=== PATIENT | male | born 1945 | race Caucasian/White ===

== ENCOUNTER 2019-09-14 06:28 | Inpatient (IN) | payer MEDICARE ==
[~2019-09-14] VITALS: Ht 175.3 cm; Wt 70.5 kg
--- OUTSIDE RECORDS SUMMARY | ~2019-09-14 | XMS | Encounter Summary ---
Demographics + + + | Address | [address] | | | [place] [address] | + + + | Home Phone | | + + + | Preferred Language | Unknown | + + + | Marital Status | Single | + + + | Hindu Affiliation | Unknown | + + + | Race | Unknown | + + + | Ethnic Group | Unknown | + + + Author + + + | Author | [facility] | | | and [facility] | + + + | Organization | [facility] | | | and [facility] | + + + | Address | Unknown | + + + | Phone | Unavailable | + + + Support + + + + + | Name | Relationship | Address | Phone | + + + + + | Val Torrez | ECON | [address] | | | | | [place] [address] | | + + + + + Care Team Providers + +------+ + | Care Director Critical Care Name | Role | Phone | + +------+ + | Shi Miramontes | PCP | | + +------+ + Reason for Visit Auth/Cert +--------+--------+ + + + + | Status | Reason | Specialty | Diagnoses / | Referred By | Referred To | | | | | Procedures | Contact | Contact | +--------+--------+ + + + + | | | | Diagnoses | | | | | | | Cellulitis | | | | | | | of foot | | | | | | | Cellulitis | | | | | | | of third | | | | | | | toe, left | | | | | | | Toe necrosis | | | | | | | (HCC) | | | | | | | 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 | | | | | | | foot (HCC) | | | | | | | | | | +--------+--------+ + + + + Encounter Details +--------+ + + + + | Date | Type | Department | Care Team | Description | +--------+ + + + + | 05/04/ | Anesthesia | [facility] | Vikram Cheung | | | 2019 | Event | [facility] | MD Hanh [address] | | | | | [address] | [place] | | | | | [place] | [id number] | | | | | [address] | [phone] | | | | | [phone] | | | +--------+ + + + + Anesthesia Record + + + + + | Procedure Name | Responsible | Anesthesia Start | Anesthesia Stop Time | | | Anesthesiologist | Time | | + + + + + | LEFT 3RD, 4TH, AND | Vikram Cheung, | 05/04/196 | 05/04/192248 | | 5TH TOE AMPUTATION | MD | | | | (Left Foot) | | | | + + + + + +----+---+ + + | Da | T | Event | Comment | | te | i | | | | | m | | | | | e | | | +----+---+ + + | 12 | 2 | An Checkout | Pre-use anesthesia machine/equipment checkout. | | /1 | 1 | | | | 2/ | 3 | | | | 20 | 0 | | | | 19 | | | | +----+---+ + + | | 2 | | | | | 1 | | | | | 4 | | | | | 5 | | | +----+---+ + + | | 2 | An Start | | | | 1 | Data | | | | 4 | | | | | 5 | | | +----+---+ + + | | 2 | An Start | Room ready, anesthesia equipment checked, essential drugs & | | | 1 | | equipment available. Patient Identity checked, anesthesia plan | | | 4 | | explained and consent obtained. Patient transported to OR, | | | 6 | | Monitors applied. Reassessment prior to anesthesia | | | | | induction/procedure. | +----+---+ + + | | 2 | an tsering now | | | | 1 | | | | | 4 | | | | | 7 | | | +----+---+ + + | | 2 | AN | Per surgeon request | | | 1 | Antibiotic | | | | 4 | declined | | | | 8 | | | +----+---+ + + | | 2 | Preoxygenat | Oxygen administered, patient sedated, ventilating spontaneously. | | | 1 | ed | | | | 5 | | | | | 4 | | | +----+---+ + + | | 2 | An | | | | 1 | Induction | | | | 5 | | | | | 5 | | | +----+---+ + + | | 2 | An | Smooth IV induction, easy mask airway. LMA placed and well | | | 1 | Intubation | seated. Breathing Circuit attached to LMA. BSEB/ETCO2 | | | 5 | | (auscultation and capnography) and placement confirmed. | | | 7 | | | +----+---+ + + | | 2 | AN Bite | | | | 1 | Block | | | | 5 | | | | | 8 | | | +----+---+ + + | | 2 | Seymour | | | | 2 | 43-degrees | | | | 0 | | | | | 0 | | | +----+---+ + + | | 2 | Pre-Procedu | | | | 2 | ral Timeout | | | | 0 | Completed | | | | 1 | | | +----+---+ + + | | 2 | First | | | | 2 | Inc/Proc St | | | | 0 | | | | | 2 | | | +----+---+ + + | | 2 | an tsering now | PACU 2 | | | 2 | | | | | 4 | | | | | 4 | | | +----+---+ + + | | 2 | Extubation/ | | | | 2 | Airway LDA | | | | 4 | Removal | | | | 4 | | | +----+---+ + + | | 2 | an stop | | | | 2 | data | | | | 4 | | | | | 4 | | | +----+---+ + + | | 2 | An Stop | Patient handed off to recovery nurse. | | | 4 | | | | | 9 | | | +----+---+ + + +------+ | Meds | +------+ + +--------+ | Name | Total | + +--------+ | propofol | 100 mg | + +--------+ | LR (Infusion) | 700 mL | + +--------+ + + | Name | + + | N2O Flow Rate (L/Min) | + + | O2 Flow Rate (L/Min) | + + | Insp O2 | + + | Exp SEV | + + | Air Flow Rate (L/Min) | + + + + | No blood administrations on file. | + + +--------+ + + + | Type | Details | Placement | Removal | +--------+ + + + | Wound | 05/04/19 (present upon arrival to | 05/04/19 2250 by | | | | [email or web address]); 2250; Incision; Left; | Trang Mata RN | | | | other (see comments) (3rd. 4th, | | | | | and 5th toes amputated); | | | | | amputation stump | | | +--------+ + + + | Wound | 02/17/19; 1257; Incision; Left; | 02/17/19 1257 by | 05/04/19 2347 by | | | foot; Amputation; 05/04/19; 2346 | Dimple Ferguson RN | Trang Mata RN | +--------+ + + + | Periph | 05/04/19; 173; Right; Posterior | 05/04/191736 by | 05/06/19 1430 by | | eral | (dorsal); Hand; [id number] | Grecia Suarez RN | Kenia Webster RN | | IV | catheter system; 20 gauge; 0; | | | | | distraction, tolerated well; | | | | | lumen/catheter not patent, | | | | | catheter/device intact; 05/06/19; | | | | | 1430 | | | +--------+ + + + | Airway | Placement Date: 05/04/19; | 05/04/192156 by | 05/04/192243 by | | | Placement Time: 2156 (created via | Vikramjuliano Cheung, | Vikram Cheung, | | | procedure documentation); Mask | MD | MD | | | Ventilation: EZ; Attempts: 1; | | | | | Airway Type: laryngeal mask; | | | | | Size: 5; Trauma: none; Placement | | | | | Check: exhaled CO2 detection | | | | | device, bilateral chest rise, | | | | | breath sounds equal bilaterally; | | | | | Removal Date: 05/04/19; Removal | | | | | Time: 2243; Additional Comments: | | | | | Smooth IV induction. LMA placed | | | | | and well seated. Secured in | | | | | place. Breathing Circuit attached | | | | | to LMA. BSEB/ETCO2 | | | | | (auscultation and capnography) | | | | | and placement confirmed. | | | +--------+ + + + documented in this encounter Social History + + + +--------+------+ | Tobacco Use | Types | Packs/Day | Years | Date | | | | | Used | | + + + +--------+------+ | Current Every Day | Cigarettes | 1 | 59 | | | Smoker | | | | | + + + +--------+------+ + +---+---+---+ | Smokeless Tobacco: | | | | | Never Used | | | | + +---+---+---+ + + +---------+ + | Alcohol Use | Drinks/Week | oz/Week | Comments | + + +---------+ + | Yes | 28 Cans of beer | 28.0 | | + + +---------+ + + + + | Sex Assigned at | Date Recorded | | | | + + + | Not on file | | + + + + + + + | Job Start Date | Occupation | Industry | + + + + | Not on file | Not on file | Not on file | + + + + + + + + | Travel History | Travel Start | Travel End | + + + + + + | No recent travel history available. | + + documented as of this encounter Functional Status + + + + | Functional Status | Response | Date of Assessment | + + + + | Are you deaf or do you have serious | No | 03/20/2017 | | difficulty hearing? | | | + + + + | Are you blind or do you have serious | Yes | 03/20/2017 | | difficulty seeing, even when wearing | | | | glasses? | | | + + + + | Do you have serious difficulty walking or | Yes | 03/20/2017 | | climbing stairs? (5 years old or older) | | | + + + + | Do you have difficulty dressing or bathing? | No | 03/20/2017 | | (5 years old or older) | | | + + + + | Because of a physical, mental, or emotional | No | 03/20/2017 | | condition, do you have difficulty doing | | | | errands alone such as visiting a doctor's | | | | office or shopping? [15 years old or | | | | older)] | | | + + + + + + + + | Cognitive Status | Response | Date of Assessment | + + + + | Because of a physical, mental, or emotional | No | 03/20/2017 | | condition, do you have serious difficulty | | | | concentrating, remembering, or making | | | | decisions? (5 years old or older) | | | + + + + documented as of this encounter Plan of Treatment Not on filedocumented as of this encounter Procedures + +--------+ + + + | Procedure Name | Priori | Date/Time | Associated Diagnosis | Comments | | | ty | | | | + +--------+ + + + | ANE AIRWAY NOTE | Routin | 05/04/2019 | | Results for this | | | e | 10:07 PM | | procedure are in the | | | | PST | | results section. | + +--------+ + + + documented in this encounter Results Airway (05/04/2019 10:07 PM PST) + + + | Narrative | Performed At | + + + | Vikram Cheung MD 05/04/2019 10:07 PM Anesthesia Airway | | | Placement 05/04/2019 9:57 PM Preprocedure check: patient | | | identified, oxygen, airway assessed, patient reassessment prior to | | | induction, airway equipment checked and suction Rapid Sequence | | | Induction: no Mask ventilation: easy Attempts: 1 Airway type: | | | laryngeal mask Size: 5 Cuffed: cuffed Route, reference point: | | | center of mouth Tube secured with: adhesive tape Trauma: none Tube | | | placement verification: carbon dioxide detection, equal bilateral | | | breath sounds and bilateral chest rise Performing provider: Vikram | | | Hanh Cheung MD Authorizing provider: Vikram Cheung MD | | | Comments: Smooth IV induction. LMA placed and well seated. Secured | | | in place. Breathing Circuit attached to LMA. BSEB/ETCO2 | | | (auscultation and capnography) and placement confirmed. Please | | | see intraoperative grid for any additional medication documentation. | | + + + documented in this encounter Visit Diagnoses Not on filedocumented in this encounter Administered Medications + +---------+ +------+------+------+ | Medication Order | MAR | Action | Dose | Rate | Site | | | Action | Date | | | | + +---------+ +------+------+------+ | lactated ringers (LR) infusion | New Bag | 05/04/20 | | | | | Intravenous, CONTINUOUS PRN, | | 19 9:48 | | | | | Starting [facility] 05/04/19 at 2148, | | PM PST | | | | | Anesthesia Intra-op | | | | | | + +---------+ +------+------+------+ +---+---+ | | | +---+---+ + +-------+ +-------+---+---+ | propofol (DIPRIVAN) injection | Given | 05/04/20 | 50 mg | | | | Intravenous, PRN, Starting Nelida | | 19 9:55 | | | | | 05/04/19 at 2154, Anesthesia | | PM PST | | | | | Intra-op | | | | | | + +-------+ +-------+---+---+ +-------+ +-------+---+---+ | Given | 05/04/20 | 50 mg | | | | | 19 9:54 | | | | | | PM PST | | | | +-------+ +-------+---+---+ +---+---+ | | | +---+---+ documented in this encounter"
--- OUTSIDE RECORDS SUMMARY | ~2019-09-14 | XMS | Encounter Summary ---
Demographics + + + | Address | [address] | | | [place] [address] | + + + | Home Phone | | + + + | Preferred Language | Unknown | + + + | Marital Status | Single | + + + | Sikhism Affiliation | Unknown | + + + | Race | Unknown | + + + | Ethnic Group | Unknown | + + + Author + + + | Author | [facility] | | | and [facility] | + + + | Organization | [facility] | | | [...] | | | | | [place] [address] | | + + + + + Care Team Providers + +------+ + | Care Barometers Calibrator Name | Role | Phone | + +------+ + | Debora Butts | PCP | | + +------+ + Reason for Visit + + + | Reason | Comments | + + + | Abdominal Pain | | + + + Auth/Cert +--------+--------+ + + + + | Status | Reason | Specialty | Diagnoses / | Referred By | Referred To | | | | | Procedures | Contact | Contact | +--------+--------+ + + + + | Closed | | | Diagnoses | | | | | | | Ileus (HCC) | | | | | | | | | | +--------+--------+ + + + + Encounter Details +--------+ + + + + | Date | Type | Department | Care Team | Description | +--------+ + + + + | 11/28/ | Hospital | [facility] | Behzad Whitney, | Ileus (HCC) (Primary | | 2013 - | Encounter | [facility] | [address] | Dx); Diabetes | | | | [address] | [place] | mellitus (HCC); | | 12/03/ | | [place] [id number] | [id number] | Hyponatremia | | 2013 | | [phone] | | | | | | | Dc Danielle MD | | | | | | [address] | | | | | | [place] | | | | | | [address] | | | | | | | | +--------+ + + + + Social History + + + +--------+------+ | Tobacco Use | Types | Packs/Day | Years | Date | | | | | Used | | + + + +--------+------+ | Current Every Day | Cigarettes | 1 | | | | Smoker | | | | | + + + +--------+------+ + +---+---+---+ | Smokeless Tobacco: | | | | | Never Used | | | | + +---+---+---+ + + +---------+ + | Alcohol Use | Drinks/Week | oz/Week | Comments | + + +---------+ + | Yes | | | 4 times/week | + + +---------+ + + + [...] + + documented as of this encounter Last Filed Vital Signs + + + + + | Vital Sign | Reading | Time Taken | Comments | + + + + + | Blood Pressure | 154/75 | 12/03/2013 8:00 AM | | | | | PDT | | + + + + + | Pulse | 88 | 12/03/2013 8:00 AM | | | | | PDT | | + + + + + | Temperature | 37.6 C (99.7 F) | 12/03/2013 8:00 AM | | | | | PDT | | + + + + + | Respiratory Rate | 20 | 12/03/2013 8:00 AM | | | | | PDT | | + + + + + | Oxygen Saturation | 92% | 12/03/2013 8:00 AM | | | | | PDT | | + + + + + | Inhaled Oxygen | - | - | | | Concentration | | | | + + + + + | Weight | 88.5 kg (195 lb) | 11/29/2013 12:00 AM | | | | | PDT | | + + + + + | Height | 172.7 cm (5' 8") | 11/28/2013 1:07 PM | | | | | PDT | | + + + + + | Body Mass Index | 29.65 | 11/28/2013 1:07 PM | | | | | PDT | | + + + + + documented in this encounter Discharge Summaries Bipin Mcconnell MD - 01/09/2014 11:[address] [address] DISCHARGE SUMMARY BIPIN MCCONNELL MD Patient: VALENTINA MUELLER Admitting: DC DANIELLE MR #: [id number] LOC: PT TYPE: Adm Date: 11/28/2013 : 1945 Date Of Service: 12/03/2013 DATE OF ADMISSION: 11/28/2013. DATE OF DISCHARGE: 12/03/2013. ADMITTING DIAGNOSIS: Acute cholecystitis PROCEDURE PERFORMED: The patient underwent laparoscopic cholecystectomy with intraoperati ve cholangiogram, laparoscopic appendectomy, lysis of adhesions, and repair of a small deborah l tear. Postoperatively, the patient had an ileus for a period of time and was doing fairl y well. He was placed on Zosyn perioperatively. His blood sugars were doing well. He was managed by the medical hospitalist. He continued to improve each day, was ambulating. By postoperative day 2, the patient wanted his NG tube out, was voiding okay, and felt like h is abdominal pain was significantly improved. On postoperative day #4, the patient was giv en some clear liquids and was tolerating those. His abdomen was a little bit protuberant. He was given a Dulcolax suppository and his diet was advanced. On postoperative day 5, alejandro lakhani had a bowel movement and was voiding okay. He felt good enough to go home, was afebrile, and was subsequently sent home with followup with myself in approximately 1 week's time. The patient was given pain medications and stool softeners and to have a limitation of no lifting over 20 pounds for approximately 2 weeks postoperatively. The patient was sent malu e by Dr. Huang in my absence. Laboratory studies had returned to normal levels. BIPIN MCCONNELL MD Dictated by BIPIN MCCONNELL MD 01/09/2014 11:53:42 Transcribed on 01/09/2014 12:14:26 by laurie job# [id number] Confirmation #: [id number] signed by Bipin Mcconnell MD at 01/09/2014 1:43 PM P DTdocumented in this encounter Medications at Time of Discharge + + + +---------+--------+ + | Medication | Sig | Dispensed | Refills | Start | End Date | | | | | | Date | | + + + +---------+--------+ + | ascorbic acid | Take 500 mg by mouth | | 0 | | | | (VITAMIN C) 500 mg | Daily. | | | | | | tablet | | | | | | + + + +---------+--------+ + | aspirin 81 MG EC | Take 81 mg by mouth | | 0 | | | | tablet | Daily. | | | | | + + + +---------+--------+ + | calcium-vitamin D | Take 1,200 mg by | | 0 | | | | (CALCIUM 600 + D) | mouth every evening. | | | | | | 600-400 MG-UNIT TABS | | | | | | + + + +---------+--------+ + | cholecalciferol | Take 2,000 Units by | | 0 | | | | (VITAMIN D-3) 1,000 | mouth Daily. | | | | | | units tablet | | | | | | + + + +---------+--------+ + | docusate sodium | Take 250 mg by mouth | | 0 | | | | (COLACE) 250 MG | 2 times daily. | | | | | | capsule | | | | | | + + + +---------+--------+ + | magnesium oxide | Take 840 mg by mouth | | 0 | | | | (MAOX) 420 MG TABS | Daily. | | | | | + + + +---------+--------+ + | metformin | Take 1,000 mg by | | 0 | | | | (GLUCOPHAGE) 1000 MG | mouth 2 times daily | | | | | | tablet | (with breakfast & | | | | | | | dinner). | | | | | + + + +---------+--------+ + | senna (SENOKOT) | Take 1 tablet by | | 0 | | | | 8.6 mg tablet | mouth Daily. | | | | | + + + +---------+--------+ + | simvastatin | Take 20 mg by mouth | | 0 | | | | (ZOCOR) 20 mg tablet | nightly. | | | | | + + + +---------+--------+ + | traZODone | Take 150 mg by mouth | | 0 | | | | (DESYREL) 150 MG | nightly. | | | | | | tablet | | | | | | + + + +---------+--------+ + | cyanocobalamin | Take 500 mcg by | | 0 | | | | (VITAMIN B-12) 500 | mouth Daily. | | | | 7 | | mcg tablet | | | | | | + + + +---------+--------+ + | gabapentin | Take 600 mg by mouth | | 0 | | | | (NEURONTIN) 300 mg | 2 times daily. Take | | | | 7 | | capsule | two capsules by | | | | | | | moutheach morning | | | | | | | and take two | | | | | | | capsules at noon and | | | | | | | take three capsules | | | | | | | at bedtime. | | | | | + + + +---------+--------+ + | | Take 1 tablet by | | 0 | | | | HYDROcodone-acetamin | mouth 4 times daily | | | | 9 | | ophen (NORCO) 10-325 | as needed for Pain. | | | | | | mg per tablet | | | | | | + + + +---------+--------+ + | lisinopril | Take 20 mg by mouth | | 0 | | | | (PRINIVIL, ZESTRIL) | Daily. | | | | 7 | | 20 mg tablet | | | | | | + + + +---------+--------+ + | metoprolol | Take 25 mg by mouth | | 0 | | | | succinate | Daily. | | | | 7 | | (TOPROL-XL) 25 mg 24 | | | | | | | hr tablet | | | | | | + + + +---------+--------+ + | nicotine | Place 1 patch onto | | 0 | | | | (NICODERM) 14 mg/24 | the skin every 24 | | | | 6 | | hr | hours. | | | | | + + + +---------+--------+ + | sildenafil | Take 50 mg by mouth | | 0 | | | | (VIAGRA) 50 MG | as needed. | | | | 9 | | tablet | | | | | | + + + +---------+--------+ + documented as of this encounter Progress Notes Wilder Huang MD - 12/03/2013 9:16 AM PDTHe had a BM. Minimal pain. Voiding OK. Wan ts to go home. VS stable. Afebrile. Abdomen: Soft, minimal tenderness. Now having serous drainage from lateral trocar site. Plan: Discharge home. F/U with Dr. Mcconnell this week. Dc Rendon MD - 12/02/2013 2:47 PM PDT [facility] Hospitalist Progress Note Valentina Mueller is a 68 y.o. male ASSESSMENT and PLAN: 1. Gangrenous cholecystitis Patient continues on Zosyn postoperatively. 2. Hyponatremia Improved. 3. Diabetes mellitus Blood sugars remain good being 123-144 SUBJECTIVE: Mr. Mueller reports he is feeling better each day. His pain is better managed, he states h e feels like he is going to have a bowel movement soon, and is hopeful for discharge in the a.m. VITALS: Temp: 36.6 C (97.9 F), Pulse: 64 , Resp: 20 , BP: 124/64 mmHg, SpO2 92 % on room air at flow rate 2 L/min Temp Min: 36.6 C (97.9 F) Max: 37.2 C (99 F) Weight: 88.451 kg (195 lb) Intake/Output Summary (Last 24 hours) at 12/02/13 1447 Last data filed at 12/02/13 1400 Gross per 24 hour Intake 1937 ml Output 820 ml Net 1117 ml PHYSICAL EXAM: Cardiovascular: Regular rate and rhythm Respiratory: Clear Abdomen: Soft with postoperative tenderness. Bowel sounds hypoactive but present DIAGNOSTIC STUDIES: Available data and images were reviewed personally. Significant results and findings are a ddressed here or in the Assessment and Plan. Lab Results Component Value Date HGB 13.6 12/02/2013 HCT 40.0 12/02/2013 PLT 365 12/02/2013 WBC 12.4* 12/02/2013 Lab Results Component Value Date NA 139 12/02/2013 K 3.4* 12/02/2013 CL 106 12/02/2013 CO2 25 12/02/2013 CREA 0.64 12/02/2013 BUN 5* 12/02/2013 CRP 132.9* 06/10/2012 ESR 12 06/08/2012 POC GLUCOSE Date/Time Value Range Status 06/10/2012 1645 99 79 - 150 md/dL Final POC Glucose Date/Time Value Range Status 12/02/2013 1220 144 79-150 mg/dL Final 12/02/2013 0700 133 79-150 mg/dL Final 12/01/2013 2048 123 79-150 mg/dL Final POC GLUCOSE Date/Time Value Range Status 06/10/2012 1645 99 79 - 150 md/dL Final POC Glucose Date/Time Value Range Status 12/02/2013 1220 144 79-150 mg/dL Final 12/02/2013 0700 133 79-150 mg/dL Final 12/01/2013 2048 123 79-150 mg/dL Final No results found. Total time of approximately 20 minutes was spent with the patient and/or patient's family, and/or on the patient's floor/unit, of which more than 50% was spent counseling and/or coord ination the patient's care as outlined above. Dc Danielle 12/02/2013 14:47 [facility] Portions of this chart may have been created with [employer] voice recognition software. Occasi onal wrong-word or sound-alike substitutions may have occurred due to the inherent leigh itations of voice recognition software. Please read the chart carefully and recognize, using context, where these substitutions have occurred Wilder Perkins MD - 12/02/2013 12:54 PM PDTNo BM yet. Tolerating clear liquids. Good pain control Afebrile. VS stable Abdomen-protruberant, soft, minimal tenderness. Plan: Dulcolax suppository. Advance diet.Electronically signed by Wilder Huang MD at 0 12/02/2013 12:55 PM Wilder Perkins MD - 12/01/2013 6:[address] Mcconnell Comfortable. Wants NG out. Denies flatus or stool. Voiding ok. Says his abdominal pain is much better than preop. Afeb. VS stable. I/O ok Lungs clear Heart regular Abd. Mildly distended, soft, a few BS IMP: Postop ileus Plan: D/C NG tube. MOM. P M Dc Rendon MD - 12/01/2013 3:55 PM PDT [facility] Hospitalist Progress Note Valentina Mueller is a 68 y.o. male ASSESSMENT and PLAN: 1. Gangrenous cholecystitis Patient remains on Zosyn postoperatively. Surgery will assess later today, with the patien t currently without a BM or gas but feeling clinically improved. 2. Diabetes mellitus Blood sugars are doing well ranging from 99-140. 3. Hyponatremia Resolved 4. History of small bowel injury with take down of adhesions Doing well in the postop phase SUBJECTIVE: Patient reports that he is better. He is wondering what he is getting his NG out and won ders when he gets to go home. He reports some abdominal fullness but reduction in pain comp ared to yesterday. He reports no bowel gas being passed thus far had no stooling. VITALS: Temp: 36.6 C (97.9 F), Pulse: 97 , Resp: 18 , BP: 131/63 mmHg, SpO2 95 % on room air at flow rate 2 L/min Temp Min: 36.6 C (97.9 F) Max: 37.6 C (99.7 F) Weight: 88.451 kg (195 lb) Intake/Output Summary (Last 24 hours) at 12/01/13 1555 Last data filed at 12/01/13 1400 Gross per 24 hour Intake 1100 ml Output 1950 ml Net -850 ml PHYSICAL EXAM: Cardiovascular: Regular rate and rhythm Respiratory: Clear to auscultation and percussion Abdomen: Postoperative abdomen with minimal bowel sounds but no abnormal tenderness DIAGNOSTIC STUDIES: Available data and images were reviewed personally. Significant results and findings are a ddressed here or in the Assessment and Plan. Lab Results Component Value Date HGB 14.6 12/01/2013 HCT 42.5 12/01/2013 PLT 369 12/01/2013 WBC 12.0* 12/01/2013 Lab Results Component Value Date NA 142 12/01/2013 K 4.4 12/01/2013 CL 106 12/01/2013 CO2 23* 12/01/2013 CREA 0.76 12/01/2013 BUN 9 12/01/2013 CRP 132.9* 06/10/2012 ESR 12 06/08/2012 POC GLUCOSE Date/Time Value Range Status 06/10/2012 1645 99 79 - 150 md/dL Final POC Glucose Date/Time Value Range Status 12/01/2013 1203 132 79-150 mg/dL Final 12/01/2013 0638 99 79-150 mg/dL Final 11/30/2013 2010 117 79-150 mg/dL Final POC GLUCOSE Date/Time Value Range Status 06/10/2012 1645 99 79 - 150 md/dL Final POC Glucose Date/Time Value Range Status 12/01/2013 1203 132 79-150 mg/dL Final 12/01/2013 0638 99 79-150 mg/dL Final 11/30/20132009 117 79-150 mg/dL Final Fl Cholangiogram Intraoperative 11/30/2013 INTRAOPERATIVE CHOLANGIOGRAM: 11/30/2013 10:34 AM CLINICAL HISTORY: Cholecystect dianne. intra op FINDINGS: C-arm spot films from the operating room are reviewed. These show t he injection of contrast material into the cystic duct. Contrast outlines a normal caliber c ommon bile duct and common hepatic duct with normal appearance of the intrahepatic ducts. No stricture or dilated segment is seen. On some of the early images radiolucent filling defec ts are questioned in the distal common bile duct near the ampulla. No reflux of contrast int o the pancreatic duct. Only a small amount of contrast can be seen flowing into the duodenum . IMPRESSION - Normal caliber biliary ducts, but radiolucent filling defect is questioned i n the distal common bile duct near the ampulla. This may represent stone or clot. Only a sma ll amount of contrast flows into the duodenum. Dictated and Signed by: Osmin Loredo MD Electronically signed: 11/30/2013 10:57 AM Total time of approximately 25 minutes was spent with the patient and/or patient's family, and/or on the patient's floor/unit, of which more than 50% was spent counseling and/or coord ination the patient's care as outlined above. Dc Danielle 12/01/2013 15:55 [facility] Portions of this chart may have been created with [employer] voice recognition software. Occasi onal wrong-word or sound-alike substitutions may have occurred due to the inherent leigh itations of voice recognition software. Please read the chart carefully and recognize, using context, where these substitutions have occurred arker, Dc Lakhani MD - 0 11/30/2013 5:09 PM PDT [facility] Hospitalist Progress Note Valentina Mueller is a 68 y.o. male ASSESSMENT and PLAN: 1. Gangrenous cholecystitis Patient remains on Zosyn postoperatively. We'll review with surgery the duration of treatm ent plan. 2. Appendicitis Status post resection 3. Small bowel obstruction Status post lysis of adhesions and repair of small bowel tear 4. Hyponatremia We'll obtain followup BMP in the a.m. 5. Diabetes mellitus Patient has slight scale and slurred thus far however blood sugars have been 75-100 not req uiring coverage. SUBJECTIVE: Patient currently is in discomfort postoperatively. He had a significant surgery today i ncluding removal of diseased gallbladder and appendix in addition to the take down of adhesi ons and repair of an enterostomy injury. VITALS: Temp: 37.2 C (99 F), Pulse: 100 , Resp: 20 , BP: 140/67 mmHg, SpO2 94 % on nasal cannul a at flow rate 1.5 L/min Temp Min: 36.2 C (97.2 F) Max: 37.2 C (99 F) Weight: 88.451 kg (195 lb) Intake/Output Summary (Last 24 hours) at 11/30/13 1709 Last data filed at 11/30/13 1500 Gross per 24 hour Intake 4347 ml Output 2650 ml Net 1697 ml PHYSICAL EXAM: Cardiovascular: Regular rate and rhythm Respiratory: Clear currently Abdomen: Obvious postoperative change; bowel sounds currently not present Extremities: SCD in place DIAGNOSTIC STUDIES: Available data and images were reviewed personally. Significant results and findings are a ddressed here or in the Assessment and Plan. Lab Results Component Value Date HGB 13.9 11/29/2013 HCT 41.2 11/29/2013 PLT 303 11/29/2013 WBC 10.9 11/29/2013 Lab Results Component Value Date NA 134* 11/29/2013 K 4.4 11/29/2013 CL 102 11/29/2013 CO2 21* 11/29/2013 CREA 1.09 11/29/2013 BUN 32* 11/29/2013 CRP 132.9* 06/10/2012 ESR 12 06/08/2012 POC GLUCOSE Date/Time Value Range Status 06/10/2012 1645 99 79 - 150 md/dL Final POC Glucose Date/Time Value Range Status 11/30/2013 0711 75* 79-150 mg/dL Final 11/29/2013 1742 92 79-150 mg/dL Final 11/29/2013 1141 96 79-150 mg/dL Final POC GLUCOSE Date/Time Value Range Status 06/10/2012 1645 99 79 - 150 md/dL Final POC Glucose Date/Time Value Range Status 11/30/2013 0711 75* 79-150 mg/dL Final 11/29/2013 1742 92 79-150 mg/dL Final 11/29/2013 1141 96 79-150 mg/dL Final Fl Cholangiogram Intraoperative 11/30/2013 INTRAOPERATIVE CHOLANGIOGRAM: 11/30/2013 10:34 AM CLINICAL HISTORY: Cholecystect dianne. intra op FINDINGS: C-arm spot films from the operating room are reviewed. These show t he injection of contrast material into the cystic duct. Contrast outlines a normal caliber c ommon bile duct and common hepatic duct with normal appearance of the intrahepatic ducts. No stricture or dilated segment is seen. On some of the early images radiolucent filling defec ts are questioned in the distal common bile duct near the ampulla. No reflux of contrast int o the pancreatic duct. Only a small amount of contrast can be seen flowing into the duodenum . IMPRESSION - Normal caliber biliary ducts, but radiolucent filling defect is questioned i n the distal common bile duct near the ampulla. This may represent stone or clot. Only a sma ll amount of contrast flows into the duodenum. Dictated and Signed by: Osmin Loredo MD Electronically signed: 11/30/2013 10:57 AM Nm Hepatobiliary 11/29/2013 NUCLEAR MEDICINE HEPATIC BILIARY SCAN: 11/29/2013 CLINICAL HISTORY: Right upper qu adrant pain. Biliary sludge on ultrasound, with no stones identified. FINDINGS: Patient is given 6.0 mCi of technetium labeled Choletec followed by scanning over the abdomen for 1 stephanie r. Initial images show good clearance from the background and a grossly normal hepatic outli ne suggesting normal hepatocellular function. Common bile duct is first seen at 12 minutes a nd small bowel activity is first seen at 18 minutes. This would be within normal range. Ove r 60 minutes of scanning small bowel activity steadily increases. No gallbladder is identifi ed at any time. Small amount tracer extends proximally into the left upper quadrant, suggest ing gastric reflux of bile. No other ectopic tracer accumulation. Because of nonvisualizati on of the gallbladder and patient's nothing by mouth status, no fatty meal challenge was giv en. IMPRESSION - 1. Nonfilling of the gallbladder over 60 minutes. This can be seen with ac tive cholecystitis. No common bile duct obstruction. 2. Gastric reflux of bile. Dictated a nd Signed by: Osmin Loredo MD Electronically signed: 11/29/2013 2:19 PM Total time of approximately 25 minutes was spent with the patient and/or patient's family, and/or on the patient's floor/unit, of which more than 50% was spent counseling and/or coord ination the patient's care as outlined above. Dc Danielle 11/30/2013 17:09 [facility] Portions of this chart may have been created with [employer] voice recognition software. Occasi onal wrong-word or sound-alike substitutions may have occurred due to the inherent leigh itations of voice recognition software. Please read the chart carefully and recognize, using context, where these substitutions have occurred Mary Clay RN - 0 11/30/2013 2:55 PM PDTPt back to rron after surgery, BP 156/91, HR 96, sats 95% on 2L/min O2 , patient medicated with dilaudid, dressings saturated on abd changed along with new gown. I V fluids cont at 100ml/hr. Mary Clay RN - 11/30/2013 10:19 AM PDTPatient down to OR for surgery per SAV hernandez. Dc Rendon MD - 11/29/2013 5:01 PM PDT [facility] Hospitalist Progress Note Valentina Mueller is a 68 y.o. male ASSESSMENT and PLAN: 1. Ileus Patient remains on nasogastric suctioning with 450 cc of nasogastric fluid out thus far tod ay and 700 yesterday after admission. He reports his abdomen is less tender. He does repor t that he had a bowel movement with Dulcolax suppository yesterday and that he feels that th is helped him. He's not had further BMs today. 2. Possible cholecystitis The patient had a high scan today which showed no visualization of the gallbladder. His hi story was of not eating for the past 3 days albeit he was not significantly azotemic. He ot herwise has mild thickening of the wall of his gallbladder and some sludge in his gallbladde r but no other findings on either ultrasound or CT. Given his hida scan findings I've asked Dr. Mcconnell to assess him relative to his opinion about whether or not this patient could lazo ve cholecystitis causing his ileus and his overall infirmity. Time is spent today discussin g with the patient gallbladder disease and the function of the gallbladder and the patient i s anxious for cholecystectomy but I've advised him that we may or may not recommend it and w e will rely on Dr. Mcconnell expertise relative to his thoughts about potential benefit. 3. Hyponatremia Likely secondary to the patient's water intake prior to admission and improved with IV flui ds SUBJECTIVE: She reports today that he symptomatically has improved relative to discomfort. Is tolera ting NG suctioning and continues to have a moderate output.he had no further problems with n ausea VITALS: Temp: 36.8 C (98.2 F), Pulse: 93 , Resp: 20 , BP: 105/55 mmHg, SpO2 93 % on room air at flow rate 2 L/min Temp Min: 36.5 C (97.7 F) Max: 36.8 C (98.2 F) Weight: 88.451 kg (195 lb) Intake/Output Summary (Last 24 hours) at 11/29/13 1701 Last data filed at 11/29/13 1400 Gross per 24 hour Intake 1796 ml Output 2050 ml Net -254 ml PHYSICAL EXAM: Cardiovascular: Regular rate and rhythm Respiratory: Clear with few scattered rhonchi Abdomen: Soft with tenderness but improved compared with the last 24 hours. Hypoactive b owel sounds are present Extremities: Not edema DIAGNOSTIC STUDIES: Available data and images were reviewed personally. Significant results and findings are a ddressed here or in the Assessment and Plan. Lab Results Component Value Date HGB 13.9 11/29/2013 HCT 41.2 11/29/2013 PLT 303 11/29/2013 WBC 10.9 11/29/2013 Lab Results Component Value Date NA 134* 11/29/2013 K 4.4 11/29/2013 CL 102 11/29/2013 CO2 21* 11/29/2013 CREA 1.09 11/29/2013 BUN 32* 11/29/2013 CRP 132.9* 06/10/2012 ESR 12 06/08/2012 POC GLUCOSE Date/Time Value Range Status 06/10/2012 1645 99 79 - 150 md/dL Final POC Glucose Date/Time Value Range Status 11/29/2013 1141 96 79-150 mg/dL Final 11/28/2013 2044 130 79-150 mg/dL Final POC GLUCOSE Date/Time Value Range Status 06/10/2012 1645 99 79 - 150 md/dL Final POC Glucose Date/Time Value Range Status 11/29/2013 1141 96 79-150 mg/dL Final 11/28/2013 2044 130 79-150 mg/dL Final Xr Abdomen Ap 11/29/2013 1 VIEW ABDOMEN: 11/28/2013 4:58 PM CLINICAL HISTORY: nasogastric tube placement co nfirmation COMPARISON: CT of this date FINDINGS: Nasogastric tube is present with tip in t he stomach. Multiple dilated loops of gas-filled small bowel with only a small amount of col onic gas. Appearances may represent obstruction or ileus. No free air. IMPRESSION - Satisfa ctory nasogastric tube position. Multiple dilated gas-filled loops of small bowel compatible with obstruction or ileus. Dictated and Signed by: Osmin Loredo MD Electronically sign ed: 11/29/2013 10:57 AM Nm Hepatobiliary 11/29/2013 NUCLEAR MEDICINE HEPATIC BILIARY SCAN: 11/29/2013 CLINICAL HISTORY: Right upper qu adrant pain. Biliary sludge on ultrasound, with no stones identified. FINDINGS: Patient is given 6.0 mCi of technetium labeled Choletec followed by scanning over the abdomen for 1 stephanie r. Initial images show good clearance from the background and a grossly normal hepatic outli ne suggesting normal hepatocellular function. Common bile duct is first seen at 12 minutes a nd small bowel activity is first seen at 18 minutes. This would be within normal range. Ove r 60 minutes of scanning small bowel activity steadily increases. No gallbladder is identifi ed at any time. Small amount tracer extends proximally into the left upper quadrant, suggest ing gastric reflux of bile. No other ectopic tracer accumulation. Because of nonvisualizati on of the gallbladder and patient's nothing by mouth status, no fatty meal challenge was giv en. IMPRESSION - 1. Nonfilling of the gallbladder over 60 minutes. This can be seen with ac tive cholecystitis. No common bile duct obstruction. 2. Gastric reflux of bile. Dictated a nd Signed by: Osmin Loredo MD Electronically signed: 11/29/2013 2:[address] Abdomen Pelvis W Contrast 11/28/[address] ABDOMEN AND PELVIS 11/28/2013 2:12 PM CLINICAL HISTORY: ABDOMINAL P AIN COMPARISON: None available TECHNIQUE: Axial images are performed through the ab domen and pelvis following the uneventful intravenous administration of 100 mL Omnipaque 350 contrast. Coronal and sagittal reformations are also performed. ABDOMEN FINDINGS: Mild dependent density and bandlike opacities in the imaged lung bases favor atelectasis. Small heavily calcified granulomata are present in the right lung base. Imaged mediastinum is unremarkable. There is generalized hypoattenuation of the liver, consistent with fatty i nfiltration. At least mild, generalized gallbladder wall thickening is suggested. No calci fied gallstone or biliary ductal dilation is evident. The spleen, pancreas, and adrenal gla nds are unremarkable. Numerous tiny calcifications are present along the margins of the devante al sinuses, many if not all of which appear vascular in origin. Numerous tiny low-attenuati on renal cysts are visible. There is no hydronephrosis. Moderately dilated, gas and fluid filled segments of small bowel are present throughout the abdomen. A focal transition point is not identified, although the distal ileum, which contains feculent appearing material, i s smaller in caliber relative to the dilated segments. More normal caliber segments of prox imal jejunum are visible also. The stomach and duodenum are mostly decompressed, containing a small volume of low attenuation fluid. The right colon contains gas and a small to moder ate volume of stool. The cecum is positioned in the anterior right mid abdomen. Normal jia iber appendix is visible in the right mid to lower abdomen. The left colon is decompressed. Minimal low-attenuation free fluid is present in the lower bowel mesentery. No bowel wall thickening, free air, pneumatosis, organized fluid, pathologic lymph node enlargement or he rnia is evident. There is extensive calcified and noncalcified plaque within the aortoiliac vessels. Heavily calcified stenoses of the proximal left common iliac artery and bilateral proximal superficial femoral arteries is suggested. Multilevel lumbar degenerative disc di sease and spondylosis are present, with variable multifactorial central canal and neuroforam inal stenosis. There is bilateral spondylolysis involving the lowest lumbar type vertebra, with anterolisthesis and severe neuroforaminal stenosis at the lumbosacral junction. PELVI S FINDINGS: The prostate is mild to moderately enlarged and contains central calcifications . Curvilinear calcifications are also present in the seminal vesicles. The bladder is unre markable, aside from the presence of a thin caliber urachal remnant extending toward the umb ilicus. Tiny fat-containing bilateral inguinal hernias are suggested. No free air or patho logic lymph node enlargement is evident. Asymmetric atrophy of the right gluteal musculatur e is noted. Bones and soft tissues are otherwise unremarkable. IMPRESSION - 1. MODERAT FAVIAN DILATED, GAS AND FLUID FILLED SEGMENTS OF SMALL BOWEL THROUGHOUT MUCH OF THE ABDOMEN WIT HOUT A DISCRETE TRANSITION POINT TO FAVOR THE PRESENCE OF HIGH-GRADE OBSTRUCTION. THE TERMI NAL ILEUM CONTAINS FECULENT APPEARING MATERIAL AND IS SMALLER IN CALIBER THAN THE DILATED SE GMENTS, HOWEVER NO BOWEL WALL THICKENING, PNEUMATOSIS OR OTHER SUSPICIOUS FINDING IS EVIDENT . A NORMAL CALIBER APPENDIX IS PRESENT. THERE IS NO EVIDENCE OF PERFORATION OR ABSCESS. 2 . NON-SPECIFIC GENERALIZED GALLBLADDER WALL THICKENING WITHOUT VISIBLE CALCIFIED GALLSTONE OR BILIARY DUCTAL DILATION. CLINICAL AND LABORATORY CORRELATION ADVISED, ALONG WITH CONSIDE RATION FOR FOLLOW-UP SONOGRAPHY. 3. GENERALIZED HYPOATTENUATION OF THE LIVER, CONSISTENT W ITH FATTY INFILTRATION. 4. TINY FAT-CONTAINING INGUINAL HERNIAS. 5. 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 6. LUMBAR DEGENERATIVE DISC DISEASE AND SPONDYLOSIS WITH LOWER LUMB AR SPONDYLOLYSIS, ANTEROLISTHESIS AND MULTILEVEL STENOSIS. Images were provided for interpr etation on November 28, 2013 at 1440 hours. Results were finalized at 1455 hours. Dictated and Signed by: Musa Davis MD Electronically signed: 11/28/2013 2:58 PM Us Abdomen Limited 11/29/2013 LIMITED RIGHT UPPER QUADRANT ULTRASOUND: 11/28/2013 3:30 PM CLINICAL HISTORY: ABDO DONNA PAIN COMPARISON:None FINDINGS: Liver:The liver is of normal echogenicity and echo ar chitecture. There is no intrahepatic biliary or venous dilation. No focal hepatic abnormalit ies are present. Gallbladder:Gallbladder shows a mildly thickened wall at 3.8 mm. No pericho lecystic fluid. Nonmobile echogenic focus along the gallbladder wall, compatible with polyp. Small amount of layering biliary sludge. No definite stones. Right upper quadrant tendernes s to transducer pressure. CBD: Common bile duct measures 6.3 mm Pancreas:Not well seen. Righ t kidney:Right kidney is also included on this examination. It shows normal echogenicity and echo architecture. There is no hydronephrosis. Maximum dimension is 13.0 cm. Vasculature:Bl ood flow in the inferior vena cava and hepatic veins is normal. Portal venous blood flow is normal in pattern and direction. IMPRESSION -Small amount of sludge in the gallbladder with out defined stone. Gallbladder wall thickening and possible polyp. Dictated and Signed by: Osmin Loredo MD Electronically signed: 11/29/2013 8:03 AM Total time of approximately 30 minutes was spent with the patient and/or patient's family, and/or on the patient's floor/unit, of which more than 50% was spent counseling and/or coord ination the patient's care as outlined above. Dc Danielle 11/29/2013 17:01 [facility] Portions of this chart may have been created with [employer] voice recognition software. Occasi onal wrong-word or sound-alike substitutions may have occurred due to the inherent leigh itations of voice recognition software. Please read the chart carefully and recognize, using context, where these substitutions have occurred att Zamarripa RN - 11/29/2013 2:49 PM PDTPatient placed back on low intermittent suction on NG tube.Electro nically signed by Matt Zamarripa RN at 11/29/2013 2:50 PM Jennifer Marte RN - 11/28/2013 7:15 PM [id number] Pt arrived from ER A/0x3 c/o abd pain , NG via rt. nare had to be retaped, IV in left AC resecured and extention placed, flushed w/o difficulty, pt has no t voided all day, immediately bladder scanned for 506cc, states he would like to void, jason tj up to sitting postion on side of bed voided 250cc, Dr. Danielle notified. IVF started, Re port given to Lynnette, meds started per MD order. documented in this encounter Plan of Treatment Not on filedocumented as of this encounter Procedures + +--------+ + + + | Procedure Name | Priori | Date/Time | Associated Diagnosis | Comments | | | ty | | | | + +--------+ + + + | POC GLUCOSE | Routin | 12/03/2013 | | Results for this | | | e | 11:39 AM | | procedure are in the | | | | PDT | | results section. | + +--------+ + + + | POC GLUCOSE | Routin | 12/03/2013 | | Results for this | | | e | 7:04 AM | | procedure are in the | | | | PDT | | results section. | + +--------+ + + + | POC GLUCOSE | Routin | 12/02/2013 | | Results for this | | | e | 9:12 PM | | procedure are in the | | | | PDT | | results section. | + +--------+ + + + | POC GLUCOSE | Routin | 12/02/2013 | | Results for this | | | e | 4:26 PM | | procedure are in the | | | | PDT | | results section. | + +--------+ + + + | POC GLUCOSE | Routin | 12/02/2013 | | Results for this | | | e | 12:20 PM | | procedure are in the | | | | PDT | | results section. | + +--------+ + + + | POC GLUCOSE | Routin | 12/02/2013 | | Results for this | | | e | 7:00 AM | | procedure are in the | | | | PDT | | results section. | + +--------+ + + + | CBC WITH | Routin | 12/02/2013 | | Results for this | | DIFFERENTIAL | e | 6:23 AM | | procedure are in the | | | | PDT | | results section. | + +--------+ + + + | BASIC METABOLIC | Routin | 12/02/2013 | | Results for this | | PANEL | e | 6:23 AM | | procedure are in the | | | | PDT | | results section. | + +--------+ + + + | POC GLUCOSE | Routin | 12/01/2013 | | Results for this | | | e | 8:48 PM | | procedure are in the | | | | PDT | | results section. | + +--------+ + + + | POC GLUCOSE | Routin | 12/01/2013 | | Results for this | | | e | 6:00 PM | | procedure are in the | | | | PDT | | results section. | + +--------+ + + + | POC GLUCOSE | Routin | 12/01/2013 | | Results for this | | | e | 12:03 PM | | procedure are in the | | | | PDT | | results section. | + +--------+ + + + | POC GLUCOSE | Routin | 12/01/2013 | | Results for this | | | e | 6:38 AM | | procedure are in the | | | | PDT | | results section. | + +--------+ + + + | CBC WITH | Routin | 12/01/2013 | | Results for this | | DIFFERENTIAL | e | 6:32 AM | | procedure are in the | | | | PDT | | results section. | + +--------+ + + + | COMPREHENSIVE | Routin | 12/01/2013 | | Results for this | | METABOLIC PANEL | e | 6:32 AM | | procedure are in the | | | | PDT | | results section. | + +--------+ + + + | POC GLUCOSE | Routin | 11/30/2013 | | Results for this | | | e | 8:10 PM | | procedure are in the | | | | PDT | | results section. | + +--------+ + + + | POC GLUCOSE | Routin | 11/30/2013 | | Results for this | | | e | 5:14 PM | | procedure are in the | | | | PDT | | results section. | + +--------+ + + + | FL CHOLANGIOGRAM | Routin | 11/30/2013 | | Results for this | | INTRAOPERATIVE | e | 10:34 AM | | procedure are in the | | | | PDT | | results section. | + +--------+ + + + | LAPAROSCOPIC | | 11/30/2013 | Acute gangrenous | | | CHOLECYSTECTOMY W/ | | 8:52 AM | cholecystitis | | | INTRA OPERATIVE | | PDT | Iatrogenic | | | CHOLANGIOGRAM | | | enterotomy | | | | | | Abdominal adhesions | | | | | | Small bowel | | | | | | obstruction (HCC) | | | | | | Appendicitis | | + +--------+ + + + | POC GLUCOSE | Routin | 11/30/2013 | | Results for this | | | e | 7:11 AM | | procedure are in the | | | | PDT | | results section. | + +--------+ + + + | POC GLUCOSE | Routin | 11/29/2013 | | Results for this | | | e | 5:42 PM | | procedure are in the | | | | PDT | | results section. | + +--------+ + + + | NM HEPATOBILIARY | Routin | 11/29/2013 | | Results for this | | | e | 1:03 PM | | procedure are in the | | | | PDT | | results section. | + +--------+ + + + | POC GLUCOSE | Routin | 11/29/2013 | | Results for this | | | e | 11:41 AM | | procedure are in the | | | | PDT | | results section. | + +--------+ + + + | CBC WITH | Routin | 11/29/2013 | | Results for this | | DIFFERENTIAL | e | 5:19 AM | | procedure are in the | | | | PDT | | results section. | + +--------+ + + + | COMPREHENSIVE | Routin | 11/29/2013 | | Results for this | | METABOLIC PANEL | e | 5:19 AM | | procedure are in the | | | | PDT | | results section. | + +--------+ + + + | POC GLUCOSE | Routin | 11/28/2013 | | Results for this | | | e | 8:44 PM | | procedure are in the | | | | PDT | | results section. | + +--------+ + + + | XR ABDOMEN AP | STAT | 11/28/2013 | | Results for this | | | | 4:58 PM | | procedure are in the | | | | PDT | | results section. | + +--------+ + + + | US ABDOMEN LIMITED | STAT | 11/28/2013 | | Results for this | | | | 4:08 PM | | procedure are in the | | | | PDT | | results section. | + +--------+ + + + | CT ABDOMEN PELVIS W | STAT | 11/28/2013 | | Results for this | | CONTRAST | | 2:23 PM | | procedure are in the | | | | PDT | | results section. | + +--------+ + + + | CBC NO DIFFERENTIAL | STAT | 11/28/2013 | | Results for this | | | | 1:29 PM | | procedure are in the | | | | PDT | | results section. | + +--------+ + + + | LIPASE | STAT | 11/28/2013 | | Results for this | | | | 1:29 PM | | procedure are in the | | | | PDT | | results section. | + +--------+ + + + | COMPREHENSIVE | STAT | 11/28/2013 | | Results for this | | METABOLIC PANEL | | 1:29 PM | | procedure are in the | | | | PDT | | results section. | + +--------+ + + + documented in this encounter Results POC Glucose (12/03/2013 11:39 AM PDT) + +-------+ + + + | Component | Value | Ref Range | Performed | Pathologist | | | | | At | Signature | + +-------+ + + + | Glucose, | 124 | 79 - 150 mg/dL | [facility] | | | | | [facility] | | | | | [facility] - | | | | | | LABORATORY | | + +-------+ + + + + + | Specimen | + + | Blood | + + + + + + + | Performing | Address | City/State/Zipcode | Phone Number | | Organization | | | | + + + + + | [facility] | [address] | [place] | [phone] | | [facility] | | [address] | | | - LABORATORY | | | | + + + + + | [facility] | [address] | [place] | | | [facility] | | [address], [facility] | | | - LABORATORY | | | | + + + + + POC Glucose (12/03/2013 7:04 AM PDT) + +-------+ + + + | Component | Value | Ref Range | Performed | Pathologist | | | | | At | Signature | + +-------+ + + + | Glucose, | 128 | 79 - 150 mg/dL | [facility] | [facility] | | | | | | [facility]ICAL | | | | | | CENTER - | | | | | | LABORATORY | | + +-------+ + + + + + | Specimen | + + | Blood | + + + + + + + | Performing | Address | City/State/Zipcode | Phone Number | | Organization | | | | + + + + + | [facility] | [address] | [place], [place] | [phone] | | [facility] | | [address] | | | - LABORATORY | | | | + + + + + | [facility] | [address] | [place], [place] | | | [facility] | | [id number] [place] [address] | | | - LABORATORY | | | | + + + + + POC Glucose (12/02/2013 9:12 PM PDT) + +-------+ + + + | Component | Value | Ref Range | Performed | Pathologist | | | | | At | Signature | + +-------+ + + + | Glucose, | 125 | 79 - 150 mg/dL | [facility] | [facility] | [facility] | | | | | | MEDICAL | | | | | | CENTER - | | | | | | LABORATORY | | + +-------+ + + + + + | Specimen | + + | Blood | + + + + + + + | Performing | Address | City/State/Zipcode | Phone Number | | Organization | | | | + + + + + | [facility] | [address] | [place] | [phone] | | [facility] | | [address] | | | - LABORATORY | | | | + + + + + | [facility] | [address] | [place] | | | [facility] | | [address] | | | - LABORATORY | | | | + + + + + POC Glucose (12/02/2013 4:26 PM PDT) + +-------+ + + + | Component | Value | Ref Range | Performed | Pathologist | | | | | At | Signature | + +-------+ + + + | Glucose, | 112 | 79 - 150 mg/dL | [facility] | [facility] | [facility] | | | | | | MEDICAL | | | | | | CENTER - | | | | | | LABORATORY | | + +-------+ + + + + + | Specimen | + + | Blood | + + + + + + + | Performing | Address | City/[facility]/Zipcode | Phone Number | | Organization | | | | + + + + + | [facility] | [address] | [place], [place] | [phone] | | [facility] | | [address] | | | - LABORATORY | | | | + + + + + | [facility] | [address] | [place], [place] | | | [facility] | | [address], [facility] | | | - LABORATORY | | | | + + + + + POC Glucose (12/02/2013 12:20 PM PDT) + +-------+ + + + | Component | Value | Ref Range | Performed | Pathologist | | | | | At | Signature | + +-------+ + + + | Glucose, | 144 | 79 - 150 mg/dL | [facility] | | [facility] | [facility] | | | | | | MEDICAL | | | | | | CENTER - | | | | | | LABORATORY | | + +-------+ + + + + + | Specimen | + + | Blood | + + + + + + + | Performing | Address | City/State/Zipcode | Phone Number | | Organization | | | | + + + + + | [facility] | [address] | [place] | [phone] | | [facility] | | [address] | | | - LABORATORY | | | | + + + + + | [facility] | [address] | [place] | | | [facility] | | [id number] | | | - LABORATORY | | | | + + + + + POC Glucose (12/02/2013 7:00 AM PDT) + +-------+ + + + | Component | Value | Ref Range | Performed | Pathologist | | | | | At | Signature | + +-------+ + + + | Glucose, | 133 | 79 - 150 mg/dL | [facility] | | [facility] | | [facility] | | | | | | MEDICAL | | | | | | CENTER - | | | | | | LABORATORY | | + +-------+ + + + + + | Specimen | + + | Blood | + + + + + + + | Performing | Address | City/State/Zipcode | Phone Number | | Organization | | | | + + + + + | [facility] | [address] | [place] | [phone] | | [facility] | | [address] | | | - LABORATORY | | | | + + + + + | [facility] | [address] | [place] | | | [facility] | | [address], [place] | | | - LABORATORY | | | | + + + + + Basic Metabolic Panel (12/02/2013 6:23 AM PDT) + + + + + + | Component | Value | Ref Range | Performed | Pathologist | | | | | At | Signature | + + + + + + | Na | 139 | 136 - 149 | [facility] | | | | | mmol/L | [facility] | | | | | | MEDICAL | | | | | | CENTER - | | | | | | LABORATORY | | + + + + + + | K | 3.4 (L) | 3.5 - 5.1 | [facility] | | | | | mmol/L | [facility] | | | | | | MEDICAL | | | | | | CENTER - | | | | | | LABORATORY | | + + + + + + | Cl | 106 | 98 - 109 mmol/L | [facility] | | | | | | [facility] | | | | | | MEDICAL | | | | | | CENTER - | | | | | | LABORATORY | | + + + + + + | CO2 | 25 | 24 - 31 mmol/L | [facility] | | | | | | [facility] | | | | | | MEDICAL | | | | | | CENTER - | | | | | | LABORATORY | | + + + + + + | Anion Gap | 8 | 3 - 16 mmol/L | [facility] | | | | | | [facility] | | | | | | MEDICAL | | | | | | CENTER - | | | | | | LABORATORY | | + + + + + + | Glucose | 163 (H) | 70 - 109 mg/dL | [facility] | | | | | | [facility] | | | | | | MEDICAL | | | | | | CENTER - | | | | | | LABORATORY | | + + + + + + | BUN | 5 (L) | 7 - 18 mg/dL | [facility] | | | | | [facility] | | | | | | MEDICAL | | | | | | CENTER - | | | | | | LABORATORY | | + + + + + + | Creatinine | 0.64 | 0.60 - 1.30 | [facility] | | | | | mg/dL | [facility] | | | | | | MEDICAL | | | | | | CENTER - | | | | | | LABORATORY | | + + + + + + | eGFR if not | >60Comment: GLOMERULAR | >=60 | [facility] | | | | FILTRATION | mL/min/1.73m2 | [facility] | | | [facility]GANDAN | RATE,ESTIMATED | | MEDICAL | | | | mL/min/1.48c8Qteu than | | CENTER - | | | | 60 Chronic kidney | | LABORATORY | | | | disease,if found over a | | | | | | 3-month period.Less than | | | | | | 15 Kidney failureFor | | | | | | | | | | | | Americans,multiply the | | | | | | calculated GFR by 1.21. | | | | | | | | | | + + + + + + | Calcium | 8.4 | 8.3 - 10.5 | [facility] | | | | | mg/dL | [facility] | | | | | | MEDICAL | | | | | | CENTER - | | | | | | LABORATORY | | + + + + + + | BUN/Creatin | 7.8 | | [facility] | | | ine Ratio | | | [facility] | | | | | | MEDICAL | | | | | | CENTER - | | | | | | LABORATORY | | + + + + + + + + | Specimen | + + | Blood | + + + + + + + | Performing | Address | City/State/Zipcode | Phone Number | | Organization | | | | + + + + + | [facility] | [address] | [place], [place] | [phone] | | [facility] | | [address] | | | - LABORATORY | | | | + + + + + | [facility] | [address] | [place], [place] | | | [facility] | | [id number] | | | - LABORATORY | | | | + + + + + CBC with Differential (12/02/2013 6:23 AM PDT) + + + + + + | Component | Value | Ref Range | Performed | Pathologist | | | | | At | Signature | + + + + + + | WBC | 12.4 (H) | 4.0 - 11.0 K/uL | [facility] | | | | | [facility] | | | | | | MEDICAL | | | | | | CENTER - | | | | | | LABORATORY | | + + + + + + | RBC | 4.13 (L) | 4.30 - 5.70 | [facility] | | | | | M/uL | [facility] | | | | | | [facility] | | | | | | CENTER - | | | | | | LABORATORY | | + + + + + + | Hemoglobin | 13.6 | 13.5 - 18.0 | [facility] | | | | | g/dL | [facility] | | | | | | [facility]ICAL | | | | | | CENTER - | | | | | | LABORATORY | | + + + + + + | Hematocrit | 40.0 | 40.0 - 51.0 % | [facility] | | | | | | [facility] | | | | | | MEDICAL | | | | | | CENTER - | | | | | | LABORATORY | | + + + + + + | MCV | 96.8 | 83.0 - 101.0 fL | [facility] | | | | | | [facility] | | | | | | MEDICAL | | | | | | CENTER - | | | | | | LABORATORY | | + + + + + + | MCH | 32.9 | 28.0 - 35.0 pg | [facility] | | | | | | [facility] | | | | | | MEDICAL | | | | | | CENTER - | | | | | | LABORATORY | | + + + + + + | MCHC | 34.0 | 32.0 - 36.0 | [facility] | | | | | g/dL | [facility] | | | | | | MEDICAL | | | | | | CENTER - | | | | | | LABORATORY | | + + + + + + | RDW-CV | 14.0 | <15.0 % | [facility] | | | | | | [facility] | | | | | | MEDICAL | | | | | | CENTER - | | | | | | LABORATORY | | + + + + + + | Platelet | 365 | 140 - 440 K/uL | [facility] | | | Count | | | [facility] | | | | | | MEDICAL | | | | | | CENTER - | | | | | | LABORATORY | | + + + + + + | MPV | 10.9 | fL | [facility] | | | | | | [facility] | | | | | | MEDICAL | | | | | | CENTER - | | | | | | LABORATORY | | + + + + + + | % | 86.0 (H) | 45.0 - 82.0 % | [facility] | | | Neutrophils | | | [facility] | | | | | | MEDICAL | | | | | | CENTER - | | | | | | LABORATORY | | + + + + + + | % | 7.8 (L) | 20.0 - 45.0 % | [facility] | | | Lymphocytes | | | [facility] | | | | | | MEDICAL | | | | | | CENTER - | | | | | | LABORATORY | | + + + + + + | % Monocytes | 5.2 | 4.0 - 12.0 % | [facility] | | | | | | [facility] | | | | | | [facility]ICAL | | | | | | CENTER - | | | | | | LABORATORY | | + + + + + + | % | 0.2 | 0.0 - 5.0 % | [facility] | | | Eosinophils | | | [facility] | | | | | | MEDICAL | | | | | | CENTER - | | | | | | LABORATORY | | + + + + + + | % Basophils | 0.8 | 0.0 - 1.0 % | [facility] | | | | | | [facility] | | | | | | MEDICAL | | | | | | CENTER - | | | | | | LABORATORY | | + + + + + + | Absolute | 10.70 (H) | 1.80 - 8.50 | [facility] | | | Neutrophils | | K/uL | [facility] | | | | | | MEDICAL | | | | | | CENTER - | | | | | | LABORATORY | | + + + + + + | Absolute | 1.00 | 0.60 - 3.20 | [facility] | | | Lymphocytes | | K/uL | [facility] | | | | | | MEDICAL | | | | | | CENTER - | | | | | | LABORATORY | | + + + + + + | Absolute | 0.70 | 0.00 - 1.00 | [facility] | | | Monocytes | | K/uL | [facility] | | | | | | MEDICAL | | | | | | CENTER - | | | | | | LABORATORY | | + + + + + + | Absolute | 0.00 | 0.00 - 0.40 | [facility] | | | Eosinophils | | K/uL | [facility] | | | | | | MEDICAL | | | | | | CENTER - | | | | | | LABORATORY | | + + + + + + | Absolute | 0.10 | 0.00 - 0.10 | [facility] | | | Basophils | | K/uL | [facility] | | | | | | MEDICAL | | | | | | CENTER - | | | | | | LABORATORY | | + + + + + + + + | Specimen | + + | Blood | + + + + + + + | Performing | Address | City/State/Zipcode | Phone Number | | Organization | | | | + + + + + | [facility] | [address] | [place] | [phone] | | [facility] | | [address] | | | - LABORATORY | | | | + + + + + | [facility] | [address] | [place] | | | [facility] | | [address], [facility] | | | - LABORATORY | | | | + + + + + [facility] Glucose (12/01/2013 8:48 PM PDT) + +-------+ + + + | Component | Value | Ref Range | Performed | Pathologist | | | | | At | Signature | + +-------+ + + + | Glucose, | 123 | 79 - 150 mg/dL | [facility] | | | POC | | | [facility] | | | | | | [facility] | | | | | | CENTER - | | | | | | LABORATORY | | + +-------+ + + + + + | Specimen | + + | Blood | + + + + + + + | Performing | Address | City/State/Zipcode | Phone Number | | Organization | | | | + + + + + | [facility] | [address] | [place], [place] | [phone] | | [facility] | | [address] | | | - LABORATORY | | | | + + + + + | [facility] | [address] | [place], [place] | | | [facility] | | [address], [facility] | | | - LABORATORY | | | | + + + + + POC Glucose (12/01/2013 6:00 PM PDT) + +-------+ + + + | Component | Value | Ref Range | Performed | Pathologist | | | | | At | Signature | + +-------+ + + + | Glucose, | 134 | 79 - 150 mg/dL | [facility] | | | POC | | | [facility] | | | | | | MEDICAL | | | | | | CENTER - | | | | | | LABORATORY | | + +-------+ + + + + + | Specimen | + + | Blood | + + + + + + + | Performing | Address | City/State/Zipcode | Phone Number | | Organization | | | | + + + + + | [facility] | [address] | [place] | [phone] | | [facility] | | [address] | | | - LABORATORY | | | | + + + + + | [facility] | [address] | [place], [place] | | | [facility] | | [address], [facility] | | | - LABORATORY | | | | + + + + + POC Glucose (12/01/2013 12:03 PM PDT) + +-------+ + + + | Component | Value | Ref Range | Performed | Pathologist | | | | | At | Signature | + +-------+ + + + | Glucose, | 132 | 79 - 150 mg/dL | [facility] | | | POC | | | [facility] | | | | | | MEDICAL | | | | | | CENTER - | | | | | | LABORATORY | | + +-------+ + + + + + | Specimen | + + | Blood | + + + + + + + | Performing | Address | City/State/Zipcode | Phone Number | | Organization | | | | + + + + + | [facility] | [address] | [place], [place] | [phone] | | [facility] | | [address] | | | - LABORATORY | | | | + + + + + | [facility] | [address] | [place] | | | [facility] | | [id number] [place] [address] | | | - LABORATORY | | | | + + + + + POC Glucose (12/01/2013 6:38 AM PDT) + +-------+ + + + | Component | Value | Ref Range | Performed | Pathologist | | | | | At | Signature | + +-------+ + + + | Glucose, | 99 | 79 - 150 mg/dL | [facility] | | | POC | | | [facility] | | | | | | MEDICAL | | | | | | CENTER - | | | | | | LABORATORY | | + +-------+ + + + + + | Specimen | + + | Blood | + + + + + + + | Performing | Address | City/State/Zipcode | Phone Number | | Organization | | | | + + + + + | [facility] | [address] | [place] | [phone] | | [facility] | | [address] | | | - LABORATORY | | | | + + + + + | [facility] | [address] | [place] | | | [facility] | | [address], [facility] | | | - LABORATORY | | | | + + + + + Comprehensive Metabolic Panel (12/01/2013 6:32 AM PDT) + + + + + + | Component | Value | Ref Range | Performed | Pathologist | | | | | At | Signature | + + + + + + | Na | 142 | 136 - 149 | [facility] | | | | | mmol/L | [facility] | | | | | | MEDICAL | | | | | | CENTER - | | | | | | LABORATORY | | + + + + + + | K | 4.4 | 3.5 - 5.1 | [facility] | | | | | mmol/L | [facility] | | | | | | MEDICAL | | | | | | CENTER - | | | | | | LABORATORY | | + + + + + + | Cl | 106 | 98 - 109 mmol/L | [facility] | | | | | | [facility] | | | | | | MEDICAL | | | | | | CENTER - | | | | | | LABORATORY | | + + + + + + | CO2 | 23 (L) | 24 - 31 mmol/L | [facility] | | | | | | [facility] | | | | | | MEDICAL | | | | | | CENTER - | | | | | | LABORATORY | | + + + + + + | Anion Gap | 13 | 3 - 16 mmol/L | [facility] | | | | | | [facility] | | | | | | MEDICAL | | | | | | CENTER - | | | | | | LABORATORY | | + + + + + + | Glucose | 131 (H) | 70 - 109 mg/dL | [facility] | | | | | | [facility] | | | | | | MEDICAL | | | | | | CENTER - | | | | | | LABORATORY | | + + + + + + | BUN | 9 | 7 - 18 mg/dL | [facility] | | | | | | [facility] | | | | | | MEDICAL | | | | | | CENTER - | | | | | | LABORATORY | | + + + + + + | Creatinine | 0.76 | 0.60 - 1.30 | [facility] | | | | | mg/dL | [facility] | | | | | | MEDICAL | | | | | | CENTER - | | | | | | LABORATORY | | + + + + + + | eGFR if not | >60Comment: GLOMERULAR | >=60 | [facility] | | | | FILTRATION | mL/min/1.73m2 | [facility] | | | [facility] | RATE,ESTIMATED | | MEDICAL | | | | mL/min/1.31q6Qhdb than | | CENTER - | | | | 60 Chronic kidney | | LABORATORY | | | | disease,if found over a | | | | | | 3-month period.Less than | | | | | | 15 Kidney failureFor | | | | | | | | | | | | Americans,multiply the | | | | | | calculated GFR by 1.21. | | | | | | | | | | + + + + + + | Calcium | 8.7 | 8.3 - 10.5 | [facility] | | | | | mg/dL | [facility] | | | | | | MEDICAL | | | | | | CENTER - | | | | | | LABORATORY | | + + + + + + | Albumin | 2.3 (L) | 3.2 - 5.0 g/dL | [facility] | | | | | | [facility] | | | | | | MEDICAL | | | | | | CENTER - | | | | | | LABORATORY | | + + + + + + | Bilirubin | 1.0 | 0.1 - 1.5 mg/dL | [facility] | | | Total | | | [facility] | | | | | | MEDICAL | | | | | | CENTER - | | | | | | LABORATORY | | + + + + + + | Total | 5.7 (L) | 6.0 - 7.8 g/dL | [facility] | | | Protein | | | [facility] | | | | | | MEDICAL | | | | | | CENTER - | | | | | | LABORATORY | | + + + + + + | AST | 19 | 10 - 42 U/L | [facility] | | | | | | [facility] | | | | | | MEDICAL | | | | | | CENTER - | | | | | | LABORATORY | | + + + + + + | ALT | 20 | 6 - 45 U/L | [facility] | | | | | | [facility] | | | | | | MEDICAL | | | | | | CENTER - | | | | | | LABORATORY | | + + + + + + | Alkaline | 82 | 40 - 110 U/L | [facility] | | | Phosphatase | | | [facility] | | | | | | MEDICAL | | | | | | CENTER - | | | | | | LABORATORY | | + + + + + + | Globulin | 3.4 | g/dL | [facility] | | | | | | [facility] | | | | | | MEDICAL | | | | | | CENTER - | | | | | | LABORATORY | | + + + + + + | Albumin/Ivon | 0.7 | | [facility] | | | bulin Ratio | | | [facility] | | | | | | MEDICAL | | | | | | CENTER - | | | | | | LABORATORY | | + + + + + + | BUN/Creatin | 11.8 | | [facility] | | | ine Ratio | | | [facility] | | | | | | MEDICAL | | | | | | CENTER - | | | | | | LABORATORY | | + + + + + + + + | Specimen | + + | Blood | + + + + + + + | Performing | Address | City/State/Zipcode | Phone Number | | Organization | | | | + + + + + | [facility] | [address] | [place] | [phone] | | [facility] | | [address] | | | - LABORATORY | | | | + + + + + | [facility] | [address] | [place] | | | [facility] | | [address] | | | - LABORATORY | | | | + + + + + CBC with Differential (12/01/2013 6:32 AM PDT) + + + + + + | Component | Value | Ref Range | Performed | Pathologist | | | | | At | Signature | + + + + + + | WBC | 12.0 (H) | 4.0 - 11.0 K/uL | [facility] | | | | | | [facility] | | | | | | MEDICAL | | | | | | CENTER - | | | | | | LABORATORY | | + + + + + + | RBC | 4.39 | 4.30 - 5.70 | [facility] | | | | | M/uL | [facility] | | | | | | MEDICAL | | | | | | CENTER - | | | | | | LABORATORY | | + + + + + + | Hemoglobin | 14.6 | 13.5 - 18.0 | [facility] | | | | | g/dL | [facility] | | | | | | MEDICAL | | | | | | CENTER - | | | | | | LABORATORY | | + + + + + + | Hematocrit | 42.5 | 40.0 - 51.0 % | [facility] | | | | | | [facility] | | | | | | MEDICAL | | | | | | CENTER - | | | | | | LABORATORY | | + + + + + + | MCV | 96.8 | 83.0 - 101.0 fL | [facility] | | | | | | [facility] | | | | | | MEDICAL | | | | | | CENTER - | | | | | | LABORATORY | | + + + + + + | MCH | 33.3 | 28.0 - 35.0 pg | [facility] | | | | | | [facility] | | | | | | MEDICAL | | | | | | CENTER - | | | | | | LABORATORY | | + + + + + + | MCHC | 34.4 | 32.0 - 36.0 | [facility] | | | | | g/dL | [facility] | | | | | | MEDICAL | | | | | | CENTER - | | | | | | LABORATORY | | + + + + + + | RDW-CV | 13.8 | <15.0 % | [facility] | | | | | | [facility] | | | [facility] | | MEDICAL | | | | | | CENTER - | | | | | | LABORATORY | | + + + + + + | Platelet | 369 | 140 - 440 K/uL | [facility] | | | Count | | | [facility] | | | | | | MEDICAL | | | | | | CENTER - | | | | | | LABORATORY | | + + + + + + | MPV | 10.0 | fL | [facility] | | | | | | [facility] | | | | | | MEDICAL | | | | | | CENTER - | | | | | | LABORATORY | | + + + + + + | % | 82.8 (H) | 45.0 - 82.0 % | [facility] | | | Neutrophils | | | [facility] | | | | | | MEDICAL | | | | | | CENTER - | | | | | | LABORATORY | | + + + + + + | % | 10.0 (L) | 20.0 - 45.0 % | [facility] | | | Lymphocytes | | | [facility] | | | | | | MEDICAL | | | | | | CENTER - | | | | | | LABORATORY | | + + + + + + | % Monocytes | 6.7 | 4.0 - 12.0 % | [facility] | | | | | | [facility] | | | | | | MEDICAL | | | | | | CENTER - | | | | | | LABORATORY | | + + + + + + | % | 0.2 | 0.0 - 5.0 % | [facility] | | | Eosinophils | | | [facility] | | | | | | MEDICAL | | | | | | CENTER - | | | | | | LABORATORY | | + + + + + + | % Basophils | 0.3 | 0.0 - 1.0 % | [facility] | | | | | | [facility] | | | | | | MEDICAL | | | | | | CENTER - | | | | | | LABORATORY | | + + + + + + | Absolute | 9.90 (H) | 1.80 - 8.50 | [facility] | | | Neutrophils | | K/uL | [facility] | | | | | | MEDICAL | | | | | | CENTER - | | | | | | LABORATORY | | + + + + + + | Absolute | 1.20 | 0.60 - 3.20 | [facility] | | | Lymphocytes | | K/uL | [facility] | | | | | | MEDICAL | | | | | | CENTER - | | | | | | LABORATORY | | + + + + + + | Absolute | 0.80 | 0.00 - 1.00 | [facility] | | | Monocytes | | K/uL | [facility] | | | | | | MEDICAL | | | | | | CENTER - | | | | | | LABORATORY | | + + + + + + | Absolute | 0.00 | 0.00 - 0.40 | [facility] | | | Eosinophils | | K/uL | [facility] | | | | | | MEDICAL | | | | | | CENTER - | | | | | | LABORATORY | | + + + + + + | Absolute | 0.00 | 0.00 - 0.10 | [facility] | | | Basophils | | K/uL | [facility] | | | | | | MEDICAL | | | | | | CENTER - | | | | | | LABORATORY | | + + + + + + + + | Specimen | + + | Blood | + + + + + + + | Performing | Address | City/State/Zipcode | Phone Number | | Organization | | | | + + + + + | [facility] | [address] | [place] | [phone] | | [facility] | | [address] | | | - LABORATORY | | | | + + + + + | [facility] | [address] | [place], [place] | | | [facility] | | [address], [facility] | | | - LABORATORY | | | | + + + + + POC Glucose (11/30/2013 8:10 PM PDT) + +-------+ + + + | Component | Value | Ref Range | Performed | Pathologist | | | | | At | Signature | + +-------+ + + + | Glucose, | 117 | 79 - 150 mg/dL | [facility] | | | POC | | | [facility] | | | | | | MEDICAL | | | | | | CENTER - | | | | | | LABORATORY | | + +-------+ + + + + + | Specimen | + + | Blood | + + + + + + + | Performing | Address | City/State/Zipcode | Phone Number | | Organization | | | | + + + + + | [facility] | [address] | [place] | [phone] | | [facility] | | [address] | | | - LABORATORY | | | | + + + + + | [facility] | [address] | [place] | | | [facility] | | [address], [facility] | | | - LABORATORY | | | | + + + + + POC Glucose (11/30/2013 5:14 PM PDT) + +-------+ + + + | Component | Value | Ref Range | Performed | Pathologist | | | | | At | Signature | + +-------+ + + + | Glucose, | 140 | 79 - 150 mg/dL | [facility] | | | POC | | | [facility] | | | | | | MEDICAL | | | | | | CENTER - | | | | | | LABORATORY | | + +-------+ + + + + + | Specimen | + + | Blood | + + + + + + + | Performing | Address | City/State/Zipcode | Phone Number | | Organization | | | | + + + + + | [facility] | [address] | [place], [place] | [phone] | | [facility] | | [address] | | | - LABORATORY | | | | + + + + + | [facility] | [address] | [place], [place] | | | [facility] | | [address] | | | - LABORATORY | | | | + + + + + FL Cholangiogram Intraoperative (11/30/2013 10:34 AM PDT) + + | Specimen | + + | | + + + + + | Narrative | Performed At | + + + | INTRAOPERATIVE CHOLANGIOGRAM: 11/30/2013 10:34 AM CLINICAL | [facility] | | HISTORY: Cholecystectomy. intra op FINDINGS: C-arm spot films from | LAB | | the operating room are reviewed. These show the injection of | | | contrast material into the cystic duct. Contrast outlines a normal | | | caliber common bile duct and common hepatic duct with normal | | | appearance of the intrahepatic ducts. No stricture or dilated segment | | | is seen. On some of the early images radiolucent filling defects are | | | questioned in the distal common bile duct near the ampulla. No | | | reflux of contrast into the pancreatic duct. Only a small amount of | | | contrast can be seen flowing into the duodenum. IMPRESSION - | | | Normal caliber biliary ducts, but radiolucent filling defect is | | | questioned in the distal common bile duct near the ampulla. This may | | | represent stone or clot. Only a small amount of contrast flows into | | | the duodenum. Dictated and Signed by: Osmin Loredo MD | | | Electronically signed: 11/30/2013 10:57 AM | | + + + + + | Procedure Note | + + | Gordy, Rad Results In - 11/30/2013 11:00 AM PDT INTRAOPERATIVE CHOLANGIOGRAM: 11/30/2013 | | 10:34 AMCLINICAL HISTORY: Cholecystectomy. intra opFINDINGS: C-arm spot films from the | | operating room are reviewed. These show theinjection of contrast material into the | | cystic duct. Contrast outlines a normalcaliber common bile duct and common hepatic duct | | with normal appearance of theintrahepatic ducts. No stricture or dilated segment is | | seen. On some of theearly images radiolucent filling defects are questioned in the | | distal commonbile duct near the ampulla. No reflux of contrast into the pancreatic duct. | | Onlya small amount of contrast can be seen flowing into the duodenum.IMPRESSION - | | Normal caliber biliary ducts, but radiolucent filling defect isquestioned in the distal | | common bile duct near the ampulla. This may representstone or clot. Only a small amount | | of contrast flows into the duodenum.Dictated and Signed by: Osmin Loredo MD | | Electronically signed: 11/30/2013 10:57 AM | |IMPRESSION - Normal caliber biliary ducts, but radiolucent filling defect is | |questioned in the distal common bile duct near the ampulla. This may represent | |stone or clot. Only a small amount of contrast flows into the duodenum. | | | |Dictated and Signed by: Osmin Loredo MD | | Electronically signed: 11/30/2013 10:57 AM | + + + +---------+ + + | Performing | Address | City/State/Zipcode | Phone Number | | Organization | | | | + +---------+ + + | [facility] | | | [phone] | + +---------+ + + | [facility] | | | [phone] | + +---------+ + + POC Glucose (11/30/2013 7:11 AM PDT) + +--------+ + + + | Component | Value | Ref Range | Performed | Pathologist | | | | | At | Signature | + +--------+ + + + | Glucose, | 75 (L) | 79 - 150 mg/dL | [facility] | | | [facility] | | | [facility] | | | | | | [facility]ICAL | | | | | | CENTER - | | | | | | LABORATORY | | + +--------+ + + + + + | Specimen | + + | Blood | + + + + + + + | Performing | Address | City/State/Zipcode | Phone Number | | Organization | | | | + + + + + | [facility] | [address] | [place] | [phone] | | [facility] | | [address] | | | - LABORATORY | | | | + + + + + | [facility] | [address] | [place] | | | [facility] | | [address], [facility] | | | - LABORATORY | | | | + + + + + POC Glucose (11/29/2013 5:42 PM PDT) + +-------+ + + + | Component | Value | Ref Range | Performed | Pathologist | | | | | At | Signature | + +-------+ + + + | Glucose, | 92 | 79 - 150 mg/dL | [facility] | | | POC | | | [facility] | | | | | | MEDICAL | | | | | | CENTER - | | | | | | LABORATORY | | + +-------+ + + + + + | Specimen | + + | Blood | + + + + + + + | Performing | Address | City/State/Zipcode | Phone Number | | Organization | | | | + + + + + | [facility] | [address] | [place], [place] | [phone] | | [facility] | | [address] | | | - LABORATORY | | | | + + + + + | [facility] | [address] | [place], [place] | | | [facility] | | [id number] [place] [address] | | | - LABORATORY | | | | + + + + + NM Hepatobiliary (11/29/2013 1:03 PM PDT) + + | Specimen | + + | | + + + + + | Narrative | Performed At | + + + | NUCLEAR MEDICINE HEPATIC BILIARY SCAN: 11/29/2013 CLINICAL | [facility] | | HISTORY: Right upper quadrant pain. Biliary sludge on ultrasound, with | LAB | | no stones identified. FINDINGS: Patient is given 6.0 mCi of | | | technetium labeled Choletec followed by scanning over the abdomen for | | | 1 hour. Initial images show good clearance from the background and a | | | grossly normal hepatic outline suggesting normal hepatocellular | | | function. Common bile duct is first seen at 12 minutes and small | | | bowel activity is first seen at 18 minutes. This would be within | | | normal range. Over 60 minutes of scanning small bowel activity | | | steadily increases. No gallbladder is identified at any time. Small | | | amount tracer extends proximally into the left upper quadrant, | | | suggesting gastric reflux of bile. No other ectopic tracer | | | accumulation. Because of nonvisualization of the gallbladder and | | | patient's nothing by mouth status, no fatty meal challenge was given. | | | IMPRESSION - 1. Nonfilling of the gallbladder over 60 minutes. | | | This can be seen with active cholecystitis. No common bile duct | | | obstruction. 2. Gastric reflux of bile. Dictated and Signed | | | by: Osmin Loredo MD Electronically signed: 11/29/2013 2:19 PM | | + + + + + | Procedure Note | + + | Raymundo Kaminski Results In - 11/29/2013 2:22 PM PDT NUCLEAR MEDICINE HEPATIC BILIARY SCAN: | | 11/29/2013CLINICAL HISTORY: Right upper quadrant pain. Biliary sludge on ultrasound, | | withno stones identified.FINDINGS: Patient is given 6.0 mCi of technetium labeled | | Choletec followed byscanning over the abdomen for 1 hour. Initial images show good | | clearance fromthe background and a grossly normal hepatic outline suggesting | | normalhepatocellular function. Common bile duct is first seen at 12 minutes and | | smallbowel activity is first seen at 18 minutes. This would be within normal range.Over | | 60 minutes of scanning small bowel activity steadily increases. Nogallbladder is | | identified at any time. Small amount tracer extends proximallyinto the left upper | | quadrant, suggesting gastric reflux of bile. No otherectopic tracer accumulation.Because | | of nonvisualization of the gallbladder and patient's nothing by mouthstatus, no fatty | | meal challenge was given.IMPRESSION -1. Nonfilling of the gallbladder over 60 minutes. | | This can be seen with activecholecystitis. No common bile duct obstruction.2. Gastric | | reflux of bile.Dictated and Signed by: Osmin Loredo MD Electronically signed: | | 11/29/2013 2:19 PM | | | |Because of nonvisualization of the gallbladder and patient's nothing by mouth | |status, no fatty meal challenge was given. | | | |IMPRESSION - | |1. Nonfilling of the gallbladder over 60 minutes. This can be seen with active | |cholecystitis. No common bile duct obstruction. | | | |2. Gastric reflux of bile. | | | |Dictated and Signed by: Osmin Loredo MD | | Electronically signed: 11/29/2013 2:19 PM | + + + +---------+ + + | Performing | Address | City/State/Zipcode | Phone Number | | Organization | | | | + +---------+ + + | [facility] | | | [phone] | + +---------+ + + | [facility] | | | [phone] | + +---------+ + + POC Glucose (11/29/2013 11:41 AM PDT) + +-------+ + + + | Component | Value | Ref Range | Performed | Pathologist | | | | | At | Signature | + +-------+ + + + | Glucose, | 96 | 79 - 150 mg/dL | [facility] | | | POC | | | [facility] | | | | | | MEDICAL | | | | | | CENTER - | | | | | | LABORATORY | | + +-------+ + + + + + | Specimen | + + | Blood | + + + + + + + | Performing | Address | City/State/Zipcode | Phone Number | | Organization | | | | + + + + + | [facility] | [address] | [place] | [phone] | | [facility] | | [address] | | | - LABORATORY | | | | + + + + + | [facility] | [address] | [place] | | | [facility] | | [address] | | | - LABORATORY | | | | + + + + + Comprehensive Metabolic Panel (11/29/2013 5:19 AM PDT) + + + + + + | Component | Value | Ref Range | Performed | Pathologist | | | | | At | Signature | + + + + + + | Na | 134 (L) | 136 - 149 | [facility] | | | | | mmol/L | [facility] | | | | | | MEDICAL | | | | | | CENTER - | | | | | | LABORATORY | | + + + + + + | K | 4.4 | 3.5 - 5.1 | [facility] | | | | | mmol/L | [facility] | | | | | | MEDICAL | | | | | | CENTER - | | | | | | LABORATORY | | + + + + + + | Cl | 102 | 98 - 109 mmol/L | [facility] | | | | | | [facility] | | | | | | MEDICAL | | | | | | CENTER - | | | | | | LABORATORY | | + + + + + + | CO2 | 21 (L) | 24 - 31 mmol/L | [facility] | | | | | | [facility] | | | | | | MEDICAL | | | | | | CENTER - | | | | | | LABORATORY | | + + + + + + | Anion Gap | 11 | 3 - 16 mmol/L | [facility] | | | | | | [facility] | | | | | | MEDICAL | | | | | | CENTER - | | | | | | LABORATORY | | + + + + + + | Glucose | 112 (H) | 70 - 109 mg/dL | [facility] | | | | | | [facility] | | | | | | MEDICAL | | | | | | CENTER - | | | | | | LABORATORY | | + + + + + + | BUN | 32 (H) | 7 - 18 mg/dL | [facility] | | | | | | [facility] | | | | | | MEDICAL | | | | | | CENTER - | | | | | | LABORATORY | | + + + + + + | Creatinine | 1.09 | 0.60 - 1.30 | [facility] | | | | | mg/dL | [facility] | | | | | | MEDICAL | | | | | | CENTER - | | | | | | LABORATORY | | + + + + + + | eGFR if not | >60Comment: GLOMERULAR | >=60 | [facility] | | | | FILTRATION | mL/min/1.73m2 | [facility] | | | [place] | RATE,ESTIMATED | | MEDICAL | | | | mL/min/1.12h0Orct than | | CENTER - | | | | 60 Chronic kidney | | LABORATORY | | | | disease,if found over a | | | | | | 3-month period.Less than | | | | | | 15 Kidney failureFor | | | | | | | | | | | | Americans,multiply the | | | | | | calculated GFR by 1.21. | | | | | | | | | | + + + + + + | Calcium | 8.7 | 8.3 - 10.5 | [facility] | | | | | mg/dL | [facility] | | | | | | MEDICAL | | | | | | CENTER - | | | | | | LABORATORY | | + + + + + + | Albumin | 2.1 (L) | 3.2 - 5.0 g/dL | [facility] | | | | | | [facility] | | | | | | [facility]ICAL | | | | | | CENTER - | | | | | | LABORATORY | | + + + + + + | Bilirubin | 0.6 | 0.1 - 1.5 mg/dL | [facility] | | | Total | | | [facility] | | | | | | MEDICAL | | | | | | CENTER - | | | | | | LABORATORY | | + + + + + + | Total | 5.7 (L) | 6.0 - 7.8 g/dL | [facility] | | | Protein | | | [facility] | | | | | | MEDICAL | | | | | | CENTER - | | | | | | LABORATORY | | + + + + + + | AST | 19 | 10 - 42 U/L | [facility] | | | | | | [facility] | | | | | | [facility] | | | | | | C[facility] - | | | | | | LABORATORY | | + + + + + + | ALT | 20 | 6 - 45 U/L | [facility] | | [facility] | [facility] | | [facility] | | | [facility] | | | | | | CENTER - | | | | | | LABORATORY | | + + + + + + | Alkaline | 101 | 40 - 110 U/L | [facility] | | | Phosphatase | | | [facility] | | | | | | MEDICAL | | | | | | CENTER - | | | | | | LABORATORY | | + + + + + + | Globulin | 3.6 | g/dL | [facility] | | | | | | [facility] | | | | | | [facility] | | | | | | CENTER - | | | | | | LABORATORY | | + + + + + + | Albumin/Ivon | 0.6 | | [facility] | | | bulin Ratio | | | [facility] | | | | | | [facility] | | | | | | CENTER - | | | | | | LABORATORY | | + + + + + + | BUN/Creatin | 29.4 | | [facility] | | | ine Ratio | | | [facility] | | | | | | MEDICAL | | | | | | CENTER - | | | | | | LABORATORY | | + + + + + + + + | Specimen | + + | Blood | + + + + + + + | Performing | Address | City/State/Zipcode | Phone Number | | Organization | | | | + + + + + | [facility] | [address] | [place], [place] | [phone] | | [facility] | | [id number] | | | - LABORATORY | | | | + + + + + | [facility] | [address] | [place], [place] | | | [facility] | | [id number] | | | - LABORATORY | | | | + + + + + CBC with Differential (11/29/2013 5:19 AM PDT) + + + + + + | Component | Value | Ref Range | Performed | Pathologist | | | | | At | Signature | + + + + + + | WBC | 10.9 | 4.0 - 11.0 K/uL | [facility] | | | | [facility] | [facility] | [facility] | | | | [facility] - | | | | | | LABORATORY | | + + + + + + | RBC | 4.24 (L) | 4.30 - 5.70 | [facility] | | | | | M/uL | [facility] | | | | | | [facility] | | | | | | C[facility] - | | | | | | LABORATORY | | + + + + + + | Hemoglobin | 13.9 | 13.5 - 18.0 | [facility] | | | | | g/dL | [facility] | | | | | | [facility] | | | | | | C[facility] - | | | | | | LABORATORY | | + + + + + + | Hematocrit | 41.2 | 40.0 - 51.0 % | [facility] | | | | | | [facility] | | | [facility] | [facility] | | | | | | [facility] - | | | | | | LABORATORY | | + + + + + + | MCV | 97.2 | 83.0 - 101.0 fL | [facility] | | | | | [facility] | | | [facility] | [facility] | | | | | | [facility] - | | | | | | LABORATORY | | + + + + + + | MCH | 32.8 | 28.0 - 35.0 pg | [facility] | | | | | | [facility] | | | [facility] | | [facility] | | | | | | [facility] - | | | | | | LABORATORY | | + + + + + + | MCHC | 33.7 | 32.0 - 36.0 | [facility] | | | | | g/dL | [facility] | | | | | | [facility] | | | | | | CENTER - | | | | | | LABORATORY | | + + + + + + | RDW-CV | 13.6 | <15.0 % | [facility] | | | | | | [facility] | | | | | | [facility] | | | | | | [facility] - | | | | | | LABORATORY | | + + + + + + | Platelet | 303 | 140 - 440 K/uL | [facility] | | | Count | | | [facility] | | | | | | [facility] | | | | | | [facility] - | | | | | | LABORATORY | | + + + + + + | MPV | 10.8 | fL | [facility] | | | | | | [facility] | | | | | | [facility] | | | | | | [facility] - | | | | | | LABORATORY | | + + + + + + | % | 82.4 (H) | 45.0 - 82.0 % | [facility] | | | Neutrophils | | | [facility] | | | | | | [facility] | | | | | | CENTER - | | | | | | LABORATORY | | + + + + + + | % | 9.2 (L) | 20.0 - 45.0 % | [facility] | | | Lymphocytes | | | [facility] | | | | | | [facility] | | | | | | CENTER - | | | | | | LABORATORY | | + + + + + + | % Monocytes | 7.4 | 4.0 - 12.0 % | [facility] | | | | | | [facility] | | | | | | [facility] | | | | | | [facility] - | | | | | | LABORATORY | | + + + + + + | % | 0.4 | 0.0 - 5.0 % | [facility] | | | Eosinophils | | | [facility] | | | | | | [facility] | | | | | | CENTER - | | | | | | LABORATORY | | + + + + + + | % Basophils | 0.6 | 0.0 - 1.0 % | [facility] | | | | | | [facility] | | | | | | [facility] | | | | | | C[facility] - | | | | | | LABORATORY | | + + + + + + | Absolute | 9.00 (H) | 1.80 - 8.50 | [facility] | | | Neutrophils | | K/uL | [facility] | | | | | | [facility] | | | | | | CENTER - | | | | | | LABORATORY | | + + + + + + | Absolute | 1.00 | 0.60 - 3.20 | [facility] | | | Lymphocytes | | K/uL | [facility] | | | | | | [facility]ICAL | | | | | | CENTER - | | | | | | LABORATORY | | + + + + + + | Absolute | 0.80 | 0.00 - 1.00 | [facility] | | | Monocytes | | K/uL | [facility] | | | | | | [facility] | | | | | | CENTER - | | | | | | LABORATORY | | + + + + + + | Absolute | 0.00 | 0.00 - 0.40 | [facility] | | | Eosinophils | | K/uL | [facility] | | | | | | [facility] | | | | | | CENTER - | | | | | | LABORATORY | | + + + + + + | Absolute | 0.10 | 0.00 - 0.10 | [facility] | | | Basophils | | K/uL | [facility] | | | | | | [facility] | | | | | | CENTER - | | | | | | LABORATORY | | + + + + + + + + | Specimen | + + | Blood | + + + + + + + | Performing | Address | City/[facility] | Phone Number | | Organization | | | | + + + + + | [facility] | [address] | [place], [place] | [phone] | | [facility] | | [address] | | | - LABORATORY | | | | + + + + + | [facility] | [address] | [place], [place] | | | [facility] | | [id number] [place] [address] | | | - LABORATORY | | | | + + + + + POC Glucose (11/28/2013 8:44 PM PDT) + +-------+ + + + | Component | Value | Ref Range | Performed | Pathologist | | | | | At | Signature | + +-------+ + + + | Glucose, | 130 | 79 - 150 mg/dL | [facility] | | | POC | | | [facility] | | | | | | [facility]ICAL | | | | | | CENTER - | | | | | | LABORATORY | | + +-------+ + + + + + | Specimen | + + | Blood | + + + + + + + | Performing | Address | City/State/Zipcode | Phone Number | | Organization | | | | + + + + + | [facility] | [address] | [place] | [phone] | | [facility] | | [address] | | | - LABORATORY | | | | + + + + + | [facility] | [address] | [place], [place] | | | [facility] | | [address] | | | - LABORATORY | | | | + + + + + XR Abdomen AP (11/28/2013 4:58 PM PDT) + + | Specimen | + + | | + + + + + | Narrative | Performed At | + + + | 1 VIEW ABDOMEN: 11/28/2013 4:58 PM CLINICAL HISTORY: nasogastric | [facility] | | tube placement confirmation COMPARISON: CT of this date | LAB | | FINDINGS: Nasogastric tube is present with tip in the stomach. | | | Multiple dilated loops of gas-filled small bowel with only a small | | | amount of colonic gas. Appearances may represent obstruction or | | | ileus. No free air. IMPRESSION - Satisfactory nasogastric tube | | | position. Multiple dilated gas-filled loops of small bowel compatible | | | with obstruction or ileus. Dictated and Signed by: Osmin Graham | | MD Facundo Electronically signed: 11/29/2013 10:57 AM | | + + + + + | Procedure Note | + + | Raymundo Kaminski Results In - 11/29/2013 11:00 AM PDT 1 VIEW ABDOMEN: 11/28/2013 4:58 PM | | | | CLINICAL HISTORY: nasogastric tube placement confirmation | | | | COMPARISON: CT of this date | | | | FINDINGS: Nasogastric tube is present with tip in the stomach. Multiple dilated | | loops of gas-filled small bowel with only a small amount of colonic gas. | | Appearances may represent obstruction or ileus. No free air. | | | | IMPRESSION - Satisfactory nasogastric tube position. Multiple dilated gas-filled | | loops of small bowel compatible with obstruction or ileus. | | | | Dictated and Signed by: Osmin Loredo MD | | Electronically signed: 11/29/2013 10:57 AM | + + + +---------+ + + | Performing | Address | City/State/Zipcode | Phone Number | | Organization | | | | + +---------+ + + | [facility] | | | [phone] | + +---------+ + + | [facility] | | | [phone] | + +---------+ + + US Abdomen Limited (11/28/2013 4:08 PM PDT) + + | Specimen | + + | | + + + + + | Narrative | Performed At | + + + | LIMITED RIGHT UPPER QUADRANT ULTRASOUND: 11/28/2013 3:30 PM | [facility] | | CLINICAL HISTORY: ABDOMINAL PAIN COMPARISON:None FINDINGS: | LAB | | Liver:The liver is of normal echogenicity and echo architecture. There | | | is no intrahepatic biliary or venous dilation. No focal hepatic | | | abnormalities are present. Gallbladder:Gallbladder shows a mildly | | | thickened wall at 3.8 mm. No pericholecystic fluid. Nonmobile | | | echogenic focus along the gallbladder wall, compatible with polyp. | | | Small amount of layering biliary sludge. No definite stones. Right | | | upper quadrant tenderness to transducer pressure. CBD: Common bile | | | duct measures 6.3 mm Pancreas:Not well seen. Right kidney:Right | | | kidney is also included on this examination. It shows normal | | | echogenicity and echo architecture. There is no hydronephrosis. | | | Maximum dimension is 13.0 cm. Vasculature:Blood flow in the inferior | | | vena cava and hepatic veins is normal. Portal venous blood flow is | | | normal in pattern and direction. IMPRESSION -Small amount of | | | sludge in the gallbladder without defined stone. Gallbladder wall | | | thickening and possible polyp. Dictated and Signed by: Osmin Graham | | MD Facundo Electronically signed: 11/29/2013 8:03 AM | | + + + + + | Procedure Note | + + | Gordy, Rad Results In - 11/29/2013 8:06 AM PDT LIMITED RIGHT UPPER QUADRANT | | ULTRASOUND: 11/28/2013 3:30 PMCLINICAL HISTORY: ABDOMINAL | | PAINCOMPARISON:NoneFINDINGS:Liver:The liver is of normal echogenicity and echo | | architecture. There is nointrahepatic biliary or venous dilation. No focal hepatic | | abnormalities arepresent.Gallbladder:Gallbladder shows a mildly thickened wall at 3.8 | | mm. Nopericholecystic fluid. Nonmobile echogenic focus along the gallbladder | | wall,compatible with polyp. Small amount of layering biliary sludge. No definitestones. | | Right upper quadrant tenderness to transducer pressure.CBD: Common bile duct measures | | 6.3 mmPancreas:Not well seen.Right kidney:Right kidney is also included on this | | examination. It shows normalechogenicity and echo architecture. There is no | | hydronephrosis. Maximumdimension is 13.0 cm.Vasculature:Blood flow in the inferior vena | | cava and hepatic veins is normal.Portal venous blood flow is normal in pattern and | | direction.IMPRESSION -Small amount of sludge in the gallbladder without defined | | stone.Gallbladder wall thickening and possible polyp.Dictated and Signed by: Osmin | | MD Facundo Electronically signed: 11/29/2013 8:03 AM | |Pancreas:Not well seen. | |Right kidney:Right kidney is also included on this examination. It shows normal | |echogenicity and echo architecture. There is no hydronephrosis. Maximum | |dimension is 13.0 cm. | |Vasculature:Blood flow in the inferior vena cava and hepatic veins is normal. | |Portal venous blood flow is normal in pattern and direction. | | | |IMPRESSION -Small amount of sludge in the gallbladder without defined stone. | |Gallbladder wall thickening and possible polyp. | | | |Dictated and Signed by: Osmin Loredo MD | | Electronically signed: 11/29/2013 8:03 AM | + + + +---------+ + + | Performing | Address | City/State/Zipcode | Phone Number | | Organization | | | | + +---------+ + + | [facility] | | | [phone] | + +---------+ + + | [facility] | | | [phone] | + +---------+ + + CT Abdomen Pelvis w Contrast (11/28/2013 2:23 PM PDT) + + | Specimen | + + | | + + + + + | Narrative | Performed At | + + + | ENHANCED CT ABDOMEN AND PELVIS 11/28/2013 2:12 PM CLINICAL | [facility] | | HISTORY: ABDOMINAL PAIN COMPARISON: None available | LAB | | TECHNIQUE: Axial images are performed through the abdomen and pelvis | | | following the uneventful intravenous administration of 100 mL | | | Omnipaque 350 contrast. Coronal and sagittal reformations are | | | also performed. ABDOMEN FINDINGS: Mild dependent density and | | | bandlike opacities in the imaged lung bases favor atelectasis. | | | Small heavily calcified granulomata are present in the right lung | | | base. Imaged mediastinum is unremarkable. There is generalized | | | hypoattenuation of the liver, consistent with fatty infiltration. At | | | least mild, generalized gallbladder wall thickening is suggested. | | | No calcified gallstone or biliary ductal dilation is evident. The | | | spleen, pancreas, and adrenal glands are unremarkable. Numerous | | | tiny calcifications are present along the margins of the renal | | | sinuses, many if not all of which appear vascular in origin. | | | Numerous tiny low-attenuation renal cysts are visible. There is no | | | hydronephrosis. Moderately dilated, gas and fluid filled segments | | | of small bowel are present throughout the abdomen. A focal | | | transition point is not identified, although the distal ileum, which | | | contains feculent appearing material, is smaller in caliber relative | | | to the dilated segments. More normal caliber segments of proximal | | | jejunum are visible also. The stomach and duodenum are mostly | | | decompressed, containing a small volume of low attenuation fluid. | | | The right colon contains gas and a small to moderate volume of | | | stool. The cecum is positioned in the anterior right mid abdomen. | | | Normal caliber appendix is visible in the right mid to lower | | | abdomen. The left colon is decompressed. Minimal low-attenuation | | | free fluid is present in the lower bowel mesentery. No bowel wall | | | thickening, free air, pneumatosis, organized fluid, pathologic lymph | | | node enlargement or hernia is evident. There is extensive calcified | | | and noncalcified plaque within the aortoiliac vessels. Heavily | | | calcified stenoses of the proximal left common iliac artery and | | | bilateral proximal superficial femoral arteries is suggested. | | | Multilevel lumbar degenerative disc disease and spondylosis are | | | present, with variable multifactorial central canal and | | | neuroforaminal stenosis. There is bilateral spondylolysis involving | | | the lowest lumbar type vertebra, with anterolisthesis and severe | | | neuroforaminal stenosis at the lumbosacral junction. PELVIS | | | FINDINGS: The prostate is mild to moderately enlarged and contains | | | central calcifications. Curvilinear calcifications are also present | | | in the seminal vesicles. The bladder is unremarkable, aside from | | | the presence of a thin caliber urachal remnant extending toward the | | | umbilicus. Tiny fat-containing bilateral inguinal hernias are | | | suggested. No free air or pathologic lymph node enlargement is | | | evident. Asymmetric atrophy of the right gluteal musculature is | | | noted. Bones and soft tissues are otherwise unremarkable. | | | IMPRESSION - 1. MODERATELY DILATED, GAS AND FLUID FILLED | | | SEGMENTS OF SMALL BOWEL THROUGHOUT MUCH OF THE ABDOMEN WITHOUT A | | | DISCRETE TRANSITION POINT TO FAVOR THE PRESENCE OF HIGH-GRADE | | | OBSTRUCTION. THE TERMINAL ILEUM CONTAINS FECULENT APPEARING MATERIAL | | | AND IS SMALLER IN CALIBER THAN THE DILATED SEGMENTS, HOWEVER NO | | | BOWEL WALL THICKENING, PNEUMATOSIS OR OTHER SUSPICIOUS FINDING IS | | | EVIDENT. A NORMAL CALIBER APPENDIX IS PRESENT. THERE IS NO | | | EVIDENCE OF PERFORATION OR ABSCESS. 2. NON-SPECIFIC GENERALIZED | | | GALLBLADDER WALL THICKENING WITHOUT VISIBLE CALCIFIED GALLSTONE OR | | | BILIARY DUCTAL DILATION. CLINICAL AND LABORATORY CORRELATION | | | ADVISED, ALONG WITH CONSIDERATION FOR FOLLOW-UP SONOGRAPHY. 3. | | | GENERALIZED HYPOATTENUATION OF THE LIVER, CONSISTENT WITH FATTY | | | INFILTRATION. 4. TINY FAT-CONTAINING INGUINAL HERNIAS. 5. | | | ATHEROSCLEROSIS WITH PROBABLE FLOW-LIMITING STENOSES INVOLVING THE | | | LEFT COMMON ILIAC ARTERY AND PROXIMAL SUPERFICIAL FEMORAL ARTERIES. | | | 6. 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 | | | Images were provided for interpretation on November 28, 2013 at 1440 hours. | | | Results were finalized at 1455 hours. Dictated and Signed by: | | | Musa Davis MD Electronically signed: 11/28/2013 2:58 PM | | + + + + + | Procedure Note | + + | Gordy, Rad Results In - 11/28/2013 3:[address] ABDOMEN AND PELVIS | | 11/28/2013 2:12 PM CLINICAL HISTORY: ABDOMINAL PAIN COMPARISON: None available | | TECHNIQUE: Axial images are performed through the abdomen and pelvis followingthe | | uneventful intravenous administration of 100 mL Omnipaque 350 contrast. Coronal and | | sagittal reformations are also performed. ABDOMEN FINDINGS: Mild dependent density | | and bandlike opacities in the imagedlung bases favor atelectasis. Small heavily | | calcified granulomata are presentin the right lung base. Imaged mediastinum is | | unremarkable. There isgeneralized hypoattenuation of the liver, consistent with fatty | | infiltration. At least mild, generalized gallbladder wall thickening is suggested. | | Nocalcified gallstone or biliary ductal dilation is evident. The spleen,pancreas, and | | adrenal glands are unremarkable. Numerous tiny calcifications arepresent along the | | margins of the renal sinuses, many if not all of which appearvascular in origin. | | Numerous tiny low-attenuation renal cysts are visible. There is no | | hydronephrosis.Moderately dilated, gas and fluid filled segments of small bowel are | | presentthroughout the abdomen. A focal transition point is not identified, althoughthe | | distal ileum, which contains feculent appearing material, is smaller incaliber relative | | to the dilated segments. More normal caliber segments ofproximal jejunum are visible | | also. The stomach and duodenum are mostlydecompressed, containing a small volume of low | | attenuation fluid. The rightcolon contains gas and a small to moderate volume of | | stool. The cecum ispositioned in the anterior right mid abdomen. Normal caliber | | appendix isvisible in the right mid to lower abdomen. The left colon is decompressed. | | Minimal low-attenuation free fluid is present in the lower bowel mesentery. Nobowel | | wall thickening, free air, pneumatosis, organized fluid, pathologic lymphnode | | enlargement or hernia is evident. There is extensive calcified andnoncalcified plaque | | within the aortoiliac vessels. Heavily calcified stenosesof the proximal left common | | iliac artery and bilateral proximal superficialfemoral arteries is suggested. | | Multilevel lumbar degenerative disc disease andspondylosis are present, with variable | | multifactorial central canal andneuroforaminal stenosis. There is bilateral | | spondylolysis involving the lowestlumbar type vertebra, with anterolisthesis and severe | | neuroforaminal stenosis atthe lumbosacral junction. PELVIS FINDINGS: The prostate is | | mild to moderately enlarged and containscentral calcifications. Curvilinear | | calcifications are also present in theseminal vesicles. The bladder is unremarkable, | | aside from the presence of athin caliber urachal remnant extending toward the umbilicus. | | Tinyfat-containing bilateral inguinal hernias are suggested. No free air orpathologic | | lymph node enlargement is evident. Asymmetric atrophy of the rightgluteal musculature | | is noted. Bones and soft tissues are otherwiseunremarkable. IMPRESSION - 1. | | MODERATELY DILATED, GAS AND FLUID FILLED SEGMENTS OF SMALL BOWEL THROUGHOUTMUCH OF THE | | ABDOMEN WITHOUT A DISCRETE TRANSITION POINT TO FAVOR THE PRESENCE OFHIGH-GRADE | | OBSTRUCTION. THE TERMINAL ILEUM CONTAINS FECULENT APPEARING MATERIALAND IS SMALLER IN | | CALIBER THAN THE DILATED SEGMENTS, HOWEVER NO BOWEL WALLTHICKENING, PNEUMATOSIS OR OTHER | | SUSPICIOUS FINDING IS EVIDENT. A NORMALCALIBER APPENDIX IS PRESENT. THERE IS NO | | EVIDENCE OF PERFORATION OR ABSCESS.2. NON-SPECIFIC GENERALIZED GALLBLADDER WALL | | THICKENING WITHOUT VISIBLECALCIFIED GALLSTONE OR BILIARY DUCTAL DILATION. CLINICAL AND | | LABORATORYCORRELATION ADVISED, ALONG WITH CONSIDERATION FOR FOLLOW-UP SONOGRAPHY.3. | | GENERALIZED HYPOATTENUATION OF THE LIVER, CONSISTENT WITH FATTYINFILTRATION.4. TINY | | FAT-CONTAINING INGUINAL HERNIAS.5. ATHEROSCLEROSIS WITH PROBABLE FLOW-LIMITING STENOSES | | INVOLVING THE LEFTCOMMON ILIAC ARTERY AND PROXIMAL SUPERFICIAL FEMORAL ARTERIES.6. | | LUMBAR DEGENERATIVE DISC DISEASE AND SPONDYLOSIS WITH LOWER LUMBARSPONDYLOLYSIS, | | ANTEROLISTHESIS AND MULTILEVEL STENOSIS.Images were provided for interpretation on November | | 2013 at 1440 hours. Resultswere finalized at 1455 hours.Dictated and Signed by: Musa | | MD Ryan Electronically signed: 11/28/2013 2:58 PM | |1. MODERATELY DILATED, GAS AND FLUID FILLED SEGMENTS OF SMALL BOWEL THROUGHOUT | |MUCH OF THE ABDOMEN WITHOUT A DISCRETE TRANSITION POINT TO FAVOR THE PRESENCE OF | |HIGH-GRADE OBSTRUCTION. THE TERMINAL ILEUM CONTAINS FECULENT APPEARING MATERIAL | |AND IS SMALLER IN CALIBER THAN THE DILATED SEGMENTS, HOWEVER NO BOWEL WALL | |THICKENING, PNEUMATOSIS OR OTHER SUSPICIOUS FINDING IS EVIDENT. A NORMAL | |CALIBER APPENDIX IS PRESENT. THERE IS NO EVIDENCE OF PERFORATION OR ABSCESS. | | | |2. NON-SPECIFIC GENERALIZED GALLBLADDER WALL THICKENING WITHOUT VISIBLE | |CALCIFIED GALLSTONE OR BILIARY DUCTAL DILATION. CLINICAL AND LABORATORY | |CORRELATION ADVISED, ALONG WITH CONSIDERATION FOR FOLLOW-UP SONOGRAPHY. | | | |3. GENERALIZED HYPOATTENUATION OF THE LIVER, CONSISTENT WITH FATTY | |INFILTRATION. | | | |4. TINY FAT-CONTAINING INGUINAL HERNIAS. | | | |5. ATHEROSCLEROSIS WITH PROBABLE FLOW-LIMITING STENOSES INVOLVING THE LEFT | |COMMON ILIAC ARTERY AND PROXIMAL SUPERFICIAL FEMORAL ARTERIES. | | | |6. LUMBAR DEGENERATIVE DISC DISEASE AND SPONDYLOSIS WITH LOWER LUMBAR | |SPONDYLOLYSIS, ANTEROLISTHESIS AND MULTILEVEL STENOSIS. | | | |Images were provided for interpretation on November 28, 2013 at 1440 hours. Results | |were finalized at 1455 hours. | | | |Dictated and Signed by: Musa Davis MD | | Electronically signed: 11/28/2013 2:58 PM | + + + +---------+ + + | Performing | Address | City/State/Zipcode | Phone Number | | Organization | | | | + +---------+ + + | [facility] | | | [phone] | + +---------+ + + | [facility] | | | [phone] | + +---------+ + + Lipase (11/28/2013 1:29 PM PDT) + +-------+ + + + | Component | Value | Ref Range | Performed | Pathologist | | | | | At | Signature | + +-------+ + + + | Lipase | 17 | 0 - 60 U/L | [facility] | | | [facility] | [facility] | | | | | | [facility] - | | | | | | LABORATORY | | + +-------+ + + + + + | Specimen | + + | Blood | + + + + + + + | Performing | Address | City/State/Zipcode | Phone Number | | Organization | | | | + + + + + | [facility] | [address] | [place] | [phone] | | [facility] | | [address] | | | - LABORATORY | | | | + + + + + | [facility] | [address] | [place] | | | [facility] | | [address], [facility] | | | - LABORATORY | | | | + + + + + Comprehensive Metabolic Panel (11/28/2013 1:29 PM PDT) + + + + + + | Component | Value | Ref Range | Performed | Pathologist | | | | | At | Signature | + + + + + + | Na | 128 (L) | 136 - 149 | [facility] | | | | | mmol/L | [facility] | | | | | | [facility] | | | | | | CENTER - | | | | | | LABORATORY | | + + + + + + | K | 5.3 (H) | 3.5 - 5.1 | [facility] | | | | | mmol/L | [facility] | | | | | | [facility] | | | | | | CENTER - | | | | | | LABORATORY | | + + + + + + | Cl | 96 (L) | 98 - 109 mmol/L | [facility] | | | | | | [facility] | | | | | | [facility] | | | | | | CENTER - | | | | | | LABORATORY | | + + + + + + | CO2 | 19 (L) | 24 - 31 mmol/L | [facility] | | | | | | [facility] | | | | | | [facility] | | | | | | CENTER - | | | | | | LABORATORY | | + + + + + + | Anion Gap | 13 | 3 - 16 mmol/L | [facility] | | | | | | [facility] | | | | | | [facility] | | | | | | CENTER - | | | | | | LABORATORY | | + + + + + + | Glucose | 153 (H) | 70 - 109 mg/dL | [facility] | | | | | [facility] | | | | | | [facility] | | | | | | CENTER - | | | | | | LABORATORY | | + + + + + + | BUN | 38 (H) | 7 - 18 mg/dL | [facility] | | | | | | [facility] | | | | | | [facility] | | | | | | CENTER - | | | | | | LABORATORY | | + + + + + + | Creatinine | 1.13 | 0.60 - 1.30 | [facility] | | | | | mg/dL | [facility] | | | | | | [facility]ICAL | | | | | | CENTER - | | | | | | LABORATORY | | + + + + + + | eGFR if not | >60Comment: GLOMERULAR | >=60 | [facility] | | | | FILTRATION | mL/min/1.73m2 | [facility] | | | [place] | RATE,ESTIMATED | | MEDICAL | | | | mL/min/1.11z3Lazg than | | CENTER - | | | | 60 Chronic kidney | | LABORATORY | | | | disease,if found over a | | | | | | 3-month period.Less than | | | | | | 15 Kidney failureFor | | | | | | | | | | | | Americans,multiply the | | | | | | calculated GFR by 1.21. | | | | | | | | | | + + + + + + | Calcium | 9.7 | 8.3 - 10.5 | [facility] | | | | | mg/dL | [facility] | | | | | | MEDICAL | | | | | | CENTER - | | | | | | LABORATORY | | + + + + + + | Albumin | 2.5 (L) | 3.2 - 5.0 g/dL | [facility] | | | | | | [facility] | | | | | | MEDICAL | | | | | | CENTER - | | | | | | LABORATORY | | + + + + + + | Bilirubin | 0.9 | 0.1 - 1.5 mg/dL | [facility] | | | Total | | | [facility] | | | | | | [facility]ICAL | | | | | | CENTER - | | | | | | LABORATORY | | + + + + + + | Total | 6.7 | 6.0 - 7.8 g/dL | [facility] | | | Protein | | | [facility] | | | | | | MEDICAL | | | | | | CENTER - | | | | | | LABORATORY | | + + + + + + | AST | 25 | 10 - 42 U/L | [facility] | | | | | | [facility] | | | | | | [facility]ICAL | | | | | | CENTER - | | | | | | LABORATORY | | + + + + + + | ALT | 23 | 6 - 45 U/L | [facility] | | | | | | [facility] | | | | | | [facility]ICAL | | | | | | CENTER - | | | | | | LABORATORY | | + + + + + + | Alkaline | 118 (H) | 40 - 110 U/L | [facility] | | | Phosphatase | | | [facility] | | [facility] | [facility] - | | | | | | LABORATORY | | + + + + + + | Globulin | 4.2 | g/dL | [facility] | | | | | | [facility] | | [facility] | [facility] | | | [facility] - | | | | | | LAB[facility]ATORY | | + + + + + + | Albumin/Ivon | 0.6 | | [facility] | | | bulin Ratio | | | [facility] | [facility] - | | | | | | LABORATORY | | + + + + + + | BUN/Creatin | 33.6 | | [facility] | | | ine Ratio | | | [facility] | [facility] | [facility] | | | [facility] - | | | | | | LABORATORY | | + + + + + + + + | Specimen | + + | Blood | + + + + + + + | Performing | Address | City/State/Zipcode | Phone Number | | Organization | | | | + + + + + | [facility] | [address] | [place] | [phone] | | [facility] | | [address] | | | - LABORATORY | | | | + + + + + | [facility] | [address] | [place] | | | [facility] | | [phone], [facility] | | | - LABORATORY | | | | + + + + + CBC no Differential (11/28/2013 1:29 PM PDT) + + + + + + | Component | Value | Ref Range | Performed | Pathologist | | | | | At | Signature | + + + + + + | WBC | 15.7 (H) | 4.0 - 11.0 K/uL | [facility] | | | | | [facility] | | | | | | [facility] | | | | | [facility] - | | | | | | LABORATORY | | + + + + + + | RBC | 4.72 | 4.30 - 5.70 | [facility] | | | | | M/uL | [facility] | | | | | | [facility] | | | | | | CENTER - | | | | | | LABORATORY | | + + + + + + | Hemoglobin | 15.3 | 13.5 - 18.0 | [facility] | | | | | g/dL | [facility] | | | | | | [facility] | | | | | | C[facility] - | | | | | | LABORATORY | | + + + + + + | Hematocrit | 45.7 | 40.0 - 51.0 % | [facility] | | | | | | [facility] | | | | | | [facility] | | | | | | [facility] - | | | | | | LABORATORY | | + + + + + + | MCV | 96.9 | 83.0 - 101.0 fL | [facility] | | | | | | [facility] | | | | [facility] | [facility] | | | | | | [facility] - | | | | | | LABORATORY | | + + + + + + | MCH | 32.5 | 28.0 - 35.0 pg | [facility] | | | | | | [facility] | | | | | | [facility] | | | | | | [facility] - | | | | | | LABORATORY | | + + + + + + | MCHC | 33.5 | 32.0 - 36.0 | [facility] | | | | | g/dL | [facility] | | | | | | [facility] | | | | | | CENTER - | | | | | | LABORATORY | | + + + + + + | RDW-CV | 13.1 | <15.0 % | [facility] | | | | | | [facility] | | | | | | [facility] | | | | | | C[facility] - | | | | | | LABORATORY | | + + + + + + | Platelet | 359 | 140 - 440 K/uL | [facility] | | | Count | | | [facility] | | | | | | [facility] | | | | | | CENTER - | | | | | | LABORATORY | | + + + + + + | MPV | 10.3 | fL | [facility] | | | | | | [facility] | | | | | | [facility] | | | | | | CENTER - | | | | | | LABORATORY | | + + + + + + + + | Specimen | + + | Blood | + + + + + + + | Performing | Address | City/[facility]/Zipcode | Phone Number | | Organization | | | | + + + + + | [facility] | [address] | [place], [place] | [phone] | | [facility] | | [address] | | | - LABORATORY | | | | + + + + + | [facility] | [address] | [place], [place] | | | [facility] | | [phone], [facility] | | | - LABORATORY | | | | + + + + + documented in this encounter Visit Diagnoses + + | Diagnosis | + + | Ileus (HCC) - Primary Paralytic ileus | + + | Diabetes mellitus ([facility]) Type II or unspecified type diabetes mellitus without mention | | of complication, not stated as uncontrolled | + + | Hyponatremia Hyposmolality and/or hyponatremia | + + documented in this encounter Administered Medications + +--------+ +--------+------+------+ | Medication Order | MAR | Action | Dose | Rate | Site | | | Action | Date | | | | + +--------+ +--------+------+------+ | albuterol 2.5 mg/3 mL nebulizer | Given | 12/01/19 | 2.5 mg | | | | solution 2.5 mg 2.5 mg, | | 14 11:46 | | | | | Nebulization, ONCE PRN, Wheezing, | | AM PDT | | | | | Starting Nelida 11/30/13 at 1105, | | | | | | | For 1 dose, Notify anesthesia if | | | | | | | patient is wheezing and does not | | | | | | | have a history of asthma or COPD | | | | | | | or current smoking., | | | | | | | Recovery/Phase I | | | | | | + +--------+ +--------+------+------+ +---+---+ | | | +---+---+ + +-------+ +-------+---+---+ | aspirin chewable tablet 81 mg | Given | 12/04/19 | 81 mg | | | | 81 mg, Oral, DAILY, First dose on | | 14 8:52 | | | | | 11/28/13 at 1930 | | AM PDT | | | | + +-------+ +-------+---+---+ +-------+ +-------+---+---+ | Given | 12/03/19 | 81 mg | | | | | 14 9:38 | | | | | | AM PDT | | | | +-------+ +-------+---+---+ | Given | 12/02/19 | 81 mg | | | | | 14 8:15 | | | | | | AM PDT | | | | +-------+ +-------+---+---+ +---+---+ | | | +---+---+ + +-------+ +-------+---+---+ | bisacodyl (DULCOLAX) | Given | 11/30/19 | 10 mg | | | | suppository 10 mg 10 mg, Rectal, | | 14 8:27 | | | | | DAILY PRN, Constipation, | | AM PDT | | | | | Starting 11/28/13 at 1905 | | | | | | + +-------+ +-------+---+---+ +-------+ +-------+---+---+ | Given | 11/29/19 | 10 mg | | | | | 14 7:40 | | | | | | PM PDT | | | | +-------+ +-------+---+---+ +---+---+ | | | +---+---+ + +---------+ +---+ +---+ | dextrose 5% and sodium chloride | New Bag | 12/04/19 | | 75 mL/hr | | | 0.45% with KCl 40 mEq/L (D5 /2 | | 14 5:04 | | | | | NS + KCL 40) infusion at 75 | | AM PDT | | | | | mL/hr, Intravenous, CONTINUOUS, | | | | | | | Starting 12/02/13 at 1515 | | | | | | + +---------+ +---+ +---+ +---------+ +---+ +---+ | New Bag | 12/03/19 | | 75 mL/hr | | | | 14 4:25 | | | | | | PM PDT | | | | +---------+ +---+ +---+ +---+---+ | | | +---+---+ + +-------+ +--------+---+---+ | docusate calcium (SURFAK) | Given | 12/04/19 | 240 mg | | | | capsule 240 mg 240 mg, Oral, 2 | | 14 8:52 | | | | | TIMES DAILY, First dose on Tue | | AM PDT | | | | | 11/28/13 at 2100 | | | | | | + +-------+ +--------+---+---+ +-------+ +--------+---+---+ | Given | 12/03/19 | 240 mg | | | | | 14 9:17 | | | | | | PM PDT | | | | +-------+ +--------+---+---+ | Given | 12/03/19 | 240 mg | | | | | 14 9:38 | | | | | | AM PDT | | | | +-------+ +--------+---+---+ +---+---+ | | | +---+---+ + +-------+ +-------+---+ + | enoxaparin (LOVENOX) 40 mg/0.4 | Given | 12/03/19 | 40 mg | | Abdomen- | | mL injection 40 mg 40 mg, | | 14 9:16 | | | RUQ | | Subcutaneous, EVERY 24 HOURS | | PM PDT | | | | | (Daily), First dose on Wed11/28/13 | | | | | | | at 2100 | | | | | | + +-------+ +-------+---+ + +-------+ +-------+---+ + | Given | 12/02/19 | 40 mg | | Abdomen- | | | 14 8:36 | | | LUQ | | | PM PDT | | | | +-------+ +-------+---+ + | Given | 12/01/19 | 40 mg | | Abdomen- | | | 14 8:02 | | | LLQ | | | PM PDT | | | | +-------+ +-------+---+ + +---+---+ | | | +---+---+ + +-------+ +--------+---+---+ | fentaNYL injection 25-50 mcg | Given | 12/01/19 | 50 mcg | | | | 25-50 mcg, Intravenous, EVERY 5 | | 14 1:06 | | | | | MIN PRN, Pain, Starting [place] | | PM PDT | | | | | 11/30/13 at 1105, Maximum total | | | | | | | dose 250 mcg. PACU IV Narcotic | | | | | | | Priority: Only use fentanyl for | | | | | | | immediate post-op pain (one dose) | | | | | | | or breakthrough pain when any | | | | | | | other IV narcotics ordered have | | | | | | | been ineffective (if ordered). | | | | | | | If both morphine and | | | | | | | hydromorphone are ordered, use | | | | | | | morphine first, and use | | | | | | | hydromporphone if morphine | | | | | | | ineffective., Recovery/Phase I | | | | | | + +-------+ +--------+---+---+ + + +--------+---+---+ | Given by Other | 12/01/19 | 50 mcg | | | | | 14 12:38 | | | | | | PM PDT | | | | + + +--------+---+---+ | Given | 12/01/19 | 50 mcg | | | | | 14 12:08 | | | | | | PM PDT | | | | + + +--------+---+---+ +---+---+ | | | +---+---+ + +-------+ +--------+---+---+ | gabapentin (NEURONTIN) capsule | Given | 12/04/19 | 600 mg | | | | 600 mg 600 mg, Oral, 3 TIMES | | 14 1:49 | | | | | DAILY, First dose on Wed11/28/13 | | PM PDT | | | | | at 2100 | | | | | | + +-------+ +--------+---+---+ +-------+ +--------+---+---+ | Given | 12/04/19 | 600 mg | | | | | 14 8:52 | | | | | | AM PDT | | | | +-------+ +--------+---+---+ | Given | 12/03/19 | 600 mg | | | | | 14 9:17 | | | | | | PM PDT | | | | +-------+ +--------+---+---+ +---+---+ | | | +---+---+ + +-------+ + +---+---+ | HYDROcodone-acetaminophen | Given | 12/04/19 | 1 tablet | | | | (NORCO) 7.5-325 mg per tablet 1 | | 14 11:40 | | | | | tablet 1 tablet, Oral, EVERY 6 | | AM PDT | | | | | HOURS PRN, Pain, Starting Sun | | | | | | | 12/03/13 at 1033, Maximum | | | | | | | acetaminophen is 4000 mg/day from | | | | | | | all sources, | | | | | | + +-------+ + +---+---+ +---+---+ | | | +---+---+ + +-------+ +--------+---+---+ | HYDROmorphone (DILAUDID) | Given | 12/01/19 | 0.5 mg | | | | injection 0.2-0.5 mg 0.2-0.5 mg, | | 14 1:05 | | | | | Intravenous, EVERY 5 MIN PRN, | | PM PDT | | | | | Pain, Starting [facility] 11/30/13 at | | | | | | | 1105, Maximum total dose 4 mg. | | | | | | | PACU IV Narcotic Priority: Only | | | | | | | use fentanyl for immediate | | | | | | | post-op pain (one dose) or | | | | | | | breakthrough pain when any other | | | | | | | IV narcotics ordered have been | | | | | | | ineffective (if ordered). If | | | | | | | both morphine and hydromorphone | | | | | | | are ordered, use morphine first, | | | | | | | and use hydromporphone if | | | | | | | morphine ineffective., | | | | | | | Recovery/Phase I | | | | | | + +-------+ +--------+---+---+ + + +--------+---+---+ | Given by Other | 12/01/19 | 0.5 mg | | | | | 14 12:37 | | | | | | PM PDT | | | | + + +--------+---+---+ | Given | 12/01/19 | 0.5 mg | | | | | 14 12:07 | | | | | | PM PDT | | | | + + +--------+---+---+ +---+---+ | | | +---+---+ + +-------+ +------+---+---+ | HYDROmorphone (DILAUDID) | Given | 12/04/19 | 1 mg | | | | injection 0.25-1.5 mg 0.25-1.5 | | 14 1:19 | | | | | mg, Intravenous, EVERY 1 HOUR | | PM PDT | | | | | PRN, Pain, Starting [place]el[facility] 11/30/13 | | | | | | | at 1419, Slow IV push, not faster | | | | | | | than 0.25mg/minute. If | | | | | | | ineffective or not tolerated and | | | | | | | unable to take oral opioid - | | | | | | | contact MD, Post-op/Phase II | | | | | | + +-------+ +------+---+---+ +-------+ +------+---+---+ | Given | 12/04/19 | 1 mg | | | | | 14 8:49 | | | | | | AM PDT | | | | +-------+ +------+---+---+ | Given | 12/04/19 | 1 mg | | | | | 14 4:15 | | | | | | AM PDT | | | | +-------+ +------+---+---+ +---+---+ | | | +---+---+ + +-------+ +--------+---+---+ | HYDROmorphone (DILAUDID) | Given | 12/01/19 | 0.8 mg | | | | injection 0.4-0.8 mg 0.4-0.8 mg, | | 14 7:01 | | | | | Intravenous, EVERY 2 HOURS PRN, | | AM PDT | | | | | Pain, Starting Wed11/28/13 at | | | | | | | 1905, Use IV morphine first if | | | | | | | ordered. Slow IV push, not faster | | | | | | | than 0.25 mg/minute. If | | | | | | | ineffective or not tolerated and | | | | | | | unable to take oral opioid - | | | | | | | contact MD., | | | | | | + +-------+ +--------+---+---+ +-------+ +--------+---+---+ | Given | 12/01/19 | 0.8 mg | | | | | 14 5:40 | | | | | | AM PDT | | | | +-------+ +--------+---+---+ | Given | 12/01/19 | 0.8 mg | | | | | 14 3:38 | | | | | | AM PDT | | | | +-------+ +--------+---+---+ +---+---+ | | | +---+---+ + +-------+ +--------+---+---+ | HYDROmorphone (DILAUDID) | Given | 11/29/19 | 0.5 mg | | | | injection 0.5 mg 0.5 mg, | | 14 3:05 | | | | | Intravenous, EVERY 15 MIN PRN, | | PM PDT | | | | | Pain, Starting 11/28/13 at | | | | | | | 1319, For 4 doses | | | | | | + +-------+ +--------+---+---+ +------+ +--------+---+---+ | Push | 11/29/19 | 0.5 mg | | | | | 14 2:34 | | | | | | PM PDT | | | | +------+ +--------+---+---+ | Push | 11/29/19 | 0.5 mg | | | | | 14 1:49 | | | | | | PM PDT | | | | +------+ +--------+---+---+ +---+---+ | | | +---+---+ + +-------+ +---------+---+---+ | iohexol (OMNIPAQUE 350) 350 | Given | 11/29/19 | 100 mLs | | | | mg/mL injection 100 mL 100 mL, | | 14 2:21 | | | | | Intravenous, ONCE PRN, Other, | | PM PDT | | | | | Starting [facility] 11/28/13 at 1420, For | | | | | | | 1 dose, Cat Scanner | | | | | | + +-------+ +---------+---+---+ +---+---+ | | | +---+---+ + + + +---+-------+---+ | lactated ringers (LR) infusion | Rate/Dos | 12/01/19 | | 100 | | | Intravenous, CONTINUOUS PRN, | e Change | 14 1:06 | | mL/hr | | | Starting [facility] 11/30/13 at 0908, | | PM PDT | | | | | Anesthesia Intra-op | | | | | | + + + +---+-------+---+ +---------+ +----+---+---+ | New Bag | 12/01/19 | mL | | | | | 14 9:05 | | | | | | AM PDT | | | | +---------+ +----+---+---+ +---+---+ | | | +---+---+ + +---------+ +---+-------+---+ | lactated ringers (LR) infusion | New Bag | 12/03/19 | | 100 | | | at 100 mL/hr, Intravenous, | | 14 9:44 | | mL/hr | | | CONTINUOUS, Starting Nelida 11/30/13 | | AM PDT | | | | | at 1445, Post-op/Phase II | | | | | | + +---------+ +---+-------+---+ +---------+ +---+-------+---+ | New Bag | 12/02/19 | | 100 | | | | 14 10:59 | | mL/hr | | | | PM PDT | | | | +---------+ +---+-------+---+ | New Bag | 12/02/19 | | 100 | | | | 14 11:16 | | mL/hr | | | | AM PDT | | | | +---------+ +---+-------+---+ +---+---+ | | | +---+---+ + +-------+ +--------+---+---+ | levofloxacin (LEVAQUIN) tablet | Given | 12/04/19 | 750 mg | | | | 750 mg 750 mg, Oral, ONCE, Sun | | 14 1:49 | | | | | 12/03/13 at 1315, For 1 dose, Give | | PM PDT | | | | | 2 hours before or 2 hours after | | | | | | | antacids, iron, or zinc., | | | | | | + +-------+ +--------+---+---+ +---+---+ | | | +---+---+ + +-------+ +-------+---+---+ | lisinopril (PRINIVIL, ZESTRIL) | Given | 12/04/19 | 20 mg | | | | tablet 20 mg 20 mg, Oral, DAILY, | | 14 8:52 | | | | | First dose on Wed11/28/13 at 1930 | | AM PDT | | | | + +-------+ +-------+---+---+ +-------+ +-------+---+---+ | Given | 12/03/19 | 20 mg | | | | | 14 9:38 | | | | | | AM PDT | | | | +-------+ +-------+---+---+ | Given | 12/02/19 | 20 mg | | | | | 14 8:15 | | | | | | AM PDT | | | | +-------+ +-------+---+---+ +---+---+ | | | +---+---+ + +-------+ +--------+---+---+ | magnesium hydroxide (MILK OF | Given | 12/03/19 | 30 mLs | | | | MAGNESIA) 400 mg/5 mL suspension | | 14 9:38 | | | | | 30 mL 30 mL, Oral, EVERY | | AM PDT | | | | | MORNING, First dose on Fri | | | | | | | 12/01/13 at 1915, For 2 days, | | | | | | | Shake well. Give first dose this | | | | | | | myesha., | | | | | | + +-------+ +--------+---+---+ +-------+ +--------+---+---+ | Given | 12/02/19 | 30 mLs | | | | | 14 8:35 | | | | | | PM PDT | | | | +-------+ +--------+---+---+ +---+---+ | | | +---+---+ + +-------+ +-------+---+---+ | metoprolol succinate | Given | 12/04/19 | 25 mg | | | | (TOPROL-XL) ER tablet 25 mg 25 | | 14 8:52 | | | | | mg, Oral, DAILY, First dose on | | AM PDT | | | | | 11/28/13 at 1930, Tablet may be | | | | | | | cut where scored but do not | | | | | | | crush., | | | | | | + +-------+ +-------+---+---+ +-------+ +-------+---+---+ | Given | 12/03/19 | 25 mg | | | | | 14 9:38 | | | | | | AM PDT | | | | +-------+ +-------+---+---+ | Given | 12/02/19 | 25 mg | | | | | 14 8:15 | | | | | | AM PDT | | | | +-------+ +-------+---+---+ +---+---+ | | | +---+---+ + +-------+ +------+---+---+ | midazolam (VERSED) 1 mg/mL | Given | 12/01/19 | 1 mg | | | | injection 0.5-1 mg 0.5-1 mg, | | 14 12:55 | | | | | Intravenous, EVERY 5 MIN PRN, | | PM PDT | | | | | Anxiety, Anxiety or agitation. | | | | | | | Please do not give unless pain | | | | | | | scores are under -., | | | | | | | Starting Nelida 11/30/13 at 1105, | | | | | | | Maximum total dose 2 mg., | | | | | | | Recovery/Phase I | | | | | | + +-------+ +------+---+---+ +---+---+ | | | +---+---+ + + + +------+---+---+ | midazolam (VERSED) 1 mg/mL | Given by | 12/01/19 | 1 mg | | | | injection 1 mg 1 mg, | Other | 14 12:35 | | | | | Intravenous, EVERY 5 MIN PRN, | | PM PDT | | | | | Anxiety, PRN Agitation, Starting | | | | | | | [facility] 11/30/13 at 1139, For 6 doses, | | | | | | | Recovery/Phase I | | | | | | + + + +------+---+---+ +-------+ +------+---+---+ | Given | 12/01/19 | 1 mg | | | | | 14 12:06 | | | | | | PM PDT | | | | +-------+ +------+---+---+ | Given | 12/01/19 | 1 mg | | | | | 14 11:49 | | | | | | AM PDT | | | | +-------+ +------+---+---+ +---+---+ | | | +---+---+ + +---------+ +---------+---+ + | nicotine (NICODERM) 21 mg/24 hr | Patch | 12/03/19 | 1 patch | | Deltoid- | | 1 patch 1 patch, Transdermal, | Applied | 14 9:14 | | | Left | | NIGHTLY, First dose on Wed11/28/13 | | PM PDT | | | | | at 2100 | | | | | | + +---------+ +---------+---+ + + + +---------+---+ + | Patch Applied | 12/02/19 | 1 patch | | Deltoid- | | | 14 8:44 | | | Right | | | PM PDT | | | | + + +---------+---+ + | Patch Applied | 12/01/19 | 1 patch | | Deltoid- | | | 14 8:07 | | | Right | | | PM PDT | | | | + + +---------+---+ + +---+---+ | | | +---+---+ + +-------+ +------+---+---+ | ondansetron (ZOFRAN) injection | Given | 11/29/19 | 4 mg | | | | 4 mg 4 mg, Intravenous, ONCE, | | 14 1:30 | | | | | Thao 11/28/13 at 1345, For 1 dose | | PM PDT | | | | + +-------+ +------+---+---+ +---+---+ | | | +---+---+ + +-------+ +-------+---+---+ | pantoprazole (PROTONIX) | Given | 12/04/19 | 40 mg | | | | injection 40 mg 40 mg, | | 14 8:51 | | | | | Intravenous, DAILY, First dose on | | AM PDT | | | | | Nelida 11/30/13 at 1445, Slow IV | | | | | | | push (dilute with 10ml NS)., | | | | | | | Post-op/Phase II | | | | | | + +-------+ +-------+---+---+ +-------+ +-------+---+---+ | Given | 12/03/19 | 40 mg | | | | | 14 9:36 | | | | | | AM PDT | | | | +-------+ +-------+---+---+ | Given | 12/02/19 | 40 mg | | | | | 14 8:16 | | | | | | AM PDT | | | | +-------+ +-------+---+---+ +---+---+ | | | +---+---+ + +---------+ +---------+-------+---+ | piperacillin-tazobactam (ZOSYN) | New Bag | 11/29/19 | 3.375 g | 200 | | | 3.375 g in sodium chloride 0.9% | | 14 4:45 | | mL/hr | | | 100 mL IVPB 3.375 g, | | PM PDT | | | | | Intravenous, Administer over 30 | | | | | | | Minutes, ONCE, Wed11/28/13 at | | | | | | | 1645, For 1 dose, Activate system | | | | | | | and mix before use., | | | | | | + +---------+ +---------+-------+---+ +---+---+ | | | +---+---+ + +---------+ +---------+-------+---+ | piperacillin-tazobactam (ZOSYN) | New Bag | 12/04/19 | 3.375 g | 200 | | | 3.375 g in sodium chloride 0.9% | | 14 5:04 | | mL/hr | | | 100 mL IVPB 3.375 g, | | AM PDT | | | | | Intravenous, Administer over 30 | | | | | | | Minutes, EVERY 6 HOURS (4 times | | | | | | | per day), First dose on Wed | | | | | | | 11/28/13 at 2030, Activate system | | | | | | | and mix before use., | | | | | | + +---------+ +---------+-------+---+ +---------+ +---------+-------+---+ | New Bag | 12/04/19 | 3.375 g | 200 | | | | 14 12:54 | | mL/hr | | | | AM PDT | | | | +---------+ +---------+-------+---+ | New Bag | 12/03/19 | 3.375 g | 200 | | | | 14 5:57 | | mL/hr | | | | PM PDT | | | | +---------+ +---------+-------+---+ +---+---+ | | | +---+---+ + +---------+ +---+-------+---+ | sodium chloride 0.9% (NS) | New Bag | 11/30/19 | | 150 | | | infusion at 150 mL/hr, | | 14 1:13 | | mL/hr | | | Intravenous, CONTINUOUS, Starting | | PM PDT | | | | | 11/28/13 at 1930 | | | | | | + +---------+ +---+-------+---+ +---------+ +---+-------+---+ | New Bag | 11/30/19 | | 150 | | | | 14 4:15 | | mL/hr | | | | AM PDT | | | | +---------+ +---+-------+---+ | New Bag | 11/29/19 | | 150 | | | | 14 8:00 | | mL/hr | | | | PM PDT | | | | +---------+ +---+-------+---+ +---+---+ | | | +---+---+ + +---------+ +--------+-------+---+ | sodium chloride 0.9% bolus | New Bag | 11/29/19 | 1,000 | 2000 | | | 1,000 mL 1,000 mL, Intravenous, | | 14 1:33 | mLs | mL/hr | | | Administer over 30 Minutes, ONCE, | | PM PDT | | | | | 11/28/13 at 1345, For 1 dose | | | | | | + +---------+ +--------+-------+---+ +---+---+ | | | +---+---+ + +-------+ + +---+---+ | technetium TC-99M mebrofenin | Given | 11/30/19 | 15 | | | | (CHOLETEC) injection 15 | | 14 11:53 | -millicu | | | | millicurie 15 -millicurie, | | AM PDT | maria e | | | | Intravenous, ONCE PRN, Other, | | | | | | | Starting 11/29/13 at 1152, For | | | | | | | 1 dose, Nuclear Medicine | | | | | | + +-------+ + +---+---+ +---+---+ | | | +---+---+ + +-------+ +--------+---+ + | thiamine (VITAMIN B-1) | Given | 11/29/19 | 100 mg | | Deltoid- | | injection 100 mg 100 mg, | | 14 8:00 | | | Left | | Intramuscular, ONCE, 11/28/13 | | PM PDT | | | | | at 1815, For 1 dose | | | | | | + +-------+ +--------+---+ + +---+---+ | | | +---+---+ + +-------+ +--------+---+---+ | thiamine (VITAMIN B-1) tablet | Given | 12/04/19 | 100 mg | | | | 100 mg 100 mg, Oral, DAILY, | | 14 8:52 | | | | | First dose on Wed11/29/13 at 0900 | | AM PDT | | | | + +-------+ +--------+---+---+ +-------+ +--------+---+---+ | Given | 12/03/19 | 100 mg | | | | | 14 9:38 | | | | | | AM PDT | | | | +-------+ +--------+---+---+ | Given | 12/02/19 | 100 mg | | | | | 14 8:15 | | | | | | AM PDT | | | | +-------+ +--------+---+---+ +---+---+ | | | +---+---+ + +-------+ +--------+---+---+ | traZODone (DESYREL) tablet 100 | Given | 12/03/19 | 100 mg | | | | mg 100 mg, Oral, NIGHTLY, First | | 14 9:17 | | | | | dose on 11/28/13 at 2100 | | PM PDT | | | | + +-------+ +--------+---+---+ +-------+ +--------+---+---+ | Given | 12/02/19 | 100 mg | | | | | 14 8:37 | | | | | | PM PDT | | | | +-------+ +--------+---+---+ | Given | 12/01/19 | 100 mg | | | | | 14 8:01 | | | | | | PM PDT | | | | +-------+ +--------+---+---+ +---+---+ | | | +---+---+ documented in this encounter
--- OUTSIDE RECORDS SUMMARY | ~2019-09-14 | XMS | Encounter Summary ---
Demographics + + + | Address | [address] | | | [place] [address] | + + + | Home Phone | | + + + | Preferred Language | Unknown | + + + | Marital Status | Single | + + + | Scientologist Affiliation | Unknown | + + + | Race | Unknown | + + + | Ethnic Group | Unknown | + + + Author + + + | Author | [facility] | | | [facility] | + + + | Organization | [facility] | | | and [...] | | | | | [place] [address] | | + + + + + Care Team Providers + +------+ + | Care Guest Services Director Name | Role | Phone | + +------+ + | Shi Miramontes | PCP | | + +------+ + Reason for Visit Auth/Cert +--------+--------+ + + + + | Status | Reason | Specialty | Diagnoses / | Referred By | Referred To | | | | | Procedures | Contact | Contact | +--------+--------+ + + + + | | | | | | | +--------+--------+ + + + + Encounter Details +--------+ + + + + | Date | Type | Department | Care Team | Description | +--------+ + + + + | 05/14/ | Home Care | [facility] | Darrell Soto, | SN REPEAT VISIT | | 2018 | Visit | [facility] [address] | [address] | | | | | [place], [place] | | | | | | [address] | | | | | | [phone] | | | +--------+ + + + [...] + + + | Blood Pressure | 110/62 | 05/14/2019 10:42 AM | | | | | PST | | + + + + + | Pulse | 16 | 05/14/2019 10:42 AM | | | | | PST | | + + + + + | Temperature | 37.2 C (99 F) | 05/14/2019 10:42 AM | | | | | PST | | + + + + + | Respiratory Rate | 18 | 05/14/2019 10:42 AM | | | | | PST | | + + + + + | Oxygen Saturation | 99% | 05/14/2019 10:42 AM | | | | | PST | | + + + + + | Inhaled Oxygen | - | - | | | Concentration | | | | + + + + + | Weight | - | - | | + + + + + | Height | - | - | | + + + + + | Body Mass Index | - | - | | + + + + + documented in this encounter Functional Status + + + [...] Not on filedocumented as of this encounter Visit Diagnoses Not on filedocumented in this encounter Home Health Visit - Care Plan + + | Visit Type - SN - REPEAT VISIT | | Discipline - [facility] | + + + + +--------+--------+ + + | Problem | Description | Start | Status | Goals | Interventio | | | | Date | | | ns | + + +--------+--------+ + + | Central/Midline IV | PICC right upper | | | - | 4 problem | | Disciplines: | arm | 05/09/ | Active | | | | [facility] | | 2018 | | | interventio | | | | | | | ns | | | | | | | scheduled/d | | | | | | | ocumented | | | | | | | in this | | | | | | | visit | + + +--------+--------+ + + | HH SHARED AT RISK | At risk for | | | - | 1 problem | | FOR PRESSURE ULCER | pressure ulcer | 05/09/ | Active | | | | Disciplines: | | 2018 | | | interventio | | [facility] | | | | | n | | | | | | | scheduled/d | | | | | | | ocumented | | | | | | | in this | | | | | | | visit | + + +--------+--------+ + + | HH SHARED DIABETIC | Diabetic foot care | | | 1 goal | 1 goal | | FOOT CARE | | 05/09/ | Active | linked to | interventio | | Disciplines: | | 2018 | | scheduled/d | n | | [facility] | | | | ocumented | scheduled/d | | | | | | interventio | ocumented | | | | | | n | in this | | | | | | | visit | + + +--------+--------+ + + | HH SHARED FALLS | Falls | | | - | 1 problem | | Disciplines: | | 05/09/ | Active | | | | [facility] | | 2019 | | | interventio | | | | | | | n | | | | | | | scheduled/d | | | | | | | ocumented | | | | | | | in this | | | | | | | visit | + + +--------+--------+ + + | HH SHARED PAIN | Pain | | | - | 1 problem | | Disciplines: | | 05/09/ | Active | | | | [facility] | | 2018 | | | interventio | | | | | | | n | | | | | | | scheduled/d | | | | | | | ocumented | | | | | | | in this | | | | | | | visit | + + +--------+--------+ + + | HH Surgical Wound | S/P left foot I&D | | | - | 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 | 05/09/ | Active | | | | [facility] | | 2018 | | | interventio | | | | | | | ns | | | | | | | scheduled/d | | | | | | | ocumented | | | | | | | in this | | | | | | | visit | + + +--------+--------+ + + | Health Promotion | Immunization | | | - | 2 problem | | Disciplines: | | 05/09/ | Active | | | | [facility], | | 2018 | | | interventio | | Prosthetic Dentist | | | | | ns | | | | | | | scheduled/d | | | | | | | ocumented | | | | | | | in this | | | | | | | visit | + + +--------+--------+ + + | Knowledge Deficit, | | | | - | 1 problem | | Education, | | 05/09/ | Active | | | | Discharge Plan | | 2019 | | | interventio | | Disciplines: | | | | | n | | [facility], | | | | | scheduled/d | | Prosthetic Dentist | | | | | ocumented | | | | | | | in this | | | | | | | visit | + + +--------+--------+ + + + + +--------+-------+ + | Goal | Associated Problem | Outcom | Goal | Visit Notes | | | | e | Met? | | + + +--------+-------+ + | HH SN ALTERATION | HH SHARED DIABETIC | | No | | | IN COMFORT | FOOT CARE | | | | | Description: The | | | | | | patient and/or | | | | | | caregiver will | | | | | | verbalize | | | | | | understanding of | | | | | | proper diabetic foot | | | | | | care. The | | | | | | patient's feet will | | | | | | remain absent of new | | | | | | or worsening skin | | | | | | complications | | | | | | related to diabetes. | | | | | | | | | | | + + +--------+-------+ + + + +--------+--------+ + | Intervention | Associated | Status | Varian | Visit Notes | | | Problem/Goal | | ce | | + + +--------+--------+ + | Assess and | Problem: | | | No s/s of infection, | | identify | Central/Midline IV | Comple | | PICC flushes without | | complications from | | tj | | difficulty | | IV therapy | | | | | | Description: | | | | | | Assess and identify | | | | | | s/s of infection | | | | | | from PICC site. | | | | | + + +--------+--------+ + | Instruct in | Problem: | | | Instructed the | | administration of IV | Central/Midline IV | Comple | | caregiver in | | solutions/meds per | | tj | | administration of IV | | MD order | | | | solution(s)/medication(s | | Description: clean | | | | ). Patient and/or | | PICC with alcohol | | | | caregiver able to | | wipe, flush with 10 | | | | verbalize and | | ml NS then Rocephin | | | | demonstrate | | 2g IV over 5 min via | | | | administration of | | PICC daily until | | | | Antibiotics: Yes | | 06/15/19 (Pt's | | | | | | daughter is doing it | | | | | | at 1700). Flush | | | | | | with 10 ml NS then | | | | | | 5ml Heparin. | | | | | + + +--------+--------+ + | IV dressing Change | Problem: | | | PICC line dressing | | Description: | Central/Midline IV | Comple | | changed per [facility] | | Transparent and | | tj | | protocol. Infusion caps | | sterile dressing | | | | primed and changed. | | change weekly on | | | | | | Wednesday and prn. | | | | | | Next dressing change | | | | | | is due on 05/14/19. | | | | | + + +--------+--------+ + | Obtain lab | Problem: | | | Sample obtained from | | Description: | Central/Midline IV | Comple | | PICC using aseptic | | Weekly lab on | | tj | | technique for CBC and | | Wednesday, CBC and CMP. | | | | CMP as ordered. Well | | Next due is | | | | tolerated by patient. | | 05/14/19. Send the | | | | Next lab draw due 05/21. | | result to [facility] | | | | | | also. [phone] | | | | | | Dr. Simpson / ASIF | | | | | | ICD10 code: I96 | | | | | | and M86.9 | | | | | + + +--------+--------+ + | Pressure ulcer | Problem: HH SHARED | | | | | prevention | AT RISK FOR PRESSURE | Comple | | Patient/caregivers/famil | | Description: | ULCER | tj | | y state understanding of | | Instruct PT/CG in | | | | strategies to prevent | | ways to prevent skin | | | | pressure ulcers and | | breakdown which | | | | other forms of skin | | includes frequent | | | | breakdown. | | position changes, | | | | | | proper positioning | | | | | | to relieve pressure, | | | | | | careful skin | | | | | | assessment, hygiene | | | | | | and use of pressure | | | | | | relieving devices | | | | | | and provide teaching | | | | | | handout. Evaluate | | | | | | patient's skin | | | | | | integrity and | | | | | | general condition of | | | | | | skin. RN to assess | | | | | | PT/CG compliance | | | | | | with preventing | | | | | | pressure sores. | | | | | + + +--------+--------+ + | Diabetic Foot | Problem: SHARED | | | Dressing changed to | | Assessment | DIABETIC FOOT | Comple | | right middle to | | Description: | CAREGoal: SN | tj | | amputation site. 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 Skin of remaining | | lesions/skin | | | | BLE intact. | | integrity, instruct | | | | | | patient and/or | | | | | | caregiver in proper | | | | | | diabetic foot care, | | | | | | and provide written | | | | | | information | | | | | | regarding diabetic | | | | | | foot care. | | | | | + + +--------+--------+ + | Fall prevention | Problem: SHARED | | | Verbal and written | | Description: RN to | FALLS | Comple | | information on fall | | assess patient | | tj | | prevention reviewed with | | history of falls at | | | | patient, | | each home visit. RN | | | | patient/caregiver states | | to instruct fall | | | | understanding of fall | | prevention which | | | | prevention strategies | | includes assistance | | | | and precautions. | | with environmental | | | | | | changes, | | | | | | strengthening | | | | | | exercises. RN to | | | | | | assess patient's | | | | | | need for additional | | | | | | assistance and/or | | | | | | referral to | | | | | | Occupational therapy | | | | | | or Physical | | | | | | therapy. | | | | | + + +--------+--------+ + | Pain management | Problem: HH SHARED | | | | | Description: | PAIN | Comple | | Patient/caregiver/family | | Instruct PT/CG | | tj | | states understanding of | | regarding pain | | | | pain management | | management, | | | | modalities and takes | | providing teaching | | | | pain medications | | handout. Instruct | | | | appropriately. | | PT/CG to take/ | | | | | | administer | | | | | | analgesics as | | | | | | ordered in | | | | | | sufficient quantity | | | | | | to relieve pain. | | | | | | RN to assess for | | | | | | pain characteristics | | | | | | including kind, | | | | | | location, response | | | | | | to activity, | | | | | | effectiveness of | | | | | | pain relief | | | | | | measures. RN will | | | | | | assess and verify | | | | | | effectiveness of | | | | | | pain medication and | | | | | | pain relief | | | | | | measures. | | | | | + + +--------+--------+ + | Wound care | Problem: HH Surgical | | | Dressing changed by | | Description: Wound | Wound | Comple | | caregiver. | | type: Left toes | | tj | | | | amputation and I&D. | | | | | | Wound care : RN | | | | | | Clean with wound | | | | | | cleanser. Apply non | | | | | | adherent oil | | | | | | emulsion dressing | | | | | | laid against | | | | | | incision wound. | | | | | | Cover with 3 6x6 | | | | | | gauze pad and secure | | | | | | with Kerlix conform | | | | | | gauze. May apply | | | | | | foam, hydrocolloid, | | | | | | Tegaderm, dry gauze | | | | | | prn RN discretion. | | | | | | Teach family to | | | | | | change daily. | | | | | | Measure wound every | | | | | | 2 weeks and prn. | | | | | + + +--------+--------+ + | HH Measure Wound | Problem: HH Surgical | | | | | Description: | Wound | Comple | | | | Measure wound every | | tj | | | | 2 weeks and prn. | | | | | + + +--------+--------+ + | Instruct wound | Problem: HH Surgical | | | patient and caregiver | | care Description: | Wound | Comple | | instructed in surgical | | Instruct pt/CG s/s | | tj | | wound care to left foot. | | of infection to | | | | Wound care to consist | | notify medical | | | | of Cleanse with, aseptic | | provider. | | | | cleanser. Apply sterile | | | | | | and fluff. Secure with | | | | | | paper tape. patient and | | | | | | caregiver demonstrate | | | | | | ability to perform | | | | | | | + + +--------+--------+ + | Assess | Problem: Health | | | current on on | | immunization status | Promotion | Comple | | immunizations | | Description: Have | | tj | | | | you had a flu | | | | | | vaccine in the | | | | | | current flu season? | | | | | | Yes If yes, what | | | | | | was the date of your | | | | | | vaccination? | | | | | | 03/10/19 If no, may | | | | | | I arrange one for | | | | | | you? If patient | | | | | | is 65 or older or if | | | | | | indicated per [facility] | | | | | | Guidelines: Have | | | | | | you ever had the | | | | | | pneumonia vaccine? | | | | | | Yes 02/11/16 If no, | | | | | | what is the reason? | | | | | | May I arrange one | | | | | | for you? | | | | | + + +--------+--------+ + | Teach | Problem: Health | | | | | Description: | Promotion | Comple | | | | Provided [facility] | | tj | | | | Handout. Provided | | | | | | education on risks | | | | | | and benefits of | | | | | | vaccination. | | | | | | Patient/caregiver | | | | | | acknowledged | | | | | | understanding of | | | | | | education. | | | | | + + +--------+--------+ + | Discharge planning | Problem: Knowledge | | | | | Description: | Deficit, Education, | Comple | | Patient/caregiver/family | | Assess if the | Discharge Plan | tj | | states understanding | | established | | | | of, and continues to be | | discharge plan is | | | | in agreement with, | | still agreeable with | | | | established plan for | | the | | | | discharge. | | patient/caregiver/fa | | | | | | corazon/PCP or if a new | | | | | | discharge plan | | | | | | needs to be | | | | | | discussed and put in | | | | | | place. If patient | | | | | | is considering a | | | | | | higher level of care | | | | | | OR moving to a new | | | | | | home health agency, | | | | | | patient educated to | | | | | | the receiving | | | | | | facility's quality | | | | | | scores located in | | | | | | SOC packet. | | | | | + + +--------+--------+ + documented in this encounter"
--- OUTSIDE RECORDS SUMMARY | ~2019-09-14 | XMS | Encounter Summary ---
Demographics + + + | Address | [address] | | | [place] [address] | + + + | Home Phone | | + + + | Preferred Language | Unknown | + + + | Marital Status | Single | + + + | Mormonism Affiliation | Unknown | + + + | Race | Unknown | + + + | Ethnic Group | Unknown | + + + Author + + + | Author | [facility] | | | and [facility] | + + + | Organization | [facility] | | | and [...] | | | | | [place] [address] | | + + + + + Care Team Providers + +------+ + | Care Stock Preparer Name | Role | Phone | + +------+ + | Yoni Miramontes | PCP | | + +------+ + Reason for Referral Home Health Care (Routine) +--------+ + + + + + | Status | Reason | Specialty | Diagnoses / | Referred By | Referred To | | | | | Procedures | Contact | Contact | +--------+ + + + + + | Closed | Specialty | Home Health | Diagnoses | Ahmed, | Prov Hh | | | Services | Services | Gangrene of | Efraín | Milam | | | Required | | toe of left | Davdi, MD | [address] | | | | | foot ([facility]) | [address] | [address] [place] | | | | | | [place] | [place] | | | | | Osteomyeliti | [place] | [address] | | | | | s of third | [id number] | Phone: | | | | | toe of left | Phone: | [phone] | | | | | foot ([facility]) | [phone] | Fax: | | | | | Procedures | Fax: | [phone] | | | | | 05/09/19 | [phone] | | | | | | *05/09* SN | | | +--------+ + + + + + Reason for Visit + + + | Reason | Comments | + + + | Toe Swelling | | + + + | Toe Redness | | + + + Auth/Cert +--------+--------+ [...] + + + + | 05/04/ | Hospital | [facility] | Logan Barrow | Gangrene of toe of | | 2019 - | Encounter | [facility] | Gregory Ceballos MD | left foot (HCC) | | | | [address] [place] | [address] | (Primary Dx); | | 05/08/ | | [place] [address] | [place] | Cellulitis of foot; | | 2019 | | [phone] | [address] | Toe necrosis (HCC); | | | | | | Cellulitis of third | | | | | Dax Jara, | toe, left; | | | | | MD Val [address] | Osteomyelitis of | | | | | [address] [place] | third toe of left | | | | | [place] [address] | foot (HCC); | | | | | [phone] | Cellulitis of fourth | | | | | | toe of left foot; | | | | | CC WOM OR OTHER | PAD (peripheral | | | | | | artery disease) | | | | | | (HCC); Essential | | | | | | hypertension; | | | | | | Non-insulin | | | | | | dependent type 2 | | | | | | diabetes mellitus | | | | | | (HCC); | | | | | | Hyperlipidemia, | | | | | | unspecified | | | | | | hyperlipidemia type; | | | | | | Smoker | +--------+ + + + + Social [...] + + + | Blood Pressure | 154/78 | 05/08/2019 4:07 PM | | | | | PST | | + + + + + | Pulse | 90 | 05/08/2019 4:07 PM | | | | | PST | | + + + + + | Temperature | 36.9 C (98.4 F) | 05/08/2019 4:07 PM | | | | | PST | | + + + + + | Respiratory Rate | 20 | 05/08/2019 4:07 PM | | | | | PST | | + + + + + | Oxygen Saturation | 95% | 05/08/2019 4:07 PM | | | | | PST | | + + + + + | Inhaled Oxygen | - | - | | | Concentration | | | | + + + + + | Weight | 72.2 kg (159 lb 2.8 | 05/08/2019 4:00 AM | | | | oz) | PST | | + + + + + | Height | 172.7 cm (5' 8") | 05/04/2019 2:53 PM | | | | | PST | | + + + + + | Body Mass Index | 24.2 | 05/04/2019 2:53 PM | | | | | PST | [...] + + documented as of this encounter Discharge Summaries Efraín Wright MD - 05/08/2019 7:09 PM PSTFormatting of this note might be differen t from the original. [place] HOSPITALIST DISCHARGE SUMMARY Pt. Name/Age/: Paul Bunn 73 y.o. 1945 Date of Admission: 05/04/2019 Date of Discharge: 05/08/2019 Admitting Physician: XIOMARA AVENDAÑO OR OTHER Primary Care Provider: ANATOLY Rawls Discharging Physician: Efraín Wright MD DISCHARGE DIAGNOSES: Active Hospital Problems Diagnosis Gangrene of toe of left foot Osteomyelitis of third toe of left foot Cellulitis of fourth toe, left Smoker - Daily Hyponatremia Alcohol use, Habitual Peripheral vascular disease Hypertension GERD (gastroesophageal reflux disease) Diabetes mellitus type II, ORAL Control Resolved Hospital Problems No resolved problems to display. DISCHARGE MEDICATIONS: Discharge Medications New Medications Details cefTRIAXone (ROCEPHIN) IVPB (custom dose) 2 g Inject 2 g into the vein Daily for 38 days. Indications: Infection of Bone and Bone Marrow nicotine 21 mg/[address] 1 patch onto the skin Daily. aka: NICODERM nicotine polacrilex 4 MG lozenge One lozenge should be taken every 1 to 2 hours for the first 6 weeks, then one lozenge myesha ry 2 to 4 hours during weeks 7 to 9 and every 4 to 8 hours during weeks 10 through 12 (maxim um 20 lozenges/day) aka: COMMIT Unchanged Medications Details ascorbic acid 500 mg tablet Take 500 mg by mouth Daily. aka: VITAMIN C aspirin 81 MG EC tablet Take 81 mg by mouth Daily. Calcium 600 + D 600-400 MG-UNIT Tabs Generic drug: calcium-vitamin D Take 1,200 mg by mouth every evening. cholecalciferol 25 mcg (1,000 units) tablet Take 2,000 Units by mouth Daily. aka: VITAMIN D-3 clopidogrel 75 mg tablet Take 75 mg by mouth Daily. aka: PLAVIX clotrimazole 1% external solution Apply topically 2 times daily. aka: LOTRIMIN cyanocobalamin 500 mcg tablet Take 1,000 mcg by mouth Daily. aka: VITAMIN B-12 cyclobenzaprine 10 mg tablet Take 10 mg by mouth nightly as needed for Muscle spasms. aka: FLEXERIL docusate sodium 250 MG capsule Take 250 mg by mouth 2 times daily. aka: COLACE fish oil 1,000 mg capsule Take 1,000 mg by mouth 2 times daily. gabapentin 300 mg capsule Take 600 mg by mouth every 4 hours. For neuropathy and QUINTERO pain aka: NEURONTIN HYDROcodone-acetaminophen 10-325 mg per tablet Take 1 tablet by mouth 4 times daily as needed for Pain. aka: NORCO lisinopril 20 mg tablet Take 20 mg by mouth Daily. aka: PRINIVIL, ZESTRIL magnesium oxide 420 MG Tabs Take 840 mg by mouth Daily. aka: MAOX metFORMIN 1000 MG tablet Take 1,000 mg by mouth 2 times daily (with breakfast & dinner). aka: GLUCOPHAGE metoprolol succinate 50 mg 24 hr tablet Take 25 mg by mouth Daily. aka: TOPROL-XL MULTIPLE VITAMINS-MINERALS PO Take 1 tablet by mouth Daily. naloxone 4 mg/nasal spray 4 mg by Nasal route as needed. [place] 1 dose in nose as directed as needed for accidental o pioid (pain medication) overdose. May repeat in other nostril in 3-5 minutes if needed. Jia l 911. aka: NARCAN naproxen 250 mg tablet Take 250 mg by mouth. Every 8-12 hours as needed for pain aka: NAPROSYN omeprazole 20 mg capsule Take 20 mg by mouth 2 times daily. aka: priLOSEC PROBIOTIC ACIDOPHILUS Caps Take 1 capsule by mouth 2 times daily. senna 8.6 mg tablet Take 1 tablet by mouth Daily. aka: SENOKOT sildenafil 100 MG tablet Take 50 mg by mouth Daily as needed for Erectile Dysfunction. No more than 1 dose per day/ 4 per month aka: VIAGRA simvastatin 20 mg tablet Take 20 mg by mouth nightly. aka: ZOCOR tamsulosin 0.4 mg Caps Take 0.8 mg by mouth Daily. For urinary frequency/prostate aka: FLOMAX traZODone 150 MG tablet Take 150 mg by mouth nightly. aka: [facility] COURSE: Please refer to the H&P for full details and the most recent rounding rounding (progress) n ote. 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 He has been isabel g to wound care up until 1 month ago, when he was transition to wound care at home which his daughter was doing. He reported that things look good 2 weeks ago, and they start doing w ound care. Last few days, he noted that his third digit became very swollen and erythemato us, then to started darkening, he developed deep ulceration that went all the way to the bon e. [facility] and he was referred to [facility] for further evaluation. On review of systems, he denies any fever, chills, sweats. He denies any chest pain, sh ortness of breath, palpitations. He denies any nausea, vomiting, abdominal pain or urinary symptoms. Vital signs in the ER, initially with hypertension, currently stable. Laboratory studies significant for no leukocytosis, stable hemoglobin, normal renal function. Noted mild hypo natremia. Elevated ALP. Blood cultures drawn, x-ray of foot performed. Podiatry was co nsulted, patient will be taken to the OR tonight for further amputation. Wound cultures wi ll be sent. 73 y.o.malewith PMH significant for previous right AKA, PAD, left first and second toe amputations presentedwith necrotic wound of the third toe with bone exposed, redness/swell ing of fourth toe # Gangrene of left third toe with exposed bone, e/o infection and osteomyelitis # Cellulitis of left fourth toe - s/p Left 3rd/4th/5th amputation by Dr. Coreas 05/04 - deep Cx grew Enterobacter cloacae, BCx 05/04 05/27 bottles Coag negative Staph, likely con taminant, repeat BCx NGTD - HDS - pain control - treated with Vanc and Zosyn , abx narrowed to Rocephin, PICC line placed, IV abx for 6 we eks (end date 06/15/2019) - 05/[address] Coreas: concern for wound dehiscence over the toe amputation s site, recommended repeat surgical debridement but patient declined citing 'very important thing to take care of at home today' . Patient to see Dr. Coreas in clinic on 05/11/2019 f or repeat debridement # PAD s/p prior right AKA, stents in LE, left 1st/2nd toe amputation - cont asa/plavix/statin - continues to smoke, counseled to quit # HTN - continue home meds # NIDDM - HbA1c 6.6 - continue Metformin # HLD - cont statin # Smoker - 1-/ ppd - cont nicotine patch and prn lozenges Most recent weight: Input and output for last 24hrs: Wt Readings from Last 1 Encounters: 05/09/19 72.1 kg (159 lb) No intake/output data recorded. Vitals Ranges: Vitals: Temp: 36.9 C (98.4 F) BP: 154/78 Pulse: 90 Resp: 20 SpO2: 95 % SpO2 95 % on room air at flow rate L/min PHYSICAL EXAM: Patient seen and examined by me on discharge day PROCEDURES AND CONSULTS: Procedures Left 3rd/4th/[address]th [address]. Coreas 05/[address] Coreas/Podiatry PENDING RESULTS: none DISPOSITION AND DISCHARGE INSTRUCTIONS: Follow-up Information ANATOLY Rawls. Schedule an appointment as soon as possible for a visit in 1 week. Specialty: Family Nurse Practitioner Contact information: [address] [facility] [address] Kaylyn Coreas DPM. Schedule an appointment as soon as possible for a visit on 05/11/20. Specialty: Podiatry Contact information: [address] [facility] [address] Condition: Patient being discharged with condition improved Diet:diabetic, fat and cholesterol modified Greater than 30 minutes were spent on discharge and coordination of post-hospital care. Electronically signed by: Efraín Wright MD, 05/12/2019 11:09 AM [facility] Portions of this chart may have been created with [employer] voice recognition software. Occasi onal wrong-word or sound-alike substitutions may have occurred due to the inherent leigh itations of voice recognition software. Please read the chart carefully and recognize, using context, where these substitutions have occurred documented in this encounter Discharge Instructions AttachmentsThe following attachments cannot be sent through Care Everywhere.Osteomyelitis, Discharge Instructions for (Ethiopian)documented in this encounter Medications at Time of Discharge + + + +---------+ + + | Medication | Sig | Dispensed | Refills | Start | End Date | | | | | | Date | | + + + +---------+ + + | ascorbic acid | Take 500 mg by mouth | | 0 | | | | (VITAMIN C) 500 mg | Daily. | | | | | | tablet | | | | | | + + + +---------+ + + | aspirin 81 MG EC | Take 81 mg by mouth | | 0 | | | | tablet | Daily. | | | | | + + + +---------+ + + | calcium-vitamin D | Take 1,200 mg by | | 0 | | | | (CALCIUM 600 + D) | mouth every evening. | | | | | | 600-400 MG-UNIT TABS | | | | | | + + + +---------+ + + | cholecalciferol | Take 2,000 Units by | | 0 | | | | (VITAMIN D-3) 1,000 | mouth Daily. | | | | | | units tablet | | | | | | + + + +---------+ + + | clopidogrel | Take 75 mg by mouth | | 0 | | | | (PLAVIX) 75 mg | Daily. | | | | | | tablet | | | | | | + + + +---------+ + + | clotrimazole | Apply topically 2 | | 0 | | | | (LOTRIMIN) 1% | times daily. | | | | | | external solution | | | | | | + + + +---------+ + + | cyanocobalamin | Take 1,000 mcg by | | 0 | | | | (VITAMIN B-12) 500 | mouth Daily. | | | | | | mcg tablet | | | | | | + + + +---------+ + + | cyclobenzaprine | Take 10 mg by mouth | | 0 | | | | (FLEXERIL) 10 mg | nightly as needed | | | | | | tablet | for Muscle spasms. | | | | | + + + +---------+ + + | docusate sodium | Take 250 mg by mouth | | 0 | | | | (COLACE) 250 MG | 2 times daily. | | | | | | capsule | | | | | | + + + +---------+ + + | fish oil 1,000 mg | Take 1,000 mg by | | 0 | | | | capsule | mouth 2 times daily. | | | | | + + + +---------+ + + | gabapentin | Take 600 mg by mouth | | 0 | | | | (NEURONTIN) 300 mg | every 4 hours. For | | | | | | capsule | neuropathy and QUINTERO | | | | | | | pain | | | | | + + + +---------+ + + | Lactobacillus | Take 1 capsule by | 30 | 0 | 02/18/ | | | (PROBIOTIC | mouth 2 times daily. | capsule | | 19 | | | ACIDOPHILUS) CAPS | | | | | | + + + +---------+ + + | lisinopril | Take 20 mg by mouth | | 0 | | | | (PRINIVIL, ZESTRIL) | Daily. | | | | | | 20 mg tablet | | | | | | + + + +---------+ + + | magnesium oxide | Take 840 mg by mouth | | 0 | | | | (MAOX) 420 MG TABS | Daily. | | | | | + + + +---------+ + + | metformin | Take 1,000 mg by | | 0 | | | | (GLUCOPHAGE) 1000 MG | mouth 2 times daily | | | | | | tablet | (with breakfast & | | | | | | | dinner). | | | | | + + + +---------+ + + | MULTIPLE | Take 1 tablet by | | 0 | | | | VITAMINS-MINERALS PO | mouth Daily. | | | | | + + + +---------+ + + | naloxone (NARCAN) | 4 mg by Nasal route | | 0 | | | | 4 mg/nasal spray | as needed. [place] 1 | | | | | | | dose in nose as | | | | | | | directed as needed | | | | | | | for accidental | | | | | | | opioid (pain | | | | | | | medication) | | | | | | | overdose. May repeat | | | | | | | in other nostril in | | | | | | | 3-5 minutes if | | | | | | | needed. Call 911. | | | | | + + + +---------+ + + | naproxen | Take 250 mg by | | 0 | | | | (NAPROSYN) 250 mg | mouth. Every 8-12 | | | | | | tablet | hours as needed for | | | | | | | pain | | | | | + + + +---------+ + + | nicotine | Place 1 patch onto | 30 | 0 | 12/17/20 | | | (NICODERM) 21 mg/24 | the skin Daily. | patch | | 19 | | | hr | | | | | | + + + +---------+ + + | nicotine | One lozenge should | 72 | 0 | 12/16/20 | | | polacrilex (COMMIT) | be taken every 1 to | lozenge | | 19 | | | 4 MG lozenge | 2 hours for the | | | | | | | first 6 weeks, then | | | | | | | one lozenge every 2 | | | | | | | to 4 hours during | | | | | | | weeks 7 to 9 and | | | | | | | every 4 to 8 hours | | | | | | | during weeks 10 | | | | | | | through 12 (maximum | | | | | | | 20 lozenges/day) | | | | | + + + +---------+ + + | omeprazole | Take 20 mg by mouth | | 0 | | | | (PRILOSEC) 20 mg | 2 times daily. | | | | | | capsule | | | | | | + + + +---------+ + + | senna (SENOKOT) | Take 1 tablet by | | 0 | | | | 8.6 mg tablet | mouth Daily. | | | | | + + + +---------+ + + | sildenafil | Take 50 mg by mouth | | 0 | | | | (VIAGRA) 100 MG | Daily as needed for | | | | | | tablet | Erectile | | | | | | | Dysfunction. No more | | | | | | | than 1 dose per | | | | | | | day/4 per month | | | | | + + + +---------+ + + | simvastatin | Take 20 mg by mouth | | 0 | | | | (ZOCOR) 20 mg tablet | nightly. | | | | | + + + +---------+ + + | tamsulosin | Take 0.8 mg by mouth | | 0 | | | | (FLOMAX) 0.4 mg CAPS | Daily. For urinary | | | | | | | frequency/prostate | | | | | + + + +---------+ + + | traZODone | Take 150 mg by mouth | | 0 | | | | (DESYREL) 150 MG | nightly. | | | | | | tablet | | | | | | + + + +---------+ + + | cefTRIAXone | Inject 2 g into the | 38 each | 0 | 05/08/20 | | | (ROCEPHIN) IVPB | vein Daily for 38 | | | 19 | 0 | | (custom dose) 2 | days. Indications: | | | | | | gIndications: | Infection of Bone | | | | | | Osteomyelitis | and Bone Marrow | | | | | + + + +---------+ + + | | Take 1 tablet by | 20 | 0 | 05/08/20 | | | HYDROcodone-acetamin | mouth 4 times daily | tablet | | 19 | 0 | | ophen (NORCO) 10-325 | as needed for Pain. | | | | | | mg per tablet | | | | | | + + + +---------+ + + | metoprolol | Take 25 mg by mouth | | 0 | | | | succinate | Daily. | | | | 0 | | (TOPROL-XL) 50 mg 24 | | | | | | | hr tablet | | | | | | + + + +---------+ + + documented as of this encounter Progress Notes Kaylyn Coreas DPM - 05/08/2019 12:27 PM PST Foot & Ankle Surgery Progress Note Kaylyn Coreas DPM DPM Paul Bunn Age/Gender 73 y.o. male Location [facility] Attending Val Jara MD Hosp Day # 4 PCP ANATOLY Rawls Date of Surgery: 05/04/2019 Post Operative Day: 3 Procedure: Left foot I&D for infection down to bone, amputation of digits 3,4,5 Subjective: Attempted to see patient. Called his name but sleeping. Objective: VASC: DP is 1/4; PT is 1/4; CFT is 4 seconds NEURO: Gross protective sensation is intact. MSK: Right AKA, left TMA DERM: Left foot incision across the distal foot. The lateral 3cm of the wound is without er ythema or drainage. The medial portion of the wound is with dehiscence. With tenderness at t his site. Recent Labs 05/08/19 0640 05/07/19 0503 05/06/19 0650 WBC 10.3 9.9 9.5 HCT 39.2* 44.3 41.3 HGB 13.3* 14.9 13.9 PLT 359 332 287 GLU 137* 113* 122* Microbiology Results (Last 14 Days by Collected Date with Culture/Sensitivity) Procedure Component Value Units Date/Time Culture, Blood [[id number]] Collected: 05/06/19649 Order Status: Completed Lab Status: Preliminary result Updated: 05/06/191910 Specimen: Peripheral Blood Culture No growth: Monitored continually by instrument for 5 days Culture, Blood [[id number]] Collected: 05/06/1950 Order Status: Completed Lab Status: Preliminary result Updated: 05/06/191910 Specimen: Peripheral Blood Culture No growth: Monitored continually by instrument for 5 days Culture, Wound, Smear, w/Anaerobe [[id number]] Collected: 05/04/192208 Order Status: Sent Lab Status: In process Updated: 05/07/19 1105 Specimen: Tissue from Toe, Third, Left Narrative: The following orders were created for panel order Culture, Wound, Smear, w/Anaerobe. Procedure Abnormality Status --------- ------ Culture, Wound, Smear[[id number]] Final result Culture, Anaerobic[[id number]] Normal Preliminary result Please view results for these tests on the individual orders. Culture, Wound, Smear [[id number]] (Susceptibility) Collected: 05/04/192208 Order Status: Completed Lab Status: Final result Updated: 05/07/19 1105 Specimen: Tissue from Toe, Third, Left Culture 2+ Enterobacter cloacae ssp cloacae Comment: This organism is known to possess inducible beta-lactamases. Isolates may become resistant to all cephalosporins after initiation of therapy. Avoid beta-lactam/beta-lactama se inhibitory combinations. Gram Stain Result 1+ White Blood Cells 2+ Epithelial cells 1+ Gram negative rods Susceptibility Enterobacter cloacae ssp cloacae (1) Antibiotic Interpretation Microscan Method Status Cefazolin Resistant >=64 ug/mL Not Specified Final Cefoxitin Resistant >=64 ug/mL Not Specified Final Ceftazidime Sensitive <=1 ug/mL Not Specified Final Ceftriaxone Sensitive <=1 ug/mL Not Specified Final Ciprofloxacin Sensitive <=0.25 ug/mL Not Specified Final Ertapenem Sensitive <=0.5 ug/mL Not Specified Final Gentamicin Sensitive <=1 ug/mL Not Specified Final Meropenem Sensitive <=0.25 ug/mL Not Specified Final Piperacillin + Tazobactam Sensitive <=4 ug/mL Not Specified Final Tobramycin Sensitive <=1 ug/mL Not Specified Final Trimethoprim + Sulfamethoxazole Sensitive <=20 ug/mL Not Specified Final Culture, Anaerobic [[id number]] (Normal) Collected: 05/04/192208 Order Status: Completed Lab Status: Preliminary result Updated: 05/07/19 1456 Specimen: Tissue from Toe, Third, Left Culture Culture in progress... Culture, Blood [[id number]] Collected: 05/04/19 1631 Order Status: Completed Lab Status: Preliminary result Updated: 05/07/19 164 Specimen: Blood from Line Culture No growth: Monitored continually by instrument for 5 days Culture, Blood [[id number]] (Abnormal) Collected: 05/04/19 1618 Order Status: Completed Lab Status: Preliminary result Updated: 05/08/19 0953 Specimen: Peripheral Blood Culture Positive Blood Culture Staphylococcus capitis Comment: Probable contaminant Gram Stain Result Gram positive cocci in clusters Comment: 1 of 4 bottles positive. Critical Result called to and read back by Connie Alonzo on 05/06/2019 at 5:05 AM by Juan Becerra. Blood Culture GP Pathogen Panel, PCR [[id number]] (Abnormal) Collected: 05/04/19 1618 Order Status: Completed Lab Status: Final result Updated: 05/06/19 0749 Specimen: Peripheral Blood Staphylococcus species, DNA Detected Comment: Critical Result called to and read back by Soraya Loredo PharmD on 05/06/2019 at 7:45 AM by Iván Mary. Staphylococcus aureus, DNA Not Detected mecA (methicillin-resistance gene), DNA N/A Staphylococcus epidermidis, DNA Not Detected Staphylococcus lugdunensis, DNA Not Detected Enterococcus faecalis, DNA Not Detected Enterococcus faecium, DNA Not Detected Moustapha (vancomycin-resistance gene), DNA N/A Streptococcus species, DNA Not Detected Streptococcus agalactiae (Group B), DNA Not Detected Streptococcus anginosus, DNA Not Detected Streptococcus pneumonia/mitis, DNA Not Detected Streptococcus pyogenes (Group A), DNA Not Detected Listeria species, DNA Not Detected vanB (vancomycin-resistance gene), DNA N/A Assessment: Paul Bunn is a 73 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 On exam today there is concern morales dehiseince over the the toe amp utation site. Reviewed findings with patient. Recommend a repeat surgical debridement but he declines because he has 'very important' things to do at home that he needs to get back to. He verbalizes that he will follow up in office afternoon. Plan: The wound dressing is changed. New sterile dressing applied. The dressing will be changed d aily. Continue IV anitbiotics. Continue with 6 week course. To avoid forefoot weight bearing. Okay to heel weight bear Monitor for signs of infection. [facility] -If discharged will f/u on at [facility]. Kaylyn Coreas DPM 12:27 PM; 05/08/2019 aylyn Coreas DPM - 05/07/2019 5:26 PM PST Foot & Ankle Surgery Progress Note Kaylyn Coreas DPM DPM Paul Bunn Age/Gender 73 y.o. male Location [facility] Attending Val Jara MD Hosp Day # 3 PCP ANATOLY Rawls Date of Surgery: 05/04/2019 Post Operative Day: 3 Procedure: Left foot I&D for infection down to bone, amputation of digits 3,4,5 Subjective: Attempted to see patient. Called his name but sleeping. Objective: VASC: DP is 1/4; PT is 1/4; CFT is 4 seconds NEURO: Gross protective sensation is intact. MSK: Right AKA, left TMA DERM: Bandage is intact over the left foot. The bandage remains without strikethrough Recent Labs 05/07/19 0503 05/06/19 0650 05/05/19 0439 05/05/19 0002 WBC 9.9 9.5 7.4 -- HCT 44.3 41.3 41.1 -- HGB 14.9 13.9 13.9 -- PLT 332 287 293 -- GLU 113* 122* 119* 105 Microbiology Results (Last 14 Days by Collected Date with Culture/Sensitivity) Procedure Component Value Units Date/Time Culture, Blood [[id number]] Collected: 05/06/19649 Order Status: Completed Lab Status: Preliminary result Updated: 05/06/191910 Specimen: Peripheral Blood Culture No growth: Monitored continually by instrument for 5 days Culture, Blood [[id number]] Collected: 05/06/19649 Order Status: Completed Lab Status: Preliminary result Updated: 05/06/191910 Specimen: Peripheral Blood Culture No growth: Monitored continually by instrument for 5 days Culture, Wound, Smear, w/Anaerobe [[id number]] Collected: 05/04/192208 Order Status: Sent Lab Status: In process Updated: 05/07/191104 Specimen: Tissue from Toe, Third, Left Narrative: The following orders were created for panel order Culture, Wound, Smear, w/Anaerobe. Procedure Abnormality Status --------- ------ Culture, Wound, Smear[[id number]] Final result Culture, Anaerobic[[id number]] Normal Preliminary result Please view results for these tests on the individual orders. Culture, Wound, Smear [[id number]] (Susceptibility) Collected: 05/04/192208 Order Status: Completed Lab Status: Final result Updated: 05/07/19 1105 Specimen: Tissue from Toe, Third, Left Culture 2+ Enterobacter cloacae ssp cloacae Comment: This organism is known to possess inducible beta-lactamases. Isolates may become resistant to all cephalosporins after initiation of therapy. Avoid beta-lactam/beta-lactama se inhibitory combinations. Gram Stain Result 1+ White Blood Cells 2+ Epithelial cells 1+ Gram negative rods Susceptibility Enterobacter cloacae ssp cloacae (1) Antibiotic Interpretation Microscan Method Status Cefazolin Resistant >=64 ug/mL Not Specified Final Cefoxitin Resistant >=64 ug/mL Not Specified Final Ceftazidime Sensitive <=1 ug/mL Not Specified Final Ceftriaxone Sensitive <=1 ug/mL Not Specified Final Ciprofloxacin Sensitive <=0.25 ug/mL Not Specified Final Ertapenem Sensitive <=0.5 ug/mL Not Specified Final Gentamicin Sensitive <=1 ug/mL Not Specified Final Meropenem Sensitive <=0.25 ug/mL Not Specified Final Piperacillin + Tazobactam Sensitive <=4 ug/mL Not Specified Final Tobramycin Sensitive <=1 ug/mL Not Specified Final Trimethoprim + Sulfamethoxazole Sensitive <=20 ug/mL Not Specified Final Culture, Anaerobic [[id number]] (Normal) Collected: 05/04/192208 Order Status: Completed Lab Status: Preliminary result Updated: 05/07/19 1456 Specimen: Tissue from Toe, Third, Left Culture Culture in progress... Culture, Blood [[id number]] Collected: 05/04/19 1631 Order Status: Completed Lab Status: Preliminary result Updated: 05/07/19 164 Specimen: Blood from Line Culture No growth: Monitored continually by instrument for 5 days Culture, Blood [[id number]] (Abnormal) Collected: 05/04/19 1618 Order Status: Completed Lab Status: Preliminary result Updated: 05/07/19 0709 Specimen: Peripheral Blood Culture Positive Blood Culture Staphylococcus coagulase negative Comment: Probable contaminant Identification to follow. Gram Stain Result Gram positive cocci in clusters Comment: 1 of 4 bottles positive. Critical Result called to and read back by Connie Alonzo on 05/06/2019 at 5:05 AM by Juan Becerra. Blood Culture GP Pathogen Panel, PCR [[id number]] (Abnormal) Collected: 05/04/19 1618 Order Status: Completed Lab Status: Final result Updated: 05/06/19 0749 Specimen: Peripheral Blood Staphylococcus species, DNA Detected Comment: Critical Result called to and read back by Soraya Loredo, Syd on 05/06/2019 at 7:45 AM by Iván Mary. Staphylococcus aureus, DNA Not Detected mecA (methicillin-resistance gene), DNA N/A Staphylococcus epidermidis, DNA Not Detected Staphylococcus lugdunensis, DNA Not Detected Enterococcus faecalis, DNA Not Detected Enterococcus faecium, DNA Not Detected Moustapha (vancomycin-resistance gene), DNA N/A Streptococcus species, DNA Not Detected Streptococcus agalactiae (Group B), DNA Not Detected Streptococcus anginosus, DNA Not Detected Streptococcus pneumonia/mitis, DNA Not Detected Streptococcus pyogenes (Group A), DNA Not Detected Listeria species, DNA Not Detected vanB (vancomycin-resistance gene), DNA N/A Assessment: Paul Bunn is a 73 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 Reviewed exam, surgery and plan with patient. We have previously discussed the need to cont inue [facility] to ensure no further treatments a re needed. He reports he is being actively followed and currently has care in place but unab le to articulate any particulars of that plan. Will closely monitor wound and continue with antibiotics to give best chance for healing. Plan: The wound dressing is left in place. Will change tomorrow AM Continue IV anitbiotics. Continue with 6 week course. To avoid forefoot weight bearing. Okay to heel weight bear Will visit tomorrow AM Kaylyn Coreas DPM 5:26 PM; 05/07/2019 Ignacio Gardner RN - 05/07/2019 2:31 PM PSTVascular Access Team Note- Following Infusion Nurses Society standards of care; a BARD 4fr single-lumen PICC inserted x 1stick, using Ultrasound/ modified Seldinger technique. PICC advanced to 38cm and confirme d by cxr. Dr lucio reads cxr as a courtesy- no radiologist in house at this time. Ok to use. All lumens draw bright red blood briskly and flush easily with normal saline. SBAR report t paige Dubon RN who continues care. Thank you for this referral. Electronically signed by: Shari De La Rosa RN 05/07/2019 2:31 PM Jaleesa Peck ed, MD - 05/07/2019 11:53 AM PSTFormatting of this note might be different from the rut gitrixie. [place], [place] HOSPITALIST PROGRESS NOTE Patient: Paul Bunn : 1945: Age: 73 y.o. MedRec: [id number] Admission date: 05/04/2019 Hospital day # : 3 Physician author: Efraín Wright MD Today: 05/07/2019 Assessment and Hospital Course Active Hospital Problems Diagnosis Cellulitis of third toe, left Gangrene of toe of left foot Smoker - Daily Hyponatremia Alcohol use, Habitual Peripheral vascular disease Hypertension GERD (gastroesophageal reflux disease) Diabetes mellitus type II, ORAL Control Resolved Hospital Problems No resolved problems to display. 73 y.o. male with a history of hypertension, hyperlipidemia, diabetes mellitus type 2 with neuropathy, current everyday smoker, peripheral vascular disease with stents in left lower e xtremity, right-sided AKA, GERD, depression, PTSD, who presented for evaluation of ulceratio n s, he noted there was a small ulceration at the base. He has been going to wound care up until 1 month ago, when he was transition to wound care at home which his daughter was doing . He reported that things look good 2 weeks ago, and they start doing wound care. Last few days, he noted that his third digit became very swollen and erythematous, then to started d arkening, he developed deep ulceration that went all the way to the bone. [facility], and he was referred to the ER for further evaluation. On review of systems , he denies any fever, chills, sweats. He denies any chest pain, shortness of breath, palpi tations. He denies any nausea, vomiting, abdominal pain or urinary symptoms. Vital signs in the ER, initially with hypertension, currently stable. Laboratory studies s ignificant for no leukocytosis, stable hemoglobin, normal renal function. Noted mild hypona tremia. Elevated ALP. Blood cultures drawn, x-ray of foot performed. Podiatry was consult ed, patient will be taken to the OR tonight for further amputation. Wound cultures will be sent.. Plan 73 y.o. male with PMH significant for previous right AKA, PAD, left first and second toe am putations presented with necrotic wound of the third toe with bone exposed, redness/swelling of fourth toe # Gangrene of left third toe with exposed bone, e/o infection and osteomyelitis # Cellulitis of left fourth toe - s/p Left 3rd/4th/[address]th amputation by Dr. Coreas 05/04 - deep Cx growing LF and NLF GNB, BCx 05/04 05/27 bottles Coag negative Staph, likely contami nant, repeat BCx NGTD - HDS - pain control - wound care: needs daily dressing changes as per Dr. Coreas - Vanc discontinued, Continue Zosyn - PICC line ordered - notified to set up home IV abx infusion - Patient does not want to wait for the cultures to be finalized. Script for Rocephin give n to CM. Will switch abx if needed after discharge based on final cultures # PAD s/p prior right AKA, stents in LE, left 1st/2nd toe amputation - cont asa/plavix/statin - continues to smoke, counseled to quit # HTN - continue home meds # NIDDM - holding metformin - cont SSI # HLD - cont statin # Smoker - 1-1/2 ppd - cont nicotine patch and prn lozenges PICC Line care: Regular flushing of the PICC is required to prevent or delay catheter occlusion related to fibrin formation or drug precipitate. This is accomplished by flushing the PICC with 20mLs n ormal saline following drug administration or blood sampling and every 7 days when not in us e. The flushing technique should be a start/stop method, otherwise known as turbulent flu sh . This type of flushing technique helps clear the hays of the PICC line more efficient ly then a straight flush. If blood is noted in the catheter or at the hub, flush the PICC wi th 20mLs normal saline. Always close the clamp of the PICC line after flushing. This will he lp to prevent backward flow of blood into the catheter during times of changing intrathoraci c pressure (e.g. vigorous coughing, vomiting). Scrub the hub of the adaptor with a 15 second juicing technique using an alcohol swab Flush through the adaptor with two 10mLs preservative free pre filled normal saline syringe s using turbulent flushing technique Close the clamp during the last mL Disconnect the syringe Subjective CC f/u left toe gangrene Patient reports that he has extremely important 'personal work' tomorrow. He wants to get d ischarged today. Pain well controlled. ROS See above Exam GA: NAD, AAOX3 Neck: no JVD, supple Cardiac: rrr, no m/g/r Lung: CTAB, normal respiratory effort Abdomen: soft, nt/nd, nabs Ext: Right AKA noted, left foot dressing in place Allergies: Allergies Allergen Reactions Ketamine Other (See Comments) agitation Current Medications: Current Facility-Administered Medications Medication Dose Route Frequency Provider Last Rate Last Dose acetaminophen (TYLENOL) tablet 650 mg 650 mg Oral Q4H PRN Val Jara MD aspirin chewable tablet 81 mg 81 mg Oral Daily Val Jara MD 81 mg at 911 atorvaSTATin (LIPITOR) tablet 10 mg 10 mg Oral Nightly Val Jara MD 10 mg at 05/06/192052 calcium carbonate (TUMS) chewable tablet 1,000 mg 1,000 mg Oral Q4H PRN Val bautista MD 1,000 mg at 05/06/191814 clopidogrel (PLAVIX) tablet 75 mg 75 mg Oral Daily Val Jara MD 75 mg a t 05/07/19911 dextrose 50% injection 12.5-25 g 12.5-25 g Intravenous PRN Val Jara MD And dextrose 10% (D10W) infusion Intravenous Continuous PRN Val Jara MD docusate sodium (COLACE) capsule 100 mg 100 mg Oral BID PRN Val Jara MD enoxaparin (LOVENOX) 40 mg/0.4 mL injection 40 mg 40 mg Subcutaneous Daily Val Jara MD gabapentin (NEURONTIN) capsule 600 mg 600 mg Oral TID Val Jara MD 600 mg at 05/07/19 1427 HYDROcodone-acetaminophen (NORCO) 10-325 mg per tablet 1 tablet 1 tablet Oral Q4H PRN Efraín Wright MD 1 tablet at 05/07/19 1816 insulin lispro (humaLOG KWIKPEN) injection (pen) 0-6 Units 0-6 Units Subcutaneous 4x D aily WC and HS Val Jaar MD lisinopril (PRINIVIL, ZESTRIL) tablet 10 mg 10 mg Oral Daily Val Jara MD 10 mg at 05/07/19 0912 melatonin tablet 3 mg 3 mg Oral Nightly PRN Juli Villarreal MD metoprolol succinate (TOPROL-XL) ER tablet 25 mg 25 mg Oral Daily Val sahu MD 25 mg at 05/07/19 0912 morphine injection 1-4 mg 1-4 mg Intravenous Q3H PRN Val Jara MD 4 mg at 05/07/19 1611 nicotine (NICODERM) 21 mg/24 hr 1 patch 1 patch Transdermal Daily Efraín Wright MD 1 patch at 05/07/19 0913 nicotine polacrilex (COMMIT) lozenge 2-4 mg 2-4 mg Oral PRN Efraín Wright MD 4 mg at 05/06/192052 ondansetron (ZOFRAN) injection 4 mg 4 mg Intravenous Q6H PRN Val Jara MD 4 mg at 05/06/192017 pantoprazole (PROTONIX) DR tablet 40 mg 40 mg Oral QAM AC Val Jara MD 40 mg at 05/07/19 0652 piperacillin-tazobactam (ZOSYN) 3.375 g in sodium chloride 0.9% 100 mL IVPB 3.375 g In travenous Q8H Val Jara MD 25 mL/hr at 05/07/19 1213 3.375 g at 05/07/19 1213 polyethylene glycol (MIRALAX) powder 17 g 17 g Oral Daily PRN Merrill Snow promethazine (PHENERGAN) (IV ONLY) injection 6.25 mg 6.25 mg Intravenous Q6H PRN Damaris Villarreal MD promethazine (PHENERGAN) tablet 12.5 mg 12.5 mg Oral Q6H PRN Juli Villarreal MD 12.5 mg at 05/07/19 0652 senna (SENOKOT) tablet 8.6 mg 8.6 mg Oral BID PRN Val Jara MD traZODone (DESYREL) tablet 150 mg 150 mg Oral Nightly PRN Vla Jara MD Current Infusions: dextrose 10% Objective Data Point of care glucose Recent Labs Lab 05/07/19 1218 05/07/19 0654 05/06/197 05/06/19 1633 05/06/19 1217 05/05/19 2019 POCGLU 103 101 130* 144* 142* 134* Labs last 24 hours Recent Results (from the past 24 hour(s)) POC Glucose Collection Time: 05/06/19 8:27 PM Result Value Ref Range Glucose, POC 130 (H) 70 - 109 mg/dL CBC no Differential Collection Time: 05/07/19 5:03 AM Result Value Ref Range WBC 9.9 4.0 - 11.0 K/uL RBC 4.76 4.30 - 5.70 M/uL Hemoglobin 14.9 13.5 - 18.0 g/dL Hematocrit 44.3 40.0 - 51.0 % MCV 93.1 83.0 - 101.0 fL MCH 31.3 28.0 - 35.0 pg MCHC 33.6 32.0 - 36.0 g/dL RDW-CV 13.2 <15.0 % RDW-SD 45.5 35.1 - 46.3 fL Platelet Count 332 140 - 440 K/uL MPV 12.0 6.5 - 12.4 fL % nRBC 0 0 - 2 per 100 WBCs Absolute nRBC 0.00 0.00 - 0.01 K/uL Basic Metabolic Panel Collection Time: 05/07/19 5:03 AM Result Value Ref Range Na 135 (L) 136 - 145 mmol/L K 3.6 3.4 - 5.1 mmol/L Cl 103 98 - 107 mmol/L CO2 25 20 - 31 mmol/L Anion Gap 7 3 - 16 mmol/L Glucose 113 (H) 60 - 106 mg/dL BUN 6 (L) 9 - 23 mg/dL Creatinine 0.64 (L) 0.70 - 1.30 mg/dL eGFR if not >60 >=60 mL/min/1.73m2 Calcium 8.8 8.7 - 10.4 mg/dL BUN/Creatinine Ratio 9.4 POC Glucose Collection Time: 05/07/19 6:54 AM Result Value Ref Range Glucose, POC 101 70 - 109 mg/dL POC Glucose Collection Time: 05/07/19 12:18 PM Result Value Ref Range Glucose, POC 103 70 - 109 mg/dL Micro results Microbiology Results (72 hrs) Procedure Component Value Units Date/Time Culture, Blood [[id number]] Collected: 05/06/19649 Order Status: Completed Lab Status: Preliminary result Updated: 05/06/191910 Specimen: Peripheral Blood Culture No growth: Monitored continually by instrument for 5 days Culture, Blood [[id number]] Collected: 05/06/19649 Order Status: Completed Lab Status: Preliminary result Updated: 05/06/191910 Specimen: Peripheral Blood Culture No growth: Monitored continually by instrument for 5 days Culture, Wound, Smear, w/Anaerobe [[id number]] Collected: 05/04/192208 Order Status: Sent Lab Status: In process Updated: 05/07/191104 Specimen: Tissue from Toe, Third, Left Narrative: The following orders were created for panel order Culture, Wound, Smear, w/Anaerobe. Procedure Abnormality Status --------- ------ Culture, Wound, Smear[[id number]] Final result Culture, Anaerobic[[id number]] Normal Preliminary result Please view results for these tests on the individual orders. Culture, Wound, Smear [[id number]] (Susceptibility) Collected: 05/04/192208 Order Status: Completed Lab Status: Final result Updated: 05/07/191104 Specimen: Tissue from Toe, Third, Left Culture 2+ Enterobacter cloacae ssp cloacae Comment: This organism is known to possess inducible beta-lactamases. Isolates may become resistant to all cephalosporins after initiation of therapy. Avoid beta-lactam/beta-lactama se inhibitory combinations. Gram Stain Result 1+ White Blood Cells 2+ Epithelial cells 1+ Gram negative rods Susceptibility Enterobacter cloacae ssp cloacae (1) Antibiotic Interpretation Microscan Method Status Cefazolin Resistant >=64 ug/mL Not Specified Final Cefoxitin Resistant >=64 ug/mL Not Specified Final Ceftazidime Sensitive <=1 ug/mL Not Specified Final Ceftriaxone Sensitive <=1 ug/mL Not Specified Final Ciprofloxacin Sensitive <=0.25 ug/mL Not Specified Final Ertapenem Sensitive <=0.5 ug/mL Not Specified Final Gentamicin Sensitive <=1 ug/mL Not Specified Final Meropenem Sensitive <=0.25 ug/mL Not Specified Final Piperacillin + Tazobactam Sensitive <=4 ug/mL Not Specified Final Tobramycin Sensitive <=1 ug/mL Not Specified Final Trimethoprim + Sulfamethoxazole Sensitive <=20 ug/mL Not Specified Final Culture, Anaerobic [[id number]] (Normal) Collected: 05/04/192208 Order Status: Completed Lab Status: Preliminary result Updated: 05/07/19 8280 Specimen: Tissue from Toe, Third, Left Culture Culture in progress... Radiology results Xr Chest Ap Portable Result Date: 05/07/2019 XR CHEST AP PORTABLE 05/07/2019 1:42 PM HISTORY: picc line placement. COMPARISON: 7 Findings: The bilateral lungs are clear with no evidence for pleural effusion or pneumotho rax. Heart size is within normal limits. Pulmonary vasculature is within normal limits. Aort a is normal. Mediastinum is unremarkable. No acute osseous or soft tissue abnormality identi fied. No acute intrathoracic abnormality identified. Right upper extremity approach PICC tip term inates in the mid superior vena cava. Dictated and Signed by: MD Bell Aguiarmountain point medical centery signed: 05/07/2019 3:38 PM Vitals Ranges: Temp: [35.8 C (96.5 F)-37 C (98.6 F)] 36.7 C (98 F) Pulse: [65-86] 76 Resp: [19-21] 21 BP: (130-160)/(60-70) 130/64 Vitals: Temp: 36.7 C (98 F) BP: 130/64 Pulse: 76 Resp: 21 SpO2: 96 % SpO2 96 % on room air at flow rate L/min Efraín Wright MD 05/07/2019 7:53 PM [facility] Portions of this chart may have been created with [employer] voice recognition software. Occasi onal wrong-word or sound-alike substitutions may have occurred due to the inherent leigh itations of voice recognition software. Please read the chart carefully and recognize, using context, where these substitutions have occurred Liv, Efraín Hernandez MD - 05/06/2019 5:35 PM PSTFormatting of this note might be different from the origin al. [facility] HOSPITALIST PROGRESS NOTE Patient: Paul Bunn : 1945: Age: 73 y.o. MedRec: [id number] Admission date: 05/04/2019 Hospital day # : 2 Physician author: Efraín Wright MD Today: 05/06/2019 Assessment and Hospital Course Active Hospital Problems Diagnosis Cellulitis of third toe, left Gangrene of toe of left foot Smoker - Daily Hyponatremia Alcohol use, Habitual Peripheral vascular disease Hypertension GERD (gastroesophageal reflux disease) Diabetes mellitus type II, ORAL Control Resolved Hospital Problems No resolved problems to display. 73 y.o. male with a history of hypertension, hyperlipidemia, diabetes mellitus type 2 with neuropathy, current everyday smoker, peripheral vascular disease with stents in left lower e xtremity, right-sided AKA, GERD, depression, PTSD, who presented for evaluation of ulceratio n s, he noted there was a small ulceration at the base. He has been going to wound care up until 1 month ago, when he was transition to wound care at home which his daughter was doing . He reported that things look good 2 weeks ago, and they start doing wound care. Last few days, he noted that his third digit became very swollen and erythematous, then to started d arkening, he developed deep ulceration that went all the way to the bone. [facility] evaluated [facility], and he was referred to the ER for further evaluation. On review of systems , he denies any fever, chills, sweats. He denies any chest pain, shortness of breath, palpi tations. He denies any nausea, vomiting, abdominal pain or urinary symptoms. Vital signs in the ER, initially with hypertension, currently stable. Laboratory studies s ignificant for no leukocytosis, stable hemoglobin, normal renal function. Noted mild hypona tremia. Elevated ALP. Blood cultures drawn, x-ray of foot performed. Podiatry was consult ed, patient will be taken to the OR tonight for further amputation. Wound cultures will be sent.. Plan 73 y.o. male with PMH significant for previous right AKA, PAD, left first and second toe am putations presented with necrotic wound of the third toe with bone exposed, redness/swelling of fourth toe # Gangrene of left third toe with exposed bone and e/o infection # Cellulitis of left fourth toe - s/p Left 3rd//[address] Coreas 05/04 - on Vanc and Zosyn - deep Cx growing LF and NLF GNB, BCx 05/04 1 bottles growing GPC in clusters, repeat BCx have been ordered - HDS - pain control - wound care - f/u final ID and Sens from deep Cx, f/u BCx ID ans Sens, narrow abx accordingly - will likely need PICC and IV abx at discharge # PAD s/p prior right AKA, stents in LE, left 1st/2nd toe amputation - cont asa/plavix/statin - continues to smoke, counseled to quit # HTN - continue home meds # NIDDM - holding metformin - cont SSI # HLD - cont statin # Smoker - 1-05/25 ppd - counseled again today to quit, patient willing - cont nicotine patch - added nicotine lozenges for craving PT/OT Subjective CC f/u left toe gangrene NAEO, pain well controlled, wants to get discharged home soon, counseled to quit smoking, p atient now willing, no other complaints ROS See above Exam GA: NAD, AAOX3 Neck: no JVD, supple Cardiac: rrr, no m/g/r Lung: CTAB, normal respiratory effort Abdomen: soft, nt/nd, nabs Ext: Right AKA noted, left foot dressing in place Allergies: Allergies Allergen Reactions Ketamine Other (See Comments) agitation Current Medications: Current Facility-Administered Medications Medication Dose Route Frequency Provider Last Rate Last Dose acetaminophen (TYLENOL) tablet 650 mg 650 mg Oral Q4H PRN Val Jara MD aspirin chewable tablet 81 mg 81 mg Oral Daily Val Jara MD 81 mg at 0951 atorvaSTATin (LIPITOR) tablet 10 mg 10 mg Oral Nightly Val Jara MD 10 mg at 05/05/192009 calcium carbonate (TUMS) chewable tablet 1,000 mg 1,000 mg Oral Q4H PRN Val bautista MD clopidogrel (PLAVIX) tablet 75 mg 75 mg Oral Daily Val Jara MD 75 mg a t 05/06/19950 dextrose 50% injection 12.5-25 g 12.5-25 g Intravenous PRN Val Jara MD And dextrose 10% (D10W) infusion Intravenous Continuous PRN Val Jara MD docusate sodium (COLACE) capsule 100 mg 100 mg Oral BID PRN Val Jara MD enoxaparin (LOVENOX) 40 mg/0.4 mL injection 40 mg 40 mg Subcutaneous Daily Vla Jara MD gabapentin (NEURONTIN) capsule 600 mg 600 mg Oral TID Val Jara MD 600 mg at 05/05/192009 HYDROcodone-acetaminophen (NORCO) 10-325 mg per tablet 1 tablet 1 tablet Oral Q4H PRN Efraín Wright MD 1 tablet at 05/06/19 0950 insulin lispro (humaLOG KWIKPEN) injection (pen) 0-6 Units 0-6 Units Subcutaneous 4x D aily WC and HS Val Jara MD lisinopril (PRINIVIL, ZESTRIL) tablet 10 mg 10 mg Oral Daily Val Jara MD 10 mg at 05/06/19 0952 melatonin tablet 3 mg 3 mg Oral Nightly PRN Juli Villarreal MD metoprolol succinate (TOPROL-XL) ER tablet 25 mg 25 mg Oral Daily Val sahu MD 25 mg at 05/06/19 0951 morphine injection 1-4 mg 1-4 mg Intravenous Q3H PRN Val Jara MD 4 mg at 05/06/19 1638 nicotine (NICODERM) 21 mg/24 hr 1 patch 1 patch Transdermal Daily Efraín Wright MD 1 patch at 05/06/19 0950 nicotine polacrilex (COMMIT) lozenge 2-4 mg 2-4 mg Oral PRN Efraín Wright MD ondansetron (ZOFRAN) injection 4 mg 4 mg Intravenous Q6H PRN Val Jara MD 4 mg at 05/06/19 1436 pantoprazole (PROTONIX) DR tablet 40 mg 40 mg Oral QAM AC Val Jara MD 40 mg at 05/06/19 0627 piperacillin-tazobactam (ZOSYN) 3.375 g in sodium chloride 0.9% 100 mL IVPB 3.375 g In travenous Q8H Val Jara MD 25 mL/hr at 05/06/19 1300 3.375 g at 05/06/19 1300 polyethylene glycol (MIRALAX) powder 17 g 17 g Oral Daily PRN Merrill Snow senna (SENOKOT) tablet 8.6 mg 8.6 mg Oral BID PRN Val Jara MD sodium chloride 0.9% (NS) infusion Intravenous Continuous Val Jara MD 7 5 mL/hr at 05/06/19 0955 traZODone (DESYREL) tablet 150 mg 150 mg Oral Nightly PRN Val Jara MD vancomycin 1,250 mg in sodium chloride 0.9% 250 mL IVPB 1,250 mg Intravenous Q12H Anika York PharmD 175 mL/hr at 05/06/19 1456 1,250 mg at 05/06/19 1456 vancomycin per pharmacy Other Pharmacy Consult Val Jara MD Current Infusions: dextrose 10% sodium chloride 0.9% 75 mL/hr at 05/06/19 0955 Objective Data Point of care glucose Recent Labs Lab 05/06/19 1633 05/06/19 1217 05/05/19 2019 05/05/19 1804 05/04/19 2248 05/04/19 2040 POCGLU 144* 142* 134* 178* 121* 106 Labs last 24 hours Recent Results (from the past 24 hour(s)) POC Glucose Collection Time: 05/05/19 6:04 PM Result Value Ref Range Glucose, POC 178 (H) 70 - 109 mg/dL POC Glucose Collection Time: 05/05/19 8:19 PM Result Value Ref Range Glucose, POC 134 (H) 70 - 109 mg/dL CBC no Differential Collection Time: 05/06/19 6:50 AM Result Value Ref Range WBC 9.5 4.0 - 11.0 K/uL RBC 4.32 4.30 - 5.70 M/uL Hemoglobin 13.9 13.5 - 18.0 g/dL Hematocrit 41.3 40.0 - 51.0 % MCV 95.6 83.0 - 101.0 fL MCH 32.2 28.0 - 35.0 pg MCHC 33.7 32.0 - 36.0 g/dL RDW-CV 13.5 <15.0 % RDW-SD 47.8 (H) 35.1 - 46.3 fL Platelet Count 287 140 - 440 K/uL MPV 11.8 6.5 - 12.4 fL % nRBC 0 0 - 2 per 100 WBCs Absolute nRBC 0.00 0.00 - 0.01 K/uL Basic Metabolic Panel Collection Time: 05/06/19 6:50 AM Result Value Ref Range Na 135 (L) 136 - 145 mmol/L K 3.7 3.4 - 5.1 mmol/L Cl 106 98 - 107 mmol/L CO2 24 20 - 31 mmol/L Anion Gap 5 3 - 16 mmol/L Glucose 122 (H) 60 - 106 mg/dL BUN 6 (L) 9 - 23 mg/dL Creatinine 0.69 (L) 0.70 - 1.30 mg/dL eGFR if not >60 >=60 mL/min/1.73m2 Calcium 8.2 (L) 8.7 - 10.4 mg/dL BUN/Creatinine Ratio 8.7 POC Glucose Collection Time: 05/06/19 12:17 PM Result Value Ref Range Glucose, POC 142 (H) 70 - 109 mg/dL Vancomycin, Trough Collection Time: 05/06/19 1:19 PM Result Value Ref Range Date of Last Dose Time of Last Dose Vancomycin Trough 16.9 (H) 5.0 - 10.0 ug/mL POC Glucose Collection Time: 05/06/19 4:33 PM Result Value Ref Range Glucose, POC 144 (H) 70 - 109 mg/dL Micro results Microbiology Results (72 hrs) Procedure Component Value Units Date/Time Culture, Blood [[id number]] Collected: 05/06/19649 Order Status: Sent Lab Status: In process Updated: 05/06/19655 Specimen: Peripheral Blood Culture, Blood [[id number]] Collected: 05/06/19649 Order Status: Sent Lab Status: In process Updated: 05/06/19655 Specimen: Peripheral Blood Culture, Wound, Smear, w/Anaerobe [[id number]] Collected: 05/04/192208 Order Status: Sent Lab Status: In process Updated: 05/04/192216 Specimen: Tissue from Toe, Third, Left Narrative: The following orders were created for panel order Culture, Wound, Smear, w/Anaerobe. Procedure Abnormality Status --------- ------ Culture, Wound, Smear[[id number]] Preliminary result Culture, Anaerobic[[id number]] In process Please view results for these tests on the individual orders. Culture, Wound, Smear [[id number]] Collected: 05/04/192208 Order Status: Completed Lab Status: Preliminary result Updated: 05/06/19 122 Specimen: Tissue from Toe, Third, Left Culture 2+ Lactose Fermenting Gram Negative Bacilli Comment: Identification and susceptibility to follow. 1+ Non Fermenting Gram Negative Surya Comment: Identification and susceptibility to follow. Gram Stain Result 1+ White Blood Cells 2+ Epithelial cells 1+ Gram negative rods Culture, Anaerobic [[id number]] Collected: 05/04/192208 Order Status: Resulted Lab Status: In process Updated: 05/04/192216 Specimen: Tissue from Toe, Third, Left Culture, Blood [[id number]] Collected: 05/04/19 1631 Order Status: Completed Lab Status: Preliminary result Updated: 05/05/19 0441 Specimen: Blood from Line Culture No growth: Monitored continually by instrument for 5 days Culture, Blood [[id number]] (Abnormal) Collected: 05/04/19 1618 Order Status: Completed Lab Status: Preliminary result Updated: 05/06/19 0746 Specimen: Peripheral Blood Culture Positive Blood Culture Gram Stain Result Gram positive cocci in clusters Comment: 1 of 4 bottles positive. Critical Result called to and read back by Connie Alonzo on 05/06/2019 at 5:05 AM by Juan Becerra. Blood Culture GP Pathogen Panel, PCR [[id number]] (Abnormal) Collected: 05/04/19 1618 Order Status: Completed Lab Status: Final result Updated: 05/06/19 0749 Specimen: Peripheral Blood Staphylococcus species, DNA Detected Comment: Critical Result called to and read back by Soraya Loredo PharmD on 05/06/2019 at 7:45 AM by Iván Mary. Staphylococcus aureus, DNA Not Detected mecA (methicillin-resistance gene), DNA N/A Staphylococcus epidermidis, DNA Not Detected Staphylococcus lugdunensis, DNA Not Detected Enterococcus faecalis, DNA Not Detected Enterococcus faecium, DNA Not Detected Moustapha (vancomycin-resistance gene), DNA N/A Streptococcus species, DNA Not Detected Streptococcus agalactiae (Group B), DNA Not Detected Streptococcus anginosus, DNA Not Detected Streptococcus pneumonia/mitis, DNA Not Detected Streptococcus pyogenes (Group A), DNA Not Detected Listeria species, DNA Not Detected vanB (vancomycin-resistance gene), DNA N/A Radiology results Xr Foot Left 2 Vw Result Date: 05/05/2019 CLINICAL INFORMATION: surgery. COMPARISON: 05/04/2019 FINDINGS: 2 views of the left foot. I nterval amputation of the 3rd, 4th, and 5th digits distal to the metatarsals. Chronic 1st mi d metatarsal dictation changes. Peripheral vascular calcifications. Amputation changes. Dictated and Signed by: Shemar Mccoy MD Electronically signed: 04/23 8:29 AM Vitals Ranges: Temp: [35.3 C (95.5 F)-37.7 C (99.9 F)] 35.3 C (95.5 F) Pulse: [65-109] 65 Resp: [20] 20 BP: (138-155)/(64-78) 145/68 Vitals: Temp: 35.3 C (95.5 F) BP: 145/68 Pulse: 65 Resp: 20 SpO2: 100 % SpO2 100 % on room air at flow rate L/min Efraín Wright MD 05/06/2019 5:35 PM [facility] Portions of this chart may have been created with [employer] voice recognition software. Occasi onal wrong-word or sound-alike substitutions may have occurred due to the inherent leigh itations of voice recognition software. Please read the chart carefully and recognize, using context, where these substitutions have occurred aldyang Lizette Efren , PharmD - 05/06/2019 12:41 PM PSTFormatting of this note might be different from the origin al. VANCOMYCIN PER PHARMACY PROTOCOL: AMS/Drug Name - Vanco and Zosyn Patient: Paul Bunn [id number] Admit: 05/04/2019 3:30 PM RELEVANT ALLERGIES: no abx allergy 73 yrs old male patient admitted on 05/04/2019 for left foot with third digit distal necro sis, deep ulceration to the bone and cellulitis. Patient is receiving vancomycin starting o n 05/04/19 for osteomyelitis. Patient has a past medical history of Arrhythmia, Arthritis, Carpal tunnel syndrome, Constipation, chronic, Dental caries, Depression, Diabetes mellitus (HCC), Diabetic neuropathy (HCC), Epidermal cyst of face, Ganglion cyst, GERD (gastroesophag eal reflux disease), Hyperlipidemia, Hypertension, Hypomagnesemia, Impotence, Insomnia, Neur opathy, Nicotine dependence, Osteoarthrosis involving multiple sites, Peripheral vascular di sease (HCC), PTSD (post-traumatic stress disorder), PTSD (post-traumatic stress disorder), R aised prostate specific antigen, Skin ulcer (HCC), Sleep disorder, Umbilical hernia, and Uri nary frequency. . Risk factors for MDR organisms include recent healthcare contact and antib iotic use (hospitalization jan 2019). HPI: presented for evaluation of ulcerations, he noted there was a small ulceration at the base. He has been going to wound care up until 1 month ago, when he was transition to wound care at home which his daughter was doing. He reported that things look good 2 weeks ago, and they start doing wound care. Last few days, he noted that his third digit became very s wollen and erythematous, then to started darkening, he developed deep ulceration that went a ll the way to the bone. [facility] and he was referred to [facility] for further evaluation. The third toe is concerning for gangrene with exposed bone and will require surgical amputa tion. The fourth toe exam is concerning as well. Toes were amputated on 05/04/19. Antimicrobials - Current Antibiotic Dates of Therapy Vanco 05/04- Zosyn 05/04- Antimicrobials - Discontinued Antibiotic Dates of Therapy Historical Vancomycin dosing (previous & current encounter): Jan 2019 SCr 0.93, 0.84 vanco mycin 1250 mg q12hr with a trough of 14.5 Micro/Cultures/Diagnostics: Microbiology Results (Last 14 Days by Collected Date with Culture/Sensitivity) Procedure Component Value Units Date/Time Culture, Blood [[id number]] Collected: 05/06/19649 Order Status: Sent Lab Status: In process Updated: 05/06/19655 Specimen: Peripheral Blood Culture, Blood [[id number]] Collected: 05/06/19649 Order Status: Sent Lab Status: In process Updated: 05/06/19655 Specimen: Peripheral Blood Culture, Wound, Smear, w/Anaerobe [[id number]] Collected: 05/04/192208 Order Status: Sent Lab Status: In process Updated: 05/04/192216 Specimen: Tissue from Toe, Third, Left Narrative: The following orders were created for panel order Culture, Wound, Smear, w/Anaerobe. Procedure Abnormality Status --------- ------ Culture, Wound, Smear[[id number]] Preliminary result Culture, Anaerobic[[id number]] In process Please view results for these tests on the individual orders. Culture, Wound, Smear [[id number]] Collected: 05/04/192208 Order Status: Completed Lab Status: Preliminary result Updated: 05/06/19 1220 Specimen: Tissue from Toe, Third, Left Culture 2+ Lactose Fermenting Gram Negative Bacilli Comment: Identification and susceptibility to follow. 1+ Non Fermenting Gram Negative Surya Comment: Identification and susceptibility to follow. Gram Stain Result 1+ White Blood Cells 2+ Epithelial cells 1+ Gram negative rods Culture, Anaerobic [[id number]] Collected: 05/04/192208 Order Status: Resulted Lab Status: In process Updated: 05/04/192216 Specimen: Tissue from Toe, Third, Left Culture, Blood [[id number]] Collected: 05/04/19 1631 Order Status: Completed Lab Status: Preliminary result Updated: 05/05/19 0441 Specimen: Blood from Line Culture No growth: Monitored continually by instrument for 5 days Culture, Blood [[id number]] (Abnormal) Collected: 05/04/19 1618 Order Status: Completed Lab Status: Preliminary result Updated: 05/06/19 0746 Specimen: Peripheral Blood Culture Positive Blood Culture Gram Stain Result Gram positive cocci in clusters Comment: 1 of 4 bottles positive. Critical Result called to and read back by Connie Alonzo on 05/06/2019 at 5:05 AM by Juan Becerra. Blood Culture GP Pathogen Panel, PCR [[id number]] (Abnormal) Collected: 05/04/19 161 Order Status: Completed Lab Status: Final result Updated: 05/06/19 0749 Specimen: Peripheral Blood Staphylococcus species, DNA Detected Comment: Critical Result called to and read back by Soraya Loredo PharmD on 05/06/2019 at 7:45 AM by Iván Mary. Staphylococcus aureus, DNA Not Detected mecA (methicillin-resistance gene), DNA N/A Staphylococcus epidermidis, DNA Not Detected Staphylococcus lugdunensis, DNA Not Detected Enterococcus faecalis, DNA Not Detected Enterococcus faecium, DNA Not Detected Moustapha (vancomycin-resistance gene), DNA N/A Streptococcus species, DNA Not Detected Streptococcus agalactiae (Group B), DNA Not Detected Streptococcus anginosus, DNA Not Detected Streptococcus pneumonia/mitis, DNA Not Detected Streptococcus pyogenes (Group A), DNA Not Detected Listeria species, DNA Not Detected vanB (vancomycin-resistance gene), DNA N/A Relevant cultures from previous admits: Date Source Organisms Sensitivities 02/17/19 & 02/16/19 Toe, second, left tissue MSSA pansensitive 03/18/17 Wound E. faecalis pansensitive 03/13/17 Wound E. faecalis pansensitive Admission Wt: Weight: 68 kg (150 lb) Current Wt: Weight: 68.7 kg (151 lb 7.3 oz) Min/Max Temp past 24 hours:Temp Av.2 C (99 F) Min: 36.6 C (97.9 F) Max: 37. 7 C (99.9 F) Estimated Creatinine Clearance: 95 mL/min (A) (based on SCr of 0.69 mg/dL (L)). Intake/Output Summary (Last 24 hours) at 05/06/2019 1241 Last data filed at 05/06/2019 0628 Gross per 24 hour Intake 2960 ml Output 575 ml Net 2385 ml Temp: [36.6 C (97.9 F)-37.7 C (99.9 F)] 36.6 C (97.9 F) Pulse: [74-109] 74 Resp: [18-20] 20 BP: (138-155)/(64-78) 155/67 Recent Labs Lab 05/06/19 1319 05/06/19 0650 05/05/19 0439 05/05/19 0002 05/04/19 1618 WBC -- 9.5 7.4 -- 9.1 CREA -- 0.69* 0.75 0.87 0.93 LACTATE -- -- -- -- 2.1 VANCOTROUGH 16.9* -- -- -- -- Imagin/12 XR foot left: in process Date 05/04 05/05 05/06 Time of Vancomycin draw -- 1319 Vancomycin result -- 16.9 LEVEL or TROUGH TROUGH Serum Creatinine 0.93 0.75 0.69 CrCl (mL/min) 70 87 95 Vanco load/bolus -- Vanco dose - current -- 1250 mg q12h 1250 mg q12hr Vanco dose - new 1250 mg q12hr No change No change Assessment: Vancomycin Day # 3 Other antibiotics: Zosyn Target Trough: 15-20 mcg/ml for osteomyelitis WBC: wnl; Renal: SCr close to basline; Temp: afebrile (tmax 99.9F); Culture: Left toe ti ssue - 2+ GNB, 1+ GNR, BCX 1/4 bottles GPC; VS: hypertensive Renal function: UOP: 0.6 mL/kg/hr Dosing weight 68 kg (actual body weight) S/P I&D and amputation of digits 3,4,5 of left foot, op note "The entire wound was evalu ated and any questionable tissue was removed" "The wound is re examined and found to have vi able, satisfactory tissue" Plan: 1. Continue vancomycin 1250 mg (~18 mg/kg) IVPB q12h 2. Vancomycin trough ordered for 05/08/19 @ 1300 (draw 60 minutes prior to hanging the 8th dose) 3. Serum creatinine DAILY for first 3 days, then at least every 3 days while on vancomycin. 4. Will monitor renal function, clinical status, infection markers daily with troughs and d ose adjustment as needed. Definitions: For the purpose of this protocol, "trough" means a steady state trough before the 4th dose of the initial/new dosing regimen and "level" means all other levels drawn including before the 3rd dose References: Vancomycin dosing protocol IDSA guidelines Pharmacist-Driven Procalcitonin Protocol Per P&T-approved Vancomycin Dosing and Monitoring Protocol Electronically signed by: Soraya Loredo PharmD 05/06/2019 12:41 PM Merry Bajwa DPM - 05/05/2019 2:27 PM PST . Foot & Ankle Surgery Progress Note Kaylyn Coreas DPM DPM Paul Bunn Age/Gender 73 y.o. male Location [facility] Attending Val Jara MD Hosp Day # 1 PCP ANATOLY Rawls Date of Surgery: 05/04/2019 Post Operative Day: 2 Procedure: Left foot I&D for infection down to bone, amputation of digits 3,4,5 Subjective: Pt is seen at bedside. He is resting comfortably. He reports frequent left sandy t pain and requests stronger pain medication. Objective: VASC: DP is 1/4; PT is 1/4; CFT is 4 seconds NEURO: Gross protective sensation is intact. MSK: Right AKA, left TMA DERM: Bandage is intact over the left foot. The bandage is without strikethrough Recent Labs 05/05/19 0439 05/05/19 0002 05/04/19 1618 WBC 7.4 -- 9.1 HCT 41.1 -- 43.2 HGB 13.9 -- 14.7 PLT 293 -- 341 GLU 119* 105 174* INR -- -- 1.0 Microbiology Results (24 hrs) Procedure Component Value Units Date/Time Culture, Wound, Smear, w/Anaerobe [[id number]] Collected: 05/04/192208 Order Status: Sent Lab Status: In process Updated: 05/04/192216 Specimen: Tissue from Toe, Third, Left Narrative: The following orders were created for panel order Culture, Wound, Smear, w/Anaerobe. Procedure Abnormality Status --------- ------ Culture, Wound, Smear[[id number]] Preliminary result Culture, Anaerobic[[id number]] In process Please view results for these tests on the individual orders. Culture, Wound, Smear [[id number]] Collected: 05/04/192208 Order Status: Completed Lab Status: Preliminary result Updated: 05/05/19 09 Specimen: Tissue from Toe, Third, Left Culture Young culture, reincubating 2+ Lactose Fermenting Gram Negative Bacilli Comment: Isolating for additional information. Gram Stain Result 1+ White Blood Cells 2+ Epithelial cells 1+ Gram negative rods Culture, Anaerobic [[id number]] Collected: 05/04/192208 Order Status: Resulted Lab Status: In process Updated: 05/04/192216 Specimen: Tissue from Toe, Third, Left Culture, Blood [[id number]] Collected: 05/04/19 163 Order Status: Completed Lab Status: Preliminary result Updated: 05/05/19 044 Specimen: Blood from Line Culture No growth: Monitored continually by instrument for 5 days Culture, Blood [[id number]] Collected: 05/04/19 1618 Order Status: Completed Lab Status: Preliminary result Updated: 05/05/19 0431 Specimen: Peripheral Blood Culture No growth: Monitored continually by instrument for 5 days Assessment: Paul Bunn is a 73 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 Reviewed exam, surgery and plan with patient. We discussed the need to continue follow [facility] to ensure no further treatments are needed. He re ports he is being actively followed and currently has care in place but unable to articulate any particulars of that plan. Will closely monitor wound and continue with antibiotics to g ignacia best chance for healing. Plan: The wound dressing is left in place. Will likely change tomorrow, 05/06. Continue IV anitbiotics. Awaiting culture results To avoid forefoot weight bearing. During our visit he tried to avoid help from nursing staf f to use restroom After his discharge patient will be able to follow up in my office, however after his last procedure he never presented for ANY post operative care or follow up. Kaylyn Coreas DPM DPM 2:27 PM; 05/05/2019 aGhislaine donaldson, PharmD - 05/05/2019 11:02 AM PSTFormatting of this note might be different from the origi nal. VANCOMYCIN PER PHARMACY PROTOCOL: AMS/Drug Name - Vanco and Zosyn Patient: Paul Bunn [id number] Admit: 05/04/2019 3:30 PM RELEVANT ALLERGIES: no abx allergy 73 yrs old male patient admitted on 05/04/2019 for left foot with third digit distal necro sis, deep ulceration to the bone and cellulitis. Patient is receiving vancomycin starting o n 05/04/19 for osteomyelitis. Patient has a past medical history of Arrhythmia, Arthritis, Carpal tunnel syndrome, Constipation, chronic, Dental caries, Depression, Diabetes mellitus (HCC), Diabetic neuropathy (HCC), Epidermal cyst of face, Ganglion cyst, GERD (gastroesophag eal reflux disease), Hyperlipidemia, Hypertension, Hypomagnesemia, Impotence, Insomnia, Neur opathy, Nicotine dependence, Osteoarthrosis involving multiple sites, Peripheral vascular di sease (HCC), PTSD (post-traumatic stress disorder), PTSD (post-traumatic stress disorder), R aised prostate specific antigen, Skin ulcer (HCC), Sleep disorder, Umbilical hernia, and Uri nary frequency. . Risk factors for MDR organisms include recent healthcare contact and antib iotic use (hospitalization jan 2019). HPI: presented for evaluation of ulcerations, he noted there was a small ulceration at the base. He has been going to wound care up until 1 month ago, when he was transition to wound care at home which his daughter was doing. He reported that things look good 2 weeks ago, and they start doing wound care. Last few days, he noted that his third digit became very s wollen and erythematous, then to started darkening, he developed deep ulceration that went a ll the way to the bone. [facility], and he was referred to the ER for further evaluation. The third toe is concerning for gangrene with exposed bone and will require surgical amputa tion. The fourth toe exam is concerning as well. Toes were amputated on 05/04/19. Antimicrobials - Current Antibiotic Dates of Therapy Vanco 05/04- Zosyn 05/04- Antimicrobials - Discontinued Antibiotic Dates of Therapy Historical Vancomycin dosing (previous & current encounter): Jan 2019 SCr 0.93, 0.84 vanco mycin 1250 mg q12hr with a trough of 14.5 Micro/Cultures/Diagnostics: Microbiology Results (Last 14 Days by Collected Date with Culture/Sensitivity) Procedure Component Value Units Date/Time Culture, Wound, Smear, w/Anaerobe [[id number]] Collected: 05/04/192208 Order Status: Sent Lab Status: In process Updated: 05/04/192216 Specimen: Tissue from Toe, Third, Left Narrative: The following orders were created for panel order Culture, Wound, Smear, w/Anaerobe. Procedure Abnormality Status --------- ------ Culture, Wound, Smear[[id number]] Preliminary result Culture, Anaerobic[[id number]] In process Please view results for these tests on the individual orders. Culture, Wound, Smear [[id number]] Collected: 05/04/192208 Order Status: Completed Lab Status: Preliminary result Updated: 05/05/19 0924 Specimen: Tissue from Toe, Third, Left Culture Young culture, reincubating 2+ Lactose Fermenting Gram Negative Bacilli Comment: Isolating for additional information. Gram Stain Result 1+ White Blood Cells 2+ Epithelial cells 1+ Gram negative rods Culture, Anaerobic [[id number]] Collected: 05/04/192208 Order Status: Resulted Lab Status: In process Updated: 05/04/192216 Specimen: Tissue from Toe, Third, Left Culture, Blood [[id number]] Collected: 05/04/19 1631 Order Status: Completed Lab Status: Preliminary result Updated: 05/05/19 044 Specimen: Blood from Line Culture No growth: Monitored continually by instrument for 5 days Culture, Blood [[id number]] Collected: 05/04/19 1618 Order Status: Completed Lab Status: Preliminary result Updated: 05/05/19 0431 Specimen: Peripheral Blood Culture No growth: Monitored continually by instrument for 5 days Relevant cultures from previous admits: Date Source Organisms Sensitivities 02/17/19 & 02/16/19 Toe, second, left tissue MSSA pansensitive 03/18/17 Wound E. faecalis pansensitive 03/13/17 Wound E. faecalis pansensitive Admission Wt: Weight: 68 kg (150 lb) Current Wt: Weight: (Patient Refused) Min/Max Temp past 24 hours:Temp Av.3 C (97.4 F) Min: 36 C (96.8 F) Max: 37. 3 C (99.1 F) Estimated Creatinine Clearance: 87 mL/min (based on SCr of 0.75 mg/dL). Intake/Output Summary (Last 24 hours) at 05/05/2019 1102 Last data filed at 05/05/2019 0744 Gross per 24 hour Intake 1280 ml Output 210 ml Net 1070 ml Temp: [36 C (96.8 F)-37.3 C (99.1 F)] 36.3 C (97.3 F) Pulse: [71-104] 88 Resp: [11-23] 16 BP: (104-223)/(43-125) 150/68 Recent Labs Lab 05/05/19 0439 05/05/19 0002 05/04/19 1618 WBC 7.4 -- 9.1 CREA 0.75 0.87 0.93 LACTATE -- -- 2.1 Imagin/12 XR foot left: in process Date 05/04 05/05 Time of Vancomycin draw -- Vancomycin result -- LEVEL or TROUGH Serum Creatinine 0.93 0.75 CrCl (mL/min) 70 87 Vanco load/bolus -- Vanco dose - current -- 1250 mg q12h Vanco dose - new 1250 mg q12hr No change Assessment: Vancomycin Day # 2 Other antibiotics: Zosyn Target Trough: 15-20 mcg/ml for osteomyelitis WBC: wnl; Renal: SCr close to basline; Temp: afebrile; Culture: wound and blood pending; VS: tachycardia improving, hypertension improving Renal function: UOP: tbd mL/kg/hr Dosing weight 68 kg (actual body weight) Plan: 1. Vancomycin 1250 mg (~18 mg/kg) IVPB q12h 2. Vancomycin trough ordered for 05/06/19 @ 1300 (draw 60 minutes prior to hanging the 4th dose) 3. Serum creatinine DAILY for first 3 days, then at least every 3 days while on vancomycin. 4. Will monitor renal function, clinical status, infection markers daily with troughs and d ose adjustment as needed. Definitions: For the purpose of this protocol, "trough" means a steady state trough before the 4th dose of the initial/new dosing regimen and "level" means all other levels drawn including before the 3rd dose References: Vancomycin dosing protocol IDSA guidelines Pharmacist-Driven Procalcitonin Protocol Per P&T-approved Vancomycin Dosing and Monitoring Protocol Electronically signed by: Vera Love PharmD 05/05/2019 11:02 AM Jaleesa Peck ed, MD - 05/05/2019 10:59 AM PSTFormatting of this note might be different from the rut willem. [place], [place] HOSPITALIST PROGRESS NOTE Patient: Paul Bunn : 1945: Age: 73 y.o. MedRec: [id number] Admission date: 05/04/2019 Hospital day # : 1 Physician author: Efraín Wright MD Today: 05/05/2019 Assessment and Hospital Course Active Hospital Problems Diagnosis Cellulitis of third toe, left Gangrene of toe of left foot Smoker - Daily Hyponatremia Alcohol use, Habitual Peripheral vascular disease Hypertension GERD (gastroesophageal reflux disease) Diabetes mellitus type II, ORAL Control Resolved Hospital Problems No resolved problems to display. 73 y.o. male with a history of hypertension, hyperlipidemia, diabetes mellitus type 2 with neuropathy, current everyday smoker, peripheral vascular disease with stents in left lower e xtremity, right-sided AKA, GERD, depression, PTSD, who presented for evaluation of ulceratio n s, he noted there was a small ulceration at the base. He has been going to wound care up until 1 month ago, when he was transition to wound care at home which his daughter was doing . He reported that things look good 2 weeks ago, and they start doing wound care. Last few days, he noted that his third digit became very swollen and erythematous, then to started d arkening, he developed deep ulceration that went all the way to the bone. [facility] for further evaluation. On review of systems , he denies any fever, chills, sweats. He denies any chest pain, shortness of breath, palpi tations. He denies any nausea, vomiting, abdominal pain or urinary symptoms. Vital signs in the ER, initially with hypertension, currently stable. Laboratory studies s ignificant for no leukocytosis, stable hemoglobin, normal renal function. Noted mild hypona tremia. Elevated ALP. Blood cultures drawn, x-ray of foot performed. Podiatry was consult ed, patient will be taken to the OR tonight for further amputation. Wound cultures will be sent.. Plan 73 y.o. male with PMH significant for previous right AKA, PAD, left first and second toe am putations presented with necrotic wound of the third toe with bone exposed, redness/swelling of fourth toe # Gangrene of left third toe with exposed bone and e/o infection/OSteomyelitis # Cellulitis of left fourth toe - s/p Left 3rd/4th/5th amputation by Dr. Coreas 05/04 - on Vanc and Zosyn - deep Cx growing LF GNB, BCx NGTD - HDS - pain control (increased norco dose and frequency) - wound care - f/u final ID and Sens from deep Cx # PAD s/p prior right AKA, stents in LE, left 1st/2nd toe amputation - cont asa/plavix/statin - continues to smoke, counseled # HTN - continue home meds # NIDDM - holding metformin - cont SSI # HLD - cont statin # Smoker - 1-/2 ppd - counseled but patient pretty adamant PT/OT Subjective CC f/u left toe gangrene NAEO, left foot pain not well controlled, he wants to go home, no other complaints ROS See above Exam GA: NAD, AAOX3 Neck: no JVD, supple Cardiac: rrr, no m/g/r Lung: CTAB, normal respiratory effort Abdomen: soft, nt/nd, nabs Ext: Right AKA noted, left foot dressing in place Allergies: Allergies Allergen Reactions Ketamine Other (See Comments) agitation Current Medications: Current Facility-Administered Medications Medication Dose Route Frequency Provider Last Rate Last Dose acetaminophen (TYLENOL) tablet 650 mg 650 mg Oral Q4H PRN Val Jara MD aspirin chewable tablet 81 mg 81 mg Oral Daily Val Jara MD 81 mg at 0810 atorvaSTATin (LIPITOR) tablet 10 mg 10 mg Oral Nightly Val Jara MD calcium carbonate (TUMS) chewable tablet 1,000 mg 1,000 mg Oral Q4H PRN Val bautista MD clopidogrel (PLAVIX) tablet 75 mg 75 mg Oral Daily Val Jara MD 75 mg a t 05/05/19 0810 dextrose 50% injection 12.5-25 g 12.5-25 g Intravenous PRN Val Jara MD And dextrose 10% (D10W) infusion Intravenous Continuous PRN Val Jara MD docusate sodium (COLACE) capsule 100 mg 100 mg Oral BID PRN Val Jara MD enoxaparin (LOVENOX) 40 mg/0.4 mL injection 40 mg 40 mg Subcutaneous Daily Val Jara MD gabapentin (NEURONTIN) capsule 600 mg 600 mg Oral TID Val Jara MD 600 mg at 05/05/19 0810 HYDROcodone-acetaminophen (NORCO) 10-325 mg per tablet 1 tablet 1 tablet Oral Q4H PRN fEraín Wright MD insulin lispro (humaLOG KWIKPEN) injection (pen) 0-6 Units 0-6 Units Subcutaneous 4x D aily WC and HS Val Jara MD lisinopril (PRINIVIL, ZESTRIL) tablet 10 mg 10 mg Oral Daily Val Jara MD 10 mg at 05/05/19 0810 melatonin tablet 3 mg 3 mg Oral Nightly PRN Juli Villarreal MD metoprolol succinate (TOPROL-XL) ER tablet 25 mg 25 mg Oral Daily Val sahu MD 25 mg at 05/05/19 0810 morphine injection 1-4 mg 1-4 mg Intravenous Q3H PRN Val Jara MD 2 mg at 05/05/19 0644 ondansetron (ZOFRAN) injection 4 mg 4 mg Intravenous Q6H PRN Val Jara MD pantoprazole (PROTONIX) DR tablet 40 mg 40 mg Oral QAM AC Val Jara MD piperacillin-tazobactam (ZOSYN) 3.375 g in sodium chloride 0.9% 100 mL IVPB 3.375 g In travenous Q8H Val Jara MD 25 mL/hr at 05/05/19 0359 3.375 g at 05/05/19 0359 polyethylene glycol (MIRALAX) powder 17 g 17 g Oral Daily PRN Merrill Snow senna (SENOKOT) tablet 8.6 mg 8.6 mg Oral BID PRN Val Jara MD sodium chloride 0.9% (NS) infusion Intravenous Continuous Val Jara MD 7 5 mL/hr at 05/05/19 0202 traZODone (DESYREL) tablet 150 mg 150 mg Oral Nightly PRN Val Jara MD vancomycin 1,250 mg in sodium chloride 0.9% 250 mL IVPB 1,250 mg Intravenous Q12H Anika York PharmNeisha 175 mL/hr at 05/05/19 0203 1,250 mg at 05/05/19 0203 vancomycin per pharmacy Other Pharmacy Consult Val Jara MD Current Infusions: dextrose 10% sodium chloride 0.9% 75 mL/hr at 05/05/19 0202 Objective Data Point of care glucose Recent Labs Lab 05/04/19 2248 05/04/19 2040 POCGLU 121* 106 Labs last 24 hours Recent Results (from the past 24 hour(s)) CBC with Differential Collection Time: 05/04/19 4:18 PM Result Value Ref Range WBC 9.1 4.0 - 11.0 K/uL RBC 4.72 4.30 - 5.70 M/uL Hemoglobin 14.7 13.5 - 18.0 g/dL Hematocrit 43.2 40.0 - 51.0 % MCV 91.5 83.0 - 101.0 fL MCH 31.1 28.0 - 35.0 pg MCHC 34.0 32.0 - 36.0 g/dL RDW-CV 13.2 <15.0 % RDW-SD 44.8 35.1 - 46.3 fL Platelet Count 341 140 - 440 K/uL MPV 11.8 6.5 - 12.4 fL % Neutrophils 72.2 45.0 - 82.0 % % Lymphocytes 21.6 20.0 - 45.0 % % Monocytes 5.3 4.0 - 12.0 % % Eosinophils 0.1 0.0 - 5.0 % % Basophils 0.5 0.0 - 1.0 % % Immature Granulocytes 0.3 0.0 - 0.4 % Absolute Neutrophils 6.57 1.80 - 8.50 K/uL Absolute Lymphocytes 1.97 0.60 - 3.20 K/uL Absolute Monocytes 0.48 0.00 - 1.00 K/uL Absolute Eosinophils 0.01 0.00 - 0.40 K/uL Absolute Basophils 0.05 0.00 - 0.10 K/uL Absolute Immature Granulocytes 0.03 0.00 - 0.03 K/uL % nRBC 0 0 - 2 per 100 WBCs Absolute nRBC 0.00 0.00 - 0.01 K/uL Comprehensive Metabolic Panel Collection Time: 05/04/19 4:18 PM Result Value Ref Range Na 129 (L) 136 - 145 mmol/L K 4.7 3.4 - 5.1 mmol/L Cl 101 98 - 107 mmol/L CO2 23 20 - 31 mmol/L Anion Gap 5 3 - 16 mmol/L Glucose 174 (H) 60 - 106 mg/dL BUN 11 9 - 23 mg/dL Creatinine 0.93 0.70 - 1.30 mg/dL eGFR if not >60 >=60 mL/min/1.73m2 Calcium 8.2 (L) 8.7 - 10.4 mg/dL Albumin 3.4 3.2 - 4.8 g/dL Bilirubin Total 0.2 (L) 0.3 - 1.2 mg/dL Total Protein 6.5 5.7 - 8.2 g/dL AST 18 0 - 34 U/L ALT 12 10 - 49 U/L Alkaline Phosphatase 141 (H) 46 - 116 U/L Globulin 3.1 2.1 - 3.8 g/dL Albumin/Globulin Ratio 1.1 0.8 - 1.9 BUN/Creatinine Ratio 11.8 Lipase Collection Time: 05/04/19 4:18 PM Result Value Ref Range Lipase 51 12 - 53 U/L Protime INR Collection Time: 05/04/19 4:18 PM Result Value Ref Range Prothrombin Time 13.2 11.3 - 13.9 seconds INR 1.0 0.9 - 1.1 Culture, Blood Collection Time: 05/04/19 4:18 PM Result Value Ref Range Culture No growth: Monitored continually by instrument for 5 days Lactic Acid Collection Time: 05/04/19 4:18 PM Result Value Ref Range Lactate 2.1 0.5 - 2.2 mmol/L Culture, Blood Collection Time: 05/04/19 4:31 PM Result Value Ref Range Culture No growth: Monitored continually by instrument for 5 days POC Glucose Collection Time: 05/04/19 8:40 PM Result Value Ref Range Glucose, POC 106 70 - 109 mg/dL Culture, Wound, Smear Collection Time: 05/04/19 10:09 PM Result Value Ref Range Culture Young culture, reincubating Culture 2+ Lactose Fermenting Gram Negative Bacilli Gram Stain Result 1+ White Blood Cells Gram Stain Result 2+ Epithelial cells Gram Stain Result 1+ Gram negative rods POC Glucose Collection Time: 05/04/19 10:48 PM Result Value Ref Range Glucose, POC 121 (H) 70 - 109 mg/dL Basic Metabolic Panel Collection Time: 05/05/19 12:02 AM Result Value Ref Range Na 134 (L) 136 - 145 mmol/L K 4.1 3.4 - 5.1 mmol/L Cl 103 98 - 107 mmol/L CO2 27 20 - 31 mmol/L Anion Gap 4 3 - 16 mmol/L Glucose 105 60 - 106 mg/dL BUN 9 9 - 23 mg/dL Creatinine 0.87 0.70 - 1.30 mg/dL eGFR if not >60 >=60 mL/min/1.73m2 Calcium 8.3 (L) 8.7 - 10.4 mg/dL BUN/Creatinine Ratio 10.3 Extra Lavender Top Tube Collection Time: 05/05/19 12:02 AM Result Value Ref Range Extra Lavender Top Tube Done CBC with Differential Collection Time: 05/05/19 4:39 AM Result Value Ref Range WBC 7.4 4.0 - 11.0 K/uL RBC 4.41 4.30 - 5.70 M/uL Hemoglobin 13.9 13.5 - 18.0 g/dL Hematocrit 41.1 40.0 - 51.0 % MCV 93.2 83.0 - 101.0 fL MCH 31.5 28.0 - 35.0 pg MCHC 33.8 32.0 - 36.0 g/dL RDW-CV 13.3 <15.0 % RDW-SD 45.6 35.1 - 46.3 fL Platelet Count 293 140 - 440 K/uL MPV 11.9 6.5 - 12.4 fL % Neutrophils 67.7 45.0 - 82.0 % % Lymphocytes 24.4 20.0 - 45.0 % % Monocytes 6.2 4.0 - 12.0 % % Eosinophils 0.5 0.0 - 5.0 % % Basophils 0.7 0.0 - 1.0 % % Immature Granulocytes 0.5 (H) 0.0 - 0.4 % Absolute Neutrophils 4.98 1.80 - 8.50 K/uL Absolute Lymphocytes 1.80 0.60 - 3.20 K/uL Absolute Monocytes 0.46 0.00 - 1.00 K/uL Absolute Eosinophils 0.04 0.00 - 0.40 K/uL Absolute Basophils 0.05 0.00 - 0.10 K/uL Absolute Immature Granulocytes 0.04 (H) 0.00 - 0.03 K/uL % nRBC 0 0 - 2 per 100 WBCs Absolute nRBC 0.00 0.00 - 0.01 K/uL Basic Metabolic Panel Collection Time: 05/05/19 4:39 AM Result Value Ref Range Na 135 (L) 136 - 145 mmol/L K 4.2 3.4 - 5.1 mmol/L Cl 106 98 - 107 mmol/L CO2 25 20 - 31 mmol/L Anion Gap 4 3 - 16 mmol/L Glucose 119 (H) 60 - 106 mg/dL BUN 8 (L) 9 - 23 mg/dL Creatinine 0.75 0.70 - 1.30 mg/dL eGFR if not >60 >=60 mL/min/1.73m2 Calcium 8.2 (L) 8.7 - 10.4 mg/dL BUN/Creatinine Ratio 10.7 Magnesium Collection Time: 05/05/19 4:39 AM Result Value Ref Range Magnesium 2.1 1.6 - 2.6 mg/dL Hemoglobin A1C Collection Time: 05/05/19 4:39 AM Result Value Ref Range Hemoglobin A1c 6.6 (H) 4.3 - 6.0 % Estimated Average Glucose 143 mg/dL Micro results Microbiology Results (72 hrs) Procedure Component Value Units Date/Time Culture, Wound, Smear, w/Anaerobe [[id number]] Collected: 05/04/192208 Order Status: Sent Lab Status: In process Updated: 05/04/192216 Specimen: Tissue from Toe, Third, Left Narrative: The following orders were created for panel order Culture, Wound, Smear, w/Anaerobe. Procedure Abnormality Status --------- ------ Culture, Wound, Smear[[id number]] Preliminary result Culture, Anaerobic[[id number]] In process Please view results for these tests on the individual orders. Culture, Wound, Smear [[id number]] Collected: 05/04/192208 Order Status: Completed Lab Status: Preliminary result Updated: 05/05/19 09 Specimen: Tissue from Toe, Third, Left Culture Young culture, reincubating 2+ Lactose Fermenting Gram Negative Bacilli Comment: Isolating for additional information. Gram Stain Result 1+ White Blood Cells 2+ Epithelial cells 1+ Gram negative rods Culture, Anaerobic [[id number]] Collected: 05/04/192208 Order Status: Resulted Lab Status: In process Updated: 05/04/192216 Specimen: Tissue from Toe, Third, Left Culture, Blood [[id number]] Collected: 05/04/19 163 Order Status: Completed Lab Status: Preliminary result Updated: 05/05/19 0441 Specimen: Blood from Line Culture No growth: Monitored continually by instrument for 5 days Culture, Blood [[id number]] Collected: 05/04/19 1618 Order Status: Completed Lab Status: Preliminary result Updated: 05/05/19 0431 Specimen: Peripheral Blood Culture No growth: Monitored continually by instrument for 5 days Radiology results Xr Foot Left 2 Vw Result Date: 05/05/2019 CLINICAL INFORMATION: surgery. COMPARISON: 05/04/2019 FINDINGS: 2 views of the left foot. I nterval amputation of the 3rd, 4th, and 5th digits distal to the metatarsals. Chronic 1st mi d metatarsal dictation changes. Peripheral vascular calcifications. Amputation changes. Dictated and Signed by: Shemar Mccoy MD Electronically signed: 04/23 8:29 AM Xr Foot Left 3 + Vw Result Date: 05/04/2019 XR FOOT LEFT 3 + VW 05/04/2019 4:21 PM HISTORY: TOE SWELLING TOE REDNESS. COMPARISON: 2018. FINDINGS: Evidence of prior amputation at the level of the base of the first metatarsa l. No acute osseous abnormality identified. Subcutaneous emphysema and diffuse soft tissue s welling is seen along the base of the third proximal phalanx. Subcutaneous emphysema and diffuse soft tissue swelling is seen along the base of the third proximal phalanx. No convincing evidence for acute osteomyelitis at this time. -Plain film radiography isn't sensitive for early osteomyelitis. Recommend contrast-enhanced MRI if ther e is further concern. Dictated and Signed by: Jaxson Nettles MD Electronically signed: 04/23 8:22 PM Vitals Ranges: Temp: [36 C (96.8 F)-37.3 C (99.1 F)] 36.3 C (97.3 F) Pulse: [71-104] 88 Resp: [11-23] 16 BP: (104-223)/(43-125) 150/68 Vitals: Temp: 36.3 C (97.3 F) BP: 150/68 Pulse: 88 Resp: 16 SpO2: 94 % SpO2 94 % on room air at flow rate L/min Efraín Wright MD 05/05/2019 10:59 AM [facility] Portions of this chart may have been created with [employer] voice recognition software. Occasi onal wrong-word or sound-alike substitutions may have occurred due to the inherent leigh itations of voice recognition software. Please read the chart carefully and recognize, using context, where these substitutions have occurred Bre Huang, PharmD - 05/04/2019 6:36 PM PSTFormatting of this note might be different from the origina l. VANCOMYCIN PER PHARMACY PROTOCOL: AMS/Drug Name - Vanco and Zosyn Patient: Paul Bunn ED11/ED11 Admit: 05/04/2019 3:30 PM RELEVANT ALLERGIES: no abx allergy 73 yrs old male patient admitted on 05/04/2019 for left foot with third digit distal necro sis, deep ulceration to the bone and cellulitis. Patient is receiving vancomycin starting o n 05/04/19 for osteomyelitis. Patient has a past medical history of Arrhythmia, Arthritis, Carpal tunnel syndrome, Constipation, chronic, Dental caries, Depression, Diabetes mellitus (HCC), Diabetic neuropathy (HCC), Epidermal cyst of face, Ganglion cyst, GERD (gastroesophag eal reflux disease), Hyperlipidemia, Hypertension, Hypomagnesemia, Impotence, Insomnia, Neur opathy, Nicotine dependence, Osteoarthrosis involving multiple sites, Peripheral vascular di sease (HCC), PTSD (post-traumatic stress disorder), PTSD (post-traumatic stress disorder), R aised prostate specific antigen, Skin ulcer (HCC), Sleep disorder, Umbilical hernia, and Uri nary frequency. . Risk factors for MDR organisms include recent healthcare contact and antib iotic use (hospitalization jan 2019). HPI: presented for evaluation of ulcerations, he noted there was a small ulceration at the base. He has been going to wound care up until 1 month ago, when he was transition to wound care at home which his daughter was doing. He reported that things look good 2 weeks ago, and they start doing wound care. Last few days, he noted that his third digit became very s wollen and erythematous, then to started darkening, he developed deep ulceration that went a ll the way to the bone. [facility] and he was referred to [facility] for further evaluation. The third toe is concerning for gangrene with exposed bone and will require surgical amputa tion. The fourth toe exam is concerning as well. Toes were amputated on 05/04/19. Antimicrobials - Current Antibiotic Dates of Therapy Vanco 05/04- Zosyn 05/04- Antimicrobials - Discontinued Antibiotic Dates of Therapy Historical Vancomycin dosing (previous & current encounter): Jan 2019 SCr 0.93, 0.84 vanco mycin 1250 mg q12hr with a trough of 14.5 Micro/Cultures/Diagnostics: Microbiology Results (Last 14 Days by Collected Date with Culture/Sensitivity) Procedure Component Value Units Date/Time Culture, Wound, Smear, w/Anaerobe [[id number]] Collected: 05/04/192208 Order Status: Sent Lab Status: In process Updated: 05/04/192216 Specimen: Tissue from Toe, Third, Left Narrative: The following orders were created for panel order Culture, Wound, Smear, w/Anaerobe. Procedure Abnormality Status --------- ------ Culture, Wound, Smear[[id number]] In process Culture, Anaerobic[[id number]] In process Please view results for these tests on the individual orders. Culture, Wound, Smear [[id number]] Collected: 05/04/192208 Order Status: Sent Lab Status: In process Updated: 05/04/192216 Specimen: Tissue from Toe, Third, Left Culture, Anaerobic [[id number]] Collected: 05/04/192208 Order Status: Sent Lab Status: In process Updated: 05/04/192216 Specimen: Tissue from Toe, Third, Left Culture, Blood [[id number]] Collected: 05/04/191630 Order Status: Sent Lab Status: In process Updated: 05/04/191633 Specimen: Blood from Line Culture, Blood [[id number]] Collected: 05/04/191617 Order Status: Sent Lab Status: In process Updated: 05/04/19 162 Specimen: Peripheral Blood Relevant cultures from previous admits: Date Source Organisms Sensitivities 02/17/19 & 02/16/19 Toe, second, left tissue MSSA pansensitive 03/18/17 Wound E. faecalis pansensitive 03/13/17 Wound E. faecalis pansensitive Admission Wt: Weight: 68 kg (150 lb) Current Wt: Weight: 68 kg (150 lb) Min/Max Temp past 24 hours:Temp Av.2 C (97.2 F) Min: 36.1 C (97 F) Max: 36. 4 C (97.5 F) Estimated Creatinine Clearance: 70 mL/min (based on SCr of 0.93 mg/dL). Intake/Output Summary (Last 24 hours) at 05/04/2019 2357 Last data filed at 05/04/2019 2315 Gross per 24 hour Intake 1000 ml Output 10 ml Net 990 ml Temp: [36.1 C (97 F)-36.4 C (97.5 F)] 36.1 C (97 F) Pulse: [76-104] 78 Resp: [11-23] 16 BP: (104-223)/(43-125) 134/63 Recent Labs Lab 05/04/19 1618 WBC 9.1 CREA 0.93 LACTATE 2.1 Imagin/12 XR foot left: in process Date 05/04 Time of Vancomycin draw -- Vancomycin result -- LEVEL or TROUGH Serum Creatinine 0.93 CrCl (mL/min) 70 Vanco load/bolus -- Vanco dose - current -- Vanco dose - new 1250 mg q12hr Assessment: Vancomycin Day # 1 Other antibiotics: Zosyn Target Trough: 15-20 mcg/ml for osteomyelitis WBC: wnl; Renal: SCr close to basline; Temp: afebrile; Culture: wound and blood pending; VS: tachycardia improving, hypertension improving Renal function: UOP: tbd mL/kg/hr Dosing weight 68 kg (actual body weight) Plan: 1. Vancomycin 1250 mg (~18 mg/kg) IVPB q12h 2. Vancomycin trough ordered for 05/06/19 @ 1130 (draw 60 minutes prior to hanging the 4th dose) 3. Serum creatinine DAILY for first 3 days, then at least every 3 days while on vancomycin. 4. Will monitor renal function, clinical status, infection markers daily with troughs and d ose adjustment as needed. Definitions: For the purpose of this protocol, "trough" means a steady state trough before the 4th dose of the initial/new dosing regimen and "level" means all other levels drawn including before the 3rd dose References: Vancomycin dosing protocol IDSA guidelines Pharmacist-Driven Procalcitonin Protocol Per P&T-approved Vancomycin Dosing and Monitoring Protocol Electronically signed by: Lizette Kelly PharmD 05/04/2019 6:37 PM documented in thi s encounter Plan of Treatment + +------+--------+ + + | Name | Type | Priori | Associated Diagnoses | Date/Time | | | | ty | | | + +------+--------+ + + | ED INFORMATION | [facility] | Routin | | 05/04/2019 2:45 PM | | EXCHANGE | | e | | PST | + +------+--------+ + + + + +--------+ + + | Name | Type | Priori | Associated Diagnoses | Order Schedule | | | | ty | | | + + +--------+ + + | Amb Referral to Home | Outpatient | Routin | Gangrene of toe of | Ordered: 05/08/2019 | | [facility] | Referral | e | left foot (HCC) | | | | | | Osteomyelitis of | | | | | | third toe of left | | | | | | foot (HCC) | | + + +--------+ + + documented as of this encounter Procedures + +--------+ + + + | Procedure Name | Priori | Date/Time | Associated Diagnosis | Comments | | | ty | | | | + +--------+ + + + | POC GLUCOSE | Routin | 05/08/2019 | | Results for this | | | e | 12:39 PM | | procedure are in the | | | | PST | | results section. | + +--------+ + + + | CBC NO DIFFERENTIAL | Routin | 05/08/2019 | | Results for this | | | e | 6:40 AM | | procedure are in the | | | | PST | | results section. | + +--------+ + + + | BASIC METABOLIC | Routin | 05/08/2019 | | Results for this | | PANEL | e | 6:40 AM | | procedure are in the | | | | PST | | results section. | + +--------+ + + + | POC GLUCOSE | Routin | 05/07/2019 | | Results for this | | | e | 8:50 PM | | procedure are in the | | | | PST | | results section. | + +--------+ + + + | XR CHEST AP PORTABLE | [facility] | 05/07/2019 | Gangrene of toe of | Results for this | | | | 1:59 PM | left foot (HCC) | procedure are in the | | | | PST | | results section. | + +--------+ + + + | POC GLUCOSE | Routin | 05/07/2019 | | Results for this | | | e | 12:18 PM | | procedure are in the | | | | PST | | results section. | + +--------+ + + + | POC GLUCOSE | Routin | 05/07/2019 | | Results for this | | | e | 6:54 AM | | procedure are in the | | | | PST | | results section. | + +--------+ + + + | CBC NO DIFFERENTIAL | Routin | 05/07/2019 | | Results for this | | | e | 5:03 AM | | procedure are in the | | | | PST | | results section. | + +--------+ + + + | BASIC METABOLIC | Routin | 05/07/2019 | | Results for this | | PANEL | e | 5:03 AM | | procedure are in the | | | | PST | | results section. | + +--------+ + + + | POC GLUCOSE | Routin | 05/06/2019 | | Results for this | | | e | 8:27 PM | | procedure are in the | | | | PST | | results section. | + +--------+ + + + | POC GLUCOSE | Routin | 05/06/2019 | | Results for this | | | e | 4:33 PM | | procedure are in the | | | | PST | | results section. | + +--------+ + + + | VANCOMYCIN, TROUGH | Timed | 05/06/2019 | | Results for this | | | | 1:19 PM | | procedure are in the | | | | PST | | results section. | + +--------+ + + + | POC GLUCOSE | Routin | 05/06/2019 | | Results for this | | | e | 12:17 PM | | procedure are in the | | | | PST | | results section. | + +--------+ + + + | CULTURE, BLOOD | Routin | 05/06/2019 | | Results for this | | | e | 6:50 AM | | procedure are in the | | | | PST | | results section. | + +--------+ + + + | CULTURE, BLOOD | Routin | 05/06/2019 | | Results for this | | | e | 6:50 AM | | procedure are in the | | | | PST | | results section. | + +--------+ + + + | CBC NO DIFFERENTIAL | Routin | 05/06/2019 | | Results for this | | | e | 6:50 AM | | procedure are in the | | | | PST | | results section. | + +--------+ + + + | BASIC METABOLIC | Routin | 05/06/2019 | | Results for this | | PANEL | e | 6:50 AM | | procedure are in the | | | | PST | | results section. | + +--------+ + + + | POC GLUCOSE | Routin | 05/05/2019 | | Results for this | | | e | 8:19 PM | | procedure are in the | | | | PST | | results section. | + +--------+ + + + | POC GLUCOSE | Routin | 05/05/2019 | | Results for this | | | e | 6:04 PM | | procedure are in the | | | | PST | | results section. | + +--------+ + + + | CBC WITH | Routin | 05/05/2019 | | Results for this | | DIFFERENTIAL | e | 4:39 AM | | procedure are in the | | | | PST | | results section. | + +--------+ + + + | MAGNESIUM | Routin | 05/05/2019 | | Results for this | | | e | 4:39 AM | | procedure are in the | | | | PST | | results section. | + +--------+ + + + | HEMOGLOBIN A1C | Routin | 05/05/2019 | | Results for this | | | e | 4:39 AM | | procedure are in the | | | | PST | | results section. | + +--------+ + + + | BASIC METABOLIC | Routin | 05/05/2019 | | Results for this | | PANEL | e | 4:39 AM | | procedure are in the | | | | PST | | results section. | + +--------+ + + + | EXTRA LAVENDER TOP | Routin | 05/05/2019 | | Results for this | | TUBE | e | 12:02 AM | | procedure are in the | | | | PST | | results section. | + +--------+ + + + | BASIC METABOLIC | Timed | 05/05/2019 | | Results for this | | PANEL | | 12:02 AM | | procedure are in the | | | | PST | | results section. | + +--------+ + + + | XR FOOT LEFT 2 VW | STAT | 05/04/2019 | | Results for this | | | | 11:10 PM | | procedure are in the | | | | PST | | results section. | + +--------+ + + + | POC GLUCOSE | Routin | 05/04/2019 | | Results for this | | | e | 10:48 PM | | procedure are in the | | | | PST | | results section. | + +--------+ + + + | CULTURE, WOUND, | STAT | 05/04/2019 | | Results for this | | SMEAR | | 10:09 PM | | procedure are in the | | | | PST | | results section. | + +--------+ + + + | CULTURE, WOUND, | STAT | 05/04/2019 | | Results for this | | SMEAR | | 10:09 PM | | procedure are in the | | | | PST | | results section. | + +--------+ + + + | CULTURE, ANAEROBIC | STAT | 05/04/2019 | | Results for this | | | | 10:09 PM | | procedure are in the | | | | PST | | results section. | + +--------+ + + + | AMPUTATION TOE | | 05/04/2019 | Cellulitis of | | | | | 9:47 PM | foot; Toe necrosis | | | | | PST | ([facility]) | | + +--------+ + + + | POC GLUCOSE | Routin | 05/04/2019 | | Results for this | | | e | 8:40 PM | | procedure are in the | | | | PST | | results section. | + +--------+ + + + | CULTURE, BLOOD | STAT | 05/04/2019 | | Results for this | | | | 4:31 PM | | procedure are in the | | | | PST | | results section. | + +--------+ + + + | XR FOOT LEFT 3 + VW | STAT | 05/04/2019 | | Results for this | | | | 4:21 PM | | procedure are in the | | | | PST | | results section. | + +--------+ + + + | BLOOD CULTURE GM | Routin | 05/04/2019 | | Results for this | | POSITIVE PATHOGEN | e | 4:18 PM | | procedure are in the | | PANEL, PCR | | PST | | results section. | + +--------+ + + + | CULTURE, BLOOD | STAT | 05/04/2019 | | Results for this | | | | 4:18 PM | | procedure are in the | | | | PST | | results section. | + +--------+ + + + | PROTIME INR | STAT | 05/04/2019 | | Results for this | | | | 4:18 PM | | procedure are in the | | | | PST | | results section. | + +--------+ + + + | CBC WITH | STAT | 05/04/2019 | | Results for this | | DIFFERENTIAL | | 4:18 PM | | procedure are in the | | | | PST | | results section. | + +--------+ + + + | LIPASE | STAT | 05/04/2019 | | Results for this | | | | 4:18 PM | | procedure are in the | | | | PST | | results section. | + +--------+ + + + | LACTIC ACID | Routin | 05/04/2019 | | Results for this | | | e | 4:18 PM | | procedure are in the | | | | PST | | results section. | + +--------+ + + + | COMPREHENSIVE | STAT | 05/04/2019 | | Results for this | | METABOLIC PANEL | | 4:18 PM | | procedure are in the | | | | PST | | results section. | + +--------+ + + + | ED INFORMATION | Routin | 05/04/2019 | | | | EXCHANGE | e | 2:45 PM | | | | | | PST | | | + +--------+ + + + +---+--------+ | | | | | Proced | | | ure | | | Note - | | | Gordy, | | | Lab In | | | | | | Hlseve | | | n - | | | | | | 2019 | | | 2:46 | | | PM PST | | | | | | Format | | | ting | | | of | | | this | | | note | | | might | | | be | | | differ | | | ent | | | from | | | the | | | origin | | | al.COL | | | LECTIV | | | E?NOTI | | | FICATI | | | ON?12/ | | | 12/201 | | | 9 | | | 14:45? | | | CATER, | | | | | | PAUL | | | | | | R?MRN: | | | | | | [id number] | | | [id number] | | | riteri | | | a Met | | | | | | PDMPSe | | | curity | | | and | | | Safety | | | No | | | recent | | | | | | Securi | | | ty | | | Events | | | | | | curren | | | tly on | | | | | | fileED | | | Care | | | Guidel | | | inesTh | | | ere | | | are | | | curren | | | tly no | | | ED | | | Care | | | Guidel | | | chris | | | for | | | this | | | patien | | | t. | | | Please | | | check | | | your | | | facili | | | ty's | | | medica | | | l | | | record | | | s | | | system | | | .Presc | | | riptio | | | n Drug | | | | | | Report | | | (12 | | | Mo.)Rx | | | | | | Detail | | | sFill | | | Date | | | Drug | | | Descri | | | ption | | | Qty. | | | Prescr | | | iber | | | CS MED | | | | | | 2019- | | | 1-22 | | | HYDROC | | | [facility]- | | | [facility] | | | [place] | | | 10-325 | | | MG | | | 112 | | | YONI | | | [place] | | | 2 40 | | | 2019 | | | 0-25 | | | HYDROC | | | [facility]- | | | [facility] | | | [place] | | | 10-325 | | | MG | | | 112 | | | YONI | | | [place] | | | 2 40 | | | 2019- | | | 9-27 | | | HYDROC | | | [place]- | | | [facility] | | | [place] | | | [address] | | | MG | | | 112 ? | | | VETERA | | | NS | | | ADMINI | | | STRATI | | | ON 2 | | | 40 | | | 2019 | | | 8-30 | | | HYDROC | | | [place]- | | | [facility] | | | [place] | | | [address] | | | MG | | | 112 | | | YANDEL | | | O | | | FERRAN | | | CO 2 | | | 40 | | | | | | 7-29 | | | HYDROC | | | [facility]- | | | [facility] | | | [place] | | | [address] | | | MG | | | 112 | | | YANDEL | | | O | | | FERRAN | | | CO 2 | | | 40 | | | | | | 6-27 | | | HYDROC | | | [facility]- | | | [facility] | | | [place] | | | [address] | | | MG | | | 112 | | | YANDEL | | | O | | | FERRAN | | | CO 2 | | | 40 | | | | | | 5-23 | | | HYDROC | | | [facility]- | | | [facility] | | | [place] | | | [address] | | | MG | | | 112 | | | YANDEL | | | O | | | FERRAN | | | CO 2 | | | 40 | | | | | | 4-26 | | | HYDROC | | | [facility]- | | | [facility] | | | [place] | | | [address] | | | MG | | | 112 | | | YANDEL | | | O | | | FERRAN | | | CO 2 | | | 40 | | | | | | 3-26 | | | HYDROC | | | [facility]- | | | [facility] | | | [place] | | | 10-325 | | | MG | | | 112 | | | [facility] | | | BLUE | | | 2 40 | | | 2019-0 | | | 2-26 | | | HYDROC | | | [facility]- | | | [facility] | | | [place] | | | 10-325 | | | MG | | | 112 | | | YANDEL | | | O | | | FERRAN | | | CO 2 | | | 40 | | | 2019-0 | | | 1-29 | | | HYDROC | | | [facility]- | | | [facility] | | | [place] | | | 10-325 | | | MG | | | 112 | | | YANDEL | | | O | | | FERRAN | | | CO 2 | | | 40 | | | 2018-1 | | | 2-28 | | | HYDROC | | | [place]- | | | [facility] | | | [place] | | | [address] | | | MG | | | 112 | | | YANDEL | | | O | | | FERRAN | | | CO 2 | | | 40 Rx | | | [facility] | | | yMetri | | | c | | | Count | | | CS | | | II-V | | | Rx 12 | | | CS-II | | | Rx 12 | | | Quanti | | | ty | | | Dispen | | | sed | | | 1,344 | | | Unique | | | | | | Prescr | | | ibers | | | 4 | | | Unique | | | | | | Pharma | | | cies 1 | | | | | | Benzos | | | 0 | | | Opioid | | | s 12 | | | Long | | | Acting | | | | | | Opioid | | | s 0 | | | E.D. | | | Visit | | | Count | | | (12 | | | mo.)Fa | | | cility | | | | | | Visits | | | Low | | | Acuity | | | | | | Provid | | | ence | | | St[facility] | | | [facility] | [facility] | | | l | | | Center | | | 2 0 | | | Total | | | 2 0 | | | Note: | | | Visits | | | | | | indica | | | te | | | total | | | known | | | visits | | | . | | | Medica | | | id Low | | | | | | Acuity | | | Dx | | | are | | | the | | | number | | | of | | | primar | | | y | | | diagno | | | ses on | | | the | | | Medica | | | id's | | | Low | | | Acuity | | | dx | | | list. | | | | | | Recent | | | | | | Emerge | | | ncy | | | Depart | | | ment | | | Visit | | | [facility] | | | yDate | | | Facili | | | ty | | | City | | | State | | | Type | | | Diagno | | | ses or | | | Chief | | | | | | Compla | | | int | | | Dec | | | 12, | | | 2019 | | | Provid | | | ence | | | [facility] | | [place] | | | [place] | | | Emerge | | | ncy | | | | | | infect | | | ed toe | | | Sep | | | 26, | | | 2019 | | | Provid | | | ence | | | [facility] | [facility] | | [place] 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 | | | mellit | | | us | | | with | | | other | | | skin | | | compli | | | cation | | | s | | | Local | | | infect | | | ion of | | | the | | | skin | | | and | | | subcut | | | aneous | | | | | | tissue | | | , unsp | | | | | | Cutane | | | ous | | | absces | | | s of | | | left | | | foot | | | | | | Cellul | | | itis | | | of | | | left | | | lower | | | limb | | | Recent | | | | | | Inpati | | | ent | | | Visit | | | [facility] | | | yDate | | | Facili | | | ty | | | City | | | State | | | Type | | | Diagno | | | ses or | | | Chief | | | | | | Compla | | | int | | | Sep | | | 26, | | | 2019 | | | Provid | | | ence | | | [facility] | | | [facility] | | | [place] | | | [place] | | | Medica | | | l | | | Surgic | | | al | | | 1 Type | | | 2 | | | diabet | | | es | | | mellit | | | us | | | with | | | other | | | skin | | | compli | | | cation | | | s | | | Cellul | | | itis | | | of | | | left | | | lower | | | limb | | | | | | Local | | | infect | | | ion of | | | the | | | skin | | | and | | | subcut | | | aneous | | | | | | tissue | | | , unsp | | | | | | Cutane | | | ous | | | absces | | | s of | | | left | | | foot | | | | | | Periph | | | eral | | | vascul | | | ar | | | diseas | | | e, | | | unspec | | | ified | | | | | | Gastro | | | -esoph | | | ageal | | | reflux | | | | | | diseas | | | e | | | withou | | | t | | | esopha | | | gitis | | | 1 | | | 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 | | | Collec | | | tive | | | Portal | | | This | | | patien | | | t has | | | regist | | | ered | | | at the | | | | | | Provid | | | ence | | | [facility] | | | [facility] | | | l | | | Center | | | | | | Emerge | | | ncy | | | Depart | | | ment | | | For | | | more | | | inform | | | ation | | | visit: | | | | | | https: | | | //secu | | | re.col | | | lectiv | | | emedic | | | al.com | | | /notif | | | [id number] | | | [id number] | | | [id number] | | | f7-afc | | | [id number] | | | [id number] | | | 99 | | | PLEASE | | | NOTE: | | | 1. | | | Any | | | care | | | recomm | | | endati | | | ons | | | and | | | other | | | clinic | | | al | | | inform | | | ation | | | are | | | provid | | | ed as | | | guidel | | | chris | | | or for | | | | | | histor | | | ical | | | purpos | | | es | | | only, | | | and | | | provid | | | ers | | | should | | | | | | exerci | | | se | | | their | | | own | | | clinic | | | al | | | judgme | | | nt | | | when | | | provid | | | ing | | | care. | | | 2. | | | You | | | may | | | only | | | use | | | this | | | inform | | | ation | | | for | | | purpos | | | es of | | | treatm | | | ent, | | | paymen | | | t or | | | health | | | care | | | operat | | | ions | | | activi | | | ties, | | | and | | | subjec | | | t to | | | the | | | limita | | | tions | | | of | | | applic | | | able | | | Collec | | | tive | | | Polici | | | es. | | | 3. | | | You | | | should | | | | | | consul | | | t | | | direct | | | ly | | | with | | | the | | | organi | | | zation | | | that | | | provid | | | ed a | | | care | | | guidel | | | ine or | | | other | | | | | | clinic | | | al | | | histor | | | y with | | | any | | | questi | | | ons | | | about | | | additi | | | onal | | | inform | | | ation | | | or | | | accura | | | cy or | | | comple | | | teness | | | of | | | inform | | | ation | | | provid | | | ed.? | | | 2019 | | | Collec | | | tive | | | Medica | | | l | | | [employer] | | | logies | | | , [employer] | | | - | | | [email or web address] | | | llecti | | | vemedi | | | [email or web address] | | | m | +---+--------+ documented in this encounter Results POC Glucose (05/08/2019 12:39 PM PST) + +-------+ + + + | Component | Value | Ref Range | Performed | Pathologist | | | | | At | Signature | + +-------+ + + + | Glucose, | 109 | 70 - 109 mg/dL | [facility] | | | POC | | | [facility] | | | | | | [facility] [...] + + | [facility] | [address] | [place] | [phone] | | [facility] | | [address] | | | - LABORATORY | | | | + + + + + Basic Metabolic Panel (05/08/2019 6:40 AM PST) + + + + + + | Component | Value | Ref Range | Performed | Pathologist | | | | | At | Signature | + + + + + + | Na | 140 | 136 - 145 | [facility] | | | | | mmol/L | [facility] | | [facility] | [facility] - | | | | | | LABORATORY | | + + + + + + | K | 3.3 (L) | 3.4 - 5.1 | [facility] | | | | | mmol/L | [facility] | | [facility] | C[facility] - | | | | | | LABORATORY | | + + + + + + | Cl | 109 (H) | 98 - 107 mmol/L | [facility] | [facility] | | | | | | CENTER - | | | | | | LABORATORY | | + + + + + + | CO2 | 24 | 20 - 31 mmol/L | [facility] | | | | | | CENTER - | | | | | | LABORATORY | | + + + + + + | Anion Gap | 7 | 3 - 16 mmol/L | [facility] | [facility] | | | | | | CENTER - | | | | | | LABORATORY | | + + + + + + | Glucose | 137 (H) | 60 - 106 mg/dL | [facility] | [facility] | [facility] | | | | | | CENTER - | | | | | | LABORATORY | | + + + + + + | BUN | 9 | 9 - 23 mg/dL | [facility] | | | | | | [facility] | | | | | | [facility] | | | | | | CENTER - | | | | | | LABORATORY | | + + + + + + | Creatinine | 1.32 (H) | 0.70 - 1.30 | [facility] | | | | | mg/dL | [facility] | | | | | | [facility] | | | | | | CENTER - | | | | | | LABORATORY | | + + + + + + | eGFR if not | 53 (L)Comment: | >=60 | [facility] | | | | GLOMERULAR FILTRATION | mL/min/1.73m2 | [facility] | | | [facility] | RATE,ESTIMATED | | MEDICAL | | | | mL/min/1.94r9Buyr than | | CENTER - | | [...] + + + + | Calcium | 8.3 (L) | 8.7 - 10.4 | [facility] | | | | | mg/dL | [facility] | | [facility] | [facility] | | | | | | CENTER - | | | | | | LABORATORY | | + + + + + + | BUN/Creatin | 6.8 | | [facility] | | | ine Ratio | | | [facility] | | | | | | MEDICAL [...] | + + + + + | [facility] | [address] | [place] | [phone] | | [facility] | | [address] | | | - LABORATORY | | | | + + + + + CBC no Differential (05/08/2019 6:40 AM PST) + + + + + + | Component | Value | Ref Range | Performed | Pathologist | | | | | At | Signature | + + + + + + | WBC | 10.3 | 4.0 - 11.0 K/uL | [facility] | | | | | | [facility] | | | | | | [facility] | | | | | | C[facility] - | | | | | | LABORATORY | | + + + + + + | RBC | 4.21 (L) | 4.30 - 5.70 | [facility] | | | | | M/uL | [facility] | | | | | | [facility]ICAL | | | | | | CENTER - | | | | | | LABORATORY | | + + + + + + | Hemoglobin | 13.3 (L) | 13.5 - 18.0 | [facility] | | | | | g/dL | . [facility] | | | | | | MEDICAL | | | | | | CENTER - | | | | | | LABORATORY | | + + + + + + | Hematocrit | 39.2 (L) | 40.0 - 51.0 % | [facility] | | | | | [facility] | | [facility] | [facility] | | | | | | CENTER - | | | | | | LABORATORY | | + + + + + + | MCV | 93.1 | 83.0 - 101.0 fL | [facility] | | [facility] | [facility] | [facility] | | | | | | CENTER - | | | | | | LABORATORY | | + + + + + + | MCH | 31.6 | 28.0 - 35.0 pg | [facility] | | | | | [facility] | | | [facility] | [facility] | | | | | | CENTER - | | | | | | LABORATORY | | + + + + + + | MCHC | 33.9 | 32.0 - 36.0 | [facility] | | | | | g/dL | [facility] | | | | | | [facility] | | | | | | CENTER - | | | | | | LABORATORY | | + + + + + + | RDW-CV | 13.3 | <15.0 % | [facility] | | | | | [facility] | | | [facility] | [facility] | | | | | | CENTER - | | | | | | LABORATORY | | + + + + + + | RDW-SD | 45.2 | 35.1 - 46.3 fL | [facility] | | | | | [facility] | | | [facility] | [facility] | | | | | | CENTER - | | | | | | LABORATORY | | + + + + + + | Platelet | 359 | 140 - 440 K/uL | [facility] | | | Count | | | [facility] | | | | | | MEDICAL | | | | | | CENTER - | | | | | | LABORATORY | | + + + + + + | MPV | 11.9 | 6.5 - 12.4 fL | [facility] | | | | | | [facility] | | | | | | MEDICAL | | | | | | CENTER - | | | | | | LABORATORY | | + + + + + + | % nRBC | 0 | 0 - 2 per 100 | [facility] | | | | | WBCs | [facility] | | | | | | MEDICAL | | | | | | CENTER - | | | | | | LABORATORY | | + + + + + + | Absolute | 0.00 | 0.00 - 0.01 | [facility] | | | nRBC | | K/uL | [facility] | | | | | | MEDICAL [...] [address] | [place] | [phone] | | [facility] | | [address] | | | - LABORATORY | | | | + + + + + POC Glucose (05/07/2019 8:50 PM PST) + +---------+ + + + | Component | Value | Ref Range | Performed | Pathologist | | | | | At | Signature | + +---------+ + + + | Glucose, | 120 (H) | 70 - 109 mg/dL | [facility] | | | POC | | | [facility] | | | | | | MEDICAL | | | | | | CENTER - | | | | | | LABORATORY | | + +---------+ + + + + + | Specimen | + + | Blood | + + + + + + + | Performing | Address | City/State/Zipcode | Phone Number | | Organization | | | | + + + + + | [facility] | [address] | [place] | [phone] | | [facility] | | [address] | | | - LABORATORY | | | | + + + + + XR Chest AP Portable (05/07/2019 1:59 PM PST) + + | Specimen | + + | | + + + + + | Impressions | Performed At | + + + | No acute intrathoracic abnormality identified. Right upper | [facility] | | extremity approach PICC tip terminates in the mid superior vena cava. | | | Dictated and Signed by: Jaxson Nettles MD Electronically | | | signed: 05/07/2019 3:38 PM | | + + + + + + | Narrative | Performed At | + + + | XR CHEST AP PORTABLE 05/07/2019 1:42 PM HISTORY: picc line | [facility] | | placement. COMPARISON: 03/18/2017 Findings: The bilateral | | | lungs are clear with no evidence for pleural effusion or | | | pneumothorax. Heart size is within normal limits. Pulmonary | | | vasculature is within normal limits. Aorta is normal. Mediastinum is | | | unremarkable. No acute osseous or soft tissue abnormality identified. | | | | | + + + + + | Procedure Note | + + | Gordy, Rad Results In - 05/07/2019 3:41 PM PST XR CHEST AP PORTABLE 05/07/2019 1:42 PM | | | | HISTORY: picc line placement. | | | | COMPARISON: 03/18/2017 | | | | Findings: | | The bilateral lungs are clear with no evidence for pleural effusion or | | pneumothorax. Heart size is within normal limits. Pulmonary vasculature is | | within normal limits. Aorta is normal. Mediastinum is unremarkable. No acute | | osseous or soft tissue abnormality identified. | | | | IMPRESSION: | | No acute intrathoracic abnormality identified. | | | | Right upper extremity approach PICC tip terminates in the mid superior vena | | cava. | | | | Dictated and Signed by: Jaxson Nettles MD | | Electronically signed: 05/07/2019 3:38 PM | + + + +---------+ + + | Performing | Address | City/State/Zipcode | Phone Number | | Organization | | | | + +---------+ + + | [facility] | | | | + +---------+ + + POC Glucose (05/07/2019 12:18 PM PST) + +-------+ + + + | Component | Value | Ref Range | Performed | Pathologist | | | | | At | Signature | + +-------+ + + + | Glucose, | 103 | 70 - 109 mg/dL | [facility] | | | POC | | | [facility] | | | | | | MEDICAL [...] [address] | [place] | [phone] | | [facility] | | [address] | | | - LABORATORY | | | | + + + + + POC Glucose (05/07/2019 6:54 AM PST) + +-------+ + + + | Component | Value | Ref Range | Performed | Pathologist | | | | | At | Signature | + +-------+ + + + | Glucose, | 101 | 70 - 109 mg/dL | [facility] | | | POC | | | [facility] | | | | | | MEDICAL [...] [address] | [place] | [phone] | | [facility] | | [address] | | | - LABORATORY | | | | + + + + + Basic Metabolic Panel (05/07/2019 5:03 AM PST) + + + + + + | Component | Value | Ref Range | Performed | Pathologist | | | | | At | Signature | + + + + + + | Na | 135 (L) | 136 - 145 | [facility] | | | | | mmol/L | [facility] | | | | | | MEDICAL | | | | | | CENTER - | | | | | | LABORATORY | | + + + + + + | K | 3.6 | 3.4 - 5.1 | [facility] | | | | | mmol/L | [facility] | | | [facility] | | MEDICAL | | | | | | CENTER - | | | | | | LABORATORY | | + + + + + + | Cl | 103 | 98 - 107 mmol/L | [facility] | | | | | | [facility] | | | | | | MEDICAL | | | | | | CENTER - | | | | | | LABORATORY | | + + + + + + | CO2 | 25 | 20 - 31 mmol/L | [facility] | | | | | | [facility] | | | | | | MEDICAL | | | | | | CENTER - | | | | | | LABORATORY | | + + + + + + | Anion Gap | 7 | 3 - 16 mmol/L | [facility] | | | | | | [facility] | | | | | | MEDICAL | | | | | | CENTER - | | | | | | LABORATORY | | + + + + + + | Glucose | 113 (H) | 60 - 106 mg/dL | [facility] | | | | | | [facility] | | | | | | MEDICAL | | | | | | CENTER - | | | | | | LABORATORY | | + + + + + + | BUN | 6 (L) | 9 - 23 mg/dL | [facility] | | | | | | [facility] | | | | | | MEDICAL | | | | | | CENTER - | | | | | | LABORATORY | | + + + + + + | Creatinine | 0.64 (L) | 0.70 - 1.30 | [facility] | | | | | mg/dL | [facility] | | | | | | MEDICAL | | | | | | CENTER - | | | | | | LABORATORY | | + + + + + + | eGFR if not | >60Comment: GLOMERULAR | >=60 | [facility] | | | | FILTRATION | mL/min/1.73m2 | [facility] | | | [facility] | RATE,ESTIMATED | | MEDICAL | | | | mL/min/1.72v8Ofms than | | CENTER - | | [...] + + + + | Calcium | 8.8 | 8.7 - 10.4 | [facility] | | | | | mg/dL | [facility] | | | | | | MEDICAL | | | | | | CENTER - | | | | | | LABORATORY | | + + + + + + | BUN/Creatin | 9.4 | | [facility] | | | ine Ratio | | | [facility] | | | | | | MEDICAL [...] [address] | [place] | [phone] | | [facility] | | [address] | | | - LABORATORY | | | | + + + + + CBC no Differential (05/07/2019 5:03 AM PST) + +-------+ + + + | Component | Value | Ref Range | Performed | Pathologist | | | | | At | Signature | + +-------+ + + + | WBC | 9.9 | 4.0 - 11.0 K/uL | [facility] | | | | | [facility] | | [facility] | MEDICAL | | | | | | CENTER - | | | | | | LABORATORY | | + +-------+ + + + | RBC | 4.76 | 4.30 - 5.70 | [facility] | | | | | M/uL | [facility] | | | | | | MEDICAL | | | | | | CENTER - | | | | | | LABORATORY | | + +-------+ + + + | Hemoglobin | 14.9 | 13.5 - 18.0 | [facility] | | | | | g/dL | [facility] | | | [facility] | | MEDICAL | | | | | | CENTER - | | | | | | LABORATORY | | + +-------+ + + + | Hematocrit | 44.3 | 40.0 - 51.0 % | [facility] | | | | | | [facility] | | | [facility] | | MEDICAL | | | | | | CENTER - | | | | | | LABORATORY | | + +-------+ + + + | MCV | 93.1 | 83.0 - 101.0 fL | [facility] | | | | | | [facility] | | [facility] | [facility] | [facility]ICAL | | | | | | CENTER - | | | | | | LABORATORY | | + +-------+ + + + | MCH | 31.3 | 28.0 - 35.0 pg | [facility] | | | | | | [facility] | | | [facility] | [facility]ICAL | | | | | | CENTER - | | | | | | LABORATORY | | + +-------+ + + + | MCHC | 33.6 | 32.0 - 36.0 | [facility] | | | | | g/dL | [facility] | | | | | | [facility] | | | | | | C[facility] - | | | | | | LABORATORY | | + +-------+ + + + | RDW-CV | 13.2 | <15.0 % | [facility] | [facility] | | | [facility] | | | | | | [facility] | | | | | | [facility] - | | | | | | LABORATORY | | + +-------+ + + + | RDW-SD | 45.5 | 35.1 - 46.3 fL | [facility] | | | | | | [facility] | | | | | | [facility] - | | | | | | LABORATORY | | + +-------+ + + + | Platelet | 332 | 140 - 440 K/uL | [facility] | | | Count | | | [facility] | | | | | | [facility] | | | | | | [facility]ENTER - | | | | | | LABORATORY | | + +-------+ + + + | MPV | 12.0 | 6.5 - 12.4 fL | [facility] | | | | | [facility] | | | | | | [facility] | | | | | | [facility] - | | | | | | LABORATORY | | + +-------+ + + + | % nRBC | 0 | 0 - 2 per 100 | [facility] | | | | | WBCs | [facility] | | | | | | [facility] | | | | | | CENTER - | | | | | | LABORATORY | | + +-------+ + + + | Absolute | 0.00 | 0.00 - 0.01 | [facility] | | | nRBC | | K/uL | [facility] | | | | [...] + | [facility] | [address] | [place] | [phone] | | [facility] | | [address] | | | - LABORATORY | | | | + + + + + POC Glucose (05/06/2019 8:27 PM PST) + +---------+ + + + | Component | Value | Ref Range | Performed | Pathologist | | | | | At | Signature | + +---------+ + + + | Glucose, | 130 (H) | 70 - 109 mg/dL | [facility] | | | POC | | | [facility] | | | | | | [facility] | | | | | | [facility] - | | | | | | LABORATORY | | + +---------+ + + + + + | Specimen | + + | Blood | + + + + + + + | Performing | Address | City/State/Zipcode | Phone Number | | Organization | | | | + + + + + | [facility] | [address] | [place] | [phone] | | [facility] | | [address] | | | - LABORATORY | | | | + + + + + POC Glucose (05/06/2019 4:33 PM PST) + +---------+ + + + | Component | Value | Ref Range | Performed | Pathologist | | | | | At | Signature | + +---------+ + + + | Glucose, | 144 (H) | 70 - 109 mg/dL | [facility] | | | POC | | | [facility] | | | | | | [facility] | | | | | | CENTER - | | | | | | LABORATORY | | + +---------+ + + + + + | Specimen | + + | Blood | + + + + + + + | Performing | Address | City/State/Zipcode | Phone Number | | Organization | | | | + + + + + | [facility] | [address] | [place], [place] | [phone] | | [facility] | | [address] | | | - LABORATORY | | | | + + + + + Vancomycin, Trough (05/06/2019 1:19 PM PST) + + + + + + | Component | Value | Ref Range | Performed | Pathologist | | | | | At | Signature | + + + + + + | Date of | | | [facility] | | | Last Dose | | | [facility] | | | | | | [facility] | | | | | | CENTER - | | | | | | LABORATORY | | + + + + + + | Time of | | | [facility] | | | Last Dose | | | [facility] | | | | | | [facility] | | | | | | [facility]ENTER - | | | | | | LABORATORY | | + + + + + + | Vancomycin | 16.9 (H) | 5.0 - 10.0 | [facility] | | | Trough | | ug/mL | [facility] | | | [facility] | | MEDICAL [...] + | [facility] | [address] | [place] | [phone] | | [facility] | | [address] | | | - LABORATORY | | | | + + + + + POC Glucose (05/06/2019 12:17 PM PST) + +---------+ + + + | Component | Value | Ref Range | Performed | Pathologist | | | | | At | Signature | + +---------+ + + + | Glucose, | 142 (H) | 70 - 109 mg/dL | [facility] | | | POC | | | [facility] | | | | | | MEDICAL | | | | | | CENTER - | | | | | | LABORATORY | | + +---------+ + + + + + | Specimen | + + | Blood | + + + + + + + | Performing | Address | City/State/Zipcode | Phone Number | | Organization | | | | + + + + + | [facility] | [address] | [place] | [phone] | | [facility] | | [address] | | | - LABORATORY | | | | + + + + + Culture, Blood (05/06/2019 6:50 AM PST) + + + + + + | Component | Value | Ref Range | Performed | Pathologist | | | | | At | Signature | + + + + + + | Culture | No growth after 5 days | | [facility] | | | | incubation. | | [facility] | | | | | | [facility] | | | | | | C[facility] - | | | | | | LABORATORY | | + + + + + + + + | Specimen | + + | Blood - Peripheral | | blood specimen | | (specimen) | + + + + + + + | Performing | Address | City/State/Zipcode | Phone Number | | Organization | | | | + + + + + | [facility] | [address] | [place] | [phone] | | [facility] | | [address] | | | - LABORATORY | | | | + + + + + Culture, Blood (05/06/2019 6:50 AM PST) + + + + + + | Component | Value | Ref Range | Performed | Pathologist | | | | | At | Signature | + + + + + + | Culture | No growth after 5 days | | [facility] | | | | incubation. | | [facility] | | | | | | MEDICAL | | | | | | CENTER - | | | | | | LABORATORY | | + + + + + + + + | Specimen | + + | Blood - Peripheral | | blood specimen | | (specimen) | + + + + + + + | Performing | Address | City/State/Zipcode | Phone Number | | Organization | | | | + + + + + | [facility] | [address] | [place] | [phone] | | [facility] | | [address] | | | - LABORATORY | | | | + + + + + Basic Metabolic Panel (05/06/2019 6:50 AM PST) + + + + + + | Component | Value | Ref Range | Performed | Pathologist | | | | | At | Signature | + + + + + + | Na | 135 (L) | 136 - 145 | [facility] | | | | | mmol/L | [facility] | | | | | | MEDICAL | | | | | | CENTER - | | | | | | LABORATORY | | + + + + + + | K | 3.7 | 3.4 - 5.1 | [facility] | | | | | mmol/L | [facility] | | | | | | MEDICAL | | | | | | CENTER - | | | | | | LABORATORY | | + + + + + + | Cl | 106 | 98 - 107 mmol/L | [facility] | | | | | | [facility] | | | | | | MEDICAL | | | | | | CENTER - | | | | | | LABORATORY | | + + + + + + | CO2 | 24 | 20 - 31 mmol/L | [facility] | | | | | | [facility] | | | | | | MEDICAL | | | | | | CENTER - | | | | | | LABORATORY | | + + + + + + | Anion Gap | 5 | 3 - 16 mmol/L | [facility] | | | | | | [facility] | | | | | | MEDICAL | | | | | | CENTER - | | | | | | LABORATORY | | + + + + + + | Glucose | 122 (H) | 60 - 106 mg/dL | [facility] | | | | | | [facility] | | | | | | MEDICAL | | | | | | CENTER - | | | | | | LABORATORY | | + + + + + + | BUN | 6 (L) | 9 - 23 mg/dL | [facility] | | | | | | [facility] | | | | | | MEDICAL | | | | | | CENTER - | | | | | | LABORATORY | | + + + + + + | Creatinine | 0.69 (L) | 0.70 - 1.30 | [facility] | | | [...] mL/min/1.73m2 | [facility] | | | [facility] | RATE,ESTIMATED | | MEDICAL | | | | mL/min/1.66y1Wqjh than | | CENTER - | | [...] + + + + | Calcium | 8.2 (L) | 8.7 - 10.4 | [facility] | | | | | mg/dL | [facility] | | | | | | MEDICAL | | | | | | CENTER - | | | | | | LABORATORY | | + + + + + + | BUN/Creatin | 8.7 | | [facility] | | | ine Ratio | | | [facility] | | | | | | MEDICAL [...] [address] | [place] | [phone] | | [facility] | | [address] | | | - LABORATORY | | | | + + + + + CBC no Differential (05/06/2019 6:50 AM PST) + + + + + + | Component | Value | Ref Range | Performed | Pathologist | | | | | At | Signature | + + + + + + | WBC | 9.5 | 4.0 - 11.0 K/uL | [facility] | | | | | | [facility] | | | | | | MEDICAL | | | | | | CENTER - | | | | | | LABORATORY | | + + + + + + | RBC | 4.32 | 4.30 - 5.70 | [facility] | | | | | M/uL | [facility] | | | | | | MEDICAL | | | | | | CENTER - | | | | | | LABORATORY | | + + + + + + | Hemoglobin | 13.9 | 13.5 - 18.0 | [facility] | | | | | g/dL | [facility] | | | | | | MEDICAL | | | | | | CENTER - | | | | | | LABORATORY | | + + + + + + | Hematocrit | 41.3 | 40.0 - 51.0 % | [facility] | | | | | | [facility] | | | | | | MEDICAL | | | | | | CENTER - | | | | | | LABORATORY | | + + + + + + | MCV | 95.6 | 83.0 - 101.0 fL | [facility] | | | | | | [facility] | | | | | | MEDICAL | | | | | | CENTER - | | | | | | LABORATORY | | + + + + + + | MCH | 32.2 | 28.0 - 35.0 pg | [facility] | | | | | | [facility] | | | | | | MEDICAL | | | | | | CENTER - | | | | | | LABORATORY | | + + + + + + | MCHC | 33.7 | 32.0 - 36.0 | [facility] | | | | | g/dL | [facility] | | | | | | MEDICAL | | | | | | CENTER - | | | | | | LABORATORY | | + + + + + + | RDW-CV | 13.5 | <15.0 % | [facility] | | | | | | [facility] | | | | | | MEDICAL | | | | | | CENTER - | | | | | | LABORATORY | | + + + + + + | RDW-SD | 47.8 (H) | 35.1 - 46.3 fL | [facility] | | | | | | [facility] | | | | | | MEDICAL | | | | | | CENTER - | | | | | | LABORATORY | | + + + + + + | Platelet | 287 | 140 - 440 K/uL | [facility] | | | Count | | | [facility] | | | | | | MEDICAL | | | | | | CENTER - | | | | | | LABORATORY | | + + + + + + | MPV | 11.8 | 6.5 - 12.4 fL | [facility] | | | | | | [facility] | | | | | | MEDICAL | | | | | | CENTER - | | | | | | LABORATORY | | + + + + + + | % nRBC | 0 | 0 - 2 per 100 | [facility] | | | | | WBCs | [facility] | | | | | | MEDICAL | | | | | | CENTER - | | | | | | LABORATORY | | + + + + + + | Absolute | 0.00 | 0.00 - 0.01 | [facility] | | | nRBC | | K/uL | [facility] | | | | | | MEDICAL [...] [address] | [place] | [phone] | | [facility] | | [address] | | | - LABORATORY | | | | + + + + + POC Glucose (05/05/2019 8:19 PM PST) + +---------+ + + + | Component | Value | Ref Range | Performed | Pathologist | | | | | At | Signature | + +---------+ + + + | Glucose, | 134 (H) | 70 - 109 mg/dL | [facility] | | | POC | | | [facility] | | | | | | MEDICAL | | | | | | CENTER - | | | | | | LABORATORY | | + +---------+ + + + + + | Specimen | + + | Blood | + + + + + + + | Performing | Address | City/State/Zipcode | Phone Number | | Organization | | | | + + + + + | [facility] | [address] | [place] | [phone] | | [facility] | | [address] | | | - LABORATORY | | | | + + + + + POC Glucose (05/05/2019 6:04 PM PST) + +---------+ + + + | Component | Value | Ref Range | Performed | Pathologist | | | | | At | Signature | + +---------+ + + + | Glucose, | 178 (H) | 70 - 109 mg/dL | [facility] | | | POC | | | [facility] | | | | | | MEDICAL | | | | | | CENTER - | | | | | | LABORATORY | | + +---------+ + + + + + | Specimen | + + | Blood | + + + + + + + | Performing | Address | City/State/Zipcode | Phone Number | | Organization | | | | + + + + + | [facility] | [address] | [place] | [phone] | | [facility] | | [address] | | | - LABORATORY | | | | + + + + + Hemoglobin A1C (05/05/2019 4:39 AM PST) + +---------+ + + + | Component | Value | Ref Range | Performed | Pathologist | | | | | At | Signature | + +---------+ + + + | Hemoglobin | 6.6 (H) | 4.3 - 6.0 % | [facility] | | | A1c | | | [facility] | | | | | | MEDICAL | | | | | | CENTER - | | | | | | LABORATORY | | + +---------+ + + + | Estimated | 143 | mg/dL | [facility] | | | Average | | | [facility] | | | Glucose | | | MEDICAL | | | | | | CENTER - | | | | | | LABORATORY | | + +---------+ + + + + + | Specimen | + + | Blood | + + + + + + + | Performing | Address | City/State/Zipcode | Phone Number | | Organization | | | | + + + + + | [facility] | [address] | [place], [place] | [phone] | | [facility] | | [address] | | | - LABORATORY | | | | + + + + + Magnesium (05/05/2019 4:39 AM PST) + +-------+ + + + | Component | Value | Ref Range | Performed | Pathologist | | | | | At | Signature | + +-------+ + + + | Magnesium | 2.1 | 1.6 - 2.6 mg/dL | [facility] | | | | | [...] [address] | [place] | [phone] | | [facility] | | [address] | | | - LABORATORY | | | | + + + + + Basic Metabolic Panel (05/05/2019 4:39 AM PST) + + + + + + | Component | Value | Ref Range | Performed | Pathologist | | | | | At | Signature | + + + + + + | Na | 135 (L) | 136 - 145 | [facility] | | | | | mmol/L | [facility] | | | | | | MEDICAL | | | | | | CENTER - | | | | | | LABORATORY | | + + + + + + | K | 4.2 | 3.4 - 5.1 | [facility] | | | | | mmol/L | [facility] | | | | | | MEDICAL | | | | | | CENTER - | | | | | | LABORATORY | | + + + + + + | Cl | 106 | 98 - 107 mmol/L | [facility] | | | | | | [facility] | | | | | | MEDICAL | | | | | | CENTER - | | | | | | LABORATORY | | + + + + + + | CO2 | 25 | 20 - 31 mmol/L | [facility] | | | | | | [facility] | | | | | | MEDICAL | | | | | | CENTER - | | | | | | LABORATORY | | + + + + + + | Anion Gap | 4 | 3 - 16 mmol/L | [facility] | | | | | | [facility] | | | | | | MEDICAL | | | | | | CENTER - | | | | | | LABORATORY | | + + + + + + | Glucose | 119 (H) | 60 - 106 mg/dL | [facility] | | | | | | [facility] | | | | | | MEDICAL | | | | | | CENTER - | | | | | | LABORATORY | | + + + + + + | BUN | 8 (L) | 9 - 23 mg/dL | [facility] | | | | | | [facility] | | | | | | MEDICAL | | | | | | CENTER - | | | | | | LABORATORY | | + + + + + + | Creatinine | 0.75 | 0.70 - 1.30 | [facility] | | | | | mg/dL | [facility] | | | | | | MEDICAL | | | | | | CENTER - | | | | | | LABORATORY | | + + + + + + | eGFR if not | >60Comment: GLOMERULAR | >=60 | [facility] | | | | FILTRATION | mL/min/1.73m2 | [facility] | | | [place] | RATE,ESTIMATED | | MEDICAL | | | | mL/min/1.75i6Njqw than | | CENTER - | | [...] + + + + | Calcium | 8.2 (L) | 8.7 - 10.4 | [facility] | | | | | mg/dL | [facility] | | | | | | MEDICAL | | | | | | CENTER - | | | | | | LABORATORY | | + + + + + + | BUN/Creatin | 10.7 | | [facility] | | | ine Ratio | | | [facility] | | | | | | MEDICAL [...] + | [facility] | [address] | [place] | [phone] | | [facility] | | [address] | | | - LABORATORY | | | | + + + + + CBC with Differential (05/05/2019 4:39 AM PST) + + + + + + | Component | Value | Ref Range | Performed | Pathologist | | | | | At | Signature | + + + + + + | WBC | 7.4 | 4.0 - 11.0 K/uL | [facility] | | | | | | [facility] | | | | | | MEDICAL | | | | | | CENTER - | | | | | | LABORATORY | | + + + + + + | RBC | 4.41 | 4.30 - 5.70 | [facility] | [...] + + + + | Hematocrit | 41.1 | 40.0 - 51.0 % | [facility] | | | | | | [facility] | | | | | | MEDICAL | | | | | | CENTER - | | | | | | LABORATORY | | + + + + + + | MCV | 93.2 | 83.0 - 101.0 fL | [facility] | | | | | | [facility] | | | | | | MEDICAL | | | | | | CENTER - | | | | | | LABORATORY | | + + + + + + | MCH | 31.5 | 28.0 - 35.0 pg | [facility] | | | | | | [facility] | | | | | | MEDICAL | | | | | | CENTER - | | | | | | LABORATORY | | + + + + + + | MCHC | 33.8 | 32.0 - 36.0 | [facility] | | | | | g/dL | [facility] | | | | | | MEDICAL | | | | | | CENTER - | | | | | | LABORATORY | | + + + + + + | RDW-CV | 13.3 | <15.0 % | [facility] | | | | | | [facility] | | | | | | MEDICAL | | | | | | CENTER - | | | | | | LABORATORY | | + + + + + + | RDW-SD | 45.6 | 35.1 - 46.3 fL | [facility] | | | | | | [facility] | | | | | | MEDICAL | | | | | | CENTER - | | | | | | LABORATORY | | + + + + + + | Platelet | 293 | 140 - 440 K/uL | [facility] | | | Count | | | [facility] | | | | | | MEDICAL | | | | | | CENTER - | | | | | | LABORATORY | | + + + + + + | MPV | 11.9 | 6.5 - 12.4 fL | [facility] | | | | | | [facility] | | | | | | MEDICAL | | | | | | CENTER - | | | | | | LABORATORY | | + + + + + + | % | 67.7 | 45.0 - 82.0 % | [facility] | | | Neutrophils | | | [facility] | | | | | | MEDICAL | | | | | | CENTER - | | | | | | LABORATORY | | + + + + + + | % | 24.4 | 20.0 - 45.0 % | [facility] | | | Lymphocytes | | | [facility] | | | | | | MEDICAL | | | | | | CENTER - | | | | | | LABORATORY | | + + + + + + | % Monocytes | 6.2 | 4.0 - 12.0 % | [facility] | | | | | | [facility] | | | | | | MEDICAL | | | | | | CENTER - | | | | | | LABORATORY | | + + + + + + | % | 0.5 | 0.0 - 5.0 % | [facility] | | | Eosinophils | | | [facility] | | | | | | MEDICAL | | | | | | CENTER - | | | | | | LABORATORY | | + + + + + + | % Basophils | 0.7 | 0.0 - 1.0 % | [facility] | | | | | | [facility] | | | | | | MEDICAL | | | | | | CENTER - | | | | | | LABORATORY | | + + + + + + | % Immature | 0.5 (H)Comment: | 0.0 - 0.4 % | [facility] | | | Granulocyte | Preliminary studies have | | [facility] | | | s | indicated the IG% | | MEDICAL | | | | and/or IG# show promise | | CENTER - | | | | as an early indicator | | LABORATORY | | | | for infection. | | | | + + + + + + | Absolute | 4.98 | 1.80 - 8.50 | [facility] | | | Neutrophils | | K/uL | [facility] | | | | | | MEDICAL | | | | | | CENTER - | | | | | | LABORATORY | | + + + + + + | Absolute | 1.80 | 0.60 - 3.20 | [facility] | | | Lymphocytes | | K/uL | [facility] | | | | | | MEDICAL | | | | | | CENTER - | | | | | | LABORATORY | | + + + + + + | Absolute | 0.46 | 0.00 - 1.00 | [facility] | | | Monocytes | | K/uL | [facility] | | | | | | MEDICAL | | | | | | CENTER - | | | | | | LABORATORY | | + + + + + + | Absolute | 0.04 | 0.00 - 0.40 | [facility] | | | Eosinophils | | K/uL | [facility] | | | | | | MEDICAL | | | | | | CENTER - | | | | | | LABORATORY | | + + + + + + | Absolute | 0.05 | 0.00 - 0.10 | [facility] | | | Basophils | | K/uL | [facility] | | | | | | MEDICAL | | | | | | CENTER - | | | | | | LABORATORY | | + + + + + + | Absolute | 0.04 (H) | 0.00 - 0.03 | [facility] | | | Immature | | K/uL | [facility] | | | Granulocyte | | | MEDICAL | | | s | | | CENTER - | | | | | | LABORATORY | | + + + + + + | % nRBC | 0 | 0 - 2 per 100 | [facility] | | | | | WBCs | [facility] | | | | | | MEDICAL | | | | | | CENTER - | | | | | | LABORATORY | | + + + + + + | Absolute | 0.00 | 0.00 - 0.01 | [facility] | | | nRBC | | K/uL | [facility] | | | | [...] [address] | [place] | [phone] | | [facility] | | [address] | | | - LABORATORY | | | | + + + + + Extra Lavender Top Tube (05/05/2019 12:02 AM PST) + +-------+ + + + | Component | Value | Ref Range | Performed | Pathologist | | | | | At | Signature | + +-------+ + + + | Extra | Done | | [facility] | | | Lavender | | | [facility] | | | Top Tube | | | MEDICAL | | | [...] [address] | [place] | [phone] | | [facility] | | [address] | | | - LABORATORY | | | | + + + + + Basic Metabolic Panel (05/05/2019 12:02 AM PST) + + + + + + | Component | Value | Ref Range | Performed | Pathologist | | | | | At | Signature | + + + + + + | Na | 134 (L) | 136 - 145 | [facility] | | | | | mmol/L | [facility] | | | | | | MEDICAL | | | | | | CENTER - | | | | | | LABORATORY | | + + + + + + | K | 4.1 | 3.4 - 5.1 | [facility] | | | | | mmol/L | [facility] | | | | | | MEDICAL | | | | | | CENTER - | | | | | | LABORATORY | | + + + + + + | Cl | 103 | 98 - 107 mmol/L | [facility] | | | | | | [facility] | | | | | | MEDICAL | | | | | | CENTER - | | | | | | LABORATORY | | + + + + + + | CO2 | 27 | 20 - 31 mmol/L | [facility] | | | | | | [facility] | | | | | | MEDICAL | | | | | | CENTER - | | | | | | LABORATORY | | + + + + + + | Anion Gap | 4 | 3 - 16 mmol/L | [facility] | | | | | | [facility] | | | | | | MEDICAL | | | | | | CENTER - | | | | | | LABORATORY | | + + + + + + | Glucose | 105 | 60 - 106 mg/dL | [facility] | | | | | | [facility] | | | | | | MEDICAL | | | | | | CENTER - | | | | | | LABORATORY | | + + + + + + | BUN | 9 | 9 - 23 mg/dL | [facility] | | | | | | [facility] | | | | | | MEDICAL | | | | | | CENTER - | | | | | | LABORATORY | | + + + + + + | Creatinine | 0.87 | 0.70 - 1.30 | [facility] | | | | | mg/dL | [facility] | | | | | | MEDICAL | | | | | | CENTER - | | | | | | LABORATORY | | + + + + + + | eGFR if not | >60Comment: GLOMERULAR | >=60 | [facility] | | | | FILTRATION | mL/min/1.73m2 | [facility] | | | [place] | RATE,ESTIMATED | | MEDICAL | | | | mL/min/1.36c6Kkrf than | | CENTER - | | [...] + + + + | Calcium | 8.3 (L) | 8.7 - 10.4 | [facility] | | | | | mg/dL | [facility] | | | | | | MEDICAL | | | | | | CENTER - | | | | | | LABORATORY | | + + + + + + | BUN/Creatin | 10.3 | | [facility] | | | ine Ratio | | | [facility] | | | | | | MEDICAL [...] + | [facility] | [address] | [place] | [phone] | | [facility] | | [address] | | | - LABORATORY | | | | + + + + + XR Foot Left 2 Vw (05/04/2019 11:10 PM PST) + + | Specimen | + + | | + + + + + | Impressions | Performed At | + + + | Amputation changes. Dictated and Signed by: Shemar Mccoy MD | [facility] | | Electronically signed: 05/05/2019 8:29 AM | | + + + + + + | Narrative | Performed At | + + + | CLINICAL INFORMATION: surgery. COMPARISON: 05/04/2019 | [facility] | | FINDINGS: 2 views of the left foot. 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 Chronic 1st mid | | | metatarsal dictation changes. Peripheral vascular calcifications. | | | | | + + + + + | Procedure Note | + + | Raymundo Kaminski Results In - 05/05/2019 8:32 AM PST CLINICAL INFORMATION: surgery. | | | | COMPARISON: 05/04/2019 | | | | FINDINGS: | | 2 views of the left foot. 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 | | Chronic 1st mid metatarsal dictation changes. | | | | Peripheral vascular calcifications. | | | | IMPRESSION: | | Amputation changes. | | | | Dictated and Signed by: Shemar Mccoy MD | | Electronically signed: 05/05/2019 8:29 AM | + + + +---------+ + + | Performing | Address | City/State/Zipcode | Phone Number | | Organization | | | | + +---------+ + + | [facility] | | | | + +---------+ + + POC Glucose (05/04/2019 10:48 PM PST) + +---------+ + + + | Component | Value | Ref Range | Performed | Pathologist | | | | | At | Signature | + +---------+ + + + | Glucose, | 121 (H) | 70 - 109 mg/dL | [facility] | | | POC | | | [facility] | | | | | | MEDICAL | | | | | | CENTER - | | | | | | LABORATORY | | + +---------+ + + + + + | Specimen | + + | Blood | + + + + + + + | Performing | Address | City/State/Zipcode | Phone Number | | Organization | | | | + + + + + | [facility] | [address] | [place] | [phone] | | [facility] | | [address] | | | - LABORATORY | | | | + + + + + Culture, Anaerobic (05/04/2019 10:09 PM PST) + + + + + + | Component | Value | Ref Range | Performed | Pathologist | | | | | At | Signature | + + + + + + | Culture | 1+ Finegoldia | | [facility] | | | | magnaComment: Drug of | | [facility] | | | | choice for anaerobic | | MEDICAL | | | | Streptococcus is | | CENTER - | | | | Penicillin G. Alternate | | LABORATORY | | | | drugs are clindamycin | | | | | | or a cephalosporin. | | | | + + + + + + | Culture | 1+ Lactobacillus | | [facility] | | | | plantarumComment: | | [facility] | | | | Beta-lactamase negative | | MEDICAL | | | | | | CENTER - | | | | | | LABORATORY | | + + + + + + + + | Specimen | + + | Tissue - Extensor | | digitorum tendon of | | third toe (body | | structure) | + + + + + + + | Performing | Address | City/State/Zipcode | Phone Number | | Organization | | | | + + + + + | [facility] | [address] | [place] | [phone] | | [facility] | | [address] | | | - LABORATORY | | | | + + + + + Culture, Wound, Smear (05/04/2019 10:09 PM PST) + + + + + + | Component | Value | Ref Range | Performed | Pathologist | | | | | At | Signature | + + + + + + | Culture | 2+ Enterobacter cloacae | | [facility] | | | | ssp cloacaeComment: This | | [facility] | | | | organism is known to | | MEDICAL | | | | possess inducible | | CENTER - | | | | beta-lactamases. | | LABORATORY | | | | Isolates may become | | | | | | resistant to all | | | | | | cephalosporins after | | | | | | initiation of therapy. | | | | | | Avoid | | | | | | beta-lactam/beta-lactama | | | | | | se inhibitory | | | | | | combinations. | | | | + + + + + + | Gram Stain | 1+ White Blood Cells | | [facility] | | | Result | | | [facility] | | | | | | MEDICAL | | | | | | CENTER - | | | | | | LABORATORY | | + + + + + + | Gram Stain | 2+ Epithelial cells | | [facility] | | | Result | | | [facility] | | | | | | MEDICAL | | | | | | CENTER - | | | | | | LABORATORY | | + + + + + + | Gram Stain | 1+ Gram negative rods | | [facility] | | | Result | | | [facility] | | | | | | MEDICAL | | | | | | CENTER - | | | | | | LABORATORY | | + + + + + + + + | Specimen | + + | Tissue - Extensor | | digitorum tendon of | | third toe (body | | structure) | + + + + +--------+ + | Organism | Antibiotic | Method | Susceptibility | + + +--------+ + | Enterobacter cloacae | Cefazolin | | >=64 ug/mL: | | ssp cloacae | | | Resistant | + + +--------+ + | Enterobacter cloacae | Cefoxitin | | >=64 ug/mL: | | ssp cloacae | | | Resistant | + + +--------+ + | Enterobacter cloacae | Ceftazidime | | <=1 ug/mL: | | ssp cloacae | | | Sensitive | + + +--------+ + | Enterobacter cloacae | Ceftriaxone | | <=1 ug/mL: | | ssp cloacae | | | Sensitive | + + +--------+ + | Enterobacter cloacae | Ciprofloxacin | | <=0.25 ug/mL: | | ssp cloacae | | | Sensitive | + + +--------+ + | Enterobacter cloacae | Ertapenem | | <=0.5 ug/mL: | | ssp cloacae | | | Sensitive | + + +--------+ + | Enterobacter cloacae | Gentamicin | | <=1 ug/mL: | | ssp cloacae | | | Sensitive | + + +--------+ + | Enterobacter cloacae | Meropenem | | <=0.25 ug/mL: | | ssp cloacae | | | Sensitive | + + +--------+ + | Enterobacter cloacae | Piperacillin + | | <=4 ug/mL: | | ssp cloacae | Tazobactam | | Sensitive | + + +--------+ + | Enterobacter cloacae | Tobramycin | | <=1 ug/mL: | | ssp cloacae | | | Sensitive | + + +--------+ + | Enterobacter cloacae | Trimethoprim + | | <=20 ug/mL: | | ssp cloacae | Sulfamethoxazole | | Sensitive | + + +--------+ + + + + + + | Performing | Address | City/State/Zipcode | Phone Number | | Organization | | | | + + + + + | [facility] | [address] | [place] | [phone] | | [facility] | | [address] | | | - LABORATORY | | | | + + + + + POC Glucose (05/04/2019 8:40 PM PST) + +-------+ + + + | Component | Value | Ref Range | Performed | Pathologist | | | | | At | Signature | + +-------+ + + + | Glucose, | 106 | 70 - 109 mg/dL | [facility] | | | POC | | | [facility] | | | | | | [facility] [...] | + + + + + | [facility] | [address] | [place] | [phone] | | [facility] | | [address] | | | - LABORATORY | | | | + + + + + Culture, Blood (05/04/2019 4:31 PM PST) + + + + + + | Component | Value | Ref Range | Performed | Pathologist | | | | | At | Signature | + + + + + + | Culture | No growth after 5 days | | [facility] | | | | incubation. | | [facility] | | | | | | [facility] | | | | | | [facility] - | | | | | | LABORATORY | | + + + + + + + + | Specimen | + + | Blood - Swab of line | | insertion site | | (specimen) | + + + + + + + | Performing | Address | City/State/Zipcode | Phone Number | | Organization | | | | + + + + + | [facility] | [address] | [place] | [phone] | | [facility] | | [address] | | | - LABORATORY | | | | + + + + + XR Foot Left 3 + Vw (05/04/2019 4:21 PM PST) + + | Specimen | + + | | + + + + + | Impressions | Performed At | + + + | Subcutaneous emphysema and diffuse soft tissue swelling is seen | [facility] | | along the base of the third proximal phalanx. No convincing | | | evidence for acute osteomyelitis at this time. -Plain film | | | radiography isn't sensitive for early osteomyelitis. Recommend | | | contrast-enhanced MRI if there is further concern. Dictated and | | | Signed by: Jaxson Nettles MD Electronically signed: 05/04/2019 | | | 8:22 PM | | + + + + + + | Narrative | Performed At | + + + | XR FOOT LEFT 3 + VW 05/04/2019 4:21 PM HISTORY: TOE SWELLING | [facility] | | TOE REDNESS. COMPARISON: 02/16/2019. FINDINGS: Evidence of | | | prior amputation at the level of the base of the first metatarsal. No | | | acute osseous abnormality identified. Subcutaneous emphysema and | | | diffuse soft tissue swelling is seen along the base of the third | | | proximal phalanx. | | + + + + + | Procedure Note | + + | Gordy, Raymundo Results In - 05/04/2019 8:25 PM PST XR FOOT LEFT 3 + VW 05/04/2019 4:21 PM | | | | HISTORY: TOE SWELLING | | TOE REDNESS. | | | | COMPARISON: 02/16/2019. | | | | FINDINGS: | | Evidence of prior amputation at the level of the base of the first metatarsal. | | No acute osseous abnormality identified. Subcutaneous emphysema and diffuse soft | | tissue swelling is seen along the base of the third proximal phalanx. | | | | IMPRESSION: | | Subcutaneous emphysema and diffuse soft tissue swelling is seen along the base | | of the third proximal phalanx. | | | | No convincing evidence for acute osteomyelitis at this time. | | -Plain film radiography isn't sensitive for early osteomyelitis. Recommend | | contrast-enhanced MRI if there is further concern. | | | | Dictated and Signed by: Jaxson Nettles MD | | Electronically signed: 05/04/2019 8:22 PM | + + + +---------+ + + | Performing | Address | City/State/Zipcode | Phone Number | | Organization | | | | + +---------+ + + | [facility] | | | | + +---------+ + + Blood Culture GP Pathogen Panel, PCR (05/04/2019 4:18 PM PST) + + + + + + | Component | Value | Ref Range | Performed | Pathologist | | | | | At | Signature | + + + + + + | Staphylococ | Detected (AA)Comment: | Not Detected | [facility] | | | cus | Critical Result called | | [facility] | | | species, | to and read back by | | MEDICAL | | | DNA | Soraya Loredo PharmD | | CENTER - | | | | on 05/06/2019 at 7:45 | | LABORATORY | | | | AM by Iván Mary. | | | | + + + + + + | Staphylococ | Not Detected | Not Detected | [facility] | | | cus aureus, | | | [facility] | | | DNA | | | MEDICAL | | | | | | CENTER - | | | | | | LABORATORY | | + + + + + + | mecA | N/A | Not Detected, | [facility] | | | (methicilli | | N/A | [facility] | | | n-resistanc | | | MEDICAL | | | e gene), | | | CENTER - | | | DNA | | | LABORATORY | | + + + + + + | Staphylococ | Not Detected | Not Detected | [facility] | | | cus | | | [facility] | | | epidermidis | | | MEDICAL | | | , DNA | | | CENTER - | | | | | | LABORATORY | | + + + + + + | Staphylococ | Not Detected | Not Detected | [facility] | | | cus | | | [facility] | | | lugdunensis | | | MEDICAL | | | , DNA | | | CENTER - | | | | | | LABORATORY | | + + + + + + | Enterococcu | Not Detected | Not Detected | [facility] | | | s faecalis, | | | [facility] | | | DNA | | | MEDICAL | | | | | | CENTER - | | | | | | LABORATORY | | + + + + + + | Enterococcu | Not Detected | Not Detected | [facility] | | | s faecium, | | | [facility] | | | DNA | | | MEDICAL | | | | | | CENTER - | | | | | | LABORATORY | | + + + + + + | Moustapha | N/A | Not Detected, | [facility] | | | (vancomycin | | N/A | [facility] | | | -resistance | | | MEDICAL | | | gene), DNA | | | CENTER - | | | | | | LABORATORY | | + + + + + + | Streptococc | Not Detected | Not Detected | [facility] | | | us species, | | | [facility] | | | DNA | | | MEDICAL | | | | | | CENTER - | | | | | | LABORATORY | | + + + + + + | Streptococc | Not Detected | Not Detected | [facility] | | | us | | | [facility] | | | agalactiae | | | MEDICAL | | | (Group B), | | | CENTER - | | | DNA | | | LABORATORY | | + + + + + + | Streptococc | Not Detected | Not Detected | [facility] | | | us | | | [facility] | | | anginosus, | | | MEDICAL | | | DNA | | | CENTER - | | | | | | LABORATORY | | + + + + + + | Streptococc | Not Detected | Not Detected | [facility] | | | us | | | [facility] | | | pneumonia/m | | | MEDICAL | | | itis, DNA | | | CENTER - | | | | | | LABORATORY | | + + + + + + | Streptococc | Not Detected | Not Detected | [facility] | | | us pyogenes | | | [facility] | | | (Group A), | | | MEDICAL | | | DNA | | | CENTER - | | | | | | LABORATORY | | + + + + + + | Listeria | Not Detected | Not Detected | [facility] | | | species, | | | [facility] | | | DNA | | | MEDICAL | | | | | | CENTER - | | | | | | LABORATORY | | + + + + + + | vanB | N/A | Not Detected, | [facility] | | | (vancomycin | | N/A | [facility] | | | -resistance | | | MEDICAL | | | gene), DNA | | | CENTER - | | | | | | LABORATORY | | + + + + + + + + | Specimen | + + | Blood - Peripheral | | blood specimen | | (specimen) | + + + + + + + | Performing | Address | City/State/Zipcode | Phone Number | | Organization | | | | + + + + + | [facility] | [address] | [place] | [phone] | | [facility] | | [address] | | | - LABORATORY | | | | + + + + + Lactic Acid (05/04/2019 4:18 PM PST) + +-------+ + + + | Component | Value | Ref Range | Performed | Pathologist | | | | | At | Signature | + +-------+ + + + | Lactate | 2.1 | 0.5 - 2.2 | [facility] | | | | | [...] [address] | [place] | [phone] | | [facility] | | [address] | | | - LABORATORY | | | | + + + + + Culture, Blood (05/04/2019 4:18 PM PST) + + + + + + | Component | Value | Ref Range | Performed | Pathologist | | | | | At | Signature | + + + + + + | Culture | Positive Blood Culture | | [facility] | | | | (AA) | | [facility] | | | | | | MEDICAL | | | | | | CENTER - | | | | | | LABORATORY | | + + + + + + | Culture | Staphylococcus | | [facility] | | | | capitisComment: Probable | | [facility] | | | | contaminant | | MEDICAL | | | | | | CENTER - | | | | | | LABORATORY | | + + + + + + | Gram Stain | Gram positive cocci in | | [facility] | | | Result | clustersComment: 1 of 4 | | [facility] | | | | bottles positive. | | MEDICAL | | | | Critical Result called | | CENTER - | | | | to and read back by | | LABORATORY | | | | Connie Alonzo on | | | | | | 05/06/2019 at 5:05 AM by | | | | | | Juan Becerra. | | | | + + + + + + + + | Specimen | + + | Blood - Peripheral | | blood specimen | | (specimen) | + + + + + + + | Performing | Address | City/State/Zipcode | Phone Number | | Organization | | | | + + + + + | [facility] | [address] | [place] | [phone] | | [facility] | | [address] | | | - LABORATORY | | | | + + + + + Protime INR (05/04/2019 4:18 PM PST) + + + + + + | Component | Value | Ref Range | Performed | Pathologist | | | | | At | Signature | + + + + + + | Prothrombin | 13.2 | 11.3 - 13.9 | [facility] | | | Time | | seconds | [facility] | | | | | | MEDICAL | | | | | | CENTER - | | | | | | LABORATORY | | + + + + + + | INR | 1.0Comment: Usual Oral | 0.9 - 1.1 | [facility] | | | | Anticoagulation Range: | | [facility] | | | | 2.0 - 3.0High | | MEDICAL | | | | Level Oral | | CENTER - | | | | Anticoagulation Range: | | LABORATORY | | | | 2.5 - 3.5 | | | | + + + + + + + + | Specimen | + + | Blood | + + + + + + + | Performing | Address | City/State/Zipcode | Phone Number | | Organization | | | | + + + + + | [facility] | [address] | [place] | [phone] | | [facility] | | [address] | | | - LABORATORY | | | | + + + + + Lipase (05/04/2019 4:18 PM PST) + + + + + + | Component | Value | Ref Range | Performed | Pathologist | | | | | At | Signature | + + + + + + | Lipase | 51Comment: New method in | 12 - 53 U/L | [place] | | | | use as of July 20 | | [facility] | | | | 2018. Check reference | | MEDICAL | | | | range for changes.Some | | CENTER - | | | | analytes show | | LABORATORY | | | | significant variation | | | | | | from the previous | | | | | | method.It may be | | | | | | necessary to set a new | | | | | | baseline for this | | | | | | analyte. | | | | + + + + + + + + | Specimen | + + | Blood | + + + + + + + | Performing | Address | City/State/Zipcode | Phone Number | | Organization | | | | + + + + + | [facility] | [address] | [place] | [phone] | | [facility] | | [address] | | | - LABORATORY | | | | + + + + + Comprehensive Metabolic Panel (05/04/2019 4:18 PM PST) + +---------+ + + + | Component | Value | Ref Range | Performed | Pathologist | | | | | At | Signature | + +---------+ + + + | Na | 129 (L) | 136 - 145 | [facility] | | | | | mmol/L | [facility] | | | | | | MEDICAL | | | | | | CENTER - | | | | | | LABORATORY | | + +---------+ + + + | K | 4.7 | 3.4 - 5.1 | [facility] | | | | | mmol/L | [facility] | | | | | | MEDICAL | | | | | | CENTER - | | | | | | LABORATORY | | + +---------+ + + + | Cl | 101 | 98 - 107 mmol/L | [facility] | | | | | | [facility] | | | | | | MEDICAL | | | | | | CENTER - | | | | | | LABORATORY | | + +---------+ + + + | CO2 | 23 | 20 - 31 mmol/L | [facility] | | | | | | [facility] | | | | | | MEDICAL | | | | | | CENTER - | | | | | | LABORATORY | | + +---------+ + + + | Anion Gap | 5 | 3 - 16 mmol/L | [facility] | | | | | | [facility] | | | | | | MEDICAL | | | | | | CENTER - | | | | | | LABORATORY | | + +---------+ + + + | Glucose | 174 (H) | 60 - 106 mg/dL | [facility] | | | | | | [facility] | | | | | | MEDICAL | | | | | | CENTER - | | | | | | LABORATORY | | + +---------+ + + + | BUN | 11 | 9 - 23 mg/dL | [facility] | | | | | | [facility] | | | | | | MEDICAL | | | | | | CENTER - | | | | | | LABORATORY | | + +---------+ + + + | Creatinine | 0.93 | 0.70 - 1.30 | [facility] | | | | | mg/dL | [facility] | | | | | | MEDICAL | | | | | | CENTER - | | | | | | LABORATORY | | + +---------+ + + + | eGFR if not | >60 | >=60 | [facility] | | | | | mL/min/1.73m2 | [facility] | | | [facility] | | | MEDICAL | | | | | | CENTER - | | | | | | LABORATORY | | + +---------+ + + + | Calcium | 8.2 (L) | 8.7 - 10.4 | [facility] | | | | | mg/dL | [facility] | | | | | | MEDICAL | | | | | | CENTER - | | | | | | LABORATORY | | + +---------+ + + + | Albumin | 3.4 | 3.2 - 4.8 g/dL | [facility] | | | | | | [facility] | | | | | | MEDICAL | | | | | | CENTER - | | | | | | LABORATORY | | + +---------+ + + + | Bilirubin | 0.2 (L) | 0.3 - 1.2 mg/dL | [facility] | | | Total | | | [facility] | | | | | | MEDICAL | | | | | | CENTER - | | | | | | LABORATORY | | + +---------+ + + + | Total | 6.5 | 5.7 - 8.2 g/dL | [facility] | | | Protein | | | [facility] | | | | | | MEDICAL | | | | | | CENTER - | | | | | | LABORATORY | | + +---------+ + + + | AST | 18 | 0 - 34 U/L | [facility] | | | | | | [facility] | | | | | | MEDICAL | | | | | | CENTER - | | | | | | LABORATORY | | + +---------+ + + + | ALT | 12 | 10 - 49 U/L | [facility] | | | | | | [facility] | | | | | | MEDICAL | | | | | | CENTER - | | | | | | LABORATORY | | + +---------+ + + + | Alkaline | 141 (H) | 46 - 116 U/L | [facility] | | | Phosphatase | | | [facility] | | | | | | MEDICAL | | | | | | CENTER - | | | | | | LABORATORY | | + +---------+ + + + | Globulin | 3.1 | 2.1 - 3.8 g/dL | [facility] | | | | | | [facility] | | | | | | MEDICAL | | | | | | CENTER - | | | | | | LABORATORY | | + +---------+ + + + | Albumin/Ivon | 1.1 | 0.8 - 1.9 | [facility] | | | bulin Ratio | | | [facility] | | | | | | MEDICAL | | | | | | CENTER - | | | | | | LABORATORY | | + +---------+ + + + | BUN/Creatin | 11.8 | | [facility] | | | ine Ratio | | | [facility] | | | | | | MEDICAL | | | | | | CENTER - | | | | | | LABORATORY | | + +---------+ + + + + + | Specimen | + + | Blood | + + + + + + + | Performing | Address | City/State/Zipcode | Phone Number | | Organization | | | | + + + + + | [facility] | [address] | [place] | [phone] | | [facility] | | [address] | | | - LABORATORY | | | | + + + + + CBC with Differential (05/04/2019 4:18 PM PST) + +-------+ + + + | Component | Value | Ref Range | Performed | Pathologist | | | | | At | Signature | + +-------+ + + + | WBC | 9.1 | 4.0 - 11.0 K/uL | [facility] | | | | | | [facility] | | | | | | MEDICAL | | | | | | CENTER - | | | | | | LABORATORY | | + +-------+ + + + | RBC | 4.72 | 4.30 - 5.70 | [facility] | | | | | M/uL | [facility] | | | | | | [facility] | | | | | | CENTER - | | | | | | LABORATORY | | + +-------+ + + + | Hemoglobin | 14.7 | 13.5 - 18.0 | [facility] | | | | | g/dL | [facility] | | | | | | MEDICAL | | | | | | CENTER - | | | | | | LABORATORY | | + +-------+ + + + | Hematocrit | 43.2 | 40.0 - 51.0 % | [facility] | | | | | | [facility] | | | | | | MEDICAL | | | | | | CENTER - | | | | | | LABORATORY | | + +-------+ + + + | MCV | 91.5 | 83.0 - 101.0 fL | [facility] | | | | | | [facility] | | | | | | MEDICAL | | | | | | CENTER - | | | | | | LABORATORY | | + +-------+ + + + | MCH | 31.1 | 28.0 - 35.0 pg | [facility] | | | | | | [facility] | | | | | | MEDICAL | | | | | | CENTER - | | | | | | LABORATORY | | + +-------+ + + + | MCHC | 34.0 | 32.0 - 36.0 | [facility] | | | | | g/dL | [facility] | | | | | | MEDICAL | | | | | | CENTER - | | | | | | LABORATORY | | + +-------+ + + + | RDW-CV | 13.2 | <15.0 % | [facility] | | | | | | [facility] | | | | | | MEDICAL | | | | | | CENTER - | | | | | | LABORATORY | | + +-------+ + + + | RDW-SD | 44.8 | 35.1 - 46.3 fL | [facility] | | | | | | [facility] | | | | | | MEDICAL | | | | | | CENTER - | | | | | | LABORATORY | | + +-------+ + + + | Platelet | 341 | 140 - 440 K/uL | [facility] | | | Count | | | [facility] | | | | | | MEDICAL | | | | | | CENTER - | | | | | | LABORATORY | | + +-------+ + + + | MPV | 11.8 | 6.5 - 12.4 fL | [facility] | | | | | | [facility] | | | | | | MEDICAL | | | | | | CENTER - | | | | | | LABORATORY | | + +-------+ + + + | % | 72.2 | 45.0 - 82.0 % | [facility] | | | Neutrophils | | | [facility] | | | | | | MEDICAL | | | | | | CENTER - | | | | | | LABORATORY | | + +-------+ + + + | % | 21.6 | 20.0 - 45.0 % | [facility] | | | Lymphocytes | | | [facility] | | | | | | MEDICAL | | | | | | CENTER - | | | | | | LABORATORY | | + +-------+ + + + | % Monocytes | 5.3 | 4.0 - 12.0 % | [facility] | | | | | | [facility] | | | | | | MEDICAL | | | | | | CENTER - | | | | | | LABORATORY | | + +-------+ + + + | % | 0.1 | 0.0 - 5.0 % | [facility] | | | Eosinophils | | | [facility] | | | | | | MEDICAL | | | | | | CENTER - | | | | | | LABORATORY | | + +-------+ + + + | % Basophils | 0.5 | 0.0 - 1.0 % | [facility] | | | | | | [facility] | | | | | | MEDICAL | | | | | | CENTER - | | | | | | LABORATORY | | + +-------+ + + + | % Immature | 0.3 | 0.0 - 0.4 % | [facility] | | | Granulocyte | | | [facility] | | | s | | | MEDICAL | | | | | | CENTER - | | | | | | LABORATORY | | + +-------+ + + + | Absolute | 6.57 | 1.80 - 8.50 | [facility] | | | Neutrophils | | K/uL | [facility] | | | | | | MEDICAL | | | | | | CENTER - | | | | | | LABORATORY | | + +-------+ + + + | Absolute | 1.97 | 0.60 - 3.20 | [facility] | | | Lymphocytes | | K/uL | [facility] | | | | | | MEDICAL | | | | | | CENTER - | | | | | | LABORATORY | | + +-------+ + + + | Absolute | 0.48 | 0.00 - 1.00 | [facility] | | | Monocytes | | K/uL | [facility] | | | | | | MEDICAL | | | | | | CENTER - | | | | | | LABORATORY | | + +-------+ + + + | Absolute | 0.01 | 0.00 - 0.40 | [facility] | | | Eosinophils | | K/uL | [facility] | | | | | | MEDICAL | | | | | | CENTER - | | | | | | LABORATORY | | + +-------+ + + + | Absolute | 0.05 | 0.00 - 0.10 | [facility] | | | Basophils | | K/uL | [facility] | | | | | | MEDICAL | | | | | | CENTER - | | | | | | LABORATORY | | + +-------+ + + + | Absolute | 0.03 | 0.00 - 0.03 | [facility] | | | Immature | | K/uL | [facility] | | | Granulocyte | | | MEDICAL | | | s | | | CENTER - | | | | | | LABORATORY | | + +-------+ + + + | % nRBC | 0 | 0 - 2 per 100 | [facility] | | | | | WBCs | [facility] | | | | | | MEDICAL | | | | | | CENTER - | | | | | | LABORATORY | | + +-------+ + + + | Absolute | 0.00 | 0.00 - 0.01 | [facility] | | | nRBC | | K/uL | [facility] | | | | | | MEDICAL [...] + + + + + | [facility] | [address] | [place] | [phone] | | [facility] | | [address] | | | - LABORATORY | | | | + + + + + documented in this encounter Visit Diagnoses + + | Diagnosis | + + | Gangrene of toe of left foot (HCC) - Primary | + + | Cellulitis of foot Cellulitis and abscess of foot, except toes | + + | Toe necrosis (HCC) Other specified disorder of skin | + + | Cellulitis of third toe, left Cellulitis and abscess of toe, unspecified | + + | Osteomyelitis of third toe of left foot (HCC) | + + | Cellulitis of fourth toe of left foot Cellulitis and abscess of toe, unspecified | + + | PAD (peripheral artery disease) (HCC) Unspecified disorders of arteries and | | arterioles | + + | Essential hypertension Unspecified essential hypertension | + + | 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) Type II or unspecified type | | diabetes mellitus without mention of complication, not stated as uncontrolled | + + | Hyperlipidemia, unspecified hyperlipidemia type | + + | Smoker - Daily Tobacco use disorder | + + | Peripheral vascular disease (HCC) Peripheral vascular disease, unspecified | + + | Hypertension Unspecified essential hypertension | + + | GERD (gastroesophageal reflux disease) Esophageal reflux | + + | Diabetes mellitus type II, ORAL Control Type II or unspecified type diabetes mellitus | | without mention of complication, not stated as uncontrolled | + + | Hyponatremia Hyposmolality and/or hyponatremia | + + | Alcohol use, Habitual Alcohol abuse, unspecified | + + documented in this encounter Administered Medications + +--------+ +-------+------+------+ | Medication Order | MAR | Action | Dose | Rate | Site | | | Action | Date | | | | + +--------+ +-------+------+------+ | aspirin chewable tablet 81 mg | Given | 05/08/20 | 81 mg | | | | 81 mg, Oral, DAILY, First dose on | | 19 9:02 | | | | | 05/05/19 at 0900 | | AM PST | | | | + +--------+ +-------+------+------+ +-------+ +-------+---+---+ | Given | 05/07/20 | 81 mg | | | | | 19 9:12 | | | | | | AM PST | | | | +-------+ +-------+---+---+ | Given | 05/06/20 | 81 mg | | | | | 19 9:51 | | | | | | AM PST | | | | +-------+ +-------+---+---+ +---+---+ | | | +---+---+ + +-------+ +-------+---+---+ | atorvaSTATin (LIPITOR) tablet | Given | 05/07/20 | 10 mg | | | | 10 mg 10 mg, Oral, NIGHTLY, | | 19 8:43 | | | | | First dose on Wed05/05/19 at | | PM PST | | | | | 2100 | | | | | | + +-------+ +-------+---+---+ +-------+ +-------+---+---+ | Given | 05/06/20 | 10 mg | | | | | 19 8:53 | | | | | | PM PST | | | | +-------+ +-------+---+---+ | Given | 05/05/20 | 10 mg | | | | | 19 8:10 | | | | | | PM PST | | | | +-------+ +-------+---+---+ +---+---+ | | | +---+---+ + +-------+ + +---+---+ | calcium carbonate (TUMS) | Given | 05/06/20 | 1,000 mg | | | | chewable tablet 1,000 mg 1,000 | | 19 6:15 | | | | | mg, Oral, EVERY 4 HOURS PRN, | | PM PST | | | | | Indigestion, Starting Nelida | | | | | | | 05/04/19 at 2338 | | | | | | + +-------+ + +---+---+ +---+---+ | | | +---+---+ + +---------+ +-----+-------+---+ | cefTRIAXone (ROCEPHIN) 2 g in | New Bag | 05/08/20 | 2 g | 100 | | | sodium chloride 0.9% 50 mL IVPB | | 19 3:22 | | mL/hr | | | 2 g, Intravenous, Administer over | | PM PST | | | | | 30 Minutes, EVERY 24 HOURS | | | | | | | (Daily), First dose on Mon | | | | | | | 05/08/19 at 1400, Activate system | | | | | | | and mix before use., | | | | | | | Indications: Osteomyelitis | | | | | | + +---------+ +-----+-------+---+ +---+---+ | | | +---+---+ + +-------+ +-------+---+---+ | clopidogrel (PLAVIX) tablet 75 | Given | 05/08/20 | 75 mg | | | | mg 75 mg, Oral, DAILY, First | | 19 9:02 | | | | | dose on Wed05/05/19 at 0900 | | AM PST | | | | + +-------+ +-------+---+---+ +-------+ +-------+---+---+ | Given | 05/07/20 | 75 mg | | | | | 19 9:12 | | | | | | AM PST | | | | +-------+ +-------+---+---+ | Given | 05/06/20 | 75 mg | | | | | 19 9:51 | | | | | | AM PST | | | | +-------+ +-------+---+---+ + +---+ | | | + +---+ | dextrose 10% (D10W) infusion | | | at 50 mL/hr, Intravenous, | | | CONTINUOUS PRN, hypoglycemia, | | | Starting Nelida 05/04/19 at 2338, | | | Start infusion if unable to | | | maintain blood glucose greater | | | than 70 mg/dL after two rounds of | | | hypoglycemia treatment. Recheck | | | blood glucose 30 minutes after | | | starting D10W then at least | | | hourly and PRN until it is | | | discontinued. Call provider to | | | discuss parameters for D10W | | | discontinuation., | | + +---+ | | | + +---+ | dextrose 50% injection 12.5-25 | | | g 12.5-25 g, Intravenous, PRN, | | | Low Blood Sugar, Starting Nelida | | | 05/04/19 at 2338, For blood | | | glucose 50-69 mg/dl - give 12.5 g | | | For blood glucose less than 50 | | | mg/dl - give 25 g, | | + +---+ | | | + +---+ + +-------+ +--------+---+---+ | gabapentin (NEURONTIN) capsule | Given | 05/08/20 | 600 mg | | | | 600 mg 600 mg, Oral, 3 TIMES | | 19 3:19 | | | | | DAILY, First dose on Wed05/05/19 | | PM PST | | | | | at 0900 | | | | | | + +-------+ +--------+---+---+ +-------+ +--------+---+---+ | Given | 05/08/20 | 600 mg | | | | | 19 9:02 | | | | | | AM PST | | | | +-------+ +--------+---+---+ | Given | 05/07/20 | 600 mg | | | | | 19 8:43 | | | | | | PM PST | | | | +-------+ +--------+---+---+ +---+---+ | | | +---+---+ + +-------+ + +---+---+ | HYDROcodone-acetaminophen | Given | 05/08/20 | 1 tablet | | | | (NORCO) 10-325 mg per tablet 1 | | 19 5:22 | | | | | tablet 1 tablet, Oral, EVERY 4 | | PM PST | | | | | HOURS PRN, Pain, Starting Fri | | | | | | | 05/05/19 at 1037 | | | | | | + +-------+ + +---+---+ +-------+ + +---+---+ | Given | 05/08/20 | 1 tablet | | | | | 19 12:35 | | | | | | PM PST | | | | +-------+ + +---+---+ | Given | 05/08/20 | 1 tablet | | | | | 19 6:39 | | | | | | AM PST | | | | +-------+ + +---+---+ +---+---+ | | | +---+---+ + +-------+ + +---+---+ | HYDROcodone-acetaminophen | Given | 05/05/20 | 1 tablet | | | | (NORCO) 7.5-325 mg per tablet 1 | | 19 8:20 | | | | | tablet 1 tablet, Oral, EVERY 6 | | AM PST | | | | | HOURS PRN, Moderate Pain, | | | | | | | Starting [facility] 05/04/19 at 2338 | | | | | | + +-------+ + +---+---+ +-------+ + +---+---+ | Given | 05/05/20 | 1 tablet | | | | | 19 2:19 | | | | | | AM PST | | | | +-------+ + +---+---+ +---+---+ | | | +---+---+ + +-------+ +-------+---+---+ | lisinopril (PRINIVIL, ZESTRIL) | Given | 05/08/20 | 10 mg | | | | tablet 10 mg 10 mg, Oral, DAILY, | | 19 9:02 | | | | | First dose on Wed05/05/19 at | | AM PST | | | | | 0900 | | | | | | + +-------+ +-------+---+---+ +-------+ +-------+---+---+ | Given | 05/07/20 | 10 mg | | | | | 19 9:12 | | | | | | AM PST | | | | +-------+ +-------+---+---+ | Given | 05/06/20 | 10 mg | | | | | 19 9:52 | | | | | | AM PST | | | | +-------+ +-------+---+---+ + +---+ | | | + +---+ | melatonin tablet 3 mg 3 mg, | | | Oral, NIGHTLY PRN, Insomnia, | | | Starting Wed05/05/19 at 0233 | | + +---+ | | | + +---+ + +-------+ +-------+---+---+ | metoprolol succinate | Given | 05/08/20 | 25 mg | | | | (TOPROL-XL) ER tablet 25 mg 25 | | 19 9:02 | | | | | mg, Oral, DAILY, First dose on | | AM PST | | | | | 05/05/19 at 0900, Tablet may | | | | | | | be cut where scored but do not | | | | | | | crush., | | | | | | + +-------+ +-------+---+---+ +-------+ +-------+---+---+ | Given | 05/07/20 | 25 mg | | | | | 19 9:12 | | | | | | AM PST | | | | +-------+ +-------+---+---+ | Given | 05/06/20 | 25 mg | | | | | 19 9:51 | | | | | | AM PST | | | | +-------+ +-------+---+---+ +---+---+ | | | +---+---+ + +-------+ +------+---+---+ | morphine injection 1-4 mg 1-4 | Given | 05/08/20 | 4 mg | | | | mg, Intravenous, EVERY 3 HOURS | | 19 3:11 | | | | | PRN, Pain, Severe Pain, Starting | | PM PST | | | | | [place] 05/04/19 at 2338, Slow IV | | | | | | | push, not faster than 2 | | | | | | | mg/minute. If ineffective or not | | | | | | | tolerated, use hydromorphone IV | | | | | | | if ordered., | | | | | | + +-------+ +------+---+---+ +-------+ +------+---+---+ | Given | 05/08/20 | 4 mg | | | | | 19 9:24 | | | | | | AM PST | | | | +-------+ +------+---+---+ | Given | 05/08/20 | 4 mg | | | | | 19 3:43 | | | | | | AM PST | | | | +-------+ +------+---+---+ +---+---+ | | | +---+---+ + +-------+ +------+---+---+ | morphine injection 4-8 mg 4-8 | Given | 05/04/20 | 8 mg | | | | mg, Intravenous, EVERY 2 HOURS | | 19 7:53 | | | | | PRN, Pain, Starting [facility] 05/04/19 | | PM PST | | | | | at 1719 | | | | | | + +-------+ +------+---+---+ +-------+ +------+---+---+ | Given | 05/04/20 | 4 mg | | | | | 19 6:17 | | | | | | PM PST | | | | +-------+ +------+---+---+ | Given | 05/04/20 | 4 mg | | | | | 19 5:40 | | | | | | PM PST | | | | +-------+ +------+---+---+ +---+---+ | | | +---+---+ + +---------+ +---------+---+ + | nicotine (NICODERM) 21 mg/24 hr | Patch | 05/08/20 | 1 patch | | Deltoid- | | 1 patch 1 patch, Transdermal, | Applied | 19 9:03 | | | Right | | DAILY, First dose on Wed05/05/19 | | AM PST | | | | | at 1145 | | | | | | + +---------+ +---------+---+ + + + +---------+---+ + | Patch Applied | 05/07/20 | 1 patch | | Deltoid- | | | 19 9:13 | | | Left | | | AM PST | | | | + + +---------+---+ + | Patch Applied | 05/06/20 | 1 patch | | Deltoid- | | | 19 9:50 | | | Right | | | AM PST | | | | + + +---------+---+ + +---+---+ | | | +---+---+ + +-------+ +------+---+---+ | nicotine polacrilex (COMMIT) | Given | 05/06/20 | 4 mg | | | | lozenge 2-4 mg 2-4 mg, Oral, | | 19 8:53 | | | | | PRN, Nicotine Craving, Starting | | PM PST | | | | | 05/06/19 at 1047 | | | | | | + +-------+ +------+---+---+ +---+---+ | | | +---+---+ + +-------+ +------+---+---+ | ondansetron (ZOFRAN) injection | Given | 05/06/20 | 4 mg | | | | 4 mg 4 mg, Intravenous, EVERY 6 | | 19 8:18 | | | | | HOURS PRN, Nausea, Vomiting, | | PM PST | | | | | Starting Nelida 05/04/19 at 2338, | | | | | | | First line agent, | | | | | | + +-------+ +------+---+---+ +-------+ +------+---+---+ | Given | 05/06/20 | 4 mg | | | | | 19 2:36 | | | | | | PM PST | | | | +-------+ +------+---+---+ +---+---+ | | | +---+---+ + +-------+ +-------+---+---+ | pantoprazole (PROTONIX) DR | Given | 05/08/20 | 40 mg | | | | tablet 40 mg 40 mg, Oral, DAILY | | 19 6:35 | | | | | BEFORE BREAKFAST, First dose on | | AM PST | | | | | 05/05/19 at 0730, Indication: | | | | | | | GERD | | | | | | + +-------+ +-------+---+---+ +-------+ +-------+---+---+ | Given | 05/07/20 | 40 mg | | | | | 19 6:52 | | | | | | AM PST | | | | +-------+ +-------+---+---+ | Given | 05/06/20 | 40 mg | | | | | 19 6:27 | | | | | | AM PST | | | | +-------+ +-------+---+---+ +---+---+ | | | +---+---+ + +---------+ +---------+-------+---+ | piperacillin-tazobactam (ZOSYN) | New Bag | 05/04/20 | 3.375 g | 200 | | | 3.375 g in sodium chloride 0.9% | | 19 5:42 | | mL/hr | | | 100 mL IVPB 3.375 g, | | PM PST | | | | | Intravenous, Administer over 0.5 | | | | | | | Hours, ONCE, [facility] 05/04/19 at | | | | | | | 1715, For 1 dose, Activate system | | | | | | | and mix before use., | | | | | | | Indications: Cellulitis | | | | | | + +---------+ +---------+-------+---+ +---+---+ | | | +---+---+ + +---------+ +---------+ +---+ | piperacillin-tazobactam (ZOSYN) | New Bag | 05/08/20 | 3.375 g | 25 mL/hr | | | 3.375 g in sodium chloride 0.9% | | 19 12:36 | | | | | 100 mL IVPB 3.375 g, | | PM PST | | | | | Intravenous, Administer over 4 | | | | | | | Hours, EVERY 8 HOURS INTERVAL, | | | | | | | First dose on Wed05/05/19 at | | | | | | | 0030, Extended-Infusion Zosyn | | | | | | | Protocol: infuse over 4 hours | | | | | | | when maintenance dose has a | | | | | | | frequency of Q8H (or Q12H for | | | | | | | renal dose adjustment). Activate | | | | | | | system and mix before use., | | | | | | | Indications: Osteomyelitis | | | | | | + +---------+ +---------+ +---+ +---------+ +---------+ +---+ | New Bag | 05/08/20 | 3.375 g | 25 mL/hr | | | | 19 4:50 | | | | | | AM PST | | | | +---------+ +---------+ +---+ | New Bag | 05/07/20 | 3.375 g | 25 mL/hr | | | | 19 9:00 | | | | | | PM PST | | | | +---------+ +---------+ +---+ + +---+ | | | + +---+ | promethazine (PHENERGAN) (IV | | | ONLY) injection 6.25 mg 6.25 mg, | | | Intravenous, EVERY 6 HOURS PRN, | | | Nausea, Vomiting, Starting Sat | | | 05/06/19 at 2309, Vesicant. When | | | ordered IV push: Dilute to | | | 10-20mL with NS. Give over 2-3 | | | minutes into large vein. Do not | | | give in hand/wrist or foot/ankle | | | vein. Max dose 12.5mg if giving | | | peripherally.Infuse in LARGE | | | Vein Only, | | + +---+ | | | + +---+ + +-------+ +---------+---+---+ | promethazine (PHENERGAN) tablet | Given | 05/07/20 | 12.5 mg | | | | 12.5 mg 12.5 mg, Oral, EVERY 6 | | 19 6:52 | | | | | HOURS PRN, Nausea, Vomiting, | | AM PST | | | | | Starting 05/07/19 at 0007 | | | | | | + +-------+ +---------+---+---+ +-------+ +---------+---+---+ | Given | 05/07/20 | 12.5 mg | | | | | 19 12:13 | | | | | | AM PST | | | | +-------+ +---------+---+---+ +---+---+ | | | +---+---+ + +---------+ +---+ +---+ | sodium chloride 0.9% (NS) | New Bag | 05/07/20 | | 75 mL/hr | | | infusion at 75 mL/hr, | | 19 1:04 | | | | | Intravenous, CONTINUOUS, Starting | | AM PST | | | | | 05/05/19 at 0000 | | | | | | + +---------+ +---+ +---+ +---------+ +--------+ +---+ | New Bag | 05/06/20 | | 75 mL/hr | | | | 19 9:55 | | | | | | AM PST | | | | +---------+ +--------+ +---+ | New Bag | 05/05/20 | 1,000 | 75 mL/hr | | | | 19 8:10 | mLs | | | | | PM PST | | | | +---------+ +--------+ +---+ +---+---+ | | | +---+---+ + +---------+ + +-------+---+ | vancomycin 1,250 mg in sodium | New Bag | 05/07/20 | 1,250 mg | 175 | | | chloride 0.9% 250 mL IVPB 1,250 | | 19 2:56 | | mL/hr | | | mg, Intravenous, Administer over | | AM PST | | | | | 90 Minutes, EVERY 12 HOURS | | | | | | | INTERVAL, First dose on Fri | | | | | | | 05/05/19 at 0030, Keep in | | | | | | | refrigerator., Indications: | | | | | | | Osteomyelitis | | | | | | + +---------+ + +-------+---+ +---------+ + +-------+---+ | New Bag | 05/06/20 | 1,250 mg | 175 | | | | 19 2:56 | | mL/hr | | | | PM PST | | | | +---------+ + +-------+---+ | New Bag | 05/06/20 | 1,250 mg | 175 | | | | 19 2:10 | | mL/hr | | | | AM PST | | | | +---------+ + +-------+---+ +---+---+ | | | +---+---+ documented in this encounter
--- OUTSIDE RECORDS SUMMARY | ~2019-09-14 | XMS | Encounter Summary ---
Demographics + + + | Address | [address] | | | [place] [address] | + + + | Home Phone | | + + + | Preferred Language | Unknown | + + + | Marital Status | Single | + + + | Sikh Affiliation | Unknown | + + + | Race | Unknown | + + + | Ethnic Group | Unknown | + + + Author + + + | Author | [facility] | | | and [facility] | + + + | Organization | [facility] | | | and [...] | | | | | [place] [address] | | + + + + + Care Team Providers + +------+ + | Care Direct Marketing Analyst Name | Role | Phone | + [...] | +--------+ + + + + | 05/29/ | Home Care | [facility] | Bre Irvin RN | SN REPEAT VISIT | | 2019 | Visit | [facility] [address] | | | | | | [place] | | | | | | [address] | | | | | | [phone] | | | +--------+ + + + [...] + + + | Blood Pressure | 148/70 | 05/29/2019 11:14 AM | | | | | PST | | + + + + + | Pulse | 68 | 05/29/2019 11:14 AM | | | | | PST | | + + + + + | Temperature | 36.2 C (97.1 F) | 05/29/2019 11:14 AM | | | | | PST | | + + + + + | Respiratory Rate | 16 | 05/29/2019 11:14 AM | | | | | PST | | + + + + + | Oxygen Saturation | 98% | 05/29/2019 11:14 AM | | | | | PST [...] - REPEAT VISIT | | Discipline - Retirement | + + + + +--------+--------+-------+ + | Problem | Description | Start | Status | Goals | Interventio | | | | Date | | | ns | + + +--------+--------+-------+ + | Central/Midline IV | PICC right upper | | | - | 4 problem | | Disciplines: | arm | 05/09/ | Active | | | | Retirement | | 2018 | | | interventio | | | | | | | ns | | | | | | | scheduled/d | | | | | | | ocumented | | | | | | | in this | | | | | | | visit | + + +--------+--------+-------+ + | HH SHARED PAIN | Pain | | | - | 1 problem | | Disciplines: | | 05/09/ | Active | | | | Retirement | | 2018 | | | interventio | | | | | | | n | | | | | | | scheduled/d | | | | | | | ocumented | | | | | | | in this | | | | | | | visit | + + +--------+--------+-------+ + | HH Surgical Wound | S/P left foot I&D | | | - | 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 | 05/09/ | Active | | | | Retirement | | 2018 | | | interventio | | | | | | | ns | | | | | | | scheduled/d | | | | | | | ocumented | | | | | | | in this | | | | | | | visit | + + +--------+--------+-------+ + | Knowledge Deficit, | | | | - | 1 problem | | Education, | | 05/09/ | Active | | | | Discharge Plan | | 2018 | | | interventio | | Disciplines: | | | | | n | | Retirement, | | | | | scheduled/d | | Patch Worker | | | | | ocumented | | | | | | | in this | | | | | | | visit | + + +--------+--------+-------+ + + + +--------+--------+ + | Intervention | Associated | Status | Varian | Visit Notes | | | Problem/Goal | | ce | | + + +--------+--------+ + | Assess and | Problem: | | | | | identify | Central/Midline IV | Comple | | | | complications from | | tj | | | | IV therapy | | | | | | Description: | | | | | | Assess and identify | | | | | | s/s of infection | | | | | | from PICC site. | | | | | + + +--------+--------+ + | Instruct in | Problem: | | | Instructed the patient | | administration of IV | Central/Midline IV | Comple | | and caregiver in | | solutions/meds per | [...] via | | | | administration of ABX: | | PICC daily until | | | | Yes | | 06/15/19 (Pt's | | [...] IV | Comple | | changed per C | | Transparent and | | tj | | protocol. Infusion caps | | sterile dressing | | | | primed and changed. | | change weekly on | | | | | | Wednesday and . | | | | | | Next dressing change | | | | | | is due on 05-29-19 | | | | | + + [...] ordered. Well | | Next due is 05/29/19 | | | | tolerated by patient. | | Send the result to | | | | Next lab draw due next | | [facility] also. | | | | wednesdayJun 05. | | [phone] | | | | | | Calvin / ASIF ICD10 | | | | | | code: I96 and | | | | | | M86.9 | | | | | + + +--------+--------+ + | Pain management | Problem: SHARED | | | | | Description: | PAIN | Comple | | | | Instruct PT/CG | | tj | | | | regarding pain | | | | | | management, | | | | | | providing teaching | | | | | | handout. Instruct | | | | | | PT/CG to take/ | | [...] +--------+--------+ + | Wound care | Problem: Surgical | | | Pt and CG refuse RN to | | Description: Wound | Wound | Comple | | do wound. Daughter is | | type: Left toes | | tj | | changing nightly. | | amputation and I&D. | | [...] | Problem: HH Surgical | | | wound not measured as | | Description: | Wound | Comple | | PT and CG refuse to let | | Measure wound every | | tj | | RN do wound care | | 2 weeks and prn. | | | | | + + +--------+--------+ + | Instruct wound | Problem: HH Surgical | | | patient and caregiver | | care Description: | Wound | Comple | | instructed in surgical | | Instruct pt/CG s/s | | tj | | wound care to left and | | of infection to | | | | foot. Wound care to | | notify medical | | | | consist of aseptic | | provider. | | | | cleanser. Apply Other: | | | | | | adaptic. and gauze | | | | | | Secure with cloth tape. | | | | | | patient and caregiver | | | | | | verbalize ability to | | | | | | perform wound care. | | | | | | | + + +--------+--------+ + | Discharge planning | Problem: Knowledge | | | | | Description: | Deficit, Education, | Comple | | | | Assess if the | Discharge Plan | tj | | | | established | | | | | | discharge plan is | | | | | | still agreeable with | | | | | | the | | | | | | patient/caregiver/fa | | | | [...]
--- OUTSIDE RECORDS SUMMARY | ~2019-09-14 | XMS | Encounter Summary ---
Demographics + + + | Address | [address] | | | [place] [address] | + + + | Home Phone | | + + + | Preferred Language | Unknown | + + + | Marital Status | Single | + + + | Scientology Affiliation | Unknown | + + + | Race | Unknown | + + + | Ethnic Group | Unknown | + + + Author + + + | Author | [facility] | | | and [facility] | + + + | Organization | [facility] | | | [...] | | | | | [place] [address] | | + + + + + Care Team Providers + +------+ + | Care Executive Talent Acquisition Consultant Name | Role | Phone | + +------+ + | Shi Miramontes | PCP | | + +------+ + Reason for Visit + + + | Reason | Comments | + + + | Follow-up | | + + + Encounter Details +--------+ + + + + | Date | Type | Department | Care Team | Description | +--------+ + + + + | 07/10/ | Telephone | [facility] | Tenisha Polanco, | Follow-up | | 2020 | | VASCULAR SURGERY | RN | | | | | [address] | | | | | | [place], [place] | | | | | | [address] | | | | | | [phone] | | | +--------+ + + + [...] Visit Diagnoses Not on filedocumented in this encounter"
--- OUTSIDE RECORDS SUMMARY | ~2019-09-14 | XMS | Encounter Summary ---
Demographics + + + | Address | [address] | | | [place] [address] | + + + | Home Phone | | + + + | Preferred Language | Unknown | + + + | Marital Status | Single | + + + | Congregational Affiliation | Unknown | + + + | Race | Unknown | + + + | Ethnic Group | Unknown | + + + Author + + + | Author | [facility] | | | [facility] | + + + | Organization | [facility] | | [...] [address] | | | | | [place] [address] | | + + + + + Care Team Providers + +------+ + | Care Asl Interpreter Name | Role | Phone | + [...] | | | | | | | PAD | | | | | | | (peripheral | | | | | | | artery | | | | | | | disease) | | | | | | | (HCC) | | | | | | | Procedures | | | | | | | IR ANGIOGRAM | | | | | | | LOWER | | | | | | | EXTREMITY | | | | | | | LEFT | | | +--------+--------+ + + + + Encounter Details +--------+---------+ + + + | Date | Type | Department | Care Team | Description | +--------+---------+ + + + | 07/05/ | Surgery | [facility] | Mustapha Wang, | AMPUTATION | | 2020 | | [facility] | DPM [address] | TRANSMETATARSAL | | | | OPERATING ROOM [address] | [address] [facility] | | | | | [address] | [place] [address] | | | | | [place], [place] | [phone] | | | | | [address] | | | | | | [phone] | | | +--------+---------+ + + + Social History + + [...] + + + | Blood Pressure | 117/71 | 07/07/2019 7:04 AM | | | | | PST | | + + + + + | Pulse | 82 | 07/07/2019 7:04 AM | | | | | PST | | + + + + + | Temperature | 36.7 C (98 F) | 07/07/2019 7:04 AM | | | | | PST | | + + + + + | Respiratory Rate | 18 | 07/07/2019 7:04 AM | | | | | PST | | + + + + + | Oxygen Saturation | 98% | 07/07/2019 7:04 AM | | | | | PST | | + + + + + | Inhaled Oxygen | - | - | | | Concentration | | | | + + + + + | Weight | 72.6 kg (160 lb) | 07/04/2019 9:56 AM | | | | | PST | | + + + + + | Height | 172.7 cm (5' 8") | 07/04/2019 9:56 AM | | | | | PST | | + + + + + | Body Mass Index | 24.33 | 07/04/2019 9:56 AM | | | | | PST [...] documented as of this encounter Discharge Summaries Chaparro Good MD - 07/07/2019 12:08 PM PSTFormatting of this note might be differe nt from the original. [facility]: Hospitalist Physician Discharge Summary Pt: Paul Bunn AGE/SEX: 73 y.o. male ROOM: [facility]/415- PCP: ANATOLY Rawls : 1945 Admit date: 07/04/2019 Discharge date and time: 07/07/2019 Admitting Physician: Madi Linares MD Discharge Physician: Chaparro Good MD Consults: Dr. sandy Wang Primary Discharge Diagnoses: Principal Problem: PAD (peripheral artery disease) Active Problems: Amputation stump infection Hypertension Diabetes mellitus type II, ORAL Control GERD (gastroesophageal reflux disease) Smoker - Daily Secondary Discharge Diagnoses: Discharged Condition: stable Significant Diagnostic Studies: Recent Results (from the past 360 hour(s)) XR Foot Left 2 Vw Impression New surgical changes from mid 2nd through 5th mid metatarsal amputation. Old proximal 1st metatarsal amputation unchanged. Cutaneous surgical prashanth are in place. Signed by: Lavon Cano Gordon Sign Date/Time: 07/05/2019 5:50 PM HPI and Hospital Course: 73-year-old male with past medical history of type 2 diabetes mellitus, hypertension, hype rlipidemia, ongoing tobacco use, peripheral arterial disease status post right AKA in 2011 a nd left TMA in April of last year presented with left sided foot pain and nonhealing surg ical wound. Vascular surgical services were consulted and he underwent left lower extremity angiogram with angioplasty of left suprficial femoral artery and balloon angioplasty of pop liteal artery on 07/04/2019. Dr. 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 Patient is curre ntly on Ancef as per Dr. Diallo. Previous wound culture has grown MSSA and Enterobacter. Hospital course: Postoperative course was uncomplicated and patient did well as far as pain is concerned. I spoke with Dr. Diallo who suggested to discontinue antibiotics upon discharge as offending infected bones were dissected during surgery and patient did not show any signs of sepsis o r active infection. Initially it was thought that patient would benefit from going [facility] facility. However patient insists on going home. Patient has a very caring deshawn mckeon who is willing to take care of her father at home and he already has necessary equipment a t home that he received after his previous surgery.. Therapist saw patient today and he is also of the opinion that patient can safely be discharged home. He will follow with Dr. Ollie akers, Dr. Wang and her primary care physician on outpatient basis. Family will provide wo und care and dressing changes. Discharge Vitals: Vitals: 07/06/19 1925 07/06/19 2325 07/07/19 0357 07/07/19 0704 BP: 117/56 114/54 115/49 117/71 Pulse: 62 66 70 82 Resp: 18 18 19 18 Temp: 36.9 C (98.5 F) 36.9 C (98.4 F) 36.8 C (98.3 F) 36.7 C (98 F) TempSrc: Oral Oral Oral Oral SpO2: 99% 100% 99% 98% Weight: Height: Discharge Exam: Constitutional: He is oriented to person, place, and time and well-developed, well-nourishe d, and in no distress. No distress. HENT: Head: Normocephalic. Mouth/Throat: No oropharyngeal exudate. Eyes: No scleral icterus. Left cornea hazy and opaque Neck: Neck supple. No JVD present. Cardiovascular: Normal rate, regular rhythm, normal heart sounds and intact distal pulses. Exam reveals no gallop and no friction rub. No murmur heard. Pulmonary/Chest: Breath sounds normal. No respiratory distress. He has no wheezes. He has n o rales. He exhibits no tenderness. Abdominal: Soft. Bowel sounds are normal. He exhibits no distension. There is no abdominal tenderness. There is no rebound and no guarding. Supraumbilical reducible hernia. Musculoskeletal: Comments: Left foot covered with dressing and bandage. Left elbow D stump dry and nontender. Neurological: He is alert and oriented to person, place, and time. Skin: Skin is warm and dry. No rash noted. He is not diaphoretic. No erythema. No pallor. Psychiatric: Mood, memory, affect and judgment normal. LABS: Recent Labs Lab 07/05/19 1244 07/04/19 0915 WBC 7.26 7.76 HGB 13.0* 14.7 HCT 40.1 43.2 PLT 254 275 MONOPCT 7.40 -- Recent Labs Lab 07/07/19 0418 07/05/19 1244 07/04/19 0915 NA 135 135 134* K 3.8 4.3 5.4* CL 102 104 103 CO2 26 27 27 BUN 9 11 9 CALCIUM 8.7 8.7 8.8 No results for input(s): LABALBU in the last 168 hours. No results for input(s): MG in the last 168 hours. No results for input(s): AMYLASE in the last 168 hours. No results for input(s): PHART, PO2ART, EUE1WLK, K8ASPUKM, BEART in the last 168 hours. No results for input(s): APTT, INR, PTT in the last 168 hours. No results for input(s): TROPONINT in the last 168 hours. Invalid input(s): CKTOTAL, TROPONINI, CKMBINDEX Disposition: Home Discharge medications: Discharge Medications Changed Medications Details metoprolol succinate 50 mg 24 hr tablet Take 1 tablet by mouth Daily. What changed: how much to take aka: TOPROL-XL Unchanged Medications Details ascorbic acid 500 mg [...] by mouth 2 times daily. aka: COLACE FIBER ADULT GUMMIES PO Take 1-2 tablets by mouth Daily. fish oil 1,000 mg capsule Take 1,000 mg by mouth 2 times daily. gabapentin 300 mg capsule Take 600 mg by mouth every 4 hours. For neuropathy and QUINTERO pain aka: NEURONTIN HEPARIN (PORCINE) LOCK FLUSH IV 5 mLs by IV Push route as needed (after IV therapy and lab draw). HYDROcodone-acetaminophen 10-325 mg per tablet Take 1 tablet by mouth 4 times daily as needed for Pain. aka: NORCO lisinopril 20 mg tablet Take 20 mg by mouth Daily. aka: PRINIVIL, ZESTRIL magnesium oxide 420 MG Tabs Take 840 mg by mouth Daily. aka: MAOX metFORMIN 1000 MG tablet Take 1,000 mg by mouth 2 times daily (with breakfast & dinner). aka: GLUCOPHAGE MULTIPLE VITAMINS-MINERALS PO Take 1 tablet by mouth Daily. naloxone 4 mg/nasal spray 4 mg by Nasal route as needed. [place] 1 dose in nose as directed as needed for accidental o pioid (pain medication) overdose. May repeat in other nostril in 3-5 minutes if needed. Mason l 911. aka: NARCAN naproxen 250 mg tablet Take 250 mg by mouth. Every 8-12 hours as needed for pain aka: NAPROSYN nicotine 21 mg/[address] 1 patch [...] 12 (maxim um 20 lozenges/day) aka: COMMIT NORMAL SALINE FLUSH IV 10 mLs by IV Push route as needed (before and after IV therapy). omeprazole 20 mg capsule Take 20 mg [...] Take 150 mg by mouth nightly. aka: DESYREL Patient Instructions: Activity: activity as tolerated Diet: diabetic diet Wound Care: as directed Total time of discharge: 35 minutes. This included talking to patient, examining patient, d iscussing outpatient plan of care, reconciling home medications and dictating discharge summ paula. Follow-up with PCP in 1 week. Signed: Chaparro Good MD 07/07/2019 12:08 PM Dictation software, Boracci used which may contain errors for similar sounding words even af ter reviewed . Personal communication requested for any clarification. documented in t his encounter Discharge Instructions Instructions Debora Melendez PA - 07/05/2019 Peripheral Angiography Peripheral angiography is an outpatient procedure that makes a map of the vessels (ar teries) in your lower body, legs, and arms, using X-ray and dye.This map can show where bloo d flow may be blocked. Talk with your healthcare provider about the risks and complications of angiography. Before the procedure Prepare for the peripheral angiography as follows: Tell your healthcare provider about all medicines you take and any allergies you may hav e. Follow any directions you re given for not eating or drinking before the procedure. If your provider says to take your normal medicines, swallow them with only small sips of wate r. Arrange for a family member or friend to drive you home. During the procedure Here is what to expect: You may get medicine through an IV (intravenous) line to relax you. You re given an injec tion to numb the insertion site. Then, a tiny skin cut (incision) is made near an artery in your groin. Your provider inserts a thin tube (catheter) through the incision. He or she then thread s the catheter into an artery while looking at a video monitor. Contrast dye is injected into the catheter to confirm position. You may feel warmt h or pressure in your legs and back. You lie still as X-rays are taken. The catheter is then taken out. After the procedure You ll be taken to a recovery area. A healthcare provider will apply pressure to the site for about 10 minutes. Your healthcare provider will tell you how long to lie down and keep the insertion site still.Your healthcare provider will discuss the results with you soon a fter the procedure. Back at home On the day you get home, don t drive, don t exercise, avoid walking and taking stairs, and avoid bending and lifting. Your healthcare provider may give you other care instructions . Call your healthcare provider Call your healthcare provider right away if: You notice a lump or bleeding at the insertion site You feel pain at the insertion site You become lightheaded or dizzy You have leg pain or numbness You do not urinate in 8 hours Date Last Reviewed: 09/22/201519997801-[address] [place] [address]. All righ ts reserved. This information is not intended as a substitute for professional medical care. Always follow your healthcare professional's instructions. documented in this encounter Medications at Time of [...] + + + +---------+ + + | FIBER ADULT | Take 1-2 tablets by | | 0 | 05/29/19 | | | GUMMIES PO | mouth Daily. | | | 20 | | + + + +---------+ + [...] + + + +---------+ + + | Heparin Lock Flush | 5 mLs by IV Push | | 0 | 05/09/20 | | | (HEPARIN, PORCINE, | route as needed | | | 19 | | | LOCK FLUSH IV) | (after IV therapy | | | | | | | and lab draw). | | | | | + + + +---------+ + + | | Take 1 tablet by | 20 | 0 | 07/07/19 | | | HYDROcodone-acetamin | mouth 4 times daily | tablet | | 20 | | | ophen (NORCO) 10-325 | as needed for Pain. | | | | | | mg per tablet | | | | | | + + + +---------+ + + | Lactobacillus | Take 1 capsule by | 30 | 0 | 02/19/20 | | | (PROBIOTIC | mouth 2 [...] +---------+ + + | metoprolol | Take 1 tablet by | | 0 | 07/07/19 | | | succinate | mouth Daily. | | | 20 | | | (TOPROL-XL) 50 mg 24 | [...] | 4 mg/nasal spray | as needed. [place] 1 | | | | | | [...] patch onto | 30 | 0 | 05/09/20 | | | (NICODERM) 21 mg/24 | the skin Daily. | patch | | 19 | | | hr | | | | | | + + + +---------+ + + | nicotine | One lozenge should | 72 | 0 | 05/08/20 | | | polacrilex (COMMIT) | be [...] + + + +---------+ + + | Sodium Chloride | 10 mLs by IV Push | | 0 | 05/09/20 | | | Flush (NORMAL SALINE | route as needed | | | 19 | | | FLUSH IV) | (before and after IV | | | | | | | therapy). | | | | | + + [...] documented as of this encounter Progress Notes Sia Pascal RN - 07/07/2019 12:36 PM PSTPt discharged to home after daughter arrived and Physical Therapy did their eval. It was deemed pt had all equipment needed and was able to safely perform transfers out of bed and into wheelchair independently. Pt had lot's of exp erience from previous procedure. Pt was medicated with oxycodone 10mg prior to discharge as he has [address] filling his RX. [address] to dc. --Noted NGA 07/07/2019 @ 1239 12: 39 PM PSTUrsales, Ashley Springer MD - 07/07/2019 10:14 AM PSTFormatting of this note mi ght be different from the original. [facility]: Infectious Diseases Progress Note Hospital Day: LOS: 2 days Post-Op Day: 3 Days Post-Op CC: follow up on infection and antibiotic therapy SUBJECTIVE/OVERNIGHT EVENTS The patient remains on treatment with antibiotics. No acute events over last 24 hours are reported. REVIEW OF SYSTEMS: fast asleep; no overnight issues MEDICATIONS: Reviewed PHYSICAL EXAM Vital Signs: BP 117/71 | Pulse 82 | Temp 36.7 C (98 F) (Oral) | Resp 18 | Ht 1.727 m (5' 8") | Wt 72.6 kg (160 lb) | SpO2 98% | BMI 24.33 kg/m Focused exam shows: General exam: No distress, cooperative with exam. HEENT: sclera non-icteric, no visible oral thrush Extremities/MSK: R AKA; L foot bandaged Skin: No lesions, normal turgor LABS: MICRO: No cultures date All labs were reviewed.Data: Recent Results (from the past 24 hour(s)) POC Glucose Result Value Ref Range Glucose, POC 192 (H) 65 - 99 mg/dL POC Glucose Result Value Ref Range Glucose, POC 136 (H) 65 - 99 mg/dL POC Glucose Result Value Ref Range Glucose, POC 106 (H) 65 - 99 mg/dL Basic Metabolic Panel Result Value Ref Range Na 135 135 - 145 mmol/L K 3.8 3.5 - 4.9 mmol/L Cl 102 99 - 109 mmol/L CO2 26 23 - 32 mmol/L Anion Gap 11 5 - 20 mmol/L Glucose 169 (H) 65 - 99 mg/dL BUN 9 8 - 25 mg/dL Creatinine 0.93 0.70 - 1.30 mg/dL BUN/Creatinine Ratio 10 Calcium 8.7 8.5 - 10.5 mg/dL Estimated GFR >60 >60 mL/min/1.73m2 POC Glucose Result Value Ref Range Glucose, POC 134 (H) 65 - 99 mg/dL Problem List: Principal Problem: PAD (peripheral artery disease) Active Problems: Amputation stump infection Hypertension Diabetes mellitus type II, ORAL Control GERD (gastroesophageal reflux disease) Smoker - Daily ASSESSMENT & PLAN The patient is a 73 y.o.-year-old male with the following problems: L foot OM, S/P L TMA on 07/05/19 Patient has no fevers, chills, white count normal; observe off abx MRSA screen negative ___Ok to d/c form ID standpoint Peripheral artery disease status post evaluation by vascular surgery Dictation software, eDabba, used which may contain error for similar sounding words even af ter review. Personal communication requested for any clarification. Portions of this chart may have been copied from previous notes for continuity of care purp ose Ashley Diallo MD Infectious Diseases 07/07/2019 emetrice Enrique RN - 07/06/2019 6:11 PM PSTEnd of shift chart check complet e ustapha Wang DPM - 07/06/2019 4:44 PM PST [facility]: Foot and Ankle Surgery (Podiatry) Progress Note Hospital Day: LOS: 2 days Post-Op Day: 1 Day Post-Op Subjective: Patient Summary: The patient is 73 y.o. male with significant past medical history of many year tobacco use and severe peripheral arterial disease. Admitted for angioplasty of the le ft lower leg due to non-healing foot wound. Vascular surgery noted severity of foot wound a nd requested that I see the patient. He reports that he had left toe amputations 04/2019 wi subsequent LLE angiogram and stenting and with recent angioplasty by Dr. Linares. Current ly on IV ancef. Interval Events: s/p Transmetatarsal amputation left foot 2nd-5th metatarsals, had prior pa rtial 1st ray amputation ROS: All other systems negative except for those pertinent as noted in the "Subjective" sec tion above Scheduled Medications aspirin 81 mg Oral Daily atorvaSTATin 10 mg Oral Nightly ceFAZolin 1 g Intravenous 3 times per day clopidogrel 75 mg Oral Daily docusate sodium 200 mg Oral BID gabapentin 600 mg Oral 6 times per day heparin 5,000 Units Subcutaneous 3 times per day insulin lispro 0-6 Units Subcutaneous 4x Daily WC and HS lisinopril 20 mg Oral Daily metoprolol succinate 50 mg Oral Daily nicotine 1 patch Transdermal Daily tamsulosin 0.8 mg Oral Daily traZODone 150 mg Oral Nightly Continuous Infusions balanced electrolytes in water (PLASMALYTE-148/NORMOSOL-R) 30 mL/hr at 07/05/19 1526 dextrose 10% PRN Medications cyclobenzaprine, Hypoglycemia Management AND POCT Glucose AND dextrose AND dext marvin 10%, diphenhydrAMINE OR diphenhydrAMINE OR diphenhydrAMINE, hydrALAZINE, HYDROm orphone, naproxen, nicotine, oxyCODONE Objective: Temp: [36.7 C (98 F)-37.1 C (98.7 F)] 36.7 C (98 F) Pulse: [62-82] 82 Resp: [18-22] 18 BP: (113-141)/(49-71) 117/71 Exam: General: Patient alert and oriented and in no acute distress Psychiatric: Normal affect and mood Respiratory: Regular rate and rhythm no accessory muscle usage Focused lower extremity exam Cardiovascular: lower extremities appear well perfused, CFT brisk to exposed skin, splint l eft intact as there is no strikethrough bleeding on dressings Neurological: Diminished sensations to light touch to the toes of the non-operattive foot, normal sensation to light touch to the knee of operative limb Skin: Warm and dry Lymph: No lymphangitis appreciable Musculoskelatal: Absent forefoot of operative extremity Diagnostic studies: Available data and images were reviewed personally. See reports. Signi ficant results and findings are addressed here or in the Assessment and Plan. Recent Results (from the past 360 hour(s)) XR Foot Left 2 Vw Narrative LEFT FOOT TWO VIEWS CLINICAL INFORMATION: Post operative COMPARISON: XR FOOT LEFT 2 VW (05/04/2019); XR FOOT LEFT 3 + VW (05/04/2019); FINDINGS: New surgical changes from mid 2nd through 5th mid metatarsal amputation. Old proximal 1st metatarsal amputation unchanged. Cutaneous surgical prashanth are in place. Impression New surgical changes from mid 2nd through 5th mid metatarsal amputation. Old proximal 1st metatarsal amputation unchanged. Cutaneous surgical prashanth are in place. Signed by: Lavon Cano Gordon Sign Date/Time: 07/05/2019 5:50 PM Problem List: Principal Problem: PAD (peripheral artery disease) Active Problems: Amputation stump infection Hypertension Diabetes mellitus type II, ORAL Control GERD (gastroesophageal reflux disease) Smoker - Daily Assessment and Plan: S/p: Transmetatarsal amputation with co morbidities of severe PAD, active smoker, DM Date of surgery: 07/04/2019 Post op day: 1 Day Post-Op New data: Surgical path pending Dressing changes: None, leave dressing clean dry and intact, please call me for any striket hrough bleeding and reinforce dressing Weight bearing status: Strict nonweightbearing to the left foot or ankle Physical therapy has seen patient I need to see patient in ~14 days, patient to call for appt Code Status: Full Code Mustapha Wang DPM 07/07/2019 This document has been prepared with a voice recognition system. The possibility of "sound alike" bisque ware dipper errors, addition and/or deletions may occur. If there is any question p lease contact the author of the document. Ashley Lawton MD - 07/06/2019 9:45 AM PSTFormatting of this note might be different from the or iginal. [facility]: Infectious Diseases Progress Note Hospital Day: LOS: 1 day Post-Op Day: 2 Days Post-Op CC: follow up on infection and antibiotic therapy SUBJECTIVE/OVERNIGHT EVENTS The patient remains on treatment with antibiotics. No acute events over last 24 hours are reported. REVIEW OF SYSTEMS: Doing well; status post revision of TMA on July 05. MEDICATIONS: Reviewed PHYSICAL EXAM Vital Signs: BP 106/57 | Pulse 75 | Temp 37.1 C (98.8 F) (Oral) | Resp 18 | Ht 1.727 m (5' 8") | Wt 72.6 kg (160 lb) | SpO2 100% | BMI 24.33 kg/m Focused exam shows: General exam: No distress, cooperative with exam. HEENT: sclera non-icteric, no visible oral thrush Cardiovascular: regular rate and rhythm Lungs: no tachypnea, clear breath sounds. Mildly decreased at bases Abdomen: no distension, bowel sounds present Extremities: Right AKA; left TMA wound bandaged. Skin: No lesions, normal turgor Neurologic: Awake, cranial nerves intact. Follows commands. LABS: MICRO: no new micro data All labs were reviewed.Data: Recent Results (from the past 24 hour(s)) CBC with Differential Result Value Ref Range WBC 7.26 3.80 - 11.00 K/uL RBC 4.29 4.20 - 5.70 M/uL Hemoglobin 13.0 (L) 13.2 - 17.0 g/dL Hematocrit 40.1 39.0 - 50.0 % MCV 93.5 80.0 - 100.0 fl MCH 30.3 27.0 - 34.0 pg MCHC 32.4 32.0 - 35.5 g/dL RDW-SD 49.2 37 - 53 fl Platelet Count 254 150 - 400 K/uL MPV 12.0 fl Diff Type AUTOMATED % nRBC 0.0 0 /100WBC % Neutrophils 66.80 % IMMATURE GRANULOCYTE 0.10 % % Lymphocytes 24.20 % Monocyte % 7.40 % Eosinophils % 0.70 % Basophils % 0.80 % Neutrophils, Absolute 4.84 1.90 - 7.40 K/uL IMMATURE GRANS AB 0.01 0.00 - 0.07 K/uL Absolute Lymphocytes 1.76 1.00 - 3.90 K/uL Absolute Monocytes 0.54 0.00 - 0.80 K/uL Eosinophils, Absolute 0.05 0.00 - 0.50 K/uL Basophils, Absolute 0.06 0.00 - 0.10 K/uL Basic Metabolic Panel Result Value Ref Range Na 135 135 - 145 mmol/L K 4.3 3.5 - 4.9 mmol/L Cl 104 99 - 109 mmol/L CO2 27 23 - 32 mmol/L Anion Gap 8 5 - 20 mmol/L Glucose 108 (H) 65 - 99 mg/dL BUN 11 8 - 25 mg/dL Creatinine 0.96 0.70 - 1.30 mg/dL BUN/Creatinine Ratio 11 Calcium 8.7 8.5 - 10.5 mg/dL Estimated GFR >60 >60 mL/min/1.73m2 MRSA NAAT Result Value Ref Range SOURCE: NARES(NOSE) Result NEGATIVE MRSNEG POC Glucose Result Value Ref Range Glucose, POC 102 (H) 65 - 99 mg/dL POC Glucose Result Value Ref Range Glucose, POC 146 (H) 65 - 99 mg/dL Problem List: Principal Problem: PAD (peripheral artery disease) Active Problems: Amputation stump infection Hypertension Diabetes mellitus type II, ORAL Control GERD (gastroesophageal reflux disease) Smoker - Daily ASSESSMENT & PLAN The patient is a 73 y.o.-year-old male with the following problems: L foot OM, S/P L TMA on 07/05/19 Patient has no fevers, chills, white count normal Review of previous wound cultures in April during TMA showed MSSA as well as En terobacter MRSA screen negative Continue ancef for now with plan to d/c antibiotics unless clinical status worsens . Peripheral artery disease status post evaluation by vascular surgery Dictation software, eDabba, used which may contain error for similar sounding words even af ter review. Personal communication requested for any clarification. Portions of this chart may have been copied from previous notes for continuity of care purp jolantae sAhley Diallo MD Infectious Diseases 07/06/2019 iryani, Chaparro Howard MD - 07/06/2019 8:19 AM PSTFormatting of this note might be different from rebeca posadas. [facility]: Hospitalist Progress Note Hospital Day: LOS: 1 day Post-Op Day: 2 Days Post-Op SUBJECTIVE Patient Summary: 73-year-old male with past medical history of type 2 diabetes mellitu s, hypertension, hyperlipidemia, ongoing tobacco use, peripheral arterial disease status pos t right AKA in 2011 and left TMA in April of last year presented with left sided foot alex n and nonhealing surgical wound. Vascular surgical services were consulted and he underwent left lower extremity angiogram with angioplasty of left suprficial femoral artery and ballo on angioplasty of popliteal artery on 07/04/2019. Dr. Wang also saw patient and performed revision of left TMA yesterday as patient was found to have osteomyelitis of the tarsal bon es. Patient is currently on Ancef as per Dr. Diallo. Previous wound culture has grown NANDO A and Enterobacter. Events Overnight: Patient underwent revision of left foot TMA yesterday. Apart from m ild pain in left foot he denies any other symptoms. Patient is afebrile does not have any n ausea or vomiting. No chest pain, shortness of breath or cough. Scheduled Medications aspirin 81 mg Oral Daily atorvaSTATin 10 mg Oral Nightly ceFAZolin 1 g Intravenous 3 times per day clopidogrel 75 mg Oral Daily docusate sodium 200 mg Oral BID gabapentin 600 mg Oral 6 times per day insulin lispro 0-6 Units Subcutaneous 4x Daily WC and HS lisinopril 20 mg Oral Daily metoprolol succinate 50 mg Oral Daily nicotine 1 patch Transdermal Daily tamsulosin 0.8 mg Oral Daily traZODone 150 mg Oral Nightly Continuous Infusions balanced electrolytes in water (PLASMALYTE-148/NORMOSOL-R) 30 mL/hr at 07/05/19 1526 dextrose 10% PRN Medications cyclobenzaprine, Hypoglycemia Management AND POCT Glucose AND dextrose AND dext marvin 10%, diphenhydrAMINE OR diphenhydrAMINE OR diphenhydrAMINE, hydrALAZINE, HYDROm orphone, naproxen, nicotine, oxyCODONE OBJECTIVE Vital Signs: BP 106/57 | Pulse 75 | Temp 37.1 C (98.8 F) (Oral) | Resp 18 | Ht 1.727 m (5' 8") | Wt 72.6 kg (160 lb) | SpO2 100% | BMI 24.33 kg/m Physical Exam Constitutional: He is oriented to person, place, and time and well-developed, well-nourishe d, and in no distress. No distress. HENT: Head: Normocephalic. Mouth/Throat: No oropharyngeal exudate. Eyes: No scleral icterus. Left cornea hazy and opaque Neck: Neck supple. No JVD present. Cardiovascular: Normal rate, regular rhythm, normal heart sounds and intact distal pulses. Exam reveals no gallop and no friction rub. No murmur heard. Pulmonary/Chest: Breath sounds normal. No respiratory distress. He has no wheezes. He has n o rales. He exhibits no tenderness. Abdominal: Soft. Bowel sounds are normal. He exhibits no distension. There is no abdominal tenderness. There is no rebound and no guarding. Supraumbilical reducible hernia. Musculoskeletal: Comments: Left foot covered with dressing and bandage. Left elbow D stump dry and nontender. Neurological: He is alert and oriented to person, place, and time. Skin: Skin is warm and dry. No rash noted. He is not diaphoretic. No erythema. No pallor. Psychiatric: Mood, memory, affect and judgment normal. DATA Recent Labs Lab 07/05/19 1244 07/04/19 0915 WBC 7.26 7.76 HGB 13.0* 14.7 HCT 40.1 43.2 PLT 254 275 MONOPCT 7.40 -- Recent Labs Lab 07/05/19 1244 07/04/19 0915 NA 135 134* K 4.3 5.4* CL 104 103 CO2 27 27 BUN 11 9 CALCIUM 8.7 8.8 Phosphorus: No results found for: PHOS DATA Recent Results (from the past 360 hour(s)) VAS Lwr Ext Art Rt w BERT Multi Lvl Narrative VASCULAR LOWER EXTREMITY ARTERIAL RIGHT W BERT MULTI LEVEL CLINICAL INFORMATION: Consult for Peripheral vascular disease. COMPARISON: CT ANGIOGRAM LOWER EXTREMITY RIGHT W CONTRAST (02/02/2017); CT FEMUR THIGH RIGHT W CONTRAST (03/20/2017); PROCEDURE: Eight megahertz linear sonographic grayscale, color flow, spectral Doppler evaluation of the arterial structures of the left lower extremity. Dorsalis pedis and posterior tibial arteries used for BERT calculation. Ankle-brachial indices, segmental pressures, doppler waveforms and pulse volume waveforms were obtained bilaterally. FINDINGS: Vessel, peak systolic velocity in cm/sec, waveform analysis: Left lower extremity: SOAKER HELPER prox: 254, biphasic DFA prox: 270, biphasic SFA prox: 307, monophasic SFA dist: 253, monophasic Pop mid: 36, monophasic PIETER prox: 43, monophasic PIETER dist: 21, monophasic MUSIC PUBLISHER prox: 39, monophasic MUSIC PUBLISHER dist: 28, monophasic Peroneal prox: 10, monophasic Peroneal dist: 9, monophasic Right brachial systolic blood pressure: 130 4 mm Hg Left brachial systolic blood pressure 138 mmHg Right above the knee amputation. Left posterior tibial: 45 mm Hg, BERT 0.33 Left dorsalis pedis: 35, BERT 0.25 Transmetatarsal amputation. Monophasic waveforms at the left ankle sites. Impression 1. Biphasic SOAKER HELPER inflow. 2. Tandem stenosis SFA. >50% stenosis proximal SFA 101-270 cm/sec (2.7 fold). > 70% stenosis distal SFA 36-253 cm/sec (7 fold). 3. Monophasic popliteal outflow. 4. Appears to be three-vessel runoff, however technically difficult to assess due to arterial wall calcification. 1. Right leg AKA. 2. Left ankle monophasic waveforms. 3. Severely diminished left BERT. 4. Left transmetatarsal amputation. Criteria 0.97 to 1.25 No significant PAD 0.75 to 0.96 Mild 0.50 to 0.74 Moderate <0.50 Severe <0.30 Critical (Noninvasive Vascular Diagnosis, Cristobal, [employer], 2002, [place] Signed by: Lavon Villarreal Shawn Sign Date/Time: 06/22/2019 12:26 PM XR Foot Left 2 Vw Narrative LEFT FOOT TWO VIEWS CLINICAL INFORMATION: Post operative COMPARISON: XR FOOT LEFT 2 VW (05/04/2019); XR FOOT LEFT 3 + VW (05/04/2019); FINDINGS: New surgical changes from mid 2nd through 5th mid metatarsal amputation. Old proximal 1st metatarsal amputation unchanged. Cutaneous surgical prashanth are in place. Impression New surgical changes from mid 2nd through 5th mid metatarsal amputation. Old proximal 1st metatarsal amputation unchanged. Cutaneous surgical prashanth are in place. 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 Patient underwent re vision of the TMA by Dr. Wang yesterday. Dr. Diallo saw patient prior to surgery and is on IV Ancef based on previous cultures that grew Enterobacter and MSSA. [facility] use per Dr. Diallo. PAD. Dr. Linares performed angiogram with angioplasty of left superficial femoral artery an d left popliteal artery 2 days ago. Patient is on aspirin and will resume Plavix as patient has no signs of active bleeding from surgical site. Type 2 diabetes mellitus. Patient had several complications related to diabetes mellitus i ncluding peripheral arterial disease and peripheral neuropathy. Metformin is on hold and wi ll continue sliding scale insulin. Last hemoglobin was 6.6% on 05/05/2019. Essential hypertension. Controlled. Patient is on lisinopril and on metoprolol and will c ontinue both. Hyperkalemia upon presentation. Yesterday's potassium was 4.3. Will follow potassium leve ls and discontinue lisinopril if patient has persistent hyperkalemia. Renal function is nor mal. Tobacco abuse disorder. We will continue nicotine patches. DVT prophylaxis. Will start patient on subcu heparin. Disposition: Pending clinical course. Code Status: Full Code Chaparro Good MD 07/06/2019 Dictation software, [employer] used which may contain errors for similar sounding words even af ter reviewed . Personal communication requested for any clarification. Debora Burgess PA - 07/05/2019 11:59 AM PSTPt seen this morning. S/p LLE angiogram and angioplasty of PA and SFA yesterday for SF A stents occlusion. 3 vessel runoff at conclusion of case. Lt foot stump well perfused with strong signal to DP and PT. Dr Wang of Podiatry was consulted today for nonhealing TMA wo und with bone exposure. As per Dr Wang, pt will benefit from revision of amputation and A bx. Pt will be admitted to hospital med. We will defer to Podiatry for specilty care. Pt ollie l f/u with Dr Linares in clinic in 2 weeks with VAS LLE at visit. Dr Wang's work is highly appreciated. Mehdi Monson RN - 07/04/2019 6:49 PM PSTReceived call Back from Dr. Linares who will order pt home meds. Also, Dr. Linares verified pt staying overnight to be seen by podiatry in the morning. Salina Monson RN - 07/04/2019 6:[address] Linares for orders for pt MUSIC PUBLISHER meds for overnight stay. Left message for docume nted in this encounter Plan of Treatment Not on filedocumented as of this encounter Procedures + +--------+ + + + | Procedure Name | Priori | Date/Time | Associated Diagnosis | Comments | | | ty | | | | + +--------+ + + + | POC GLUCOSE (NON | Routin | 07/07/2019 | | Results for this | | ORD) | e | 7:39 AM | | procedure are in the | | | | PST | | results section. | + +--------+ + + + | BASIC METABOLIC | STAT | 07/07/2019 | | Results for this | | PANEL | | 4:18 AM | | procedure are in the | | | | PST | | results section. | + +--------+ + + + | POC GLUCOSE (NON | Routin | 07/06/2019 | | Results for this | | ORD) | e | 9:26 PM | | procedure are in the | | | | PST | | results section. | + +--------+ + + + | POC GLUCOSE (NON | Routin | 07/06/2019 | | Results for this | | ORD) | e | 4:28 PM | | procedure are in the | | | | PST | | results section. | + +--------+ + + + | POC GLUCOSE (NON | Routin | 07/06/2019 | | Results for this | | ORD) | e | 12:10 PM | | procedure are in the | | | | PST | | results section. | + +--------+ + + + | POC GLUCOSE (NON | Routin | 07/06/2019 | | Results for this | | ORD) | e | 7:26 AM | | procedure are in the | | | | PST | | results section. | + +--------+ + + + | POC GLUCOSE (NON | Routin | 07/05/2019 | | Results for this | | ORD) | e | 9:01 PM | | procedure are in the | | | | PST | | results section. | + +--------+ + + + | XR FOOT LEFT 2 VW | STAT | 07/05/2019 | | Results for this | | | | 5:34 PM | | procedure are in the | | | | PST | | results section. | + +--------+ + + + | POC GLUCOSE (NON | Routin | 07/05/2019 | | Results for this | | ORD) | e | 4:54 PM | | procedure are in the | | | | PST | | results section. | + +--------+ + + + | SURGICAL PATHOLOGY | Routin | 07/05/2019 | PAD (peripheral | Results for this | | EXAM | e | 4:22 PM | artery disease) | procedure are in the | | | | PST | ([facility]) Diabetes | results section. | | | | | mellitus type II, | | | | | | non insulin | | | | | | dependent (HCC) | | | | | | Smoker | | + +--------+ + + + | AMPUTATION | | 07/05/2019 | PAD (peripheral | | | TRANSMETATARSAL | | 3:38 PM | artery disease) | | | | | PST | ([facility]) Diabetes | | | | | | mellitus type II, | | | | | | non insulin | | | | | | dependent ([facility]) | | | | | | Smoker | | + +--------+ + + + | MRSA NAAT | Routin | 07/05/2019 | | Results for this | | | e | 1:36 PM | | procedure are in the | | | | PST | | results section. | + +--------+ + + + | CBC WITH | STAT | 07/05/2019 | | Results for this | | DIFFERENTIAL | | 12:44 PM | | procedure are in the | | | | PST | | results section. | + +--------+ + + + | BASIC METABOLIC | STAT | 07/05/2019 | | Results for this | | PANEL | | 12:44 PM | | procedure are in the | | | | PST | | results section. | + +--------+ + + + | IR ANGIOGRAM LOWER | Routin | 07/04/2019 | PAD (peripheral | Results for this | | EXTREMITY LEFT | e | 1:50 PM | artery disease) | procedure are in the | | | | PST | ([facility]) | results section. | + +--------+ + + + | POC GLUCOSE (NON | Routin | 07/04/2019 | | Results for this | | ORD) | e | 9:39 AM | | procedure are in the | | | | PST | | results section. | + +--------+ + + + | CBC NO DIFFERENTIAL | STAT | 07/04/2019 | | Results for this | | | | 9:15 AM | | procedure are in the | | | | PST | | results section. | + +--------+ + + + | BASIC METABOLIC | STAT | 07/04/2019 | | Results for this | | PANEL | | 9:15 AM | | procedure are in the | | | | PST | | results section. | + +--------+ + + + documented in this encounter Results POC Glucose (07/07/2019 7:39 AM PST) + + + + + + | Component | Value | Ref Range | Performed | Pathologist | | | | | At | Signature | + + + + + + | Glucose, | 134 (H)Comment: Testing | 65 - 99 mg/dL | [facility] | | | POC | performed at [facility];[address] | | LABORATORY | | | | [address];[place] | | | | | | [address] | | | | + + + + + + + + | Specimen | + + | | + + + + + + + | Performing | Address | City/State/Zipcode | Phone Number | | Organization | | | | + + + + + | [facility] | [address] | [place] [address] | [phone] | + + + + + Basic Metabolic Panel (07/07/2019 4:18 AM PST) + + + + + + | Component | Value | Ref Range | Performed | Pathologist | | | | | At | Signature | + + + + + + | Na | 135 | 135 - 145 | [facility] | | | | | mmol/L | LABORATORY | | + + + + + + | K | 3.8 | 3.5 - 4.9 | [facility] | | | | | mmol/L | LABORATORY | | + + + + + + | Cl | 102 | 99 - 109 mmol/L | [facility] | | | | | | LABORATORY | | + + + + + + | CO2 | 26 | 23 - 32 mmol/L | [facility] | | | | | | LABORATORY | | + + + + + + | Anion Gap | 11 | 5 - 20 mmol/L | [facility] | | | | | | LABORATORY | | + + + + + + | Glucose | 169 (H) | 65 - 99 mg/dL | [facility] | | | | | | LABORATORY | | + + + + + + | BUN | 9 | 8 - 25 mg/dL | [facility] | | | | | | LABORATORY | | + + + + + + | Creatinine | 0.93 | 0.70 - 1.30 | [facility] | | | | | mg/dL | LABORATORY | | + + + + + + | BUN/Creatin | 10 | | [facility] | | | ine Ratio | | | LABORATORY | | + + + + + + | Calcium | 8.7 | 8.5 - 10.5 | [facility] | | | | | mg/dL | LABORATORY | | + + + + + + | Estimated | >60Comment: GFR <60: | >60 | [facility] | | | GFR | CHRONIC KIDNEY DISEASE, | mL/min/1.73m2 | LABORATORY | | | | IF FOUND OVER A 3 MONTH | | | | | | PERIOD.GFR <15: KIDNEY | | | | | | FAILURE.FOR | | | | | | AMERICANS, MULTIPLY THE | | | | | | CALCULATED GFR BY | | | | | | 1.210.This eGFR is | | | | | | calculated using the | | | | | | MDRD IDMS traceable | | | | | | equation.Testing | | | | | | performed at [facility];[address] | | | | | | [address];[place] | | | | | | [address] | | | | + + + + + + + + | Specimen | + + | Blood | + + + + + + + | Performing | Address | City/State/Zipcode | Phone Number | | Organization | | | | + + + + + | [facility] | [address] | [place] [address] | [phone] | + + + + + POC Glucose (07/06/2019 9:26 PM PST) + + + + + + | Component | Value | Ref Range | Performed | Pathologist | | | | | At | Signature | + + + + + + | Glucose, | 106 (H)Comment: Testing | 65 - 99 mg/dL | [facility] | | | POC | performed at [facility];[address] | | LABORATORY | | | | [address];[place], [place] | | | | | | [address] | | | | + + + + + + + + | Specimen | + + | | + + + + + + + | Performing | Address | City/State/Zipcode | Phone Number | | Organization | | | | + + + + + | [facility] | [address] | [place] [address] | [phone] | + + + + + POC Glucose (07/06/2019 4:28 PM PST) + + + + + + | Component | Value | Ref Range | Performed | Pathologist | | | | | At | Signature | + + + + + + | Glucose, | 136 (H)Comment: Testing | 65 - 99 mg/dL | [facility] | | | POC | performed at [facility];[address] | | LABORATORY | | | | [address];[place] | | | | | | [address] | | | | + + + + + + + + | Specimen | + + | | + + + + + + + | Performing | Address | City/State/Zipcode | Phone Number | | Organization | | | | + + + + + | [facility] | [address] | [place] [address] | [phone] | + + + + + POC Glucose (07/06/2019 12:10 PM PST) + + + + + + | Component | Value | Ref Range | Performed | Pathologist | | | | | At | Signature | + + + + + + | Glucose, | 192 (H)Comment: Testing | 65 - 99 mg/dL | [facility] | | | POC | performed at [facility];[address] | | LABORATORY | | | | [address];[place] | | | | | | [address] | | | | + + + + + + + + | Specimen | + + | | + + + + + + + | Performing | Address | City/State/Zipcode | Phone Number | | Organization | | | | + + + + + | [facility] | [address] | [place] [address] | [phone] | + + + + + POC Glucose (07/06/2019 7:26 AM PST) + + + + + + | Component | Value | Ref Range | Performed | Pathologist | | | | | At | Signature | + + + + + + | Glucose, | 119 (H)Comment: Testing | 65 - 99 mg/dL | [facility] | | | POC | performed at [facility];[address] | | LABORATORY | | | | [address];[place], [place] | | | | | | [address] | | | | + + + + + + + + | Specimen | + + | | + + + + + + + | Performing | Address | City/State/Zipcode | Phone Number | | Organization | | | | + + + + + | [facility] | [address] | [place] [address] | [phone] | + + + + + POC Glucose (07/05/2019 9:01 PM PST) + + + + + + | Component | Value | Ref Range | Performed | Pathologist | | | | | At | Signature | + + + + + + | Glucose, | 146 (H)Comment: Testing | 65 - 99 mg/dL | [facility] | | | POC | performed at [facility];[address] | | LABORATORY | | | | [address];[place] | | | | | | [address] | | | | + + + + + + + + | Specimen | + + | | + + + + + + + | Performing | Address | City/State/Zipcode | Phone Number | | Organization | | | | + + + + + | [facility] | [address] | [place] [address] | [phone] | + + + + + XR Foot Left 2 Vw (07/05/2019 5:34 PM PST) + + | Specimen | + + | | + + + + + | Impressions | Performed At | + + + | New surgical changes from mid 2nd through 5th mid metatarsal | [facility] | | amputation. Old proximal 1st metatarsal amputation unchanged. | | | Cutaneous surgical prashanth are in place. Signed by: Jerome, | | | Sarbjit Doll Sign Date/Time: 07/05/2019 5:50 PM | | + + + + + + | Narrative | Performed At | + + + | LEFT FOOT TWO VIEWS CLINICAL INFORMATION: Post operative | [facility] | | COMPARISON: XR FOOT LEFT 2 VW (05/04/2019); XR FOOT LEFT 3 + VW | | | (05/04/2019); FINDINGS: New surgical changes from mid 2nd through | | | 5th mid metatarsal amputation. Old proximal 1st metatarsal | | | amputation unchanged. Cutaneous surgical prashanth are in place. | | + + + + + | Procedure Note | + + | Gordy, Rad Results In - 07/05/2019 5:53 PM PST | | LEFT FOOT TWO VIEWS | | | | CLINICAL INFORMATION: | | Post operative | | | | COMPARISON: | | XR FOOT LEFT 2 VW (05/04/2019); XR FOOT LEFT 3 + VW (05/04/2019); | | | | FINDINGS: | | New surgical changes from mid 2nd through 5th mid metatarsal | | amputation. Old proximal 1st metatarsal amputation unchanged. | | Cutaneous surgical prashanth are in place. | | | | IMPRESSION: | | New surgical changes from mid 2nd through 5th mid metatarsal | | amputation. Old proximal 1st metatarsal amputation unchanged. | | Cutaneous surgical prashanth are in place. | | | | | | | | Signed by: Lavon Cano Gordon | | Sign Date/Time: 07/05/2019 5:50 PM | + + + +---------+ + + | Performing | Address | City/State/Zipcode | Phone Number | | Organization | | | | + +---------+ + + | [facility] | | | | + +---------+ + + POC Glucose (07/05/2019 4:54 PM PST) + + + + + + | Component | Value | Ref Range | Performed | Pathologist | | | | | At | Signature | + + + + + + | Glucose, | 102 (H)Comment: Testing | 65 - 99 mg/dL | [facility] | | | POC | performed at [facility];[address] | | LABORATORY | | | | [address];[place] | | | | | | [address] | | | | + + + + + + + + | Specimen | + + | | + + + + + + + | Performing | Address | City/State/Zipcode | Phone Number | | Organization | | | | + + + + + | [facility] | [address] | [place] [address] | [phone] | + + + + + Surgical Pathology Exam (07/05/2019 4:22 PM PST) + + | Specimen | + + | Tissue - Bone and | | joint sample | | (specimen) | + + + + + | Narrative | Performed At | + + + | SPECIMEN(S): A | [facility] | | 2ND-5TH LEFT METATARSAL HEAD SPECIMEN SOURCE:A. 2ND-5TH LEFT | [facility] | | METATARSAL HEAD CLINICAL HISTORY:I73.9 (peripheral artery disease), | | | E11.9 (diabetes mellitus type II, non-insulin dependent), F17.200 | | | (smoker) FINAL PATHOLOGIC DIAGNOSIS:Metatarsal, left, second through | | | fifth, amputation:- Skin and subcutaneous tissue with gangrenous | | | necrosis.- Focally necrotic bone, consistent with acute | | | osteomyelitis.- Surgical margins are viable. GP:emb:C2NR MICROSCOPIC | | | EXAMINATION:Histologic sections of all submitted blocks are examined | | | by light microscopy. These findings, together with the gross | | | examination, support the pathologic diagnosis. GROSS DESCRIPTION:The | | | specimen, labeled "LOIDA, second through fifth left metatarsal head," is | | | received in formalin and consists of a 9 x 5.5 x 3.5 cm portion of | | | vu wrinkled skin with four attached distal metatarsalbones. The | | | surgical margin is marked with blue ink. The skin opposite the | | | margin demonstrates a 5.2 x 2.1 cm ulceration exposing the middle two | | | metatarsal heads. The ulceration is located 1.7 cmfrom the closest | | | margin. The two middle metatarsal heads are pale red and focally | | | friable. Insurance Coder sections are submitted as follows:(A1) | | | Metatarsal bone margins following decalcification(A2) Perpendicular | | | sections of ulceration and skin margin(A3) Middle two metatarsal heads | | | following decalcification(A4) Insurance Coder sections of skin | | | margin.SS (under the direct supervision of a pathologist) The Gross | | | Description was prepared using a voice recognition system. The | | | report was reviewed for accuracy; however, sound-alike word errors, | | | addition and/or deletions may occur. If there is anyquestion about | | | this report, please contact Client Services. PERFORMING LABORATORY:The | | | technical component was performed by [facility], [address] [place] [address] | | | [place] [address] (Heavy Lift Rigger: Amirah Garcia MD; CLIA# | | | [id number]). Professional interpretation was performed by[facility] | | | [facility], [address] | | | [place] [address] (Heavy Lift Rigger: Mustapha Woods M.D.; CLIA#: | | | [id number]). Diagnostician: Merlin Johnson MD. | | | MPHPathologistElectronically Signed 07/07/2019 | | | | | |PERFORMING LABORATORY: | | |The technical component was performed by [facility], [address] [place] [id number] (Heavy Lift Rigger: Amirah Garcia MD; CLIA# [id number]). Professional interpretation was performed by | | |[facility] [address] (Heavy Lift Rigger: Mustapha Woods M.D.; CLIA#: [id number]). | | | | | |Diagnostician: Merlin Johnson MD. MPH | | |Pathologist | | |Electronically Signed 07/07/2019 | | | | | | | | + + + + +---------+ + + | Performing | Address | City/State/Zipcode | Phone Number | | Organization | | | | + +---------+ + + | [facility] | | | | | [facility] | | | | + +---------+ + + MRSA NAAT (07/05/2019 1:36 PM PST) + + + + + + | Component | Value | Ref Range | Performed | Pathologist | | | | | At | Signature | + + + + + + | SOURCE: | SHAEES(NOSE) | | [facility] | | | | | | LABORATORY | | + + + + + + | Result | NEGATIVEComment: Testing | MRSNEG | [facility] | | | | performed at [facility];[address] | | LABORATORY | | | | [address];[place] | | | | | | [address] | | | | + + + + + + + + | Specimen | + + | Tissue - Both | | anterior nares (body | | structure) | + + + + + + + | Performing | Address | City/State/Zipcode | Phone Number | | Organization | | | | + + + + + | [facility] | [address] | [place] [address] | [phone] | + + + + + Basic Metabolic Panel (07/05/2019 12:44 PM PST) + + + + + + | Component | Value | Ref Range | Performed | Pathologist | | | | | At | Signature | + + + + + + | Na | 135 | 135 - 145 | [facility] | | | | | mmol/L | LABORATORY | | + + + + + + | K | 4.3 | 3.5 - 4.9 | [facility] | | | | | mmol/L | LABORATORY | | + + + + + + | Cl | 104 | 99 - 109 mmol/L | [facility] | | | | | | LABORATORY | | + + + + + + | CO2 | 27 | 23 - 32 mmol/L | [facility] | | | | | | LABORATORY | | + + + + + + | Anion Gap | 8 | 5 - 20 mmol/L | [facility] | | | | | | LABORATORY | | + + + + + + | Glucose | 108 (H) | 65 - 99 mg/dL | [facility] | | | | | | LABORATORY | | + + + + + + | BUN | 11 | 8 - 25 mg/dL | [facility] | | | | | | LABORATORY | | + + + + + + | Creatinine | 0.96 | 0.70 - 1.30 | [facility] | | | | | mg/dL | LABORATORY | | + + + + + + | BUN/Creatin | 11 | | [facility] | | | ine Ratio | | | LABORATORY | | + + + + + + | Calcium | 8.7 | 8.5 - 10.5 | [facility] | | | | | mg/dL | LABORATORY | | + + + + + + | Estimated | >60Comment: GFR <60: | >60 | [facility] | | | GFR | CHRONIC KIDNEY DISEASE, | mL/min/1.73m2 | LABORATORY | | | | IF FOUND OVER A 3 MONTH | | | | | | PERIOD.GFR <15: KIDNEY | | | | | | FAILURE.FOR | | | | | | AMERICANS, MULTIPLY THE | | | | | | CALCULATED GFR BY | | | | | | 1.210.This eGFR is | | | | | | calculated using the | | | | | | MDRD IDMS traceable | | | | | | equation.Testing | | | | | | performed at [facility] | | | | | | [facility];[place], [place] | | | | | | [address] | | | | + + + + + + + + | Specimen | + + | Blood | + + + + + + + | Performing | Address | City/State/Zipcode | Phone Number | | Organization | | | | + + + + + | [facility] | [address] | [place] [address] | [phone] | + + + + + CBC with Differential (07/05/2019 12:44 PM PST) + + + + + + | Component | Value | Ref Range | Performed | Pathologist | | | | | At | Signature | + + + + + + | WBC | 7.26 | 3.80 - 11.00 | [facility] | | | | | K/uL | LABORATORY | | + + + + + + | RBC | 4.29 | 4.20 - 5.70 | [facility] | | | | | M/uL | LABORATORY | | + + + + + + | Hemoglobin | 13.0 (L) | 13.2 - 17.0 | [facility] | | | | | g/dL | LABORATORY | | + + + + + + | Hematocrit | 40.1 | 39.0 - 50.0 % | [facility] | | | | | | LABORATORY | | + + + + + + | MCV | 93.5 | 80.0 - 100.0 fl | [facility] | | | | | | LABORATORY | | + + + + + + | MCH | 30.3 | 27.0 - 34.0 pg | [facility] | | | | | | LABORATORY | | + + + + + + | MCHC | 32.4 | 32.0 - 35.5 | [facility] | | | | | g/dL | LABORATORY | | + + + + + + | RDW-SD | 49.2 | 37 - 53 fl | [facility] | | | | | | LABORATORY | | + + + + + + | Platelet | 254 | 150 - 400 K/uL | [facility] | | | Count | | | LABORATORY | | + + + + + + | MPV | 12.0Comment: NO NORMAL | fl | [facility] | | | | RANGE ESTABLISHED | | LABORATORY | | + + + + + + | Diff Type | AUTOMATED | | [facility] | | | | | | LABORATORY | | + + + + + + | % nRBC | 0.0 | 0 /100WBC | [facility] | | | | | | LABORATORY | | + + + + + + | % | 66.80 | % | [facility] | | | Neutrophils | | | LABORATORY | | + + + + + + | IMMATURE | 0.10 | % | [facility] | | | GRANULOCYTE | | | LABORATORY | | + + + + + + | % | 24.20 | % | [facility] | | | Lymphocytes | | | LABORATORY | | + + + + + + | Monocyte % | 7.40 | % | [facility] | | | | | | LABORATORY | | + + + + + + | Eosinophils | 0.70 | % | [facility] | | | % | | | LABORATORY | | + + + + + + | Basophils % | 0.80 | % | [facility] | | | | | | LABORATORY | | + + + + + + | Neutrophils | 4.84 | 1.90 - 7.40 | [facility] | | | , Absolute | | K/uL | LABORATORY | | + + + + + + | IMMATURE | 0.01Comment: NOTE NEW | 0.00 - 0.07 | [facility] | | | GRANS AB | REFERENCE RANGE | K/uL | LABORATORY | | + + + + + + | Absolute | 1.76 | 1.00 - 3.90 | [facility] | | | Lymphocytes | | K/uL | LABORATORY | | + + + + + + | Absolute | 0.54 | 0.00 - 0.80 | [facility] | | | Monocytes | | K/uL | LABORATORY | | + + + + + + | Eosinophils | 0.05 | 0.00 - 0.50 | [facility] | | | , Absolute | | K/uL | LABORATORY | | + + + + + + | Basophils, | 0.06Comment: Testing | 0.00 - 0.10 | [facility] | | | Absolute | performed at [facility];[address] | K/uL | LABORATORY | | | | [facility];[place], [place] | | | | | | [address] | | | | + + + + + + + + | Specimen | + + | Blood | + + + + + + + | Performing | Address | City/State/Zipcode | Phone Number | | Organization | | | | + + + + + | [facility] | [address] | [place] [address] | [phone] | + + + + + IR Angiogram Lower Extremity Left (07/04/2019 1:50 PM PST) + + | Specimen | + + | | + + + + --+ | Narrative | Performed At | + + --+ | [facility] | [facility] | | [facility] CenterService: Vascular SurgeryProcedure Note | | | NAME: Paul Bunn MR #: [id number]: 1945 DATE OF | | | PROCEDURE: 07/04/2019SURGEON: Madi Linares [facility] HEARTISTANT: None | | | PREOPERATIVE DIAGNOSIS:1. Left lower extremity critical limb ischemia | | | POSTOPERATIVE DIAGNOSIS: Same PROCEDURES:1. Ultrasound guided access | | | of left common femoral artery2. Left lower extremity angiogram3. | | | Balloon angioplasty of popliteal artery with 4 mm balloon4. Balloon | | | angioplasty of superficial femoral artery with 5 mm ballon5. Conscious | | | Sedation6. Closure of left common femoral access with minx closure | | | device ANESTHESIA: Conscious sedation Sedation Time: 68 min FT: 17.9 | | | min Contrast: 50 ml Heparin: 5000 units Fentanyl: 150 mcg Versed: 2 | | | mg Radiation Dose: 156 mGy ESTIMATED BLOOD LOSS: 30 ml | | | COMPLICATIONS: None CONDITION: Stable INDICATIONS: Mr. Bunn | | | is a 73-year-old gentleman with a past medical history significant for | | | PAD, CAD, hypertension, hyperlipidemia, history of right above-knee | | | amputation who presented to clinic with a nonhealing left TMA. | | | Patient had history of a left lower extremity intervention however | | | he was unsure of what was done. On a prior CT scan he was noted to | | | have kissing common iliac stents. Arterial duplex showed an BERT of | | | 0.3. On exam patient was noted to have a open wound of his left TMA | | | with fibrinous base. Doppler exam was notable for monophasic pedal | | | signals. Patient was indicated for further evaluation with left | | | lower extremity angiogram with possible intervention. I discussed | | | the risks, benefits, and alternatives to the procedure patient and his | | | family agreed to proceed. Consent was obtained. PROCEDURE IN | | | DETAIL: The patient was taken to the laboratory apparatus glass grinder and placed on the | | | table in the supine position. Patient's bilateral groins were | | | prepped and draped in usual sterile fashion. A timeout was held | | | verifying patient, procedure to be performed, and consent. Prior to | | | beginning the procedure the patient was given Versed, fentanyl for | | | sedation. The patient's left groin was infiltrated with local | | | anesthetic. I then accessed the left common femoral artery in | | | antegrade fashion using ultrasound guidance with a micropuncture | | | needle. A contrast injection was then performed via the | | | micropuncture sheath, Occlusion of the proximal superficial femoral | | | artery. Patient also appeared to have previous superficial femoral | | | artery stenting. A wire was able to pass and a 5 Luxembourger sheath was | | | placed. Using a Glidewire and catheter I was able to cross the | | | occluded superficial femoral artery. Contrast injection at the level | | | of the popliteal artery showed a patent popliteal artery with | | | three-vessel runoff in the lower extremity. I then advanced a [employer] | | | wire to the below-knee popliteal artery. I then introduced a 4 mm | | | angioplasty balloon and angioplastied the popliteal and superficial | | | femoral artery. The 4 mm balloon was exchanged then for a 5 mm | | | balloon and repeat angioplasty of the superficial femoral artery was | | | performed. The balloon was removed and repeat contrast injection | | | showed an excellent flow channel with good flow through the | | | superficial femoral artery and popliteal artery. Completion | | | angiography showed three-vessel runoff in the lower extremity. | | | Primary runoff to the foot is via the posterior tibial artery. The | | | catheter and wire was removed. The 5 Luxembourger sheath was removed and | | | the minx closure device was deployed. There was good hemostasis at | | | the completion of the case. The patient tolerated the case without | | | difficulty. The patient had a palpable posterior tibial and dorsalis | | | pedis pulse. Interpretation:1. History Of left superficial femoral | | | artery stents which were occluded.2. Recanalization of the left | | | superficial femoral artery. Satisfactory radiographic and | | | hemodynamic results with balloon angioplasty of popliteal, superficial | | | femoral arteries.3. Three-vessel runoff, Primary runoff to the foot | | | is via the posterior tibial artery4. Palpable pedal pulses at the | | | conclusion of the case TREATMENT DISPOSITION - [place]; On examination | | | of patient's left TMA noted to have exposed metatarsals. Discussed | | | importance of admission with Podiatric evaluation. Antibiotics | | | started. Madi Linares MD Vascular Surgery Dictation software, | | | eDabba, used which may contain error for similar sounding words even | | | after review. Personal communication requested for any clarification. | | | | | |ultrasound guidance with a micropuncture needle. A contrast injection was | | |then performed via the micropuncture sheath, Occlusion of the proximal | | |superficial femoral artery. Patient also appeared to have previous | | |superficial femoral artery stenting. A wire was able to pass and a 5 | | |Luxembourger sheath was placed. Using a Glidewire and catheter I was able to | | |cross the occluded superficial femoral artery. Contrast injection at the | | |level of the popliteal artery showed a patent popliteal artery with | | |three-vessel runoff in the lower extremity. I then advanced a [employer] wire | | |to the below-knee popliteal artery. I then introduced a 4 mm angioplasty | | |balloon and angioplastied the popliteal and superficial femoral artery. | | |The 4 mm balloon was exchanged then for a 5 mm balloon and repeat | | |angioplasty of the superficial femoral artery was performed. The balloon | | |was removed and repeat contrast injection showed an excellent flow channel | | |with good flow through the superficial femoral artery and popliteal | | |artery. Completion angiography showed three-vessel runoff in the lower | | |extremity. Primary runoff to the foot is via the posterior tibial artery. | | | The catheter and wire was removed. The 5 Luxembourger sheath was removed and | | |the minx closure device was deployed. There was good hemostasis at the | | |completion of the case. The patient tolerated the case without | | |difficulty. The patient had a palpable posterior tibial and dorsalis | | |pedis pulse. | | | | | |Interpretation: | | |1. History Of left superficial femoral artery stents which were occluded. | | |2. Recanalization of the left superficial femoral artery. Satisfactory | | |radiographic and hemodynamic results with balloon angioplasty of | | |popliteal, superficial femoral arteries. | | |3. Three-vessel runoff, Primary runoff to the foot is via the posterior | | |tibial artery | | |4. Palpable pedal pulses at the conclusion of the case | | | | | | | | |TREATMENT DISPOSITION - [place]; On examination of patient's left TMA noted | | |to have exposed metatarsals. Discussed importance of admission with | | |Podiatric evaluation. Antibiotics started. | | | | | |Madi Linares MD | | |Vascular Surgery | | | | | |Dictation software, eDabba, used which may contain error for similar | | |sounding words even after review. Personal communication requested for any | | |clarification. | | | | | | | | | | | | | | | | | + + --+ + +---------+ + + | Performing | Address | City/State/Zipcode | Phone Number | | Organization | | | | + +---------+ + + | [facility] | | | | + +---------+ + + POC Glucose (07/04/2019 9:39 AM PST) + + + + + + | Component | Value | Ref Range | Performed | Pathologist | | | | | At | Signature | + + + + + + | Glucose, | 126 (H)Comment: Testing | 65 - 99 mg/dL | [facility] | | | POC | performed at [facility];[address] | | LABORATORY | | | | [address];[place], [place] | | | | | | [address] | | | | + + + + + + + + | Specimen | + + | | + + + + + + + | Performing | Address | City/State/Zipcode | Phone Number | | Organization | | | | + + + + + | [facility] | [address] | [place] [address] | [phone] | + + + + + CBC no Differential (07/04/2019 9:15 AM PST) + + + + + + | Component | Value | Ref Range | Performed | Pathologist | | | | | At | Signature | + + + + + + | WBC | 7.76 | 3.80 - 11.00 | [facility] | | | | | K/uL | LABORATORY | | + + + + + + | RBC | 4.72 | 4.20 - 5.70 | [facility] | | | | | M/uL | LABORATORY | | + + + + + + | Hemoglobin | 14.7 | 13.2 - 17.0 | [facility] | | | | | g/dL | LABORATORY | | + + + + + + | Hematocrit | 43.2 | 39.0 - 50.0 % | [facility] | | | | | | LABORATORY | | + + + + + + | MCV | 91.4 | 80.0 - 100.0 fl | [facility] | | | | | | LABORATORY | | + + + + + + | MCH | 31.1 | 27.0 - 34.0 pg | [facility] | | | | | | LABORATORY | | + + + + + + | MCHC | 34.0 | 32.0 - 35.5 | [facility] | | | | | g/dL | LABORATORY | | + + + + + + | RDW-SD | 48.1 | 37 - 53 fl | [facility] | | | | | | LABORATORY | | + + + + + + | Platelet | 275 | 150 - 400 K/uL | [facility] | | | Count | | | LABORATORY | | + + + + + + | MPV | 10.1Comment: Testing | fl | [facility] | | | | performed at [facility];[address] | | LABORATORY | | | | [address];[place], [place] | | | | | | [address] | | | | + + + + + + + + | Specimen | + + | Blood | + + + + + + + | Performing | Address | City/State/Zipcode | Phone Number | | Organization | | | | + + + + + | [facility] | [address] | [place] [address] | [phone] | + + + + + Basic Metabolic Panel (07/04/2019 9:15 AM PST) + + + + + + | Component | Value | Ref Range | Performed | Pathologist | | | | | At | Signature | + + + + + + | Na | 134 (L) | 135 - 145 | [facility] | | | | | mmol/L | LABORATORY | | + + + + + + | K | 5.4 (H)Comment: MODERATE | 3.5 - 4.9 | [facility] | | | | HEMOLYSIS | mmol/L | LABORATORY | | + + + + + + | Cl | 103 | 99 - 109 mmol/L | [facility] | | | | | | LABORATORY | | + + + + + + | CO2 | 27 | 23 - 32 mmol/L | [facility] | | | | | | LABORATORY | | + + + + + + | Anion Gap | 9 | 5 - 20 mmol/L | [facility] | | | | | | LABORATORY | | + + + + + + | Glucose | 129 (H) | 65 - 99 mg/dL | [facility] | | | | | | LABORATORY | | + + + + + + | BUN | 9Comment: MODERATE | 8 - 25 mg/dL | [facility] | | | | HEMOLYSIS | | LABORATORY | | + + + + + + | Creatinine | 1.03 | 0.70 - 1.30 | [facility] | | | | | mg/dL | LABORATORY | | + + + + + + | BUN/Creatin | 9 | | [facility] | | | ine Ratio | | | LABORATORY | | + + + + + + | Calcium | 8.8 | 8.5 - 10.5 | [facility] | | | | | mg/dL | LABORATORY | | + + + + + + | Estimated | >60Comment: GFR <60: | >60 | [facility] | | | GFR | CHRONIC KIDNEY DISEASE, | mL/min/1.73m2 | LABORATORY | | | | IF FOUND OVER A 3 MONTH | | | | | | PERIOD.GFR <15: KIDNEY | | | | | | FAILURE.FOR | | | | | | AMERICANS, MULTIPLY THE | | | | | | CALCULATED GFR BY | | | | | | 1.210.This eGFR is | | | | | | calculated using the | | | | | | MDRD IDOH traceable | | | | | | equation.Testing | | | | | | performed at [facility];[address] | | | | | | [facility];[place], [place] | | | | | | [address] | | | | + + + + + + + + | Specimen | + + | Blood | + + + + + + + | Performing | Address | City/State/Zipcode | Phone Number | | Organization | | | | + + + + + | [facility] | [address] | [place] [address] | [phone] | + + + + + documented in this encounter Visit Diagnoses + + | Diagnosis | + + | PAD (peripheral artery disease) (HCC) Unspecified disorders of arteries and | | arterioles | + + | Diabetes mellitus type II, non insulin dependent (HCC) Type II or unspecified type | | diabetes mellitus without mention of complication, not stated as uncontrolled | + + | Smoker Tobacco use disorder | + + documented in this encounter Admitting Diagnoses + + | Diagnosis | + + | Diabetes mellitus type II, non insulin dependent (HCC) Type II or unspecified type | | diabetes mellitus without mention of complication, not stated as uncontrolled | + + | Smoker Tobacco use disorder | + + | PAD (peripheral artery disease) (HCC) Unspecified disorders of arteries and | | arterioles | + + documented in this encounter Administered Medications + +--------+ +-------+------+------+ | Medication Order | MAR | Action | Dose | Rate | Site | | | Action | Date | | | | + +--------+ +-------+------+------+ | aspirin EC tablet 81 mg 81 mg, | Given | 07/07/19 | 81 mg | | | | Oral, DAILY, First dose on Wed | | 20 8:08 | | | | | 07/04/19 at 2000 | | AM PST | | | | + +--------+ +-------+------+------+ +-------+ +-------+---+---+ | Given | 07/06/19 | 81 mg | | | | | 20 8:57 | | | | | | AM PST | | | | +-------+ +-------+---+---+ | Given | 07/05/19 | 81 mg | | | | | 20 8:00 | | | | | | AM PST | | | | +-------+ +-------+---+---+ +---+---+ | | | +---+---+ + +-------+ +-------+---+---+ | atorvaSTATin (LIPITOR) tablet | Given | 07/06/19 | 10 mg | | | | 10 mg 10 mg, Oral, NIGHTLY, | | 20 8:38 | | | | | First dose on Wed07/04/19 at 2100 | | PM PST | | | | + +-------+ +-------+---+---+ +-------+ +-------+---+---+ | Given | 02/12/20 | 10 mg | | | | | 20 8:09 | | | | | | PM PST | | | | +-------+ +-------+---+---+ | Given | 07/04/19 | 10 mg | | | | | 20 9:32 | | | | | | PM PST | | | | +-------+ +-------+---+---+ +---+---+ | | | +---+---+ + + + +---+---+---+ | balanced electrolytes in water | Continue | 07/05/19 | | | | | (PLASMALYTE-148/NORMOSOL-R) | d by | 20 3:53 | | | | | infusion at 30 mL/hr, | Anesthes | PM PST | | | | | Intravenous, CONTINUOUS, Starting | ia | | | | | | 07/05/19 at 1415, Pre-op | | | | | | + + + +---+---+---+ +---------+ +---+ +---+ | New Bag | 07/05/19 | | 30 mL/hr | | | | 20 3:26 | | | | | | PM PST | | | | +---------+ +---+ +---+ +---+---+ | | | +---+---+ + +-------+ +--------+---+---+ | bupivacaine (PF) (MARCAINE) | Given | 07/05/19 | 20 mLs | | | | 0.5% injection PRN, Starting Wed | | 20 4:14 | | | | | 07/05/19 at 1614, Intra-op | | PM PST | | | | + +-------+ +--------+---+---+ +---+---+ | | | +---+---+ + +---------+ +-----+-------+---+ | ceFAZolin in dextrose (ANCEF, | New Bag | 07/06/19 | 1 g | 100 | | | KEFZOL) IVPB 1 g 1 g, | | 20 10:20 | | mL/hr | | | Intravenous, Administer over 30 | | PM PST | | | | | Minutes, EVERY 8 HOURS (3 times | | | | | | | per day), First dose on Wed | | | | | | | 07/05/19 at 1400, Keep in | | | | | | | refrigerator., Indications: SKIN | | | | | | | AND SOFT TISSUE ABSCESS | | | | | | + +---------+ +-----+-------+---+ +---------+ +-----+-------+---+ | New Bag | 07/06/19 | 1 g | 100 | | | | 20 2:44 | | mL/hr | | | | PM PST | | | | +---------+ +-----+-------+---+ | New Bag | 07/06/19 | 1 g | 100 | | | | 20 5:11 | | mL/hr | | | | AM PST | | | | +---------+ +-----+-------+---+ +---+---+ | | | +---+---+ + +-------+ +-------+---+---+ | clopidogrel (PLAVIX) tablet 75 | Given | 07/07/19 | 75 mg | | | | mg 75 mg, Oral, DAILY, First | | 20 8:07 | | | | | dose on 07/05/19 at 0900 | | AM PST | | | | + +-------+ +-------+---+---+ +-------+ +-------+---+---+ | Given | 07/06/19 | 75 mg | | | | | 20 8:57 | | | | | | AM PST | | | | +-------+ +-------+---+---+ | Given | 07/05/19 | 75 mg | | | | | 20 8:01 | | | | | | AM PST | | | | +-------+ +-------+---+---+ +---+---+ | | | +---+---+ + +-------+ +-------+---+---+ | cyclobenzaprine (FLEXERIL) | Given | 07/04/19 | 10 mg | | | | tablet 10 mg 10 mg, Oral, | | 20 7:43 | | | | | NIGHTLY PRN, Muscle spasms, | | PM PST | | | | | Starting 07/04/19 at 1854 | | | | | | + +-------+ +-------+---+---+ + +---+ | | | + +---+ | dextrose 10% (D10W) infusion | | | at 50 mL/hr, Intravenous, | | | CONTINUOUS PRN, hypoglycemia, | | | Starting 2/12/20 at 1332, | | | Start infusion if unable [...] | | | Low Blood Sugar, Starting Wed | | | 07/05/19 at 1332, For blood | | | glucose 50-69 mg/dl - give 12.5 g | | | For blood glucose less than 50 | | | mg/dl - give 25 g, | | + +---+ | | | + +---+ | diphenhydrAMINE (BENADRYL) 12.5 | | | mg/5 mL liquid 25 mg 25 mg, | | | Oral, EVERY 4 HOURS PRN, Itching, | | | Starting 07/05/19 at 1800, | | | Oral route is preferred., | | | Post-op/Phase II | | + +---+ | | | + +---+ | diphenhydrAMINE (BENADRYL) | | | capsule 25 mg 25 mg, Oral, EVERY | | | 4 HOURS PRN, Itching, Starting | | | Wed07/05/19 at 1800, Oral route | | | is preferred., Post-op/Phase II | | + +---+ | | | + +---+ | diphenhydrAMINE (BENADRYL) | | | injection 12.5 mg 12.5 mg, | | | Intravenous, EVERY 4 HOURS PRN, | | | Itching, Starting Wed07/05/19 at | | | 1800, Oral route is preferred., | | | Post-op/Phase II | | + +---+ | | | + +---+ + +-------+ +--------+---+---+ | docusate sodium (COLACE) | Given | 07/06/19 | 200 mg | | | | capsule 200 mg 200 mg, Oral, 8:57 | | | | | TIMES DAILY, First dose on Wed | | AM PST | | | | | 07/04/19 at 2100 | | | | | | + +-------+ +--------+---+---+ +-------+ +--------+---+---+ | Given | 07/05/19 | 200 mg | | | | | 20 8:09 | | | | | | PM PST | | | | +-------+ +--------+---+---+ | Given | 07/05/19 | 200 mg | | | | | 20 8:00 | | | | | | AM PST | | | | +-------+ +--------+---+---+ +---+---+ | | | +---+---+ + +-------+ +--------+---+---+ | gabapentin (NEURONTIN) capsule | Given | 07/07/19 | 600 mg | | | | 600 mg 600 mg, Oral, EVERY 4 | | 20 12:34 | | | | | HOURS (6 times per day), First | | PM PST | | | | | dose on Wed07/04/19 at 2000 | | | | | | + +-------+ +--------+---+---+ +-------+ +--------+---+---+ | Given | 07/07/19 | 600 mg | | | | | 20 8:08 | | | | | | AM PST | | | | +-------+ +--------+---+---+ | Given | 07/07/19 | 600 mg | | | | | 20 3:34 | | | | | | AM PST | | | | +-------+ +--------+---+---+ +---+---+ | | | +---+---+ + +-------+ +--------+---+ + | heparin 5,000 units/mL | Given | 07/06/19 | 5,000 | | Abdomen- | | injection 5,000 Units 5,000 | | 20 5:49 | Units | | LLQ | | Units, Subcutaneous, EVERY 8 | | PM PST | | | | | HOURS (3 times per day), First | | | | | | | dose on Wed07/06/19 at 0900 | | | | | | + +-------+ +--------+---+ + +-------+ +--------+---+ + | Given | 07/06/19 | 5,000 | | Arm-Left | | | 20 10:29 | Units | | Upper | | | AM PST | | | | +-------+ +--------+---+ + +---+---+ | | | +---+---+ + +-------+ +-------+---+---+ | hydrALAZINE (APRESOLINE) | Given | 07/04/19 | 10 mg | | | | injection 10 mg 10 mg, | | 20 4:26 | | | | | Intravenous, EVERY 4 HOURS PRN, | | PM PST | | | | | SBP >180, Starting Tu07/04/19 at | | | | | | | 1618 | | | | | | + +-------+ +-------+---+---+ +---+---+ | | | +---+---+ + +-------+ +---------+---+---+ | HYDROmorphone (DILAUDID) | Given | 07/05/19 | 0.25 mg | | | | injection 0.25-1 mg 0.25-1 mg, | | 20 1:55 | | | | | Intravenous, EVERY 1 HOUR PRN, | | PM PST | | | | | Pain, Starting 07/05/19 at | | | | | | | 1259 | | | | | | + +-------+ +---------+---+---+ + +---+ | | | + +---+ | insulin lispro (humaLOG) | | | injection (vial) 0-6 Units 0-6 | | | Units, Subcutaneous, 4 TIMES | | | DAILY WITH MEALS & NIGHTLY, First | | | dose on Wed07/05/19 at 1700, | | | CORRECTION SCALE: Blood Glucose | | | (BG) < 150: None BG | | | 150-200: DAY: 1 units. NIGHT: 0 | | | units BG 201-250: DAY: 2 | | | units. NIGHT: 1 units BG | | | 251-300: DAY: 3 units. NIGHT: 2 | | | units BG 301-350: DAY: 4 units. | | | NIGHT: 3 units BG 351-400: | | | DAY: 5 units. NIGHT: 4 units | | | BG > 400 : DAY: 6 units. | | | NIGHT: 5 units | | | AND CALL PROVIDER Use DAY | | | DOSE for doses scheduled: | | | AC, NPO, Daytime 0149-9015 Use | | | NIGHT DOSE for doses scheduled: | | | HS, 3AM, Nighttime 2020-0010 | | | If the BG is not checked before | | | the patient starts eating, do not | | | give correction insulin. If HS | | | insulin given, check blood | | | glucose at 3AM. Only for use with | | | U-100 insulin syringe., | | + +---+ | | | + +---+ + +-------+ +-------+---+---+ | lisinopril (PRINIVIL, ZESTRIL) | Given | 07/07/19 | 20 mg | | | | tablet 20 mg 20 mg, Oral, DAILY, | | 20 8:08 | | | | | First dose on Wed07/04/19 at | | AM PST | | | | | 2000 | | | | | | + +-------+ +-------+---+---+ +-------+ +-------+---+---+ | Given | 07/06/19 | 20 mg | | | | | 20 8:56 | | | | | | AM PST | | | | +-------+ +-------+---+---+ | Given | 07/05/19 | 20 mg | | | | | 20 8:06 | | | | | | AM PST | | | | +-------+ +-------+---+---+ +---+---+ | | | +---+---+ + +-------+ +-------+---+---+ | metoprolol succinate | Given | 07/07/19 | 50 mg | | | | (TOPROL-XL) ER tablet 50 mg 50 | | 20 8:08 | | | | | mg, Oral, DAILY, First dose on | | AM PST | | | | | 07/04/19 at 1700, Tablet may | | | | | | | be cut where scored but do not | | | | | | | crush., | | | | | | + +-------+ +-------+---+---+ +-------+ +-------+---+---+ | Given | 07/06/19 | 50 mg | | | | | 20 12:37 | | | | | | PM PST | | | | +-------+ +-------+---+---+ | Given | 07/05/19 | 50 mg | | | | | 20 8:00 | | | | | | AM PST | | | | +-------+ +-------+---+---+ +---+---+ | | | +---+---+ + +-------+ +--------+---+---+ | naproxen (NAPROSYN) tablet 250 | Given | 07/05/19 | 250 mg | | | | mg 250 mg, Oral, 3 TIMES DAILY | | 20 8:06 | | | | | PRN, Pain, Starting Wed07/04/19 | | AM PST | | | | | at 1855, Give with food., | | | | | | + +-------+ +--------+---+---+ +---+---+ | | | +---+---+ + +---------+ +---------+---+ + | nicotine (NICODERM) 21 mg/24 hr | Patch | 07/06/19 | 1 patch | | Arm-Left | | 1 patch 1 patch, Transdermal, | Applied | 20 8:38 | | | Upper | | DAILY, First dose on Wed07/04/19 | | PM PST | | | | | at 2000 | | | | | | + +---------+ +---------+---+ + + + +---------+---+ + | Patch Applied | 07/05/19 | 1 patch | | Arm-Left | | | 20 8:11 | | | Upper | | | PM PST | | | | + + +---------+---+ + | Patch Applied | 07/04/19 | 1 patch | | Arm-Left | | | 20 7:44 | | | Upper | | | PM PST | | | | + + +---------+---+ + +---+---+ | | | +---+---+ + +-------+ +------+---+---+ | nicotine (NICORETTE) gum 2 mg | Given | 07/06/19 | 2 mg | | | | 2 mg, Buccal, EVERY 1 HOUR PRN, | | 20 9:07 | | | | | Nicotine Craving, Starting Wed | | AM PST | | | | | 07/05/19 at 1200 | | | | | | + +-------+ +------+---+---+ +-------+ +------+---+---+ | Given | 07/05/19 | 2 mg | | | | | 20 1:29 | | | | | | PM PST | | | | +-------+ +------+---+---+ +---+---+ | | | +---+---+ + +-------+ +-------+---+---+ | oxyCODONE (ROXICODONE) tablet | Given | 07/07/19 | 10 mg | | | | 5-15 mg 5-15 mg, Oral, EVERY 4 | | 20 12:34 | | | | | HOURS PRN, Pain, Starting Wed | | PM PST | | | | | 07/05/19 at 1259 | | | | | | + +-------+ +-------+---+---+ +-------+ +-------+---+---+ | Given | 07/07/19 | 10 mg | | | | | 20 10:49 | | | | | | AM PST | | | | +-------+ +-------+---+---+ | Given | 07/07/19 | 10 mg | | | | | 20 5:58 | | | | | | AM PST | | | | +-------+ +-------+---+---+ +---+---+ | | | +---+---+ + +-------+ +--------+---+---+ | tamsulosin (FLOMAX) capsule 0.8 | Given | 07/07/19 | 0.8 mg | | | | mg 0.8 mg, Oral, DAILY, First | | 20 8:14 | | | | | dose on Wed07/04/19 at 2000, Do | | AM PST | | | | | not crush or chew capsule. If | | | | | | | unable to swallow, may open | | | | | | | capsule and sprinkle over acidic | | | | | | | soft food (applesauce, yogurt) or | | | | | | | in a small quantity of acidic | | | | | | | fruit juice (orange, grape). | | | | | | | Administer immediately (do not | | | | | | | allow granules to dissolve). Do | | | | | | | not administer via tube routes., | | | | | | + +-------+ +--------+---+---+ +-------+ +--------+---+---+ | Given | 07/06/19 | 0.8 mg | | | | | 20 8:57 | | | | | | AM PST | | | | +-------+ +--------+---+---+ | Given | 07/05/19 | 0.8 mg | | | | | 20 8:00 | | | | | | AM PST | | | | +-------+ +--------+---+---+ +---+---+ | | | +---+---+ + +-------+ +--------+---+---+ | traZODone (DESYREL) tablet 150 | Given | 07/06/19 | 150 mg | | | | mg 150 mg, Oral, NIGHTLY, First | | 20 8:38 | | | | | dose on Wed07/04/19 at 2100 | | PM PST | | | | + +-------+ +--------+---+---+ +-------+ +--------+---+---+ | Given | 07/05/19 | 150 mg | | | | | 20 8:09 | | | | | | PM PST | | | | +-------+ +--------+---+---+ | Given | 07/04/19 | 150 mg | | | | | 20 9:32 | | | | | | PM PST | | | | +-------+ +--------+---+---+ +---+---+ | | | +---+---+ documented in this encounter
--- OUTSIDE RECORDS SUMMARY | ~2019-09-14 | XMS | Encounter Summary ---
Demographics + + + | Address | [address] | | | [place] [address] | + + + | Home Phone | | + + + | Preferred Language | Unknown | + + + | Marital Status | Single | + + + | Gnosticist Affiliation | Unknown | + + + | Race | Unknown | + + + | Ethnic Group | Unknown | + + + Author + + + | Author | [facility] | | | and [facility] | + + + | Organization | [facility] | | [...] | | | | | [place] [address] | | + + + + + Care Team Providers + +------+ + | [facility] Utility Locator Name | Role | Phone | + +------+ + | Rebecca Millard NP | PCP | | + +------+ + Reason for Visit +--------+ + | Reason | Comments | +--------+ + | Other | | +--------+ + Encounter Details +--------+ + + + + | Date | Type | Department | Care Team | Description | +--------+ + + + + | 07/14/ | Telephone | [facility] | Yusuf Larios, | Other | | 2012 | | ORTHOPEDIC SURGERY | PA-C [address] | | | | | [address] [facility] | [place] [address] [place] | | | | | [place], [place] | [place] [address] | | | | | [address] | [phone] | | | | | [phone] | | | +--------+ + + + + Social History + +-------+ +--------+------+ | Tobacco Use | Types | Packs/Day | Years | Date | | | | | Used | | + +-------+ +--------+------+ | Never Assessed | | | | | + +-------+ +--------+------+ + + + | Sex Assigned at [...]
--- OUTSIDE RECORDS SUMMARY | ~2019-09-14 | XMS | Encounter Summary ---
Demographics + + + | Address | [address] | | | [place] [address] | + + + | Home Phone | | + + + | Preferred Language | Unknown | + + + | Marital Status | Single | + + + | Hinduism Affiliation | Unknown | + + + | Race | Unknown | + + + | Ethnic Group | Unknown | + + + Author + + + | Author | [facility] | | | [facility] | + + + | Organization | [facility] | | | [...] | | | | | [place] [address] | | + + + + + Care Team Providers + +------+ + | Care Information Systems Project Manager Name | Role | Phone | + +------+ + PCP | Unavailable | + +------+ + Encounter Details +--------+ + + + + | Date | Type | Department | Care Team | Description | +--------+ + + + + | 09/04/ | Hospital | [facility] | Conversion | | | 2002 | Encounter | CONVERSION DEP [phone] | Transaction, | | | | | [place] | Provider Unknown | | | | | [place] | | | | | | [address] | (Fax) | | | | | [phone] | | | +--------+ + + + [...]
--- OUTSIDE RECORDS SUMMARY | ~2019-09-14 | XMS | Encounter Summary ---
Demographics + + + | Address | [address] | | | [place] [address] | + + + | Home Phone | | + + + | Preferred Language | Unknown | + + + | Marital Status | Single | + + + | Christian Affiliation | Unknown | + + + | Race | Unknown | + + + | Ethnic Group | Unknown | + + + Author + + + | Author | [facility] | | | [facility] | + + + | Organization | [facility] | | | [...] | | | | | [place] [address] | | + + + + + Care Team Providers + +------+ + | Care Regional Medical Director Name | Role | Phone | [...] Description | +--------+---------+ + + + | 11/30/ | Surgery | [facility] | Bipin Mcconnell, | lap panad, lap nila, | | 2013 | | MED CTR OR INTRA OP | MD [address], | lysis of adhesions, | | | | [address] | [address] [place], | repair small bowel | | | | [place], [place] | [place] [address] | | | | | [address] | [phone] | | | | | [phone] | | | +--------+---------+ + + + [...] Bipin Mcconnell MD - 01/09/2014 11:53 AM PDT [address] [address] DISCHARGE SUMMARY BIPIN MCCONNELL MD Patient: VALENTINA MUELLER Admitting: DC DANIELLE MR #: [id number] LOC: PT TYPE: Adm Date: 11/28/2013 : [...] Transcribed on 01/09/2014 12:14:26 by laurie job# [id number] Confirmation #: [id number] signed by Bipin Mcconnell MD at 01/09/2014 [...] Rendon MD - 12/02/2013 2:47 PM PDT [facility] Hospitalist Progress Note Valentina Mueller is [...] as outlined above. Dc Danielle 12/02/2013 14:47 [facility] Portions of this chart may have been created with [employer] voice recognition software. Occasi onal wrong-word or sound-alike substitutions may have occurred due to the inherent leigh itations of voice recognition software. Please read the chart carefully and recognize, using context, where these substitutions have occurred ilder Huang MD - 12/02/2013 12:54 PM PDTNo BM yet. Tolerating clear liquids. Good pain control Afebrile. VS stable Abdomen-protruberant, soft, minimal tenderness. Plan: Dulcolax suppository. Advance diet.Electronically signed by Wilder Huang MD at 0 12/02/2013 12:55 PM PDTWilder Huang MD - 12/01/2013 6:[address] Mcconnell Comfortable. Wants NG out. Denies flatus or stool. Voiding ok. Says his abdominal pain is much better than preop. Afeb. VS stable. I/O ok Lungs clear Heart regular Abd. Mildly distended, soft, a few BS IMP: Postop ileus Plan: D/C NG tube. MOM. P M MELLISAParDc wong MD - 12/01/2013 3:55 PM PDT [facility] PM[facility] Hospitalist Progress Note Valentina Mueller is [...] mg/dL Final 11/30/20132009 117 79-150 mg/dL Final POC GLUCOSE Date/Time [...] as outlined above. Dc Danielle 12/01/2013 15:55 [facility] Portions of this chart may have been created with [employer] voice recognition software. Occasi onal wrong-word or sound-alike substitutions may have occurred due to the inherent leigh itations of voice recognition software. Please read the chart carefully and recognize, using context, where these substitutions have occurred arker, Dc Lakhani MD - 0 11/30/2013 5:09 PM PDT [facility] Hospitalist Progress Note Valentina Mueller is [...] as outlined above. Dc Danielle 11/30/2013 17:09 [facility] Portions of this chart may have been created with [employer] voice recognition software. Occasi onal wrong-word or [...] OR for surgery per SAV hernandez. Dc Renodn MD - 11/29/2013 5:01 PM PDT [facility] Hospitalist Progress Note Valentina Mueller is [...] or may not recommend it and w gabby will rely on Dr. Mcconnell expertise relative [...] as outlined above. Dc Danielle 11/29/2013 17:01 [facility] Portions of this chart may have been created with [employer] voice recognition software. Occasi onal wrong-word or sound-alike substitutions may have occurred due to the inherent leigh itations of voice recognition software. Please read the chart carefully and recognize, using context, where these substitutions have occurred att Zamarripa RN - 11/29/2013 2:49 PM PDTPatient placed back on low intermittent suction on NG tube.Electro nically signed by Matt Zamarripa, RN at 11/29/2013 2:50 PM Jennifer Marte RN - 11/28/2013 7:15 PM [id number] Pt arrived from ER A/0x3 c/o abd [...] [address] | [place] | [phone] | | [facility] | | [address] | | | - LABORATORY | | | | + + + + + | [facility] | [address] | [place] | | | [facility] | | [address] | | | - LABORATORY | | | | + + + + + POC Glucose (12/03/2013 7:04 AM PDT) + +-------+ + + + | Component | Value | Ref Range | Performed | Pathologist | | | | | At | Signature | + +-------+ + + + | Glucose, | 128 | 79 - 150 mg/dL | [facility] [...] + | [facility] | [address] | [place], [place] | [phone] | | [facility] | | [address] | | | - LABORATORY | | | | + + + + + | [facility] | [address] | [place], [place] | | | [facility] | | [address], [facility] | | | - LABORATORY | | | | + + + + + POC Glucose (12/02/2013 9:12 PM PDT) + +-------+ + + + | Component | Value | Ref Range | Performed | Pathologist | | | | | At | Signature | + +-------+ + + + | Glucose, | 125 | 79 - 150 mg/dL | [facility] [...] [address] | [place] | [phone] | | [facility] | | [address] | | | - LABORATORY | | | | + + + + + | [facility] | [address] | [place] | | | [facility] | | [address], [facility] | | | - LABORATORY | [...] + | [facility] | [address] | [place] | [phone] | | [facility] | | [address] | | | - LABORATORY | | | | + + + + + | [facility] | [address] | [place], [place] | | | [facility] | | [address], [facility] | | | - LABORATORY | [...] + | [facility] | [address] | [place], [place] | [phone] | | [facility] | | [address] | | | - LABORATORY | | | | + + + + + | [facility] | [address] | [place] | | | [facility] | | [address], [facility] | | | - LABORATORY | [...] | | POC | | | [facility] | | | | | | [...] + | [facility] | [address] | [place] | [phone] | | [facility] | | [address] | | | - LABORATORY | | | | + + + + + | [facility] | [address] | [place] | | | [facility] | | [address] [place] [address] | | | - LABORATORY | | [...] (L) | 7 - 18 mg/dL | [facility] | | | | | | [facility] | | | | | | MEDICAL | | | | | | CENTER - | | | | | | LABORATORY | | + + + + + + | Creatinine | 0.64 | 0.60 - 1.30 | [facility] | | | | | mg/dL | [facility] | | | | | | MEDICAL | | | | | | CENTER - | | | | | | LABORATORY | | + + + + + + | eGFR if not | >60Comment: GLOMERULAR | >=60 | [facility] | | | | FILTRATION | mL/min/1.73m2 | [facility] | | | [place] | RATE,ESTIMATED | | MEDICAL | | | | mL/min/1.92g3Fqja than | | CENTER - | | [...] + | [facility] [facility] | [address] | [place], [place] | [phone] | | [facility] | | [address] | | | - LABORATORY | | | | + + + + + | [facility] | [address] | [place], [place] | | | [facility] | | [address], [facility] | | | - LABORATORY | [...] + | [facility] | [address] | [place] | [phone] | | [facility] | | [address] | | | - LABORATORY | | | | + + + + + | [facility] | [address] | [place] | | | [facility] | | [address] | | | - LABORATORY | | | | + + + + + POC Glucose (12/01/2013 8:48 PM PDT) + +-------+ + + + | Component | Value | Ref Range | Performed | Pathologist | | | | | At | Signature | + +-------+ + + + | Glucose, | 123 | 79 - 150 mg/dL | [facility] [...] + | [facility] [facility] | [address] | [place], [place] | [phone] | | [facility] | | [address] | | | - LABORATORY | | | | + + + + + | [facility] [facility] | [address] | [place], [place] | | | [facility] | | [address] | | | - LABORATORY | | | | + + + + + POC Glucose (12/01/2013 6:00 PM PDT) + +-------+ + + + | Component | Value | Ref Range | Performed | Pathologist | | | | | At | Signature | + +-------+ + + + | Glucose, | 134 | 79 - 150 mg/dL | [facility] [...] + | [facility] | [address] | [place] | [phone] | | [facility] | | [address] | | | - LABORATORY | | | | + + + + + | [facility] | [address] | [place] | | | [facility] | | [address], [facility] | | | - LABORATORY | | | | + + + + + POC Glucose (12/01/2013 12:03 PM PDT) + +-------+ + + + | Component | Value | Ref Range | Performed | Pathologist | | | | | At | Signature | + +-------+ + + + | Glucose, | 132 | 79 - 150 mg/dL | [facility] | | | POC | | | [facility] | | | | | [...] + | [facility] | [address] | [place] | [phone] | | [facility] | | [address] | | | - LABORATORY | | | | + + + + + | [facility] | [address] | [place], [place] | | | [facility] | | [address] | | | - LABORATORY | | | | + + + + + POC Glucose (12/01/2013 6:38 AM PDT) + +-------+ + + + | Component | Value | Ref Range | Performed | Pathologist | | | | | At | Signature | + +-------+ + + + | Glucose, | 99 | 79 - 150 mg/dL | [facility] [...] [address] | [place] | [phone] | | [facility] | | [address] | | | - LABORATORY | | | | + + + + + | [facility] | [address] | [place] | | | [facility] | | [address], [facility] | | | - LABORATORY | [...] | mL/min/1.73m2 | [facility] | | | [place] | RATE,ESTIMATED | | MEDICAL | | | | mL/min/1.58f7Qdty than | | CENTER - | | [...] | 8.7 | 8.3 - 10.5 | [facility] | | | | | mg/dL | [facility] | | | | | | MEDICAL | | | | | | CENTER - | | | | | | LABORATORY | | + + + + + + | Albumin | 2.3 (L) | 3.2 - 5.0 g/dL | [facility] | | | | | | [facility] | | | | | [...] + | [facility] | [address] | [place] | [phone] | | [facility] | | [address] | | | - LABORATORY | | | | + + + + + | [facility] | [address] | [place] | | | [facility] | | [address], [facility] | | | - LABORATORY | [...] [facility] | | | | | | [facility] | | | | | | MEDICAL | | | | | | CENTER - | | | | | | LABORATORY | | + + + + + + | RBC | 4.39 | 4.30 - 5.70 | [facility] | | | | | M/uL | [facility] | | | | | | MEDICAL [...] + | [facility] | [address] | [place] | [phone] | | [facility] | | [address] | | | - LABORATORY | | | | + + + + + | [facility] | [address] | [place] | | | [facility] | | [address] | | | - LABORATORY | | | | + + + + + POC Glucose (11/30/2013 8:10 PM PDT) + +-------+ + + + | Component | Value | Ref Range | Performed | Pathologist | | | | | At | Signature | + +-------+ + + + | Glucose, | 117 | 79 - 150 mg/dL | [facility] | | | POC | | | [facility] | | [...] + | [facility] | [address] | [place], [place] | [phone] | | [facility] | | [address] | | | - LABORATORY | | | | + + + + + | [facility] | [address] | [place], [place] | | | [facility] | | [address] | | | - LABORATORY | | [...] | + + + + + | [facility] | [address] | [place], [place] | [phone] | | [facility] | | [address] | | | - LABORATORY | | | | + + + + + | [facility] | [address] | [place], [place] | | | [facility] | | [address] | | | - LABORATORY | | [...] + | MISCELLANEOUS LAB | | | [phone] | + +---------+ + + | [facility] LAB | | | [phone] | + +---------+ + + POC Glucose (11/30/2013 7:11 AM PDT) + +--------+ + + + | Component | Value | Ref Range | Performed | Pathologist | | | | | At | Signature | + +--------+ + + + | Glucose, | 75 (L) | 79 - 150 mg/dL | [facility] [...] [address] | [place] | [phone] | | [facility] | | [address] | | | - LABORATORY | | | | + + + + + | [facility] | [address] | [place] | | | [facility] | | [address], [facility] | | | - LABORATORY | | | | + + + + + POC Glucose (11/29/2013 5:42 PM PDT) + +-------+ + + + | Component | Value | Ref Range | Performed | Pathologist | | | | | At | Signature | + +-------+ + + + | Glucose, | 92 | 79 - 150 mg/dL | [facility] [...] + | [facility] | [address] | [place], [place] | [phone] | | [facility] | | [address] | | | - LABORATORY | | | | + + + + + | [facility] | [address] | [place], [place] | | | [facility] | | [address], [facility] | | | - LABORATORY | [...] | Gordy, Rad Results In - 11/29/2013 2:22 PM PDT [...] + | MISCELLANEOUS LAB | | | [phone] | + +---------+ + + | [facility]ISCEL[facility] LAB | | | [phone] | + +---------+ + + POC Glucose [...] + | [facility] | [address] | [place] | [phone] | | [facility] | | [address] | | | - LABORATORY | | | | + + + + + | [facility] | [address] | [place], [place] | | | [facility] | | [address] | | | - LABORATORY | | [...] | | | | | | [facility] | | [...] | mL/min/1.73m2 | [facility] | | | [place] | RATE,ESTIMATED | | MEDICAL | | | | mL/min/1.53j3Cmtl than | | CENTER - | | [...] | | | | | mg/dL | [facility] | | | | | [...] + | [facility] | [address] | [place] | [phone] | | [facility] | | [address] | | | - LABORATORY | | | | + + + + + | [facility] | [address] | [place], [place] | | | [facility] | | [address] | | | - LABORATORY | | [...] | Lymphocytes | | K/uL | [facility] | | | | | | MEDICAL | | | | | | CENTER - | | | | | | LABORATORY | | + + + + + + | Absolute | 0.80 | 0.00 - 1.00 | [facility] | | | Monocytes | | K/uL | [facility] | | | | | | MEDICAL | | | | | | CENTER - | | | | | | LABORATORY | | + + + + + + | Absolute | 0.00 | 0.00 - 0.40 | [facility] | | | Eosinophils | | K/uL | [facility] | | | | | | MEDICAL | | | | | | CENTER - | | | | | | LABORATORY | | + + + + + + | Absolute | 0.10 | 0.00 - 0.10 | [facility] | | | Basophils | | K/uL | [facility] | [...] + | [facility] | [address] | [place], [place] | [phone] | | [facility] | | [address] | | | - LABORATORY | | | | + + + + + | [facility] | [address] | [place], [place] | | | [facility] | | [id number] [place] [address] | | | - LABORATORY | | [...] + | [facility] | [address] | [place] | [phone] | | [facility] | | [address] | | | - LABORATORY | | | | + + + + + | [facility] | [address] | [place], [place] | | | [facility] | | [address], [facility] | | | - LABORATORY | [...] or ileus. Dictated and Signed by: Osmin | | | MD Facundo Electronically signed: 11/29/2013 [...] + | MISCELLANEOUS LAB | | | [phone] | + +---------+ + + | [facility] | | | [phone] | + +---------+ + + US Abdomen [...] possible polyp. Dictated and Signed by: Osmin | | | MD Facundo Electronically signed: 11/29/2013 [...] + | MISCELLANEOUS LAB | | | [phone] | + +---------+ + + | [facility] | | | [phone] | + +---------+ + + CT Abdomen [...] were provided for interpretation on November | 2013 at 1440 hours. Resultswere finalized [...] + | MISCELLANEOUS LAB | | | [phone] | + +---------+ + + | [facility] | | | [phone] | + +---------+ + + Lipase (11/28/2013 1:29 PM PDT) + +-------+ + + + | Component | Value | Ref Range | Performed | Pathologist | | | | | At | Signature | + +-------+ + + + | Lipase | 17 | 0 - 60 U/L | [facility] | | | | | | [facility] | | | | | | MEDICAL [...] + | [facility] | [address] | [place] | [phone] | | [facility] | | [address] | | | - LABORATORY | | | | + + + + + | [facility] | [address] | [place] | | | [facility] | | [address], [facility] | | | - LABORATORY | [...] [facility] | | | | | | [facility] | | [...] not | >60Comment: GLOMERULAR | >=60 | [facility] | | | | FILTRATION | mL/min/1.73m2 | [facility] | | | [place] | RATE,ESTIMATED | | MEDICAL | | | | mL/min/1.15d6Mtuc than | | CENTER - | | [...] | 9.7 | 8.3 - 10.5 | [facility] | [...] 0.9 | 0.1 - 1.5 mg/dL | [facility] | | | Total | | | [facility] | | [...] + | [facility] | [address] | [place], [place] | [phone] | | [facility] | | [address] | | | - LABORATORY | | | | + + + + + | [facility] | [address] | [place], [place] | | | [facility] | | [address], [facility] | | | - LABORATORY | [...] | | | | | g/dL | [facility] | | | | [...] + | [facility] | [address] | [place] | [phone] | | [facility] | | [address] | | | - LABORATORY | | | | + + + + + | [facility] | [address] | [place], [place] | | | [facility] | | [address], [facility] | | | - LABORATORY | | | | + + + + + documented in this encounter Visit Diagnoses + + | Diagnosis | + + | Acute gangrenous cholecystitis Acute cholecystitis | + + | Iatrogenic enterotomy Accidental puncture or laceration during procedure, not | | elsewhere classified | + + | Abdominal adhesions Peritoneal adhesions (postoperative) (postinfection) | + + | Small bowel obstruction (HCC) Unspecified intestinal obstruction | + + | Appendicitis Appendicitis, unqualified | + + documented in this encounter Administered Medications + +--------+ +--------+------+------+ | Medication Order | MAR | Action | Dose | Rate | Site | | | Action | Date | | | | + +--------+ +--------+------+------+ | bupivacaine 0.5%-epinephrine | Given | 12/01/19 | 20 mLs | | | | 1:200,000 0.5-1:228697 % | | 14 9:47 | | | | | injection PRN, Starting Nelida | | AM PDT | | | | | 11/30/13 at 0947, Intra-op | | | | | | + +--------+ +--------+------+------+ +---+---+ | | | +---+---+ + +-------+ +--------+---+---+ | iothalamate (CONRAY) 60 % | Given | 12/01/19 | 20 mLs | | | | injection PRN, Starting Nelida | | 14 9:47 | | | | | 11/30/13 at 0947, Intra-op | | AM PDT | | | | + +-------+ +--------+---+---+ +---+---+ | | | +---+---+ documented in this encounter
--- OUTSIDE RECORDS SUMMARY | ~2019-09-14 | XMS | Encounter Summary ---
Demographics + + + | Address | [address] | | | [place] [address] | + + + | Home Phone | | + + + | Preferred Language | Unknown | + + + | Marital Status | Single | + + + | Voodoo Affiliation | Unknown | + + + | Race | Unknown | + + + | Ethnic Group | Unknown | + + + Author + + + | Author | [facility] | | [facility] | + + + | Organization | [facility] | | | [...] | | | | | [place] [address] | | + + + + + Care Team Providers + +------+ + | Care Upper Leather Cutter Name | Role | Phone | + +------+ + | Shi Miramontes | PCP | | + +------+ + Reason for Visit + + + | Reason | Comments | + + + | Foot Wound | | + + + | Cellulitis | | + + + Auth/Cert +--------+--------+ + + + + | Status | Reason | Specialty | Diagnoses / | Referred By | Referred To | | | | | Procedures | Contact | Contact | +--------+--------+ + + + + | | | | Diagnoses | | | | | | | Abscess of | | | | | | | second toe | | | | | | | of left foot | | | | | | | Cellulitis | | | | | | | of left | | | | | | | foot | | | | | | | Diabetic | | | | | | | foot | | | | | | | infection | | | | | | | (HCC) | | | +--------+--------+ + + + + Encounter Details +--------+---------+ + + + | Date | Type | Department | Care Team | Description | +--------+---------+ + + + | 02/17/ | Surgery | [facility] | Kaylyn Coreas, | AMPUTATION 2nd TOE | | 2019 | | [facility] | DPM [address] | LEFT | | | | [address] | [place] | | | | | [place] | [address] | | | | | [address] | [phone] | | | | | [phone] | | | +--------+---------+ + + + [...] + + + | Blood Pressure | 121/74 | 02/18/2019 8:08 AM | | | | | PDT | | + + + + + | Pulse | 73 | 02/18/2019 12:30 PM | | | | | PDT | | + + + + + | Temperature | 36 C (96.8 F) | 02/18/2019 8:08 AM | | | | | PDT | | + + + + + | Respiratory Rate | 18 | 02/18/2019 12:30 PM | | | | | PDT | | + + + + + | Oxygen Saturation | 97% | 02/18/2019 12:30 PM | Eating meal, denies | | | | PDT | SOB | + + + + + | Inhaled Oxygen | - | - | | | Concentration | | | | + + + + + | Weight | 70.4 kg (155 lb 3.3 | 02/16/2019 6:07 PM | | | | oz) | PDT | | + + + + + | Height | 175.3 cm (5' 9") | 02/16/2019 6:07 PM | | | | | PDT | | + + + + + | Body Mass Index | 22.92 | 02/16/2019 6:07 PM | | | | | PDT [...] documented as of this encounter Discharge Summaries Casi Hicks MD - 02/18/2019 1:42 PM PDTFormatting of this note might be different fro m the original. DISCHARGE SUMMARY Patient Name: Valentina Bunn : 1945 Date of Admission: 02/16/2019 Date of Discharge: 02/18/2019 Admitting Physician: Pretty Vazquez MD Discharging Physician: Casi Hicks MD Primary Care Provider: ANATOLY Rawls Discharge Diagnoses: 1. Diabetic Left 2nd toe ulcer/LLE cellulitis c/b acute OM in the setting of known severe P VD 2. Hyperkalemia 3. Hyponatremia from hypovolemia 4. HTN 5. DM2 c/b neuropathy/diabetic foot ulcers 6. Active smoker 7. GERD Consultants: Dr. Coreas Procedures: Amputation of Left 2ng toe. Procedure description pr Dr. Coreas: racquet incision was ma de around the base of the 2nd toe and extending up the dorsal metatarsal. The digit was disa rticulated at the metatarsal phalangeal joint. There is a small area of devitalized tissue t hat is superficial and dorsal to the metatarsal head. A portion of the exposed bone is submi tted to cultures. The area of devitalized tissue is sharply resected. The longus tendons were identified and resected proximally. The metatarsal head is with normal appearing cartilage and the soft ti ssue is with normal color and texture. The wound is washed with 3L of sterile saline. The remaining tissue is of satisfactory appe arance. Reason for Admission: Please refer to the H&P for full details. 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 Had been on keflex for past 6 days. Problem-Oriented Hospital Course: 1. Diabetic Left 2nd toe ulcer/LLE cellulitis c/b acute OM in the setting of known severe P VD - Wound culture - MSSA. BCx 2 no growth so far - he was started on ceftriaxone and vancomycin on admission - s/p amputation on 02/17. Dr. Coreas stated that she was able to debride and remove infec tj tissue and bone. She was okay with 14 days of PO antibiotic - Intra-op culture pending on discharge - discharged on 14 days course of doxycycline - outpatient follow up with Dr. Coreas 2. Hyperkalemia - resolved with IVF and holding lisinopril - lisinopril dose was decreased on discharge 3. Hyponatremia from hypovolemia - improving with IVF 4. HTN - c/w metoprolol and decreased dose of lisinopril 20mg to 10 mg daily 5. DM2 c/b neuropathy/diabetic foot ulcers - resumed back on metformin on discharge - A1C-6.3 - c/w gabapentin and trazodone 6. Active smoker - education on smoking cessation 7. GERD - c/w PPI Code Status: Full Code Disposition: Home Discharge Condition: stable Follow-up Information ANATOLY Rawls In 5 days. Specialty: Family Nurse Practitioner Contact information: [address] [facility] [address] Kaylyn Coreas DPM In 1 week. Specialty: Podiatry Contact information: [address] [facility] [address] Discharge Medications New Medications Details doxycycline 100 mg capsule Take 1 capsule by mouth 2 times daily for 14 days. aka: VIBRAMYCIN PROBIOTIC ACIDOPHILUS Caps Take 1 capsule by mouth 2 times daily. Changed Medications Details lisinopril 10 mg tablet Take 1 tablet by mouth Daily. What changed: medication strength how much to take aka: PRINIVIL, ZESTRIL Unchanged Medications Details ascorbic acid 500 mg tablet Take 500 mg by mouth Daily. aka: VITAMIN C aspirin 81 mg chewable tablet Take 81 mg by mouth Daily. Calcium 600 + D 600-400 MG-UNIT Tabs Generic drug: calcium-vitamin D Take 1,200 mg by mouth every evening. cholecalciferol 1000 units Tabs Take 2,000 Units by mouth Daily. aka: VITAMIN D-3 clopidogrel 75 mg tablet Take 75 mg by mouth Daily. aka: PLAVIX clotrimazole 1% external solution Apply topically 2 times daily. aka: LOTRIMIN cyanocobalamin 500 mcg tablet Take 1,000 mcg by mouth Daily. aka: VITAMIN B-12 docusate sodium 250 MG capsule Take 250 mg by mouth 2 times daily. aka: COLACE fish oil 1,000 mg capsule Take 1,000 mg by mouth Daily. gabapentin 300 mg capsule Take 600 mg by mouth 3 times daily. aka: NEURONTIN HYDROcodone-acetaminophen 7.5-325 mg per tablet Take 1 tablet by mouth every 6 hours as needed. aka: NORCO magnesium oxide 420 MG Tabs Take 840 mg by mouth Daily. aka: MAOX metFORMIN 1000 MG tablet Take 1,000 mg by mouth 2 times daily (with breakfast & dinner). aka: GLUCOPHAGE metoprolol succinate 50 mg 24 hr tablet Take 25 mg by mouth Daily. aka: TOPROL-XL MULTIPLE VITAMINS-MINERALS PO Take 1 tablet by mouth Daily. omeprazole 20 mg capsule Take 20 mg by mouth 2 times daily. aka: priLOSEC senna 8.6 mg tablet Take 1 tablet by mouth Daily. aka: SENOKOT simvastatin 20 mg tablet Take 20 mg by mouth nightly. aka: ZOCOR traZODone 100 mg tablet Take 150 mg by mouth nightly. aka: DESYREL Discontinued Medications sildenafil 50 MG tablet aka: VIAGRA Studies With Pending Results: Final Intra-op culture Greater than 30 minutes were spent on discharge and coordination of post-hospital care. Electronically signed by: Casi Hicks MD, 02/18/2019 13:[address] [facility] documented in this en counter Discharge Instructions Instructions Casi Hicks MD - 02/18/20191. Continue doxycycline 100 mg PO BID for 14 m ore days. 2. Continue wound care as instructed by Dr. Coreas. 3. Dressings to remain clean and dry 4. Okay to heel weight bear for transfers, etc 5. Lisinopril decreased from 20 mg daily to 10 mg daily. 6. Continue carb controlled diet and metformin as instructed. documented in this encounter Medications at Time [...] + + + +---------+ + + | doxycycline | Take 1 capsule by | 28 | 0 | 02/19/20 | | | (VIBRAMYCIN) 100 mg | mouth 2 times daily | capsule | | 19 | 9 | | capsule | for 14 days. | | | | | + + [...] +---------+ + + | lisinopril | Take 1 tablet by | | 0 | 02/19/20 | | | (PRINIVIL, ZESTRIL) | mouth Daily. | | | 19 | 9 | | 10 mg tablet | | | | | [...] documented as of this encounter Progress Notes Bre York, PharmD - 02/18/2019 6:16 AM PDT VANCOMYCIN PER PHARMACY PROTOCOL: AMS/Drug Name - Vancomycin Patient: Valentina Bunn [id number] Admit: 02/16/2019 12:15 RELEVANT ALLERGIES: N/A 73 yrs old male patient admitted on 02/16/2019 for DM foot ulcer. Patient is receiving vanc omycin starting on 02/16/2019 for DM foot. Patient has a past medical history of Arrhythmia, Arthritis, Carpal tunnel syndrome, Constipation, chronic, Dental caries, Depression, Diabet es mellitus (HCC), Diabetic neuropathy (HCC), Epidermal cyst of face, Ganglion cyst, GERD (g astroesophageal reflux disease), Hyperlipidemia, Hypertension, Hypomagnesemia, Impotence, In somnia, Neuropathy, Nicotine dependence, Osteoarthrosis involving multiple sites, Peripheral vascular disease (HCC), PTSD (post-traumatic stress disorder), PTSD (post-traumatic stress disorder), Raised prostate specific antigen, Skin ulcer (HCC), Sleep disorder, Umbilical her vivain, and Urinary frequency. . Risk factors for MDR organisms include recent healthcare conta ct. HPI: Pt purulent drainage of left 2nd toe wound ulcer w/ surrounding toes/leg celluitis, wh ile on keflex since 6 days w/ receding calf to foot cellulitis but new purulent drainage Antimicrobials - Current Antibiotic Dates of Therapy Vancomycin 02/16- Rocephin 02/16- Antimicrobials - Discontinued Antibiotic Dates of Therapy Ampicillin x1 02/16 Micro/Cultures/Diagnostics: Microbiology Results (Last 14 Days by Collected Date with Culture/Sensitivity) Procedure Component Value Units Date/Time Culture, Wound, Smear, w/Anaerobe [[id number]] Collected: 02/17/19 1240 Order Status: Sent Lab Status: In process Updated: 02/17/19 1309 Specimen: Tissue from Toe, Second, Left Narrative: The following orders were created for panel order Culture, Wound, Smear, w/Anaerobe. Procedure Abnormality Status --------- ------ Culture, Wound, Smear[[id number]] In process Culture, Anaerobic[[id number]] In process Please view results for these tests on the individual orders. Culture, Wound, Smear [[id number]] Collected: 02/17/19 1240 Order Status: Sent Lab Status: In process Updated: 02/17/19 1309 Specimen: Tissue from Toe, Second, Left Culture, Anaerobic [[id number]] Collected: 02/17/19 124 Order Status: Sent Lab Status: In process Updated: 02/17/19 1309 Specimen: Tissue from Toe, Second, Left Culture, Blood [[id number]] Collected: 02/16/19 1306 Order Status: Completed Lab Status: Preliminary result Updated: 02/17/19 0111 Specimen: Peripheral Blood Culture No growth: Monitored continually by instrument for 5 days Culture, Blood [[id number]] Collected: 02/16/19 124 Order Status: Completed Lab Status: Preliminary result Updated: 02/17/19 0051 Specimen: Peripheral Blood Culture No growth: Monitored continually by instrument for 5 days Culture, Wound, Smear [[id number]] Collected: 02/16/19 124 Order Status: Completed Lab Status: Preliminary result Updated: 02/17/19 1014 Specimen: Tissue from Toe, Second, Left Culture 4+ Staphylococcus aureus Comment: Presumptive identification Identification and susceptibility to follow. Gram Stain Result 3+ White Blood Cells 2+ Gram positive cocci in clusters Relevant cultures from previous admits: Date Source Organisms Sensitivities 03/18/17 Wound E. faecalis pansensitive 03/13/17 Wound E. faecalis pansensitive Admission Wt: Weight: 71.7 kg (158 lb) Current Wt: Weight: 70.4 kg (155 lb 3.3 oz) Min/Max Temp past 24 hours:Temp Av.6 C (97.8 F) Min: 36.2 C (97.2 F) Max: 3 6.7 C (98.1 F) Estimated Creatinine Clearance: 80 mL/min (based on SCr of 0.84 mg/dL). Intake/Output Summary (Last 24 hours) at 02/18/2019 0616 Last data filed at 02/18/2019 0501 Gross per 24 hour Intake 1400 ml Output 613 ml Net 787 ml Temp: [36.2 C (97.2 F)-36.7 C (98.1 F)] 36.7 C (98.1 F) Pulse: [71-96] 71 Resp: [12-21] 16 BP: (96-150)/(62-112) 122/74 Recent Labs Lab 02/18/19 0529 02/17/19 0426 02/16/19 2247 02/16/19 1753 02/16/19 1240 WBC 8.9 7.6 -- -- 10.1 CREA 0.84 0.83 0.86 0.95 0.93 VANCOTROUGH 14.5* -- -- -- -- CRP -- -- -- -- 80.90* ESR -- -- -- -- 45* Imagin/26: XR foot left - Resection changes are again seen to the level of the proximal first me tatarsal diaphysis. Mild to moderate diffuse forefoot soft tissue swelling possibly represe nting cellulitis. No convincing radiographic evidence for osteomyelitis or definitive ulcer ation at this time. Date 02/16 02/17 02/18 Time of Vancomycin draw -- -- 0500 Vancomycin result -- -- 14.5 LEVEL or TROUGH -- trough Serum Creatinine 0.93 0.83 0.84 CrCl (mL/min) 73 81 80 Vanco load/bolus -- -- -- Vanco dose - current -- 1250 mg q12hr 1250 mg q12h Vanco dose - new 1250 mg q12hr No change No change Assessment: Vancomycin Day #3 Other antibiotics: rocephin Target Trough: 13-17 mcg/ml for DM foot WBC: wnl; Renal: SCr 0.84 - slightly above baseline (baseline 0.7-0.8) ; Temp: afebrile; Culture: blood cx - ngtd, wound smear cx - in process; VS: tachycardic at times; ESR: 45; C RP: 80.90 Renal function: UOP: 0.7 mL/kg/hr, improving 02/17 evening vanco dose started late, IV failed prior to full dose being given, and infu monica not complete until @2200--re-timed subsequent doses. Plan: 1. Continue current vancomycin dosing 2. Next trough ordered for 02/19 @1700 (60 minutes prior to 4th dose) 3. Serum creatinine DAILY for [...] dose References: Vancomycin dosing protocol IDSA guidelines Procalcitonin Algorithm Per P&T-approved Vancomycin Dosing and Monitoring Protocol Electronically signed by: Bre York, PharmD 02/18/2019 6:16 Casi Nash MD - 02/17/2019 4:00 PM PDT [facility] Hospitalist Progress Note Valentina Bunn is a 73 y.o. male HPI and HOSPITAL COURSE: He is a 73 y/o male with PMH of HTN, HPL, severe PVD,diabetic foot ulcer s/p R AKA and ampu tation of L 1 st toe, tobacco use presented on 02/16/19 with left 2nd toe ulcer with increase d purulent drainage and worsening cellulitis over past 7 days. Had been on keflex for past 6 days. ASSESSMENT and PLAN: 1. Diabetic Left 2nd toe ulcer/LLE cellulitis c/b acute OM in the setting of known severe P VD - He was taken to OR this afternoon. - f/u WC and Intra-op culture - BCx2- no growth so far - continue ceftriaxone and vancomycin 2. Hyperkalemia - resolved with IVF and lisinopril on hold 3. Hyponatremia from hypovolemia - improving with IVF 4. HTN - c/w metoprolol - continue to hold lisinopril 5. DM2 c/b neuropathy/diabetic foot ulcers - metformin on hold - f/u A1C - continue lantus 7 units and ISS#2 - c/w gabapentin and trazodone 6. Active smoker - education on smoking cessation 7. GERD - c/w PPI DVT Prophylaxis: heparin Code Status: Full Code. Disposition: home when medically ready SUBJECTIVE: Pain is better controlled with morphine. Reports of mild nausea. No chest pain, SOB or dizz iness. No abdominal pain. VITALS: Temp: 36.6 C (97.8 F), Pulse: 88, Resp: 20, BP: 128/62, SpO2 98 % on room air at flow r ate L/min Temp Min: 36.2 C (97.2 F) Max: 36.7 C (98 F) Weight: 71.7 kg (158 lb) Intake/Output Summary (Last 24 hours) at 02/17/2019 1600 Last data filed at 02/17/2019 1327 Gross per 24 hour Intake 2660 ml Output 1235 ml Net 1425 ml PHYSICAL EXAM: Gen Bebe - alert, cooperative and no distress Head - Normocephalic, without obvious abnormality Eyes - PERRL, conjunctiva/corneas clear ENT - mucous membranes moist Neck - supple Lungs - clear b/l Heart - S1S2 heard Abdomen - soft, non tender, BS+ Extremities - R AKA, LLE cellulitis with necrotic ulcer on Left toe DIAGNOSTIC STUDIES: Available data and images were reviewed personally. Significant results and findings are a ddressed here or in the Assessment and Plan. Recent Results (from the past 24 hour(s)) Basic Metabolic Panel Result Value Ref Range Na 132 (L) 136 - 145 mmol/L K 5.1 3.4 - 5.1 mmol/L Cl 107 98 - 107 mmol/L CO2 20 20 - 31 mmol/L Anion Gap 5 3 - 16 mmol/L Glucose 103 60 - 106 mg/dL BUN 9 9 - 23 mg/dL Creatinine 0.95 0.70 - 1.30 mg/dL eGFR if not >60 >=60 mL/min/1.73m2 Calcium 8.9 8.7 - 10.4 mg/dL BUN/Creatinine Ratio 9.5 POC Glucose Result Value Ref Range Glucose, POC 99 70 - 109 mg/dL POC Glucose Result Value Ref Range Glucose, POC 124 (H) 70 - 109 mg/dL Basic Metabolic Panel Result Value Ref Range Na 135 (L) 136 - 145 mmol/L K 4.3 3.4 - 5.1 mmol/L Cl 109 (H) 98 - 107 mmol/L CO2 24 20 - 31 mmol/L Anion Gap 2 (L) 3 - 16 mmol/L Glucose 102 60 - 106 mg/dL BUN 8 (L) 9 - 23 mg/dL Creatinine 0.86 0.70 - 1.30 mg/dL eGFR if not >60 >=60 mL/min/1.73m2 Calcium 8.5 (L) 8.7 - 10.4 mg/dL BUN/Creatinine Ratio 9.3 Basic Metabolic Panel Result Value Ref Range Na 135 (L) 136 - 145 mmol/L K 4.4 3.4 - 5.1 mmol/L Cl 109 (H) 98 - 107 mmol/L CO2 24 20 - 31 mmol/L Anion Gap 2 (L) 3 - 16 mmol/L Glucose 117 (H) 60 - 106 mg/dL BUN 9 9 - 23 mg/dL Creatinine 0.83 0.70 - 1.30 mg/dL eGFR if not >60 >=60 mL/min/1.73m2 Calcium 8.4 (L) 8.7 - 10.4 mg/dL BUN/Creatinine Ratio 10.8 CBC no Differential Result Value Ref Range WBC 7.6 4.0 - 11.0 K/uL RBC 4.52 4.30 - 5.70 M/uL Hemoglobin 14.5 13.5 - 18.0 g/dL Hematocrit 41.8 40.0 - 51.0 % MCV 92.5 83.0 - 101.0 fL MCH 32.1 28.0 - 35.0 pg MCHC 34.7 32.0 - 36.0 g/dL RDW-CV 14.1 <15.0 % RDW-SD 48.3 (H) 35.1 - 46.3 fL Platelet Count 321 140 - 440 K/uL MPV 11.6 6.5 - 12.4 fL % nRBC 0 0 - 2 per 100 WBCs Absolute nRBC 0.00 0.00 - 0.01 K/uL Magnesium Result Value Ref Range Magnesium 2.0 1.6 - 2.6 mg/dL Protime INR Result Value Ref Range Prothrombin Time 13.6 11.3 - 13.9 seconds INR 1.0 0.9 - 1.1 Hepatic Function Panel Result Value Ref Range Bilirubin Total 0.3 0.3 - 1.2 mg/dL Total Protein 5.6 (L) 5.7 - 8.2 g/dL Albumin 3.2 3.2 - 4.8 g/dL AST 17 0 - 34 U/L ALT 8 (L) 10 - 49 U/L Alkaline Phosphatase 96 46 - 116 U/L Globulin 2.4 2.1 - 3.8 g/dL Albumin/Globulin Ratio 1.3 0.8 - 1.9 Bilirubin, Direct 0.20 0.00 - 0.30 mg/dl POC Glucose Result Value Ref Range Glucose, POC 117 (H) 70 - 109 mg/dL POC Glucose Result Value Ref Range Glucose, POC 110 (H) 70 - 109 mg/dL Xr Foot Left 3 + Vw Result Date: 02/16/2019 XR FOOT LEFT 3 + VW 02/16/2019 1:11 PM HISTORY: FOOT WOUND CELLULITIS. COMPARISON: None. FIN DINGS: Resection changes are again seen to the level of the proximal first metatarsal diaphy sis. Mild to moderate diffuse forefoot soft tissue swelling. Small plantar calcaneal and eit her side. No suspicious ulceration or bony destruction. No erosive changes. IMPRESSION - Res ection changes are again seen to the level of the proximal first metatarsal diaphysis. Mild to moderate diffuse forefoot soft tissue swelling possibly representing cellulitis. No convi ncing radiographic evidence for osteomyelitis or definitive ulceration at this time. Dictate d and Signed by: Jaxson Nettles MD Electronically signed: 02/16/2019 2:51 PM Current Facility-Administered Medications: acetaminophen 650 mg Oral Q4H PRN atorvaSTATin 10 mg Oral Nightly cefTRIAXone 1 g Intravenous Daily clopidogrel 75 mg Oral Daily cyclobenzaprine 5 mg Oral Q8H PRN dextrose 12.5-25 g Intravenous PRN And dextrose 10% Intravenous Continuous PRN gabapentin 600 mg Oral TID heparin 5,000 Units Subcutaneous 2 times per day HYDROcodone-acetaminophen 1 tablet Oral Q6H PRN insulin glargine 0.1 Units/kg/day Subcutaneous QPM insulin lispro 0-12 Units Subcutaneous 4x Daily WC and HS insulin lispro 5 Units Subcutaneous TID WC lactated ringers Intravenous Continuous metoprolol succinate 25 mg Oral Daily morphine 2 mg Intravenous Q2H PRN nicotine polacrilex 2 mg Oral PRN ondansetron 4 mg Intravenous Q6H PRN pantoprazole 40 mg Oral BID AC traZODone 150 mg Oral Nightly vancomycin 1,250 mg Intravenous Q12H vancomycin per pharmacy Other Pharmacy Consult Casi Hicks MD 02/17/2019 16:00 [facility], Akil Chávez, Dry Mixer - 02/17/2019 10:00 AM PDTFormatting of this note might be different fro m the original. VANCOMYCIN PER PHARMACY PROTOCOL: AMS/Drug Name - Vancomycin Patient: Valentina Bunn [id number] Admit: 02/16/2019 12:15 RELEVANT ALLERGIES: N/A 73 yrs old male patient admitted on 02/16/2019 for DM foot ulcer. Patient is receiving vanc omycin starting on 02/16/2019 for DM foot. Patient has a past medical history of Arrhythmia, Arthritis, Carpal tunnel syndrome, Constipation, chronic, Dental caries, Depression, Diabet es mellitus (HCC), Diabetic neuropathy (HCC), Epidermal cyst of face, Ganglion cyst, GERD (g astroesophageal reflux disease), Hyperlipidemia, Hypertension, Hypomagnesemia, Impotence, In somnia, Neuropathy, Nicotine dependence, Osteoarthrosis involving multiple sites, Peripheral vascular disease (HCC), PTSD (post-traumatic stress disorder), PTSD (post-traumatic stress disorder), Raised prostate specific antigen, Skin ulcer (HCC), Sleep disorder, Umbilical her vivian, and Urinary frequency. . Risk factors for MDR organisms include recent healthcare conta ct. HPI: Pt purulent drainage of left 2nd toe wound ulcer w/ surrounding toes/leg celluitis, wh ile on keflex since 6days w/ receding calf to foot cellulitis but new purulent drainage Antimicrobials - Current Antibiotic Dates of Therapy Vancomycin 02/16- Rocephin 02/16- Antimicrobials - Discontinued Antibiotic Dates of Therapy Ampicillin x1 02/16 Micro/Cultures/Diagnostics: Microbiology Results (Last 14 Days by Collected Date with Culture/Sensitivity) Procedure Component Value Units Date/Time Culture, Blood [[id number]] Collected: 02/16/19 1306 Order Status: Completed Lab Status: Preliminary result Updated: 02/17/19 0111 Specimen: Peripheral Blood Culture No growth: Monitored continually by instrument for 5 days Culture, Blood [[id number]] Collected: 02/16/19 1240 Order Status: Completed Lab Status: Preliminary result Updated: 02/17/19 0051 Specimen: Peripheral Blood Culture No growth: Monitored continually by instrument for 5 days Culture, Wound, Smear [[id number]] Collected: 02/16/19 1240 Order Status: Sent Lab Status: In process Updated: 02/16/19 1243 Specimen: Tissue from Toe, Second, Left Relevant cultures from previous admits: Date Source Organisms Sensitivities 03/18/17 Wound E. faecalis pansensitive 03/13/17 Wound E. faecalis pansensitive Admission Wt: Weight: 71.7 kg (158 lb) Current Wt: Weight: 70.4 kg (155 lb 3.3 oz) Min/Max Temp past 24 hours:Temp Av.7 C (98.1 F) Min: 36.2 C (97.2 F) Max: 3 7.7 C (99.8 F) Estimated Creatinine Clearance: 81 mL/min (based on SCr of 0.83 mg/dL). Intake/Output Summary (Last 24 hours) at 02/17/2019 1009 Last data filed at 02/17/2019 0807 Gross per 24 hour Intake 1760 ml Output 1225 ml Net 535 ml Temp: [36.2 C (97.2 F)-37.7 C (99.8 F)] 36.2 C (97.2 F) Pulse: [77-106] 93 Resp: [16-20] 20 BP: (113-142)/(49-77) 142/65 Recent Labs Lab 02/17/19 0426 02/16/19 2247 02/16/19 1753 02/16/19 1240 WBC 7.6 -- -- 10.1 CREA 0.83 0.86 0.95 0.93 CRP -- -- -- 80.90* ESR -- -- -- 45* Imagin/26: XR foot left - Resection changes are again seen to the level of the proximal first me tatarsal diaphysis. Mild to moderate diffuse forefoot soft tissue swelling possibly represe nting cellulitis. No convincing radiographic evidence for osteomyelitis or definitive ulcer ation at this time. Date 02/16 02/17 02/18 Time of Vancomycin draw -- -- 0400 Vancomycin result -- -- pending LEVEL or TROUGH -- trough Serum Creatinine 0.93 0.83 CrCl (mL/min) 73 81 Vanco load/bolus -- -- Vanco dose - current -- 1250 mg q12hr Vanco dose - new 1250 mg q12hr No change Assessment: Vancomycin Day # 2 Other antibiotics: rocephin Target Trough: 13-17 mcg/ml for DM foot WBC: wnl, and has continued to trend down; Renal: SCr 0.83 - slightly above baseline (ba seline 0.7-0.8) ; Temp: afebrile; Culture: blood cx - ngtd, wound smear cx - in process; VS: tachycardic at times; ESR: 45; CRP: 80.90 Renal function: UOP: 0.4 mL/kg/hr Plan: 1. Adjust current vancomycin dose as necessary based on trough results that are ordered for 02/18/2019 @ 0400 (draw 60 minutes prior to hanging the 4th dose) 2. Serum creatinine DAILY for first 3 days, then at least every 3 days while on vancomycin. 3. Will monitor renal function, clinical status, infection markers daily with troughs and d ose adjustment as needed. Definitions: For the purpose of this protocol, "trough" means a steady state trough before the 4th dose of the initial/new dosing regimen and "level" means all other levels drawn including before the 3rd dose References: Vancomycin dosing protocol IDSA guidelines Procalcitonin Algorithm Per P&T-approved Vancomycin Dosing and Monitoring Protocol Electronically signed by: Akil Siegel, Dry Mixer 02/17/2019 10:09Electroni jono signed by Akil Siegel, Dry Mixer at 02/17/2019 10:09 AM Homa Qureshi ret, PharmD - 02/16/2019 2:54 PM PDTFormatting of this note might be different from the o riginal. VANCOMYCIN PER PHARMACY PROTOCOL: AMS/Drug Name - Vancomycin Patient: Valentina Bunn ED12/ED12 Admit: 02/16/2019 12:15 RELEVANT ALLERGIES: N/A 73 yrs old male patient admitted on 02/16/2019 for DM foot ulcer. Patient is receiving vanc omycin starting on 02/16/2019 for DM foot. Patient has a past medical history of Arrhythmia, Arthritis, Carpal tunnel syndrome, Constipation, chronic, Dental caries, Depression, Diabet es mellitus (HCC), Diabetic neuropathy (HCC), Epidermal cyst of face, Ganglion cyst, GERD (g astroesophageal reflux disease), Hyperlipidemia, Hypertension, Hypomagnesemia, Impotence, In somnia, Neuropathy, Nicotine dependence, Osteoarthrosis involving multiple sites, Peripheral vascular disease (HCC), PTSD (post-traumatic stress disorder), PTSD (post-traumatic stress disorder), Raised prostate specific antigen, Skin ulcer (HCC), Sleep disorder, Umbilical her vivian, and Urinary frequency. . Risk factors for MDR organisms include recent healthcare conta ct. HPI: Pt purulent drainage of left 2nd toe wound ulcer w/ surrounding toes/leg celluitis, wh ile on keflex since 6days w/ receding calf to foot cellulitis but new purulent drainage Antimicrobials - Current Antibiotic Dates of Therapy Vancomycin 02/16- Rocephin 02/16- Antimicrobials - Discontinued Antibiotic Dates of Therapy Ampicillin x1 02/16 Micro/Cultures/Diagnostics: Microbiology Results (Last 14 Days by Collected Date with Culture/Sensitivity) Procedure Component Value Units Date/Time Culture, Blood [[id number]] Collected: 02/16/19 1306 Order Status: Sent Lab Status: In process Updated: 02/16/19 1307 Specimen: Peripheral Blood Culture, Blood [[id number]] Collected: 02/16/19 1240 Order Status: Sent Lab Status: In process Updated: 02/16/19 1243 Specimen: Peripheral Blood Culture, Wound, Smear [[id number]] Collected: 02/16/19 1240 Order Status: Sent Lab Status: In process Updated: 02/16/19 1243 Specimen: Tissue from Toe, Second, Left Relevant cultures from previous admits: Date Source Organisms Sensitivities 03/18/17 Wound E. faecalis pansensitive 03/13/17 Wound E. faecalis pansensitive Admission Wt: Weight: 71.7 kg (158 lb) Current Wt: Weight: 71.7 kg (158 lb) Min/Max Temp past 24 hours:Temp Av.7 C (99.8 F) Min: 37.7 C (99.8 F) Max: 3 7.7 C (99.8 F) CrCl cannot be calculated (Unknown ideal weight.). No intake or output data in the 24 hours ending 02/16/19 1454 Temp: [37.7 C (99.8 F)] 37.7 C (99.8 F) Pulse: [98-106] 98 Resp: [16] 16 BP: (125-126)/(58-59) 126/59 Recent Labs Lab 02/16/19 1240 WBC 10.1 CREA 0.93 CRP 80.90* ESR 45* Imagin/26: XR foot left - Resection changes are again seen to the level of the proximal first me tatarsal diaphysis. Mild to moderate diffuse forefoot soft tissue swelling possibly represe nting cellulitis. No convincing radiographic evidence for osteomyelitis or definitive ulcer ation at this time. Date 02/16 Time of Vancomycin draw -- Vancomycin result -- LEVEL or TROUGH Serum Creatinine 0.93 CrCl (mL/min) 73 Vanco load/bolus -- Vanco dose - current -- Vanco dose - new 1250 mg q12hr Assessment: Vancomycin Day # 1 Other antibiotics: rocephin Target Trough: 13-17 mcg/ml for DM foot WBC: wnl; Renal: SCr 0.93 -slightly above baseline (baseline 0.7-0.8) ; Temp: afebrile; Culture: blood and wound pending; VS: tachycardic at times; ESR: 45; CRP: 80.90 Renal function: UOP: mL/kg/hr, will be assessed when more information available Plan: 1. Vancomycin load of 1250 mg (~17.4 mg/kg) IVPB q12h 2. Vancomycin trough ordered for 02/18/2019 @ 0400 (draw 60 minutes prior to hanging the [...] dose References: Vancomycin dosing protocol IDSA guidelines Procalcitonin Algorithm Per P&T-approved Vancomycin Dosing and Monitoring Protocol Electronically signed by: Ozzy Herring PharmD 02/16/2019 14:54 documented in this encounter Plan of Treatment + +------+--------+ + + | Name | Type | Priori | Associated Diagnoses | Date/Time | | | | ty | | | + +------+--------+ + + | ED INFORMATION | VIDA | Routin | | 02/16/2019 11:17 AM | | EXCHANGE | | e | | PDT | + +------+--------+ + + + +------+--------+ + + | Name | Type | Priori | Associated Diagnoses | Order Schedule | | | | ty | | | + +------+--------+ + + | DME: Misc postop | DME | Routin | Diabetic foot | DME 1 Time for 1 | | shoe sqr toe WMN | | e | infection (HCC) | Occurrences starting | | (Size -large ) | | | Peripheral vascular | 02/17/2019 until | | | | | disease (HCC) | 02/17/2019 | + +------+--------+ + + documented as of this encounter Procedures + +--------+ + + + | Procedure Name | Priori | Date/Time | Associated Diagnosis | Comments | | | ty | | | | + +--------+ + + + | POC GLUCOSE | Routin | 02/18/2019 | | Results for this | | | e | 11:58 AM | | procedure are in the | | | | PDT | | results section. | + +--------+ + + + | POC GLUCOSE | Routin | 02/18/2019 | | Results for this | | | e | 6:20 AM | | procedure are in the | | | | PDT | | results section. | + +--------+ + + + | CBC WITH | Routin | 02/18/2019 | | Results for this | | DIFFERENTIAL | e | 5:29 AM | | procedure are in the | | | | PDT | | results section. | + +--------+ + + + | MAGNESIUM | Routin | 02/18/2019 | | Results for this | | | e | 5:29 AM | | procedure are in the | | | | PDT | | results section. | + +--------+ + + + | BRIAN TERESA | Timed | 02/18/2019 | | Results for this | | | | 5:29 AM | | procedure are in the | | | | PDT | | results section. | + +--------+ + + + | BASIC METABOLIC | Routin | 02/18/2019 | | Results for this | | PANEL | e | 5:29 AM | | procedure are in the | | | | PDT | | results section. | + +--------+ + + + | POC GLUCOSE | Routin | 02/17/2019 | | Results for this | | | e | 8:39 PM | | procedure are in the | | | | PDT | | results section. | + +--------+ + + + | POC GLUCOSE | Routin | 02/17/2019 | | Results for this | | | e | 5:55 PM | | procedure are in the | | | | PDT | | results section. | + +--------+ + + + | CULTURE, WOUND, | Routin | 02/17/2019 | | Results for this | | SMEAR | e | 12:40 PM | | procedure are in the | | | | PDT | | results section. | + +--------+ + + + | CULTURE, WOUND, | Routin | 02/17/2019 | | Results for this | | SMEAR, W/ANAEROBE | e | 12:40 PM | | procedure are in the | | | | PDT | | results section. | + +--------+ + + + | CULTURE, ANAEROBIC | Routin | 02/17/2019 | | Results for this | | | e | 12:40 PM | | procedure are in the | | | | PDT | | results section. | + +--------+ + + + | AMPUTATION TOE | | 02/17/2019 | ... | | | | | 12:13 PM | | | | | | PDT | | | + +--------+ + + + | POC GLUCOSE | Routin | 02/17/2019 | | Results for this | | | e | 11:38 AM | | procedure are in the | | | | PDT | | results section. | + +--------+ + + + | POC GLUCOSE | Routin | 02/17/2019 | | Results for this | | | e | 6:45 AM | | procedure are in the | | | | PDT | | results section. | + +--------+ + + + | PROTIME INR | Routin | 02/17/2019 | | Results for this | | | e | 4:26 AM | | procedure are in the | | | | PDT | | results section. | + +--------+ + + + | CBC NO DIFFERENTIAL | Routin | 02/17/2019 | | Results for this | | | e | 4:26 AM | | procedure are in the | | | | PDT | | results section. | + +--------+ + + + | MAGNESIUM | Routin | 02/17/2019 | | Results for this | | | e | 4:26 AM | | procedure are in the | | | | PDT | | results section. | + +--------+ + + + | HEMOGLOBIN A1C | Add-On | 02/17/2019 | | Results for this | | | | 4:26 AM | | procedure are in the | | | | PDT | | results section. | + +--------+ + + + | HEPATIC FUNCTION | Add-On | 02/17/2019 | | Results for this | | PANEL | | 4:26 AM | | procedure are in the | | | | PDT | | results section. | + +--------+ + + + | BASIC METABOLIC | Routin | 02/17/2019 | | Results for this | | PANEL | e | 4:26 AM | | procedure are in the | | | | PDT | | results section. | + +--------+ + + + | BASIC METABOLIC | Routin | 02/16/2019 | | Results for this | | PANEL | e | 10:47 PM | | procedure are in the | | | | PDT | | results section. | + +--------+ + + + | POC GLUCOSE | Routin | 02/16/2019 | | Results for this | | | e | 7:46 PM | | procedure are in the | | | | PDT | | results section. | + +--------+ + + + | POC GLUCOSE | Routin | 02/16/2019 | | Results for this | | | e | 6:01 PM | | procedure are in the | | | | PDT | | results section. | + +--------+ + + + | BASIC METABOLIC | Routin | 02/16/2019 | | Results for this | | PANEL | e | 5:53 PM | | procedure are in the | | | | PDT | | results section. | + +--------+ + + + | URINALYSIS WITH | STAT | 02/16/2019 | | Results for this | | MICROSCOPIC WITH | | 2:51 PM | | procedure are in the | | CULTURE IF INDICATED | | PDT | | results section. | + +--------+ + + + | XR FOOT LEFT 3 + VW | STAT | 02/16/2019 | | Results for this | | | | 1:11 PM | | procedure are in the | | | | PDT | | results section. | + +--------+ + + + | CULTURE, BLOOD | STAT | 02/16/2019 | | Results for this | | | | 1:06 PM | | procedure are in the | | | | PDT | | results section. | + +--------+ + + + | SEDIMENTATION RATE | STAT | 02/16/2019 | | Results for this | | | | 12:40 PM | | procedure are in the | | | | PDT | | results section. | + +--------+ + + + | CULTURE, WOUND, | STAT | 02/16/2019 | | Results for this | | SMEAR | | 12:40 PM | | procedure are in the | | | | PDT | | results section. | + +--------+ + + + | CULTURE, BLOOD | STAT | 02/16/2019 | | Results for this | | | | 12:40 PM | | procedure are in the | | | | PDT | | results section. | + +--------+ + + + | CBC WITH | STAT | 02/16/2019 | | Results for this | | DIFFERENTIAL | | 12:40 PM | | procedure are in the | | | | PDT | | results section. | + +--------+ + + + | C-REACTIVE PROTEIN | STAT | 02/16/2019 | | Results for this | | | | 12:40 PM | | procedure are in the | | | | PDT | | results section. | + +--------+ + + + | BASIC METABOLIC | STAT | 02/16/2019 | | Results for this | | PANEL | | 12:40 PM | | procedure are in the | | | | PDT | | results section. | + +--------+ + + + | ED INFORMATION | Routin | 02/16/2019 | | | | EXCHANGE | e | 11:17 AM | | | | | | PDT | | | + +--------+ + + + +---+--------+ | | | | | Proced | | | ure | | | Note - | | | Gordy, | | | Lab In | | | | | | Hlseve | | | n - | | | | | | 2018 | | | 11:18 | | | AM PDT | | | | | | Format [...] | | | FICATI | | | ON?09/ | | | [birth year]/201 | | | 9 | | | 11:16? | | | CATER, | | | | | | VALENTINA | | | | | | R?MRN: | | | | | | [id number] | | | [id number] | | | riteri | | | [...] MED | | | | | | 2019-0 | | | 8-30 | | | HYDROC | | | ODONE- | | | ACETAM | | | IN | | | 10-325 | | | MG | | | 112 | | | YANDEL | | | O | | | FERRAN | | | CO 2 | | | 40 | | | 2019-0 | | | 7-29 | | | HYDROC | | | ODONE- | | | ACETAM | | | IN | | | | | | MG | | | 112 | | | YANDEL | | | O | | | FERRAN | | | CO 2 | | | 40 | | | | | | 6-27 | | | HYDROC | | | ODONE- | | | ACETAM | | | IN | | | | | | MG | | | 112 | | | YANDEL | | | O | | | FERRAN | | | CO 2 | | | 40 | | | | | | 5-23 | | | HYDROC | | | ODONE- | | | ACETAM | | | IN | | | | | | MG | | | 112 | | | YANDEL | | | O | | | FERRAN | | | CO 2 | | | 40 | | | | | | 4- | | | HYDROC | | | ODONE- | | | ACETAM | | | IN | | | | | | MG | | | 112 | | | YANDEL | | | O | | | FERRAN | | | CO 2 | | | 40 | | | | | | 3-26 | | | HYDROC | | | ODONE- | | | ACETAM | | | IN | | | | | | MG | | | 112 | | | [facility] | | | BLUE | | | 2 40 | | | | | | 2-26 | | | HYDROC | | | ODONE- | | | ACETAM | | | IN | | | | | | MG | | | 112 | | | YANDEL | | | O | | | FERRAN | | | CO 2 | | | 40 | | | | | | 1-29 | | | HYDROC | | | ODONE- | | | ACETAM | | | IN | | | | | | MG | | | 112 | | | YANDEL | | | O | | | FERRAN | | | CO 2 | | | 40 | | | 2017-05 | | | 2- | | | HYDROC | | | ODONE- | | | ACETAM | | | IN | | | | | | MG | | | 112 | | | YANDEL | | | O | | | FERRAN | | | CO 2 | | | 40 | | | 2018-1 | | | 1-26 | | | HYDROC | | | ODONE- | | | ACETAM | | | IN | | | 10-325 | | | MG | | | 112 | | | YANDEL | | | O | | | FERRAN | | | CO 2 | | | 40 | | | 2018-1 | | | 0-11 | | | HYDROC | | | ODONE- | | | ACETAM | | | IN | | | 10-325 | | | MG | | | 112 | | | [facility] | | | BLUE | | | 2 40 | | | Rx | | | Summar | | | yMetri | | | c | | | Count | | | CS | | | II-V | | | Rx 11 | | | CS-II | | | Rx 11 | | | Quanti | | | ty | | | Dispen | | | sed | | | 1,232 | | | Unique | | | | | | Prescr | | | ibers | | | 2 | | | Unique | | | | | | Pharma | | | cies 1 | | | | | | Benzos | | | 0 | | | Opioid | | | s 11 | | | Long | | | [...] | | | Center | | | 1 0 | | | Total | | | 1 0 | | | Note: | | [...] | | | ion | | | Recent | | | | | | Inpati | | | ent | | | Visit | | | Summar | | | yNo | | | record | | | ed | | | inpati | | | ent | | | visits | | | . Care | | | | | | TeamTh | | | [...] | | | /notif | | | [id number] | | | [id number] | | | [id number] | | | [id number] | | | [id number] | | | [id number] | | | 47 | | | PLEASE | | | [...] documented in this encounter Results POC Glucose (02/18/2019 11:58 AM PDT) + + + + + + | Component | Value | Ref Range | Performed | Pathologist | | | | | At | Signature | + + + + + + | Glucose, | 136 (H)Comment: Glu2: | 70 - 109 mg/dL | [facility] | | | POC | Use This Result | | [facility] | | | | [...] [address] | [place] | [phone] | | [facility] | | [address] | | | - LABORATORY | | | | + + + + + POC Glucose (02/18/2019 6:20 AM PDT) + +---------+ + + + | Component | Value | Ref Range | Performed | Pathologist | | | | | At | Signature | + +---------+ + + + | Glucose, | 136 (H) | 70 - 109 mg/dL | [...] [address] | [place] | [phone] | | [facility] | | [address] | | | - LABORATORY | | | | + + + + + Vancomycin, Trough (02/18/2019 5:29 AM PDT) + + + + + [...] + + + + | Vancomycin | 14.5 (H) | 5.0 - 10.0 | [facility] [...] [address] | [place] | [phone] | | [facility] | | [address] | | | - LABORATORY | | | | + + + + + Magnesium (02/18/2019 5:29 AM PDT) + +-------+ + + + | Component | Value | Ref Range | Performed | Pathologist | | | | | At | Signature | + +-------+ + + + | Magnesium | 2.0 | 1.6 - 2.6 mg/dL | [facility] [...] [address] | [place] | [phone] | | [facility] | | [address] | | | - LABORATORY | | | | + + + + + Basic Metabolic Panel (02/18/2019 5:29 AM PDT) + + + + + [...] + + + + | K | 4.5 | 3.4 - 5.1 | [facility] | | | | | mmol/L | [facility] | | | [facility] | | [facility] | | | | | | C[facility] - | | | | | | LABORATORY | | + + + + + + | Cl | 105 | 98 - 107 mmol/L | [facility] | | | [facility] | [facility] | | | | | | CENTER - | | | | | | LABORATORY | | + + + + + + | CO2 | 25 | 20 - 31 mmol/L | [facility] | | | | | | [facility] | | [...] + | Glucose | 131 (H) | 60 - 106 mg/dL | [facility] | [facility] | | | [facility] | [facility] | | | | | | CENTER - | | | | | | LABORATORY | | + + + + + + | BUN | 8 (L) | 9 - 23 mg/dL | [facility] | | | | | | [facility] | | | | | | [facility]ICAL | | | | | | CENTER - | | | | | | LABORATORY | | + + + + + + | Creatinine | 0.84 | 0.70 - 1.30 | [facility] | | | | | mg/dL | [facility] | | | | | | [facility]ICAL | | | | | | CENTER - | | | | | | LABORATORY | | + + + + + + | eGFR if not | >60Comment: GLOMERULAR | >=60 | [facility] | | | | FILTRATION | mL/min/1.73m2 | [facility] | | | CYPRIOT | RATE,ESTIMATED | | MEDICAL | | | | mL/min/1.18x7Fzih than | | CENTER - | | [...] + + + + | BUN/Creatin | 9.5 | | [facility] | | | ine [...] + | [facility] | [address] | [place] | [phone] | | [facility] | | [address] | | | - LABORATORY | | | | + + + + + CBC with Differential (02/18/2019 5:29 AM PDT) + + + + + + | Component | Value | Ref Range | Performed | Pathologist | | | | | At | Signature | + + + + + + | WBC | 8.9 | 4.0 - 11.0 K/uL | [facility] | [facility] | | [facility] | [facility] | | | | | | CENTER - | | | | | | LABORATORY | | + + + + + + | RBC | 4.98 | 4.30 - 5.70 | [facility] | | | | | M/uL | [facility] | | | | | [facility] | | | | | | C[facility] - | | | | | | LABORATORY | | + + + + + + | Hemoglobin | 15.9 | 13.5 - 18.0 | [facility] | | | | | g/dL | [facility] | | | | | | [facility] | | | | | | CENTER - | | | | | | LABORATORY | | + + + + + + | Hematocrit | 46.4 | 40.0 - 51.0 % | [facility] [...] + + + + | MCH | 31.9 | 28.0 - 35.0 pg | [facility] | | | [facility] | [facility] | | | [facility] | | [facility]ICAL | | | | | | CENTER - | | | | | | LABORATORY | | + + + + + + | MCHC | 34.3 | 32.0 - 36.0 | [facility] | | | | | g/dL | [facility] | | | | | | MEDICAL | | | | | | CENTER - | | | | | | LABORATORY | | + + + + + + | RDW-CV | 14.1 | <15.0 % | [facility] | | | | | [facility] | | | [facility] | | MEDICAL | | | | | | CENTER - | | | | | | LABORATORY | | + + + + + + | RDW-SD | 48.3 (H) | 35.1 - 46.3 fL | [facility] | | | | | [facility] | | | [facility] | [facility]ICAL | | | | | | CENTER - | | | | | | LABORATORY | | + + + + + + | Platelet | 372 | 140 - 440 K/uL | [facility] | | | Count | | | [facility] | | | | | | MEDICAL | | | | | | CENTER - | | | | | | LABORATORY | | + + + + + + | MPV | 11.5 | 6.5 - 12.4 fL | [facility] | | | | | | [facility] | | | [facility] | | [facility]ICAL | | | | | | C[facility] - | | | | | | LABORATORY | | + + + + + + | % | 75.8 | 45.0 - 82.0 % | [facility] | | | Neutrophils | | | [facility] | | | | | | MEDICAL | | | | | | CENTER - | | | | | | LABORATORY | | + + + + + + | % | 18.3 (L) | 20.0 - 45.0 % | [facility] | | | Lymphocytes | | | [facility] | | | | | | MEDICAL | | | | | | CENTER - | | | | | | LABORATORY | | + + + + + + | % Monocytes | 5.0 | 4.0 - 12.0 % | [facility] | | | | | | [facility] | | | | | | [facility]ICAL | | | | | | CENTER - | | | | | | LABORATORY | | + + + + + + | % | 0.0 | 0.0 - 5.0 % | [facility] | | | Eosinophils | | | [facility] | | | | | | MEDICAL | | | | | | CENTER - | | | | | | LABORATORY | | + + + + + + | % Basophils | 0.2 | 0.0 - 1.0 % | [facility] | | | | | | [facility] | [facility] | [facility] | | | | | | C[facility] - | | | | | | LABORATORY | | + + + + + + | % Immature | 0.7 (H)Comment: | 0.0 - 0.4 % | [facility] | | | Granulocyte | Preliminary studies have | | [facility] | | | s | indicated the IG% | | MEDICAL | | | | and/or IG# show promise | | CENTER - | | | | as an early indicator | | LABORATORY | | | | for infection. | | | | + + + + + + | Absolute | 6.77 | 1.80 - 8.50 | [facility] | | | Neutrophils | | K/uL | [facility] | | | | | | MEDICAL | | | | | | CENTER - | | | | | | LABORATORY | | + + + + + + | Absolute | 1.63 | 0.60 - 3.20 | [facility] | | | Lymphocytes | | K/uL | [facility] | | | | | | MEDICAL | | | | | | CENTER - | | | | | | LABORATORY | | + + + + + + | Absolute | 0.45 | 0.00 - 1.00 | [facility] | [...] + + + + | Absolute | 0.02 | 0.00 - 0.10 | [facility] | | | Basophils | | K/uL | [facility] | | | | | | MEDICAL | | | | | | CENTER - | | | | | | LABORATORY | | + + + + + + | Absolute | 0.06 (H) | 0.00 - 0.03 | [facility] [...] | [address] | [place] | [phone] | | [facility] | | [address] | | | - LABORATORY | | | | + + + + + POC Glucose (02/17/2019 8:39 PM PDT) + +---------+ + + + | Component | Value | Ref Range | Performed | Pathologist | | | | | At | Signature | + +---------+ + + + | Glucose, | 216 (H) | 70 - 109 mg/dL | [facility] [...] [address] | [place] | [phone] | | [facility] | | [address] | | | - LABORATORY | | | | + + + + + POC Glucose (02/17/2019 5:55 PM PDT) + +---------+ + + + | Component | Value | Ref Range | Performed | Pathologist | | | | | At | Signature | + +---------+ + + + | Glucose, | 153 (H) | 70 - 109 [...] + | [facility] | [address] | [place] | [phone] | | [facility] | | [address] | | | - LABORATORY | | | | + + + + + Culture, Anaerobic (02/17/2019 12:40 PM PDT) + + + + + + | Component | Value | Ref Range | Performed | Pathologist | | | | | At | Signature | + + + + + + | Culture | No anaerobes isolated. | | [facility] | | | | | | [facility] | | | | | | MEDICAL | | | | | | CENTER - | | | | | | LABORATORY | | + + + + + + + + | Specimen | + + | Tissue - Entire | | dorsal digital | | nerves of lateral | | hallux and medial | | second toe (body | | structure) | + + + + + + + | Performing | Address | City/State/Zipcode | Phone Number | | Organization | | | | + + + + + | [facility] | [address] | [place], [place] | [phone] | | [facility] | | [address] | | | - LABORATORY | | | | + + + + + Culture, Wound, Smear (02/17/2019 12:40 PM PDT) + + + + + + | Component | Value | Ref Range | Performed | Pathologist | | | | | At | Signature | + + + + + + | Culture | 4+ Staphylococcus aureus | | [facility] | | | | | [...] + + | Gram Stain | 1+ Epithelial cells | | [facility] | | | Result | | | [facility] | | | | | | [facility] | | | | | | CENTER - | | | | | | LABORATORY | | + + + + + + | Gram Stain | 3+ Gram positive cocci | | [facility] | | | Result | | | [facility] | | | [facility] | | MEDICAL | | | | | | CENTER - | | | | | | LABORATORY | | + + + + + + + + | Specimen | + + | Tissue - Entire | | dorsal digital | | nerves of lateral | | hallux and medial | | second toe (body | | structure) | + + + + +--------+ + | Organism | Antibiotic | Method | Susceptibility | + + +--------+ + | Staphylococcus | Ciprofloxacin | | <=0.5 ug/mL: | | aureus | | | Sensitive | + + +--------+ + | Staphylococcus | Clindamycin | | 0.25 ug/mL: | | aureus | | | Sensitive | + + +--------+ + | Staphylococcus | Erythromycin | | <=0.25 ug/mL: | | aureus | | | Sensitive | + + +--------+ + | Staphylococcus | Gentamicin | | <=0.5 ug/mL: | | aureus | | | Sensitive | + + +--------+ + | Staphylococcus | Levofloxacin | | <=0.12 ug/mL: | | aureus | | | Sensitive | + + +--------+ + | Staphylococcus | Linezolid | | 2 ug/mL: Sensitive | | aureus | | | | + + +--------+ + | Staphylococcus | Minocycline | | <=0.5 ug/mL: | | aureus | | | Sensitive | + + +--------+ + | Staphylococcus | Moxifloxacin | | <=0.25 ug/mL: | | aureus | | | Sensitive | + + +--------+ + | Staphylococcus | Oxacillin | | <=0.25 ug/mL: | | aureus | | | Sensitive | + + +--------+ + | Staphylococcus | Penicillin G | | Resistant | | aureus | | | | + + +--------+ + | Staphylococcus | Rifampin | | <=0.5 ug/mL: | | aureus | | | Sensitive | + + +--------+ + | Staphylococcus | Tetracycline | | <=1 ug/mL: | | aureus | | | Sensitive | + + +--------+ + | Staphylococcus | Tigecycline | | <=0.12 ug/mL: | | aureus | | | Sensitive | + + +--------+ + | Staphylococcus | Trimethoprim + | | <=10 ug/mL: | | aureus | Sulfamethoxazole | | Sensitive | + + +--------+ + | Staphylococcus | Vancomycin | | 1 ug/mL: Sensitive | | aureus | | | | + + +--------+ + + + + + + | Performing | Address | City/State/Zipcode | Phone Number | | Organization | | | | + + + + + | [facility] | [address] | [place] | [phone] | | [facility] | | [address] | | | - LABORATORY | | | | + + + + + POC Glucose (02/17/2019 11:38 AM PDT) + +---------+ + + + | Component | Value | Ref Range | Performed | Pathologist | | | | | At | Signature | + +---------+ + + + | Glucose, | 110 (H) | 70 - 109 mg/dL | [facility] | | | POC | | | [facility] | | | | | | [...] + | [facility] | [address] | [place] | [phone] | | [facility] | | [address] | | | - LABORATORY | | | | + + + + + POC Glucose (02/17/2019 6:45 AM PDT) + +---------+ + + + | Component | Value | Ref Range | Performed | Pathologist | | | | | At | Signature | + +---------+ + + + | Glucose, | 117 (H) | 70 - 109 mg/dL | [...] [address] | [place] | [phone] | | [facility] | | [address] | | | - LABORATORY | | | | + + + + + Hemoglobin A1C (02/17/2019 4:26 AM PDT) + +---------+ + + + | Component | Value | Ref Range | Performed | Pathologist | | | | | At | Signature | + +---------+ + + + | Hemoglobin | 6.3 (H) | 4.3 - 6.0 % | [facility] | | | A1c | | | [facility] | | | | | [facility] | | | | | | [facility] - | | | | | | LABORATORY | | + +---------+ + + + | Estimated | 134 | mg/dL | [facility] | | | Average | | | [facility] | | | Glucose | | | [...] + | [facility] | [address] | [place] | [phone] | | [facility] | | [address] | | | - LABORATORY | | | | + + + + + Hepatic Function Panel (02/17/2019 4:26 AM PDT) + +---------+ + + + | Component | Value | Ref Range | Performed | Pathologist | | | | | At | Signature | + +---------+ + + + | Bilirubin | 0.3 | 0.3 - 1.2 mg/dL | [facility] | | | Total | | | [facility] | | | | | | [facility] | | | | | | CENTER - | | | | | | LABORATORY | | + +---------+ + + + | Total | 5.6 (L) | 5.7 - 8.2 g/dL | [facility] | | | Protein | | | [facility] | | | | | | [facility] | | | | | | C[facility] - | | | | | | LABORATORY | | + +---------+ + + + | Albumin | 3.2 | 3.2 - 4.8 g/dL | [facility] | | | | | | [facility] | | | [facility] | [facility] | | | | | | C[facility] - | | | | | | LABORATORY | | + +---------+ + + + | AST | 17 | 0 - 34 U/L | [facility] | | | | | | [facility] | | | | | | [facility] | | | | | | CENTER - | | | | | | LABORATORY | | + +---------+ + + + | ALT | 8 (L) | 10 - 49 U/L | [facility] | | | | | | [facility] | | | | | | [facility] | | | | | | CENTER - | | | | | | LABORATORY | | + +---------+ + + + | Alkaline | 96 | 46 - 116 U/L | [facility] | | | Phosphatase | | | [facility] | | | | | | [facility] | | | | | | CENTER - | | | | | | LABORATORY | | + +---------+ + + + | Globulin | 2.4 | 2.1 - 3.8 g/dL | [facility] | | | | | | [facility] | | | | | | [facility] | | | | | | C[facility] - | | | | | | LABORATORY | | + +---------+ + + + | Albumin/Ivon | 1.3 | 0.8 - 1.9 | [facility] | | | bulin Ratio | | | [facility] | | | | | | [facility] | | | | | | CENTER - | | | | | | LABORATORY | | + +---------+ + + + | Bilirubin, | 0.20 | 0.00 - 0.30 | [facility] | | | Direct | | mg/dl | [facility] | | | | [address] | [place] | [phone] | | [facility] | | [address] | | | - LABORATORY | | | | + + + + + Radhaime INR (02/17/2019 4:26 AM PDT) + + + + + + | Component | Value | Ref Range | Performed | Pathologist | | | | | At | Signature | + + + + + + | Prothrombin | 13.6 | 11.3 - 13.9 | [facility] | | | Time | | seconds | [facility] | | | | [...] + + | [facility] | [address] | [place] | [phone] | | [facility] | | [address] | | | - LABORATORY | | | | + + + + + Magnesium (02/17/2019 4:26 AM PDT) + +-------+ + + + | Component | Value | Ref Range | Performed | Pathologist | | | | | At | Signature | + +-------+ + + + | Magnesium | 2.0 | 1.6 - 2.6 mg/dL | [facility] [...] [address] | [place] | [phone] | | [facility] | | [address] | | | - LABORATORY | | | | + + + + + CBC no Differential (02/17/2019 4:26 AM PDT) + + + + + + | Component | Value | Ref Range | Performed | Pathologist | | | | | At | Signature | + + + + + + | WBC | 7.6 | 4.0 - 11.0 K/uL | [facility] | | | | | | [facility] | | | | | | [facility] | | | | | | CENTER - | | | | | | LABORATORY | | + + + + + + | RBC | 4.52 | 4.30 - 5.70 | [facility] | | | | | M/uL | [facility] | | | | | | MEDICAL | | | | | | CENTER - | | | | | | LABORATORY | | + + + + + + | Hemoglobin | 14.5 | 13.5 - 18.0 | [facility] | | | | | g/dL | [facility] | | | | | | MEDICAL | | | | | | CENTER - | | | | | | LABORATORY | | + + + + + + | Hematocrit | 41.8 | 40.0 - 51.0 % | [facility] | | | | | | [facility] | | | | | | [facility]ICAL | | | | | | CENTER - | | | | | | LABORATORY | | + + + + + + | MCV | 92.5 | 83.0 - 101.0 fL | [facility] | | | | | | [facility] | | | [facility] | | [facility]ICAL | | | | | | CENTER - | | | | | | LABORATORY | | + + + + + + | MCH | 32.1 | 28.0 - 35.0 pg | [facility] | | | | | | [facility] | | | | | | MEDICAL | | | | | | CENTER - | | | | | | LABORATORY | | + + + + + + | MCHC | 34.7 | 32.0 - 36.0 | [facility] | | | | | g/dL | [facility] | | | | | | MEDICAL | | | | | | CENTER - | | | | | | LABORATORY | | + + + + + + | RDW-CV | 14.1 | <15.0 % | [facility] | | | | | | [facility] | | | | | | [facility]ICAL | | | | | | CENTER - | | | | | | LABORATORY | | + + + + + + | RDW-SD | 48.3 (H) | 35.1 - 46.3 fL | [facility] | | | | | | [facility] | | | | | | MEDICAL | | | | | | CENTER - | | | | | | LABORATORY | | + + + + + + | Platelet | 321 | 140 - 440 K/uL | [facility] | | | Count | | | [facility] | | | | | | MEDICAL | | | | | | CENTER - | | | | | | LABORATORY | | + + + + + + | MPV | 11.6 | 6.5 - 12.4 fL | [facility] [...] | | nRBC | | K/uL | [facility] | [...] [address] | [place] | [phone] | | [facility] | | [address] | | | - LABORATORY | | | | + + + + + Basic Metabolic Panel (02/17/2019 4:26 AM PDT) + + + + + [...] + + | K | 4.4 | 3.4 - 5.1 | [facility] | | | | | mmol/L | [facility] | | | | [...] + + + | Anion Gap | 2 (L) | 3 - 16 mmol/L | [facility] | | | | | | [facility] | | | | | | MEDICAL | | | | | | CENTER - | | | | | | LABORATORY | | + + + + + + | Glucose | 117 (H) | 60 - 106 mg/dL | [...] + + + + | Creatinine | 0.83 | 0.70 - 1.30 | [facility] | | | | | mg/dL | [facility] | | | | | | MEDICAL | | | | | | CENTER - | | | | | | LABORATORY | | + + + + + + | eGFR if not | >60Comment: GLOMERULAR | >=60 | [facility] | | | | FILTRATION | mL/min/1.73m2 | [facility] | | | CYPRIOT | RATE,ESTIMATED | | MEDICAL | | | | mL/min/1.63x8Rnbh than | | CENTER - | | [...] + + + | Calcium | 8.4 (L) | 8.7 - 10.4 | [facility] | | | | | mg/dL | [facility] | | | | | | MEDICAL | | | | | | CENTER - | | | | | | LABORATORY | | + + + + + + | BUN/Creatin | 10.8 | | [facility] | | | ine [...] + | [facility] | [address] | [place] | [phone] | | [facility] | | [address] | | | - LABORATORY | | | | + + + + + Basic Metabolic Panel (02/16/2019 10:47 PM PDT) + + + + + [...] + + | K | 4.3 | 3.4 - 5.1 | [facility] | [...] + + + | Anion Gap | 2 (L) | 3 - 16 mmol/L | [facility] | | | | | | [facility] | | | | | | MEDICAL | | | | | | CENTER - | | | | | | LABORATORY | | + + + + + + | Glucose | 102 | 60 - 106 mg/dL | [facility] [...] + + + + | Creatinine | 0.86 | 0.70 - 1.30 | [facility] | [...] mL/min/1.73m2 | [facility] | | | CYPRIOT | RATE,ESTIMATED | | MEDICAL | | | | mL/min/1.55u0Ucgq than | | CENTER - | | [...] + + + + | Calcium | 8.5 (L) | 8.7 - 10.4 | [facility] | | | | | mg/dL | [facility] | | | | | | MEDICAL | | | | | | CENTER - | | | | | | LABORATORY | | + + + + + + | BUN/Creatin | 9.3 | | [facility] | | | ine Ratio | | | [facility] | | | | [...] [address] | [place] | [phone] | | [facility] | | [address] | | | - LABORATORY | | | | + + + + + POC Glucose (02/16/2019 7:46 PM PDT) + +---------+ + + + | Component | Value | Ref Range | Performed | Pathologist | | | | | At | Signature | + +---------+ + + + | Glucose, | 124 (H) | 70 - 109 mg/dL | [...] + | [facility] | [address] | [place] | [phone] | | [facility] | | [address] | | | - LABORATORY | | | | + + + + + POC Glucose (02/16/2019 6:01 PM PDT) + +-------+ + + + | Component | Value | Ref Range | Performed | Pathologist | | | | | At | Signature | + +-------+ + + + | Glucose, | 99 | 70 - 109 mg/dL | [facility] [...] + | [facility] | [address] | [place] | [phone] | | [facility] | | [address] | | | - LABORATORY | | | | + + + + + Basic Metabolic Panel (02/16/2019 5:53 PM PDT) + + + + + + | Component | Value | Ref Range | Performed | Pathologist | | | | | At | Signature | + + + + + + | Na | 132 (L) | 136 - 145 | [facility] | | | | | mmol/L | [facility] | | | | | | MEDICAL | | | | | | CENTER - | | | | | | LABORATORY | | + + + + + + | K | 5.1 | 3.4 - 5.1 | [facility] | | | | | mmol/L | [facility] | | | | | | MEDICAL | | | | | | CENTER - | | | | | | LABORATORY | | + + + + + + | Cl | 107 | 98 - 107 mmol/L | [facility] | | | | | | [facility] | | | | | | MEDICAL | | | | | | CENTER - | | | | | | LABORATORY | | + + + + + + | CO2 | 20 | 20 - 31 mmol/L | [facility] [...] + + + + | Glucose | 103 | 60 - 106 mg/dL | [facility] | | | | | | [facility] | | | | | | MEDICAL | | | | | | CENTER - | | | | | | LABORATORY | | + + + + + + | BUN | 9 | 9 - 23 mg/dL | [facility] | | | | | | [facility] | | | | | | MEDICAL | | | | | | CENTER - | | | | | | LABORATORY | | + + + + + + | Creatinine | 0.95 | 0.70 - 1.30 | [facility] | | | | | mg/dL | [facility] | | | | | | MEDICAL | | | | | | CENTER - | | | | | | LABORATORY | | + + + + + + | eGFR if not | >60Comment: GLOMERULAR | >=60 | [facility] | | | | FILTRATION | mL/min/1.73m2 | [facility] | | | CYPRIOT | RATE,ESTIMATED | | MEDICAL | | | | mL/min/1.43k6Hbip than | | CENTER - | | [...] + + + + | Calcium | 8.9 | 8.7 - 10.4 | [facility] | | | | | mg/dL | [facility] | | | | | | MEDICAL | | | | | | CENTER - | | | | | | LABORATORY | | + + + + + + | BUN/Creatin | 9.5 | | [facility] | | | ine Ratio | | | . [facility] | | | | | | [...] + + | [facility] | [address] | [place] | [phone] | | [facility] | | [address] | | | - LABORATORY | | | | + + + + + Urinalysis with Microscopic with Culture if Indicated (02/16/2019 2:51 PM PDT) + + + + + + | Component | Value | Ref Range | Performed | Pathologist | | | | | At | Signature | + + + + + + | Color, | Yellow | Light Yellow, | [facility] | | | Urine | | Yellow, Straw | [facility] | | | | | | MEDICAL | | | | | | CENTER - | | | | | | LABORATORY | | + + + + + + | Clarity | Clear | Clear | [facility] | | | | | | [facility] | | | | | | MEDICAL | | | | | | CENTER - | | | | | | LABORATORY | | + + + + + + | pH, Urine | 6.0 | 5.0 - 8.0 | [facility] | | | | | | [facility] | | | | | | MEDICAL | | | | | | CENTER - | | | | | | LABORATORY | | + + + + + + | Specific | 1.005 | 1.001 - 1.030 | [facility] | | | [place], | | | [facility] | | | Urine | | | MEDICAL | | | | | | CENTER - | | | | | | LABORATORY | | + + + + + + | Protein, | Negative | Negative | [facility] | | | Urine | | | [facility] | | | | | | MEDICAL | | | | | | CENTER - | | | | | | LABORATORY | | + + + + + + | Blood, | Negative | Negative | [facility] | | | Urine | | | [facility] | | | | | | MEDICAL | | | | | | CENTER - | | | | | | LABORATORY | | + + + + + + | Glucose, | Negative | Negative | [facility] | | | Urine | | | [facility] | | | | | | MEDICAL | | | | | | CENTER - | | | | | | LABORATORY | | + + + + + + | Ketones, | Negative | Negative | [facility] | | | Urine | | | [facility] | | | | | | MEDICAL | | | | | | CENTER - | | | | | | LABORATORY | | + + + + + + | Bilirubin, | Negative | Negative | [facility] | | | Urine | | | [facility] | | | | | | MEDICAL | | | | | | CENTER - | | | | | | LABORATORY | | + + + + + + | Nitrite, | Negative | Negative | [facility] | | | Urine | | | [facility] | | | | | | MEDICAL | | | | | | CENTER - | | | | | | LABORATORY | | + + + + + + | Leukocyte | Trace (A) | Negative | [facility] | | | Esterase, | | | [facility] | | | Urine | | | MEDICAL | | | | | | CENTER - | | | | | | LABORATORY | | + + + + + + | Urobilinoge | Negative | 0.2 mg/dL, 1.0 | [facility] | | | n, Urine | | mg/dL, Negative | [facility] | | | | | | MEDICAL | | | | | | CENTER - | | | | | | LABORATORY | | + + + + + + | White Blood | 0-2 | 0 - 2 /HPF | [facility] | | | Cells, | | | [facility] | | | Urine | | | MEDICAL | | | | | | CENTER - | | | | | | LABORATORY | | + + + + + + | Red Blood | 0-2 | 0 - 2 /HPF | [facility] | | | Cells, | | | [facility] | | | Urine | | | MEDICAL | | | | | | CENTER - | | | | | | LABORATORY | | + + + + + + | Squamous | 2-5 (A) | 0 - 2 /LPF | [facility] | | | Epithelial | | | [facility] | | | Cells, | | | MEDICAL | | | Urine | | | CENTER - | | | | | | LABORATORY | | + + + + + + | Bacteria, | Negative | Negative /HPF | [facility] | | | Urine | | | [facility] | | | | | | MEDICAL | | | | | | CENTER - | | | | | | LABORATORY | | + + + + + + | Urine | Urine Culture Not | | [facility] | | | Comment | Indicated | | [facility] | | | | | | MEDICAL | | | | | | CENTER - | | | | | | LABORATORY | | + + + + + + + + | Specimen | + + | Urine - Urine | | specimen obtained by | | clean catch | | procedure (specimen) | + + + + + + + | Performing | Address | City/State/Zipcode | Phone Number | | Organization | | | | + + + + + | [facility] | [address] | [place] | [phone] | | [facility] | | [address] | | | - LABORATORY | | | | + + + + + XR Foot Left 3 + Vw (02/16/2019 1:11 PM PDT) + + | Specimen | + + | | + + + + + | Narrative | Performed At | + + + | XR FOOT LEFT 3 + VW 02/16/2019 1:11 PM HISTORY: FOOT WOUND | [facility] | | CELLULITIS. COMPARISON: None. FINDINGS: Resection changes are | | | again seen to the level of the proximal first metatarsal diaphysis. | | | Mild to moderate diffuse forefoot soft tissue swelling. Small plantar | | | calcaneal and either side. No suspicious ulceration or bony | | | destruction. No erosive changes. IMPRESSION - Resection changes | | | are again seen to the level of the proximal first metatarsal | | | diaphysis. Mild to moderate diffuse forefoot soft tissue swelling | | | possibly representing cellulitis. No convincing radiographic | | | evidence for osteomyelitis or definitive ulceration at this time. | | | Dictated and Signed by: Jaxson Nettles MD Electronically signed: | | | 02/16/2019 2:51 PM | | + + + + + | Procedure Note | + + | Gordy, Rad Results In - 02/16/2019 2:54 PM PDT XR FOOT LEFT 3 + VW 02/16/2019 1:11 PM | | | | HISTORY: FOOT WOUND | | CELLULITIS. | | | | COMPARISON: None. | | | | FINDINGS: | | Resection changes are again seen to the level of the proximal first metatarsal | | diaphysis. Mild to moderate diffuse forefoot soft tissue swelling. Small plantar | | calcaneal and either side. No suspicious ulceration or bony destruction. No | | erosive changes. | | | | IMPRESSION - | | Resection changes are again seen to the level of the proximal first metatarsal | | diaphysis. | | | | Mild to moderate diffuse forefoot soft tissue swelling possibly representing | | cellulitis. | | | | No convincing radiographic evidence for osteomyelitis or definitive ulceration | | at this time. | | | | Dictated and Signed by: Jaxson Nettles MD | | Electronically signed: 02/16/2019 2:51 PM | + + + +---------+ + + | Performing | Address | City/State/Zipcode | Phone Number | | Organization | | | | + +---------+ + + | [facility] | | | | + +---------+ + + Culture, Blood (02/16/2019 1:06 PM PDT) + + + + + [...] [facility] | [address] | [place], [place] | [phone] | | [facility] | | [address] | | | - LABORATORY | | | | + + + + + Culture, Wound, Smear (02/16/2019 12:40 PM PDT) + + + + + + | Component | Value | Ref Range | Performed | Pathologist | | | | | At | Signature | + + + + + + | Culture | 4+ Staphylococcus aureus | | [facility] | | | | | | [facility] | | | | | | MEDICAL | | | | | | CENTER - | | | | | | LABORATORY | | + + + + + + | Gram Stain | 3+ White Blood Cells | | [facility] | | | Result | | | [facility] | | | | | | MEDICAL | | | | | | CENTER - | | | | | | LABORATORY | | + + + + + + | Gram Stain | 2+ Gram positive cocci | | [facility] | | | Result | in clusters | | [facility] | | | | | | MEDICAL | | | | | | CENTER - | | | | | | LABORATORY | | + + + + + + + + | Specimen | + + | Tissue - Entire | | dorsal digital | | nerves of lateral | | hallux and medial | | second toe (body | | structure) | + + + + +--------+ + | Organism | Antibiotic | Method | Susceptibility | + + +--------+ + | Staphylococcus | Ciprofloxacin | | <=0.5 ug/mL: | | aureus | | | Sensitive | + + +--------+ + | Staphylococcus | Clindamycin | | 0.25 ug/mL: | | aureus | | | Sensitive | + + +--------+ + | Staphylococcus | Erythromycin | | <=0.25 ug/mL: | | aureus | | | Sensitive | + + +--------+ + | Staphylococcus | Gentamicin | | <=0.5 ug/mL: | | aureus | | | Sensitive | + + +--------+ + | Staphylococcus | Levofloxacin | | <=0.12 ug/mL: | | aureus | | | Sensitive | + + +--------+ + | Staphylococcus | Linezolid | | 2 ug/mL: Sensitive | | aureus | | | | + + +--------+ + | Staphylococcus | Minocycline | | <=0.5 ug/mL: | | aureus | | | Sensitive | + + +--------+ + | Staphylococcus | Moxifloxacin | | <=0.25 ug/mL: | | aureus | | | Sensitive | + + +--------+ + | Staphylococcus | Oxacillin | | <=0.25 ug/mL: | | aureus | | | Sensitive | + + +--------+ + | Staphylococcus | Penicillin G | | Resistant | | aureus | | | | + + +--------+ + | Staphylococcus | Rifampin | | <=0.5 ug/mL: | | aureus | | | Sensitive | + + +--------+ + | Staphylococcus | Tetracycline | | <=1 ug/mL: | | aureus | | | Sensitive | + + +--------+ + | Staphylococcus | Tigecycline | | <=0.12 ug/mL: | | aureus | | | Sensitive | + + +--------+ + | Staphylococcus | Trimethoprim + | | <=10 ug/mL: | | aureus | Sulfamethoxazole | | Sensitive | + + +--------+ + | Staphylococcus | Vancomycin | | 1 ug/mL: Sensitive | | aureus | | | | + + +--------+ + + + + + + | Performing | Address | City/State/Zipcode | Phone Number | | Organization | | | | + + + + + | [facility] | [address] | [place] | [phone] | | [facility] | | [address] | | | - LABORATORY | | | | + + + + + C-Reactive Protein (02/16/2019 12:40 PM PDT) + + + + + + | Component | Value | Ref Range | Performed | Pathologist | | | | | At | Signature | + + + + + + | CRP | 80.90 (H) | <10.00 mg/L | [facility] | | | | | | [facility] [...] [address] | [place] | [phone] | | [facility] | | [address] | | | - LABORATORY | | | | + + + + + Sedimentation Rate (02/16/2019 12:40 PM PDT) + +--------+ + + + | Component | Value | Ref Range | Performed | Pathologist | | | | | At | Signature | + +--------+ + + + | Erythrocyte | 45 (H) | <20 mm/hr | [facility] | | | | | | [facility] | | | Sedimentati | | | MEDICAL | | | on Rate | | | CENTER - | | | | | | LABORATORY | | + +--------+ + + + + + | Specimen | + + | Blood | + + + + + + + | Performing | Address | City/State/Zipcode | Phone Number | | Organization | | | | + + + + + | [facility] | [address] | [place] | [phone] | | [facility] | | [address] | | | - LABORATORY | | | | + + + + + Culture, Blood (02/16/2019 12:40 PM PDT) + + + + + + | Component | Value | Ref Range | Performed | Pathologist | | | | | At | Signature | + + + + + + | Culture | No growth after 5 days | | [facility] | | | | incubation. | | [...] [address] | [place] | [phone] | | [facility] | | [address] | | | - LABORATORY | | | | + + + + + Basic Metabolic Panel (02/16/2019 12:40 PM PDT) + + + + + + | Component | Value | Ref Range | Performed | Pathologist | | | | | At | Signature | + + + + + + | Na | 130 (L) | 136 - 145 | [facility] | | | | | mmol/L | [facility] | | | | | | MEDICAL | | | | | | CENTER - | | | | | | LABORATORY | | + + + + + + | K | 5.3 (H) | 3.4 - 5.1 | [facility] | | | | | mmol/L | [facility] | | | | | | MEDICAL | | | | | | CENTER - | | | | | | LABORATORY | | + + + + + + | Cl | 101 [...] + + + | Anion Gap | 6 | 3 - 16 mmol/L | [facility] | | | | | | [facility] | | | | | | MEDICAL | | | | | | CENTER - | | | | | | LABORATORY | | + + + + + + | Glucose | 117 (H) | 60 - 106 mg/dL | [facility] | | | | | | [facility] | | | | | | MEDICAL | | | | | | CENTER - | | | | | | LABORATORY | | + + + + + + | BUN | 9 | 9 - 23 mg/dL | [facility] [...] | | | FILTRATION | mL/min/1.73m2 | [facility] | | | CYPRIOT | RATE,ESTIMATED | | MEDICAL | | | | mL/min/1.44u2Hkdy than | | CENTER - | | [...] + + + + | Calcium | 9.4 | 8.7 - 10.4 | [facility] | | | | | mg/dL | [facility] | | | | | | MEDICAL | | | | | | CENTER - | | | | | | LABORATORY | | + + + + + + | BUN/Creatin | 9.7 | | [facility] | | | ine [...] + | [facility] | [address] | [place] | [phone] | | [facility] | | [address] | | | - LABORATORY | | | | + + + + + CBC with Differential (02/16/2019 12:40 PM PDT) + + + + + + | Component | Value | Ref Range | Performed | Pathologist | | | | | At | Signature | + + + + + + | WBC | 10.1 | 4.0 - 11.0 K/uL | [facility] | | | | | | [facility] | | | | | | MEDICAL | | | | | | CENTER - | | | | | | LABORATORY | | + + + + + + | RBC | 5.05 | 4.30 - 5.70 | [facility] | | | | | M/uL | [facility] | | | | | | MEDICAL | | | | | | CENTER - | | | | | | LABORATORY | | + + + + + + | Hemoglobin | 16.0 | 13.5 - 18.0 | [facility] | | | | | g/dL | [facility] | | | | | | MEDICAL | | | | | | CENTER - | | | | | | LABORATORY | | + + + + + + | Hematocrit | 46.0 | 40.0 - 51.0 % | [facility] | | | | | | [facility] | | | | | | MEDICAL | | | | | | CENTER - | | | | | | LABORATORY | | + + + + + + | MCV | 91.1 | 83.0 - 101.0 fL | [facility] | | | | | | [facility] | | | | | | MEDICAL | | | | | | CENTER - | | | | | | LABORATORY | | + + + + + + | MCH | 31.7 | 28.0 - 35.0 pg | [facility] | | | | | | [facility] | | | | | | MEDICAL | | | | | | CENTER - | | | | | | LABORATORY | | + + + + + + | MCHC | 34.8 | 32.0 - 36.0 | [facility] | | | | | g/dL | [facility] | | | | | | [facility] | | | | | | CENTER - | | | | | | LABORATORY | | + + + + + + | RDW-CV | 13.7 | <15.0 % | [facility] | | | | | | [facility] | | | | | | [facility] | | | | | | [facility] - | | | | | | LABORATORY | | + + + + + + | RDW-SD | 46.2 | 35.1 - 46.3 fL | [facility] | | | | | | [facility] | | | | | | [facility] | | | | | | [facility] - | | | | | | LABORATORY | | + + + + + + | Platelet | 361 | 140 - 440 K/uL | [facility] | | | Count | | | [facility] | | | | | | [facility] | | | | | | [facility] - | | | | | | LABORATORY | | + + + + + + | MPV | 11.7 | 6.5 - 12.4 fL | [facility] | | | | | | [facility] | | | | | | [facility] | | | | | | [facility] - | | | | | | LABORATORY | | + + + + + + | % | 74.2 | 45.0 - 82.0 % | [facility] | | | Neutrophils | | | [facility] | | | | | | [facility] | | | | | | CENTER - | | | | | | LABORATORY | | + + + + + + | % | 17.7 (L) | 20.0 - 45.0 % | [facility] | | | Lymphocytes | | | [facility] | | | | | | [facility] | | | | | | CENTER - | | | | | | LABORATORY | | + + + + + + | % Monocytes | 6.5 | 4.0 - 12.0 % | [facility] | | | | | | [facility] | | | | | | [facility] | | | | | | [facility] - | | | | | | LABORATORY | | + + + + + + | % | 0.1 | 0.0 - 5.0 % | [facility] | | | Eosinophils | | | [facility] | | | | | | [facility]ICAL | | | | | | CENTER - | | | | | | LABORATORY | | + + + + + + | % Basophils | 0.9 | 0.0 - 1.0 % | [facility] | | | | | | [facility] | | | | | | [facility] | | | | | | [facility] - | | | | | | LABORATORY | | + + + + + + | % Immature | 0.6 (H)Comment: | 0.0 - 0.4 % | [facility] | | | Granulocyte | Preliminary studies have | | [facility] | | | s | indicated the IG% | | MEDICAL | | | | and/or IG# show promise | | CENTER - | | | | as an early indicator | | LABORATORY | | | | for infection. | | | | + + + + + + | Absolute | 7.52 | 1.80 - 8.50 | [facility] | | | Neutrophils | | K/uL | [facility] | | | | | | MEDICAL | | | | | | CENTER - | | | | | | LABORATORY | | + + + + + + | Absolute | 1.79 | 0.60 - 3.20 | [facility] | | | Lymphocytes | | K/uL | [facility] | | | | | | [facility]ICAL | | | | | | CENTER - | | | | | | LABORATORY | | + + + + + + | Absolute | 0.66 | 0.00 - 1.00 | [facility] | | | Monocytes | | K/uL | [facility] | | | | | | [facility] | | | | | | CENTER - | | | | | | LABORATORY | | + + + + + + | Absolute | 0.01 | 0.00 - 0.40 | [facility] | | | Eosinophils | | K/uL | [facility] | | | | | | [facility]ICAL | | | | | | CENTER - | | | | | | LABORATORY | | + + + + + + | Absolute | 0.09 | 0.00 - 0.10 | [facility] | | | Basophils | | K/uL | [facility] | | | | | | [facility]ICAL | | | | | | CENTER - | | | | | | LABORATORY | | + + + + + + | Absolute | 0.06 (H) | 0.00 - 0.03 | [facility] [...] [facility] | [address] | [place] | [phone] | | [facility] | | [id number] | | | - LABORATORY | | | | + + + + + documented in this encounter Visit Diagnoses Not on filedocumented in this encounter Administered Medications + +--------+ +-------+------+------+ | Medication Order | MAR | Action | Dose | Rate | Site | | | Action | Date | | | | + +--------+ +-------+------+------+ | aspirin chewable tablet 81 mg | Given | 02/19/20 | 81 mg | | | | 81 mg, Oral, DAILY, First dose on | | 19 9:08 | | | | | 02/18/19 at 0900 | | AM PDT | | | | + +--------+ +-------+------+------+ +---+---+ | | | +---+---+ + +-------+ +-------+---+---+ | atorvaSTATin (LIPITOR) tablet | Given | 02/18/20 | 10 mg | | | | 10 mg 10 mg, Oral, NIGHTLY, | | 19 8:37 | | | | | First dose on [facility] 02/16/19 at 2100 | | PM PDT | | | | + +-------+ +-------+---+---+ +-------+ +-------+---+---+ | Given | 02/17/20 | 10 mg | | | | | 19 8:01 | | | | | | PM PDT | | | | +-------+ +-------+---+---+ +---+---+ | | | +---+---+ + +-------+ +-------+---+---+ | bupivacaine (MARCAINE) 0.5% | Given | 02/18/20 | 5 mLs | | | | injection PRN, Starting Fri | | 19 12:25 | | | | | 02/17/19 at 1225, Intra-op | | PM PDT | | | | + +-------+ +-------+---+---+ +---+---+ | | | +---+---+ + +---------+ +-----+-------+---+ | cefTRIAXone (ROCEPHIN) 1 g in | New Bag | 02/19/20 | 1 g | 100 | | | sodium chloride 0.9% 50 mL IVPB | | 19 11:30 | | mL/hr | | | 1 g, Intravenous, Administer over | | AM PDT | | | | | 30 Minutes, EVERY 24 HOURS | | | | | | | (Daily), First dose on Nel[place] | | | | | | | 02/16/19 at 1800, Activate system | | | | | | | and mix before use., Indications: | | | | | | | Osteomyelitis | | | | | | + +---------+ +-----+-------+---+ +---------+ +-----+-------+---+ | New Bag | 02/18/20 | 1 g | 100 | | | | 19 8:58 | | mL/hr | | | | AM PDT | | | | +---------+ +-----+-------+---+ | New Bag | 02/17/20 | 1 g | 100 | | | | 19 6:38 | | mL/hr | | | | PM PDT | | | | +---------+ +-----+-------+---+ +---+---+ | | | +---+---+ + +-------+ +-------+---+---+ | clopidogrel (PLAVIX) tablet 75 | Given | 02/19/20 | 75 mg | | | | mg 75 mg, Oral, DAILY, First | | 19 9:08 | | | | | dose (after last modification) on | | AM PDT | | | | | 02/17/19 at 1800 | | | | | | + +-------+ +-------+---+---+ +-------+ +-------+---+---+ | Given | 02/18/20 | 75 mg | | | | | 19 6:09 | | | | | | PM PDT | | | | +-------+ +-------+---+---+ +---+---+ | | | +---+---+ + +-------+ +------+---+---+ | cyclobenzaprine (FLEXERIL) | Given | 02/18/20 | 5 mg | | | | tablet 5 mg 5 mg, Oral, EVERY 8 | | 19 9:49 | | | | | HOURS PRN, Muscle spasms, | | PM PDT | | | | | Starting [place] 02/16/19 at 1853 | | | | | | + +-------+ +------+---+---+ +-------+ +------+---+---+ | Given | 02/17/20 | 5 mg | | | | | 19 9:09 | | | | | | PM PDT | | | | +-------+ +------+---+---+ + +---+ | | | + +---+ | dextrose 10% (D10W) infusion | | | at 50 mL/hr, Intravenous, | | | CONTINUOUS PRN, hypoglycemia, | | | Starting [place] 02/16/19 at 1731, | | | Start infusion if unable [...] Blood Sugar, Starting [place] | | | 02/16/19 at 1731, For blood | | | glucose 50-69 mg/dl - give 12.5 g | | | For blood glucose less than 50 | | | mg/dl - give 25 g, | | + +---+ | | | + +---+ + +-------+ +--------+---+---+ | gabapentin (NEURONTIN) capsule | Given | 02/19/20 | 600 mg | | | | 600 mg 600 mg, Oral, 3 TIMES | | 19 9:08 | | | | | DAILY, First dose on Wed02/16/19 | | AM PDT | | | | | at 2100 | | | | | | + +-------+ +--------+---+---+ +-------+ +--------+---+---+ | Given | 02/18/20 | 600 mg | | | | | 19 8:36 | | | | | | PM PDT | | | | +-------+ +--------+---+---+ | Given | 02/18/20 | 600 mg | | | | | 19 8:58 | | | | | | AM PDT | | | | +-------+ +--------+---+---+ +---+---+ | | | +---+---+ + +-------+ +--------+---+ + | heparin 5,000 units/mL | Given | 02/19/20 | 5,000 | | Abdomen- | | injection 5,000 Units 5,000 | | 19 9:08 | Units | | LLQ | | Units, Subcutaneous, EVERY 12 | | AM PDT | | | | | HOURS (2 times per day), First | | | | | | | dose on Wed02/17/19 at 0900, Hold | | | | | | | 02/17/19 morning dose for preop, | | | | | | + +-------+ +--------+---+ + +-------+ +--------+---+ + | Given | 02/18/20 | 5,000 | | Abdomen- | | | 19 8:36 | Units | | LLQ | | | PM PDT | | | | +-------+ +--------+---+ + | Given | 02/18/20 | 5,000 | | Abdomen- | | | 19 8:59 | Units | | LLQ | | | AM PDT | | | | +-------+ +--------+---+ + +---+---+ | | | +---+---+ + +-------+ + +---+---+ | HYDROcodone-acetaminophen | Given | 02/19/20 | 1 tablet | | | | (NORCO) 7.5-325 mg per tablet 1 | | 19 5:21 | | | | | tablet 1 tablet, Oral, EVERY 6 | | AM PDT | | | | | HOURS PRN, Moderate Pain, | | | | | | | Starting [facility] 02/16/19 at 1731 | | | | | | + +-------+ + +---+---+ +-------+ + +---+---+ | Given | 02/18/20 | 1 tablet | | | | | 19 6:08 | | | | | | PM PDT | | | | +-------+ + +---+---+ | Given | 02/18/20 | 1 tablet | | | | | 19 2:01 | | | | | | AM PDT | | | | +-------+ + +---+---+ + +---+ | | | + +---+ | insulin glargine (LANTUS | | | SOLOSTAR) injection (pen) 7 Units | | | 7 Units (rounded from 7.17 | | | Units = 0.1 Units/kg/day | | | 71.7 kg), Subcutaneous, DAILY | | | EVENING, First dose (after last | | | modification) on [facility] 02/16/19 at | | | 1800, For subcutaneous use only. | | | Basal (long acting) insulin., If | | | NPO: Decrease dose, by: 25% | | + +---+ | | | + +---+ + +---------+ +---+---+---+ | lactated ringers (LR) infusion | New Bag | 02/18/20 | | | | | at 10-100 mL/hr, Intravenous, | | 19 12:07 | | | | | CONTINUOUS, Starting Wed02/17/19 | | PM PDT | | | | | at 1230, TKO., Pre-op | | | | | | + +---------+ +---+---+---+ +---+---+ | | | +---+---+ + +-------+ +-------+---+---+ | lidocaine 1% injection PRN, | Given | 02/18/20 | 5 mLs | | | | Starting Wed02/17/19 at 1229, | | 19 12:29 | | | | | Intra-op | | PM PDT | | | | + +-------+ +-------+---+---+ +---+---+ | | | +---+---+ + +-------+ +-------+---+---+ | metoprolol succinate | Given | 02/19/20 | 25 mg | | | | (TOPROL-XL) ER tablet 25 mg 25 | | 19 9:08 | | | | | mg, Oral, DAILY, First dose on | | AM PDT | | | | | [facility] 02/16/19 at 1800, Tablet may | | | | | | | be cut where scored but do not | | | | | | | crush., | | | | | | + +-------+ +-------+---+---+ +-------+ +-------+---+---+ | Given | 02/18/20 | 25 mg | | | | | 19 8:59 | | | | | | AM PDT | | | | +-------+ +-------+---+---+ | Given | 02/17/20 | 25 mg | | | | | 19 6:35 | | | | | | PM PDT | | | | +-------+ +-------+---+---+ +---+---+ | | | +---+---+ + +-------+ +------+---+---+ | morphine injection 2 mg 2 mg, | Given | 02/19/20 | 2 mg | | | | Intravenous, EVERY 2 HOURS PRN, | | 19 9:14 | | | | | Pain, Starting Nel[place] 02/16/19 at | | AM PDT | | | | | 1731 | | | | | | + +-------+ +------+---+---+ +-------+ +------+---+---+ | Given | 02/19/20 | 2 mg | | | | | 19 2:02 | | | | | | AM PDT | | | | +-------+ +------+---+---+ | Given | 02/18/20 | 2 mg | | | | | 19 8:31 | | | | | | PM PDT | | | | +-------+ +------+---+---+ + +---+ | | | + +---+ | nicotine polacrilex (COMMIT) | | | lozenge 2 mg 2 mg, Oral, PRN, | | | Nicotine Craving, Starting [place] | | | 02/16/19 at 1731 | | + +---+ | | | + +---+ | ondansetron (ZOFRAN) injection | | | 4 mg 4 mg, Intravenous, EVERY 6 | | | HOURS PRN, Nausea, Vomiting, | | | Starting 02/17/19 at 1134 | | + +---+ | | | + +---+ + +-------+ +-------+---+---+ | pantoprazole (PROTONIX) DR | Given | 02/19/20 | 40 mg | | | | tablet 40 mg 40 mg, Oral, 2 | | 19 6:19 | | | | | TIMES DAILY BEFORE MEALS, First | | AM PDT | | | | | dose on [facility] 02/16/19 at 1800, | | | | | | | Indication: GERD | | | | | | + +-------+ +-------+---+---+ +-------+ +-------+---+---+ | Given | 02/18/20 | 40 mg | | | | | 19 6:09 | | | | | | PM PDT | | | | +-------+ +-------+---+---+ | Given | 02/18/20 | 40 mg | | | | | 19 6:43 | | | | | | AM PDT | | | | +-------+ +-------+---+---+ +---+---+ | | | +---+---+ + +-------+ +--------+---+---+ | traZODone (DESYREL) tablet 150 | Given | 02/18/20 | 150 mg | | | | mg 150 mg, Oral, NIGHTLY, First | | 19 9:49 | | | | | dose on [place] 02/16/19 at 2100 | | PM PDT | | | | + +-------+ +--------+---+---+ +-------+ +--------+---+---+ | Given | 02/17/20 | 150 mg | | | | | 19 8:01 | | | | | | PM PDT | | | | +-------+ +--------+---+---+ +---+---+ | | | +---+---+ documented in this encounter
--- OUTSIDE RECORDS SUMMARY | ~2019-09-14 | XMS | Encounter Summary ---
Demographics + + + | Address | [address] | | | [place] [address] | + + + | Home Phone | | + + + | Preferred Language | Unknown | + + + | Marital Status | Single | + + + | Amish Affiliation | Unknown | + + + | Race | Unknown | + + + | Ethnic Group | Unknown | + + + Author + + + | Author | [facility] | | | and [facility] | + + + | Organization | [facility] | | | and [place] | + + + | Address | Unknown | + + + | Phone | Unavailable | + + + Support + + + + + | Name | Relationship | Address | Phone | + + + + + | aVl Torrez | ECON | [address] | | | | | [place] [address] | | + + + + + Care Team Providers + +------+ + | Care Clip On Sunglasses Assembler Name | Role | Phone | + +------+ + PCP | Unavailable | + +------+ + Encounter Details +--------+ + + + + | Date | Type | Department | Care Team | Description | +--------+ + + + + | 04/10/ | Hospital | [facility] | Conversion | Mechanical | | 2002 - | Encounter | [facility] [address] | Transaction, | complication of | | | | [address] | Provider Unknown | internal orthopedic | | 04/11/ | | [place], [place] | [phone] | device, implant, and | | 2002 | | [address] | | graft (HCC) | | | | [phone] | | | +--------+ + + + [...] filedocumented as of this encounter Visit Diagnoses + + | Diagnosis | + + | Mechanical complication of internal orthopedic device, implant, and graft (HCC) | | Unspecified mechanical complication of internal orthopedic device, implant, and graft | + + documented in this encounter"
--- OUTSIDE RECORDS SUMMARY | ~2019-09-14 | XMS | Encounter Summary ---
Demographics + + + | Address | [address] | | | [place] [address] | + + + | Home Phone | | + + + | Preferred Language | Unknown | + + + | Marital Status | Single | + + + | Latter Day Affiliation | Unknown | + + + | Race | Unknown | + + + | Ethnic Group | Unknown | + + + Author + + + | Author | [facility] | | [facility] | + + + | Organization | [facility] | | | [...] | | | | | [place] [address] | | + + + + + Care Team Providers + +------+ + | Care Caramel Candy Maker Helper Name | Role | Phone | + +------+ + | Debora Butts | PCP | | + +------+ + Encounter Details +--------+ + + + + | Date | Type | Department | Care Team | Description | +--------+ + + + + | 12/11/ | Hospital | [facility] | Bipin Mcconnell, | Wound infection, | | 2013 | Encounter | [facility] | MD [address], | subsequent encounter | | | | [address] | [address], | ([facility]) (Primary Dx) | | | | [place], [place] | [place] [address] | | | | | [address] | [phone] | | | | | [phone] | | | +--------+ + + + [...] + + documented as of this encounter Medications at Time of Discharge [...] +---------+--------+ + documented as of this encounter Plan of Treatment Not on filedocumented as of this encounter Procedures + +--------+ + + + | Procedure Name | Priori | Date/Time | Associated Diagnosis | Comments | | | ty | | | | + +--------+ + + + | SLIDE REVIEW, | Routin | 12/11/2013 | Wound infection, | Results for this | | PERIPHERAL SMEAR | e | 3:25 PM | subsequent encounter | procedure are in the | | | | PDT | ([facility]) | results section. | + +--------+ + + + | CBC WITH | Routin | 12/11/2013 | Wound infection, | Results for this | | DIFFERENTIAL | e | 3:25 PM | subsequent encounter | procedure are in the | | | | PDT | ([facility]) | results section. | + +--------+ + + + | BASIC METABOLIC | Routin | 12/11/2013 | Wound infection, | Results for this | | PANEL | e | 3:25 PM | subsequent encounter | procedure are in the | | | | PDT | ([facility]) | results section. | + +--------+ + + + documented in this encounter Results Hepatic Function Panel (12/11/2013 3:25 PM PDT) + +---------+ + + + | Component | Value | Ref Range | Performed | Pathologist | | | | | At | Signature | + +---------+ + + + | Bilirubin | 0.6 | 0.1 - 1.5 mg/dL | [facility] | | | Total | | | [facility] | | | | | | [facility]ICAL | | | | | | CENTER - | | | | | | LABORATORY | | + +---------+ + + + | Total | 5.7 (L) | 6.0 - 7.8 g/dL | [facility] | | | Protein | | | [facility] | | | | | | MEDICAL | | | | | | CENTER - | | | | | | LABORATORY | | + +---------+ + + + | Albumin | 2.6 (L) | 3.2 - 5.0 g/dL | [facility] | | | | | | [facility] | | | | | | MEDICAL | | | | | | CENTER - | | | | | | LABORATORY | | + +---------+ + + + | AST | 14 | 10 - 42 U/L | [facility] | | | | | | [facility] | | | | | | MEDICAL | | | | | | CENTER - | | | | | | LABORATORY | | + +---------+ + + + | ALT | 13 | 6 - 45 U/L | [facility] | | | | | | [facility] | | | | | | MEDICAL | | | | | | CENTER - | | | | | | LABORATORY | | + +---------+ + + + | Alkaline | 98 | 40 - 110 U/L | [facility] | | | Phosphatase | | | [facility] | | | | | | MEDICAL | | | | | | CENTER - | | | | | | LABORATORY | | + +---------+ + + + | Globulin | 3.1 | g/dL | [facility] | | | | | | [facility] | | | | | | MEDICAL | | | | | | CENTER - | | | | | | LABORATORY | | + +---------+ + + + | Albumin/Ivon | 0.8 | | [facility] | | | bulin Ratio | | | [facility] | | | | | | MEDICAL | | | | | | CENTER - | | | | | | LABORATORY | | + +---------+ + + + | Bilirubin, | 0.10 | 0.00 - 0.20 | [facility] | | | Direct | | mg/dl | [facility] | | | | [...] [address] | [place] | [phone] | | [facility] | | [address] | | | - LABORATORY | | | | + + + + + | [facility] | [address] | [place] | | | [facility] | | [address], [facility] | | | - LABORATORY | | | | + + + + + Slide Review, Peripheral Smear (12/11/2013 3:25 PM PDT) + +--------+ + + + | Component | Value | Ref Range | Performed | Pathologist | | | | | At | Signature | + +--------+ + + + | RBC | Normal | | [facility] | | | Morphology | | | [facility] | | | | | | MEDICAL | | | | | | CENTER - | | | | | | LABORATORY | | + +--------+ + + + | WBC | Normal | | [facility] | | | Morphology | | | [facility] | | | | | | MEDICAL | | | | | | CENTER - | | | | | | LABORATORY | | + +--------+ + + + | Platelet | Normal | | [facility] | | | Morphology | | | [facility] | | | | | | MEDICAL | | | | | | CENTER - | | | | | | LABORATORY | | + +--------+ + + + + + | Specimen | + + | Blood | + + + + + | Narrative | Performed At | + + + | No blast seen on smear. | [facility] | | | [facility] | | [facility] | | | - LABORATORY | + + + + + + + + | Performing | Address | City/State/Zipcode | Phone Number | | Organization | | | | + + + + + | [facility] | [address] | [place] | [phone] | | [facility] | | [address] | | | - LABORATORY | | | | + + + + + | [facility] | [address] | [place], [place] | | | [facility] | | [id number] | | | - LABORATORY | | | | + + + + + Basic Metabolic Panel (12/11/2013 3:25 PM PDT) + + + + + + | Component | Value | Ref Range | Performed | Pathologist | | | | | At | Signature | + + + + + + | Na | 140 | 136 - 149 | [facility] | | | | | mmol/L | [facility] | | | | | | MEDICAL | | | | | | CENTER - | | | | | | LABORATORY | | + + + + + + | K | 4.1 | 3.5 - 5.1 | [facility] | | | | | mmol/L | [facility] | | | | | | MEDICAL | | | | | | CENTER - | | | | | | LABORATORY | | + + + + + + | Cl | 105 | 98 - 109 mmol/L | [facility] | | | | | | [facility] | | | | | | MEDICAL | | | | | | CENTER - | | | | | | LABORATORY | | + + + + + + | CO2 | 28 | 24 - 31 mmol/L | [facility] [...] + + | Glucose | 102 | 70 - 109 mg/dL | [facility] | | | | | | [facility] | | | | | | MEDICAL | | | | | | CENTER - | | | | | | LABORATORY | | + + + + + + | BUN | 8 | 7 - 18 mg/dL | [facility] | | | | | | [facility] | | | | | | MEDICAL | | | | | | CENTER - | | | | | | LABORATORY | | + + + + + + | Creatinine | 0.62 | 0.60 - 1.30 | [facility] | [...] mL/min/1.73m2 | [facility] | | | [place] | RATE,ESTIMATED | | MEDICAL | | | | mL/min/[id number] than | | CENTER - | | [...] + + | Calcium | 8.9 | 8.3 - 10.5 | [facility] | | | | | mg/dL | [facility] | | | | | | MEDICAL | | | | | | CENTER - | | | | | | LABORATORY | | + + + + + + | BUN/Creatin | 12.9 | | [facility] | | | ine [...] + | [facility] | [address] | [place] | [phone] | | [facility] | | [address] | | | - LABORATORY | | | | + + + + + | [facility] | [address] | [place] | | | [facility] | | [id number] | | | - LABORATORY | | | | + + + + + CBC with Differential (12/11/2013 3:25 PM PDT) + +---------+ + + + | Component | Value | Ref Range | Performed | Pathologist | | | | | At | Signature | + +---------+ + + + | WBC | 9.2 | 4.0 - 11.0 K/uL | [facility] | | | | | | [facility] | | | | | | MEDICAL | | | | | | CENTER - | | | | | | LABORATORY | | + +---------+ + + + | RBC | 4.38 | 4.30 - 5.70 | [facility] | | | | | M/uL | [facility] | | | | | | MEDICAL | | | | | | CENTER - | | | | | | LABORATORY | | + +---------+ + + + | Hemoglobin | 14.0 | 13.5 - 18.0 | [facility] | | | | | g/dL | [facility] | | | | | | MEDICAL | | | | | | CENTER - | | | | | | LABORATORY | | + +---------+ + + + | Hematocrit | 42.2 | 40.0 - 51.0 % | [facility] | | | | | | [facility] | | | | | | MEDICAL | | | | | | CENTER - | | | | | | LABORATORY | | + +---------+ + + + | MCV | 96.3 | 83.0 - 101.0 fL | [facility] | | | | | | [facility] | | | | | | MEDICAL | | | | | | CENTER - | | | | | | LABORATORY | | + +---------+ + + + | MCH | 32.1 | 28.0 - 35.0 pg | [facility] | | | | | | [facility] | | | | | | MEDICAL | | | | | | CENTER - | | | | | | LABORATORY | | + +---------+ + + + | MCHC | 33.3 | 32.0 - 36.0 | [facility] | | | | | g/dL | [facility] | | | | | | MEDICAL | | | | | | CENTER - | | | | | | LABORATORY | | + +---------+ + + + | RDW-CV | 13.9 | <15.0 % | [facility] | | | | | | [facility] | | | | | | MEDICAL | | | | | | CENTER - | | | | | | LABORATORY | | + +---------+ + + + | Platelet | 478 (H) | 140 - 440 K/uL | [facility] | | | Count | | | [facility] | | | | | | MEDICAL | | | | | | CENTER - | | | | | | LABORATORY | | + +---------+ + + + | MPV | 9.6 | fL | [facility] | | | | | | [facility] | | | | | | MEDICAL | | | | | | CENTER - | | | | | | LABORATORY | | + +---------+ + + + | % | 70.6 | 45.0 - 82.0 % | [facility] | | | Neutrophils | | | [facility] | | | | | | MEDICAL | | | | | | CENTER - | | | | | | LABORATORY | | + +---------+ + + + | % | 21.2 | 20.0 - 45.0 % | [facility] | | | Lymphocytes | | | [facility] | | | | | | MEDICAL | | | | | | CENTER - | | | | | | LABORATORY | | + +---------+ + + + | % Monocytes | 6.4 | 4.0 - 12.0 % | [facility] | | | | | | [facility] | | | | | | MEDICAL | | | | | | CENTER - | | | | | | LABORATORY | | + +---------+ + + + | % | 0.5 | 0.0 - 5.0 % | [facility] | | | Eosinophils | | | [facility] | | | | | | MEDICAL | | | | | | CENTER - | | | | | | LABORATORY | | + +---------+ + + + | % Basophils | 1.3 (H) | 0.0 - 1.0 % | [facility] | | | | | | [facility] | | | | | | MEDICAL | | | | | | CENTER - | | | | | | LABORATORY | | + +---------+ + + + | Absolute | 6.50 | 1.80 - 8.50 | [facility] | | | Neutrophils | | K/uL | [facility] | | | | | | MEDICAL | | | | | | CENTER - | | | | | | LABORATORY | | + +---------+ + + + | Absolute | 1.90 | 0.60 - 3.20 | [facility] | | | Lymphocytes | | K/uL | [facility] | | | | | | MEDICAL | | | | | | CENTER - | | | | | | LABORATORY | | + +---------+ + + + | Absolute | 0.60 | 0.00 - 1.00 | [facility] | | | Monocytes | | K/uL | [facility] | | | | | | MEDICAL | | | | | | CENTER - | | | | | | LABORATORY | | + +---------+ + + + | Absolute | 0.00 | 0.00 - 0.40 | [facility] | | | Eosinophils | | K/uL | [facility] | | | | | | MEDICAL | | | | | | CENTER - | | | | | | LABORATORY | | + +---------+ + + + | Absolute | 0.10 [...] [facility] | [address] | [place] | [phone] | | [facility] | | [address] | | | - LABORATORY | | | | + + + + + | [facility] | [address] | [place], [place] | | | [facility] | | [id number] | | | - LABORATORY | | | | + + + + + documented in this encounter Visit Diagnoses + + | Diagnosis | + + | Wound infection, subsequent encounter - Primary | + + documented in this encounter"
--- OUTSIDE RECORDS SUMMARY | ~2019-09-14 | XMS | Encounter Summary ---
Demographics + + + | Address | [address] | | | [place] [address] | + + + | Home Phone | | + + + | Preferred Language | Unknown | + + + | Marital Status | Single | + + + | Baptist Affiliation | Unknown | + + + | Race | Unknown | + + + | Ethnic Group | Unknown | + + + Author + + + | Author | [facility] | | | and [facility] | + + + | Organization | [facility] | | | and [...] | | | | | [place] [address] | | + + + + + Care Team Providers + +------+ + | Care Bottle Blower Name | Role | Phone | + +------+ + | Debora Butts | PCP | | + +------+ + Encounter Details +--------+ + + + + | Date | Type | Department | Care Team | Description | +--------+ + + + + | 12/11/ | Orders Only | [facility] | Derrick Hernandez, | Wound infection, | | 2014 | | [facility] | [place] | subsequent encounter | | | | [address] | | ([facility]) | | | | [place] | | | | | | [address] | | | | | | [phone] | | | +--------+ + + + [...] + + + | HEPATIC FUNCTION | Routin | 12/11/2013 | Wound infection, | Results for this | | PANEL | e | 3:25 PM | subsequent encounter | procedure are in the | | | | PDT | (HCC) | results section. | + +--------+ + [...] | Direct | | mg/dl | [facility] | | | | [...] [address] | [place] | [phone] | | [facility] | | [id number] | | | - LABORATORY | | | | + + + + + | [facility] | [address] | [place] | | | [facility] | | [id number] | | | - LABORATORY | | | | + + + + + documented in this encounter Visit Diagnoses + + | Diagnosis | + + | Wound infection, subsequent encounter | + + documented in this encounter"
--- OUTSIDE RECORDS SUMMARY | ~2019-09-14 | XMS | Encounter Summary ---
Demographics + + + | Address | [address] | | | [place] [address] | + + + | Home Phone | | + + + | Preferred Language | Unknown | + + + | Marital Status | Single | + + + | Rastafari Affiliation | Unknown | + + + | Race | Unknown | + + + | Ethnic Group | Unknown | + + + Author + + + | Author | [facility] | | [facility] | + + + | Organization | [facility] | | [...] | | | | | [place] [address] | | + + + + + Care Team Providers + +------+ + | Care Freight Unloader Name | Role | Phone | + +------+ + | Shi MiramontesP | PCP | | + +------+ + Reason for Referral Diagnostic/Screening (Routine) +--------+--------+ + + + + | Status | Reason | Specialty | Diagnoses / | Referred By | Referred To | | | | | Procedures | Contact | Contact | +--------+--------+ + + + + | Closed | | Radiology | Diagnoses | Vijay | | | | | | PAD | MD Madi | | | | | | (peripheral | [address] | | | | | | artery | [address] | | | | | | disease) | [address] | | | | | | (HCC) | [place] | | | | | | Procedures | [place] | | | | | | IR Angiogram | [address] | | | | | | Lower | Phone: | | | | | | Extremity | [phone] | | | | | | Left | Fax: | | | | | | | [phone] | | +--------+--------+ + + + + Reason for Visit +---------+ + | Reason | Comments | +---------+ + | Consult | PVD | +---------+ + Evaluate & Treat (Routine) + +--------+ + + + + | Status | Reason | Specialty | Diagnoses / | Referred By | Referred To | | | | | Procedures | Contact | Contact | + +--------+ + + + + | Pending | | Vascular | Diagnoses | Fe | [facility] | | Review | | Surgery | Peripheral | [facility] [place] | Surgery | | | | | vascular | [address] | [address] | | | | | disease, | [address] | [address] | | | | | unspecified | [address] | [place] | | | | | (HCC) | [place], [place] | [address] | | | | | | [address] | Phone: | | | | | | Phone: | [phone] | | | | | | [phone] | Fax: | | | | | | Fax: | [phone] | | | | | | [phone] | | + +--------+ + + + + Encounter Details +--------+---------+ + + + | Date | Type | Department | Care Team | Description | +--------+---------+ + + + | 06/21/ | Office | [facility] | Madi Linares MD | PAD (peripheral | | 2020 | Visit | VASCULAR SURGERY | [address] | artery disease) | | | | [address] | [address] [place] | ([facility]) (Primary Dx); | | | | [place], [place] | [place] [address] | Critical lower limb | | | | [address] | [phone] | ischemia | | | | [phone] | | | +--------+---------+ + + + [...] this encounter Last Filed Vital Signs + +---------+ + + | Vital Sign | Reading | Time Taken | Comments | + +---------+ + + | Blood Pressure | 135/62 | 06/21/2019 3:33 PM | | | | | PST | | + +---------+ + + | Pulse | 78 | 06/21/2019 3:33 PM | | | | | PST | | + +---------+ + + | Temperature | - | - | | + +---------+ + + | Respiratory Rate | - | - | | + +---------+ + + | Oxygen Saturation | 100% | 06/21/2019 3:33 PM | | | | | PST | | + +---------+ + + | Inhaled Oxygen | - | - | | | Concentration | | | | + +---------+ + + | Weight | - | - | | + +---------+ + + | Height | - | - | | + +---------+ + + | Body Mass Index | - | - | | + +---------+ + + documented in this encounter Functional [...] documented as of this encounter Progress Notes George Jasso - 06/21/2019 3:45 PM PSTFormatting of this note might be different from the o riginal. [facility] [address] [address] Office: [phone] DATE OF VISIT: 06/21/19 PATIENT NAME: Paul Bunn : 1945; AGE: 73 y.o.; Sex:M PHONE NUMBER: ; (Work); ; PHYSICIAN: Madi Linares MD PRIMARY CARE / REFERRING PHYSICIAN: Shi Miramontes FNP / [facility] / [address] [place] [address] / [place] [id number] / REASON FOR EVALUATION / CHIEF COMPLAINT: Peripheral arterial disease HISTORY OF PRESENT ILLNESS: Paul Bunn is a 73 y.o. male patient who presents for hugo luation of peripheral arterial disease. The patient has history of right above the knee ampu tation, and toe amputations of all the toes of his left foot. The patient's right leg amputa tions were performed in [place] in 2011. The patient's third, fourth, and fifth toe amputati on on the left foot were performed on 05/04/[address] Coreas, Podiatry as the patient lazo d gangrene on the third toe. The patient is currently on an aspirin and Plavix. The patient was referred to Vascular Surgery for further evaluation and treatment of peripheral arterial disease. PAST SURGICAL HISTORY: The patient's has a past surgical history that includes Leg amputat ion below knee (2011); Cervical spine surgery; Leg Surgery (1967); Cholecystectomy, laparosc opic (11/30/2013); Toe amputation; Leg amputation at hip (Right, 01/2017); Toe amputation ([place], 02/17/2019); and Toe amputation (Left, 05/04/2019). PAST MEDICAL HISTORY: The patient has a past medical history of Arrhythmia, Arthritis, Car pal tunnel syndrome, Constipation, chronic, Dental caries, Depression, Diabetes mellitus (HC C), Diabetic neuropathy (HCC), Epidermal cyst of face, Ganglion cyst, GERD (gastroesophageal reflux disease), Hyperlipidemia, Hypertension, Hypomagnesemia, Impotence, Insomnia, Neuropa thy, Nicotine dependence, Osteoarthrosis involving multiple sites, Peripheral vascular disea se (HCC), PTSD (post-traumatic stress disorder), PTSD (post-traumatic stress disorder), Rais ed prostate specific antigen, Skin ulcer (HCC), Sleep disorder, Umbilical hernia, and Urinar y frequency. FAMILY HISTORY: The patient's family history is not on file. CURRENT MEDICATIONS: Current Outpatient Medications Medication Sig Dispense Refill ascorbic acid (VITAMIN C) 500 mg tablet Take 500 mg by mouth Daily. aspirin 81 MG EC tablet Take 81 mg by mouth Daily. calcium-vitamin D (CALCIUM 600 + D) 600-400 MG-UNIT TABS Take 1,200 mg by mouth every e vening. cholecalciferol (VITAMIN D-3) 1,000 units tablet Take 2,000 Units by mouth Daily. clopidogrel (PLAVIX) 75 mg tablet Take 75 mg by mouth Daily. clotrimazole (LOTRIMIN) 1% external solution Apply topically 2 times daily. cyanocobalamin (VITAMIN B-12) 500 mcg tablet Take 1,000 mcg by mouth Daily. cyclobenzaprine (FLEXERIL) 10 mg tablet Take 10 mg by mouth nightly as needed for Muscl e spasms. docusate sodium (COLACE) 250 MG capsule Take 250 mg by mouth 2 times daily. FIBER ADULT GUMMIES PO Take 1-2 tablets by mouth Daily. fish oil 1,000 mg capsule Take 1,000 mg by mouth 2 times daily. gabapentin (NEURONTIN) 300 mg capsule Take 600 mg by mouth every 4 hours. For neuropath y and LAZO pain Heparin Lock Flush (HEPARIN, PORCINE, LOCK FLUSH IV) 5 mLs by IV Push route as needed ( after IV therapy and lab draw). HYDROcodone-acetaminophen (NORCO) 10-325 mg per tablet Take 1 tablet by mouth 4 times d aily as needed for Pain. 20 tablet 0 Lactobacillus (PROBIOTIC ACIDOPHILUS) CAPS Take 1 capsule by mouth 2 times daily. 30 ca psule 0 lisinopril (PRINIVIL, ZESTRIL) 20 mg tablet Take 20 mg by mouth Daily. magnesium oxide (MAOX) 420 MG TABS Take 840 mg by mouth Daily. metformin (GLUCOPHAGE) 1000 MG tablet Take 1,000 mg by mouth 2 times daily (with breakf ast & dinner). metoprolol succinate (TOPROL-XL) 50 mg 24 hr tablet Take 25 mg by mouth Daily. MULTIPLE VITAMINS-MINERALS PO Take 1 tablet by mouth Daily. naloxone (NARCAN) 4 mg/nasal spray 4 mg by Nasal route as needed. Breeden 1 dose in nose as directed as needed for accidental opioid (pain medication) overdose. May repeat in other nostril in 3-5 minutes if needed. Call 911. naproxen (NAPROSYN) 250 mg tablet Take 250 mg by mouth. Every 8-12 hours as needed for pain nicotine (NICODERM) 21 mg/[address] 1 patch onto the skin Daily. 30 patch 0 nicotine polacrilex (COMMIT) 4 MG lozenge One lozenge should be taken every 1 to 2 hour s for the first 6 weeks, then one lozenge every 2 to 4 hours during weeks 7 to 9 and every 4 to 8 hours during weeks 10 through 12 (maximum 20 lozenges/day) 72 lozenge 0 omeprazole (PRILOSEC) 20 mg capsule Take 20 mg by mouth 2 times daily. senna (SENOKOT) 8.6 mg tablet Take 1 tablet by mouth Daily. sildenafil (VIAGRA) 100 MG tablet Take 50 mg by mouth Daily as needed for Erectile Dysf unction. No more than 1 dose per day/4 per month simvastatin (ZOCOR) 20 mg tablet Take 20 mg by mouth nightly. Sodium Chloride Flush (NORMAL SALINE FLUSH IV) 10 mLs by IV Push route as needed (befor e and after IV therapy). tamsulosin (FLOMAX) 0.4 mg CAPS Take 0.8 mg by mouth Daily. For urinary frequency/prost ate traZODone (DESYREL) 150 MG tablet Take 150 mg by mouth nightly. No current facility-administered medications for this visit. Allergies Allergen Reactions Ketamine Other (See Comments) agitation SOCIAL HISTORY: reports that he has been smoking cigarettes. He has a 59.00 pack-year smok ing history. He has never used smokeless tobacco. He reports current alcohol use of about 28 .0 standard drinks of alcohol per week. He reports current drug use. Frequency: 7.00 times p er week. Drug: Marijuana. VITAL SIGNS: BP 135/62 | Pulse 78 | SpO2 100% . ROS: 12-point ROS negative, other per HPI IMAGING: Arterial duplex done today - shows severe peripheral arterial disease with BERT of 0.33 PHYSICAL EXAM: Constitutional: Well nourished, no signs of distress HENT: Normocephalic and atraumatic. Cranial nerves II-XI are grossly intact. Cardiovascular: regular Pulmonary/Chest: Unlabored at rest Abdominal: non-tender Musculoskeletal: Normal range of motion. Extremities: No edema, right AKA, left TMA with open wound, some fibrinous material. No mohit dence of infection Neurological: alert and oriented VASCULAR: monophasic signals DP/PT ASSESSMENT & PLAN: Mr. Bunn is a 73 y.o. male with peripheral arterial disease and history of right AKA and r ecent left TMA. Now with non-healing TMA, and left lower extremity CLI. duplex shows BERT o f 0.3, monophasic signals on exam. I recommend left leg angiogram to further evaluate and t reat the patient's peripheral arterial disease. Benefits, alternatives, and risks including bleeding, infection, arterial injury, and kidney injury due to contrast were discussed. The patient is agreeable with the plan for left leg angiogram and has signed consent. We will pl an for procedure on 06/27/2018. Dictation software, TouchMail, used which may contain error for similar sounding words even af ter review. Personal communication requested for any clarification. Portions of this chart may have been copied from previous notes for continuity of care purp ose Attending Note: Documentation assistance provided by George Jasso (Ton). Information daly rded by the scribe has been reviewed and validated by me. I agree with its contents. Signed by: Ton Swenson 06/21/19, 3:57 PM Madi Linares MD Vascular Surgery document ed in this encounter Plan of Treatment Not on filedocumented as of this encounter Results IR Angiogram Lower Extremity Left (07/04/2019 1:50 PM PST) + + | Specimen | + + | | + + + + --+ | Narrative | Performed At | + + --+ | [facility] | [facility] | | [facility] SurgeryProcedure Note | | | NAME: Paul Bunn MR #: [id number]: 1945 DATE OF | | | PROCEDURE: 07/04/2019SURGEON: Madi Linares MDASSISTANT: None | | | PREOPERATIVE DIAGNOSIS:1. Left [...] DETAIL: The patient was taken to the outside laborer and placed on the | | | [...] was able to pass and a 5 Grenadian sheath was | | | placed. Using a Glidewire and catheter I was able to cross the | | | occluded superficial femoral artery. Contrast injection at the level | | | of the popliteal artery showed a patent popliteal artery with | | | three-vessel runoff in the lower extremity. I then advanced a SensibleSelf | | | wire to the below-knee [...] catheter and wire was removed. The 5 Grenadian sheath was removed and | | | [...] Vascular Surgery Dictation software, | | | TouchMail, used which may contain error for similar [...] to pass and a 5 | | |Grenadian sheath was placed. Using a Glidewire and catheter I was able to | | |cross the occluded superficial femoral artery. Contrast injection at the | | |level of the popliteal artery showed a patent popliteal artery with | | |three-vessel runoff in the lower extremity. I then advanced a SensibleSelf wire | | |to the below-knee popliteal [...] catheter and wire was removed. The 5 Grenadian sheath was removed and | | |the [...] | | | | | |Dictation software, TouchMail, used which may contain error for similar | | |sounding words even after review. Personal communication requested for any | | |clarification. | | | | | | | | | | | | | | | | | + + --+ + +---------+ + + | Performing | Address | City/State[facility] | Phone Number | | Organization | | | | + +---------+ + + | [facility] | | | | + +---------+ + + documented in this encounter Visit Diagnoses + + | Diagnosis | + + | PAD (peripheral artery disease) (HCC) - Primary Unspecified disorders of arteries and | | arterioles | + + | Critical lower limb ischemia Unspecified circulatory system disorder | + + documented in this encounter"
--- OUTSIDE RECORDS SUMMARY | ~2019-09-14 | XMS | Encounter Summary ---
Demographics + + + | Address | [address] | | | [place] [address] | + + + | Home Phone | | + + + | Preferred Language | Unknown | + + + | Marital Status | Single | + + + | Confucianism Affiliation | Unknown | + + + | Race | Unknown | + + + | Ethnic Group | Unknown | + + + Author + + + | Author | [facility] | | | and [facility] | + + + | Organization | [facility] | | | and [...] | | | | | [place] [address] | | + + + + + Care Team Providers + +------+ + | Care Glaze Handler Name | Role | Phone | + [...] | +--------+ + + + + | 02/16/ | Hospital | [facility] | Alex Pascual, | Diabetic foot | | 2019 - | Encounter | [facility] | [address] | infection (HCC) | | | | [address] | [facility] | (Primary Dx); | | 02/18/ | | [place] [address] | [place] [address] | Cellulitis of left | | 2019 | | [phone] | [phone] | foot; Abscess of | | | | | | second toe of left | | | | | Pretty Vazquez MD | foot; Peripheral | | | | | [address] | vascular disease | | | | | [place], [place] | ([facility]); Diabetes | | | | | [address] | mellitus type II, | | | | | | non insulin | | | | | | dependent ([facility]); | | | | | | Gastroesophageal | | | | | | reflux disease, | | | | | | esophagitis presence | | | | | | not specified; | | | | | | Acute osteomyelitis | | | | | | ([facility]) | +--------+ + + + + Social [...] Specialty: Family Nurse Practitioner Contact information: [address] [facility] [address] Kaylyn Coreas DPM In 1 week. Specialty: Podiatry Contact information: [address] [facility] [address] Discharge Medications New Medications Details doxycycline [...] signed by: Casi Hicks MD, 02/18/2019 13:42 [facility] documented in this en counter [...] Value Units Date/Time Culture, Wound, Smear, w/Anaerobe [[id number]] Collected: 02/17/191239 Order Status: Sent Lab Status: In process Updated: 02/17/191308 Specimen: Tissue from Toe, Second, Left Narrative: The following orders were created for panel order Culture, Wound, Smear, w/Anaerobe. Procedure Abnormality Status --------- ------ Culture, Wound, Smear[[id number]] In process Culture, Anaerobic[[id number]] In process Please view results for these tests on the individual orders. Culture, Wound, Smear [[id number]] Collected: 02/17/191239 Order Status: Sent Lab Status: In process Updated: 02/17/19 130 Specimen: Tissue from Toe, Second, Left Culture, Anaerobic [[id number]] Collected: 02/17/191239 Order Status: Sent Lab Status: In process Updated: 02/17/19 130 Specimen: Tissue from Toe, Second, Left Culture, Blood [[id number]] Collected: 02/16/19 1306 Order Status: Completed Lab Status: Preliminary result Updated: 02/17/19 0111 Specimen: Peripheral Blood Culture No growth: Monitored continually by instrument for 5 days Culture, Blood [[id number]] Collected: 02/16/191239 Order Status: Completed Lab Status: Preliminary result Updated: 02/17/19 0051 Specimen: Peripheral Blood Culture No growth: Monitored continually by instrument for 5 days Culture, Wound, Smear [[id number]] Collected: 02/16/191239 Order Status: Completed Lab Status: Preliminary result [...] C (98.1 F) Pulse: [71-96] 71 Resp: [-] 16 BP: (96-150)/(62-112) 122/74 Recent Labs Lab [...] Nash MD - 02/17/2019 4:00 PM PDT [facility] Hospitalist Progress Note Valentina Bunn [...] Pharmacy Consult Casi Hicks MD 02/17/2019 16:00 [facility] Akil Parra, Mill Oiler - 02/17/2019 10:00 AM PDTFormatting of this [...] Procedure Component Value Units Date/Time Culture, Blood [[id number]] Collected: 02/16/19 1306 Order Status: Completed Lab Status: Preliminary result Updated: 02/17/19 0111 Specimen: Peripheral Blood Culture No growth: Monitored continually by instrument for 5 days Culture, Blood [[id number]] Collected: 02/16/19 1240 Order Status: Completed Lab Status: Preliminary result Updated: 02/17/19 0051 Specimen: Peripheral Blood Culture No growth: Monitored continually by instrument for 5 days Culture, Wound, Smear [[id number]] Collected: 02/16/19 1240 Order Status: Sent Lab Status: In process Updated: 02/16/19 124 Specimen: Tissue from Toe, Second, Left Relevant [...] Monitoring Protocol Electronically signed by: Akil Siegel, Mill Oiler 02/17/2019 10:09Electroni jono signed by Akil Siegel, Mill Oiler at 02/17/2019 10:09 AM Homa Qureshi ret, [...] Procedure Component Value Units Date/Time Culture, Blood [[id number]] Collected: 02/16/19 1306 Order Status: Sent Lab Status: In process Updated: 02/16/19 1307 Specimen: Peripheral Blood Culture, Blood [[id number]] Collected: 02/16/19 1240 Order Status: Sent Lab Status: In process Updated: 02/16/19 124 Specimen: Peripheral Blood Culture, Wound, Smear [[id number]] Collected: 02/16/19 1240 Order Status: Sent Lab Status: In process Updated: 02/16/19 124 Specimen: Tissue from Toe, Second, Left Relevant cultures from previous admits: Date Source Organisms Sensitivities 10/26/17 Wound E. faecalis pansensitive 03/13/17 Wound E. [...] + | VANCOMYCIN, TROUGH | Timed | 02/18/2019 | | Results [...] | | n - | | | 02/16/ | | | 2019 | | | 11:18 | | | [...] | | | FICATI | | | ON?/ | | | | | | 9 | | | 11:16? | | | CATER, | | | | | | VALENTINA | | | | | | R?MRN: | | | | | | [id number] | | | [id number] | | | riteri | | | [...] MED | | | | | | 2019 [...] | | | 2019 | | | 7-29 | | | [...] | | | 2019 | | | 5-23 | | | HYDROC | | | [place] | | | [place] | | | [place] | | | [address] | | | MG | | | 112 | | | YANDEL | | | O | | | FERRAN | | | CO 2 | | | 40 | | | 2019 | | | 4-26 | | | HYDROC | | | [place]- | | | [place] | | | [place] | | | [address] | | | MG | | | 112 | | | YANDEL | | | O | | | FERRAN | | | CO 2 | | | 40 | | | 2019 | | | 3-26 | | | [...] | | | 40 | | | 2018 | | | 2-28 | | | HYDROC | | | [place]- | | | [place]ET[place] | | | IN | | | 10-325 | | | MG | | | 112 | | | YANDEL | | | O | | | FERRAN | | | CO 2 | | | 40 | | | 2018 | | | 1-26 | | | HYDROC | | | [place]- | | | [place] | | | [place] | | | [address] | | | MG | | | 112 | | | YANDEL | | | O | | | FERRAN | | | CO 2 | | | 40 | | | 2018 | | | 0-11 | | | [...] POC | Use This Result | | [facility] | | | [...] [address] | [place] | [phone] | | [facility] | | [address] | | | - LABORATORY | | [...] [address] | [place] | [phone] | | [facility] | | [address] | | | - LABORATORY | | [...] | | Last Dose | | | [facility] | | | | | | MEDICAL | | | | | | CENTER - | | | | | | LABORATORY | | + + + + + + | Time of | | | [facility] | | | Last Dose | | | [facility] | | | | | | MEDICAL | | | | | | CENTER - | | | | | | LABORATORY | | + + + + + + | Vancomycin | 14.5 (H) | 5.0 - 10.0 | [facility] | | | Trough | | ug/mL | [facility] | | | | [...] [address] | [place] | [phone] | | [facility] | | [address] | | | - LABORATORY | | | | + + + + + Magnesium (02/18/2019 5:29 AM PDT) + +-------+ + + + | Component | Value | Ref Range | Performed | Pathologist | | | | | At | Signature | + +-------+ + + + | Magnesium | 2.0 | 1.6 - 2.6 mg/dL | [facility] | | | | [...] + | [facility] | [address] | [place] | [phone] | | [facility] | | [address] | | | - LABORATORY | | [...] | 0.84 | 0.70 - 1.30 | [facility] | | | | | mg/dL | [facility] | | | | | | MEDICAL | | | | | | CENTER - | | | | | | LABORATORY | | + + + + + + | eGFR if not | >60Comment: GLOMERULAR | >=60 | [facility] | | | | FILTRATION | mL/min/1.73m2 | [facility] | | | [place] | RATE,ESTIMATED | | MEDICAL | | | | mL/min/1.40u4Vish than | | CENTER - | | [...] | ine Ratio | | | [facility] | | [...] [address] | [place] | [phone] | | [facility] | | [address] | | | - LABORATORY | | | | + + + + + CBC with Differential (02/18/2019 5:29 AM PDT) + + + + + + | Component | Value | Ref Range | Performed | Pathologist | | | | | At | Signature | + + + + + + | WBC | 8.9 | 4.0 - 11.0 K/uL | [facility] [...] | | | | | WBCs | [facility] | | | | [...] [address] | [place] | [phone] | | [facility] | | [address] | | | - LABORATORY | | [...] + | [facility] | [address] | [place] | [phone] | | [facility] | | [address] | | | - LABORATORY | | | | + + + + + POC Glucose (02/17/2019 5:55 PM PDT) + +---------+ + + + | Component | Value | Ref Range | Performed | Pathologist | | | | | At | Signature | + +---------+ + + + | Glucose, | 153 (H) | 70 - 109 mg/dL | [facility] | | | POC | | | [...] ST. | [address] | [place], [place] | [phone] | | [facility] | | [address] | | | - LABORATORY | | [...] [address] | [place] | [phone] | | [facility] | | [address] | | | - LABORATORY | | [...] | | | | | | [facility] | | | | | | MEDICAL | | | | | | CENTER - | | | | | | LABORATORY | | + + + + + + | Gram Stain | 1+ White Blood Cells | | [facility] | | | Result | | | [facility] | | [...] [address] | [place] | [phone] | | [facility] | | [address] | | | - LABORATORY | | | | + + + + + POC Glucose (02/17/2019 11:38 AM PDT) + +---------+ + + + | Component | Value | Ref Range | Performed | Pathologist | | | | | At | Signature | + +---------+ + + + | Glucose, | 110 (H) | 70 - 109 mg/dL | [facility] | | | POC | | | [...] [address] | [place] | [phone] | | [facility] | | [address] | | | - LABORATORY | | [...] [address] | [place] | [phone] | | [facility] | | [address] | | | - LABORATORY | | [...] | | A1c | | | [facility] | | | | | | MEDICAL | | | | | | CENTER - | | | | | | LABORATORY | | + +---------+ + + + | Estimated | 134 | mg/dL | [facility] | | | Average | | | [facility] | | | Glucose | | | [...] ST. | [address] | [place] | [phone] | | [facility] | | [address] | | | - LABORATORY | | [...] | | Direct | | mg/dl | [facility] | | | | | [...] [address] | [place] | [phone] | | [facility] | | [address] | | | - LABORATORY | | | | + + + + + Protime INR (02/17/2019 4:26 AM PDT) + + + + + + | Component | Value | Ref Range | Performed | Pathologist | | | | | At | Signature | + + + + + + | Prothrombin | 13.6 | 11.3 - 13.9 | [facility] | | | Time | | seconds | [facility] | | | | [...] [address] | [place] | [phone] | | [facility] | | [address] | | | - LABORATORY | | [...] [address] | [place] | [phone] | | [facility] | | [address] | | | - LABORATORY | | [...] + | [facility] | [address] | [place] | [phone] | | [facility] | | [address] | | | - LABORATORY | | [...] | 0.83 | 0.70 - 1.30 | [facility] | [...] mL/min/1.73m2 | [facility] | | | [place] | RATE,ESTIMATED | | MEDICAL | | | | mL/min/1.35k2Lllh than | | CENTER - | | [...] | ine Ratio | | | [facility] | | [...] + | [facility] | [address] | [place] | [phone] | | [facility] | | [address] | | | - LABORATORY | | [...] (L) | 9 - 23 mg/dL | [facility] | | | | | | [facility] | | | | | | MEDICAL | | | | | | CENTER - | | | | | | LABORATORY | | + + + + + + | Creatinine | 0.86 | 0.70 - 1.30 | [place] | | | | | mg/dL | [facility] | | | | | | MEDICAL | | | | | | CENTER - | | | | | | LABORATORY | | + + + + + + | eGFR if not | >60Comment: GLOMERULAR | >=60 | [place] | | | | FILTRATION | mL/min/1.73m2 | [facility] | | | [place] | RATE,ESTIMATED | | MEDICAL | | | | mL/min/1.13c3Qhkf than | | CENTER - | | [...] + | [facility] | [address] | [place] | [phone] | | [facility] | | [address] | | | - LABORATORY | | [...] [address] | [place] | [phone] | | [facility] | | [address] | | | - LABORATORY | | [...] | | | POC | | | [facility] | | | | [...] [address] | [place] | [phone] | | [facility] | | [address] | | | - LABORATORY | | [...] 9 | 9 - 23 mg/dL | [place] | | | | | | [facility] | | | | | | MEDICAL | | | | | | CENTER - | | | | | | LABORATORY | | + + + + + + | Creatinine | 0.95 | 0.70 - 1.30 | [place] | | | | | mg/dL | [facility] | | | | | | MEDICAL | | | | | | CENTER - | | | | | | LABORATORY | | + + + + + + | eGFR if not | >60Comment: GLOMERULAR | >=60 | [place] | | | | FILTRATION | mL/min/1.73m2 | [facility] | | | [place] | RATE,ESTIMATED | | MEDICAL | | | | mL/min/1.64m7Lbuf than | | CENTER - | | [...] + | [facility] | [address] | [place] | [phone] | | [facility] | | [address] | | | - LABORATORY | | [...] - 1.030 | [facility] | | | [place], | | | [facility] | | [...] | | Comment | Indicated | | [facility] | | | [...] + + | [facility] | [address] | [place] | [phone] | | [facility] | | [address] | | | - LABORATORY | | [...] [address] | [place] | [phone] | | [facility] | | [address] | | | - LABORATORY | | [...] | | Result | | | [facility] | | [...] [address] | [place] | [phone] | | [facility] | | [address] | | | - LABORATORY | | | | + + + + + C-Reactive Protein (02/16/2019 12:40 PM PDT) + + + + + + | Component | Value | Ref Range | Performed | Pathologist | | | | | At | Signature | + + + + + + | CRP | 80.90 (H) | <10.00 mg/L | [facility] | | | | | [...] + | [facility] | [address] | [place] | [phone] | | [facility] | | [address] | | | - LABORATORY | | | | + + + + + Sedimentation Rate (02/16/2019 12:40 PM PDT) + +--------+ + + + | Component | Value | Ref Range | Performed | Pathologist | | | | | At | Signature | + +--------+ + + + | Erythrocyte | 45 (H) | <20 mm/hr | [facility] | | | | | | [facility] | | | Sedimentati | | [...] [address] | [place] | [phone] | | [facility] | | [address] | | | - LABORATORY | | [...] ST. | [address] | [place], [place] | [phone] | | [facility] | | [address] | | | - LABORATORY | | [...] | 0.93 | 0.70 - 1.30 | [facility] | | | | | mg/dL | [facility] | | | | | | MEDICAL | | | | | | CENTER - | | | | | | LABORATORY | | + + + + + + | eGFR if not | >60Comment: GLOMERULAR | >=60 | [facility] | | | | FILTRATION | mL/min/1.73m2 | [facility] | | | [place] | RATE,ESTIMATED | | MEDICAL | | | | mL/min/1.11m2Zpxt than | | CENTER - | | [...] | ine Ratio | | | [facility] | | [...] + | [facility] | [address] | [place] | [phone] | | [facility] | | [address] | | | - LABORATORY | | [...] | | | | | WBCs | [facility] | | | | [...] ST. | [address] | [place] | [phone] | | [facility] | | [address] | | | - LABORATORY | | | | + + + + + documented in this encounter Visit Diagnoses + + | Diagnosis | + + | Skin ulcer of toe of left foot with fat layer exposed (HCC) - Primary | + + | Diabetic foot infection (HCC) Type II or unspecified type diabetes mellitus with | | other specified manifestations, not stated as uncontrolled | + + | Cellulitis of left foot Cellulitis and abscess of foot, except toes | + + | Abscess of second toe of left foot Cellulitis and abscess of toe, unspecified | + + | Peripheral vascular disease (HCC) Peripheral vascular disease, unspecified | + + | Diabetes mellitus type II, ORAL Control Type II or unspecified type diabetes mellitus | | without mention of complication, not stated as uncontrolled | + + | Gastroesophageal reflux disease, esophagitis presence not specified | + + | Acute osteomyelitis (HCC) Acute osteomyelitis, site unspecified | + + | Hypertension Unspecified essential hypertension | + + | PTSD (post-traumatic stress disorder) Posttraumatic stress disorder | + + | Smoker - Daily Tobacco use disorder | + + | Hyponatremia Hyposmolality and/or hyponatremia | + + | Arrhythmia Cardiac dysrhythmia, unspecified | + + documented in this encounter Administered Medications + +---------+ +------+-------+------+ | Medication Order | MAR | Action | Dose | Rate | Site | | | Action | Date | | | | + +---------+ +------+-------+------+ | ampicillin 2 g in sodium | New Bag | 02/17/20 | 2 g | 200 | | | chloride 0.9% 100 mL IVPB 2 g, | | 19 2:14 | | mL/hr | | | Intravenous, Administer over 30 | | PM PDT | | | | | Minutes, ONCE, [facility] 02/16/19 at | | | | | | | 1350, For 1 dose, Keep in | | | | | | | refrigerator., Indications: | | | | | | | Diabetic Foot Infection | | | | | | + +---------+ +------+-------+------+ +---+---+ | | | +---+---+ + +-------+ [...] | | | | First dose on [facility] 02/16/19 at 2100 | [...] PDT | | | | | Starting [facility] 02/16/19 at 1853 | | | | [...] | | | DAILY, First dose on [facility] 02/16/19 | | AM PDT | | | [...] | | | | | | Starting [facility] 02/16/19 at 1731 | | | | [...] (after last | | | modification) on [facility] 02/16/19 at | | | 1800, For [...] | | | | | CONTINUOUS, Starting 02/17/19 | | PM PDT | | | [...] +---+---+ + +-------+ +------+---+---+ | morphine injection 4 mg 4 mg, | Given | 02/17/20 | 4 mg | | | | Intravenous, ONCE, [facility] 02/16/19 at | | 19 2:18 | | | | | 1405, For 1 dose | | PM PDT | | | | + +-------+ +------+---+---+ + +---+ | | | [...] | | | | | dose on [facility] 02/16/19 at 1800, | | | | [...] + +---------+ +--------+-------+---+ | sodium chloride 0.9% (NS) | New Bag | 02/17/20 | 1,000 | 100 | | | infusion at 100 mL/hr, | | 19 4:14 | mLs | mL/hr | | | Intravenous, FIXED VOLUME (see | | PM PDT | | | | | admin instruction), Starting [facility] | | | | | | | 02/16/19 at 1540, For 10 hours, 1 | | | | | | | liter, | | | | | | + +---------+ +--------+-------+---+ +---+---+ | | | +---+---+ + +---------+ +--------+-------+---+ | sodium chloride 0.9% (NS) | New Bag | 02/18/20 | 1,000 | 100 | | | infusion at 100 mL/hr, | | 19 3:37 | mLs | mL/hr | | | Intravenous, FIXED VOLUME (see | | AM PDT | | | | | admin instruction), Starting Fri | | | | | | | 02/17/19 at 0400, For 10 hours, 1 | | | | | | | liter, | | | | | | + [...] mg in sodium | New Bag | 02/17/20 | 1,250 mg | 175 | | | chloride 0.9% 250 mL IVPB 1,250 | | 19 5:10 | | mL/hr | | | mg, Intravenous, Administer over | | PM PDT | | | | | 90 Minutes, ONCE, [facility] 02/16/19 at | | | | | | | 1500, For 1 dose, Keep in | | | | | | | refrigerator., Indications: | | | | | | | Diabetic Foot Infection | | | | | | + +---------+ + +-------+---+ +---+---+ | | | +---+---+ + +---------+ + +-------+---+ | vancomycin 1,250 mg in sodium | New Bag | 02/19/20 | 1,250 mg | 120 | | | chloride 0.9% 250 mL IVPB 1,250 | | 19 6:44 | | mL/hr | | | mg, Intravenous, Administer over | | AM PDT | | | | | 130 Minutes, EVERY 12 HOURS | | | | | | | INTERVAL, First dose on [facility] | | | | | | | 02/16/19 at 0500, Keep in | | | | | | | refrigerator., Indications: | | | | | | | Diabetic Foot Infection | | | | | | + +---------+ + +-------+---+ +---------+ + +-------+---+ | New Bag | 02/18/20 | 1,250 mg | 175 | | | | 19 6:13 | | mL/hr | | | | PM PDT | | | | +---------+ + +-------+---+ | New Bag | 02/18/20 | 1,250 mg | 175 | | | | 19 5:42 | | mL/hr | | | | AM PDT | | | | +---------+ + +-------+---+ +---+---+ | | | +---+---+ documented in this encounter
--- OUTSIDE RECORDS SUMMARY | ~2019-09-14 | XMS | Encounter Summary ---
Demographics + + + | Address | [address] | | | [place] [address] | + + + | Home Phone | | + + + | Preferred Language | Unknown | + + + | Marital Status | Single | + + + | Episcopal Affiliation | Unknown | + + + | Race | Unknown | + + + | Ethnic Group | Unknown | + + + Author + + + | Author | [facility] | | | and [facility] | + + + | Organization | [facility] | | | and [...] | | | | | [place] [address] | | + + + + + Care Team Providers + +------+ + | Care Thai Masseur Name | Role | Phone | + [...] + + + + | 05/29/ | Lab | [facility] | Geoff Simpson | ammy Ruggiero | | 2019 | Requisition | [facility] | MD [address] | elsewhere classified | | | | [address] | [place] | ([facility]); | | | | [place] | [place] [address] | Osteomyelitis, | | | | [address] | [phone] | unspecified ([facility]) | | | | [phone] | | | +--------+ + + + [...] + | CBC WITH | Routin | 05/29/2019 | Gangrene, not | Results for this | | DIFFERENTIAL | e | 12:30 PM | elsewhere classified | procedure are in the | | | | PST | ([facility]) | results section. | | | | | Osteomyelitis, | | | | | | unspecified (HCC) | | + +--------+ + + + | COMPREHENSIVE | Routin | 05/29/2019 | Gangrene, not | Results for this | | METABOLIC PANEL | e | 12:30 PM | elsewhere classified | procedure are in the | | | | PST | ([facility]) | results section. | | | | | Osteomyelitis, | | | | | | unspecified (HCC) | | + +--------+ + + + documented in this encounter Results Comprehensive Metabolic Panel (05/29/2019 12:30 PM PST) + + + + + + | Component | Value | Ref Range | Performed | Pathologist | | | | | At | Signature | + + + + + + | Na | 133 (L) | 136 - 145 | [facility] [...] + | Glucose | 163 (H) | 60 - 106 mg/dL | [facility] | | | | | | [facility] | | | | | | [facility] | | | | | | C[facility] - | | | | | | LABORATORY | | + + + + + + | BUN | 8 (L) | 9 - 23 mg/dL | [facility] | | | | | | [facility] | | | | | | [facility] | | | | | | CENTER - | | | | | | LABORATORY | | + + + + + + | Creatinine | 0.82 | 0.70 - 1.30 | [facility] | | | | | mg/dL | [facility] | | | | | | MEDICAL | | | | | | CENTER - | | | | | | LABORATORY | | + + + + + + | eGFR if not | >60Comment: GLOMERULAR | >=60 | [facility] | | | | FILTR[facility] | mL/min/1.73m2 | [facility] | | | [facility] | RATE,ESTIMATED | | MEDICAL | | | | mL/min/1.83d2Yzib than | | CENTER - | | [...] + + + + | Calcium | 9.3 | 8.7 - 10.4 | [facility] | | | | | mg/dL | [facility] | | | | | | [facility] | | | | | | CENTER - | | | | | | LABORATORY | | + + + + + + | Albumin | 3.8 | 3.2 - 4.8 g/dL | [facility] | | | | | | [facility] | | | | | | [facility] | | | | | | CENTER - | | | | | | LABORATORY | | + + + + + + | Bilirubin | 0.2 (L) | 0.3 - 1.2 mg/dL | [facility] | | | Total | | | [facility] | | | | | | [facility] | | | | | | CENTER - | | | | | | LABORATORY | | + + + + + + | Total | 6.5 | 5.7 - 8.2 g/dL | [facility] | | | Protein | | | [facility] | | | | | | [facility]ICAL | | | | | | CENTER - | | | | | | LABORATORY | | + + + + + + | AST | 16 | 0 - 34 U/L | [facility] | | | | | | [facility] | | | | | | [facility]ICAL | | | | | | CENTER - | | | | | | LABORATORY | | + + + + + + | ALT | 8 (L) | 10 - 49 U/L | [facility] | | | | | | [facility] | | | | | | [facility]ICAL | | | | | | CENTER - | | | | | | LABORATORY | | + + + + + + | Alkaline | 136 (H) | 46 - 116 U/L | [facility] | | | Phosphatase | | | [facility] | | | | | | MEDICAL | | | | | | CENTER - | | | | | | LABORATORY | | + + + + + + | Globulin | 2.7 | 2.1 - 3.8 g/dL | [facility] | | | | | | [facility] | | | | | | [facility]ICAL | | | | | | CENTER - | | | | | | LABORATORY | | + + + + + + | Albumin/Ivon | 1.4 | 0.8 - 1.9 | [facility] | | | bulin Ratio | | | [facility] | | | | | | MEDICAL | | | | | | CENTER - | | | | | | LABORATORY | | + + + + + + | BUN/Creatin | 9.8 | | [facility] | | | ine [...] ST. | [address] | [place], [place] | [phone] | | [facility] | | [address] | | | - LABORATORY | | | | + + + + + CBC with Differential (05/29/2019 12:30 PM PST) + + + + + + | Component | Value | Ref Range | Performed | Pathologist | | | | | At | Signature | + + + + + + | WBC | 6.3 | 4.0 - 11.0 K/uL | [facility] | | | | | | [facility] | | | | | | MEDICAL | | | | | | CENTER - | | | | | | LABORATORY | | + + + + + + | RBC | 4.34 | 4.30 - 5.70 | [facility] | [...] + + + + | Hematocrit | 41.0 | 40.0 - 51.0 % | [facility] | | | | | | [facility] | | | | | | MEDICAL | | | | | | CENTER - | | | | | | LABORATORY | | + + + + + + | MCV | 94.5 | 83.0 - 101.0 fL | [facility] | | | | | | [facility] | | | | | | [facility]ICAL | | | | | | CENTER - | | | | | | LABORATORY | | + + + + + + | MCH | 31.3 | 28.0 - 35.0 pg | [facility] | | | | | | [facility] | | | | | | [facility]ICAL | | | | | | CENTER - | | | | | | LABORATORY | | + + + + + + | MCHC | 33.2 | 32.0 - 36.0 | [facility] | | | | | g/dL | [facility] | | | | | | MEDICAL | | | | | | CENTER - | | | | | | LABORATORY | | + + + + + + | RDW-CV | 14.4 | <15.0 % | [facility] | | | | | | [facility] | | | | | | [facility] | | | | | | CENTER - | | | | | | LABORATORY | | + + + + + + | RDW-SD | 49.6 (H) | 35.1 - 46.3 fL | [facility] | | | | | | [facility] | | | | | | [facility]ICAL | | | | | | CENTER - | | | | | | LABORATORY | | + + + + + + | Platelet | 269 | 140 - 440 K/uL | [facility] | | | Count | | | [facility] | | | | | | MEDICAL | | | | | | CENTER - | | | | | | LABORATORY | | + + + + + + | MPV | 12.9 (H) | 6.5 - 12.4 fL | [facility] | | | | | | [facility] | | | | | | [facility] | | | | | | CENTER - | | | | | | LABORATORY | | + + + + + + | % | 63.7 | 45.0 - 82.0 % | [facility] | | | Neutrophils | | | [facility] | | | | | | MEDICAL | | | | | | CENTER - | | | | | | LABORATORY | | + + + + + + | % | 28.6 | 20.0 - 45.0 % | [facility] [...] + + + + | % | 1.4 | 0.0 - 5.0 % | [facility] [...] + + + | % Immature | 0.2 | 0.0 - 0.4 % | [facility] | | | Granulocyte | | | [facility] | | | s | | | MEDICAL | | | | | | CENTER - | | | | | | LABORATORY | | + + + + + + | Absolute | 3.98 | 1.80 - 8.50 | [facility] | [...] + + + + | Absolute | 0.33 | 0.00 - 1.00 | [facility] | | | Monocytes | | K/uL | [facility] | | | | | | MEDICAL | | | | | | CENTER - | | | | | | LABORATORY | | + + + + + + | Absolute | 0.09 | 0.00 - 0.40 | [facility] | [...] | Absolute | 0.01 | 0.00 - 0.03 | [facility] | | | Immature | | K/uL | [facility] | | | Granulocyte | | | MEDICAL | | | s | | | CENTER - | | | | | | LABORATORY | | + + + + + + | % nRBC | 0 | 0 - 2 per 100 | [facility] | | | | | WBCs | [facility] | | | | | | MEDICAL | | | | | | CENTER - | | | | | | LABORATORY | | + + + + + + | Absolute | 0.00 | 0.00 - 0.01 | [facility] | | | nRBC | | K/uL [...] [address] | [place] | [phone] | | [facility] | | [address] | | | - LABORATORY | | | | + + + + + documented in this encounter Visit Diagnoses + + | Diagnosis | + + | Gangrene, not elsewhere classified (HCC) | + + | Osteomyelitis, unspecified (HCC) | + + documented in this encounter"
--- OUTSIDE RECORDS SUMMARY | ~2019-09-14 | XMS | Encounter Summary ---
Demographics + + + | Address | [address] | | | [place] [address] | + + + | Home Phone [...] + | Author | [facility] | | | and [facility] | + + + | Organization | [facility] | | | and [...] | | | | | [place] [address] | | + + + + + Care Team Providers + +------+ + | Care Acetone Recovery Worker Name | Role | Phone | + +------+ + | Shi Miramontes | PCP | | + +------+ + Reason for Visit + + + | Reason | Comments | + + + | Referral | | + + + Encounter Details +--------+ + + + + | Date | Type | Department | Care Team | Description | +--------+ + + + + | 01/07/ | Telephone | [facility] | Vj [place] MD | Referral | | 2020 | | VASCULAR SURGERY | [address] | | | | | [address] | [place], [place] | | | | | [place], [place] | [address] | | | | | [address] | | | | | | [phone] | | | +--------+ + + + [...]
--- OUTSIDE RECORDS SUMMARY | ~2019-09-14 | XMS | Encounter Summary ---
Demographics + + + | Address | [address] | | | [place] [address] | + + + | Home Phone | | + + + | Preferred Language | Unknown | + + + | Marital Status | Single | + + + | Buddhism Affiliation | Unknown | + + + | Race | Unknown | + + + | Ethnic Group | Unknown | + + + Author + + + | Author | [facility] | | | and [facility] | + + + | Organization | [facility] | | [...] | | | | | [place] [address] | | + + + + + Care Team Providers + +------+ + | Care Engineering Documentation Specialist Name | Role | Phone | + [...] | | | | | Procedures | [place], [place] | | | | | | IR Angiogram | [address] | | | | | | Lower | Phone: | | | | | | Extremity | [phone] | | | | | | Left | Fax: | | | | | | | [phone] | | +--------+--------+ + + + + Reason for Visit Auth/Cert +--------+--------+ + [...] | | | | | | | (FORM[facility]) | | | | | | | [...] | +--------+ + + + + | 07/04/ | Hospital | [facility] | Madi Linares MD | Diabetes mellitus | | 2020 - | Encounter | [facility] [address] | [address] | type II, ORAL | | | | [address] | [address] | Control (Primary | | 07/07/ | | [place], [place] | [place] [address] | Dx); PAD (peripheral | | 2020 | | [address] | [phone] | artery disease) | | | | [phone] | | ([facility]); Smoker - | | | | | Mustapha Wang, | Daily; PAD | | | | | DPM [address] | (peripheral artery | | | | | [address], | disease) ([facility]LY [facility]); | | | | | [place] [address] | Amputation stump | | | | | [phone] | infection ([facility]); | | | | | | Osteomyelitis of | | | | | Fabian Frias MD | foot, left, acute | | | | | [address] | ([facility]); Diabetes | | | | | [place] [address] | mellitus type II, | | | | | [phone] | non insulin | | | | | | dependent ([facility]); | | | | | Chaparro Good | Smoker | | | | | MD Parveen Howard | | | | | | [place], [place] | | | | | | [address] | | | | | | | [...] be differe nt from the original. [facility] Service: Hospitalist Physician Discharge Summary Pt: Paul Bunn AGE/SEX: 73 y.o. male ROOM: [facility]/415- PCP: ANATOLY Rawls : 1945 Admit date: 07/04/2019 Discharge date and time: 07/07/2019 Admitting Physician: Mdai Linares MD Discharge Physician: Chaparro Good MD [...] tarsal bones. Patient is curre ntly on [facility] as per Dr. Diallo. Previous wound culture [...] thought that patient would benefit from going long term facility. However patient insists on going home. Patient has a very caring daughte r who is willing to take care of [...] hours. No results for input(s): PHART, PO2ART, SEK6YBL, B2ZQLSGR, BEART in the last 168 hours. No [...] 4 mg by Nasal route as needed. Winona 1 dose in nose as directed as [...] Good MD 07/07/2019 12:08 PM Dictation software, [employer] used which may contain errors for similar [...] urinate in 8 hours Date Last Reviewed: 09/22/201519990639-2399 [employer]. [address] [place] [address]. All righ ts reserved. This information is [...] | 4 mg/nasal spray | as needed. Winona 1 | | | | | | [...] lozenge should | 72 | 0 | /16/20 | | | polacrilex (COMMIT) | be [...] by IV Push | | 0 | 12/17/20 | | | Flush (NORMAL SALINE | [...] NGA 07/07/2019 @ 1239 12: 39 PM Ashley Lawton MD - 07/07/2019 10:14 AM PSTFormatting of this note mi ght be different from the original. [facility] Service: Infectious Diseases Progress Note Hospital Day: [...] post evaluation by vascular surgery Dictation software, [employer], used which may contain error for similar sounding words even af ter review. Personal communication requested for any clarification. Portions of this chart may have been copied from previous notes for continuity of care purp chandrika Diallo MD Infectious Diseases 07/07/2019 Demetrice Gilman RN - 07/06/2019 6:11 PM PSTEnd of shift chart check complet e Mustapha Healy DPM - 07/06/2019 4:[address] [facility] Service: Foot and Ankle Surgery (Podiatry) Progress [...] for appt Code Status: Full Code Mustapha Wang, SLIM 07/07/2019 This document has been prepared with a voice recognition system. The possibility of "sound alike" last model department supervisor errors, addition and/or deletions may occur. If there is any question p lease contact the author of the document. Ashley Lawton MD - 07/06/2019 9:45 AM PSTFormatting of this note might be different from the or iginal. [facility] Service: Infectious Diseases Progress Note Hospital Day: [...] post evaluation by vascular surgery Dictation software, [employer], used which may contain error for similar sounding words even af ter review. Personal communication requested for any clarification. Portions of this chart may have been copied from previous notes for continuity of care purp chandrika Diallo MD Infectious Diseases 07/06/2019 Chaparro Ng MD - 07/06/2019 8:19 AM PSTFormatting of this note might be different from rebeca lakhani original. [facility] Service: Hospitalist Progress Note Hospital Day: LOS: [...] in cm/sec, waveform analysis: Left lower extremity: TREAD BUILDER prox: 254, biphasic DFA prox: 270, biphasic SFA prox: 307, monophasic SFA dist: 253, monophasic Pop mid: 36, monophasic IPETER prox: 43, monophasic PIETER dist: 21, monophasic CREDIT PRODUCT ANALYST prox: 39, monophasic CREDIT PRODUCT ANALYST dist: 28, monophasic Peroneal prox: 10, monophasic Peroneal dist: 9, monophasic Right brachial systolic blood pressure: 130 4 mm Hg Left brachial systolic blood pressure 138 mmHg Right above the knee amputation. Left posterior tibial: 45 mm Hg, BERT 0.33 Left dorsalis pedis: 35, BERT 0.25 Transmetatarsal amputation. Monophasic waveforms at the left ankle sites. Impression 1. Biphasic TREAD BUILDER inflow. 2. 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 Will follow [facility] recommendations for antibiotic use per Dr. Diallo. [...] Code Chaparro Good MD 07/06/2019 Dictation software, [employer] used which may contain errors for similar [...] PSTCalled Dr. Linares for orders for pt CREDIT PRODUCT ANALYST meds for overnight stay. Left message for MD. docume nted in this encounter Plan of [...] the | | | | PST | ([facility]) Diabetes | results section. | | | | | mellitus type II, | | | | | | non insulin | | | | | | dependent ([facility]) | | | | | | Smoker | | + +--------+ + + + | AMPUTATION | | 07/05/2019 | PAD (peripheral | | | TRANSMETATARSAL | | 3:38 PM | artery disease) | | | | | PST | ([facility]) Diabetes | | | | | [...] the | | | | PST | ([facility]) | results section. | + +--------+ [...] | | | POC | performed at [facility] | | LABORATORY | | | | [address];[place] | | | | | | [address] | | | | + + + + + + + + | Specimen | + + | | + + + + + + + | Performing | Address | City/State/Zipcode | Phone Number | | Organization | | | | + + + + + | [facility] | [address] | [place] [address] | [phone] | + + + + + Basic [...] | >60Comment: GFR <60: | >60 | [facility] | | | GFR | CHRONIC KIDNEY [...] | | | | | | MDRD IDMN traceable | | | | | | equation.Testing | | | | | | performed at [facility] | | | | | | [facility];[place], [place] | | | | | | [address] | | | | + + + + + + + + | Specimen | + + | Blood | + + + + + + + | Performing | Address | City/State/Zipcode | Phone Number | | Organization | | | | + + + + + | [facility] | [address] | [place] [address] | [phone] | + + + + + POC Glucose (07/06/2019 9:26 PM PST) + + + + + + | Component | Value | Ref Range | Performed | Pathologist | | | | | At | Signature | + + + + + + | Glucose, | 106 (H)Comment: Testing | 65 - 99 mg/dL | [facility] | | | POC | performed at [facility] | | LABORATORY | | | | [address];[place] | | | | | | [address] | | | | + + + + + + + + | Specimen | + + | | + + + + + + + | Performing | Address | City/State/Zipcode | Phone Number | | Organization | | | | + + + + + | [facility] | [address] | [place] [address] | [phone] | + + + + + POC Glucose (07/06/2019 4:28 PM PST) + + + + + + | Component | Value | Ref Range | Performed | Pathologist | | | | | At | Signature | + + + + + + | Glucose, | 136 (H)Comment: Testing | 65 - 99 mg/dL | [facility] | | | POC | performed at [facility] | | LABORATORY | | | | [address];[place] | | | | | | [address] | | | | + + + + + + + + | Specimen | + + | | + + + + + + + | Performing | Address | City/State/Zipcode | Phone Number | | Organization | | | | + + + + + | [facility] | [address] | [place] [address] | [phone] | + + + + + POC Glucose (07/06/2019 12:10 PM PST) + + + + + + | Component | Value | Ref Range | Performed | Pathologist | | | | | At | Signature | + + + + + + | Glucose, | 192 (H)Comment: Testing | 65 - 99 mg/dL | [facility] | | | POC | performed at [facility];[address] | | LABORATORY | | | | [address];[place], [place] | | | | | | [address] | | | | + + + + + + + + | Specimen | + + | | + + + + + + + | Performing | Address | City/State/Zipcode | Phone Number | | Organization | | | | + + + + + | [facility] | [address] | [place] [address] | [phone] | + + + + + POC [...] | | | POC | performed at [facility];[address] | | LABORATORY | | | | [address];[place] | | | | | | [address] | | | | + + + + + + + + | Specimen | + + | | + + + + + + + | Performing | Address | City/State/Zipcode | Phone Number | | Organization | | | | + + + + + | [facility] | [address] | [place] [address] | [phone] | + + + + + POC Glucose (07/05/2019 9:01 PM PST) + + + + + + | Component | Value | Ref Range | Performed | Pathologist | | | | | At | Signature | + + + + + + | Glucose, | 146 (H)Comment: Testing | 65 - 99 mg/dL | [facility] | | | POC | performed at [facility];[address] | | LABORATORY | | | | [address];[place], [place] | | | | | | [address] | | | | + + + + + + + + | Specimen | + + | | + + + + + + + | Performing | Address | City/State/Zipcode | Phone Number | | Organization | | | | + + + + + | [facility] | [address] | [place] [address] | [phone] | + + + + + XR [...] surgical prashanth are in place. Signed by: Jerome | | | Sarbjit Doll Date/Time: 07/05/2019 5:50 PM | | + [...] + | Raymundo Kaminski Results In - 07/05/2019 5:53 PM PST [...] Testing | 65 - 99 mg/dL | [facility] | | | POC | performed at [facility];[address] | | LABORATORY | | | | [address];[place] | | | | | | [address] | | | | + + + + + + + + | Specimen | + + | | + + + + + + + | Performing | Address | City/State/Zipcode | Phone Number | | Organization | | | | + + + + + | [facility] | [address] | [place] [address] | [phone] | + + + + + Surgical [...] red and focally | | | friable. Drop Wire Stringer sections are submitted as follows:(A1) | | | Metatarsal bone margins following decalcification(A2) Perpendicular | | | sections of ulceration and skin margin(A3) Middle two metatarsal heads | | | following decalcification(A4) Drop Wire Stringer sections of skin | | | margin.SS [...] | | technical component was performed by [employer], [address] [place] [address] | | [place] [address] (Musical Instrument Maker: Amirah Garcia MD; CLIA# | | | [id number]). Professional interpretation was performed [employer] | | | [employer], | | | [place] [address] (Musical Instrument Maker: Mustapha Woods M.D.; CLIA#: | | | [id number]). Diagnostician: Merlin Johnson MD. | | | MPHPathologistElectronically Signed 07/07/2019 | | | | | |PERFORMING LABORATORY: | | |The technical component was performed by [employer], [address] [place] [address] (Musical Instrument Maker: Amirah Garcia MD; CLIA# [id number]). Professional interpretation was performed by | | |[employer], [address] [address] (Musical Instrument Maker: Mustapha Woods M.D.; CLIA#: [id number]). | | | | | |Diagnostician: Merlin Johnson MD. [facility] | | |Pathologist | | |Electronically Signed [...] + + + + | SOURCE: | NARES(NOSE) | | [facility] | | | | | | LABORATORY | | + + + + + + | Result | NEGATIVEComment: Testing | MRSNEG | [facility] | | | | performed at [facility] | | LABORATORY | | | | [address];[place] | | | | | | [address] | | | | + + + + + + + + | Specimen | + + | Tissue - Both | | anterior nares (body | | structure) | + + + + + + + | Performing | Address | City/State/Zipcode | Phone Number | | Organization | | | | + + + + + | [facility] | [address] | [place] [address] | [phone] | + + + + + Basic [...] | | | | | | MDRD [facility] traceable | | | | | | equation.Testing | | | | | | performed at [facility];[address] | | | | | | [facility];[place], [place] | | | | | | [address] | | | | + + + + + + + + | Specimen | + + | Blood | + + + + + + + | Performing | Address | City/State/Zipcode | Phone Number | | Organization | | | | + + + + + | [facility] | [address] | [place] [address] | [phone] | + + + + + CBC [...] | | | Absolute | performed at [facility];[address] | K/uL | LABORATORY | | | | [facility];[place], [place] | | | | | | [address] | | | | + + + + + + + + | Specimen | + + | Blood | + + + + + + + | Performing | Address | City/State/Zipcode | Phone Number | | Organization | | | | + + + + + | [facility] | [address] | [place] [address] | [phone] | + + + + + IR Angiogram Lower Extremity Left (07/04/2019 1:50 PM PST) + + | Specimen | + + | | + + + + --+ | Narrative | Performed At | + + --+ | [facility] | [facility] | | [facility]: Vascular SurgeryProcedure Note | | | NAME: Paul Bunn MR #: [id number]: 1945 DATE OF | | | PROCEDURE: 07/04/2019SURGEON: Madi Linares [facility]ISTANT: None | | | PREOPERATIVE DIAGNOSIS:1. Left [...] DETAIL: The patient was taken to the asphalt plant laborer and placed on the | | [...] was able to pass and a 5 Iranian sheath was | | | placed. Using a Glidewire and catheter I was able to cross the | | | occluded superficial femoral artery. Contrast injection at the level | | | of the popliteal artery showed a patent popliteal artery with | | | three-vessel runoff in the lower extremity. I then advanced a Storq | | | wire to the below-knee [...] catheter and wire was removed. The 5 Iranian sheath was removed and | | | [...] Vascular Surgery Dictation software, | | | [employer], used which may contain error for similar [...] to pass and a 5 | | |Iranian sheath was placed. Using a Glidewire and catheter I was able to | | |cross the occluded superficial femoral artery. Contrast injection at the | | |level of the popliteal artery showed a patent popliteal artery with | | |three-vessel runoff in the lower extremity. I then advanced a Storq wire | | |to the below-knee popliteal [...] catheter and wire was removed. The 5 Iranian sheath was removed and | | |the [...] | | | | | |Dictation software, [employer], used which may contain error for similar [...] Testing | 65 - 99 mg/dL | [facility] | | | POC | performed at [facility];[address] | | LABORATORY | | | | [address];[place], [place] | | | | | | [address] | | | | + + + + + + + + | Specimen | + + | | + + + + + + + | Performing | Address | City/State/Zipcode | Phone Number | | Organization | | | | + + + + + | [facility] | [address] | [place] [address] | [phone] | + + + + + CBC [...] [facility] | | | | performed at [facility];[address] | | LABORATORY | | | | [address];[place], [place] | | | | | | [address] | | | | + + + + + + + + | Specimen | + + | Blood | + + + + + + + | Performing | Address | City/State/Zipcode | Phone Number | | Organization | | | | + + + + + | [facility] | [address] [facility] | [place] [address] | [phone] | + + + + + Basic [...] | 8.8 | 8.5 - 10.5 | [facility] | | | | | mg/dL | LABORATORY | | + + + + + + | Estimated | >60Comment: GFR <60: | >60 | [facility] | | | GFR | CHRONIC KIDNEY [...] | | | | | performed at [facility];[address] | | | | | | [facility];[place], [place] | | | | | | [address] | | | | + + + + + + + + | Specimen | + + | Blood | + + + + + + + | Performing | Address | City/State/Zipcode | Phone Number | | Organization | | | | + + + + + | [facility] | [address] | [place] [address] | [phone] | + + + + + documented [...] as uncontrolled | + + | Smoker - Daily Tobacco use disorder | + + | 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 | + + | Osteomyelitis of foot, left, acute (HCC) Acute osteomyelitis, ankle and foot | + + | Hypertension Unspecified essential hypertension | + + | GERD (gastroesophageal reflux disease) Esophageal reflux | + + documented in this encounter [...] | | | | First dose on 07/04/19 at 2100 | | PM PST | | | | + +-------+ +-------+---+---+ +-------+ +-------+---+---+ | Given | 07/05/19 | 10 mg | | | | [...] + +---------+ +-----+-------+---+ | ceFAZolin in dextrose (ANCEF) | New Bag | 07/04/19 | 2 g | 200 | | | IVPB 2 g 2 g, Intravenous, | | 20 2:00 | | mL/hr | | | Administer over 30 Minutes, ONCE, | | PM PST | | | | | 07/04/19 at 0930, For 1 dose, | | | | | | | Keep in refrigerator., | | | | | | | Indications: Surgical Prophylaxis | | | | | | + +---------+ +-----+-------+---+ +---+---+ | | | +---+---+ + +---------+ [...] | | | | | dose on Wed07/05/19 at 0900 | | AM PST | [...] + +-------+ +-------+---+---+ | clopidogrel (PLAVIX) tablet | Given | 07/04/19 | 75 mg | | | | Oral, PRN, Starting Tu07/04/19 | | 20 3:21 | | | | | at 1521 | | PM PST | | | [...] CONTINUOUS PRN, hypoglycemia, | | | Starting 07/05/19 at 1332, | | | Start infusion [...] HOURS PRN, Itching, Starting | | | 07/05/19 at 1800, Oral route | | | is preferred., Post-op/Phase II | | + +---+ | | | + +---+ | diphenhydrAMINE (BENADRYL) | | | injection 12.5 mg 12.5 mg, | | | Intravenous, EVERY 4 HOURS PRN, | | | Itching, Starting 07/05/19 at | | | 1800, Oral route is preferred., | | | Post-op/Phase II | | + +---+ | | | + +---+ + +-------+ +--------+---+---+ | docusate sodium (COLACE) | Given | 07/06/19 | 200 mg | | | | capsule 200 mg 200 mg, Oral, 2 | | 20 8:57 | | | | | TIMES [...] | +---+---+ + +-------+ +--------+---+---+ | fentaNYL (PF) injection | Given | 07/04/19 | 50 mcg | | | | Intravenous, PRN, Starting Tue | | 20 3:03 | | | | | 07/04/19 at 1412 | | PM PST | | | | + +-------+ +--------+---+---+ +-------+ +--------+---+---+ | Given | 07/04/19 | 50 mcg | | | | | 20 2:45 | | | | | | PM PST | | | | +-------+ +--------+---+---+ | Given | 07/04/19 | 50 mcg | | | | | 20 2:12 | | | | | | PM [...] | | +---+---+ + +-------+ +--------+---+---+ | heparin 1,000 units/mL | Given | 07/04/19 | 5,000 | | | | injection Intravenous, PRN, | | 20 2:47 | Units | | | | Starting [facility] 07/04/19 at 1447 | | PM PST | | | [...] | | | | dose on Nelida 07/06/19 at 0900 | | | | | [...] | | | | SBP >180, Starting Wed07/04/19 at | | | | | | | 1618 | | | | | | + +-------+ +-------+---+---+ +---+---+ | | | +---+---+ + +-------+ + +---+---+ | HYDROcodone-acetaminophen | Given | 07/05/19 | 1 tablet | | | | (NORCO) 10-325 mg per tablet 1 | | 20 9:31 | | | | | tablet 1 tablet, Oral, 4 TIMES | | AM PST | | | | | DAILY PRN, Pain, Starting Tue | | | | | | | 07/04/19 at 1854 | | | | | | + +-------+ + +---+---+ +-------+ + +---+---+ | Given | 07/05/19 | 1 tablet | | | | | 20 4:42 | | | | | | AM PST | | | | +-------+ + +---+---+ | Given | 07/05/19 | 1 tablet | | | | | 20 1:02 | | | | | | AM PST | | | | +-------+ + +---+---+ +---+---+ | | | +---+---+ + +-------+ + +---+---+ | HYDROcodone-acetaminophen | Given | 07/04/19 | 1 tablet | | | | (NORCO) 5-325 mg per tablet 1-2 | | 20 5:49 | | | | | tablet 1-2 tablet, Oral, EVERY 6 | | PM PST | | | | | HOURS PRN, Pain, Starting Tue | | | | | | | 07/04/19 at 1548 | | | | | | + +-------+ + +---+---+ +-------+ + +---+---+ | Given | 07/04/19 | 1 tablet | | | | | 20 5:18 | | | | | | PM [...] scheduled: | | | AC, NPO, Daytime 7800-4702 Use | | | NIGHT DOSE for doses scheduled: | | | HS, 3AM, Nighttime 7783-7568 | | | If the BG is not checked before | | | the patient starts eating, do not | | | give correction insulin. If HS | | | insulin given, check blood | | | glucose at 3AM. Only for use with | | | U-100 insulin syringe., | | + +---+ | | | + +---+ + +-------+ +--------+---+---+ | iohexol (OMNIPAQUE 240) 240 | Given | 07/04/19 | 50 mLs | | | | mg/mL injection Intravenous, | | 20 3:27 | | | | | PRN, Starting Wed07/04/19 at 1527 | | PM PST | | | | + +-------+ +--------+---+---+ +---+---+ | | | +---+---+ + +-------+ +--------+---+---+ | lidocaine 1% injection PRN, | Given | 07/04/19 | 10 mLs | | | | Starting Wed07/04/19 at 1411 | | 20 2:11 | | | | | | | PM [...] midazolam (VERSED) 1 mg/mL | Given | 07/04/19 | 1 mg | | | | injection Intravenous, PRN, | | 20 2:45 | | | | | Starting 07/04/19 at 1412 | | PM PST | | | | + +-------+ +------+---+---+ +-------+ +------+---+---+ | Given | 07/04/19 | 1 mg | | | | | 20 2:12 | | | | | | PM [...] | | +---+---+ + +-------+ +-------+---+---+ | povidone-iodine 5 % external | Given | 07/05/19 | 4 mLs | | | | solution Topical, PRN, Other, | | 20 3:26 | | | | | pre-op, Starting 07/05/19 at | | PM PST | | | | | 1358, For 1 dose, Pre-op | | | | | | [...] | | | | | dose on Tu07/04/19 at 2100 | | PM PST | [...]
--- OUTSIDE RECORDS SUMMARY | ~2019-09-14 | XMS | Encounter Summary ---
Demographics + + + | Address | [address] | | | [place] [address] | + + + | Home Phone | | + + + | Preferred Language | Unknown | + + + | Marital Status | Single | + + + | Buddhist Affiliation | Unknown | + + + | Race | Unknown | + + + | Ethnic Group | Unknown | + + + Author + + + | Author | [facility] | | | [facility] | + + + | Organization | [facility] | | | [...] | | | | | [place] [address] | | + + + + + Care Team Providers + +------+ + | Care Gasoline Attendant Name | Role | Phone | + +------+ + PCP | Unavailable | + +------+ + Encounter Details +--------+ + + + + | Date | Type | Department | Care Team | Description | +--------+ + + + + | 03/19/ | Hospital | [facility] GENER[facility] OP | Conversion | Cervical spinal | | 2002 | Encounter | CONVERSION [address]P [address] | Transaction, | stenosis | | | | [address] | Provider Unknown | | | | | [place], [place] | | | | | | [phone] | (Fax) | | | | | | | [...] + | Diagnosis | + + | Cervical spinal stenosis Spinal stenosis in cervical region | + + documented in this encounter"
--- OUTSIDE RECORDS SUMMARY | ~2019-09-14 | XMS | Encounter Summary ---
Demographics + + + | Address | [address] | | | [place] [address] | + + + | Home Phone | | + + + | Preferred Language | Unknown | + + + | Marital Status | Single | + + + | Faith Affiliation | Unknown | + + + | Race | Unknown | + + + | Ethnic Group | Unknown | + + + Author + + + | Author | [facility] | | | and [facility] | + + + | Organization | [facility] | | | and [...] | | | | | [place] [address] | | + + + + + Care Team Providers + +------+ + | Care Analyst Competitive Intelligence Name | Role | Phone | + +------+ + | Shi Miramontes | PCP | | + +------+ + Reason for Visit + + + | Reason | Comments | + + + | Hospital Follow-up | appointment | + + + Encounter Details +--------+ + + + + | Date | Type | Department | Care Team | Description | +--------+ + + + + | 07/11/ | Telephone | [facility] | Madi Linares MD | Hospital Follow-up | | 2020 | | VASCULAR SURGERY | [address] | (appointment) | | | | [address] | [address] [facility] | | | | | E [place], [place] | [place] [address] | | | | | [address] | [phone] | | | | | [phone] | | | +--------+ + + + [...]
--- OUTSIDE RECORDS SUMMARY | ~2019-09-14 | XMS | Encounter Summary ---
Demographics + + + | Address | [address] | | | [place] [address] | + + + | Home Phone [...] Author + + + | Author | [facility] | | | and [facility] | + + + | Organization | [facility] | | [...] | | | | | [place] [address] | | + + + + + Care Team Providers + +------+ + | Care Clinical Studies Specialist Name | Role | Phone | + +------+ + | Debora Butts | PCP | | + +------+ + Encounter Details +--------+ + + + + | Date | Type | Department | Care Team | Description | +--------+ + + + + | 10/27/ | Hospital | [facility] | Conversion | Pain | | 2016 | Encounter | CONVERSION DEP 888 | Transaction, | | | | | [address] [place] | Provider Unknown | | | | | [place] | [phone] | | | | | [address] | | | | | | [phone] | | | +--------+ + + + [...] | + + + +---------+--------+ + | MULTIPLE | Take 1 tablet by | | 0 | | | | VITAMINS-MINERALS PO | mouth Daily. | | | | | + + + +---------+--------+ + | omeprazole | Take 20 mg [...] | + + + +---------+--------+ + | clotrimazole | Apply topically 2 | | 0 | | | | (LOTRIMIN) 1% cream | times daily. | | | | 7 | + + + +---------+--------+ + | cyanocobalamin | Take 500 mcg by | | 0 | | | | (VITAMIN B-12) 500 | mouth Daily. | | | | 7 | | mcg tablet | | | | | | + + + +---------+--------+ + | fish oil 1,000 mg | Take 1,000 mg by | | 0 | | | | capsule | mouth Daily. | | | | 7 | + + + +---------+--------+ + | [...] | + + + +---------+--------+ + | glucose blood | by In Vitro route as | | 0 | | | | test strips strip | needed. | | | | 9 | + + + +---------+--------+ + | | Take 1 tablet by | | 0 | | | | HYDROcodone-acetamin | mouth 4 times daily | | | | 9 | | ophen (NORCO) 10-325 | as needed for Pain. | | | | | | mg per tablet | | | | | | + + + +---------+--------+ + | lactobacillus | Take 2 tablets by | | 0 | | | | (FLORANEX) tablet | mouth 3 times daily. | | | | 7 | + + + +---------+--------+ + | [...] + + + +---------+--------+ + | | Apply topically | | 0 | | | | Silver-Carboxymethyl | Every 3 days. | | | | 9 | | cellulose | | | | | | | (AQUACEL-AG | | | | | | | HYDROFIBER) | | | | | | | 0.39"X18" MISC | | | | | | + + + +---------+--------+ + | Wound Dressings | Apply topically. | | 0 | | | | (MEPILEX EX) | | | | | 9 | + + + +---------+--------+ + documented as of this encounter Plan of Treatment Not on filedocumented as of this encounter Procedures + +--------+ + + + | Procedure Name | Priori | Date/Time | Associated Diagnosis | Comments | | | ty | | | | + +--------+ + + + | CT HEAD WO CONTRAST | Routin | 09/26/2015 | | Results for this | | | e | 10:23 AM | | procedure are in the | | | | PDT | | results section. | + +--------+ + + + documented in this encounter Results CT Head wo Contrast (09/26/2015 10:23 AM PDT) + + | Specimen | + + | | + + + + + | Narrative | Performed At | + + + | This is a non-reportable procedure without a radiologist report and | | | is used for image storage only | | + + + + + | Procedure Note | + + | Raymundo Kaminski - 01/05/2019 10:57 AM PDT This is a non-reportable procedure | | without a radiologist report and isused for image storage only | + + documented in this encounter Visit Diagnoses + + | Diagnosis | + + | Pain Generalized pain | + + documented in this encounter
--- OUTSIDE RECORDS SUMMARY | ~2019-09-14 | XMS | Encounter Summary ---
Demographics + + + | Address | [address] | | | [place] [address] | + + + | Home Phone [...] + + + | Author | [facility] | | | and [facility] | + + + | Organization | [facility] | | | [...] | | | | | [place] [address] | | + + + + + Care Team Providers + +------+ + | Care Unisaw Operator Name | Role | Phone | + +------+ + | Debora Butts | PCP | | + +------+ + Reason for Visit Diagnostic/Screening (Routine) +--------+--------+ + + + + | Status | Reason | Specialty | Diagnoses / | Referred By | Referred To | | | | | Procedures | Contact | Contact | +--------+--------+ + + + + | Closed | | Radiology | Diagnoses | | | | | | | Headache, | Benjamín | | | | | | unspecified | Debora | | | | | | headache | [employer] [address] | | | | | | type | [place] | | | | | | Procedures | Drive [place] | | | | | | CT Head w wo | [place], [place] | | | | | | Contrast | [address] | | | | | | CT Head w | Phone: | | | | | | Contrast | [phone] | | | | | | | Fax: | | | | | | | [phone] | | +--------+--------+ + + + + Encounter Details +--------+ + + + + | Date | Type | Department | Care Team | Description | +--------+ + + + + | 09/25/ | Hospital | [facility] | [place], | Headache, | | 2016 | Encounter | [facility] [address] | Debora [employer] [address] | unspecified headache | | | | [place], | [address] | type | | | | [place] [address] | [place], [place] | | | | | [phone] | [address] | | | | | | | [...] +--------+ + + + | CT HEAD W WO | Routin | 09/26/2015 | Headache, | Results for this | | CONTRAST | e | 1:56 PM | unspecified headache | procedure are in the | | | | PDT | type | results section. | + +--------+ + + + | POC BLOOD GASES | Routin | 09/26/2015 | | Results for this | | | e | 1:46 PM | | procedure are in the | | | | PDT | | results section. | + +--------+ + + + documented in this encounter Results CT Head w wo Contrast (09/26/2015 1:56 PM PDT) + + | Specimen | + + | | + + + + + | Narrative | Performed At | + + + | EXAM: CT HEAD W WO CONTRAST dated 09/26/2015 1:38 PM HISTORY: | [facility] | | Headache, unspecified headache type Comparison: None. | | | TECHNIQUE: Precontrast and postcontrast CT is performed from the top | | | of calvarium through the skull base. Post contrast imaging is | | | performed after the intravenous menstruation of 100 mL of Omnipaque | | | 350. Coronal and sagittal reformats are performed. DOSE: DLP | | | 1226.55 mGy-cm FINDINGS: BRAIN: There is mild cerebral | | | atrophy. There is appropriate associated prominence of the | | | ventricles. No areas of increased attenuation to suggest | | | intracranial hemorrhage. There is no mass, mass effect, or midline | | | shift. There are no abnormal extra-axial fluid or air collections. | | | There is preservation of the vu-white differentiation at this | | | time. There are mild scattered regions of periventricular and | | | subcortical white matter low density. There are 2 focal | | | hypodensities in the left basal ganglia that may represent remote | | | lacunar infarcts. Following contrast administration there are no | | | areas of abnormal parenchymal or extraparenchymal enhancement. | | | There is enhancement within the cavernous and dural venous sinuses | | | consistent with patency. There is enhancement within the major | | | intracranial vessels consistent with patency. There is no | | | suprasellar mass. SCALP/ CALVARIUM: There is a nonenhancing | | | low-density structure in the skin layer adjacent to the superior | | | lateral margin of the right orbit. This measures about a | | | centimeter. 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 This measures 6 mm. SINUSES / | | | ORBITS/ MASTOIDS: The visible mastoid air cells are clear. The | | | visible paranasal sinuses are clear. The visible globes and | | | retroconal contents are intact and are unremarkable. IMPRESSION - | | | No acute intracranial process. Mild white matter disease. 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 | | | Dictated and Signed by: Gregory Yañez MD Electronically | | | signed: 09/26/2015 3:15 PM | | + + + + + | Procedure Note | + + | Gordy, Rad Results In - 09/26/2015 3:18 PM PDT EXAM: CT HEAD W WO CONTRAST dated | | 09/26/2015 1:38 PMHISTORY: Headache, unspecified headache typeComparison: None.TECHNIQUE: | | Precontrast and postcontrast CT is performed from the top ofcalvarium through the skull | | base. Post contrast imaging is performed after theintravenous menstruation of 100 mL | | of Omnipaque 350. Coronal and sagittalreformats are performed.DOSE: DLP 1226.55 | | mGy-cmFINDINGS: BRAIN: There is mild cerebral atrophy. There is appropriate | | associatedprominence of the ventricles. No areas of increased attenuation to | | suggestintracranial hemorrhage. There is no mass, mass effect, or midline shift. There | | are no abnormal extra-axial fluid or air collections. There ispreservation of the | | vu-white differentiation at this time. There are mildscattered regions of | | periventricular and subcortical white matter low density. There are 2 focal | | hypodensities in the left basal ganglia that may representremote lacunar infarcts. | | Following contrast administration there are no areasof abnormal parenchymal or | | extraparenchymal enhancement. There is enhancementwithin the cavernous and dural venous | | sinuses consistent with patency. There isenhancement within the major intracranial | | vessels consistent with patency. There is no suprasellar mass.SCALP/ CALVARIUM: There is | | a nonenhancing low-density structure in the skinlayer adjacent to the superior lateral | | margin of the right orbit. This measuresabout a centimeter. There is a calvarial | | osteoma just right of midline in theright frontal calvarium. This measures 6 mm.SINUSES | | / ORBITS/ MASTOIDS: The visible mastoid air cells are clear. Thevisible paranasal | | sinuses are clear. The visible globes and retroconal contentsare intact and are | | unremarkable.IMPRESSION -No acute intracranial process.Mild white matter disease. 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 There is | |enhancement within the major intracranial vessels consistent with patency. | |There is no suprasellar mass. | | | |SCALP/ CALVARIUM: There is a nonenhancing low-density structure in the skin | |layer adjacent to the superior lateral margin of the right orbit. This measures | |about a centimeter. 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 This measures 6 mm. | | | |SINUSES / ORBITS/ MASTOIDS: The visible mastoid air cells are clear. The | |visible paranasal sinuses are clear. The visible globes and retroconal contents | |are intact and are unremarkable. | | | |IMPRESSION - | | | |No acute intracranial process. | | | |Mild white matter disease. 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 | | | | | | | |Dictated and Signed by: Gregory Yañez MD | | Electronically signed: 09/26/2015 3:15 PM | + + + +---------+ + + | Performing | Address | City/State/Zipcode | Phone Number | | Organization | | | | + +---------+ + + | [facility] | | | | + +---------+ + + POC Blood Gases (09/26/2015 1:46 PM PDT) + +-------+ + + + | Component | Value | Ref Range | Performed | Pathologist | | | | | At | Signature | + +-------+ + + + | Specimen | Vein | | [facility] | | | Source | | | [facility] | | | | | | [facility] | | | | | [facility] - | | | | | | LABORATORY | | + +-------+ + + + | Creatinine, | 0.7 | 0.5 - 1.2 mg/dL | [facility] | | | POC | | | [facility] | | | | | | [facility]ICAL | | | | | | [facility] - | | | | | | LABORATORY | | + +-------+ + + + | eGFR if not | >60 | >=60 | [facility] | | | | | mL/min/1.73m2 | [facility] | | | [facility] | | | MEDICAL | | | [...] [facility] | [place] | [phone] | | [facility] | | [address] | | | - LABORATORY | | | | + + + + + documented in this encounter Visit Diagnoses + + | Diagnosis | + + | Headache, unspecified headache type | + + documented in this encounter Administered Medications + +--------+ +---------+------+------+ | Medication Order | MAR | Action | Dose | Rate | Site | | | Action | Date | | | | + +--------+ +---------+------+------+ | iohexol (OMNIPAQUE 350) 350 | Given | 05/05/20 | 100 mLs | | | | mg/mL injection 100 mL 100 mL, | | 16 1:57 | | | | | Intravenous, ONCE PRN, Other, for | | PM PDT | | | | | CT contrast study, Starting Nelida | | | | | | | 09/26/15 at 1357, For 1 dose, | | | | | | | Radiology | | | | | | + +--------+ +---------+------+------+ +---+---+ | | | +---+---+ documented in this encounter
--- OUTSIDE RECORDS SUMMARY | ~2019-09-14 | XMS | Encounter Summary ---
Demographics + + + | Address | [address] | | | [place] [address] | + + + | Home Phone | | + + + | Preferred Language | Unknown | + + + | Marital Status | Single | + + + | Synagogue Affiliation | Unknown | + + + | Race | Unknown | + + + | Ethnic Group | Unknown | + + + Author + + + | Author | [facility] | | | and [facility] | + + + | Organization | [...] | | | | | [place] [address] | | + + + + + Care Team Providers + +------+ + | Care Student Records Coordinator Name | Role | Phone | + [...] | +--------+ + + + + | 05/21/ | Home Care | [facility] | Araseli Loredo | SN REPEAT VISIT | | 2018 | Visit | [facility] [address] | [place] | | | | | [place] | | | | | | [address] | | | | | | [phone] | | | +--------+ + + + [...] + + + | Blood Pressure | 118/72 | 05/21/2019 10:04 AM | | | | | PST | | + + + + + | Pulse | 86 | 05/21/2019 10:04 AM | | | | | PST | | + + + + + | Temperature | 36.7 C (98.1 F) | 05/21/2019 10:04 AM | | | | | PST | | + + + + + | Respiratory Rate | 18 | 05/21/2019 10:04 AM | | | | | PST | | + + + + + | Oxygen Saturation | 100% | 05/21/2019 10:04 AM | | | | | PST [...] - REPEAT VISIT | | Discipline - Detention | + + + + +--------+--------+-------+ + | Problem | Description | Start | Status | Goals | Interventio | | | | Date | | | ns | + + +--------+--------+-------+ + | Central/Midline IV | PICC right upper | | | - | 3 problem | | Disciplines: | arm | 05/09/ | Active | | | | Detention | | 2018 | | | interventio | | | | | | | ns | | | | | | | scheduled/d | | | | | | | ocumented | | | | | | | in this | | | | | | | visit | + + +--------+--------+-------+ + | HH SHARED AT RISK | At risk for | | | - | 1 problem | | FOR PRESSURE ULCER | pressure ulcer | 05/09/ | Active | | | | Disciplines: | 2018 | | | interventio | | Detention | | | | | n | | | | | | | scheduled/d | | | | | | | ocumented | | | | | | | in this | | | | | | | visit | + + +--------+--------+-------+ + | HH SHARED FALLS | Falls | | | - | 1 problem | | Disciplines: | | 05/09/ | Active | | | | Detention | | 2018 | | | interventio [...] 05/09/ | Active | | | | Detention | | 2018 | | | interventio [...] foot I&D | | | - | 2 problem | | 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 | 05/09/ | Active | | | | Detention | | 2019 | | | interventio [...] | | | | | | from [facility] site. | | | | | + [...] with 10 | | | | verbalize | | ml NS then Rocephin | | | | administration of | | 2g IV over 5 min via | | | | antibiotic Yes | | PICC daily until | | | | | | 06/15/19 (Pt's | | | [...] IV | Comple | | changed per [facility] | | Transparent and | | tj | | protocol. Infusion caps | | sterile dressing | | | | primed and changed. | | change weekly on | | | | | | Wednesday and prn. | | | | | | Next dressing change | | | | | | is due on 05/21/19. | | | | | + + +--------+--------+ + | Pressure ulcer | Problem: HH SHARED | | | | | prevention | AT RISK FOR PRESSURE | Comple | | | | Description: | ULCER | tj | | | | Instruct PT/CG in | | | | | | ways to prevent skin | | | | | | breakdown which | | | | | | includes frequent | | | | | | position changes, | | | [...] +--------+--------+ + | Fall prevention | Problem: HH SHARED | | | | | Description: RN to | FALLS | Comple | | | | assess patient | | tj | | | | history of falls at | | | | | | each home visit. RN | | | | | | to instruct fall | | | | | | prevention which | | | | | | includes assistance | | | | | | with environmental | | | [...] care | Problem: Surgical | | | See narrative | | Description: Wound | Wound | Comple | | | | type: Left toes | | [...] | Problem: HH Surgical | | | see narrative | | Description: | Wound | Comple | | | | Measure wound every | | tj | | | | 2 weeks and prn. | | | | | + + +--------+--------+ + documented in this encounter"
--- OUTSIDE RECORDS SUMMARY | ~2019-09-14 | XMS | Encounter Summary ---
Demographics + + + | Address | [address] | | | [place] [address] | + + + | Home Phone | | + + + | Preferred Language | Unknown | + + + | Marital Status | Single | + + + | Taoist Affiliation | Unknown | + + + | Race | Unknown | + + + | Ethnic Group | Unknown | + + + Author + + + | Author | [facility] | | | and [facility] | + + + | Organization | [facility] | | | [...] | | | | | [place] [address] | | + + + + + Care Team Providers + +------+ + | Care Software Development Intern Name | Role | Phone | + +------+ + PCP | Unavailable | + +------+ + Encounter Details +--------+ + + + + | Date | Type | Department | Care Team | Description | +--------+ + + + + | 03/27/ | Hospital | [facility] | Conversion | CERVICALGIA | | 2003 | Encounter | CONVERSION DEP [address] | Transaction, | | | | | [address] | Provider Unknown | | | | | [place] | | | | | | [address] | (Fax) | | | | | [phone] | | | +--------+ + + + [...] + | Diagnosis | + + | Cervicalgia | + + documented in this encounter"
--- OUTSIDE RECORDS SUMMARY | ~2019-09-14 | XMS | Encounter Summary ---
Demographics + + + | Address | [address] | | | [place] [address] | + + + | Home Phone | | + + + | Preferred Language | Unknown | + + + | Marital Status | Single | + + + | Mosque Affiliation | Unknown | + + + | Race | Unknown | + + + | Ethnic Group | Unknown | + + + Author + + + | Author | [facility] | | | and [facility] | + + + | Organization | [facility] | | | [...] | | | | | [place] [address] | | + + + + + Care Team Providers + +------+ + | Care Core Finisher Name | Role | Phone | + +------+ + PCP | Unavailable | + +------+ + Encounter Details +--------+ + + + + | Date | Type | Department | Care Team | Description | +--------+ + + + + | 02/19/ | Hospital | [facility] | Conversion | | | 2002 | Encounter | CONVERSION DEP [address] | Transaction, | | | | | [address] | Provider Unknown | | | | | [place] | | | | | | [address] | (Fax) | | | | | [phone] | | | +--------+ + + + [...]
--- OUTSIDE RECORDS SUMMARY | ~2019-09-14 | XMS | Encounter Summary ---
Demographics + + + | Address | [address] | | | [place] [address] | + + + | Home Phone | | + + + | Preferred Language | Unknown | + + + | Marital Status | Single | + + + | Catholic Affiliation | Unknown | + + + | Race | Unknown | + + + | Ethnic Group | Unknown | + + + Author + + + | Author | [facility] | | | and [facility] | + + + | Organization | [facility] | | | [...] | | | | | [place] [address] | | + + + + + Care Team Providers + +------+ + | Care Anodic Treater Name | Role | Phone | + +------+ + PCP | Unavailable | + +------+ + Encounter Details +--------+ + + + + | Date | Type | Department | Care Team | Description | +--------+ + + + + | 04/23/ | Hospital | [facility] | Conversion | Cervical spinal | | 2002 | Encounter | CONVERSION [address]P [address] | Transaction, | stenosis | | | | [address] | Provider Unknown | | | | | [place], [place] | | | | | | [address] | (Fax) | | | | | [phone] | | | +--------+ + + + [...]
--- OUTSIDE RECORDS SUMMARY | ~2019-09-14 | XMS | Encounter Summary ---
Demographics + + + | Address | [address] | | | [place] [address] | + + + | Home Phone [...] + + + | Author | [facility] | | | and [facility] | + + + | Organization | [facility] | | | and [...] | | | | | [place] [address] | | + + + + + Care Team Providers + +------+ + | Care Jacquard Loom Heddles Tier Name | Role | Phone | + [...] + + | 07/11/ | Telephone | [facility] | Dannielle Carrasco, | Follow-up | | 2019 | | VASCULAR SURGERY | Scrubber Operator | | | | | [address] | | | | | | E [place], [place] | | | | | | [address] | | | | | | [phone] | | | +--------+ + + + [...]
--- OUTSIDE RECORDS SUMMARY | ~2019-09-14 | XMS | Encounter Summary ---
Demographics + + + | Address | [address] | | | [place] [address] | + + + | Home Phone | | + + + | Preferred Language | Unknown | + + + | Marital Status | Single | + + + | Amish Affiliation | Unknown | + + + | Race | Unknown | + + + | Ethnic Group | Unknown | + + + Author + + + | Author | [facility] | | | and [facility] | + + + | Organization | [facility] | | | [...] | | | | | [place] [address] | | + + + + + Care Team Providers + +------+ + | Care Cotton Presser Name | Role | Phone | + +------+ + | Debora Butts | PCP | | + +------+ + Reason for Visit + + + | Reason | Comments | + + + | Wound Check | | + + + Encounter Details +--------+ + + + + | Date | Type | Department | Care Team | Description | +--------+ + + + + | 03/13/ | Emergency | [facility] | Alex Pascual, | Postoperative wound | | 2017 - | | [facility] | MD [address] | infection, initial | | | | CENTER [address] | [facility] [place] | encounter (Primary | | 03/14/ | | [place], [place] | [place] [address] | Dx); Decubitus ulcer | | 2017 | | [address] | [phone] | of right buttock, | | | | [phone] | | stage 2 | +--------+ + + + + Social [...] + + + | Blood Pressure | 113/55 | 03/14/2017 12:57 AM | | | | | PDT | | + + + + + | Pulse | 83 | 03/14/2017 12:26 AM | | | | | PDT | | + + + + + | Temperature | 37 C (98.6 F) | 03/13/2017 11:14 PM | | | | | PDT | | + + + + + | Respiratory Rate | 18 | 03/13/2017 11:14 PM | | | | | PDT | | + + + + + | Oxygen Saturation | 95% | 03/14/2017 12:26 AM | | | | | PDT | | + + + + + | Inhaled Oxygen | - | - | | | Concentration | | | | + + + + + | Weight | 83.9 kg (185 lb) | 03/13/2017 11:14 PM | | | | | PDT | | + + + + + | Height | 175.3 cm (5' 9") | 03/13/2017 11:14 PM | | | | | PDT | | + + + + + | Body Mass Index | 27.32 | 03/13/2017 11:14 PM | | | | | PDT | | + + + + + documented in this encounter Discharge Instructions Instructions Alex Pascual MD - 03/14/2017Polysporin to the surgical wound 3 times a d ay Take the antibiotics since prescribed Decubitus ulcer dressing changes Follow-up at the [place] Return if worse AttachmentsThe following attachments cannot be sent through Care Everywhere.Post Op Wound Saira blanchard, Infection (Pakistani)Wound Care (Pakistani)documented in this encounter Medications at Time of [...] + + + +---------+ + + | celecoxib | Take 200 mg by mouth | | 0 | | | | (CELEBREX) 200 mg | 2 times daily. | | | | 9 | | capsule | | | | | | + + + +---------+ + + | clindamycin | Take 1 capsule by | 40 | 0 | 03/14/20 | | | (CLEOCIN) 300 MG | mouth 4 times daily | capsule | | 17 | 7 | | capsule | for 10 days. | | | | | + + + +---------+ + + | clotrimazole | Apply topically 2 | | 0 | | | | (LOTRIMIN) 1% cream | times daily. | | | | 7 | + + + +---------+ + + | cyanocobalamin | Take 500 mcg by | | 0 | | | | (VITAMIN B-12) 500 | mouth Daily. | | | | 7 | | mcg tablet | | | | | | + + + +---------+ + + | cyclobenzaprine | Take 10 mg by mouth | | 0 | | | | (FLEXERIL) 10 mg | 3 times daily as | | | | 9 | | tablet | needed for Muscle | | | | | | | spasms. | | | | | + + + +---------+ + + | fish oil 1,000 mg | Take 1,000 mg by | | 0 | | | | capsule | mouth Daily. | | | | 7 | + + + +---------+ + + [...] + + + +---------+ + + | glucose blood | by In Vitro route as | | 0 | | | | test strips strip | needed. | | | | 9 | + + + +---------+ + + | | Take 1 tablet by | | 0 | | | | HYDROcodone-acetamin | mouth 4 times daily | | | | 9 | | ophen (NORCO) 10-325 | as needed for Pain. | | | | | | mg per tablet | | | | | | + + + +---------+ + + | HYDROmorphone | Take 2 mg by mouth | | 0 | | | | (DILAUDID) 2 mg | every 4 hours as | | | | 9 | | tablet | needed for Pain. | | | | | + + + +---------+ + + | lactobacillus | Take 2 tablets by | | 0 | | | | (FLORANEX) tablet | mouth 3 times daily. | | | | 7 | + + + +---------+ + + [...] + + +---------+ + + | | Apply topically | | 0 | | | | Silver-Carboxymethyl | Every 3 days. | | | | 9 | | cellulose | | | | | | | (AQUACEL-AG | | | | | | | HYDROFIBER) | | | | | | | 0.39"X18" MISC | | | | | | + + + +---------+ + + | Wound Dressings | Apply topically. | | 0 | | | | (MEPILEX EX) | | | | | 9 | + + + +---------+ + + documented as of this encounter Plan of Treatment + +------+--------+ + + | Name | Type | Priori | Associated Diagnoses | Date/Time | | | | ty | | | + +------+--------+ + + | ED INFORMATION | [facility] | Routin | | 03/13/2017 10:55 PM | | EXCHANGE | | e | | PDT | + +------+--------+ + + documented as of this encounter Procedures + +--------+ + + + | Procedure Name | Priori | Date/Time | Associated Diagnosis | Comments | | | ty | | | | + +--------+ + + + | CULTURE, BLOOD | STAT | 03/14/2017 | | Results for this | | | | 12:24 AM | | procedure are in the | | | | PDT | | results section. | + +--------+ + + + | SEDIMENTATION RATE | STAT | 03/14/2017 | | Results for this | | | | 12:01 AM | | procedure are in the | | | | PDT | | results section. | + +--------+ + + + | CULTURE, BLOOD | STAT | 03/14/2017 | | Results for this | | | | 12:01 AM | | procedure are in the | | | | PDT | | results section. | + +--------+ + + + | CBC WITH | STAT | 03/14/2017 | | Results for this | | DIFFERENTIAL | | 12:01 AM | | procedure are in the | | | | PDT | | results section. | + +--------+ + + + | C-REACTIVE PROTEIN | STAT | 03/14/2017 | | Results for this | | | | 12:01 AM | | procedure are in the | | | | PDT | | results section. | + +--------+ + + + | BASIC METABOLIC | STAT | 03/14/2017 | | Results for this | | PANEL | | 12:01 AM | | procedure are in the | | | | PDT | | results section. | + +--------+ + + + | CULTURE, WOUND, | STAT | 03/13/2017 | | Results for this | | SMEAR | | 11:26 PM | | procedure are in the | | | | PDT | | results section. | + +--------+ + + + | ED INFORMATION | Routin | 03/13/2017 | | | | EXCHANGE | e | 10:55 PM | | | | | | PDT | | | + +--------+ + + + +---+--------+ | | | | | Proced | | | ure | | | Note - | | | Deejay, | | | Lab In | | | | | | Hlseve | | | n - | | | 03/13/ | | | 2016 | | | 10:56 | | | PM PDT | | | | | | Format | | | ting | | | of | | | this | | | note | | | might | | | be | | | differ | | | ent | | | from | | | the | | | origin | | | al.DEEJAY | | | E?NOTI | | | FICATI | | | ON?/ | | | | | | 7 | | | 22:52? | | | CATER, | | | | | | VALENTINA | | | | | | R?MRN: | | | | | | [id number] | | | [id number] | | | his | | | patien | | | [...] | | | //secu | | | re.deejay | | | ecarep | | | shannon.co | | | m/eb | | | ent/f0 | | | [id number] | | | -c184- | | | 4bed-8 | | | 27a-23 | | | [id number] | | | 8c6e | | | ED | | | Care | | | Guidel | | | inesTh | | | ere | | | are | | | curren | | | tly no | | | ED | | | Care | | | Guidel | | | chris | | | in | | | [facility] | | | for | | | this | | | patien | | | t. | | | Please | | | check | | | your | | | facili | | | ty's | | | medica | | | l | | | record | | | s | | | system | | | .Recen | | | t | | | Emerge | | | ncy | | | Depart | | | ment | | | Visit | | | Summar | | | yAdmit | | | Date | | | Facili | | | ty | | | City | | | State | | | Type | | | Major | | | Type | | | Diagno | | | ses or | | | Chief | | | | | | Compla | | | int | | | Oct | | | 21, | | | 2017 | | | Provid | | | ence | | | [facility] | | [place] | | | [place] | | | Emerge | | | ncy | | | Emerge | | | ncy | | | Wound | | | Check | | | E.D. | | | [...] | | | . | | | Washin | | | gton | | | PDMP | | | Report | | | Rx | | | Detail | | | s (6 | | | Mo.)Fi | | | ll | | | Date | | | Drug | | | Descri | | | ption | | | Qty. | | | Prescr | | | iber | | | CS MED | | | | | | 2016-05 | | | 0-20 | | | HYDROM | | | ORPHON | | | E 2 MG | | | | | | TABLET | | | 75 | | | GIANNI | | | WYLLIE | | | 2 | | | 42.857 | | | | | | 2017 | | | 0-02 | | | HYDROC | | | ODON-A | | | CETAMI | | | NOPHN | | | 10-325 | | | 112 | | | MICAIA | | | H | | | KAYLYN | | | 2 40 | | | 2017-0 | | | 8-30 | | | HYDROC | | | ODON-A | | | CETAMI | | | NOPHN | | | 10-325 | | | 112 | | | [place] | | | H | | | KAYLYN | | | 2 40 | | | [address] | | | 8-07 | | | HYDROC | | | ODON-A | | | CETAMI | | | NOPHN | | | 10-325 | | | 112 | | | SHAINA | | | BLUE | | | 2 40 | | | 2017-0 | | | 7-10 | | | HYDROC | | | ODON-A | | | CETAMI | | | NOPHN | | | 10-325 | | | 112 | | | SHAINA | | | BLUE | | | 2 40 | | | Rx | | | Summar | | | y (12 | | | Mo.)Me | | | tric | | | Count | | | CS | | | II-V | | | Rx 10 | | | CS-II | | | Rx 10 | | | Quanti | | | ty | | | Dispen | | | sed | | | 1,363 | | | Unique | | | | | | Prescr | | | ibers | | | 4 | | | Unique | | | | | | Pharma | | | cies 2 | | | | | | Benzos | | | 0 | | | Opioid | | | s 10 | | | Long | | | Acting | | | | | | Opioid | | | s 0 | | | Care | | | Provid | | | ersPro | | | vider | | | PRC | | | Type | | | Phone | | | Fax | | | Servic | | | e | | | Dates | | | GAMSBY | | | EATON | | | | | | Primar | | | y Care | | | (509) | | | | | | [phone] | | | 00 | | | (509) | | | [phone] | | | 18 | | | Curren | | | t | | | Criter | | | ia met | | | | | | PDMPKn | | | own | | | Aliase | | | sNo | | | known | | | aliase | | | s. The | | | above | | | | | | inform | | | ation | | | is | | | provid | | | ed for | | | the | | | sole | | | purpos | | | e of | | | patien | | | t | | | treatm | | | ent. | | | Use of | | | this | | | inform | | | ation | | | beyond | | | the | | | terms | | | of | | | Data | | | Sharin | | | g | | | Memora | | | ndum | | | of | | | Unders | | | tandin | | | g and | | | Licens | | | e | | | Agreem | | | ent is | | | | | | prohib | | | ited. | | | In | | | certai | | | n | | | cases | | | not | | | all | | | visits | | | may | | | be | | | repres | | | ented. | | | | | | Consul | | | t the | | | aforem | | | ention | | | ed | | | facili | | | ties | | | for | | | additi | | | onal | | | inform | | | ation. | | | ? | | | 2016 | | | Collec | | | tive | | | Medica | | | l | | | Techno | | | logies | | | , Inc[employer] | | | - | | | [place] | | | [place] | | | [place], | | | [place] - | | | [email or web address] | | | ollect | | | ivemed | | | icalte | | | [email or web address] | | | | +---+--------+ documented in this encounter Results Culture, Blood (03/14/2017 12:24 AM PDT) + + + + + [...] [address] | [place] | [phone] | | [facility] | | [address] | | | - LABORATORY | | | | + + + + + Culture, Blood (03/14/2017 12:01 AM PDT) + + + + + [...] + | [facility] | [address] | [place] | [phone] | | [facility] | | [address] | | | - LABORATORY | | | | + + + + + Sedimentation Rate (03/14/2017 12:01 AM PDT) + +--------+ + + + | Component | Value | Ref Range | Performed | Pathologist | | | | | At | Signature | + +--------+ + + + | Erythrocyte | 54 (H) | <20 mm/hr | [facility] | | | | | | [facility] | | | Sedimentati | | | [...] [address] | [place] | [phone] | | [facility] | | [address] | | | - LABORATORY | | | | + + + + + C-Reactive Protein (03/14/2017 12:01 AM PDT) + + + + + + | Component | Value | Ref Range | Performed | Pathologist | | | | | At | Signature | + + + + + + | CRP | 27.64 (H) | <8.00 mg/L | [facility] | | | | | [...] [address] | [place] | [phone] | | [facility] | | [address] | | | - LABORATORY | | | | + + + + + Basic Metabolic Panel (03/14/2017 12:01 AM PDT) + + + + + + | Component | Value | Ref Range | Performed | Pathologist | | | | | At | Signature | + + + + + + | Na | 132 (L) | 136 - 149 | [facility] | | | | | mmol/L | [facility] | | | | | | MEDICAL | | | | | | CENTER - | | | | | | LABORATORY | | + + + + + + | K | 3.9 | 3.5 - 5.1 | [facility] | | | | | mmol/L | [facility] | | | | | | MEDICAL | | | | | | CENTER - | | | | | | LABORATORY | | + + + + + + | Cl | 103 | 98 - 109 mmol/L | [facility] [...] + + + + | Glucose | 192 (H) | 70 - 109 mg/dL | [facility] | | | | | | [facility] | | | | | | MEDICAL | | | | | | CENTER - | | | | | | LABORATORY | | + + + + + + | BUN | 9 | 7 - 18 mg/dL | [facility] | | | | | | [facility] | | | | | | MEDICAL | | | | | | CENTER - | | | | | | LABORATORY | | + + + + + + | Creatinine | 0.72 | 0.60 - 1.30 | [facility] | | | | | mg/dL | [facility] | | | | | | MEDICAL | | | | | | CENTER - | | | | | | LABORATORY | | + + + + + + | eGFR if not | >60Comment: GLOMERULAR | >=60 | [facility] | | | | FILTRATION | mL/min/1.73m2 | [facility] | | | GUINEAN | RATE,ESTIMATED | | MEDICAL | | | | mL/min/1.32h6Hqdt than | | CENTER - | | [...] + + + + | Calcium | 9.1 | 8.3 - 10.5 | [facility] | | | | | mg/dL | [facility] | | | | | | MEDICAL | | | | | | CENTER - | | | | | | LABORATORY | | + + + + + + | BUN/Creatin | 12.5 | | [facility] | | | ine [...] [address] | [place] | [phone] | | [facility] | | [address] | | | - LABORATORY | | | | + + + + + CBC with Differential (03/14/2017 12:01 AM PDT) + + + + + + | Component | Value | Ref Range | Performed | Pathologist | | | | | At | Signature | + + + + + + | WBC | 8.1 | 4.0 - 11.0 K/uL | [facility] | | | | | | [facility] | | | | | | MEDICAL | | | | | | CENTER - | | | | | | LABORATORY | | + + + + + + | RBC | 3.78 (L) | 4.30 - 5.70 | [facility] | | | | | M/uL | [facility] | | | | | | MEDICAL | | | | | | CENTER - | | | | | | LABORATORY | | + + + + + + | Hemoglobin | 12.0 (L) | 13.5 - 18.0 | [facility] | | | | | g/dL | [facility] | | | | | | MEDICAL | | | | | | CENTER - | | | | | | LABORATORY | | + + + + + + | Hematocrit | 34.4 (L) | 40.0 - 51.0 % | [facility] | | | | | | [facility] | | | | | | MEDICAL | | | | | | CENTER - | | | | | | LABORATORY | | + + + + + + | MCV | 91.2 | 83.0 - 101.0 fL | [facility] [...] + + + + | RDW-CV | 14.5 | <15.0 % | [facility] | | | | | | [facility] | | | | | | MEDICAL | | | | | | CENTER - | | | | | | LABORATORY | | + + + + + + | Platelet | 525 (H) | 140 - 440 K/uL | [facility] | | | Count | | | [facility] | | | | | | MEDICAL | | | | | | CENTER - | | | | | | LABORATORY | | + + + + + + | MPV | 10.1 | fL | [facility] | | | | | | [facility] | | | | | | MEDICAL | | | | | | CENTER - | | | | | | LABORATORY | | + + + + + + | % | 65.4 | 45.0 - 82.0 % | [facility] | | | Neutrophils | | | [facility] | | | | | | MEDICAL | | | | | | CENTER - | | | | | | LABORATORY | | + + + + + + | % | 23.7 | 20.0 - 45.0 % | [facility] | | | Lymphocytes | | | [facility] | | | | | | MEDICAL | | | | | | CENTER - | | | | | | LABORATORY | | + + + + + + | % Monocytes | 7.3 | 4.0 - 12.0 % | [facility] | | | | | | [facility] | | | | | | MEDICAL | | | | | | CENTER - | | | | | | LABORATORY | | + + + + + + | % | 2.6 | 0.0 - 5.0 % | [facility] | | | Eosinophils | | | [facility] | | | | | | MEDICAL | | | | | | CENTER - | | | | | | LABORATORY | | + + + + + + | % Basophils | 1.0 | 0.0 - 1.0 % | [facility] | | | | | | [facility] | | | | | | MEDICAL | | | | | | CENTER - | | | | | | LABORATORY | | + + + + + + | Absolute | 5.30 | 1.80 - 8.50 | [facility] | | | Neutrophils | | K/uL | [facility] | | | | | | MEDICAL | | | | | | CENTER - | | | | | | LABORATORY | | + + + + + + | Absolute | 1.90 | 0.60 - 3.20 | [facility] | | | Lymphocytes | | K/uL | [facility] | | | | | | MEDICAL | | | | | | CENTER - | | | | | | LABORATORY | | + + + + + + | Absolute | 0.60 | 0.00 - 1.00 | [facility] | | | Monocytes | | K/uL | [facility] | | | | | | MEDICAL | | | | | | CENTER - | | | | | | LABORATORY | | + + + + + + | Absolute | 0.20 | 0.00 - 0.40 | [facility] | [...] [address] | [place] | [phone] | | [facility] | | [address] | | | - LABORATORY | | | | + + + + + Culture, Wound, Smear (03/13/2017 11:26 PM PDT) + + + + + + | Component | Value | Ref Range | Performed | Pathologist | | | | | At | Signature | + + + + + + | Culture | 1+ Enterococcus | | [facility] | | | | faecalisComment: | | [facility] | | | | Combination therapy of | | MEDICAL | | | | ampicillin, penicillin, | | CENTER - | | | | or vancomycin (for | | LABORATORY | | | | susceptible strains), | | | | | | plus an aminoglycoside, | | | | | | is usually indicated for | | | | | | serious enterococcal | | | | | | infections, such as | | | | | | endocarditis, unless | | | | | | high-level resistance to | | | | | | both gentamicin and | | | | | | streptomycin is | | | | | | documented; such | | | | | | combinations are | | | | | | predicted to result in | | | | | | synergistic killing of | | | | | | the enterococcus. | | | | + + + + + + | Culture | 1+ Usual FloraComment: | | [facility] | | | | Consistent with skin | | [facility] | | | | lani. | | MEDICAL | | | | | | CENTER - | | | | | | LABORATORY | | + + + + + + | Gram Stain | No white blood cells | | [facility] | | | Result | (PMNs) seen | | [facility] | | | | | | MEDICAL | | | | | | CENTER - | | | | | | LABORATORY | | + + + + + + | Gram Stain | No organisms seen | | [facility] | | | Result | | | [facility] | | | | | | MEDICAL | | | | | | CENTER - | | | | | | LABORATORY | | + + + + + + + + | Specimen | + + | Wound - All legs | | (body structure) | + + + + +--------+ + | Organism | Antibiotic | Method | Susceptibility | + + +--------+ + | Enterococcus | Ampicillin | | <=2 ug/mL: | | faecalis | | | Sensitive | + + +--------+ + | Enterococcus | Penicillin G | | 8 ug/mL: Sensitive | | faecalis | | | | + + +--------+ + | Enterococcus | Vancomycin | | 1 ug/mL: Sensitive | | faecalis | | | | + + +--------+ + + + + + + | Performing | Address | City/State/Zipcode | Phone Number | | Organization | | | | + + + + + | [facility] | [address] | [place] | [phone] | | [facility] | | [address] | | | - LABORATORY | | | | + + + + + documented in this encounter Visit Diagnoses + + | Diagnosis | + + | Postoperative wound infection, initial encounter - Primary | + + | Decubitus ulcer of right buttock, stage 2 (HCC) Pressure ulcer, buttock | + + documented in this encounter Administered Medications + + + +--------+------+------+ | Medication Order | MAR | Action | Dose | Rate | Site | | | Action | Date | | | | + + + +--------+------+------+ | clindamycin (CLEOCIN) capsule | Dispense | 03/14/20 | 300 mg | | | | (ER Prepack) 300 mg 300 mg, | to Home | 17 1:37 | | | | | Oral, ONCE, 03/14/17 at 0055, | | AM PDT | | | | | For 1 dose, Take 2 capsule(s) 4 | | | | | | | times daily Dispense for home | | | | | | | use., Indications: Post-Operative | | | | | | | Wound Infection | | | | | | + + + +--------+------+------+ +---+---+ | | | +---+---+ documented in this encounter
--- OUTSIDE RECORDS SUMMARY | ~2019-09-14 | XMS | Encounter Summary ---
Demographics + + + | Address | [address] | | | [place] [address] | + + + | Home Phone | | + + + | Preferred Language | Unknown | + + + | Marital Status | Single | + + + | Synagogue Affiliation | Unknown | + + + | Race | Unknown | + + + | Ethnic Group | Unknown | + + + Author + + + | Author | [facility] | | | and [facility] | + + + | Organization | [facility] | | [...] | | | | | [place] [address] | | + + + + + Care Team Providers + +------+ + | Care Forge Operator Helper Name | Role | Phone | + +------+ + | Shi Miramontes | PCP | | + +------+ + Reason for Visit + + + | Reason | Comments | + + + | Appointment | Cancel 07/25 | + + + Encounter Details +--------+ + + + + | Date | Type | Department | Care Team | Description | +--------+ + + + + | 07/25/ | Telephone | [facility] | Madi Linares MD | Appointment (Cancel | | 2019 | | VASCULAR SURGERY | [address] | 07/25) | | | | [address] | [facility] | | | | | [address] [place], [place] | [place] [address] | | | | | [address] | [phone] | | | | | [phone] | | | +--------+ + + + [...]
--- OUTSIDE RECORDS SUMMARY | ~2019-09-14 | XMS | Encounter Summary ---
Demographics + + + | Address | [address] | | | [place] [address] | + + + | Home Phone | | + + + | Preferred Language | Unknown | + + + | Marital Status | Single | + + + | Buddhist Affiliation | Unknown | + + + | Race | Unknown | + + + | Ethnic Group | Unknown | + + + Author + + + | Author | [facility] | | | and [facility] | + + + | Organization | [facility] | | | and [...] | | | | | [place] [address] | | + + + + + Care Team Providers + +------+ + | Care Agency Legal Counsel Name | Role | Phone | + +------+ + | Debora Butts | PCP | | + +------+ + Reason for Visit +--------+ + | Reason | Comments | +--------+ + | Other | Status update | +--------+ + Encounter Details +--------+ + + + + | Date | Type | Department | Care Team | Description | +--------+ + + + + | 12/15/ | Telephone | [facility] | McconnellSarbjitkevin Araujo, | Other (Status | | 2013 | | SURGERY [address] | MD [address], | update) | | | | [place], [place] | [address] [place], | | | | | [address] | [place] [address] | | | | | [phone] | [phone] | | | | | | | [...]
--- OUTSIDE RECORDS SUMMARY | ~2019-09-14 | XMS | Encounter Summary ---
Demographics + + + | Address | [address] | | | [place] [address] | + + + | Home Phone | | + + + | Preferred Language | Unknown | + + + | Marital Status | Single | + + + | Spiritism Affiliation | Unknown | + + + | Race | Unknown | + + + | Ethnic Group | Unknown | + + + Author + + + | Author | [facility] | | | and [facility] | + + + | Organization | [facility] | | | [...] | | | | | [place] [address] | | + + + + + Care Team Providers + +------+ + | Care Ticket Seller Name | Role | Phone | + +------+ + | Debora Butts | PCP | | + +------+ + Encounter Details +--------+ + + + + | Date | Type | Department | Care Team | Description | +--------+ + + + + | 11/05/ | Hospital | [facility] | Conversion | Pain | | 2016 | Encounter | CONVERSION DEP [address] | Transaction, | | | | | [address] [place] | Provider Unknown | | | | | JESSE HICKS | [phone] | | | | | [phone] | | | | | | [phone] | | | +--------+ + + + [...] W WO | Routin | 09/26/2015 | | Results for this | | CONTRAST | e | 2:55 PM | | procedure are in the | | | | PDT | | results section. | + +--------+ + + + documented in this encounter Results CT Head w wo Contrast (09/26/2015 2:55 PM PDT) + + | Specimen | [...]
--- OUTSIDE RECORDS SUMMARY | ~2019-09-14 | XMS | Encounter Summary ---
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 Name | Role | Phone | + +------+ + | Shi Miramontes | PCP | | + +------+ + Reason for Visit +--------+ + | Reason | Comments | +--------+ + | Pre-Op | | +--------+ + Encounter Details +--------+ + + + + | Date | Type | Department | Care Team | Description | +--------+ + + + + | 02/10/ | Telephone | [facility] | Madi Linares MD | Pre-Op | | 2020 | | CENTER [facility] | [address] | | | | | [address] | [facility] | | | | | [place], [place] | [place] [address] | | | | | [id number] | [phone] | | | | | [phone] | | | +--------+ + + + [...]
--- OUTSIDE RECORDS SUMMARY | ~2019-09-14 | XMS | Encounter Summary ---
Demographics + + + | Address | [address] | | | [place] [address] | + + + | Home Phone | | + + + | Preferred Language | Unknown | + + + | Marital Status | Single | + + + | Hindu Affiliation | Unknown | + + + | Race | Unknown | + + + | Ethnic Group | Unknown | + + + Author + + + | Author | [facility] | | | and [facility] | + + + | Organization | [facility] | | | and [...] | | | | | [place] [address] | | + + + + + Care Team Providers + +------+ + | Care Founder Chairman And Chief Creative Officer Name | Role | Phone | + +------+ + | Rebecca Millard NP | PCP | | + +------+ + Reason for Visit +---------+ + | Reason | Comments | +---------+ + | Post Op | rt JOE dos 06/08/12 | +---------+ + Encounter Details +--------+---------+ + + + | Date | Type | Department | Care Team | Description | +--------+---------+ + + + | 07/01/ | Office | [facility] | Yusuf Larios, | Post-op pain | | 2012 | Visit | ORTHOPEDIC SURGERY | PA-Saira [address] | (Primary Dx); | | | | [address] [facility] | [address] | Follow-up | | | | [place], [place] | [facility] [place] [address] | examination after | | | | [address] | [phone] | orthopedic surgery | | | | [phone] | | | +--------+---------+ + + + Social History + +-------+ [...] + + + | Blood Pressure | - | - | | + + + + + | Pulse | 80 | 07/01/2012 9:20 AM | | | | | PST | | + + + + + | Temperature | 37.1 C (98.7 F) | 07/01/2012 9:20 AM | | | | | PST | | + + + + + | Respiratory Rate | 16 | 07/01/2012 9:20 AM | | | | | PST | | + + + + + | Oxygen Saturation | - | - | | + + + + + | Inhaled Oxygen | - | - | | | Concentration | | | | + + + + + | Weight | 87.1 kg (192 lb) | 07/01/2012 9:20 AM | | | | | PST | | + + + + + | Height | 175.3 cm (5' 9") | 07/01/2012 9:20 AM | | | | | PST | | + + + + + | Body Mass Index | 28.35 | 07/01/2012 9:20 AM | | | | | PST | | + + + + + documented in this encounter Progress Notes Yusuf Larios PA - 07/01/2012 2:49 PM [facility] [id number] SuYusuf macdonald PA - 07/01/2012 12:00 AM [facility] [address] [place] [address] [place] [address] FAX: [phone] OFFICE VISIT SUBJECTIVE: Paul presents to our clinic today for postop evaluation. 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 The patient was found to have a septic foot that was not felt viable. The patient reports that his pain has been moderately well controlled but has been taking both oxycodone and hydrocodone. He is getting close to running out of b oth medications. He had been having home health come out twice a week to change the dressin g. The patient otherwise has no other complaints or concerns. OBJECTIVE GENERAL: The patient is alert and oriented, in no acute distress. EXTREMITIES: Inspection of the stump shows that the incision has healed wonderfully so far. There is no evidence of drainage or infection. The wound is completely dry. It is reasonab ly tender to palpation. ASSESSMENT: POSTOPERATIVE EVALUATION FROM RIGHT [id number]-ZUY-EHMT AMPUTATION. PLAN: We will go ahead and send him over to [facility] to have t hem begin making stump shrinkers for him with eventual plan of fitting him with a prosthesi s. I would like the patient to see us back in approximately 4 weeks. If there are any quest ions, we will see him on an as needed basis. Otherwise, we will see him at his next schedul ed visit. Yusuf Larios PA-C / [facility] JOB #: [id number] signed by AYLA Acevedo at 07/21/2012 9:03 AM PSTdocum ented in this encounter Plan of Treatment Not on filedocumented as of this encounter Visit Diagnoses + + | Diagnosis | + + | Post-op pain - Primary Other acute postoperative pain | + + | Follow-up examination after orthopedic surgery Follow-up examination, following other | | surgery | + + documented in this encounter
--- OUTSIDE RECORDS SUMMARY | ~2019-09-14 | XMS | Encounter Summary ---
Demographics + + + | Address | [address] | | | [place] [address] | + + + | Home Phone | | + + + | Preferred Language | Unknown | + + + | Marital Status | Single | + + + | Christianity Affiliation | Unknown | + + + | Race | Unknown | + + + | Ethnic Group | Unknown | + + + Author + + + | Author | [facility] | | | and [facility] | + + + | [...] | | | | | [place] [address] | | + + + + + Care Team Providers + +------+ + | Care Broach Setter Name | Role | Phone | + +------+ + | Rebecca Millard NP | PCP | | + +------+ + Reason for Visit + + + | Reason | Comments | + + + | Therapy Daily | | | Treatment | | + + + Evaluate & Treat (Routine) +--------+--------+ + + + + | Status | Reason | Specialty | Diagnoses / | Referred By | Referred To | | | | | Procedures | Contact | Contact | +--------+--------+ + + + + | Closed | | Rehabilitatio | Diagnoses | Unknown, | [facility] | | | | n | Acquired | Doctor | Ed | | | | | absence of | Phone: | Therapy [address] | | | | | left leg | | [address] | | | | | above knee | Fax: | [facility], | | | | | [facility] | | [place] [address] | | | | | Abnormality | | Phone: | | | | | of gait | | [phone] | | | | | Procedures | | Fax: | | | | | Pt eval | | [phone] | | | | | -gait | | | +--------+--------+ + + + + Encounter Details +--------+---------+ + + + | Date | Type | Department | Care Team | Description | +--------+---------+ + + + | 01/02/ | Office | [facility] | Jasmyn Chávez, | Status post above | | 2019 | Visit | [facility] | ORDER ENTRY ADMINISTRATOR [address] | knee amputation of | | | | [address] | [place], [place] | right lower | | | | [place], [place] | [address] | extremity (HCC); | | | | [address] | [phone] | Abnormality of gait | | | | [phone] | | and mobility; | | | | | | Impaired mobility | | | | | | and ADLs; Chronic | | | | | | pain of both | | | | | | shoulders; H/O neck | | | | | | surgery; PTSD | | | | | | (post-traumatic | | | | | | stress disorder); | | | | | | Peripheral vascular | | | | | | disease (HCC) | +--------+---------+ + + + Social History [...] documented as of this encounter Progress Notes Jasmyn Chávez, ORDER ENTRY ADMINISTRATOR - 01/02/2019 10:30 AM PDT [facility] [address] [place] [address] [place] [address] Physical Therapy Daily Treatment Note Date: 01/02/2019 Patient Information Patient Name: Paul Bunn Date of : 1945 Age: 73 y.o. Encounter Diagnoses Code Name Primary? 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) R26.9 Abnormality of gait and mobility Z74.09 Impaired mobility and ADLs M25.511, G89.29, M25.512 Chronic pain of both shoulders Z98.890 H/O neck surgery F43.10 PTSD (post-traumatic stress disorder) I73.9 Peripheral vascular disease (HCC) Date of Onset: 10/21/2018 Referring Provider: Doctor Unknown # of PT Visits to Date: 4 Start Time: 1030 Stop time: 1115 Duration: 45 minutes Timed Treatment Codes: 45 minutes Rehab Precautions Office Visit from 11/28/2018 in [facility] Rehab Precautions Precautions ARTF Precautions Comments L eye blind Pain Assessment: Pain Scale Used: NUMERIC Pain Rating Pre Assessment: 6 Location: 10/31- all over Subjective: Patient reports some changes towards goals listed below. He reports that he lazo s been working on stretches at home, they seem to be helping. His pain level is always ther e, never really goes away. Goals: OP PT Goals Goal 1: Improved functional LE strength and gait stability such that Paul can ambulate ho usehold distances, independently, with the use of a walker and his prosthetic leg. Goal 1 Status: Paul currently utilizes his wheelchair for 100% of household mobility, he is unable to walk safely without assistance. Goal 2: Improved L hip ROM to hip extension within 10 degrees of neutral to permit for inde pendent stretching, reduction in modification required on prosthetic leg for reduced weight and improved walking mechanics and efficiency. Goal 2 Status: Current hip flexor contracture. Lacks 38 degrees to neutral hip extension. Goal 3: Independent home exercise program to facilitate independent symptom management. Goal 3 Status: Paul performs irregular brief proning to try to stretch his hip but does n ot tolerate the position well- he requires the assistance of his daughter to stretch his hip otherwise. Objective: Therapeutic exercises and stretches for strengthening and mobility: PROM stretches for right hip flexors in sidelying Seated LAQ's with 5# on left 2x10 Seated hip marches with 5# on left 2x10 Gait training: Ambulation in // bars x 3 laps with a seated rest break each time- wearing prosthetic an d gait belt Ambulation in // bars 2x2 laps with a seated rest break each time- wearing prosthetic an d gait belt Assessment: Paul was able to complete the above exercises and activities with minimal complaints of p ain or discomfort. He transferred with SBA and vc's occasionally for safety. He required m Cullen to don his prosthetic in sitting. He had a good judgement of endurance and safety with transfers and ambulation. He required increased time with turns and to find a steady patter n again for ambulation in // bars. He continues to benefit from skilled PT to help maximize mobility in his hips, strength and safety with transfers and gait. Plan: Continue to work on stretches, strengthening, gait training, balance. Electronically signed by: Jasmyn Chávez PTA, 01/02/2019 14:11 Patient Name: Paul Graham Catmarleny/: 1945/ documented in this encounter Plan of Treatment Not on filedocumented as of this encounter Visit Diagnoses + + | Diagnosis | + + | Status post above knee amputation of right lower extremity | + + | Abnormality of gait and mobility Abnormality of gait | + + | Impaired mobility and ADLs Mechanical problems with limbs | + + | Chronic pain of both shoulders Pain in joint, shoulder region | + + | H/O neck surgery Personal history of surgery to other organs | + + | PTSD (post-traumatic stress disorder) Posttraumatic stress disorder | + + | Peripheral vascular disease (HCC) Peripheral vascular disease, unspecified | + + documented in this encounter"
--- OUTSIDE RECORDS SUMMARY | ~2019-09-14 | XMS | Encounter Summary ---
Demographics + + + | Address | [address] | | | [place] [address] | + + + | Home Phone | | + + + | Preferred Language | Unknown | + + + | Marital Status | Single | + + + | Catholic Affiliation | Unknown | + + + | Race | Unknown | + + + | Ethnic Group | Unknown | + + + Author + + + | Author | [facility] | | | and [facility] | + + + | Organization | [facility] | | | [...] | | | | | [place] [address] | | + + + + + Care Team Providers + +------+ + | Care Linesperson Name | Role | Phone | + [...] | +--------+ + + + + | 02/17/ | Anesthesia | [facility] | Ryan Andrews, | | | 2018 | Event | [facility] | MD [address] | | | | | [address] | [place] | | | | | [place] | [address] | | | | | [address] | | | | | | [phone] | | | +--------+ + + + + Anesthesia Record + + + + + | Procedure Name | Responsible | Anesthesia Start | Anesthesia Stop Time | | | Anesthesiologist | Time | | + + + + + | AMPUTATION 2nd TOE | Ryan Andrews MD | 02/17/19 1211 | 02/17/19 1307 | | LEFT (Left Foot) | | | | + + + + + +----+---+ + + | Da | T | Event | Comment | | te | i | | | | | m | | | | | e | | | +----+---+ + + | 09 | 1 | First | | | /2 | 1 | Inc/Proc St | | | 7/ | 3 | | | | 20 | 0 | | | | 19 | | | | +----+---+ + + | | 1 | An Checkout | Pre-use anesthesia machine/equipment checkout. | | | 2 | | | | | 0 | | | | | 7 | | | +----+---+ + + | | 1 | | | | | 2 | | | | | 0 | | | | | 9 | | | +----+---+ + + | | 1 | An Start | Reassessment prior to anesthesia induction/procedure. | | | 2 | | | | | 1 | | | | | 1 | | | +----+---+ + + | | 1 | AN | Per surgeon request | | | 2 | Antibiotic | | | | 1 | declined | | | | 2 | | | +----+---+ + + | | 1 | Quick Note | Active emesis sitting up in OR table presently. | | | 2 | | | | | 1 | | | | | 6 | | | +----+---+ + + | | 1 | Preoxygenat | | | | 2 | ed | | | | 1 | | | | | 9 | | | +----+---+ + + | | 1 | An | | | | 2 | Induction | | | | 2 | | | | | 0 | | | +----+---+ + + | | 1 | An | | | | 2 | Intubation | | | | 2 | | | | | 1 | | | +----+---+ + + | | 1 | AN Bite | | | | 2 | Block | | | | 2 | | | | | 2 | | | +----+---+ + + | | 1 | [place] | | | | 2 | 43-degrees | | | | 2 | | | | | 5 | | | +----+---+ + + | | 1 | [place] off | | | | 2 | | | | | 5 | | | | | 6 | | | +----+---+ + + | | 1 | Breathing | | | | 2 | Spontaneous | | | | 5 | ly | | | | 8 | | | +----+---+ + + | | 1 | AN No | TOF 4/4 with sustained tetanus. | | | 2 | Residual | | | | 5 | NMB | | | | 9 | | | +----+---+ + + | | 1 | Oropharynx | | | | 2 | Suctioned | | | | 5 | | | | | 9 | | | +----+---+ + + | | 1 | Moving | | | | 3 | Purposefull | | | | 0 | y | | | | 0 | | | +----+---+ + + | | 1 | Extubation/ | | | | 3 | Airway LDA | | | | 0 | Removal | | | | 1 | | | +----+---+ + + | | 1 | an stop | | | | 3 | data | | | | 0 | | | | | 1 | | | +----+---+ + + | | 1 | An Stop | Patient handed off to recovery nurse. | | | 0 | | | | | 7 | | | +----+---+ + + +------+ | Meds | +------+ + +---------+ | Name | Total | + +---------+ | Fentanyl | 100 mcg | + +---------+ | lidocaine 2% (PF) | 80 mg | + +---------+ | propofol | 100 mg | + +---------+ | rocuronium | 30 mg | + +---------+ | dexamethasone | 10 mg | + +---------+ | ondansetron | 4 mg | + +---------+ | phenylephrine (Injection) | 300 mcg | + +---------+ | ePHEDrine (AKOVAZ) injection 50 | 10 mg | | mg/mL | | + +---------+ | glycopyrrolate (ROBINUL) | 0.5 mg | | injection (5 mL vial) | | + +---------+ | neostigmine | 3 mg | + +---------+ | lactated ringers (LR) infusion | 900 mL | + +---------+ + + | Name | + + [...] Removal | +--------+ + + + | Airway | Placement Date: 02/17/19; | 02/17/19 1221 by | 02/17/19 1301 by | | | Placement Time: 1221 (created via | Ryan Andrews MD | Ryan Andrews MD | | | procedure documentation); Mask | | | | | Ventilation: N/A; Airway Grade: | | | | | 1; External Maneuvers: CP; | | | | | Successful Technique: (Ruth); | | | | | Laryngoscope Blade Size: 3; | | | | | Attempts: 1; Airway Type: | | | | | endotracheal; Size: 6.5; Airway | | | | | Tube Secured At: 22; Trauma: | | | | | none; Other Equipment: stylette; | | | | | Placement Check: exhaled CO2 | | | | | detection device, bilateral chest | | | | | rise; Removal Date: 02/17/19; | | | | | Removal Time: 1301 | | | +--------+ + + + | Wound | 02/17/19; 1257; Incision; Left; | 02/17/19 1257 by | 05/04/192346 by | | | foot; Amputation; 05/04/19; 2346 | Dimple Ferguson RN | Trang Mata RN | +--------+ + + + documented in [...] | ANE AIRWAY NOTE | Routin | 02/17/2019 | | Results for this | | | e | 12:30 PM | | procedure are in the | | | | PDT | | results section. | + +--------+ + + + documented in this encounter Results Airway (02/17/2019 12:30 PM PDT) + + + | Narrative | Performed At | + + + | Ryan Andrews MD 02/17/2019 12:31 Anesthesia Airway | | | Placement 02/17/2019 12:21 Preprocedure check: patient identified, | | | suction, airway equipment checked, oxygen, airway assessed and | | | patient reassessment prior to induction Rapid Sequence Induction: yes | | | Mask ventilation: N/A External maneuver: cricoid pressure | | | Successful technique: video bronchoscope (RIISnet) Laryngoscope blade | | | size: 3 Airway grade: 1 (Full view of glottis) Other equipment: | | | stylette Attempts: 1 Airway type: endotracheal Size: 6.5 Cuffed: | | | cuffed Route, reference point: right side of mouth Tube depth: 22 cm | | | Tube secured with: adhesive tape Trauma: none Tube placement | | | verification: carbon dioxide detection and bilateral chest rise | | | Performing provider: Ryan Andrews MD Please see | | | intraoperative grid for any additional medication documentation. | | + + + + + | Procedure Note | + + | Ryan Andrews MD - 02/17/2019 12:30 PM PDT Anesthesia Airway Placement02/17/2019 | | 12:21Preprocedure check: patient identified, suction, airway equipment checked, oxygen, | | airway assessed and patient reassessment prior to inductionRapid Sequence Induction: | | yesMask ventilation: N/AExternal maneuver: cricoid pressureSuccessful technique: video | | bronchoscope (RIISnet)Laryngoscope blade size: 3 Airway grade: 1 (Full view of | | glottis)Other equipment: styletteAttempts: 1Airway type: endotrachealSize: 6.5Cuffed: | | cuffedRoute, reference point: right side of mouthTube depth: 22 cmTube secured with: | | adhesive tapeTrauma: noneTube placement verification: carbon dioxide detection and | | bilateral chest risePerforming provider: NIKHIL Duenaslease see intraoperative | | grid for any additional medication documentation. | |Other equipment: stylette | |Attempts: 1 | |Airway type: endotracheal | |Size: 6.5 | |Cuffed: cuffed | |Route, reference point: right side of mouth | |Tube depth: 22 cm | |Tube secured with: adhesive tape | |Trauma: none | |Tube placement verification: carbon dioxide detection and bilateral chest rise | |Performing provider: Ryan Andrews MD | | | | | | | |Please see intraoperative grid for any additional medication documentation. | + + documented in this encounter Visit Diagnoses Not on filedocumented in this encounter Administered Medications + +--------+ +-------+------+------+ | Medication Order | MAR | Action | Dose | Rate | Site | | | Action | Date | | | | + +--------+ +-------+------+------+ | dexamethasone (PF) 10 mg/mL | Given | 02/18/20 | 10 mg | | | | injection Intravenous, PRN, | | 19 12:16 | | | | | Starting 02/17/19 at 1216, | | PM PDT | | | | | Anesthesia Intra-op | | | | | | + +--------+ +-------+------+------+ +---+---+ | | | +---+---+ + +-------+ +-------+---+---+ | ePHEDrine (AKOVAZ) 50 mg/mL | Given | 02/18/20 | 10 mg | | | | injection Intravenous, PRN, | | 19 12:35 | | | | | Starting Wed02/17/19 at 1235, | | PM PDT | | | | | Anesthesia Intra-op | | | | | | + +-------+ +-------+---+---+ +---+---+ | | | +---+---+ + +-------+ +---------+---+---+ | fentaNYL (PF) injection PRN, | Given | 02/18/20 | 100 mcg | | | | Starting Wed02/17/19 at 1220, | | 19 12:20 | | | | | Anesthesia Intra-op | | PM PDT | | | | + +-------+ +---------+---+---+ +---+---+ | | | +---+---+ + +-------+ +--------+---+---+ | glycopyrrolate (ROBINUL) | Given | 02/18/20 | 0.5 mg | | | | injection Intravenous, PRN, | | 19 12:54 | | | | | Starting Wed02/17/19 at 1254, | | PM PDT | | | | | Anesthesia Intra-op | | | | | | + +-------+ +--------+---+---+ +---+---+ | | | +---+---+ + +---------+ +---+---+---+ | lactated ringers (LR) [...] | +---+---+ + +-------+ +-------+---+---+ | lidocaine (PF) 2% injection | Given | 02/18/20 | 80 mg | | | | PRN, Starting Wed02/17/19 at | | 19 12:20 | | | | | 1220, Anesthesia Intra-op | | PM PDT | | | | + +-------+ +-------+---+---+ +---+---+ | | | +---+---+ + +-------+ +------+---+---+ | neostigmine (BLOXIVERZ) 1 mg/mL | Given | 02/18/20 | 3 mg | | | | injection Intravenous, PRN, | | 19 12:54 | | | | | Starting Wed02/17/19 at 1254, | | PM PDT | | | | | Anesthesia Intra-op | | | | | | + +-------+ +------+---+---+ +---+---+ | | | +---+---+ + +-------+ +------+---+---+ | ondansetron (ZOFRAN) injection | Given | 02/18/20 | 4 mg | | | | PRN, Starting Wed02/17/19 at | | 19 12:16 | | | | | 1216, Anesthesia Intra-op | | PM PDT | | | | + +-------+ +------+---+---+ +---+---+ | | | +---+---+ + +-------+ +---------+---+---+ | phenylephrine (SEKOU-SYNEPHRINE) | Given | 02/18/20 | 100 mcg | | | | 100 mcg/mL injection | | 19 12:36 | | | | | Intravenous, PRN, Starting Fri | | PM PDT | | | | | 02/17/19 at 1236, Anesthesia | | | | | | | Intra-op | | | | | | + +-------+ +---------+---+---+ +-------+ +---------+---+---+ | Given | 02/18/20 | 200 mcg | | | | | 19 12:20 | | | | | | PM PDT | | | | +-------+ +---------+---+---+ +---+---+ | | | +---+---+ + +-------+ +--------+---+---+ | propofol (DIPRIVAN) injection | Given | 02/18/20 | 100 mg | | | | Intravenous, PRN, Starting Fri | | 19 12:20 | | | | | 02/17/19 at 1220, Anesthesia | | PM PDT | | | | | Intra-op | | | | | | + +-------+ +--------+---+---+ +---+---+ | | | +---+---+ + +-------+ +-------+---+---+ | rocuronium (ZEMURON) injection | Given | 02/18/20 | 30 mg | | | | Intravenous, PRN, Starting Fri | | 19 12:20 | | | | | 02/17/19 at 1220, Anesthesia | | PM PDT | | | | | Intra-op | | | | | | + +-------+ +-------+---+---+ +---+---+ | | | +---+---+ documented in this encounter"
--- OUTSIDE RECORDS SUMMARY | ~2019-09-14 | XMS | Encounter Summary ---
Demographics + + + | Address | [address] | | | [place] [address] | + + + | Home Phone | | + + + | Preferred Language | Unknown | + + + | Marital Status | Single | + + + | Temple Affiliation | Unknown | + + + | Race | Unknown | + + + | Ethnic Group | Unknown | + + + Author + + + | Author | [facility] | | | and [facility] | + + + | Organization | [facility] | | [...] | | | | | [place] [address] | | + + + + + Care Team Providers + +------+ + | Care Painter Drum Name | Role | Phone | + +------+ + | Shi Miramontes | PCP | | + +------+ + Encounter Details +--------+---------+ + + + | Date | Type | Department | Care Team | Description | +--------+---------+ + + + | 07/20/ | Office | [facility] | Mustapha Wang, | Aftercare following | | 2020 | Visit | [address] | DPM [address] | surgery of the | | | | [address] | [address], | musculoskeletal | | | | [place], [place] | [place] [address] | system (Primary Dx) | | | | [address] | [phone] | | | | | [phone] | | | +--------+---------+ + + + [...] + + + | Blood Pressure | 134/62 | 07/20/2019 11:51 AM | | | | | PST | | + + + + + | Pulse | 87 | 07/20/2019 11:51 AM | | | | | PST | | + + + + + | Temperature | 37 C (98.6 F) | 07/20/2019 11:51 AM | | | | | PST | | + + + + + | Respiratory Rate | - | - | | + + + + + | Oxygen Saturation | 98% | 07/20/2019 11:51 AM | | | | | PST [...] documented as of this encounter Progress Notes Mustapha Wang DPM - 07/20/2019 11:30 AM [facility] Office Visit Note Pt. Name/Age/: Paul Bunn 73 y.o. 1945 Med. Record Number: [id number] Subjective: The patient chart and medications were reviewed in detail and the patient was s een and examined. 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 P atient's pain is 6/10. No new concerns. Patient denies any nausea, vomiting, fevers, chills , shortness of breath, chest pain or ca/lf pain. ROS: As above, All others systems negative Objective: There were no vitals taken for this visit. Estimated body mass index is 24.33 kg/m as calculated from the following: Height as of 07/04/19: 1.727 m (5' 8"). Weight as of 07/04/19: 72.6 kg (160 lb). Exam: General: Patient alert and oriented and in no acute distress Psychiatric: Normal affect and mood Respiratory: Regular rate and rhythm no accessory muscle usage Focused lower extremity exam Cardiovascular: Foot pulses DP right: 2/2 PT right 2/2 DP left: 2/2 PT left 2/2 CFT brisk to all digits Normal skin temperature Neurological: Light touch intact Skin: Warm and dry, skin edges of incision remain approximated, no erythema, calor, draina ge, no skin mottling Lymph: No lymphangitis appreciable Musculoskelatal: 5/5 muscle strength for plantarflexors, evertors, dorsiflexors, invertors , negative Cruz's sign Diagnostic studies: Available data and images were reviewed personally. See reports. Signi ficant results and findings are addressed here or in the Assessment and Plan. 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 The possibility of "sound alike" asthma educator errors, addition and/or deletions may occur. If there is any question p lease contact the author of the document. documented in this encounter Plan of Treatment Not on filedocumented as of this encounter Visit Diagnoses + + | Diagnosis | + + | Aftercare following surgery of the musculoskeletal system - Primary Aftercare | | following surgery of the musculoskeletal system, NEC | + + documented in this encounter
--- OUTSIDE RECORDS SUMMARY | ~2019-09-14 | XMS | Encounter Summary ---
Demographics + + + | Address | [address] | | | [place] [address] | + + + | Home Phone | | + + + | Preferred Language | Unknown | + + + | Marital Status | Single | + + + | Zoroastrianism Affiliation | Unknown | + + + | Race | Unknown | + + + | Ethnic Group | Unknown | + + + Author + + + | Author | [facility] | | | and [facility] | + + + | Organization | [facility] | | [...] | | | | | [place] [address] | | + + + + + Care Team Providers + +------+ + | Care Field Evidence Technician Name | Role | Phone | + [...] Closed | | Radiology | Diagnoses | Ened[place], | PETERSEN | | | | | Wound | Bipin Araujo MD | [facility] | | | | | infection, | [address] | MEDICAL | | | | | subsequent | [address], [address] | CENTER [address] | | | | | encounter | [address] [place] | [address] | | | | | S/P | [place], [place] | [address] | | | | | cholecystect | [address] | [place] | | | | | dianne | Phone: | [place], [place] | | | | | Procedures | [phone] | [address] | | | | | CT Abdomen | Fax: | Phone: | | | | | Pelvis w | [phone] | [phone] | | | | | Contrast | | Fax: | | | | | 12/15> PEND | | [phone] | | | | | [facility] DR[facility] CALL | | | | | | | BACK. | | | | | | | 12/14> STILL | | | | | | | PEND VA | | | | | | | RESPONSE. | | | | | | | 12/13>PEND | | | | | | | VA PROVIDER | | | | | | | RESPONSE. | | | | | | | 12/12>PEND | | | | | | | VA REVIEW / | | | | | | | RESPONSE | | | | | | | 12/11>PEND | | | | | | | VA RESPONSE. | | | | | | | | | | +--------+--------+ + + + + Reason for Visit +---------+ + | Reason | Comments | +---------+ + | Post Op | laparoscopic cholecystectomy | +---------+ + Evaluate & Treat (Routine) +--------+--------+ + + + + | Status | Reason | Specialty | Diagnoses / | Referred By | Referred To | | | | | Procedures | Contact | Contact | +--------+--------+ + + + + | Closed | | Surgery / | Diagnoses | | Mcconnell, | | | | General | PO | [facility] | Bipin Araujo MD | | | | Surgery | Laparoscopic | , Er | [address] | | | | | | | [address] | | | | | cholecystect | | [address] [place] | | | | | dianne/ER [facility] | | [place] | | | | | Procedures | | [address] Phone: | | | | | POST OP | | [phone] | | | | | | | Fax: | | | | | | | [phone] | +--------+--------+ + + + + Encounter Details +--------+---------+ + + + | Date | Type | Department | Care Team | Description | +--------+---------+ + + + | 12/11/ | Office | [facility] | Bipin Mcconnell, | Wound infection, | | 2013 | Visit | SURGERY [address] | [address], | subsequent encounter | | | | ST [place], [place] | [address] [place], | ([facility]) (Primary Dx); | | | | [address] | [place] [address] | S/P cholecystectomy | | | | [phone] | [phone] | | | | | | | | +--------+---------+ + + + [...] + + + | Blood Pressure | 110/54 | 12/11/2013 2:05 PM | | | | | PDT | | + + + + + | Pulse | 86 | 12/11/2013 2:05 PM | | | | | PDT | | + + + + + | Temperature | 36.8 C (98.2 F) | 12/11/2013 2:05 PM | | | | | PDT | | + + + + + | Respiratory Rate | 17 | 12/11/2013 2:05 PM | | | | | PDT | | + + + + + | Oxygen Saturation | 98% | 12/11/2013 2:05 PM | | | | | PDT | | + + + + + | Inhaled Oxygen | - | - | | | Concentration | | | | + + + + + | Weight | 84.8 kg (187 lb) | 12/11/2013 2:05 PM | | | | | PDT | | + + + + + | Height | 172.7 cm (5' 8") | 12/11/2013 2:05 PM | | | | | PDT | | + + + + + | Body Mass Index | 28.43 | 12/11/2013 2:05 PM | | | | | PDT | | + + + + + documented in this encounter Progress Notes Bipin Mcconnell MD - 12/11/2013 2:03 PM PDTFormatting of this note might be different fr om the original. Subjective: He is a patient of Debora Butts here today for evaluation of post op laparoscopi c cholecystectomy. HPI this patient returns to see me after having undergone laparoscopic cholecystectomy and appendectomy and repair of a small bowel enterotomy. The patient has had a tough time with h is recovery. It is unclear as he is not a good historian. He does not feel as if he's having better. He feels tired has had chills is not particularly able to eat. He has trouble with diarrhea. He continues to smoke heavily. He denies significant abdominal pain. He has been u nable to sleep of late. Review of Systems Constitutional: Positive for diaphoresis, activity change, appetite change, fatigue and une xpected weight change. HENT: Positive for neck pain, neck stiffness and dental problem. Eyes: Negative. Respiratory: Positive for apnea. Cardiovascular: Positive for leg swelling. Gastrointestinal: Positive for abdominal distention. Genitourinary: Positive for frequency. Musculoskeletal: Positive for back pain and arthralgias. Skin: Positive for color change. Neurological: Negative. Hematological: Negative. Psychiatric/Behavioral: Positive for sleep disturbance and decreased concentration. Objective: Physical ExamBP 110/54 | Pulse 86 | Temp 36.8 C (98.2 F) (Temporal) | Resp 17 | Ht 1.72 7 m (5' 8") | Wt 84.823 kg (187 lb) | BMI 28.44 kg/m2 | SpO2 98% Heart regular rate and rhythm no murmurs rubs or gallops Lungs clear to auscultation anteriorly and posteriorly Abdomen is soft nondistended nontender with present bowel sounds Incisions Shows significant erythema and induration around the supraumbilical trocar site. There is similar induration around the V millimeter trocar site but of much less extent. Extremities without edema Assessment: Wound infections. I given the patient prescription for Augmentin. He is going to have labor atory studies done CBC and complete metabolic panel. His laboratory studies are not to abnor mal I will hold off on CT of the abdomen. There really was not much in the way of his physic al exam that leads me to believe that he has an intra-abdominal infection as well. The patie nt has been leaking some serous fluid out of his lateral most 5 mm trocar site. This appears noninfected. The patient did have a perforated gallbladder at the time of operation with sp illage of gallbladder contents particularly in the right paracolic gutter. Plan: Antibiotics, laboratory studies further workup as necessary. Patient was given a prescripti on for Ambien 5 mg at bedtime. The patient's white blood cell count is normal and basic meta bolic panel is normal. Liver function tests are pending documented in this e ncounter Plan of Treatment + +---------+--------+ + + | Name | Type | Priori | Associated Diagnoses | Order Schedule | | | | ty | | | + +---------+--------+ + + | CT Abdomen Pelvis w | Imaging | Routin | Wound infection, | Expected: 12/12/2013 | | Contrast | | e | subsequent encounter | (Approximate), | | | | | (HCC) S/P | Expires: 12/11/2014 | | | | | cholecystectomy | | + +---------+--------+ + + documented as of this encounter Results Basic Metabolic Panel (12/11/2013 3:25 PM PDT) [...] | [facility] | | | FINNISH | RATE,ESTIMATED | | MEDICAL | | | | mL/min/1.45s9Xszx than | | CENTER - | | [...] + | [facility] | [address] | [place] | [phone] | | [facility] | | [address] | | | - LABORATORY | | | | + + + + + | [facility] | [address] | [place] | | | [facility] | | [address], [facility] | | [...] + | [facility] | [address] | [place], [place] | [phone] | | [facility] | | [address] | | | - LABORATORY | | | | + + + + + | [facility] | [address] | [place], [place] | | | [facility] | | [address] | | | - LABORATORY | | | | + + + + + documented in this encounter Visit Diagnoses + + | Diagnosis | + + | Wound infection, subsequent encounter - Primary | + + | S/P cholecystectomy Other acquired absence of organ | + + documented in this encounter
--- OUTSIDE RECORDS SUMMARY | ~2019-09-14 | XMS | Encounter Summary ---
Demographics + + + | Address | [address] | | | [place] [address] | + + + | Home Phone | | + + + | Preferred Language | Unknown | + + + | Marital Status | Single | + + + | Mandaen Affiliation | Unknown | + + + | Race | Unknown | + + + | Ethnic Group | Unknown | + + + Author + + + | Author | [facility] | | | and [facility] | + + + | Organization | [facility] | | [...] | | | | | [place] [address] | | + + + + + Care Team Providers + +------+ + | Care Vp Software Support Name | Role | Phone | + [...] | +--------+ + + + + | 05/15/ | Home Care | [facility] | Erika Flanagan, PT | CASE COMMUNICATION | | 2019 | Visit | [facility] [address] | | | | | | [place], [place] | | | | | | [address] | | | | | | [phone] | | | +--------+ + + + [...]
--- OUTSIDE RECORDS SUMMARY | ~2019-09-14 | XMS | Encounter Summary ---
Demographics + + + | Address | [address] | | | [place] [address] | + + + | Home Phone | | + + + | Preferred Language | Unknown | + + + | Marital Status | Single | + + + | Sikhism Affiliation | Unknown | + + + | Race | Unknown | + + + | Ethnic Group | Unknown | + + + Author + + + | Author | [facility] | | | and [facility] | + + + | Organization | [facility] | | | [...] | | | | | [place] [address] | | + + + + + Care Team Providers + +------+ + | Care Soldering Machine Setter Name | Role | Phone | [...] | +--------+ + + + + | 07/05/ | Anesthesia | [facility] | Dariusz Lacey, | | | 2019 | [facility] | [place] [address] | | | | | OPER[address] | [place] [address] | | | | | [address] | [phone] | | | | | [place], [place] | | | | | | [address] | Wilder Brown, | | | | | [phone] | [employer] [address] | | | | | | [place] [address] | | | | | | [phone] | | | | | | | | +--------+ + + + + Anesthesia Record + + + + + | Procedure Name | Responsible | Anesthesia Start | Anesthesia Stop Time | | | Anesthesiologist | Time | | + + + + + | AMPUTATION | Dariusz Lacey MD | 07/05/19 1553 | 07/05/19 1651 | | TRANSMETATARSAL | | | | | (Left Foot) | | | | + + + + + +----+---+ + + | Da | T | Event | Comment | | te | i | | | | | m | | | | | e | | | +----+---+ + + | 02 | 1 | An Start | Reassessment prior to anesthesia induction/procedure. | | /1 | 5 | | | | 2/ | 5 | | | | 20 | 3 | | | | 20 | | | | +----+---+ + + | | 1 | First | | | | 6 | Inc/Proc St | | | | 1 | | | | | 4 | | | +----+---+ + + | | 1 | An Stop | Patient handed off to recovery nurse. | | | 5 | | | | | 1 | | | +----+---+ + + +------+ | Meds | +------+ + + + | Name | Total | + + + | midazolam 2 mg/mL | 2 mg | + + + | lidocaine 2% | 40 mg | + + + | propofol infusion | 222.16 mg | + + + | ropivacaine 0.5% | 25 mL | + + + | balanced electrolytes in water | 200 mL | | (PLASMALYTE-148/NORMOSOL-R) | | | infusion | | + + + + + | Name | + + | N2O Flow Rate (L/Min) | + + | O2 Flow Rate (L/Min) | + + | Insp O2 | + + | Exp N2O | + + | Exp SEV | + + | Air Flow Rate (L/Min) | + + + + | No blood administrations on file. | + + +--------+ + + + | Type | Details | Placement | Removal | +--------+ + + + | Wound | 05/04/19 (present upon arrival to | 05/04/192249 by | | | | pacu1); 2249; Incision; Left; | Trang Mata RN | | | | other (see comments) (3rd. 4th, | | | | | and 5th toes amputated); | | | | | amputation stump | | | +--------+ + + + | Wound | 07/05/19; 1631; Incision; Left; | 07/05/19 1631 by | | | | foot; Softroll and ortholass | Magda Roblero | | | | applied as well | RODGER Herrera | | +--------+ + + + | Periph | 07/04/19; 0948; [id number] | 07/04/19 0948 by | 07/07/19103 by | | eral | catheter system; 20 gauge; | Jason Yoder, | Alvina Salazar RN | | IV | Hematology; 07/07/19; 0104 | RN | | +--------+ + + + documented [...] + +--------+ + + + | ANE NERVE BLOCK | Routin | 07/05/2019 | | Results for this | | CATHETER NOTE | e | 4:16 PM | | procedure are in the | | | | PST | | results section. | + +--------+ + + + documented in this encounter Results Nerve Block (07/05/2019 4:16 PM PST) + + + | Narrative | Performed At | + + + | Dariusz Lacey MD 07/05/2019 4:16 PM Perineural Procedure | | | Note 07/05/2019 3:44 PM Nerve block: popliteal sciatic | | | Laterality: left Continuous block with catheter: No Indication: | | | acute pain management and postoperative analgesia Preprocedure | | | check: patient identified, risks/benefits discussed and reassessment | | | prior to procedure Patient position: supine Preparation: | | | chlorhexidine/isopropyl alcohol Introducer used: no Technique: | | | ultrasound Needle: stimulating Needle size: 20 g Needle length: 4 | | | in Attempts: 1 Please see anesthesia record or | | | flowsheet for vital sign documentation and see anesthesia record or | | | MAR for additional medication documentation. Performing | | | provider: Dariusz Lacey MD Authorizing provider: Dariusz Lacey | | | MD | | + + + documented in this encounter Visit Diagnoses Not on filedocumented in this encounter Administered Medications + + + +------+------+------+ | Medication Order | MAR | Action | Dose | Rate | Site | | | Action | Date | | | | + + + +------+------+------+ | balanced electrolytes in water | Continue [...] | | | | + + + +------+------+------+ +---------+ +---+ +---+ | New Bag | 07/05/19 | | 30 mL/hr | | | | 20 3:26 | | | | | | PM PST | | | | +---------+ +---+ +---+ +---+---+ | | | +---+---+ + +-------+ +-------+---+---+ | lidocaine (PF) 2% injection | Given | 07/05/19 | 40 mg | | | | Intravenous, PRN, Starting Wed | | 20 4:00 | | | | | 07/05/19 at 1600, Anesthesia | | PM PST | | | | | Intra-op | | | | | | + +-------+ +-------+---+---+ +---+---+ | | | +---+---+ + +-------+ +------+---+---+ | midazolam (VERSED) 1 mg/mL | Given | 07/05/19 | 2 mg | | | | injection Intravenous, PRN, | | 20 3:53 | | | | | Starting 07/05/19 at 1553, | | PM PST | | | | | Anesthesia Intra-op | | | | | | + +-------+ +------+---+---+ +---+---+ | | | +---+---+ + +---------+ + + +---+ | propofol infusion (DIPRIVAN) 10 | New Bag | 07/05/19 | 85 | 37 mL/hr | | | mg/mL infusion Intravenous, | | 20 4:00 | mcg/kg/m | | | | CONTINUOUS PRN, Starting Wed | | PM PST | in | | | | 07/05/19 at 1600, Anesthesia | | | | | | | Intra-op | | | | | | + +---------+ + + +---+ +---+---+ | | | +---+---+ + +-------+ +--------+---+---+ | ropivacaine (NAROPIN) 5 mg/mL | Given | 07/05/19 | 25 mLs | | | | (0.5%) injection PERINEURAL, | | 20 3:47 | | | | | PRN, Starting 07/05/19 at | | PM PST | | | | | 1547, Anesthesia Intra-op | | | | | | + +-------+ +--------+---+---+ +---+---+ | | | +---+---+ documented in this encounter"
--- OUTSIDE RECORDS SUMMARY | ~2019-09-14 | XMS | Encounter Summary ---
Demographics + + + | Address | [address] | | | [place] [address] | + + + | Home Phone | | + + + | Preferred Language | Unknown | + + + | Marital Status | Single | + + + | Jainism Affiliation | Unknown | + + + | Race | Unknown | + + + | Ethnic Group | Unknown | + + + Author + + + | Author | [facility] | | | and [facility] | + + + | Organization | [facility] | | | [...] | | | | | [place] [address] | | + + + + + Care Team Providers + +------+ + | Care Materials Technician Name | Role | Phone | + +------+ + | Debora Butts | PCP | | + +------+ + Encounter Details +--------+ + + + + | Date | Type | Department | Care Team | Description | +--------+ + + + + | 11/05/ | Hospital | [facility] | Conversion | Pain | | 2016 | Encounter | CONVERSION [address]P [address] | Transaction, | | | | | [place] | Provider Unknown | | | | | [place] | [phone] | | | | | [address] | | | | | | [phone] | | | +--------+ + + + [...] + +--------+ + + + | CT ANGIOGRAM NECK W | Routin | 10/10/2015 | | Results for this | | CONTRAST | e | 2:27 PM | | procedure are in the | | | | PDT | | results section. | + +--------+ + + + documented in this encounter Results CT Angiogram Neck w Contrast (10/10/2015 2:27 PM PDT) + + | Specimen | [...]
--- OUTSIDE RECORDS SUMMARY | ~2019-09-14 | XMS | Encounter Summary ---
Demographics + + + | Address | [address] | | | [place] [address] | + + + | Home Phone | | + + + | Preferred Language | Unknown | + + + | Marital Status | Single | + + + | Muslim Affiliation | Unknown | + + + | Race | Unknown | + + + | Ethnic Group | Unknown | + + + Author + + + | Author | [facility] | | | and [facility] | + + + [...] | | | | | [place] [address] | | + + + + + Care Team Providers + +------+ + | Care Bulk Driver Name | Role | Phone | + +------+ + | Shi Miramontes | PCP | | + +------+ + Reason for Visit +---------+ + | Reason | Comments | +---------+ + | Consult | | +---------+ + Encounter Details +--------+ + + + + | Date | Type | Department | Care Team | Description | +--------+ + + + + | 06/16/ | Telephone | [facility] | Dannielle Carrasco, | Consult | | 2019 | | VASCULAR SURGERY | Tube Maker | | | | | [address] | | | | | | [place], [place] | | | | | | [address] | | | | | | [phone] | | | +--------+ + + + [...] arterioles | + + documented in this encounter"
--- OUTSIDE RECORDS SUMMARY | ~2019-09-14 | XMS | Encounter Summary ---
Demographics + + + | Address | [address] | | | [place] [address] | + + + | Home Phone | | + + + | Preferred Language | Unknown | + + + | Marital Status | Single | + + + | Protestant Affiliation | Unknown | + + + | Race | Unknown | + + + | Ethnic Group | Unknown | + + + Author + + + | Author | [facility] | | | and [facility] | + + + | Organization | [facility] | | [...] | | | | | [place] [address] | | + + + + + Care Team Providers + +------+ + | Care Mechanical Detailer Name | Role | Phone | + +------+ + | Shi Miramontes | PCP | | + +------+ + Reason for Visit Evaluate & Treat (Routine) + +--------+ + + + + | Status | Reason | Specialty | Diagnoses / | Referred By | Referred To | | | | | Procedures | Contact | Contact | + +--------+ + + + + | Pending | | Vascular | Diagnoses | Santos Miramontes [facility] | | Review | | Surgery | Peripheral | ANATOLY Osullivan | Surgery | | | | | vascular | [address] | [address] | | | | | disease, | RACHEL | [address] | | | | | unspecified | [address] | [place] | | | | | ([facility]) | [place] | [address] | | | | | | [address] | Phone: | | | | | | Phone: | [phone] | | | | | | [phone] | Fax: | | | | | | Fax: | [phone] | | | | | | [phone] | | + +--------+ + + + + Encounter Details +--------+ + + + + | Date | Type | Department | Care Team | Description | +--------+ + + + + | 06/21/ | Hospital | [facility] | | PAD (peripheral | | 2020 | Encounter | VASCULAR SURGERY | | artery disease) | | | | ULTRASOUND [address] | | ([facility]) | | | | [address] | | | | | | [place] | | | | | | [address] | | | | | | [phone] | | | +--------+ + + + [...] | 4 mg/nasal spray | as needed. [place] [address] | | | | | | [...] | + +--------+ + + + | VAS LOWER EXTREMITY | Routin | 06/21/2019 | PAD (peripheral | Results for this | | ARTERIAL RIGHT W BERT | e | 3:38 PM | artery disease) | procedure are in the | | MULTI LEVEL | | PST | ([facility]) | results section. | + +--------+ + + + documented in this encounter Results VAS Lwr Ext Art Rt w BERT Multi Lvl (06/21/2019 3:38 PM PST) + + | Specimen | + + | | + + + + + | Impressions | Performed At | + + + | 1. Biphasic CHARTER BOAT CAPTAIN inflow. 2. Tandem stenosis SFA. >50% stenosis | [facility] | | proximal SFA 101-270 cm/sec (2.7 fold). > 70% stenosis distal SFA | | | 36-253 cm/sec (7 fold). 3. Monophasic popliteal outflow. 4. Appears | | | to be three-vessel runoff, however technically difficult to assess | | | due to arterial wall calcification. 1. Right leg AKA. 2. Left ankle | | | monophasic waveforms. 3. Severely diminished left BERT. 4. Left | | | transmetatarsal amputation. Criteria 0.97 to 1.25 No | | | significant PAD 0.75 to 0.96 Mild 0.50 to 0.74 Moderate <0.50 | | | Severe <0.30 Critical (Noninvasive Vascular Diagnosis, Cristobal, | | | [employer], 2002, [place]) Signed by: Lavon Villarreal Shawn | | | Sign Date/Time: 06/22/2019 12:26 PM | | + + + + + + | Narrative | Performed At | + + + | VASCULAR LOWER EXTREMITY ARTERIAL RIGHT W BERT MULTI LEVEL | [facility] | | CLINICAL INFORMATION: Consult for Peripheral vascular disease. | | | COMPARISON: CT ANGIOGRAM LOWER EXTREMITY RIGHT W CONTRAST | | | (02/02/2017); CT FEMUR THIGH RIGHT W CONTRAST (03/20/2017); | | | PROCEDURE: Eight megahertz linear sonographic grayscale, color flow, | | | spectral Doppler evaluation of the arterial structures of the left | | | lower extremity. Dorsalis pedis and posterior tibial arteries | | | used for BERT calculation. Ankle-brachial indices, segmental | | | pressures, doppler waveforms and pulse volume waveforms were obtained | | | bilaterally. FINDINGS: Vessel, peak systolic velocity in cm/sec, | | | waveform analysis: Left lower extremity: CHARTER BOAT CAPTAIN prox: 254, biphasic | | | DFA prox: 270, biphasic SFA prox: 307, monophasic SFA dist: 253, | | | monophasic Pop mid: 36, monophasic PIETER prox: 43, monophasic PIETER | | | dist: 21, monophasic TEXTILE MACHINERY INSTRUCTOR prox: 39, monophasic TEXTILE MACHINERY INSTRUCTOR dist: 28, | | | monophasic Peroneal prox: 10, monophasic Peroneal dist: 9, | | | monophasic Right brachial systolic blood pressure: 130 4 mm Hg | | | Left brachial systolic blood pressure 138 mmHg Right above the | | | knee amputation. Left posterior tibial: 45 mm Hg, BERT 0.33 Left | | | dorsalis pedis: 35, BERT 0.25 Transmetatarsal amputation. Monophasic | | | waveforms at the left ankle sites. | | + + + + + | Procedure Note | + + | Raymundo Kaminski Results In 06/22/2019 12:30 PM PST | | VASCULAR LOWER EXTREMITY ARTERIAL RIGHT W BERT MULTI LEVEL | | | | CLINICAL INFORMATION: | | Consult for Peripheral vascular disease. | | | | COMPARISON: | | CT ANGIOGRAM LOWER EXTREMITY RIGHT W CONTRAST (02/02/2017); CT FEMUR | | THIGH RIGHT W CONTRAST (03/20/2017); | | | | PROCEDURE: | | Eight megahertz linear sonographic grayscale, color flow, spectral | | Doppler evaluation of the arterial structures of the left lower | | extremity. | | | | Dorsalis pedis and posterior tibial arteries used for BERT calculation. | | Ankle-brachial indices, segmental pressures, doppler waveforms and | | pulse volume waveforms were obtained bilaterally. | | | | FINDINGS: | | Vessel, peak systolic velocity in cm/sec, waveform analysis: | | | | Left lower extremity: | | CHARTER BOAT CAPTAIN prox: 254, biphasic | | DFA prox: 270, biphasic | | SFA prox: 307, monophasic | | SFA dist: 253, monophasic | | Pop mid: 36, monophasic | | PIETER prox: 43, monophasic | | PIETER dist: 21, monophasic | | TEXTILE MACHINERY INSTRUCTOR prox: 39, monophasic | | TEXTILE MACHINERY INSTRUCTOR dist: 28, monophasic | | Peroneal prox: 10, monophasic | | Peroneal dist: 9, monophasic | | | | Right brachial systolic blood pressure: 130 4 mm Hg | | Left brachial systolic blood pressure 138 mmHg | | | | Right above the knee amputation. | | | | Left posterior tibial: 45 mm Hg, BERT 0.33 | | Left dorsalis pedis: 35, BERT 0.25 | | Transmetatarsal amputation. | | Monophasic waveforms at the left ankle sites. | | | | IMPRESSION: | | 1. Biphasic CHARTER BOAT CAPTAIN inflow. | | 2. Tandem stenosis SFA. | | >50% stenosis proximal SFA 101-270 cm/sec (2.7 fold). | | > 70% stenosis distal SFA 36-253 cm/sec (7 fold). | | 3. Monophasic popliteal outflow. | | 4. Appears to be three-vessel runoff, however technically difficult to | | assess due to arterial wall calcification. | | 1. Right leg AKA. | | 2. Left ankle monophasic waveforms. | | 3. Severely diminished left BERT. | | 4. Left transmetatarsal amputation. | | | | | | Criteria | | 0.97 to 1.25 No significant PAD | | 0.75 to 0.96 Mild | | 0.50 to 0.74 Moderate | | <0.50 Severe | | <0.30 Critical | | (Noninvasive Vascular Diagnosis, Cristobal [employer], 2002, [place]) | | | | | | | | Signed by: Lavon Villarreal, Teddy | | Sign Date/Time: 06/22/2019 12:26 PM | + + + +---------+ + + | Performing | Address | City/State[facility] | Phone Number | | Organization | [...]
--- OUTSIDE RECORDS SUMMARY | ~2019-09-14 | XMS | Encounter Summary ---
Demographics + + + | Address | [address] | | | [place] [address] | + + + | Home Phone | | + + + | Preferred Language | Unknown | + + + | Marital Status | Single | + + + | Restoration Affiliation | Unknown | + + + | Race | Unknown | + + + | Ethnic Group | Unknown | + + + Author + + + | Author | [facility] | | [facility] | + + + | Organization | [facility] | | | [...] | | | | | [place] [address] | | + + + + + Care Team Providers + +------+ + | Care Log Feeder Name | Role | Phone | + [...] | +--------+ + + + + | 05/09/ | Home Care | [facility] | Debra Fuentes RN | SN SOC ([facility]) | | 2019 | Visit | [facility] [address] | | | | [facility] [place] | | | | | | [address] | | | | | | [phone] | | | +--------+ + + + [...] + + + | Blood Pressure | 150/72 | 05/09/2019 4:12 PM | | | | | PST | | + + + + + | Pulse | 86 | 05/09/2019 4:12 PM | | | | | PST | | + + + + + | Temperature | 35.9 C (96.6 F) | 05/09/2019 4:12 PM | | | | | PST | | + + + + + | Respiratory Rate | 18 | 05/09/2019 4:12 PM | | | | | PST | | + + + + + | Oxygen Saturation | 97% | 05/09/2019 4:12 PM | RA | | | | PST | | + + + + + | Inhaled Oxygen | - | - | | | Concentration | | | | + + + + + | Weight | 72.1 kg (159 lb) | 05/09/2019 4:12 PM | | | | | PST | | + + + + + | Height | 172.7 cm (5' 8") | 05/09/2019 4:12 PM | | | | | PST | | + + + + + | Body Mass Index | 24.18 | 05/09/2019 4:12 PM | | | | | PST [...] + | Visit Type - SN - [facility] START OF CARE | | Discipline - Prison | + + + + +--------+--------+-------+ + | Problem | Description | Start | Status | Goals | Interventio | | | | Date | | | ns | + + +--------+--------+-------+ + | Central/Midline IV | PICC right upper | | | - | 2 problem | | Disciplines: | arm | 05/09/ | Active | | | | Prison | | 2019 | | | interventio [...] 05/09/ | Active | | | | Prison | | 2018 | | | interventio [...] Assess and | Problem: | | | PICC on right upper | | identify | Central/Midline IV | Comple | | arm dressing CDI. It is | | complications from | | tj | | patent and has no | | IV therapy | | | | difficulty administer | | Description: | | | | medication. No s/s of | | Assess and identify | | | | infection. | | s/s of infection | | [...] PICC daily until | | | | Rocephin: Yes | | 06/15/19 (Pt's | | | | | | daughter is doing it | | | | | | at 1700). Flush | | | | | | with 10 ml NS then | | | | | | 5ml Heparin. | | | | | + + +--------+--------+ + | Wound care | Problem: [facility] | | | Cleaned with NS. | | Description: Wound | Wound | Comple | | Applied non adherent oil | | type: Left toes | | tj | | emulsion dressing and | | amputation and I&D. | | | | gauze, kerlix and tape. | | Wound care : RN | | | | Daughter was able to do | | Clean with wound | | | | dressing change with RN | | cleanser. Apply non | | | | instruction. No s/s of | | adherent oil | | | | infection. | | emulsion dressing | | | [...] prn. | | | | | | Wound type: Left | | | | | | toes amputation and | | | | | | I&D. Wound care : | | | | | | RN Clean with wound | | | | [...] | | | | | | gauze. Teach family | | | | | | to change daily. | | | | | | Meazure wound every | | | | | | 2 weeks and prn. | | | | | + + +--------+--------+ + | HH Measure Wound | Problem: Surgical | | | | | Description: | Wound | Comple | | | | Measure wound every | | tj | | | | 2 weeks and prn. | | | | | + + +--------+--------+ + documented in this encounter
--- OUTSIDE RECORDS SUMMARY | ~2019-09-14 | XMS | Encounter Summary ---
Demographics + + + | Address | [address] | | | [place] [address] | + + + | Home Phone | | + + + | Preferred Language | Unknown | + + + | Marital Status | Single | + + + | Voodoo Affiliation | Unknown | + + + | Race | Unknown | + + + | Ethnic Group | Unknown | + + + Author + + + | Author | [facility] | | | [facility] | + + + | Organization | [facility] | | [...] | | | | | [place] [address] | | + + + + + Care Team Providers + +------+ + | Care Poultry Tender Name | Role | Phone | + +------+ + | Shi Miramontes | PCP | | + +------+ + Encounter Details +--------+ + + + + | Date | Type | Department | Care Team | Description | +--------+ + + + + | 06/22/ | Home Care | [facility] | Erika Flanagan, PT | CASE COMMUNICATION | | 2020 | Visit | [address] [address] | | | | | | [place] | | | | | | [address] | | | | | | [phone] | | | +--------+ + + + [...]
--- OUTSIDE RECORDS SUMMARY | ~2019-09-14 | XMS | Encounter Summary ---
Demographics + + + | Address | [address] | | | [place] [address] | + + + | Home Phone | | + + + | Preferred Language | Unknown | + + + | Marital Status | Single | + + + | Restoration Affiliation | Unknown | + + + | Race | Unknown | + + + | Ethnic Group | Unknown | + + + Author + + + | Author | [facility] | | | [facility] | + + + | Organization | [facility] | | | [...] | | | | | [place] [address] | | + + + + + Care Team Providers + +------+ + | Care Turret Lathe Set Up Operator Name | Role | Phone | + +------+ + | Shi Miramontes | PCP | | + +------+ + Encounter Details +--------+ + + + + | Date | Type | Department | Care Team | Description | +--------+ + + + + | 07/25/ | Hospital | [facility] | | No Show | | 2020 | Encounter | VASCULAR SURGERY | | | | | | ULTRASOUND [address] | | | | | | [address] | | | | | | [place] | | | | | | [address] | | | | | | [phone] | | | +--------+ + + + [...]
--- OUTSIDE RECORDS SUMMARY | ~2019-09-14 | XMS | Encounter Summary ---
Demographics + + + | Address | [address] | | | [place] [address] | + + + | Home Phone | | + + + | Preferred Language | Unknown | + + + | Marital Status | Single | + + + | Jainism Affiliation | Unknown | + + + | Race | Unknown | + + + | Ethnic Group | Unknown | + + + Author + + + | Author | [facility] | | | and [facility] | + + + | Organization | [facility] | | | and [...] | | | | | [place] [address] | | + + + + + Care Team Providers + +------+ + | Care Chief Engineer Name | Role | Phone | + +------+ + | Debora Butts | PCP | | + +------+ + Reason for Visit + + + | Reason | Comments | + + + | Post-op Problem | | + + + Auth/Cert +--------+--------+ + + + + | Status | Reason | Specialty | Diagnoses / | Referred By | Referred To | | | | | Procedures | Contact | Contact | +--------+--------+ + + + + | | | | Diagnoses | | | | | | | Amputation | | | | | | | stump | | | | | | | infection | | | | | | | (HCC) | | | +--------+--------+ + + + + Encounter Details +--------+ + + + + | Date | Type | Department | Care Team | Description | +--------+ + + + + | 03/18/ | Hospital | [facility] | Zurdo Villarreal MD | Amputation stump | | 2017 - | Encounter | [facility] | [address] | infection (HCC) | | | | [address] [place] | [place] | (Primary Dx); Type 2 | | 03/20/ | | [place] [address] | [id number] | diabetes mellitus | | 2017 | | [phone] | | with other specified | | | | | [place], | complication, | | | | | MD Jj [address] | without long-term | | | | | [address] [place] | current use of | | | | | [place] [address] | insulin ([facility]); | | | | | [phone] | Hyponatremia; | | | | | | Gastroesophageal | | | | | | reflux disease, | | | | | | esophagitis presence | | | | | | not specified; | | | | | | Essential | | | | | | hypertension; | | | | | | Peripheral vascular | | | | | | disease ([facility]); | | | | | | Smoker [...] + + + | Blood Pressure | 140/68 | 03/20/2017 8:30 AM | | | | | PDT | | + + + + + | Pulse | 82 | 03/20/2017 8:30 AM | | | | | PDT | | + + + + + | Temperature | 37 C (98.6 F) | 03/20/2017 8:30 AM | | | | | PDT | | + + + + + | Respiratory Rate | 18 | 03/20/2017 8:30 AM | | | | | PDT | | + + + + + | Oxygen Saturation | 97% | 03/20/2017 8:30 AM | | | | | PDT | | + + + + + | Inhaled Oxygen | - | - | | | Concentration | | | | + + + + + | Weight | 81.6 kg (180 lb) | 03/18/2017 2:51 PM | | | | | PDT | | + + + + + | Height | 175.3 cm (5' 9") | 03/18/2017 10:10 AM | | | | | PDT | | + + + + + | Body Mass Index | 26.58 | 03/18/2017 10:10 AM | | | | | PDT [...] documented as of this encounter Discharge Summaries Simón Ely MD - 03/20/2017 12:16 PM PDT Physician Discharge Summary Patient Id: Valentina Bunn [id number] 71 y.o. 1945 Admit date: 03/18/2017 Discharge date and time: No discharge date for patient encounter. 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 Bunn was admitted for management of suspected left amputation stump infection. He was started on IV Zosyn and vancomycin empirically as well as IV fluids and IV pain medication a s needed. A CT scan of the left femur was ordered to further evaluate the area and rule out a possible abscess/abscesses. He responded very well to antimicrobial therapy and other barry pportive therapies, and by the following day he was feeling much better. There was some del ay in performing the CT scan of the femur, so the report was not available to me until the day of admission. The radiologist who read the CT scan reported that there were some f luid collections in 3 different areas just distal to the stump. He made a suggestion that t hat they could be abscesses in the right clinical setting. I was able to speak with the [facility] surgeon on-call, Dr. Cohen, and he agreed to take a look at the stump prior to the patient going home. He was able to express some fluid from the medial aspect of the stump a fter removing a couple of prashanth there, and he said that what he saw was not pus at all, bu t more of a thin serosanguineous fluid. Dr. Cohen said that this was expected so soon afte r surgery and that it was okay for the patient to be discharged home and follow up at the und care clinic as soon as possible after discharge. He was of the opinion that the fluid c ollections were not abscesses at all but more likely seromas. Mr. Bunn was stable at the time of discharge. The wound care clinic was set up through [place] so he will be going there on Wednesday ( in 2 days time). Consults: Orthopedic surgery, Dr. Cohen Significant Diagnostic Studies: labs: see reports, microbiology: blood culture: negative an d urine culture: pending at discharge and radiology: CXR: normal CT left femur w contrast: Findings are most suggestive of abscesses formed in the soft tissues around the amputation site of the proximal femur. Depending on the timing of surgery these could be noninfectious fluid collections. There appear to be 2, possibly 3, different abscess collections. The more proximal lateral collection is less well-defined. The more inferior collections are somewhat more defined and show more rim enhancement. The largest collection inferiorly located measures about 9 cm longitudinally by about 3.6 mm anterior to posterior. Thrombosis within the superficial femoral vein to the remaining right lower Extremity Treatments: IV hydration, antibiotics: vancomycin and Zosyn, analgesia: acetaminophen and a cetaminophen w/ codeine and anticoagulation: LMW heparin Discharge Exam: Gen Bebe - elderly white male seen at the bedside. He was alert, cooperative and no distr ess, not pale, anicteric and afebrile Head - Normocephalic, without obvious abnormality Eyes - PERRL, conjunctiva/corneas clear, EOMI ENT - mucous membranes moist, normal appearance of the external ears and nose. There w as no pharyngeal erythema or oral lesions noted. Neck - supple Lungs - clear to auscultationexcept for faint expiratorywheezes; no crackles were ap preciated and his breathing wasunlabored Heart - normal rate, regular rhythm, normal S1, S2, no murmurs, rubs, clicks or gallops Abdomen - soft, non-tender, without masses or organomegaly, nondistended and normal deborah l sounds Extremities - no peripheral edema, no clubbing or cyanosisleft lower extremity. Recent Rt AKA Skin - no rashes, no ecchymoses, no jaundice. The right AKA stump loks better today and there is less erythema compared with yesterday. I did not appreciate any obvious drainage co roderick from the area. The skin at the site also appeared irritated. Small stage II ulcer on th e right buttock cheek Neurologic - Alert and oriented x 3. No focal neurological deficits Psychiatric-appropriate affect and mood Disposition: home Patient Instructions: Discharge Medications New Medications Details amoxicillin-clavulanate 875-125 mg per tablet Take 1 tablet by mouth 2 times daily for 12 days. aka: AUGMENTIN Unchanged Medications Details AQUACEL-AG HYDROFIBER 0.39"X18" Misc Apply topically Every 3 days. ascorbic acid 500 mg tablet Take 500 mg by mouth Daily. aka: VITAMIN C aspirin 81 mg chewable tablet Take 81 mg by mouth Daily. Calcium 600 + D 600-400 MG-UNIT Tabs Generic drug: calcium-vitamin D Take 1,200 mg by mouth every evening. celecoxib 200 mg capsule Take 200 mg by mouth 2 times daily. aka: CELEBREX cholecalciferol 1,000 units tablet Take 2,000 Units by mouth Daily. aka: VITAMIN D-3 clopidogrel 75 mg tablet Take 75 mg by mouth Daily. aka: PLAVIX cyclobenzaprine 10 mg tablet Take 10 mg by mouth 3 times daily as needed for Muscle spasms. aka: FLEXERIL docusate sodium 250 MG capsule Take 250 mg by mouth 2 times daily. aka: COLACE glucose blood test strips strip by In Vitro route as needed. HYDROcodone-acetaminophen 7.5-325 mg per tablet Take 1 tablet by mouth every 6 hours as needed. aka: NORCO HYDROmorphone 2 mg tablet Take 2 mg by mouth every 4 hours as needed for Pain. aka: DILAUDID magnesium oxide 420 MG Tabs Take 420 mg by mouth Daily. aka: MAOX MEPILEX EX Apply topically. metFORMIN 1000 MG tablet Take 1,000 mg by mouth 2 times daily (with breakfast & dinner). aka: GLUCOPHAGE MULTIPLE VITAMINS-MINERALS PO Take 1 tablet by mouth Daily. omeprazole 20 mg capsule Take 20 mg by mouth 2 times daily. aka: priLOSEC senna 8.6 mg tablet Take 1 tablet by mouth Daily. aka: SENOKOT sildenafil 50 MG tablet Take 50 mg by mouth as needed. aka: VIAGRA simvastatin 20 mg tablet Take 20 mg by mouth nightly. aka: ZOCOR traZODone 100 mg tablet Take 150 mg by mouth nightly. aka: DESYREL Discontinued Medications clindamycin 300 MG capsule aka: CLEOCIN clotrimazole 1% cream aka: LOTRIMIN gabapentin 300 mg capsule aka: NEURONTIN lisinopril 20 mg tablet aka: PRINIVIL, ZESTRIL metoprolol succinate 25 mg 24 hr tablet aka: TOPROL-XL Activity: activity as tolerated Diet: diabetic diet Wound Care: as directed Follow-up with PCP in 5 days and with wound care clinic [facility] after discharge Signed: Jj Ely MD 03/20/2017 12:16 documented in thi s encounter Medications at Time of Discharge + [...] | | Take 1 tablet by | 24 | 0 | 03/20/20 | | | amoxicillin-clavulan | mouth 2 times daily | tablet | | 17 | 7 | | ate (AUGMENTIN) | for 12 days. | | | | | | 875-125 mg per | | | | | | | tablet [...] documented as of this encounter Progress Notes Simón Ely MD - 03/19/2017 1:[address] [facility] HOSPITALIST PROGRESS NOTE Patient: Valentina Bunn : 1945: Age: 71 y.o. MedRec: [id number] PCP: ANATOLY Mohan Admission date: 03/18/2017 Hospital day # : 1 Physician author: Jj Ely MD Today: 03/19/2017 SUBJECTIVE: Mr Bunn is a 71 y.o.WM who was admitted for management of rt amputation stump infection. He is feeling so much better today. He seems pretty pleased with his progress thus far. Ther e has been no more fever, or nausea and his appetite has improved. He would like me to swit ch him from a diabetic diet to a regular diet. Review of systems: Pertinent positives as noted under subjective. All other systems were reviewed and are neg ative Scheduled Meds: ascorbic acid 500 mg Oral Daily aspirin 81 mg Oral Daily atorvaSTATin 10 mg Oral Nightly calcium-vitamin D 2 tablet Oral QPM celecoxib 200 mg Oral BID cholecalciferol 2,000 Units Oral Daily clopidogrel 75 mg Oral Daily docusate calcium 240 mg Oral BID enoxaparin 40 mg Subcutaneous Daily insulin glargine 0.2 Units/kg/day Subcutaneous Nightly insulin lispro 0-12 Units Subcutaneous 4x Daily WC and HS nicotine 1 patch Transdermal Daily pantoprazole 40 mg Oral QAM AC piperacillin-tazobactam 3.375 g Intravenous Q8H senna 8.6 mg Oral Daily traZODone 150 mg Oral Nightly vancomycin 1,250 mg Intravenous Q12H vancomycin per pharmacy Other Pharmacy Consult Continuous Infusions: sodium chloride 0.9% 100 mL/hr at 03/18/17 1508 PRN Meds:.acetaminophen, bisacodyl, cyclobenzaprine, Hypoglycemia Management AND POCT G lucose AND dextrose, HYDROcodone-acetaminophen, morphine, ondansetron, polyethylene glyc ol VITALS: Temp: 36.8 C (98.2 F), Pulse: 88, Resp: 18, BP: 155/68, SpO2 98 % on room air at flow r ate L/min Temp Min: 36.4 C (97.5 F) Max: 36.8 C (98.2 F) Weight: 81.6 kg (180 lb) I/O last 3 completed shifts: In: 1747 [P.O.:450; I.V.:1297] Out: 850 [Urine:850] I/O this shift: In: 120 [P.O.:120] Out: 300 [Urine:300] PHYSICAL EXAM: Gen Bebe - elderly white male seen at the bedside. He was alert, cooperative and no distr ess, not pale, anicteric and afebrile Head - Normocephalic, without obvious abnormality Eyes - PERRL, conjunctiva/corneas clear, EOMI ENT - mucous membranes moist, normal appearance of the external ears and nose. There wa s no pharyngeal erythema or oral lesions noted. Neck - supple Lungs - clear to auscultation except for faint expiratory wheezes; no crackles were appr eciated and his breathing was unlabored Heart - normal rate, regular rhythm, normal S1, S2, no murmurs, rubs, clicks or gallops Abdomen - soft, non-tender, without masses or organomegaly, nondistended and normal deborah l sounds Extremities - no peripheral edema, no clubbing or cyanosis left lower extremity. Recent Rt AKA There was no tenderness to palpation of the right thigh above the stump Skin - no rashes, no ecchymoses, no jaundice. The right AKA stump loks better today and there is less erythema compared with yesterday. I did not appreciate any obvious drainage co roderick from the area. The skin at the site also appeared irritated. Small stage II ulcer on th e right buttock cheek Neurologic - Alert and oriented x 3. No focal neurological deficits Psychiatric-appropriate affect and mood DIAGNOSTIC STUDIES: Available data and images were reviewed personally. Significant results and findings are a ddressed here or in the Assessment and Plan. Recent Results (from the past 24 hour(s)) Urinalysis with Microscopic with Culture if Indicated Result Value Ref Range COLOR Yellow Light Yellow, Yellow, Straw CLARITY Hazy (A) Clear PH UA 6.0 5.0 - 8.0 Specific [place] 1.019 1.001 - 1.030 PROTEIN UA 30 mg/dL (A) Negative BLOOD UA Negative Negative GLUCOSE UA Negative Negative KETONES UA Negative Negative BILIRUBIN UA Negative Negative NITRITE UA Positive (A) Negative LEUKOCYTES ESTERASE UA Trace (A) Negative UROBILINOGEN UA Negative 0.2 mg/dL, 1.0 mg/dL, Negative WBC UA 15-25 (A) 0 - 2 /HPF RBC UA 0-2 0 - 2 /HPF SQUAMOUS EPITHELIAL UA 15-25 (A) 0 - 2 /LPF BACTERIA UA 4+ (A) Negative /HPF MUCUS UA Present (A) Negative /LPF HYALINE CASTS UA 2-5 (A) 0 - 2 /LPF URINE COMMENT Urine Culture Set Up Culture, Urine Result Value Ref Range Culture 50,000 CFU/ml Lactose Fermenting Gram Negative Bacilli POC Glucose Result Value Ref Range Glucose, POC 138 (H) 70 - 109 mg/dL POC Glucose Result Value Ref Range Glucose, POC 104 70 - 109 mg/dL Basic Metabolic Panel Result Value Ref Range NA 133 (L) 136 - 149 mmol/L K 3.9 3.5 - 5.1 mmol/L CL 103 98 - 109 mmol/L CO2 22 (L) 24 - 31 mmol/L ANION GAP 8 3 - 16 mmol/L GLUCOSE 115 (H) 70 - 109 mg/dL BUN 10 7 - 18 mg/dL Creatinine, Serum/Plasma 0.80 0.60 - 1.30 mg/dL eGFR if not >60 >=60 mL/min/1.73m2 CALCIUM 8.8 8.3 - 10.5 mg/dL BUN/CREA 12.5 CBC with Differential Result Value Ref Range WBC 7.2 4.0 - 11.0 K/uL RBC 4.02 (L) 4.30 - 5.70 M/uL Hgb 12.5 (L) 13.5 - 18.0 g/dL Hct 37.3 (L) 40.0 - 51.0 % MCV 92.8 83.0 - 101.0 fL MCH 31.1 28.0 - 35.0 pg MCHC 33.5 32.0 - 36.0 g/dL RDW-CV 14.8 <15.0 % Platelet Count 446 (H) 140 - 440 K/uL MPV 10.1 fL % Neutrophils 60.8 45.0 - 82.0 % % Lymphocytes 28.9 20.0 - 45.0 % % Monocytes 7.6 4.0 - 12.0 % % Eosinophils 1.3 0.0 - 5.0 % % Basophils 1.4 (H) 0.0 - 1.0 % Absolute Neutrophils 4.40 1.80 - 8.50 K/uL Absolute Lymphocytes 2.10 0.60 - 3.20 K/uL Absolute Monocytes 0.50 0.00 - 1.00 K/uL Absolute Eosinophils 0.10 0.00 - 0.40 K/uL Absolute Basophils 0.10 0.00 - 0.10 K/uL Magnesium Result Value Ref Range MG 1.6 (L) 1.8 - 2.5 mg/dL Protime INR Result Value Ref Range PROTIME 12.8 11.3 - 13.9 seconds INR 0.97 0.90 - 1.10 POC Glucose Result Value Ref Range Glucose, POC 107 70 - 109 mg/dL POC Glucose Result Value Ref Range Glucose, POC 138 (H) 70 - 109 mg/dL Xr Chest Ap Portable Result Date: 03/18/2017 XR CHEST AP PORTABLE 03/18/2017 10:38 AM HISTORY: POST-OP PROBLEM. COMPARISON: Multiple jose luis ors. Findings: Heart size is within normal limits. Aorta is normal. Mediastinum is unremarka ble. Central pulmonary vasculature is normal. There is a small calcified granuloma in the ri ght lower midlung that is stable. The bilateral lungs are clear otherwise with no evidence f or pleural effusion or pneumothorax. Fusion hardware is in the cervical spine. There is mild spondylosis. IMPRESSION - No acute findings. Dictated and Signed by: James Newell MD Elect ronically signed: 03/18/2017 11:01 AM ASSESSMENT and PLAN: Active Hospital Problems Diagnosis *Amputation stump infection Hyponatremia Diabetes mellitus GERD (gastroesophageal reflux disease) Hypertension Depression Resolved Hospital Problems Diagnosis Date Noted Date Resolved No resolved problems to display. 1. Amputation stump infection: the stump looks better today. Continue empiric IV antimicro bial therapy with Zosyn and Vancomycin. Still waiting for the CT scan of the stump to be don e. Continue supportive therapies with IV fluids, IV and oral pain medication, and IV antibio tic was admitted therapy as needed, 2. Type II diabetes mellitus, not stated as uncontrolled: Continue current hypoglycemic re gimen and follow glucometer readings. Adjust the regimen if indicated. A1c ordered for jaime rrow. 3. Hyponatremia: improved since yesterday. Continue IV NS and follow electrolytes 4. Peripheral arterial disease: supportive therapy. Consider follow up with Vascular surge ry after discharge For further recommendations is any. Smoking cessation also advised 5. Hypertension: continue current blood pressure medications and follow BP readings 6. Stage II sacral decubitus ulcer on the right buttock: local wound care; offload sacrum q2 7. Tobacco abuse disorder: continue with daily nicotine patch; smoking cessation 8. Acute cystitis without hematuria: this is likely nosocomial since he's been hospitalize d for 3 weeks. Urine c/s are growing lactose fermenting gram negative bacilli. Will probably add Levaquin or Cipro to cover 9. VTE prophylaxis: continue SQ Lovenox daily Jj Ely 03/19/2017 13:02 [facility] obtangela, Hanh Gonzalez - 03/18/2017 2:39 PM PDT VANCOMYCIN PER PHARMACY PROTOCOL: Subjective/Objective: Valentina Bunn is a 71 y.o. male admitted on 03/18/2017 for stump infection of right AKA. Failed outpatient clindamycin therapy (03/13-) Patient is receiving vancomycin starting on 03/18/17. Patient has a past medical history of Arrhythmia; Arthritis; Carpal tunnel syn drome; Constipation, chronic; Dental caries; Depression; Diabetes mellitus (HCC); Diabetic n europathy (HCC); Epidermal cyst of face; Ganglion cyst; GERD (gastroesophageal reflux diseas e); Hyperlipidemia; Hypertension; Hypomagnesemia; Impotence; Insomnia; Neuropathy (HCC); Ronni otine dependence; Osteoarthrosis involving multiple sites; Peripheral vascular disease (HCC) ; PTSD (post-traumatic stress disorder); PTSD (post-traumatic stress disorder); Raised prost ate specific antigen; Skin ulcer (HCC); Sleep disorder; Umbilical hernia; and Urinary freque ncy. Allergies Ketamine Historical Vancomycin dosing (previous & current encounter): 1.5g in ED Admission Wt: Weight: 81.6 kg (180 lb) Current Wt: Weight: 81.6 kg (180 lb) Min/Max Temp past 24 hours:Temp Av.6 C (97.8 F) Min: 36.6 C (97.8 F) Max: 3 6.6 C (97.8 F) Estimated Creatinine Clearance: 81 mL/min (based on SCr of 0.86 mg/dL). No intake or output data in the 24 hours ending 03/18/17 1439 Temp: [36.6 C (97.8 F)] 36.6 C (97.8 F) Pulse: [83-97] 86 Resp: [20] 20 BP: (110-149)/(46-67) 149/56 Micro/Cultures/Diagnostics: Microbiology Results (Last 14 Days by Collected Date with Culture/Sensitivity) Procedure Component Value Units Date/Time Culture, Blood [[id number]] Collected: 03/18/17 1029 Order Status: Sent Lab Status: In process Updated: 03/18/17 1036 Specimen: Blood from Peripheral Blood Culture, Blood [[id number]] Collected: 03/18/17 1029 Order Status: Sent Lab Status: In process Updated: 03/18/17 1037 Specimen: Blood from Peripheral Blood Culture, Wound, Smear [[id number]] Collected: 03/18/17 1029 Order Status: Sent Lab Status: In process Updated: 03/18/17 1036 Specimen: Wound from Leg Culture, Blood [[id number]] (Normal) Collected: 03/14/17 0024 Order Status: Completed Lab Status: Preliminary result Updated: 03/18/17 1200 Specimen: Blood from Peripheral Blood Culture No growth: Monitored continually by instrument for 5 days Culture, Blood [[id number]] (Normal) Collected: 03/14/17 0001 Order Status: Completed Lab Status: Preliminary result Updated: 03/18/17 1200 Specimen: Blood from Peripheral Blood Culture No growth: Monitored continually by instrument for 5 days Culture, Wound, Smear [[id number]] (Susceptibility) Collected: 03/13/17 9446 Order Status: Completed Lab Status: Final result Updated: 03/18/17 1220 Specimen: Wound from Leg Culture 1+ Enterococcus faecalis Comment: Combination therapy of ampicillin, penicillin, or vancomycin (for susceptible st rains), plus an aminoglycoside, is usually indicated for serious enterococcal infections, barry ch as endocarditis, unless high-level resistance to both gentamicin and streptomycin is documented; such combinations are predicted to result in synergistic killin g of the enterococcus. 1+ Usual Melida Comment: Consistent with skin melida. Gram Stain Result No white blood cells (PMNs) seen No organisms seen Susceptibility Enterococcus faecalis Not Specified Ampicillin <=2 ug/mL Sensitive Penicillin G 8 ug/mL Sensitive Vancomycin 1 ug/mL Sensitive Recent Labs Lab 03/18/17 1029 03/14/17 0001 WBC 9.5 8.1 CREA 0.86 0.72 LACTATE 3.0* -- CRP -- 27.64* ESR -- 54* Imagin/26: CXR - no acute findings Date 03/18 Time of Vanco level -- Vancomycin level -- Serum Creatinine 0.86 CrCl (mL/min) 81 Vanco load/bolus 1500 mg Vanco dose - current -- Vanco dose - new 1250 mg q12hr Assessment: Vancomycin Day # 1 Other antibiotics: Zosyn Target Trough: 15-20 WBC: 8.9; Renal: 0.86; Temp: afebrile; Culture: 03/13 wound- enterococcus faecalis; woun d- pending; VS: tachypneic Renal function: stable Will use adjusted BW = 75.1 kg for vancomycin dosing Plan: 1. Vancomycin load of 1500 mg IVPB x 1 given on 03/18/17 @ 1130, followed by maintenance va ncomycin 1250 mg IVPB q12h 2. Vancomycin trough ordered for 03/19/17 @ 2230 (draw 60 minutes prior to hanging the 4th dose) 3. Serum creatinine DAILY for first 3 days, then at least every 3 days while on vancomycin. 4. Will monitor renal function, clinical status, infection markers daily with troughs and d ose adjustment as needed. References: Vancomycin dosing protocol IDSA guidelines Procalcitonin Algorithm Per P&T-approved Vancomycin Dosing and Monitoring Protocol Electronically signed by: Amirah Greene PharmNeisha 03/18/2017 14:39 documented in this encounter Plan of Treatment + +------+--------+ + + | Name | Type | Priori | Associated Diagnoses | Date/Time | | | | ty | | | + +------+--------+ + + | ED INFORMATION | VIDA | Routin | | 03/18/2017 10:06 AM | | EXCHANGE | | e | | PDT | + +------+--------+ + + documented as of this encounter Procedures + +--------+ + + + | Procedure Name | Priori | Date/Time | Associated Diagnosis | Comments | | | ty | | | | + +--------+ + + + | POC GLUCOSE | Routin | 03/20/2017 | | Results for this | | | e | 12:04 PM | | procedure are in the | | | | PDT | | results section. | + +--------+ + + + | POC GLUCOSE | Routin | 03/20/2017 | | Results for this | | | e | 6:44 AM | | procedure are in the | | | | PDT | | results section. | + +--------+ + + + | EXTRA GREEN TOP TUBE | Routin | 03/20/2017 | | Results for this | | | e | 6:07 AM | | procedure are in the | | | | PDT | | results section. | + +--------+ + + + | HEMOGLOBIN A1C | Routin | 03/20/2017 | | Results for this | | | e | 6:07 AM | | procedure are in the | | | | PDT | | results section. | + +--------+ + + + | POC GLUCOSE | Routin | 03/19/2017 | | Results for this | | | e | 9:17 PM | | procedure are in the | | | | PDT | | results section. | + +--------+ + + + | CT FEMUR THIGH RIGHT | [facility] | 03/19/2017 | | Results for this | | W CONTRAST | | 5:28 PM | | procedure are in the | | | | PDT | | results section. | + +--------+ + + + | POC GLUCOSE | Routin | 03/19/2017 | | Results for this | | | e | 4:49 PM | | procedure are in the | | | | PDT | | results section. | + +--------+ + + + | POC GLUCOSE | Routin | 03/19/2017 | | Results for this | | | e | 11:54 AM | | procedure are in the | | | | PDT | | results section. | + +--------+ + + + | POC GLUCOSE | Routin | 03/19/2017 | | Results for this | | | e | 6:20 AM | | procedure are in the | | | | PDT | | results section. | + +--------+ + + + | PROTIME INR | Routin | 03/19/2017 | | Results for this | | | e | 6:06 AM | | procedure are in the | | | | PDT | | results section. | + +--------+ + + + | CBC WITH | Routin | 03/19/2017 | | Results for this | | DIFFERENTIAL | e | 6:06 AM | | procedure are in the | | | | PDT | | results section. | + +--------+ + + + | MAGNESIUM | Routin | 03/19/2017 | | Results for this | | | e | 6:06 AM | | procedure are in the | | | | PDT | | results section. | + +--------+ + + + | BASIC METABOLIC | Routin | 03/19/2017 | | Results for this | | PANEL | e | 6:06 AM | | procedure are in the | | | | PDT | | results section. | + +--------+ + + + | POC GLUCOSE | Routin | 03/18/2017 | | Results for this | | | e | 8:05 PM | | procedure are in the | | | | PDT | | results section. | + +--------+ + + + | POC GLUCOSE | Routin | 03/18/2017 | | Results for this | | | e | 4:47 PM | | procedure are in the | | | | PDT | | results section. | + +--------+ + + + | URINALYSIS WITH | STAT | 03/18/2017 | | Results for this | | MICROSCOPIC WITH | | 1:52 PM | | procedure are in the | | CULTURE IF INDICATED | | PDT | | results section. | + +--------+ + + + | CULTURE, URINE | STAT | 03/18/2017 | | Results for this | | | | 1:52 PM | | procedure are in the | | | | PDT | | results section. | + +--------+ + + + | XR CHEST AP PORTABLE | STAT | 03/18/2017 | | Results for this | | | | 10:38 AM | | procedure are in the | | | | PDT | | results section. | + +--------+ + + + | CBC W/AUTO | STAT | 03/18/2017 | | Results for this | | DIFFERENTIAL | | 10:29 AM | | procedure are in the | | | | PDT | | results section. | + +--------+ + + + | CULTURE, WOUND, | STAT | 03/18/2017 | | Results for this | | SMEAR | | 10:29 AM | | procedure are in the | | | | PDT | | results section. | + +--------+ + + + | CULTURE, BLOOD | STAT | 03/18/2017 | | Results for this | | | | 10:29 AM | | procedure are in the | | | | PDT | | results section. | + +--------+ + + + | CULTURE, BLOOD | STAT | 03/18/2017 | | Results for this | | | | 10:29 AM | | procedure are in the | | | | PDT | | results section. | + +--------+ + + + | LACTIC ACID | STAT | 03/18/2017 | | Results for this | | | | 10:29 AM | | procedure are in the | | | | PDT | | results section. | + +--------+ + + + | BASIC METABOLIC | STAT | 03/18/2017 | | Results for this | | PANEL | | 10:29 AM | | procedure are in the | | | | PDT | | results section. | + +--------+ + + + | ED INFORMATION | Routin | 03/18/2017 | | | | EXCHANGE | e | 10:06 AM | | | | | | PDT | | | + +--------+ + + + +---+--------+ | | | | | Proced | | | ure | | | Note - | | | Deejay, | | | Lab In | | | | | | Hlseve | | | n - | | | 10/26/ | | | 2017 | | | 10:07 | | | AM PDT | | [...] | | | FICATI | | | ON?10[birth year] | | | [birth year] | | | 7 | | | 10:03? | | | CATER, | | | | | | VALENTINA | | | | | | R?MRN: | | | | | | [id number] | | | [id number] | | | his | | | [...] | | | [id number] | | | [id number] | | | [id number] | | | [...] | | | Oct | | | 26, | | | 2017 | | | Prov[facility] | | | ence | | | [facility] [place] | | | [place] | | | Emerge | | | ncy | | | Emerge | | | ncy | | | | | | Weak/P | | | ost | | | Surger | | | y Oct | | | 21, | | [...] | | | Check | | | | | | Infect | | | ion | | | follow | | | ing a | | | proced | | | ure, | | | initia | | | l | | | encoun | | | ter | | | | | | Pressu | | | re | | | ulcer | | | of | | | right | | | buttoc | | | k, | | | stage | | | 2 | | | E.D. | | | [...] 42.857 | | | | | | 2016-05 | | | 0-02 | | | HYDROC | | | ODON-A | | | CETAMI | | | NOPHN | | | 10-325 | | | 112 | | | [place] | | | H | | | KAYLYN | | | 2 40 | | | [address] | | | 8-30 | | | HYDROC | | | ODON-A | | | CETAMI | | | NOPHN | | | 10-325 | | | 112 | | | [place] | | | H | | | KAYLYN | | | 2 40 | | | 2017-0 | | | 8-07 | | | [...] | | | ? | | | 2017 | | | Collec | | | [...] documented in this encounter Results POC Glucose (03/20/2017 12:04 PM PDT) + +---------+ + + + [...] ST. | [address] | [place], [place] | [phone] | | [facility] | | [address] | | | - LABORATORY | | | | + + + + + POC Glucose (03/20/2017 6:44 AM PDT) + +---------+ + + + | Component | Value | Ref Range | Performed | Pathologist | | | | | At | Signature | + +---------+ + + + | Glucose, | 140 (H) | 70 - 109 mg/dL | [facility] | | | POC [...] + | [facility] | [address] | [place] | [phone] | | [facility] | | [address] | | | - LABORATORY | | | | + + + + + Extra Green Top Tube (03/20/2017 6:07 AM PDT) + +-------+ + + + | Component | Value | Ref Range | Performed | Pathologist | | | | | At | Signature | + +-------+ + + + | Extra Green | Done | | [facility] | | | Top Tube | | | [facility] | | [...] [address] | [place] | [phone] | | [facility] | | [address] | | | - LABORATORY | | | | + + + + + Hemoglobin A1C (03/20/2017 6:07 AM PDT) + +---------+ + + + | Component | Value | Ref Range | Performed | Pathologist | | | | | At | Signature | + +---------+ + + + | Hemoglobin | 7.6 (H) | 4.3 - 6.0 % | [facility] | | | A1c | | | [facility] | | | | | | [facility] | | | | | | CENTER - | | | | | | LABORATORY | | + +---------+ + + + | Estimated | 171 | mg/dL | [facility] | | | Average | | | [facility] | | | Glucose | | | MEDICAL | | | | | | CENTER - | | | | | | LABORATORY | | + +---------+ + + + + + | Specimen | + + | Blood | + + + + + + + | Performing | Address | City/State/[facility] | Phone Number | | Organization | | | | + + + + + | [facility] | [address] | [place] | [phone] | | [facility] | | [address] | | | - LABORATORY | | | | + + + + + POC Glucose (03/19/2017 9:17 PM PDT) + +---------+ + + + | Component | Value | Ref Range | Performed | Pathologist | | | | | At | Signature | + +---------+ + + + | Glucose, | 155 (H) | 70 - 109 mg/dL | [...] ST. | [address] | [place], [place] | [phone] | | [facility] | | [address] | | | - LABORATORY | | | | + + + + + CT Femur Thigh Right w Contrast (03/19/2017 5:28 PM PDT) + + | Specimen | + + | | + + + + + | Narrative | Performed At | + + + | EXAM: CT FEMUR THIGH RIGHT W CONTRAST dated 03/19/2017 5:26 PM | [facility] | | HISTORY: Stump infection; need to exclude an abscess COMPARISON: | | | CT angiogram dated February 02, 2017 TECHNIQUE: Post contrast | | | imaging is performed through the lower extremity following the | | | intravenous injection of 80 mL of Omnipaque 350. DOSE: DLP | | | 639.21 mGy per centimeter FINDINGS: There are abnormal | | | fluid collections.. One involves the vastus lateralis muscle. It | | | is somewhat ill-defined. There are is a small amount of internal | | | gas. This begins approximately 2 cm above the most proximal lateral | | | staple. It extends caudally to the amputation site. There is a | | | collection of fluid extending along the soft tissues distal to the | | | amputation site. This continues medially near the termination point | | | of the superficial femoral artery. This probably extends into the | | | adductor muscle. There is a small amount in the distal aspect of | | | the rectus femoris. These collections also contain a small amount | | | of gas. There is a second collection that is seen at the distal | | | aspect of the soft tissue component of the stump along the course of | | | these prashanth. This runs from medial to lateral. It also contains | | | small foci of gas. There are vascular stents in the distal aorta | | | and common iliacs. There is narrowing in the stented right common | | | iliac. There is a faint amount of contrast within the stented | | | vessel. Most of the stented vessel does not appear to be opacified. | | | There is contrast distal to the stent in the common femoral | | | artery. No visible arterial enhancement beyond the bifurcation of | | | the superficial femoral and profunda femoral arteries. There is | | | contrast within the superficial femoral vein. There are also | | | thrombi seen within the vein. The margin of the stump is sharp. | | | IMPRESSION - Findings are most suggestive of abscesses formed in | | | the soft tissues around the amputation site of the proximal femur. | | | Depending on the timing of surgery these could be noninfectious | | | fluid collections. There appear to be 2, possibly 3, different | | | abscess collections. The more proximal lateral collection is less | | | well-defined. The more inferior collections are somewhat more | | | defined and show more rim enhancement. The largest collection | | | inferiorly located measures about 9 cm longitudinally by about 3.6 mm | | | anterior to posterior. Thrombosis within the superficial femoral | | | vein to the remaining right lower extremity. Dictated and Signed | | | by: Gregory Yañez MD Electronically signed: 03/19/2017 6:10 PM | | | | | + + + + + | Procedure Note | + + | Deejay, Rad Results In - 03/19/2017 6:13 PM PDT EXAM: CT FEMUR THIGH RIGHT W CONTRAST | | dated 03/19/2017 5:26 PMHISTORY: Stump infection; need to exclude an abscessCOMPARISON: | | CT angiogram dated February 02, 2017TECHNIQUE: Post contrast imaging is performed | | through the lower extremityfollowing the intravenous injection of 80 mL of Omnipaque | | 350.DOSE: DLP 639.21 mGy per centimeterFINDINGS: There are abnormal fluid collections.. | | One involves the vastus lateralismuscle. It is somewhat ill-defined. There are is a | | small amount of internalgas. This begins approximately 2 cm above the most proximal | | lateral staple. Itextends caudally to the amputation site. There is a collection of | | fluidextending along the soft tissues distal to the amputation site. This | | continuesmedially near the termination point of the superficial femoral artery. | | Thisprobably extends into the adductor muscle. There is a small amount in thedistal | | aspect of the rectus femoris. These collections also contain a smallamount of gas. | | There is a second collection that is seen at the distal aspectof the soft tissue | | component of the stump along the course of these prashanth. This runs from medial to | | lateral. It also contains small foci of gas.There are vascular stents in the distal | | aorta and common iliacs. There isnarrowing in the stented right common iliac. There is | | a faint amount ofcontrast within the stented vessel. Most of the stented vessel does | | not appearto be opacified. There is contrast distal to the stent in the common | | femoralartery. No visible arterial enhancement beyond the bifurcation of thesuperficial | | femoral and profunda femoral arteries. There is contrast within thesuperficial femoral | | vein. There are also thrombi seen within the vein.The margin of the stump is | | sharp.IMPRESSION -Findings are most suggestive of abscesses formed in the soft tissues | | around theamputation site of the proximal femur. Depending on the timing of surgery | | thesecould be noninfectious fluid collections. There appear to be 2, possibly | | 3,different abscess collections. The more proximal lateral collection is | | lesswell-defined. The more inferior collections are somewhat more defined and showmore | | rim enhancement. The largest collection inferiorly located measures about9 cm | | longitudinally by about 3.6 mm anterior to posterior.Thrombosis within the superficial | | femoral vein to the remaining right lowerextremity.Dictated and Signed by: Gregory Reeves | | MD Pari Electronically signed: 03/19/2017 6:10 PM | |superficial femoral and profunda femoral arteries. There is contrast within the | |superficial femoral vein. There are also thrombi seen within the vein. | | | |The margin of the stump is sharp. | | | |IMPRESSION - | | | |Findings are most suggestive of abscesses formed in the soft tissues around the | |amputation site of the proximal femur. Depending on the timing of surgery these | |could be noninfectious fluid collections. There appear to be 2, possibly 3, | |different abscess collections. The more proximal lateral collection is less | |well-defined. The more inferior collections are somewhat more defined and show | |more rim enhancement. The largest collection inferiorly located measures about | |9 cm longitudinally by about 3.6 mm anterior to posterior. | | | |Thrombosis within the superficial femoral vein to the remaining right lower | |extremity. | | | |Dictated and Signed by: Gregory Yañez MD | | Electronically signed: 03/19/2017 6:10 PM | + + + +---------+ + + | Performing | Address | City/State/Zipcode | Phone Number | | Organization | | | | + +---------+ + + | [facility] | | | | + +---------+ + + POC Glucose (03/19/2017 4:49 PM PDT) + +---------+ + + + [...] [address] | [place] | [phone] | | [facility] | | [address] | | | - LABORATORY | | | | + + + + + POC Glucose (03/19/2017 11:54 AM PDT) + +---------+ + + + | Component | Value | Ref Range | Performed | Pathologist | | | | | At | Signature | + +---------+ + + + | Glucose, | 138 (H) | 70 - 109 mg/dL | [...] + | [facility] | [address] | [place] | [phone] | | [facility] | | [address] | | | - LABORATORY | | | | + + + + + POC Glucose (03/19/2017 6:20 AM PDT) + +-------+ + + + | Component | Value | Ref Range | Performed | Pathologist | | | | | At | Signature | + +-------+ + + + | Glucose, | 107 | 70 - 109 mg/dL | [facility] [...] [address] | [place] | [phone] | | [facility] | | [address] | | | - LABORATORY | | | | + + + + + Protime INR (03/19/2017 6:06 AM PDT) + + + + + + | Component | Value | Ref Range | Performed | Pathologist | | | | | At | Signature | + + + + + + | Prothrombin | 12.8 | 11.3 - 13.9 | [facility] | | | Time | | seconds | [facility] | | | | | | MEDICAL | | | | | | CENTER - | | | | | | LABORATORY | | + + + + + + | INR | 0.97Comment: Usual Oral | 0.90 - 1.10 | [facility] | | | | Anticoagulation [...] + | [facility] | [address] | [place] | [phone] | | [facility] | | [address] | | | - LABORATORY | | | | + + + + + Magnesium (03/19/2017 6:06 AM PDT) + +---------+ + + + | Component | Value | Ref Range | Performed | Pathologist | | | | | At | Signature | + +---------+ + + + | Magnesium | 1.6 (L) | 1.8 - 2.5 mg/dL | [facility] | | | | | [...] [address] | [place] | [phone] | | [facility] | | [address] | | | - LABORATORY | | | | + + + + + CBC with Differential (03/19/2017 6:06 AM PDT) + + + + + + | Component | Value | Ref Range | Performed | Pathologist | | | | | At | Signature | + + + + + + | WBC | 7.2 | 4.0 - 11.0 K/uL | [facility] | | | | | | [facility] | | | | | | MEDICAL | | | | | | CENTER - | | | | | | LABORATORY | | + + + + + + | RBC | 4.02 (L) | 4.30 - 5.70 | [facility] | | | | | M/uL | [facility] | | | | | | MEDICAL | | | | | | CENTER - | | | | | | LABORATORY | | + + + + + + | Hemoglobin | 12.5 (L) | 13.5 - 18.0 | [facility] | | | | | g/dL | [facility] | | | | | | MEDICAL | | | | | | CENTER - | | | | | | LABORATORY | | + + + + + + | Hematocrit | 37.3 (L) | 40.0 - 51.0 % | [facility] | | | | | | [facility] | | | | | | MEDICAL | | | | | | CENTER - | | | | | | LABORATORY | | + + + + + + | MCV | 92.8 | 83.0 - 101.0 fL | [facility] [...] + + + + | RDW-CV | 14.8 | <15.0 % | [facility] | | | | | | [facility] | | | | | | MEDICAL | | | | | | CENTER - | | | | | | LABORATORY | | + + + + + + | Platelet | 446 (H) | 140 - 440 K/uL | [...] + + + + | % | 60.8 | 45.0 - 82.0 % | [facility] | | | Neutrophils | | | [facility] | | | | | | MEDICAL | | | | | | CENTER - | | | | | | LABORATORY | | + + + + + + | % | 28.9 | 20.0 - 45.0 % | [facility] | | | Lymphocytes | | | [facility] | | | | | | MEDICAL | | | | | | CENTER - | | | | | | LABORATORY | | + + + + + + | % Monocytes | 7.6 | 4.0 - 12.0 % | [facility] | | | | | | [facility] | | | | | | MEDICAL | | | | | | CENTER - | | | | | | LABORATORY | | + + + + + + | % | 1.3 | 0.0 - 5.0 % | [facility] | | | Eosinophils | | | [facility] | | | | | | MEDICAL | | | | | | CENTER - | | | | | | LABORATORY | | + + + + + + | % Basophils | 1.4 (H) | 0.0 - 1.0 % | [facility] | | | | | | [facility] | | | | | | MEDICAL | | | | | | CENTER - | | | | | | LABORATORY | | + + + + + + | Absolute | 4.40 | 1.80 - 8.50 | [facility] | | | Neutrophils | | K/uL | [facility] | | | | | | MEDICAL | | | | | | CENTER - | | | | | | LABORATORY | | + + + + + + | Absolute | 2.10 | 0.60 - 3.20 | [facility] | | | Lymphocytes | | K/uL | [facility] | | | | | | MEDICAL | | | | | | CENTER - | | | | | | LABORATORY | | + + + + + + | Absolute | 0.50 | 0.00 - 1.00 | [facility] | | | Monocytes | | K/uL | [facility] | | | | | | MEDICAL | | | | | | CENTER - | | | | | | LABORATORY | | + + + + + + | Absolute | 0.10 | 0.00 - 0.40 | [facility] | [...] ST. | [address] | [place] | [phone] | | [facility] | | [address] | | | - LABORATORY | | | | + + + + + Basic Metabolic Panel (03/19/2017 6:06 AM PDT) + + + + + + | Component | Value | Ref Range | Performed | Pathologist | | | | | At | Signature | + + + + + + | Na | 133 (L) | 136 - 149 | [facility] [...] + + + + | CO2 | 22 (L) | 24 - 31 mmol/L | [...] + + + + | Glucose | 115 (H) | 70 - 109 mg/dL | [facility] | | | | | | [facility] | | | | | | MEDICAL | | | | | | CENTER - | | | | | | LABORATORY | | + + + + + + | BUN | 10 | 7 - 18 mg/dL | [facility] | | | | | | [facility] | | | | | | MEDICAL | | | | | | CENTER - | | | | | | LABORATORY | | + + + + + + | Creatinine | 0.80 | 0.60 - 1.30 | [facility] | | | | | mg/dL | [facility] | | | | | | MEDICAL | | | | | | CENTER - | | | | | | LABORATORY | | + + + + + + | eGFR if not | >60Comment: GLOMERULAR | >=60 | [facility] | | | | FILTRATION | mL/min/1.73m2 | [facility] | | | JORDANIAN | RATE,ESTIMATED | | MEDICAL | | | | mL/min/1.84c8Ghkw than | | CENTER - | | [...] + + | Calcium | 8.8 | 8.3 - 10.5 | [facility] | [...] + | [facility] | [address] | [place] | [phone] | | [facility] | | [address] | | | - LABORATORY | | | | + + + + + POC Glucose (03/18/2017 8:05 PM PDT) + +-------+ + + + | Component | Value | Ref Range | Performed | Pathologist | | | | | At | Signature | + +-------+ + + + | Glucose, | 104 | 70 - 109 mg/dL | [facility] [...] [address] | [place] | [phone] | | [facility] | | [address] | | | - LABORATORY | | | | + + + + + POC Glucose (03/18/2017 4:47 PM PDT) + +---------+ + + + | Component | Value | Ref Range | Performed | Pathologist | | | | | At | Signature | + +---------+ + + + | Glucose, | 138 (H) | 70 - 109 mg/dL | [...] [address] | [place] | [phone] | | [facility] | | [address] | | | - LABORATORY | | | | + + + + + Culture, Urine (03/18/2017 1:52 PM PDT) + + + + + + | Component | Value | Ref Range | Performed | Pathologist | | | | | At | Signature | + + + + + + | Culture | 50,000 CFU/ml | | [facility] | | | | Escherichia coli | | [facility] | | | | | | MEDICAL | | | | | | CENTER - | | | | | | LABORATORY | | + + + + + + + + | Specimen | + + | Urine - Spot urine | | sample (specimen) | + + + + +--------+ + | Organism | Antibiotic | Method | Susceptibility | + + +--------+ + | Escherichia coli | Ampicillin | | 4 ug/mL: Sensitive | + + +--------+ + | Escherichia coli | Ampicillin + | | <=2 ug/mL: | | | Sulbactam | | Sensitive | + + +--------+ + | Escherichia coli | Cefazolin | | <=4 ug/mL: | | | | | Sensitive | + + +--------+ + | Escherichia coli | Cefoxitin | | <=4 ug/mL: | | | | | Sensitive | + + +--------+ + | Escherichia coli | Ceftazidime | | <=1 ug/mL: | | | | | Sensitive | + + +--------+ + | Escherichia coli | Ceftriaxone | | <=1 ug/mL: | | | | | Sensitive | + + +--------+ + | Escherichia coli | Ciprofloxacin | | <=0.25 ug/mL: | | | | | Sensitive | + + +--------+ + | Escherichia coli | Ertapenem | | <=0.5 ug/mL: | | | | | Sensitive | + + +--------+ + | Escherichia coli | Gentamicin | | <=1 ug/mL: | | | | | Sensitive | + + +--------+ + | Escherichia coli | Meropenem | | <=0.25 ug/mL: | | | | | Sensitive | + + +--------+ + | Escherichia coli | Nitrofurantoin | | 32 ug/mL: | | | | | Sensitive | + + +--------+ + | Escherichia coli | Tobramycin | | <=1 ug/mL: | | | | | Sensitive | + + +--------+ + | Escherichia coli | Trimethoprim + | | <=20 ug/mL: | | | Sulfamethoxazole | | Sensitive | + + +--------+ + + + + + + | Performing | Address | City/State/Zipcode | Phone Number | | Organization | | | | + + + + + | [facility] | [address] | [place] | [phone] | | [facility] | | [address] | | | - LABORATORY | | | | + + + + + Urinalysis with Microscopic with Culture if Indicated (03/18/2017 1:52 PM PDT) + + + + + [...] + + + + | Clarity | Hazy (A) | Clear | [facility] | | | [...] + + + + | Specific | 1.019 | 1.001 - 1.030 | [facility] | | | [place], | | | [facility] | | | Urine | | | MEDICAL | | | | | | CENTER - | | | | | | LABORATORY | | + + + + + + | Protein, | 30 mg/dL (A) | Negative | [facility] | | [...] + + + + | Nitrite, | Positive (A) | Negative | [facility] | | [...] + + + | White Blood | 15-25 (A) | 0 - 2 /HPF | [facility] [...] + + + + | Squamous | 15-25 (A) | 0 - 2 /LPF | [facility] | | | Epithelial | | | [facility] | | | Cells, | | | MEDICAL | | | Urine | | | CENTER - | | | | | | LABORATORY | | + + + + + + | Bacteria, | 4+ (A) | Negative /HPF | [facility] | | | Urine | | | [facility] | | | | | | MEDICAL | | | | | | CENTER - | | | | | | LABORATORY | | + + + + + + | Mucus, | Present (A) | Negative /LPF | [facility] | | | Urine | | | [facility] | | | | | | MEDICAL | | | | | | CENTER - | | | | | | LABORATORY | | + + + + + + | Hyaline | 2-5 (A) | 0 - 2 /LPF | [facility] | | | [place], | | | [facility] | | | Urine | | | MEDICAL | | | | | | CENTER - | | | | | | LABORATORY | | + + + + + + | Urine | Urine Culture Set Up | | [facility] | | | Comment | | | [facility] | | | | | | MEDICAL | | | | | | CENTER - | | | | | | LABORATORY | | + + + + + + + + | Specimen | + + | Urine - Spot urine | | sample (specimen) | + + + + + + + | Performing | Address | City/State/Zipcode | Phone Number | | Organization | | | | + + + + + | [facility] | [address] | [place] | [phone] | | [facility] | | [address] | | | - LABORATORY | | | | + + + + + XR Chest AP Portable (03/18/2017 10:38 AM PDT) + + | Specimen | + + | | + + + + + | Narrative | Performed At | + + + | XR CHEST AP PORTABLE 03/18/2017 10:38 AM HISTORY: POST-OP | [facility] | | PROBLEM. COMPARISON: Multiple priors. Findings: Heart size is | | | within normal limits. Aorta is normal. Mediastinum is unremarkable. | | | Central pulmonary vasculature is normal. There is a small calcified | | | granuloma in the right lower midlung that is stable. The bilateral | | | lungs are clear otherwise with no evidence for pleural effusion or | | | pneumothorax. Fusion hardware is in the cervical spine. There is mild | | | spondylosis. IMPRESSION - No acute findings. Dictated and | | | Signed by: James Newell MD Electronically signed: 03/18/2017 11:01 | | | AM | | + + + + + | Procedure Note | + + | Deejay, Rad Results In - 03/18/2017 11:04 AM PDT XR CHEST AP PORTABLE 03/18/2017 10:38 | | AMHISTORY: POST-OP PROBLEM.COMPARISON: Multiple priors.Findings:Heart size is within | | normal limits. Aorta is normal. Mediastinum isunremarkable. Central pulmonary | | vasculature is normal. There is a smallcalcified granuloma in the right lower midlung | | that is stable. The bilaterallungs are clear otherwise with no evidence for pleural | | effusion or pneumothorax.Fusion hardware is in the cervical spine. There is mild | | spondylosis.IMPRESSION -No acute findings.Dictated and Signed by: James Newell MD | | Electronically signed: 03/18/2017 11:01 AM | |unremarkable. Central pulmonary vasculature is normal. There is a small | |calcified granuloma in the right lower midlung that is stable. The bilateral | |lungs are clear otherwise with no evidence for pleural effusion or pneumothorax. | |Fusion hardware is in the cervical spine. There is mild spondylosis. | | | |IMPRESSION - | |No acute findings. | | | |Dictated and Signed by: James Newell MD | | Electronically signed: 03/18/2017 11:01 AM | + + + +---------+ + + | Performing | Address | City/State/Zipcode | Phone Number | | Organization | | | | + +---------+ + + | [facility] | | | | + +---------+ + + Culture, Wound, Smear (03/18/2017 10:29 AM PDT) + + + + + + | Component | Value | Ref Range | Performed | Pathologist | | | | | At | Signature | + + + + + + | Culture | 2+ Mixed Gram Positive | | [facility] | | | | FloraComment: Consistent | | [facility] | | | | with skin melida. | | MEDICAL | | | | | | CENTER - | | | | | | LABORATORY | | + + + + + + | Culture | 2+ Enterococcus | | [facility] | | | | faecalisComment: | | [facility] | | | | Combination therapy of [...] + | Gram Stain | 1+ Gram positive cocci | | [facility] | [...] [address] | [place] | [phone] | | [facility] | | [address] | | | - LABORATORY | | | | + + + + + Lactic Acid (03/18/2017 10:29 AM PDT) + +---------+ + + + | Component | Value | Ref Range | Performed | Pathologist | | | | | At | Signature | + +---------+ + + + | Lactate | 3.0 (H) | 0.5 - 2.2 | [facility] | [...] ST. | [address] | [place] | [phone] | | [facility] | | [address] | | | - LABORATORY | | | | + + + + + Culture, Blood (03/18/2017 10:29 AM PDT) + + + + + [...] + | [facility] | [address] | [place] | [phone] | | [facility] | | [address] | | | - LABORATORY | | | | + + + + + Culture, Blood (03/18/2017 10:29 AM PDT) + + + + + [...] [address] | [place] | [phone] | | [facility] | | [address] | | | - LABORATORY | | | | + + + + + Basic Metabolic Panel (03/18/2017 10:29 AM PDT) + + + + + + | Component | Value | Ref Range | Performed | Pathologist | | | | | At | Signature | + + + + + + | Na | 130 (L) | 136 - 149 | [facility] | | | | | mmol/L | [facility] | | | | | | MEDICAL | | | | | | CENTER - | | | | | | LABORATORY | | + + + + + + | K | 4.6 | 3.5 - 5.1 | [facility] | | | | | mmol/L | [facility] | | | | | | MEDICAL | | | | | | CENTER - | | | | | | LABORATORY | | + + + + + + | Cl | 99 | 98 - 109 mmol/L | [facility] | | | | | | [facility] | | | | | | MEDICAL | | | | | | CENTER - | | | | | | LABORATORY | | + + + + + + | CO2 | 20 (L) | 24 - 31 mmol/L | [...] + + + + | Glucose | 166 (H) | 70 - 109 mg/dL | [facility] | | | | | | [facility] | | | | | | MEDICAL | | | | | | CENTER - | | | | | | LABORATORY | | + + + + + + | BUN | 14 | 7 - 18 mg/dL | [facility] | | | | | | [facility] | | | | | | MEDICAL | | | | | | CENTER - | | | | | | LABORATORY | | + + + + + + | Creatinine | 0.86 | 0.60 - 1.30 | [facility] | | | | | mg/dL | [facility] | | [facility] | [facility] | | | | | | C[facility] - | | | | | | LABORATORY | | + + + + + + | eGFR if not | >60Comment: GLOMERULAR | >=60 | [facility] | | | | FILTRATION | mL/min/1.73m2 | [facility] | | | JORDANIAN | RATE,ESTIMATED | | MEDICAL | | | | mL/min/1.02h0Dkdv than | | CENTER - | | [...] + + + + | Calcium | 9.9 | 8.3 - 10.5 | [facility] | | | | | mg/dL | [facility] | | | | | | MEDICAL | | | | | | CENTER - | | | | | | LABORATORY | | + + + + + + | BUN/Creatin | 16.3 | | [facility] | | | ine [...] [address] | [place] | [phone] | | [facility] | | [address] | | | - LABORATORY | | | | + + + + + CBC w/ Auto Differential (03/18/2017 10:29 AM PDT) + + + + + + | Component | Value | Ref Range | Performed | Pathologist | | | | | At | Signature | + + + + + + | WBC | 9.5 | 4.0 - 11.0 K/uL | [facility] | | | [facility] | | [facility] | [facility] | | | | | | CENTER - | | | | | | LABORATORY | | + + + + + + | RBC | 4.26 (L) | 4.30 - 5.70 | [facility] | | | | | M/uL | [facility] | | | | | | MEDICAL | | | | | | CENTER - | | | | | | LABORATORY | | + + + + + + | Hemoglobin | 13.1 (L) | 13.5 - 18.0 | [facility] [...] + + + + | MCV | 92.1 | 83.0 - 101.0 fL | [facility] | | | | | | [facility] | | | | | | MEDICAL | | | | | | CENTER - | | | | | | LABORATORY | | + + + + + + | MCH | 30.8 | 28.0 - 35.0 pg | [facility] | | | | | | [facility] | | | | | | MEDICAL | | | | | | CENTER - | | | | | | LABORATORY | | + + + + + + | MCHC | 33.4 | 32.0 - 36.0 | [facility] | | | | | g/dL | [facility] | | | | | | MEDICAL | | | | | | CENTER - | | | | | | LABORATORY | | + + + + + + | RDW-CV | 14.7 | <15.0 % | [facility] | | | | | | [facility] | | | | | | MEDICAL | | | | | | CENTER - | | | | | | LABORATORY | | + + + + + + | Platelet | 560 (H) | 140 - 440 K/uL | [...] + + + + | % | 74.8 | 45.0 - 82.0 % | [facility] [...] + + + | % Monocytes | 5.6 | 4.0 - 12.0 % | [facility] [...] + + + + | Absolute | 7.10 | 1.80 - 8.50 | [facility] | | | Neutrophils | | K/uL | [facility] | | | | | | MEDICAL | | | | | | CENTER - | | | | | | LABORATORY | | + + + + + + | Absolute | 1.70 | 0.60 - 3.20 | [facility] | | | Lymphocytes | | K/uL | 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 | + + | Type 2 diabetes mellitus with other specified complication, without long-term current | | use of insulin (HCC) | + + | Hyponatremia Hyposmolality and/or hyponatremia | + + | Gastroesophageal reflux disease, esophagitis presence not specified | + + | Essential hypertension Unspecified essential hypertension | + + | Peripheral vascular disease (HCC) Peripheral vascular disease, unspecified | + + | Smoker Tobacco use disorder | + + | Depression Depressive disorder, not elsewhere classified | + + | Hypertension Unspecified essential hypertension | + + documented in this encounter Administered Medications + +---------+ +------+-------+------+ | Medication Order | MAR | Action | Dose | Rate | Site | | | Action | Date | | | | + +---------+ +------+-------+------+ | ampicillin 2 g in sodium | New Bag | 03/20/20 | 2 g | 200 | | | chloride 0.9% 100 mL IVPB 2 g, | | 17 1:06 | | mL/hr | | | Intravenous, Administer over 30 | | PM PDT | | | | | Minutes, EVERY 6 HOURS (4 times | | | | | | | per day), First dose on Wed | | | | | | | 03/19/17 at 1800, Activate system | | | | | | | and mix before use., | | | | | | | Indications: PURULENT SKIN AND | | | | | | | SOFT TISSUE INFECTION | | | | | | + +---------+ +------+-------+------+ +---------+ +-----+-------+---+ | New Bag | 03/20/20 | 2 g | 200 | | | | 17 5:02 | | mL/hr | | | | AM PDT | | | | +---------+ +-----+-------+---+ | New Bag | 03/19/20 | 2 g | 200 | | | | 17 11:13 | | mL/hr | | | | PM PDT | | | | +---------+ +-----+-------+---+ +---+---+ | | | +---+---+ + +-------+ +--------+---+---+ | ascorbic acid (VITAMIN C) | Given | 03/20/20 | 500 mg | | | | tablet 500 mg 500 mg, Oral, | | 17 10:09 | | | | | DAILY, First dose on Wed03/18/17 | | AM PDT | | | | | at 1500 | | | | | | + +-------+ +--------+---+---+ +-------+ +--------+---+---+ | Given | 03/19/20 | 500 mg | | | | | 17 10:01 | | | | | | AM PDT | | | | +-------+ +--------+---+---+ +---+---+ | | | +---+---+ + +-------+ +-------+---+---+ | aspirin chewable tablet 81 mg | Given | 03/20/20 | 81 mg | | | | 81 mg, Oral, DAILY, First dose on | | 17 10:10 | | | | | [facility] 03/18/17 at 1500 | | AM PDT | | | | + +-------+ +-------+---+---+ +-------+ +-------+---+---+ | Given | 03/19/20 | 81 mg | | | | | 17 10:02 | | | | | | AM PDT | | | | +-------+ +-------+---+---+ +---+---+ | | | +---+---+ + +-------+ +-------+---+---+ | atorvaSTATin (LIPITOR) tablet | Given | 03/19/20 | 10 mg | | | | 10 mg 10 mg, Oral, NIGHTLY, | | 17 9:14 | | | | | First dose on [facility] 03/18/17 at | | PM PDT | | | | | 2100 | | | | | | + +-------+ +-------+---+---+ +-------+ +-------+---+---+ | Given | 03/18/20 | 10 mg | | | | | 17 8:02 | | | | | | PM PDT | | | | +-------+ +-------+---+---+ +---+---+ | | | +---+---+ + +-------+ +--------+---+---+ | celecoxib (CELEBREX) capsule | Given | 03/20/20 | 200 mg | | | | 200 mg 200 mg, Oral, 2 TIMES | | 17 10:08 | | | | | DAILY, First dose on [place] 03/18/17 | | AM PDT | | | | | at 2100, Doses > 200 mg should | | | | | | | be given with meals., | | | | | | + +-------+ +--------+---+---+ +-------+ +--------+---+---+ | Given | 03/19/20 | 200 mg | | | | | 17 9:14 | | | | | | PM PDT | | | | +-------+ +--------+---+---+ | Given | 03/19/20 | 200 mg | | | | | 17 10:03 | | | | | | AM PDT | | | | +-------+ +--------+---+---+ +---+---+ | | | +---+---+ + +-------+ +--------+---+---+ | cholecalciferol (VITAMIN D-3) | Given | 03/20/20 | 2,000 | | | | tablet 2,000 Units 2,000 Units, | | 17 10:09 | Units | | | | Oral, DAILY, First dose on [place] | | AM PDT | | | | | 03/18/17 at 1500 | | | | | | + +-------+ +--------+---+---+ +-------+ +--------+---+---+ | Given | 03/19/20 | 2,000 | | | | | 17 10:02 | Units | | | | | AM PDT | | | | +-------+ +--------+---+---+ +---+---+ | | | +---+---+ + +-------+ +-------+---+---+ | clopidogrel (PLAVIX) tablet 75 | Given | 03/20/20 | 75 mg | | | | mg 75 mg, Oral, DAILY, First | | 17 10:10 | | | | | dose on [facility] 03/18/17 at 1500 | | AM PDT | | | | + +-------+ +-------+---+---+ +-------+ +-------+---+---+ | Given | 03/19/20 | 75 mg | | | | | 17 10:01 | | | | | | AM PDT | | | | +-------+ +-------+---+---+ +---+---+ | | | +---+---+ + +-------+ +-------+---+---+ | cyclobenzaprine (FLEXERIL) | Given | 03/19/20 | 10 mg | | | | tablet 10 mg 10 mg, Oral, 3 | | 17 5:07 | | | | | TIMES DAILY PRN, Muscle spasms, | | PM PDT | | | | | Starting [facility] 03/18/17 at 1432 | | | | | | + +-------+ +-------+---+---+ +-------+ +-------+---+---+ | Given | 03/18/20 | 10 mg | | | | | 17 11:49 | | | | | | PM PDT | | | | +-------+ +-------+---+---+ | Given | 03/18/20 | 10 mg | | | | | 17 4:03 | | | | | | PM PDT | | | | +-------+ +-------+---+---+ + +---+ | | | + +---+ | dextrose 50% injection 12.5 g | | | 12.5 g, Intravenous, PRN, Low | | | Blood Sugar, Starting [place] | | | 03/18/17 at 1432 | | + +---+ | | | + +---+ + +-------+ +--------+---+---+ | docusate calcium (SURFAK) | Given | 03/20/20 | 240 mg | | | | capsule 240 mg 240 mg, Oral, 2 | | 17 10:09 | | | | | TIMES DAILY, First dose on [place] | | AM PDT | | | | | 03/18/17 at 2100 | | | | | | + +-------+ +--------+---+---+ +-------+ +--------+---+---+ | Given | 03/19/20 | 240 mg | | | | | 17 9:14 | | | | | | PM PDT | | | | +-------+ +--------+---+---+ | Given | 03/18/20 | 240 mg | | | | | 17 8:02 | | | | | | PM PDT | | | | +-------+ +--------+---+---+ +---+---+ | | | +---+---+ + +-------+ +---------+---+---+ | HYDROcodone-acetaminophen | Given | 03/20/20 | 2 | | | | (NORCO) 5-325 mg per tablet 2 | | 17 10:56 | tablets | | | | tablet 2 tablet, Oral, EVERY 6 | | AM PDT | | | | | HOURS PRN, Pain, Starting [place] | | | | | | | 03/18/17 at 1912 | | | | | | + +-------+ +---------+---+---+ +-------+ +---------+---+---+ | Given | 03/20/20 | 2 | | | | | 17 5:00 | tablets | | | | | AM PDT | | | | +-------+ +---------+---+---+ | Given | 03/19/20 | 2 | | | | | 17 9:12 | tablets | | | | | PM PDT | | | | +-------+ +---------+---+---+ +---+---+ | | | +---+---+ + +-------+ + +---+---+ | HYDROcodone-acetaminophen | Given | 03/18/20 | 1 tablet | | | | (NORCO) 7.5-325 mg per tablet 1 | | 17 3:14 | | | | | tablet 1 tablet, Oral, EVERY 6 | | PM PDT | | | | | HOURS PRN, Moderate Pain, | | | | | | | Starting [place] 03/18/17 at 1432 | | | | | | + +-------+ + +---+---+ +---+---+ | | | +---+---+ + +-------+ +--------+---+---+ | iohexol (OMNIPAQUE 350) 350 | Given | 03/19/20 | 80 mLs | | | | mg/mL injection 80 mL 80 mL, | | 17 5:29 | | | | | Intravenous, ONCE PRN, Other, for | | PM PDT | | | | | CT contrast study, Starting Fri | | | | | | | 03/19/17 at 1729, For 1 dose, | | | | | | | Radiology | | | | | | + +-------+ +--------+---+---+ +---+---+ | | | +---+---+ + +---------+ +-----+ +---+ | magnesium sulfate 2 g/50 mL | New Bag | 03/19/20 | 2 g | 25 mL/hr | | | IVPB 2 g 2 g, Intravenous, | | 17 10:18 | | | | | Administer over 120 Minutes, | | AM PDT | | | | | ONCE, 03/19/17 at 0830, For 1 | | | | | | | dose, Maximum recommended | | | | | | | infusion rate = 1 gram/hour., | | | | | | + +---------+ +-----+ +---+ +---+---+ | | | +---+---+ + +-------+ +------+---+---+ | morphine injection 4 mg 4 mg, | Given | 03/19/20 | 4 mg | | | | Intravenous, EVERY 4 HOURS PRN, | | 17 10:10 | | | | | Pain, Severe Pain, Starting [facility] | | PM PDT | | | | | 03/18/17 at 1432, Slow IV push, | | | | | | | not faster than 2 mg/minute. If | | | | | | | ineffective or not tolerated, use | | | | | | | hydromorphone IV if ordered., | | | | | | + +-------+ +------+---+---+ +-------+ +------+---+---+ | Given | 03/19/20 | 4 mg | | | | | 17 5:54 | | | | | | PM PDT | | | | +-------+ +------+---+---+ | Given | 03/19/20 | 4 mg | | | | | 17 2:07 | | | | | | PM PDT | | | | +-------+ +------+---+---+ +---+---+ | | | +---+---+ + +---------+ +---------+---+ + | nicotine (NICODERM) 21 mg/24 hr | Patch | 03/20/20 | 1 patch | | Back-Lef | | 1 patch 1 patch, Transdermal, | Applied | 17 9:56 | | | t Upper | | DAILY, First dose on [facility] 03/18/17 | | AM PDT | | | | | at 1930 | | | | | | + +---------+ +---------+---+ + + + +---------+---+ + | Patch Applied | 03/19/20 | 1 patch | | Back-Rig | | | 17 10:05 | | | ht Upper | | | AM PDT | | | | + + +---------+---+ + | Patch Applied | 03/18/20 | 1 patch | | Back-Rig | | | 17 8:01 | | | ht Upper | | | PM PDT | | | | + + +---------+---+ + +---+---+ | | | +---+---+ + +-------+ +-------+---+---+ | pantoprazole (PROTONIX) DR | Given | 03/20/20 | 40 mg | | | | tablet 40 mg 40 mg, Oral, DAILY | | 17 6:42 | | | | | BEFORE BREAKFAST, First dose on | | AM PDT | | | | | [place] 03/18/17 at 1500 | | | | | | + +-------+ +-------+---+---+ +-------+ +-------+---+---+ | Given | 03/19/20 | 40 mg | | | | | 17 6:45 | | | | | | AM PDT | | | | +-------+ +-------+---+---+ +---+---+ | | | +---+---+ + +---------+ +---------+-------+---+ | piperacillin-tazobactam (ZOSYN) | New Bag | 03/18/20 | 3.375 g | 200 | | | 3.375 g in sodium chloride 0.9% | | 17 10:39 | | mL/hr | | | 100 mL IVPB 3.375 g, | | AM PDT | | | | | Intravenous, Administer over 0.5 | | | | | | | Hours, ONCE, [facility] 03/18/17 at | | | | | | | 1015, For 1 dose, Activate system | | | | | | | and mix before use., | | | | | | | Indications: Infection | | | | | | + +---------+ +---------+-------+---+ +---+---+ | | | +---+---+ + +---------+ +---------+-------+---+ | piperacillin-tazobactam (ZOSYN) | New Bag | 03/18/20 | 3.375 g | 200 | | | 3.375 g in sodium chloride 0.9% | | 17 7:15 | | mL/hr | | | 100 mL IVPB 3.375 g, | | PM PDT | | | | | Intravenous, Administer over 0.5 | | | | | | | Hours, ONCE, [facility] 03/18/17 at | | | | | | | 1915, For 1 dose, | | | | | | | Extended-Infusion Zosyn Protocol: | | | | | | | infuse bolus over 30 minutes, | | | | | | | followed in 4 hours by | | | | | | | maintenance dosing. Activate | | | | | | | system and mix before use., | | | | | | | Indications: infection | | | | | | + +---------+ +---------+-------+---+ +---+---+ | | | +---+---+ + +---------+ +---------+ +---+ | piperacillin-tazobactam (ZOSYN) | New Bag | 03/19/20 | 3.375 g | 25 mL/hr | | | 3.375 g in sodium chloride 0.9% | | 17 3:32 | | | | | 100 mL IVPB 3.375 g, | | PM PDT | | | | | Intravenous, Administer over 4 | | | | | | | Hours, EVERY 8 HOURS INTERVAL, | | | | | | | First dose on [facility] 03/18/17 at | | | | | | | 2330, Extended-Infusion Zosyn | | | | | [...] | | | | | | Indications: infection | | | | | | + +---------+ +---------+ +---+ +---------+ +---------+ +---+ | New Bag | 03/19/20 | 3.375 g | 25 mL/hr | | | | 17 6:46 | | | | | | AM PDT | | | | +---------+ +---------+ +---+ | New Bag | 03/19/20 | 3.375 g | 25 mL/hr | | | | 17 1:34 | | | | | | AM PDT | | | | +---------+ +---------+ +---+ +---+---+ | | | +---+---+ + +---------+ +--------+-------+---+ | sodium chloride 0.9% (NS) bolus | New Bag | 03/18/20 | 1,000 | 1000 | | | 1,000 mL 1,000 mL, Intravenous, | | 17 10:39 | mLs | mL/hr | | | Administer over 1 Hours, ONCE, | | AM PDT | | | | | [facility] 03/18/17 at 1015, For 1 dose | | | | | | + +---------+ +--------+-------+---+ +---+---+ | | | +---+---+ + +---------+ +---------+ +---+ | sodium chloride 0.9% (NS) | New Bag | 03/19/20 | 500 mLs | 50 mL/hr | | | infusion at 50 mL/hr, | | 17 3:47 | | | | | Intravenous, CONTINUOUS, Starting | | PM PDT | | | | | [place] 03/18/17 at 1500 | | | | | | + +---------+ +---------+ +---+ + + +---+ +---+ | Rate/Dose Change | 03/19/20 | | 50 mL/hr | | | | 17 12:39 | | | | | | PM PDT | | | | + + +---+ +---+ | New Bag | 03/18/20 | | 100 | | | | 17 3:08 | | mL/hr | | | | PM PDT | | | | + + +---+ +---+ +---+---+ | | | +---+---+ + +-------+ +--------+---+---+ | traZODone (DESYREL) tablet 150 | Given | 03/19/20 | 150 mg | | | | mg 150 mg, Oral, NIGHTLY, First | | 17 9:13 | | | | | dose on [place] 03/18/17 at 2100 | | PM PDT | | | | + +-------+ +--------+---+---+ +-------+ +--------+---+---+ | Given | 03/18/20 | 150 mg | | | | | 17 8:02 | | | | | | PM PDT | | | | +-------+ +--------+---+---+ +---+---+ | | | +---+---+ + +---------+ + +-------+---+ | vancomycin 1,250 mg in sodium | New Bag | 03/19/20 | 1,250 mg | 175 | | | chloride 0.9% 250 mL IVPB 1,250 | | 17 12:29 | | mL/hr | | | mg, Intravenous, Administer over | | PM PDT | | | | | 90 Minutes, EVERY 12 HOURS | | | | | | | INTERVAL, First dose on Wed | | | | | | | 03/18/17 at 2330, Keep in | | | | | | | refrigerator., Indications: | | | | | | | PURULENT SKIN AND SOFT TISSUE | | | | | | | INFECTION | | | | | | + +---------+ + +-------+---+ +---------+ + +-------+---+ | New Bag | 03/18/20 | 1,250 mg | 175 | | | | 17 11:22 | | mL/hr | | | | PM PDT | | | | +---------+ + +-------+---+ +---+---+ | | | +---+---+ + +---------+ + +--------+---+ | vancomycin 1,500 mg in sodium | New Bag | 03/18/20 | 1,500 mg | 176.7 | | | chloride 0.9% 250 mL IVPB 1,500 | | 17 11:25 | | mL/hr | | | mg (rounded from 1,387.2 mg = 17 | | AM PDT | | | | | mg/kg | | | | | | | 81.6 kg), Intravenous, | | | | | | | Administer over 90 Minutes, ONCE, | | | | | | | [facility] 03/18/17 at 1030, For 1 | | | | | | | dose, Keep in refrigerator., | | | | | | | Indications: Infection | | | | | | + +---------+ + +--------+---+ +---+---+ | | | +---+---+ documented in this encounter
--- OUTSIDE RECORDS SUMMARY | ~2019-09-14 | XMS | Encounter Summary ---
Demographics + + + | Address | [address] | | | [place] [address] | + + + | Home Phone [...] [facility] | + + + | Organization [...] | | | | | [place] [address] | | + + + + + Care Team Providers + +------+ + | Care Rug Underlay Machine Operator Name | Role | Phone [...] | +--------+ + + + + | 05/27/ | Home Care | [facility] | Araseli Loredo | CASE COMMUNICATION | | 2020 | Visit | [place] [address] | [place] | | | | | [facility] [place] | | | | | | [address] | | | | | | [phone] | | | +--------+ + + + [...]
--- OUTSIDE RECORDS SUMMARY | ~2019-09-14 | XMS | Encounter Summary ---
Demographics + + + | Address | [address] | | | [place] [address] | + + + | Home Phone | | + + + | Preferred Language | Unknown | + + + | Marital Status | Single | + + + | Adventist Affiliation | Unknown | + + + | Race | Unknown | + + + | Ethnic Group | Unknown | + + + Author + + + | Author | [facility] | | | [facility] | + + + | Organization | [facility] | | [...] | | | | | [place] [address] | | + + + + + Care Team Providers + +------+ + | Care Seal Extrusion Operator Name | Role | Phone | + +------+ + PCP | Unavailable | + +------+ + Encounter Details +--------+ + + + + | Date | Type | Department | Care Team | Description | +--------+ + + + + | 05/01/ | Hospital | [facility] | | | | 2001 | Encounter | MED [facility] [address] | | | | | | [place] | | | | | | [place] [address] | | | | | | [phone] | | | +--------+ + + + [...]
--- OUTSIDE RECORDS SUMMARY | ~2019-09-14 | XMS | Encounter Summary ---
Demographics + + + | Address | [address] | | | [place] [address] | + + + | Home Phone | | + + + | Preferred Language | Unknown | + + + | Marital Status | Single | + + + | Alevism Affiliation | Unknown | + + + | Race | Unknown | + + + | Ethnic Group | Unknown | + + + Author + + + | Author | [facility] | | | and [facility] | + + + | Organization | 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
--- OUTSIDE RECORDS SUMMARY | ~2019-09-14 | XMS | Clinical Summary ---
Demographics + + + | Address | [address] | | | [place] [address] | + + + | Home Phone [...] | Author | [facility] (Historical as of | | | 01-07-19) | + + + | Organization | [facility] (Historical as of | | | 01-07-19) | + + + | Address | Unknown | + + + | Phone | Unavailable | + + + Support + + +---------+ + | Name | Relationship | Address | Phone | + + +---------+ + | Detailed,Message | ECON | Unknown | | + + +---------+ + | Val Torrez | ECON | Unknown | | + + +---------+ + | Rian Downey | ECON | Unknown | | + + +---------+ + Care Team Providers + +------+ + | Care Furnace Repair Mechanic Name | Role | Phone | + +------+ + | Debora Ruiz | PP | | | MERCHANDISING COORDINATOR | | | + +------+ + Allergies No Known Allergies Current Medications + + +-------+---------+------+------+-------+ | Prescription | Sig. | Disp. | Refills | Star | End | Statu | | | | | | t | Date | s | | | | | | Date | | | + + +-------+---------+------+------+-------+ | ascorbic acid | Take 500 mg by mouth | | | | | Activ | | (VITAMIN C) 500 MG | daily. | | | | | e | | tablet | | | | | | | + + +-------+---------+------+------+-------+ | aspirin 81 MG EC | Take 81 mg by mouth | | | | | Activ | | tablet | daily with | | | | | e | | | breakfast. | | | | | | + + +-------+---------+------+------+-------+ | buPROPion (ZYBAN) | Take 150 mg by mouth | | | | | Activ | | 150 MG 12 hr tablet | 2 (two) times | | | | | e | | | daily. | | | | | | + + +-------+---------+------+------+-------+ | Calcium | Take by mouth. | | | | | Activ | | Carb-Cholecalciferol | | | | | | e | | (CALCIUM + D3) | | | | | | | | 600-200 MG-UNIT TABS | | | | | | | + + +-------+---------+------+------+-------+ | cyanocobalamin | Take 1,000 mcg by | | | | | Activ | | (VITAMIN B-12) 1000 | mouth daily. | | | | | e | | MCG tablet | | | | | | | + + +-------+---------+------+------+-------+ | docusate sodium | Take 250 mg by mouth | | | | | Activ | | (COLACE) 250 MG | daily. | | | | | e | | capsule | | | | | | | + + +-------+---------+------+------+-------+ | [place]-3 Fatty | Take by mouth. | | | | | Activ | | Acids (FISH OIL | | | | | | e | | BURP-LESS) 1000 MG | | | | | | | | CAPS | | | | | | | + + +-------+---------+------+------+-------+ | gabapentin | Take 300 mg by mouth | | | | | Activ | | (NEURONTIN) 300 MG | 3 (three) times | | | | | e | | capsule | daily. | | | | | | + + +-------+---------+------+------+-------+ | | Take 1 tablet by | | | | | Activ | | HYDROcodone-acetamin | mouth every 6 (six) | | | | | e | | ophen (NORCO) | hours as needed for | | | | | | | 7.5-325 MG per | Pain. | | | | | | | tablet | | | | | | | + + +-------+---------+------+------+-------+ | lisinopril | Take 20 mg by mouth | | | | | Activ | | (ZESTRIL) 20 MG | daily. | | | | | e | | tablet | | | | | | | + + +-------+---------+------+------+-------+ | magnesium oxide | Take 400 mg by mouth | | | | | Activ | | (MAG-OX) 400 MG | daily. | | | | | e | | tablet | | | | | | | + + +-------+---------+------+------+-------+ | metFORMIN | Take 1,000 mg by | | | | | Activ | | (GLUMETZA) 1000 MG | mouth 2 (two) times | | | | | e | | (MOD) 24 hr tablet | daily with meals. | | | | | | + + +-------+---------+------+------+-------+ | metoprolol | Take 50 mg by mouth | | | | | Activ | | (TOPROL-XL) 50 MG 24 | daily. | | | | | e | | hr tablet | | | | | | | + + +-------+---------+------+------+-------+ | Multiple | Take 1 tablet by | | | | | Activ | | Vitamins-Minerals | mouth daily. | | | | | e | | (MULTIVITAMIN WITH | | | | | | | | MINERALS) tablet | | | | | | | + + +-------+---------+------+------+-------+ | omeprazole | Take 20 mg by mouth | | | | | Activ | | (PRILOSEC) 20 MG | every morning before | | | | | e | | capsule | breakfast. | | | | | | + + +-------+---------+------+------+-------+ | senna (SENOKOT) | Take 1 tablet by | | | | | Activ | | 8.6 MG tablet | mouth daily. | | | | | e | + + +-------+---------+------+------+-------+ | sildenafil | Take 100 mg by mouth | | | | | Activ | | (VIAGRA) 100 MG | as needed for | | | | | e | | tablet | Erectile | | | | | | | | Dysfunction. | | | | | | + + +-------+---------+------+------+-------+ | simvastatin | Take 10 mg by mouth | | | | | Activ | | (ZOCOR) 10 MG tablet | nightly. | | | | | e | + + +-------+---------+------+------+-------+ | traZODone | Take 150 mg by mouth | | | | | Activ | | (DESYREL) 150 MG | nightly. | | | | | e | | tablet | | | | | | | + + +-------+---------+------+------+-------+ | cholecalciferol | Take 1,000 Units by | | | | | Activ | | (VITAMIN D-3) 1000 | mouth daily. | | | | | e | | UNITS tablet | | | | | | | + + +-------+---------+------+------+-------+ Active Problems Not on file Social History + +-------+ +--------+------+ | Tobacco Use | Types | Packs/Day | Years | Date | | | | | Used | | + +-------+ +--------+------+ | Current Every Day | | 1 | 56 | | | Smoker | | | | | + +-------+ +--------+------+ + +---+---+---+ | Smokeless Tobacco: | | | | | Never Used | | | | + +---+---+---+ + + +---------+ + | Alcohol Use | Drinks/We | oz/Week | Comments | | | ek | | | + + +---------+ + | Yes | 14-21 | 8.4 - | | | | Cans of | 12.6 | | | | beer | | | + + +---------+ + + + + | Sex Assigned at | Date Recorded | | | | + + + | Not on file | | + + + Last Filed Vital Signs + + + + | Vital Sign | Reading | Time Taken | + + + + | Blood Pressure | - | - | + + + + | Pulse | 78 | 10/28/2015 1:11 PM PDT | + + + + | Temperature | - | - | + + + + | Respiratory Rate | - | - | + + + + | Oxygen Saturation | 96% | 10/28/2015 1:11 PM PDT | + + + + | Inhaled Oxygen | - | - | | Concentration | | | + + + + | Weight | 87.1 kg (192 lb) | 10/28/2015 1:11 PM PDT | + + + + | Height | - | - | + + + + | Body Mass Index | - | - | + + + + Plan of Treatment + + + + + | Health Maintenance | Due Date | Last Done | Comments | + + + + + | Vaccine: | | | | | Dtap/Tdap/Td (1 - | 7 | | | | Tdap) | | | | + + + + + | Vaccine: Zoster (1 | | | | | of 2) | 8 | | | + + + + + | Vaccine: | | | | | Pneumococcal 65+ | 3 | | | | Low/Medium Risk (1 | | | | | of 2 - PCV13) | | | | + + + + + | Vaccine: Influenza | | | | | (Season Ended) | 0 | | | + + + + + Results Not on filefrom Last 3 Months Insurance + +--------+ +------+ + + | Payer | Benefi | Subscriber | Type | Phone | Address | | | t Plan | ID | | | | | | / | | | | | | | Group | | | | | + +--------+ +------+ + + | [employer] | [employer] | [id number] | | [phone] [id number] | | ADMINISTRATION | [place] | | | [phone] | | | [address] | | | | [address] [place] | | | [place] | | | | [phone] | | | ON | | | | | + +--------+ +------+ + + + +--------+ +--------+ + + | Guarantor Name | Accoun | Relation to | Date | Phone | Billing Address | | | t Type | Patient | of | | | | | | | | | | + +--------+ +--------+ + + | TAYLOR MUELLER | Vetera | Self [birth year] | Home: | [address] [place] [address] | | | ns | | 1946 | [phone] | [place] [address] | | | Admini | | | [phone] | | | | strati | | | | | | | on | | | | | + +--------+ +--------+ + + | TAYLOR MUELLER | Person | Self | [birth year] | Home: | [address] [place] [address] | | | al/Fam | | 1946 | [phone] | [place] [address] | | | petr | | | [phone] | | + +--------+ +--------+ + +"
--- OUTSIDE RECORDS SUMMARY | ~2019-09-14 | XMS | Encounter Summary ---
Demographics + + + | Address | [address] | | | [place] [address] | + + + | Home Phone [...] [facility] + + + | [...] | | | | | [place] [address] | | + + + + + Care Team Providers + +------+ + | Care Director Of Channel Marketing Name | Role | Phone | + +------+ + | Rebecca Millard NP | PCP | | + +------+ + Reason for Visit + + + | Reason | Comments | + + + | Initial Assessment | | + + + Evaluate & [...] | n | Acquired | Doctor | [place] | | | | | absence of | Phone: | Therapy [address] | | | | | left leg | | [address] | | | | | above knee | Fax: | [place], | | | | | ([facility]) | | [place] [address] | | | | | Abnormality | | Phone: | | | | | of gait | | [phone] | | | | | Procedures | | Fax: | | | | | Pt eval | | [phone] | | | | | -gait | | | +--------+--------+ + + + + Encounter Details +--------+---------+ + + + | Date | Type | Department | Care Team | Description | +--------+---------+ + + + | 11/28/ | Office | [facility] | Carol Ann Medrano, | Status post above | | 2019 | Visit | [facility] | PT [address] | knee amputation of | | | | [address] | [place] | right lower | | | | [place] | [id number] | extremity (HCC) | | | | [address] | | (Primary Dx); | | | | [phone] | | Abnormality of gait | | | | | | and mobility; Other | | | | | | chronic pain; | | | | | | Chronic pain of both | | | | | | shoulders; | | | | | | Decreased activities | | | | | | of daily living | | | | | | (ADL); Depression, | | | | | | unspecified | | | | | | depression type; | | | | | | Type 2 diabetes | | | | | | mellitus with other | | | | | | specified | | | | | | complication, | | | | | | without long-term | | | | | | current use of | | | | | | insulin (HCC); H/O | | | | | | neck surgery; | | | | | | Impaired mobility | | | | | | and ADLs; Peripheral | | | | | | vascular disease | | | | | | (HCC); PTSD | | | | | | (post-traumatic | | | | | | stress disorder); | | | | | | Requires assistance | | | | | | with activities of | | | | | | daily living (ADL) | +--------+---------+ + + + Social History [...] documented as of this encounter Progress Notes Carol Ann Medrano, PT - 11/28/2018 11:00 AM PDTFormatting of this note might be different fro m the original. [facility] [address] [place] [address] Physical Therapy Initial Assessment Date: 11/28/2018 Patient Information Patient Name: Paul Bunn Date of : 1945 Age: 73 y.o. History No problems updated. Mechanism of injury: R AKA 01/2017 History of symptoms: Paul reports that he underwent an AKA after developing a wound at th e end of his BKA residual limb that became infected. He participated in inpatient rehab at a [facility], from 08/30/2018 to 09/15/18 for prosthesis training and learning floor t ransfers. He reports that he can get off of the floor, with difficulty, with the use of sta ble object, following several tries, independently- and has done so twice since he has been home from the hospital. He reports an estimated 6 falls in the last year, typically while h e is transferring and forgets to set his brakes. He uses his wheelchair all of the time at home and is unable to walk independently. His daughter provides care giving assistance and he can walk with her holding his gait belt, if he uses a walker and takes frequent rest jack ks. A recent modification was made to his prosthesis to accommodate his hip flexor contract ure. His daughter knows how to help him stretch his hip and he sometimes lies on his belly to stretch his hip but not regularly as it is not comfortable. His hip has tightened up sin ce he was discharged - such that he has required modification to his prosthesis and is unabl e to take a long step. He requires assistance with bathing/ showers and is unable to naviga te steps. Previous level of function and limitations: within the last month he has been able to walk at the park, with his daughter holding his gait belt/ with a walker/ up to 1/8 mile at a tadeo e- he requires seated rest breaks due to fatigue- primarily of the L calf, During rehab he was able to walk with his prosthesis without the modification bracket to accommodate his hip tightness, prior to the AKA he was ambulatory without an AD- enjoyed fishing and hunting Work status:Off work Living situation: Lives in [place], [place], daughter visits and assists with care frequently, pr ovides transport Social History Socioeconomic History Marital status: Single Spouse name: Not on file Number of children: Not on file Years of education: Not on file Highest education level: Not on file Tobacco Use Smoking status: Current Every Day Smoker Packs/day: 1.00 Types: Cigarettes Smokeless tobacco: Never Used Substance and Sexual Activity Alcohol use: Yes Comment: 4 times/week Drug use: Yes Frequency: 1.0 times per week Types: Marijuana Encounter Diagnoses Code Name Primary? 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) Yes R26.9 Abnormality of gait and mobility G89.29 Other chronic pain M25.511, G89.29, M25.512 Chronic pain of both shoulders R68.89 Decreased activities of daily living (ADL) F32.9 Depression, unspecified depression type E11.69 Type 2 diabetes mellitus with other specified complication, without long-term cu rrent use of insulin (HCC) Z98.890 H/O neck surgery Z74.09 Impaired mobility and ADLs I73.9 Peripheral vascular disease (HCC) F43.10 PTSD (post-traumatic stress disorder) Z74.1 Requires assistance with activities of daily living (ADL) Date of Onset: 10/21/2018 Referring Provider: Sabino Corado MD No history on file. Past Medical History: Diagnosis Date Arrhythmia Arthritis Carpal tunnel syndrome Constipation, chronic Dental caries Depression Diabetes mellitus (HCC) Diabetic neuropathy (HCC) Epidermal cyst of face Ganglion cyst GERD (gastroesophageal reflux disease) Hyperlipidemia Hypertension Hypomagnesemia Impotence Insomnia Neuropathy Nicotine dependence Osteoarthrosis involving multiple sites Peripheral vascular disease (HCC) PTSD (post-traumatic stress disorder) PTSD (post-traumatic stress disorder) Raised prostate specific antigen Skin ulcer (HCC) Sleep disorder Umbilical hernia Urinary frequency Past Surgical History: Procedure Laterality Date CERVICAL SPINE SURGERY x4 CHOLECYSTECTOMY, LAPAROSCOPIC 11/30/2013 lap panda, lap appy, lysis of adhesions, repair small bowel; Laterality: N/A; Surgeon: Neisha Mcconnell MD; Location: [facility] MAIN OR LEG AMPUTATION AT HIP Right 01/2017 LEG AMPUTATION BELOW KNEE 2011 LEG SURGERY 1968 multiple bilateral leg surgeries TOE AMPUTATION great toe History reviewed. No pertinent family history. Developmental History Allergies Allergen Reactions Ketamine Other (See Comments) agitation Prior Treatment: None within the last sixty days Rehab Precautions Office Visit from 11/28/2018 in [facility] Rehab Precautions Precautions ARTF Precautions Comments L eye blind Learning Style Patient's Optimum Learning Style: performance of task, listening Abuse Assessment Do you feel safe in your current relationship or home?: Yes Action taken by clinician: No concerns Pain Assessment: Location: 10/31, L lower leg, neck pain EVALUATION: SUBJECTIVE: History of Presenting Problem: Paul Bunn is a 73 y.o. male who presents to therapy s/p AKA,in need of gait and balance training with his prosthesis. Daughter repor ts some recent regression of his hip ROM/ flexibility. Functional Limitations: unable to straighten R hip, requires close range squat pivot transf er/ multiple falls during transfers in last year, Requires assistance with bathing and with standing or walking, walking stamina limited to 1/8 mile or less with assistance per family report, Fatigue at 32 ft in clinic, inefficient. Compensated gait, heavy WB L LE- unable t o take full length step with L LE, prone tolerance limited to a minute or less, Requires as sistance to stretch R hip to end range, bilateral shoulder pain- requires multiple attempt s and a stable object to rise from floor, unable to navigate stairs Precaution/special problems: blind in L eye, HTN, ARTF Patient s Goals: to improve his balance, be able to take some steps with a cane, to stret ch out R hip, to be able to hernández or fish again OBJECTIVE: Observation/Posture/Alignment: leaned forward over R leg seated in WC, frequent weightshift s/leaning onto arm rests or lap, forward head and shoulders, R residual limb positioned in f lexion and abduction, unable to rest residual limb on bed/ mat supine Gait: In parallel bars, fatigue at 32 ft, contact guard assist with heavy bilateral UE us e, Decreased step length L, Requires knee locked on prosthetic leg- hip hike to clear R fo ot/ prosthesis in late stance, short guarded steps, heavy WB and lean to L Functional Movements: Sit<>Stand: Holding stable object with two hands, heavy use L LE Sit<>Supine: Increased time, fatigue Double leg squat: Unable, requires prosthetic knee locked for stabililty Toe Walking: unable Heel Walking: u unable Balance: Sitting- good, standing poor ROM: UE: WNL- arthritic changes in hands LE: WNL with exception of L knee lacks 5 degrees of extension, L ankle dorsiflexion to 5 degrees, popliteal angle 36 degrees from neutral R hip extension -38------ lacks 38 degrees to neutral, R hip adduction to 0 Strength: UE: R shoulder 4/5, L shoulder 4+/5 LE: L hip 4-/5, L knee 4/5, L ankle dorsiflexion 4-/5, L ankle plantarflexion 2/5, R hip flexion 3-/5, R hip abduction 3-/5, hip extension 3+/5 Neurovascular: Absent light touch L foot/ distal LE Outcome Measure: Patient was tested with the ABC. With a score of 8/100 Standardized Tests: The Activities-specific Balance Confidence (ABC) Scale 1. walk around the house?: 0 2. walk up or down the stairs?: 0 3. bend over and flower buncher or picker a slipper from the front of a closet floor?: 0 4. reach for a small can off a shelf at eye level?: 100 5. stand on your tip toes and reach for something above your head?: 0 6. stand on a chair and reach for something?: 0 7. sweep the floor?: 0 8. walk outside the house to a car parked in the driveway?: 0 9. get into and out of a car?: 30 10. walk across a parking lot to the mall?: 0 11. walk up or down a ramp?: 0 12. walk in a crowded mall where people rapidly walk past you?: 0 13. are bumped into by people as you walk through the mall?: 0 14. step onto or off of an escalator while you are holding onto a railing?: 0 15. step onto or off an escalator while holding onto parcels such that you cannot hold onto the railing?: 0 16. walk outside on icy sidewalks?: 0 ABC Scale Score (Calculated): 8.12 ABC Scale Score: 8 Activity-Specific Balance Confidence Goal: 40 Activity-Specific Balance Confidence Status: 8 Assessment Patient presents to physical therapy with R AKA, gait dysfunction. Objective exam reveals i mpairments with R hip ROM- R hip flexor contracture, glut and abductor weakness, impaired st anding balance, absent light touch distal L LE, impaired stamina/ endurance. These impairmen ts are causing functional limitations with transfers between surfaces and to standing- requi res adapted prosthetic to accomodate hip flexor contracture, requires locked knee position o n prosthetic for stability in standing/ gait trials which are restricting this patient s a bility to participate in household and community gait, floor/ household transfers, requires assistance for ADLS / bathing, home cleaning and shopping, unable to ambulate independently in home or community/ requires use of WC for all independent mobility currently. Signs and s ymptoms are consistent with R hip flexor contracture post AKA, deconditioning, neuropathy L LE with impact on strength/ sensation/ balance. Complexities contributing to frequency and duration of therapy: vision impairment, distance lived from facility, dependent on daughter for transport, impaired respiratory reserve. Rehabilitation potential: Patient demonstrates good potential to achieve established goals to address the documented impairments by participating in skilled physical therapy services. Goals: Patient Reported Outcome Goals Activity-Specific Balance Confidence Goal: 40 Activity-Specific Balance Confidence Status: 8 OP PT Goals OP PT Goals: Goal 1, Goal 2, Goal 3 Goal 1: Improved functional LE strength and [...] his daughter to stretch his hip otherwise. Plan Date of Onset: 10/21/2018 Start of Care Date: 11/28/2018 Requested # of Visits: 12 visits 1x/week for 12 weeks Certification From: 11/28/2018 Certification To: 02/22/2019 Treatment Plan/Interventions PT [id number] - Orthotic/Prosthetic [id number] - Prosthetic [id number] - Therape uti [id number] - Gait [id number] - Therapeutic [id number] - Manual [id number] - Self Care/Home Management Patient and/or family has indicated understanding of treatment needs and actively participa tj in the creation of this plan for care. Today's Treatment Start Time: 1102 Stop time: 1220 Duration: 78 minutes Timed Treatment Codes: 25 minutes # of PT Visits: 1 Objective: Education of rehab timeline, focus and expectations. Education of pain modulation with use of ice/MHP, positioning, pacing and movement strategies for self care. sidelying and prone hip flexor stretching Education on same Assistance to stabilize pelvis required sidelying active hip extension/ attempts to touch wall behind him with residual limb Education re: HEP intiated gait and transfer training Next Visit: hip flexor stretching, hip extensor and abduction strengthening, core and postu ral strengthening, standing balance and stamina, gait and prosthetic training, collaboration with professor of physics Electronically signed by: Carol Ann Medrano PT, 11/29/2018 18:25 Patient Name: Paul Bunn/: 1945/ documented in this en counter Plan of Treatment Not on filedocumented as of this encounter Visit Diagnoses + + | Diagnosis | + + | Status post above knee amputation of right lower extremity - Primary | + + | Abnormality of gait and mobility Abnormality of gait | + + | Other chronic pain | + + | Chronic pain of both shoulders Pain in joint, shoulder region | + + | Decreased activities of daily living (ADL) | + + | Depression, unspecified depression type | + + | Type 2 diabetes mellitus with other specified complication, without long-term current | | use of insulin (HCC) | + + | H/O neck surgery Personal history of surgery to other organs | + + | Impaired mobility and ADLs Mechanical problems with limbs | + + | Peripheral vascular disease (HCC) Peripheral vascular disease, unspecified | + + | PTSD (post-traumatic stress disorder) Posttraumatic stress disorder | + + | Requires assistance with activities of daily living (ADL) | + + documented in this encounter"
--- OUTSIDE RECORDS SUMMARY | ~2019-09-14 | XMS | Encounter Summary ---
Demographics + + + | Address | [address] | | | [place] [address] | + + + | Home Phone | | + + + | Preferred Language | Unknown | + + + | Marital Status | Single | + + + | Hindu Affiliation | Unknown | + + + | Race | Unknown | + + + | Ethnic Group | Unknown | + + + Author + + + | Author | [facility] | | [facility] | + + + | Organization | [facility] | | [...] | | | | | [place] [address] | | + + + + + Care Team Providers + +------+ + | Care Solar Crew Member Name | Role | Phone | + +------+ + | Debora Butts | PCP | | + +------+ + Encounter Details +--------+ + + + + | Date | Type | Department | Care Team | Description | +--------+ + + + + | 11/06/ | Hospital | [facility] | Conversion | Pain | | 2016 | Encounter | CONVERSION DEP [address] | Transaction, | | | | | [place] [place] | Provider Unknown | | | | | [place] | [phone] | | | | | [address] | | | | | | [phone] | | | +--------+ + + + [...] + +--------+ + + + | VAS CAROTID DUPLEX | Routin | 09/12/2015 | | Results for this | | BILATERAL | e | 2:21 PM | | procedure are in the | | | | PDT | | results section. | + +--------+ + + + documented in this encounter Results VAS Carotid Duplex Bilateral (09/12/2015 2:21 PM PDT) + + | Specimen | [...]
--- OUTSIDE RECORDS SUMMARY | ~2019-09-14 | XMS | Encounter Summary ---
Demographics + + + | Address | [address] | | | [place] [address] | + + + | Home Phone [...] + + + | Author | [facility] | | | and [facility] | + + + | Organization | [facility] | | [...] | | | | | [place] [address] | | + + + + + Care Team Providers + +------+ + | Care Investigative Assistant Name | Role | Phone | + [...] | +--------+ + + + + | 06/07/ | Home Care | [facility] [place] | Bre Irvin RN | SN REPEAT VISIT | | 2019 | Visit | [place] [address] | | | | | | [place] | | | | | | [address] | | | | | | [phone] | | | +--------+ + + + [...] + + + | Blood Pressure | 120/68 | 06/07/2019 10:18 AM | | | | | PST | | + + + + + | Pulse | 96 | 06/07/2019 10:18 AM | | | | | PST | | + + + + + | Temperature | 36.1 C (96.9 F) | 06/07/2019 10:18 AM | | | | | PST | | + + + + + | Respiratory Rate | 16 | 06/07/2019 10:18 AM | | | | | PST | | + + + + + | Oxygen Saturation | 98% | 06/07/2019 10:18 AM | | | | | PST [...] - REPEAT VISIT | | Discipline - Mcc | + + + + +--------+--------+ + + | Problem | Description | Start | Status | Goals | Interventio | | | | Date | | | ns | + + +--------+--------+ + + | Central/Midline IV | PICC right upper | | | - | 4 problem | | Disciplines: | arm | 05/09/ | Active | | | | [facility] | | 2018 | | | interventio [...] | | scheduled/d | n | | Mcc | | | | ocumented | scheduled/d [...] 05/09/ | Active | | | | [facility] | | 2018 | | | interventio [...] foot I&D | | | - | 1 problem | | 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 | 05/09/ | Active | | | | [facility] | | 2018 | | | interventio [...] | | | | n | | M[facility], | | | | | scheduled/d | | Incubator Tender | | | | | ocumented | [...] | | | | | | from [facility] site. | | | | | + + +--------+--------+ + | Instruct in | Problem: | | | Instructed the patient | | administration of IV | Central/Midline IV | Comple | | in administration of IV | | solutions/meds per | | tj | | | | MD order | | | [...] via | | | | administration of abx: | | PICC daily until | | [...] IV | Comple | | changed per [facility] | | Transparent and | | [...] | | | Next lab draw due | | Flash also. | | | | 06-12-19. | | [phone] | | | | | | Calvin / ASIF ICD10 | | | | | | code: I96 and | | | | | | M86.9 | | | | | + + +--------+--------+ + | Diabetic Foot | Problem: SHARED | | | | | Assessment | DIABETIC FOOT | Comple | | | | Description: | CAREGoal: SN | tj | | | | Assess lower | ALTERATION IN | | | | | extremities for | COMFORT | | | | | lesions/skin | | | | | | integrity, instruct | | | [...] Surgical | | | | | Description: Wound | Wound | [...]
--- OUTSIDE RECORDS SUMMARY | ~2019-09-14 | XMS | Encounter Summary ---
Demographics + + + | Address | [address] | | | [place] [address] | + + + | Home Phone | | + + + | Preferred Language | Unknown | + + + | Marital Status | Single | + + + | Muslim Affiliation | Unknown | + + + | Race | Unknown | + + + | Ethnic Group | Unknown | + + + Author + + + | Author | [facility] | | | and [facility] | + + + | Organization | [facility] | | | [...] | | | | | [place] [address] | | + + + + + Care Team Providers + +------+ + | Care Certified Adaptive Physical Educator Name | Role | Phone | + +------+ + | Rebecca Millard NP | PCP | | + +------+ + Reason for Visit + + + | Reason | Comments | + + + | Missed Visit | | + + + Encounter Details +--------+ + + + + | Date | Type | Department | Care Team | Description | +--------+ + + + + | 12/28/ | [facility] | [facility] | Jasmyn Chávez, | Missed Visit | | 2019 | | [facility] | [employer] [address] | | | | | [address] | [place] | | | | | [place] | [address] | | | | | [address] | [phone] | | | | | [phone] | | | +--------+ + + + [...]
--- OUTSIDE RECORDS SUMMARY | ~2019-09-14 | XMS | Encounter Summary ---
Demographics + + + | Address | [address] | | | [place] [address] | + + + | Home Phone | | + + + | Preferred Language | Unknown | + + + | Marital Status | Single | + + + | [employer] Affiliation | Unknown | + + + [...] | | | | | [place] [address] | | + + + + + Care Team Providers + +------+ + | Care Accountancy Professor Name | Role | Phone | + [...] | +--------+ + + + + | 05/12/ | Home Care | [facility] [place] | Bre Irvin RN | CASE COMMUNICATION | | 2019 | Visit | [facility] [address] | | | | | | [place], [place] | | | | | | [address] | | | | | | [phone] | | | +--------+ + + + [...]
--- OUTSIDE RECORDS SUMMARY | ~2019-09-14 | XMS | Encounter Summary ---
Demographics + + + | Address | [address] | | | [place] [address] | + + + | Home Phone | | + + + | Preferred Language | Unknown | + + + | Marital Status | Single | + + + | Mandaen Affiliation | Unknown | + + + | Race | Unknown | + + + | Ethnic Group | Unknown | + + + Author + + + | Author | [facility] | | | and [facility] | + + + | Organization | [facility] | | [...] | | | | | [place] [address] | | + + + + + Care Team Providers + +------+ + | Care Core Extruder Name | Role | Phone | + +------+ + | Debora Butts | PCP | | + +------+ + Reason for Visit + + + | Reason | Comments | + + + | Follow-up | Epidermal cyst | + + + Evaluate & Treat (Routine) +--------+--------+ + + + + | Status | Reason | Specialty | Diagnoses / | Referred By | Referred To | | | | | Procedures | Contact | Contact | +--------+--------+ + + + + | Closed | | General | Diagnoses | | Xiomara, | | | | Surgery | Epidermal | [place] | Jb Perez MD, | | | | | cyst cyst | , Debora, | FACS [address] | | | | | right | [employer] [address] | | | | | eyebrow | [place] | [place], | | | | | Procedures | Drive [place] | [place] [address] | | | | | [place] OFFICE | [facility], [place] | Phone: | | | | | OUTPATIENT | [address] | [phone] | | | | | [address] | Phone: | Fax: | | | | | [employer] | [phone] | [phone] | | | | | | Fax: | | | | | | | [phone] | | +--------+--------+ + + + + Encounter Details +--------+---------+ + + + | Date | Type | Department | Care Team | Description | +--------+---------+ + + + | 07/23/ | Office | [facility] | Jb Solano, | Epidermal cyst | | 2016 | Visit | SURGERY [address] | [address] | (Primary Dx) | | | | [place], [place] | [place], [place] | | | | | [address] | [address] | | | | | [phone] | | | +--------+---------+ + + + [...] + + + | Blood Pressure | 124/72 | 07/24/2015 1:26 PM | | | | | PST | | + + + + + | Pulse | 71 | 07/24/2015 1:26 PM | | | | | PST | | + + + + + | Temperature | 36.2 C (97.1 F) | 07/24/2015 1:26 PM | | | | | PST | | + + + + + | Respiratory Rate | 18 | 07/24/2015 1:26 PM | | | | | PST | | + + + + + | Oxygen Saturation | 95% | 07/24/2015 1:26 PM | | | | | PST | | + + + + + | Inhaled Oxygen | - | - | | | Concentration | | | | + + + + + | Weight | 84.8 kg (187 lb) | 07/24/2015 1:26 PM | | | | | PST | | + + + + + | Height | 172.7 cm (5' 8") | 07/24/2015 1:26 PM | | | | | PST | | + + + + + | Body Mass Index | 28.43 | 07/24/2015 1:26 PM | | | | | PST | | + + + + + documented in this encounter Progress Notes Jb Solano MD - 07/24/2015 1:44 PM PSTPatient was referred for a epidermal i nclusion cyst. Unfortunately, this is involving the right upper eyelid. This is beyond the scope of our general surgical practice and [facility]. As his needs fall outside of our scope of practice , he was not seen as a patient visit and will not be charged. documented in this encounter Plan of Treatment Not on filedocumented as of this encounter Visit Diagnoses + + | Diagnosis | + + | Epidermal cyst - Primary Sebaceous cyst | + + documented in this encounter
--- OUTSIDE RECORDS SUMMARY | ~2019-09-14 | XMS | Encounter Summary ---
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 final radiograph shows the PICC | | | line tip appropriately positioned at the cavoatrial junction. The | | | lungs are symmetrically aerated and clear. No pneumothorax. No large | | | pleural effusions. Cardiac and mediastinal contours are not | | | enlarged. Incompletely evaluated anterior and posterior | | | instrumentation of the lower cervical spine. | | | IMPRESSION: 1. RIGHT APPROACH PICC LINE TIP APPROPRIATELY | | | POSITIONED AND READY FOR USE. NOTE: THIS WAS CONVEYED | | | TO TATIANA THE NURSE PERFORMING THE PICC PROCEDURE. Dictated | | | Date/Time: 06/09/2012 14:09 Transcribed Date/Time: | | | 06/09/2012 14:19 Rotary Planer Set Up Operator: | | | <<Signature on File>> | | | Gregory | | | Leandro Yañez MD06/10/12 8812 <Electronically signed by Gregory Reeves | | | Pari PAULINO> Gregory Yañez MD 06/09/12 1446 | | | Rotary Planer Set Up Operator: [id number]/17/13 1419 | | | | | + + + + + + + + | Performing | Address | City/State/Zipcode | Phone Number | | Organization | | | | + + + + + | [facility] | [address] | [place], [place] | [phone] | | [facility] | | [address] | | | - IMAGING | | | | + + + + + VAS Ankle Brachial Index Resting (06/09/2012 10:33 AM PST) + + | Specimen | + + | | + + + + + | Narrative | Performed At | + + + | [facility] Diagnostic Imaging | SHOCK | | Department [address] [place] [address] | [facility] | | [ rep ct street1+2] [ rep [facility] | | [facility]] Signed | - IMAGING | | | | | Patient Name: VALENTINA MUELLER Physician: | | | HEND.01 : 1945 Age: 66 Sex: M Unit #: [id number] | | | Exam Date: 06/08/12 Location: [address] [place] [address] | | | Report #: [id number] Page: | | | %(RAD)RES..mtdd.print.filter("pg") of %(RAD) | | | RES..mtdd.print.filter("tpg") | | | | | | Accession Number: [id number] | | | ULTRASOUND ANKLE-BRACHIAL INDICES: 06/08/2012 CLINICAL | | | HISTORY: ULCER ON RIGHT FOOT. HISTORY OF RIGHT LEG BYPASS. | | | FINDINGS: RIGHT: Brachial pressure 170 mmHg. Ankle | | | pressure 98 mmHg. A/B ratio: 0.576. LEFT: Brachial | | | pressure 150 mmHg. Ankle 110 mmHg. A/B ratio: 0.647. | | | IMPRESSION: BILATERAL ABNORMAL ANKLE-BRACHIAL INDICES WITH FINDINGS ON | | | THE RIGHT AND LEFT BORDERLINE SUGGESTING MULTISEGMENT DISEASE, MORE | | | SIGNIFICANT ON THE RIGHT. COMMENT: Report was provided | | | to Dr. Akbar at 6:00 p.m. on the day of the exam. | | | Dictated Date/Time: 06/09/2012 10:33 Transcribed Date/Time: | | | 06/09/2012 10:38 Rotary Planer Set Up Operator: | | | <<Signature on File>> | | | Gregory | | | Leandro Yañez MD06/09/12 2016 <Electronically signed by Gregory Reeves | | | Pari PAULINO> Gregory Yañez MD 06/09/12 1033 | | | Rotary Planer Set Up Operator: [id number]/17/13 1038 | | | | | + + + + + + + + | Performing | Address | City/State/Zipcode | Phone Number | | Organization | | | | + + + + + | [facility] | [address] | [place] | [phone] | | [facility] | | [address] | | | - IMAGING | | | | + + + + + CBC with Differential (06/09/2012 6:23 AM PST) + + + + + + | Component | Value | Ref Range | Performed | Pathologist | | | | | At | Signature | + + + + + + | MANUAL | NO | | [facility] | | | [facility] | | | [facility] | | | L ? | | | MEDICAL | | | | | | CENTER - | | | | | | LABORATORY | | + + + + + + | WBC | 7.1 (A) | 4.0 - 11.0 K/uL | [facility] | | | | | | [facility] | | | | | | MEDICAL | | | | | | CENTER - | | | | | | LABORATORY | | + + + + + + | RBC | 4.46 | 4.30 - 5.70 | [facility] | | | | | M/uL | [facility] | | | | | | MEDICAL | | | | | | CENTER - | | | | | | LABORATORY | | + + + + + + | Hemoglobin | 14.6 (A) | 13.5 - 18.0 | [facility] | | | | | gm/dL | [facility] | | | | | | MEDICAL | | | | | | CENTER - | | | | | | LABORATORY | | + + + + + + | Hematocrit | 43.3 (A) | 40.0 - 51.0 % | [facility] | | | | | | [facility] | | | | | | MEDICAL | | | | | | CENTER - | | | | | | LABORATORY | | + + + + + + | MCV | 97.0 | 83.0 - 101.0 fL | [facility] | | | | | | [facility] | | | | | | MEDICAL | | | | | | CENTER - | | | | | | LABORATORY | | + + + + + + | MCH | 32.7 | 28.0 - 35.0 pg | [facility] [...] + + + + | RDW-CV | 13.2 | <15.0 % | [facility] | | | | | | [facility] | | | | | | MEDICAL | | | | | | CENTER - | | | | | | LABORATORY | | + + + + + + | Platelet | 240 (A) | 140 - 440 K/uL | [facility] | | | Count | | | [facility] | | | | | | MEDICAL | | | | | | CENTER - | | | | | | LABORATORY | | + + + + + + | % | 72.9 | 45 - 75 % | [facility] | | | Neutrophils | | | [facility] | | | | | | MEDICAL | | | | | | CENTER - | | | | | | LABORATORY | | + + + + + + | % | 17.3 (L) | 20 - 45 % | [facility] | | | Lymphocytes | | | [facility] | | | | | | MEDICAL | | | | | | CENTER - | | | | | | LABORATORY | | + + + + + + | % Monocytes | 8.0 | 4 - 12 % | [facility] | | | | | | [facility] | | | | | | MEDICAL | | | | | | CENTER - | | | | | | LABORATORY | | + + + + + + | % | 0.8 | 0 - 5 % | [facility] | | | Eosinophils | | | [facility] | | | | | | MEDICAL | | | | | | CENTER - | | | | | | LABORATORY | | + + + + + + | % Basophils | 1.0 | 0 - 1 % | [facility] | | | | | | [facility] | | | | | | MEDICAL | | | | | | CENTER - | | | | | | LABORATORY | | + + + + + + | Absolute | 5.2 | 1.5 - 6.6 K/uL | [facility] | | | Neutrophils | | | [facility] | | | | | | MEDICAL | | | | | | CENTER - | | | | | | LABORATORY | | + + + + + + | Absolute | 1.2 | 0.6 - 3.2 K/uL | [facility] | | | Lymphocytes | | | [facility] | | | | | | MEDICAL | | | | | | CENTER - | | | | | | LABORATORY | | + + + + + + | Absolute | 0.6 | 0.0 - 1.0 K/uL | [facility] | | | Monocytes | | | [facility] | | | | | | MEDICAL | | | | | | CENTER - | | | | | | LABORATORY | | + + + + + + | Absolute | 0.1 | 0.0 - 0.4 K/uL | [facility] | | | Eosinophils | | | [facility] | | | | | | MEDICAL | | | | | | CENTER - | | | | | | LABORATORY | | + + + + + + | Absolute | 0.1 | 0.0 - 0.1 K/uL | [facility] | | | Basophils | | | [facility] | | [...] + | [facility] | [address] | [place], [place] | [phone] | | [facility] | | [address] | | | - LABORATORY | | | | + + + + + | [facility] | [address] | [place], [place] | | | [facility] | | [id number] [place] [address] | | | - LABORATORY | | | | + + + + + Basic Metabolic Panel (06/09/2012 6:23 AM PST) + + + + + + | Component | Value | Ref Range | Performed | Pathologist | | | | | At | Signature | + + + + + + | Glucose | 110 (H) | 70 - 109 mg/dL | [facility] | | | | | | [facility] | | | | | | MEDICAL | | | | | | CENTER - | | | | | | LABORATORY | | + + + + + + | Calcium | 8.3 | 8.3 - 10.5 | [facility] | | | | | mg/dL | [facility] | | | | | | MEDICAL | | | | | | CENTER - | | | | | | LABORATORY | | + + + + + + | BUN | 10 | 7 - 18 mg/dL | [facility] | | | | | | [facility] | | | | | | MEDICAL | | | | | | CENTER - | | | | | | LABORATORY | | + + + + + + | Creatinine | 0.75 | 0.60 - 1.30 | [facility] | | | | | mg/dL | [facility] | | | | | | MEDICAL | | | | | | CENTER - | | | | | | LABORATORY | | + + + + + + | Estimated | >60Comment: For | >60 mL/min/A | [facility] | | | GFR | -Americans, | | [facility] | | | | please multiply the | | MEDICAL | | | | result by 1.210 | | CENTER - | | | | This is an estimated | | LABORATORY | | | | GFR and is based on a | | | | | | standard adult | | | | | | body mass (A=1.73m2) and | | | | | | serum creatinine | | | | + + + + + + | BUN/Creatin | 13.3 | 12 - 20 | [facility] | | | ine Ratio | | | [facility] | | | | | | MEDICAL | | | | | | CENTER - | | | | | | LABORATORY | | + + + + + + | Na | 134 (L) | 136 - 149 mEq/L | [facility] | | | | | | [facility] | | | | | | MEDICAL | | | | | | CENTER - | | | | | | LABORATORY | | + + + + + + | K | 4.2 | 3.5 - 5.1 mEq/l | [facility] | | | | | | [facility] | | | | | | MEDICAL | | | | | | CENTER - | | | | | | LABORATORY | | + + + + + + | Cl | 103 | 98 - 109 mEq/l | [facility] | | | | | | [facility] | | | | | | MEDICAL | | | | | | CENTER - | | | | | | LABORATORY | | + + + + + + | CO2 | 24 | 24 - 31 mEq/L | [facility] | | | | | | [facility] | | | | | | MEDICAL | | | | | | CENTER - | | | | | | LABORATORY | | + + + + + + | Anion Gap | 11.2 | 6.0 - 17.0 | [facility] | | | | | [...] + | [facility] | [address] | [place], [place] | [phone] | | [facility] | | [address] | | | - LABORATORY | | | | + + + + + | [facility] | [address] | [place], [place] | | | [facility] | | [address] | | | - LABORATORY | | | | + + + + + XR Chest AP Portable (06/08/2012 4:48 PM PST) + + | Specimen | + + | | + + + + + | Narrative | Performed At | + + + | [facility] Diagnostic Imaging | SHOCK | | Department [address] [place] | [facility] | | [ rep ct street1+2] [ rep ct [facility] | [facility]] Signed | - IMAGING | | | | | Patient Name: VALENTINA MUELLER Physician: | | | ABEBA : 1945 Age: 66 Sex: M Unit #: [id number] | | | Exam Date: 06/08/12 Location: [address] [place] [address] | | | Report #: [id number] Page: | | | %(RAD)RES..mtdd.print.filter("pg") of %(RAD) | | | RES..mtdd.print.filter("tpg") | | | | | | Accession Number: [id number] | | | CHEST, PORTABLE, 06/08/2012 CLINICAL HISTORY: SMOKING | | | HISTORY. COMPARISON: None. FINDINGS: AP | | | view of the chest was obtained. Bilateral lungs are | | | clear. Cardiomediastinal silhouette is normal. There are no acute | | | osseous abnormalities. IMPRESSION: 1. NO ACUTE | | | FINDINGS. Dictated Date/Time: 06/08/2012 16:48 | | | Transcribed Date/Time: 06/08/2012 16:54 Rotary Planer Set Up Operator: | | | <<Signature on File>> | | | James | | | MD Reece06/09/12 0000 <Electronically signed by James Newell MD> | | | James Newell MD 06/08/121647 Rotary Planer Set Up Operator: Aaron | | | [id number]/16/134 | | + + + + + + + + | Performing | Address | City/State/Zipcode | Phone Number | | Organization | | | | + + + + + | [facility] | [address] | [place] | [phone] | | [facility] | | [address] | | | - IMAGING | | | | + + + + + XR Foot Right 3 + Vw (06/08/2012 4:46 PM PST) + + | Specimen | + + | | + + + + + | Narrative | Performed At | + + + | [facility] Diagnostic Imaging | SHOCK | | Department [facility] | [facility] | | [ rep ct street1+2] [ rep [facility] | | st zip] Signed | - IMAGING | | | | | Patient Name: VALENTINA MUELLER Physician: | | | ABEBA : 1945 Age: 66 Sex: M Unit #: [id number] | | | Exam Date: 06/08/12 Location: [address] [place] [address] | | | Report #: [id number] Page: | | | %(RAD)RES..mtdd.print.filter("pg") of %(RAD) | | | RES..mtdd.print.filter("tpg") | | | | | | Accession Number: [id number] | | | RIGHT FOOT, 06/08/2012 CLINICAL HISTORY: EVALUATE FOR | | | OSTEOMYELITIS. COMPARISON: None. FINDINGS: Three | | | views of the right foot were obtained. On the lateral view, there | | | are some erosive degenerative changes involving the head of the 5th | | | metatarsal inferiorly that could represent osteomyelitis. A large | | | degenerative cyst is also visualized involving the head of the 5th | | | metatarsal. Subacute healing fractures are noted of the 4th and | | | 5th metatarsals. There has been previous amputation of the 5th | | | digit at the level of the proximal phalanx base. | | | IMPRESSION: 1. POSSIBLE OSTEOMYELITIS INVOLVING INFERIOR | | | HEAD OF FIRST METATARSAL. FURTHER CHARACTERIZATION CAN BE OBTAINED | | | WITH MRI PRE AND POST GADOLINIUM IF CLINICALLY INDICATED. | | | 2. SUBACUTE HEALING FRACTURES INVOLVING 4TH AND 5TH METATARSALS. | | | 3. 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 COMMENT: This | | | information was conveyed to the ER and discussed with Dr. Ceron | | | [place]. Dictated Date/Time: 06/08/2012 16:46 | | | Transcribed Date/Time: 06/08/2012 16:57 Rotary Planer Set Up Operator: | | | JoyBS <<Signature on File>> | | | James | | | MD Reece06/09/12 0000 <Electronically signed by James Newell MD> | | | James Newell MD 06/08/12 1646 Rotary Planer Set Up Operator: Webmed[employer] | | | [id number]/16/13 1657 | | + + + + + + + + | Performing | Address | City/State/Zipcode | Phone Number | | Organization | | | | + + + + + | [facility] | [address] | [place] | [phone] | | [facility] | | [address] | | | - IMAGING | | | | + + + + + CBC with Manual Differential (06/08/2012 3:57 PM PST) + + + + + + | Component | Value | Ref Range | Performed | Pathologist | | | | | At | Signature | + + + + + + | WBC | 12.8 (H) | 4.0 - 11.0 K/uL | [facility] | | | | | | [facility] | | | | | | MEDICAL | | | | | | CENTER - | | | | | | LABORATORY | | + + + + + + | RBC | 5.03 | 4.30 - 5.70 | [facility] | | | | | M/uL | [facility] | | | | | | MEDICAL | | | | | | CENTER - | | | | | | LABORATORY | | + + + + + + | Hemoglobin | 15.9 | 13.5 - 18.0 | [facility] | | | | | gm/dL | [facility] | | | | | | MEDICAL | | | | | | CENTER - | | | | | | LABORATORY | | + + + + + + | Hematocrit | 48.4 | 40.0 - 51.0 % | [facility] | | | | | | [facility] | | | | | | MEDICAL | | | | | | CENTER - | | | | | | LABORATORY | | + + + + + + | MCV | 96.3 [...] + + + + | MCHC | 32.9 | 32.0 - 36.0 | [facility] | | | | | g/dL | [facility] | | | | | | MEDICAL | | | | | | CENTER - | | | | | | LABORATORY | | + + + + + + | RDW-CV | 13.2 | <15.0 % | [facility] | | | | | | [facility] | | | | | | MEDICAL | | | | | | CENTER - | | | | | | LABORATORY | | + + + + + + | Platelet | 333 | 140 - 440 K/uL | [facility] | | | Count | | | [facility] | | | | | | MEDICAL | | | | | | CENTER - | | | | | | LABORATORY | | + + + + + + | Total | 100 | | [facility] | | | Counted | | | [facility] | | | | | | MEDICAL | | | | | | CENTER - | | | | | | LABORATORY | | + + + + + + | % Segmented | 80 (H) | 50 - 70 % | [facility] | | | | | | [facility] | | | Neutrophils | | | MEDICAL | | | | | | CENTER - | | | | | | LABORATORY | | + + + + + + | % Bands | 2 | 0 - 5 % | [facility] | | | | | | [facility] | | | | | | MEDICAL | | | | | | CENTER - | | | | | | LABORATORY | | + + + + + + | % | 13 (L) | 20 - 40 % | [facility] | | | Lymphocytes | | | [facility] | | | | | | MEDICAL | | | | | | CENTER - | | | | | | LABORATORY | | + + + + + + | % Monocytes | 5 | 1 - 6 % | [facility] | | | | | | [facility] | | | | | | MEDICAL | | | | | | CENTER - | | | | | | LABORATORY | | + + + + + + | RBC | NORMAL | | [facility] | | | Morphology | | | [facility] | | | | | | MEDICAL | | | | | | CENTER - | | | | | | LABORATORY | | + + + + + + | Platelet | ADEQUATE | | [facility] | | | Estimate | | | [facility] | | [...] [address] | [place] | [phone] | | [facility] | | [address] | | | - LABORATORY | | | | + + + + + | [facility] | [address] | [place] | | | [facility] | | [address] | | | - LABORATORY | | | | + + + + + Sedimentation Rate (06/08/2012 3:57 PM PST) + +-------+ + + + | Component | Value | Ref Range | Performed | Pathologist | | | | | At | Signature | + +-------+ + + + | Erythrocyte | 12 | 0 - 20 mm/hr | [facility] | | | | | | [facility] | | | Sedimentati | | [...] + | [facility] | [address] | [place], [place] | [phone] | | [facility] | | [address] | | | - LABORATORY | | | | + + + + + | [facility] | [address] | [place], [place] | | | [facility] | | [address] [place] [address] | | | - LABORATORY | | | | + + + + + Lactic Acid (06/08/2012 3:55 PM PST) + +-------+ + + + | Component | Value | Ref Range | Performed | Pathologist | | | | | At | Signature | + +-------+ + + + | Lactate, | 1.3 | 0.5 - 2.2 | [facility] | | | Serum | | mmol/L | [facility] | [address] | [place] | [phone] | | [facility] | | [address] | | | - LABORATORY | | | | + + + + + | [facility] | [address] | [place] | | | [facility] | | [address] | | | - LABORATORY | | | | + + + + + Comprehensive Metabolic Panel (06/08/2012 3:55 PM PST) + + + + + + | Component | Value | Ref Range | Performed | Pathologist | | | | | At | Signature | + + + + + + | Glucose | 126 (H) | 70 - 109 mg/dL | [facility] | | | | | | [facility] [...] + + + + | Alkaline | 91 | 40 - 110 IU/L | [facility] | | | Phosphatase | | | [facility] | | | | | | MEDICAL | | | | | | CENTER - | | | | | | LABORATORY | | + + + + + + | AST | 25 | 10 - 42 IU/L | [facility] | | | | | | [facility] | | | | | | MEDICAL | | | | | | CENTER - | | | | | | LABORATORY | | + + + + + + | ALT | 26 | 6 - 45 IU/L | [facility] | | | | | | [facility] | | | | | | MEDICAL | | | | | | CENTER - | | | | | | LABORATORY | | + + + + + + | Bilirubin | 0.6 | 0.2 - 1.0 mg/dL | [facility] | | | Total | | | [facility] | | | | | | MEDICAL | | | | | | CENTER - | | | | | | LABORATORY | | + + + + + + | Total | 7.0 | 6.0 - 7.8 gm/dL | [facility] | | | Protein | | | [facility] | | | | | | MEDICAL | | | | | | CENTER - | | | | | | LABORATORY | | + + + + + + | Albumin | 3.3 | 3.2 - 5.0 gm/dL | [facility] | | | | | | [facility] | | | | | | MEDICAL | | | | | | CENTER - | | | | | | LABORATORY | | + + + + + + | BUN | 11 | 7 - 18 mg/dL | [facility] | | | | | | [facility] | | | | | | [facility]ICAL | | | | | | CENTER - | | | | | | LABORATORY | | + + + + + + | Creatinine | 0.89 | 0.60 - 1.30 | [facility] | | | | | mg/dL | [facility] | | | | | | MEDICAL | | | | | | CENTER - | | | | | | LABORATORY | | + + + + + + | Estimated | >60Comment: For | >60 mL/min/A | [facility] | | | GFR | -Americans, | | [facility] | | | | please multiply the | | MEDICAL | | | | result by 1.210 | | CENTER - | | | | This is an estimated | | LABORATORY | | | | GFR and is based on a | | | | | | standard adult | | | | | | body mass (A=1.73m2) and | | | | | | serum creatinine | | | | + + + + + + | BUN/Creatin | 12.4 | 12 - 20 | [facility] | | | ine Ratio | | | [facility] | | | | | | MEDICAL | | | | | | CENTER - | | | | | | LABORATORY | | + + + + + + | Na | 135 (L) | 136 - 149 mEq/L | [facility] | | | | | | [facility] | | | | | | MEDICAL | | | | | | CENTER - | | | | | | LABORATORY | | + + + + + + | K | 4.2 | 3.5 - 5.1 mEq/l | [facility] | | | | | | [facility] | | | | | | MEDICAL | | | | | | CENTER - | | | | | | LABORATORY | | + + + + + + | Cl | 97 (L) | 98 - 109 mEq/l | [facility] | | | | | | [facility] | | | | | | MEDICAL | | | | | | CENTER - | | | | | | LABORATORY | | + + + + + + | CO2 | 26 | 24 - 31 mEq/L | [facility] | | | | | | [facility] | | | | | | MEDICAL | | | | | | CENTER - | | | | | | LABORATORY | | + + + + + + | Anion Gap | 16.2 | 6.0 - 17.0 | [facility] | | | | | [...] + | [facility] | [address] | [place] | [phone] | | [facility] | | [address] | | | - LABORATORY | | | | + + + + + | [facility] | [address] | [place], [place] | | | [facility] | | [address], [facility] | | | - LABORATORY | | | | + + + + + C-Reactive Protein (06/08/2012 3:55 PM PST) + + + + + + | Component | Value | Ref Range | Performed | Pathologist | | | | | At | Signature | + + + + + + | CRP | 198.3 (H)Comment: Levels | <8.0 mg/L | [facility] | | | | >8.0 mg/L indicate | | [facility] | | | | possible infection, | | MEDICAL | | | | trauma, cardiac | | CENTER - | | | | infarct or neoplastic | | LABORATORY | | | | proliferation. | | | | + + + + + + + + | Specimen | + + | | + + + + + + + | Performing | Address | City/State/Zipcode | Phone Number | | Organization | | | | + + + + + | [facility] | [address] | [place] | [phone] | | [facility] | | [address] | | | - LABORATORY | | | | + + + + + | [facility] | [address] | [place] | | | [facility] | | [address], [facility] | | | - LABORATORY | | | | + + + + + CK Total (06/08/2012 3:55 PM PST) + +-------+ + + + | Component | Value | Ref Range | Performed | Pathologist | | | | | At | Signature | + +-------+ + + + | CK TOTAL | 51 | 22 - 269 IU/L | [facility] | | | | | | [facility] | | | | | | MEDICAL | | | | | | CENTER - | | | | | | LABORATORY | | + +-------+ + + + + + | Specimen | + + | | + + + + + + + | Performing | Address | City/State/[facility] Corporationcode | Phone Number | | Organization | | | | + + + + + | [facility] | [address] | [place], [place] | [phone] | | [facility] | | [address] | | | - LABORATORY | | | | + + + + + | [facility] | [address] | [place], [place] | | | [facility] | | [address] [place] [address] | | | - LABORATORY | | | | + + + + + documented in this encounter Visit Diagnoses Not on filedocumented in this encounter
--- OUTSIDE RECORDS SUMMARY | ~2019-09-14 | XMS | Encounter Summary ---
Demographics + + + | Address | [address] | | | [place] [address] | + + + | Home Phone | | + + + | Preferred Language | Unknown | + + + | Marital Status | Single | + + + | Rastafarian Affiliation | Unknown | + + + | Race | Unknown | + + + | Ethnic Group | Unknown | + + + Author + + + | Author | [facility] | | | and [facility] | + + + | Organization | [facility] | | | [...] | | | | | [place] [address] | | + + + + + Care Team Providers + +------+ + | Care Church History Teacher Name | Role | Phone | + [...] + + + + | 05/21/ | Lab | [facility] | Geoff Simpson | ammy Ruggiero | | 2019 | Requisition | [facility] | MD Gregory 79 | elsewhere classified | | | | [address] | [place] | ([facility]); | | | | [place] | [place] [address] | Osteomyelitis, | | | | [address] | [phone] | unspecified ([facility]) | | | | [phone] | | | +--------+ + + + [...] + | CBC WITH | Routin | 05/21/2019 | Gangrene, not | Results for this | | DIFFERENTIAL | e | 10:20 AM | elsewhere classified | procedure are in the | | | | PST | ([facility]) | results section. | | | | | Osteomyelitis, | | | | | | unspecified (HCC) | | + +--------+ + + + | COMPREHENSIVE | Routin | 05/21/2019 | Gangrene, not | Results for this | | METABOLIC PANEL | e | 10:20 AM | elsewhere classified | procedure are in the | | | | PST | ([facility]) | results section. | | | | | Osteomyelitis, | | | | | | unspecified (HCC) | | + +--------+ + + + documented in this encounter Results Comprehensive Metabolic Panel (05/21/2019 10:20 AM PST) + + + + + + | Component | Value | Ref Range | Performed | Pathologist | | | | | At | Signature | + + + + + + | Na | 136 | 136 - 145 | [facility] | | | | | mmol/L | [facility] | | | | | | [facility] | | | | | | [facility] - | | | | | | LABORATORY | | + + + + + + | K | 4.0 | 3.4 - 5.1 | [facility] | | | | | mmol/L | [facility] | | | | | | [facility] | | | | | | CENTER - | | | | | | LABORATORY | | + + + + + + | Cl | 102 | 98 - 107 mmol/L | [facility] | | | | | | [facility] | | | | | | [facility] | | | | | | CENTER - | | | | | | LABORATORY | | + + + + + + | CO2 | 28 | 20 - 31 mmol/L | [facility] [...] + + + + | Glucose | 160 (H) | 60 - 106 mg/dL | [facility] | | | | | | [facility] | | | | | | [facility] | | | | | | CENTER - | | | | | | LABORATORY | | + + + + + + | BUN | 10 | 9 - 23 mg/dL | [facility] | | | | | | [facility] | | | | | | [facility] | | | | | | C[facility] - | | | | | | LABORATORY | | + + + + + + | Creatinine | 0.72 | 0.70 - 1.30 | [facility] | | | | | mg/dL | [facility] | | | | | | MEDICAL | | | | | | CENTER - | | | | | | LABORATORY | | + + + + + + | eGFR if not | >60Comment: GLOMERULAR | >=60 | [facility] | | | | FILTRATION | mL/min/1.73m2 | [facility] | | | STATELESS | RATE,ESTIMATED | | MEDICAL | | | | mL/min/1.01m4Qmht than | | CENTER - | | [...] + + | Calcium | 8.7 | 8.7 - 10.4 | [facility] | | | | | mg/dL | [facility] | | | | | | MEDICAL | | | | | | CENTER - | | | | | | LABORATORY | | + + + + + + | Albumin | 3.5 | 3.2 - 4.8 g/dL | [facility] | | | | | | [facility] | | | | | | [facility] | | | | | | CENTER - | | | | | | LABORATORY | | + + + + + + | Bilirubin | <0.2 (L) | 0.3 - 1.2 mg/dL | [facility] | | | Total | | | [facility] | | | | | | MEDICAL | | | | | | CENTER - | | | | | | LABORATORY | | + + + + + + | Total | 6.3 | 5.7 - 8.2 g/dL | [facility] | | | Protein | | | [facility] | | | | | | MEDICAL | | | | | | CENTER - | | | | | | LABORATORY | | + + + + + + | AST | 12 | 0 - 34 U/L | [facility] [...] + + + + | Alkaline | 128 (H) | 46 - 116 U/L | [facility] | | | Phosphatase | | | [facility] | | | | | | MEDICAL | | | | | | CENTER - | | | | | | LABORATORY | | + + + + + + | Globulin | 2.8 | 2.1 - 3.8 g/dL | [facility] | | | | | | [facility] | | | | | | [facility]ICAL | | | | | | CENTER - | | | | | | LABORATORY | | + + + + + + | Albumin/Ivon | 1.3 | 0.8 - 1.9 | [facility] | | | bulin Ratio | | | [facility] | | | | | | MEDICAL | | | | | | CENTER - | | | | | | LABORATORY | | + + + + + + | BUN/Creatin | 13.9 | | [facility] | | | ine [...] [address] | [place] | [phone] | | [facility] | | [address] | | | - LABORATORY | | | | + + + + + CBC with Differential (05/21/2019 10:20 AM PST) + + + + + + | Component | Value | Ref Range | Performed | Pathologist | | | | | At | Signature | + + + + + + | WBC | 8.7 | 4.0 - 11.0 K/uL | [facility] | | | | | | [facility] | | | | | | [facility]ICAL | | | | | | CENTER - | | | | | | LABORATORY | | + + + + + + | RBC | 4.27 (L) | 4.30 - 5.70 | [facility] [...] + + | Hematocrit | 40.1 | 40.0 - 51.0 % | [facility] | | | | | | [facility] | | | | | | [facility]ICAL | | | | | | CENTER - | | | | | | LABORATORY | | + + + + + + | MCV | 93.9 | 83.0 - 101.0 fL | [facility] [...] + + + + | RDW-SD | 46.6 (H) | 35.1 - 46.3 fL | [facility] | | | | | | [facility] | | | | | | MEDICAL | | | | | | CENTER - | | | | | | LABORATORY | | + + + + + + | Platelet | 411 | 140 - 440 K/uL | [facility] | | | Count | | | [facility] | | | | | | MEDICAL | | | | | | CENTER - | | | | | | LABORATORY | | + + + + + + | MPV | 12.4 | 6.5 - 12.4 fL | [facility] | | | | | | [facility] | | | | | | MEDICAL | | | | | | CENTER - | | | | | | LABORATORY | | + + + + + + | % | 75.5 | 45.0 - 82.0 % | [facility] | | | Neutrophils | | | [facility] | | | | | | MEDICAL | | | | | | CENTER - | | | | | | LABORATORY | | + + + + + + | % | 16.8 (L) | 20.0 - 45.0 % | [...] + + + + | % | 0.7 | 0.0 - 5.0 % | [facility] [...] + + + + | Absolute | 6.53 | 1.80 - 8.50 | [facility] | | | Neutrophils | | K/uL | [facility] | | | | | | MEDICAL | | | | | | CENTER - | | | | | | LABORATORY | | + + + + + + | Absolute | 1.45 | 0.60 - 3.20 | [facility] | [...] + + + | Absolute | 0.06 | 0.00 - 0.40 | [facility] | | | Eosinophils | | K/uL | [facility] | | | | | | MEDICAL | | | | | | CENTER - | | | | | | LABORATORY | | + + + + + + | Absolute | 0.12 (H) | 0.00 - 0.10 | [facility] | | | Basophils | | K/uL | [facility] | | | | | | MEDICAL | | | | | | CENTER - | | | | | | LABORATORY | | + + + + + + | Absolute | 0.03 [...] [address] | [place] | [phone] | | [facility] | | [address] | | | - LABORATORY | | | | + + + + + documented in this encounter Visit Diagnoses + + | Diagnosis | + + | Gangrene, not elsewhere classified (HCC) | + + | Osteomyelitis, unspecified (HCC) | + + documented in this encounter"
--- OUTSIDE RECORDS SUMMARY | ~2019-09-14 | XMS | Encounter Summary ---
Demographics + + + | Address | [address] | | | [place] [address] | + + + | Home Phone [...] [facility] | | [facility] | + + + | Organization | [facility] | | | and [facility] | + + + | Address | Unknown | + + + | Phone | Unavailable | + + + Support + + + + + | Name | Relationship | Address | Phone | + + + + + | Vla Torrez | ECON | [address] | | | | | [place] [address] | | + + + + + Care Team Providers + +------+ + | Care Security Software Engineer Name | Role | Phone | + +------+ + | Shi Miramontes | PCP | | + +------+ + Reason for Visit + + + | Reason | Comments | + + + | Discharge Without | | | Visit | | + + + Encounter Details +--------+ + + + + | Date | Type | Department | Care Team | Description | +--------+ + + + + | 04/12/ | Documentati | [facility] | Carol Ann Medrano Jo, | Discharge Without | | 2019 | on | [facility] | PT [address] | Visit | | | | [address] | [place] | | | | | [place] | [address] | | | | | [address] | | | | | | [phone] | | | +--------+ + + + [...] Progress Notes Carol Ann Medrano, PT - 04/12/2019 10:04 AM PSTFormatting of this note might be different fro m the original. [facility] [address] [place] [address] [facility] [address] Physical Therapy Discharge Note This discharge is associated with the evaluation completed on 11/28/18. Date: 04/12/2019 Patient Information Patient Name: Paul Bunn Date of : 1945 Age: 73 y.o. Encounter Diagnoses Code Name Primary? 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 Goal status is unknown at th is time. This note serves as discharge from therapy. Patient Cancelled remaining sessions and was recently hospitalized. The last progress note or the patients initial evaluation will serve as objective status fo r purposes of discharge. 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
--- OUTSIDE RECORDS SUMMARY | ~2019-09-14 | XMS | Encounter Summary ---
Demographics + + + | Address | [address] | | | [place] [address] | + + + | Home Phone | | + + + | Preferred Language | Unknown | + + + | Marital Status | Single | + + + | Mandaeism Affiliation | Unknown | + + + | Race | Unknown | + + + | Ethnic Group | Unknown | + + + Author + + + | Author | [facility] | | | and [facility] | + + + | Organization | [facility] | | | and [...] | | | | | [place] [address] | | + + + + + Care Team Providers + +------+ + | Care Social Services Coordinator Name | Role | Phone | [...] + + + + | 06/16/ | Home Care | [facility] | Bre Irvin RN | SN DISCHARGE (OASIS) | | 2020 | Visit | [facility] [address] | | | | | | [place], [place] | | | | | | [address] | | | | | | [phone] | | | +--------+ + + + [...] + + + | Blood Pressure | 138/54 | 06/16/2019 10:02 AM | | | | | PST | | + + + + + | Pulse | 60 | 06/16/2019 10:02 AM | | | | | PST | | + + + + + | Temperature | 36 C (96.8 F) | 06/16/2019 10:02 AM | | | | | PST | | + + + + + | Respiratory Rate | 16 | 06/16/2019 10:02 AM | | | | | PST | | + + + + + | Oxygen Saturation | 99% | 06/16/2019 10:02 AM | | | | | PST [...] | Visit Type - SN - OASIS D/C | | Discipline - Assisted | + + + + +--------+--------+-------+ + | Problem | Description | Start | Status | Goals | Interventio | | | | Date | | | ns | + + +--------+--------+-------+ + | Central/Midline IV | PICC right upper | | | - | 2 problem | | Disciplines: | arm | 05/09/ | Active | | | | Assisted | | 2018 | | | interventio [...] 05/09/ | Active | | | | Assisted | | 2018 | | | interventio [...] | | | | n | | Assisted, | | | | | scheduled/d | | Digital Account Supervisor | | | | | ocumented | [...] | | identify | Central/Midline IV | Schedu | | | | complications from | | led | | | | IV therapy | | | | | | Description: | | | | | | Assess and identify | | | | | | s/s of infection | | | | | | from PICC site. | | | | | + + +--------+--------+ + | Instruct in | Problem: | | | | | administration of IV | Central/Midline IV | Schedu | | | | solutions/meds per | | led | | | | MD order | | | | | | Description: clean | | | | | | PICC with alcohol | | | | | | wipe, flush with 10 | | | | | | ml NS then Rocephin | | | | | | 2g IV over 5 min via | | | | | | PICC daily until | | [...] | | Description: Wound | Wound | Schedu | | | | type: Left toes | | led | | | | amputation and I&D. [...]
--- OUTSIDE RECORDS SUMMARY | ~2019-09-14 | XMS | Encounter Summary ---
Demographics + + + | Address | [address] | | | [place] [address] | + + + | Home Phone | | + + + | Preferred Language | Unknown | + + + | Marital Status | Single | + + + | Roman Catholic Affiliation | Unknown | + + [...] | | | | | [place] [address] | | + + + + + Care Team Providers + +------+ + | Care Implementation Director Name | Role | Phone | [...] | +--------+ + + + + | 11/30/ | Anesthesia | [facility] | Vikram Cheung | | | 2013 | Event | MED CTR OR INTRA OP | MD Hanh [address] | | | | | [address] | [place] | | | | | [place] | [address] | | | | | [address] | [phone] | | | | | [phone] | | | +--------+ + + + + Anesthesia Record + + + + + | Procedure Name | Responsible | Anesthesia Start | Anesthesia Stop Time | | | Anesthesiologist | Time | | + + + + + | melo norton, | | 11/30/13 0905 | 11/30/13 1136 | | lysis of adhesions, | | | | | repair small bowel | | | | | (N/A ) | | | | + + + + + +----+---+ + + | Da | T | Event | Comment | | te | i | | | | | m | | | | | e | | | +----+---+ + + | 07 | 0 | | | | /1 | 8 | | | | 0/ | 5 | | | | 20 | 7 | | | | 14 | | | | +----+---+ + + | | 0 | An Checkout | Pre-use anesthesia machine/equipment checkout | | | 9 | | | | | 0 | | | | | 1 | | | +----+---+ + + | | 0 | An Start | Reassessment prior to anesthesia induction/procedure. | | | 9 | | | | | 0 | | | | | 5 | | | +----+---+ + + | | 0 | an tsering now | IN ROOM | | | 9 | | | | | 0 | | | | | 7 | | | +----+---+ + + | | 0 | AN | Per surgeon request | | | 9 | Antibiotic | | | | 0 | declined | | | | 8 | | | +----+---+ + + | | 0 | Preoxygenat | | | | 9 | ed | | | | 1 | | | | | 5 | | | +----+---+ + + | | 0 | An | Delayed induction until BP cuff replaced and working. | | | 9 | Induction | | | | 1 | | | | | 8 | | | +----+---+ + + | | 0 | An | | | | 9 | Intubation | | | | 1 | | | | | 9 | | | +----+---+ + + | | 0 | an tsering now | START | | | 9 | | | | | 3 | | | | | 5 | | | +----+---+ + + | | 1 | Quick Note | Running small bowel... Some adhesions let down. | | | 0 | | | | | 2 | | | | | 3 | | | +----+---+ + + | | 1 | Breathing | | | | 1 | Spontaneous | | | | 0 | ly | | | | 5 | | | +----+---+ + + | | 1 | Oropharynx | | | | 1 | Suctioned | | | | 1 | | | | | 8 | | | +----+---+ + + | | 1 | Moving | | | | 1 | Purposefull | | | | 2 | y | | | | 1 | | | +----+---+ + + | | 1 | Extubated | | | | 1 | Awake | | | | 2 | | | | | 2 | | | +----+---+ + + | | 1 | an tsering now | PACU | | | 1 | | | | | 2 | | | | | 5 | | | +----+---+ + + | | 1 | An Stop | Patient handed off to recovery nurse. | | | 3 | | | | | 6 | | | +----+---+ + + +------+ | Meds | +------+ + + + | Name | Total | + + + | propofol | 150 mg | + + + | ondansetron | 4 mg | + + + | fentaNYL | 300 mcg | + + + | rocuronium | 60 mg | + + + | LR (Infusion) | 1,400 mL | + + + + + | [...] Removal | +--------+ + + + | NG/OG | 11/28/13; 1535; Lilly vop, | 11/28/13 1535 by | 12/01/13 1900 by | | | nasoenteric decompression tube; | Lynnette Copeland RN | Freda Levin RN | | | 16; right nostril; stomach; | | | | | gastric decompression; 12/01/13; | | | | | 1900 | | | +--------+ + + + | [READ | 11/29/13; 0745; 12/03/13; 1350 | 11/29/13 0745 by | 12/03/13 1350 by | | ONLY] | | Jennifer Osorio | Freda Levin RN | | | | RODGER Franco | | | Periph | | | | | eral | | | | | IV - | | | | | Single | | | | | Lumen | | | | | | | | | +--------+ + + + | Airway | Placement Date: 11/30/13; | 11/30/13918 by | 11/30/13 112 by | | | Placement Time: 918; Mask | Vikram P Skaarup, | Vikram P Skaarup, | | | Ventilation: N/A (Planned RSI.); | MD | MD | | | Airway Grade: II; Successful | | | | | Technique: video scope; | | | | | Laryngoscope Blade Size: 3; | | | | | Attempts: 1; Airway Type: | | | | | endotracheal, oral, cuffed; Size: | | | | | 6.5; Airway Tube Secured At: | | | | | 0.21 m (8.27"); Tube Reference | | | | | Point: lip, secure and patent; | | | | | Trauma: none; Placement Check: | | | | | verified by capnography, verified | | | | | by auscultation; Placed By: | | | | | Anesthesiologist; Removal: per | | | | | protocol; Removal Date: 11/30/13; | | | | | Removal Time: 1121 | | | +--------+ + + + | Read | 11/30/13; 946; abdomen; removed | 11/30/13946 by | 03/18/17 0000 by | | only - | in past; 03/18/17 | Dannie Parker RN | Yoli Horton RN | | | | | | | Incisi | | | | | on | | | | +--------+ + + [...] | | | + +--------+ +--------+------+------+ | fentaNYL injection PRN, Pain, | Given | 12/01/19 | 50 mcg | | | | Starting Nelida 11/30/13 at 0915, | | 14 11:15 | | | | | Anesthesia Intra-op | | AM PDT | | | | + +--------+ +--------+------+------+ +-------+ +---------+---+---+ | Given | 12/01/19 | 50 mcg | | | | | 14 9:44 | | | | | | AM PDT | | | | +-------+ +---------+---+---+ | Given | 12/01/19 | 150 mcg | | | | | 14 9:18 | | | | | | AM PDT | | | | +-------+ +---------+---+---+ +---+---+ | | | +---+---+ + + + +---+-------+---+ | lactated ringers (LR) infusion | Rate/Dos | 12/01/19 | | 100 | | | Intravenous, CONTINUOUS PRN, | e Change | 14 1:06 | | mL/hr | | | Starting [facility] 11/30/13 at 0908, | | PM PDT | | | | | Anesthesia Intra-op | | | | | | + + + +---+-------+---+ +---------+ +----+---+---+ | New Bag | 12/01/19 | mL | | | | | 14 9:05 | | | | | | AM PDT | | | | +---------+ +----+---+---+ +---+---+ | | | +---+---+ + +-------+ +------+---+---+ | ondansetron (ZOFRAN) injection | Given | 12/01/19 | 4 mg | | | | PRN, Nausea, Vomiting, Starting | | 14 9:08 | | | | | Nelida 11/30/13 at 0908, Anesthesia | | AM PDT | | | | | Intra-op | | | | | | + +-------+ +------+---+---+ +---+---+ | | | +---+---+ + +-------+ +--------+---+---+ | propofol (DIPRIVAN) injection | Given | 12/01/19 | 150 mg | | | | PRN, Starting Nelida 11/30/13 at | | 14 9:18 | | | | | 0918, Anesthesia Intra-op | | AM PDT | | | | + +-------+ +--------+---+---+ +---+---+ | | | +---+---+ + +-------+ +-------+---+---+ | rocuronium (ZEMURON) injection | Given | 12/01/19 | 10 mg | | | | Intravenous, PRN, Starting Nelida | | 14 9:40 | | | | | 11/30/13 at 0918, Anesthesia | | AM PDT | | | | | Intra-op | | | | | | + +-------+ +-------+---+---+ +-------+ +-------+---+---+ | Given | 12/01/19 | 50 mg | | | | | 14 9:18 | | | | | | AM PDT | | | | +-------+ +-------+---+---+ +---+---+ | | | +---+---+ documented in this encounter
--- OUTSIDE RECORDS SUMMARY | ~2019-09-14 | XMS | Encounter Summary ---
Demographics + + + | Address | [address] | | | [place] [address] | + + + | Home Phone | | + + + | Preferred Language | Unknown | + + + | Marital Status | Single | + + + | Pentecostal Affiliation | Unknown | + + + | Race | Unknown | + + + | Ethnic Group | Unknown | + + + Author + + + | Author | [facility] | | | and [facility] | + + + | Organization | [facility] | | | and [...] | | | | | [place] [address] | | + + + + + Care Team Providers + +------+ + | Care Log Driver Name | Role | Phone | [...] | +--------+ + + + + | 06/12/ | Home Care | [facility] | Bre Irvin RN | SN REPEAT VISIT | | 2019 | Visit | [facility] [address] | | | | | | [place] | | | | | | [address] | | | | | | [phone] | | | +--------+ + + + [...] + + + | Blood Pressure | 110/58 | 06/12/2019 10:22 AM | | | | | PST | | + + + + + | Pulse | 68 | 06/12/2019 10:22 AM | | | | | PST | | + + + + + | Temperature | 36.3 C (97.3 F) | 06/12/2019 10:22 AM | | | | | PST | | + + + + + | Respiratory Rate | 16 | 06/12/2019 10:22 AM | | | | | PST | | + + + + + | Oxygen Saturation | 98% | 06/12/2019 10:22 AM | | | | | PST [...] - REPEAT VISIT | | Discipline - Fpc | + + + + +--------+--------+ + + | Problem | Description | Start | Status | Goals | Interventio | | | | Date | | | ns | + + +--------+--------+ + + | Central/Midline IV | PICC right upper | | | - | 4 problem | | Disciplines: | arm | 05/09/ | Active | | | | Fpc | | 2018 | | | interventio [...] | | scheduled/d | n | | Fpc | | | | ocumented | scheduled/d [...] 05/09/ | Active | | | | Fpc | | 2018 | | | interventio [...] 05/09/ | Active | | | | [facility]pc | | 2018 | | | interventio [...] | | | | n | | Fpc, | | | | | scheduled/d | | Data Center Technician | | | | | ocumented | [...] | | | | | | from [facility] site. | | | | | [...] IV | Comple | | changed per [facility] | | Transparent and | | tj [...] | | | Next lab draw due NA. | | Flash also. | | | | | | [phone] | | | | | | Calvin [...] prevention | Problem: SHARED | | | | [...]
--- OUTSIDE RECORDS SUMMARY | ~2019-09-14 | XMS | Encounter Summary ---
Demographics + + + | Address | [address] | | | [place] [address] | + + + | Home Phone | | + + + | Preferred Language | Unknown | + + + | Marital Status | Single | + + + | Judaism Affiliation | Unknown | + + + | Race | Unknown | + + + | Ethnic Group | Unknown | + + + Author + + + | Author | [facility] | | | and [facility] | + + + | Organization | [facility] | | | [...] | | | | | [place] [address] | | + + + + + Care Team Providers + +------+ + | Care Down Filler Name | Role | Phone | + [...] | | | | Procedures | [place] | | | | | | VAS Lower | [address] | | | | | | Extremity | Phone: | | | | | | Arteries | [phone] | | | | | | Left | Fax: | | | | | | | [phone] | | +--------+--------+ + + + + Reason for Visit + + + | Reason | Comments | + + + | Follow-up | | + + + Encounter Details +--------+ + + + + | Date | Type | Department | Care Team | Description | +--------+ + + + + | 07/12/ | Telephone | [facility] | Dannielle Carrasco, | Follow-up | | 2019 | | VASCULAR SURGERY | Tower Truck Driver | | | | | [address] | | | | | | [place] | | | | | | [address] | | | | | | [phone] | | | +--------+ + + + [...] of this encounter Plan of Treatment + +---------+--------+ + + | Name | Type | Priori | Associated Diagnoses | Order Schedule | | | | ty | | | + +---------+--------+ + + | VAS Lower Extremity | Imaging | Routin | PAD (peripheral | Expected: | | Arteries Left | | e | artery disease) | 07/26/2019, Expires: | | | | | (HCC) | 07/12/2020 | + +---------+--------+ + + documented as of this encounter Visit Diagnoses + + | Diagnosis | + + | PAD (peripheral artery disease) (HCC) - Primary Unspecified disorders of arteries and | | arterioles | + + documented in this encounter"
--- OUTSIDE RECORDS SUMMARY | ~2019-09-14 | XMS | Encounter Summary ---
Demographics + + + | Address | [address] | | | [place] [address] | + + + | Home Phone [...] + + + | Author | [facility] | | [facility] | + + + | Organization | [facility] | | | [...] | | | | | [place] [address] | | + + + + + Care Team Providers + +------+ + | Care Space Technologist Name | Role | Phone | + [...] | +--------+ + + + + | 01/30/ | Telephone | [facility] | Gely Medranoy Jo, | Missed Visit | | 2019 | | [facility] | [address] | | | | | [address] | [place] | | | | | [place] | [address] | | | | | [address] | | | | | | [phone] | | | +--------+ + + + [...]
--- OUTSIDE RECORDS SUMMARY | ~2019-09-14 | XMS | Encounter Summary ---
Demographics + + + | Address | [address] | | | [place] [address] | + + + | Home Phone [...] [place] | | [facility] | + + + | Organization [...] | | | | | [place] [address] | | + + + + + Care Team Providers + +------+ + | Care Analytical Statistician Name | Role | Phone | + +------+ + | Shi Miramontes | PCP | | + +------+ + Reason for Visit + + + | Reason | Comments | + + + | Procedure | | + + + Encounter Details +--------+ + + + + | Date | Type | Department | Care Team | Description | +--------+ + + + + | 06/26/ | Telephone | [facility] | Tenisha Polanco, | Procedure | | 2020 | | VASCULAR SURGERY | RN | | | | | [address] | | | | | | [place] | | | | | | [address] | | | | | | [phone] | | | +--------+ + + + [...]
--- OUTSIDE RECORDS SUMMARY | ~2019-09-14 | XMS | Clinical Summary ---
Demographics + + + | Address | [address] | | | [place] [address] | + + + | Home Phone | | + + + | Preferred Language | Unknown | + + + | Marital Status | Single | + + + | Taoism Affiliation | Unknown | + + + [...] | | | | | [place] [address] | | + + + + + Care Team Providers + +------+ + | Care Chief Of Field Operations Name | Role | Phone | + +------+ + | Shi Miramontes | PCP | | + +------+ + Allergies + + + + + + | Active Allergy | Reactions | Severity | Noted | Comments | | | | | Date | | + + + + + + | Ketamine | Other (See Comments) | | 03/13/20 | agitation | | | | | 17 | | + + + + + + Medications + + + +---------+------+------+-------+ | Medication | Sig | Dispensed | Refills | Star | End | Statu | | | | | | t | Date | s | | | | | | Date | | | + + + +---------+------+------+-------+ | ascorbic acid | Take 500 mg by mouth | | 0 | | | Activ | | (VITAMIN C) 500 mg | Daily. | | | | | e | | tablet | | | | | | | + + + +---------+------+------+-------+ | calcium-vitamin D | Take 1,200 mg by | | 0 | | | Activ | | (CALCIUM 600 + D) | mouth every evening. | | | | | e | | 600-400 MG-UNIT TABS | | | | | | | + + + +---------+------+------+-------+ | aspirin 81 MG EC | Take 81 mg by mouth | | 0 | | | Activ | | tablet | Daily. | | | | | e | + + + +---------+------+------+-------+ | cholecalciferol | Take 2,000 Units by | | 0 | | | Activ | | (VITAMIN D-3) 1,000 | mouth Daily. | | | | | e | | units tablet | | | | | | | + + + +---------+------+------+-------+ | docusate sodium | Take 250 mg by mouth | | 0 | | | Activ | | (COLACE) 250 MG | 2 times daily. | | | | | e | | capsule | | | | | | | + + + +---------+------+------+-------+ | magnesium oxide | Take 840 mg by mouth | | 0 | | | Activ | | (MAOX) 420 MG TABS | Daily. | | | | | e | + + + +---------+------+------+-------+ | metformin | Take 1,000 mg by | | 0 | | | Activ | | (GLUCOPHAGE) 1000 MG | mouth 2 times daily | | | | | e | | tablet | (with breakfast & | | | | | | | | dinner). | | | | | | + + + +---------+------+------+-------+ | senna (SENOKOT) | Take 1 tablet by | | 0 | | | Activ | | 8.6 mg tablet | mouth Daily. | | | | | e | + + + +---------+------+------+-------+ | simvastatin | Take 20 mg by mouth | | 0 | | | Activ | | (ZOCOR) 20 mg tablet | nightly. | | | | | e | + + + +---------+------+------+-------+ | traZODone | Take 150 mg by mouth | | 0 | | | Activ | | (DESYREL) 150 MG | nightly. | | | | | e | | tablet | | | | | | | + + + +---------+------+------+-------+ | MULTIPLE | Take 1 tablet by | | 0 | | | Activ | | VITAMINS-MINERALS PO | mouth Daily. | | | | | e | + + + +---------+------+------+-------+ | omeprazole | Take 20 mg by mouth | | 0 | | | Activ | | (PRILOSEC) 20 mg | 2 times daily. | | | | | e | | capsule | | | | | | | + + + +---------+------+------+-------+ | clopidogrel | Take 75 mg by mouth | | 0 | | | Activ | | (PLAVIX) 75 mg | Daily. | | | | | e | | tablet | | | | | | | + + + +---------+------+------+-------+ | clotrimazole | Apply topically 2 | | 0 | | | Activ | | (LOTRIMIN) 1% | times daily. | | | | | e | | external solution | | | | | | | + + + +---------+------+------+-------+ | cyanocobalamin | Take 1,000 mcg by | | 0 | | | Activ | | (VITAMIN B-12) 500 | mouth Daily. | | | | | e | | mcg tablet | | | | | | | + + + +---------+------+------+-------+ | fish oil 1,000 mg | Take 1,000 mg by | | 0 | | | Activ | | capsule | mouth 2 times daily. | | | | | e | + + + +---------+------+------+-------+ | gabapentin | Take 600 mg by mouth | | 0 | | | Activ | | (NEURONTIN) 300 mg | every 4 hours. For | | | | | e | | capsule | neuropathy and QUINTERO | | | | | | | | pain | | | | | | + + + +---------+------+------+-------+ | Lactobacillus | Take 1 capsule by | 30 | 0 | 09/2 | | Activ | | (PROBIOTIC | mouth 2 times daily. | capsule | | 8/20 | | e | | ACIDOPHILUS) CAPS | | | | 19 | | | + + + +---------+------+------+-------+ | lisinopril | Take 20 mg by mouth | | 0 | | | Activ | | (PRINIVIL, ZESTRIL) | Daily. | | | | | e | | 20 mg tablet | | | | | | | + + + +---------+------+------+-------+ | sildenafil | Take 50 mg by mouth | | 0 | | | Activ | | (VIAGRA) 100 MG | Daily as needed for | | | | | e | | tablet | Erectile | | | | | | | | Dysfunction. No more | | | | | | | | than 1 dose per | | | | | | | | day/4 per month | | | | | | + + + +---------+------+------+-------+ | cyclobenzaprine | Take 10 mg by mouth | | 0 | | | Activ | | (FLEXERIL) 10 mg | nightly as needed | | | | | e | | tablet | for Muscle spasms. | | | | | | + + + +---------+------+------+-------+ | naproxen | Take 250 mg by | | 0 | | | Activ | | (NAPROSYN) 250 mg | mouth. Every 8-12 | | | | | e | | tablet | hours as needed for | | | | | | | | pain | | | | | | + + + +---------+------+------+-------+ | naloxone (NARCAN) | 4 mg by Nasal route | | 0 | | | Activ | | 4 mg/nasal spray | as needed. [place] 1 | | | | | e | | | dose in nose as [...] Call 911. | | | | | | + + + +---------+------+------+-------+ | tamsulosin | Take 0.8 mg by mouth | | 0 | | | Activ | | (FLOMAX) 0.4 mg CAPS | Daily. For urinary | | | | | e | | | frequency/prostate | | | | | | + + + +---------+------+------+-------+ | nicotine | Place 1 patch onto | 30 | 0 | 12/1 | | Activ | | (NICODERM) 21 mg/24 | the skin Daily. | patch | | 7/20 | | e | | hr | | | | 19 | | | + + + +---------+------+------+-------+ | nicotine | One lozenge should | 72 | 0 | 12/1 | | Activ | | polacrilex (COMMIT) | be taken every 1 to | lozenge | | 6/20 | | e | | 4 MG lozenge | 2 hours for the | | | 19 | | | | | first 6 [...] 20 lozenges/day) | | | | | | + + + +---------+------+------+-------+ | Sodium Chloride | 10 mLs by IV Push | | 0 | 12/1 | | Activ | | Flush (NORMAL SALINE | route as needed | | | 7/20 | | e | | FLUSH IV) | (before and after IV | | | 19 | | | | | therapy). | | | | | | + + + +---------+------+------+-------+ | Heparin Lock Flush | 5 mLs by IV Push | | 0 | 12/1 | | Activ | | (HEPARIN, PORCINE, | route as needed | | | 7/20 | | e | | LOCK FLUSH IV) | (after IV therapy | | | 19 | | | | | and lab draw). | | | | | | + + + +---------+------+------+-------+ | FIBER ADULT | Take 1-2 tablets by | | 0 | 01/0 | | Activ | | GUMMIES PO | mouth Daily. | | | 6/20 | | e | | | | | | 20 | | | + + + +---------+------+------+-------+ | | Take 1 tablet by | 20 | 0 | 02/1 | | Activ | | HYDROcodone-acetamin | mouth 4 times daily | tablet | | 4/20 | | e | | ophen (NORCO) 10-325 | as needed for Pain. | | | 20 | | | | mg per tablet | | | | | | | + + + +---------+------+------+-------+ | metoprolol | Take 1 tablet by | | 0 | 02/1 | | Activ | | succinate | mouth Daily. | | | 4/20 | | e | | (TOPROL-XL) 50 mg 24 | | | | 20 | | | | hr tablet | | | | | | | + + + +---------+------+------+-------+ Active Problems + + + | Problem | Noted Date | + + + | PAD (peripheral artery disease) | 07/04/2019 | + + + + + | Overview: Added automatically from request for surgery | | [id number] | + + + + + | Osteomyelitis of third toe of left foot | 05/08/2019 | + + + | Cellulitis of third toe, left | 05/04/2019 | + + + + + | Overview: Cellulitis of Third, Fourth, and Fifth toe, left | | 05/04/2019 Amputation Left 3,4,5 Toes | + + + + + | Gangrene of toe of left foot | 05/04/2019 | + + + | Skin ulcer of toe of left foot with fat layer exposed | 02/16/2019 | + + + | Status post above knee amputation of right lower extremity | 11/28/2018 | + + + + + | Overview: Problem 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 | + + + + + | Decreased activities of daily living (ADL) | 08/18/2017 | + + + | Requires assistance with activities of daily living (ADL) | 08/18/2017 | + + + | Impaired mobility and ADLs | 08/18/2017 | + + + | Abnormality of gait and mobility | 08/18/2017 | + + + | Chronic pain of both shoulders | 08/18/2017 | + + + | Open wound of knee, leg, and ankle, with tendon involvement, | 08/18/2017 | | right, sequela | | + + + | History of UTI | 03/23/2017 | + + + | Amputation stump infection | 03/18/2017 | + + + | Hyponatremia | 11/30/2013 | + + + + + | Overview: Formatting of this note might be different from the | | original.Na Date Value Ref Range Status 05/04/2019 129 (L) 136 - | | 145 mmol/L Final 02/18/2019 134 (L) 136 - 145 mmol/L Final | | 02/17/2019 135 (L) 136 - 145 mmol/L Final | |02/18/2019 134 (L) 136 - 145 mmol/L Final | |02/17/2019 135 (L) 136 - 145 mmol/L Final | + + + + + | Smoker - Daily | 11/30/2013 | + + + | Marijuana use | 11/30/2013 | + + + | Alcohol use, Habitual | 11/30/2013 | + + + + + | Overview: 28 standard drinks per week (4x/day average) | + + + + + | Chronic pain | 11/30/2013 | + + + | H/O neck surgery | 11/30/2013 | + + + | Ileus - unclassified | 11/30/2013 | + + + | Hypertension | | + + + | Diabetes mellitus type II, ORAL Control | | + + + + + | Overview: Formatting of this note might be different from the | | original.See A1c HistoryHemoglobin A1c Date Value Ref Range | | Status 02/17/2019 6.3 (H) 4.3 - 6.0 % Final 03/20/2017 7.6 (H) | | 4.3 - 6.0 % Final | |02/17/2019 6.3 (H) 4.3 - 6.0 % Final | |03/20/2017 7.6 (H) 4.3 - 6.0 % Final | + + + +---+ | Depression | | + +---+ | Arrhythmia | | + +---+ | PTSD (post-traumatic stress disorder) | | + +---+ | Peripheral vascular disease | | + +---+ | GERD (gastroesophageal reflux disease) | | + +---+ | Epidermal cyst of face | | + +---+ | 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 - clopidogrel (PLAVIX) | | | | | + +---+ + + | Overview: clopidogrel (PLAVIX) | + + + +---+ | Beta Blockers - Daily Use | | + +---+ | JEANNIE Inhibitors - Daily Use | | + +---+ | Hypomagnesemia | | + +---+ | Uses wheelchair | | + +---+ | History of disarticulation of right hip | | + +---+ Encounters +--------+ + + + + | Date | Type | Specialty | Care Team | Description | +--------+ + + + + | 07/25/ | Hospital | Radiology | | No Show | | 2020 | Encounter | | | | +--------+ + + + + | 07/25/ | Telephone | Vascular Surgery | Madi Linares MD | Appointment (Cancel | 2019 | | | | 07/25) | +--------+ + + + + | 07/20/ | Office | Podiatry | Mustapha Wang, | Aftercare following | 2019 | Visit | | DPM | surgery of the | | | | | | musculoskeletal | | | | | | system (Primary Dx) | +--------+ + + + + | 07/12/ | Telephone | Vascular Surgery | Dannielle Carrasco, | Follow-up | | 2019 | | | Registrar Nurses' Registry | | +--------+ + + + + | 07/11/ | Telephone | Vascular Surgery | Madi Linares MD | Hospital Follow-up | 2019 | | | | (appointment) | +--------+ + + + + | 07/11/ | Telephone | Vascular Surgery | Dannielle Carrasco, | Follow-up | | 2019 | | | Registrar Nurses' Registry | | +--------+ + + + + | 07/10/ | Telephone | Vascular Surgery | Tenisha Polanco, | Follow-up | | 2020 | | | RN | | +--------+ + + + + | 07/05/ | Surgery | | Mustapha Wang, | AMPUTATION | | 2019 | | | DPM | TRANSMETATARSAL | +--------+ + + + + | 07/05/ | Anesthesia | | Dariusz Lacey, | | | 2020 | Event | | Wilder Meyers | | | | | | GIUSEPPE Araujo | | +--------+ + + + + | 07/04/ | Hospital | General Surgery | Madi Linares MD | Diabetes mellitus | | 2019 - | Encounter | | Mustapha Wang, | type II, ORAL | | | | | DPM Fabian Frias, | Control (Primary | | 07/07/ | | | Chaparro Jeffrey | Dx); PAD (peripheral | | 2019 | | | MD Lee | artery disease) | | | | | | ([facility]); Smoker - | | | | | | Daily; PAD | | | | | | (peripheral artery | | | | | | disease) ([facility]); | | | | | | Amputation stump | | | | | | infection ([facility]); | | | | | | Osteomyelitis of | | | | | | foot, left, acute | | | | | | ([facility]); Diabetes | | | | | | mellitus type II, | | | | | | non insulin | | | | | | dependent ([facility]); | | | | | | Smoker | +--------+ + + + + | 07/03/ | Telephone | Radiology | Madi Linares MD | Pre-Op | | 2019 | | | | | +--------+ + + + + | 06/26/ | Telephone | Vascular Surgery | Tenisha Polanco, | Procedure | | 2019 | | | RN | | +--------+ + + + + | 06/26/ | Telephone | Radiology | Madi Linares MD | | | 2019 | | | | | +--------+ + + + + | 06/22/ | Home Care | Home Health Services | Erika Flanagan, PT | CASE COMMUNICATION | | 2019 | Visit | | | | +--------+ + + + + | 06/21/ | Office | Vascular Surgery | Madi Linares MD | PAD (peripheral | | 2019 | Visit | | | artery disease) | | | | | | ([facility]) (Primary Dx); | | | | | | Critical lower limb | | | | | | ischemia | +--------+ + + + + | 06/21/ | Hospital | Radiology | | PAD (peripheral | | 2019 | Encounter | | | artery disease) | | | | | | (HCC) | +--------+ + + + + | 06/16/ | Home Care | Home Health Services | Bre Irvin RN | SN DISCHARGE ([place]) | 2019 | Visit | | | | +--------+ + + + + | 06/16/ | Telephone | Vascular Surgery | Dannielle Carrasco, | Consult | | 2019 | | | Registrar Nurses' Registry | | +--------+ + + + + from Last 3 Months Immunizations + + + + | Name | Administration Dates | Next Due | + + + + | INFLUENZA 67 Y OR >, | 03/10/2019, 03/10/2016 | | | TRIVALENT HIGH-DOSE | | | + + + + | INFLUENZA, | 02/23/2019, 09/01/2018, 03/24/2017, | | | UNSPECIFIED | 02/12/2015, 02/26/2014, 02/28/2013 | | | FORMULATION | | | + + + + | PNEUMOCOCCAL | 12/18/2014 | | | CONJUGATE 13-VALENT | | | | (PCV13) | | | + + + + | PNEUMOCOCCAL | 02/11/2016, 05/26/2013 | | | POLYSACCHARIDE | | | | 23-VALENT (PPSV23) | | | + + + + Social History + [...] recent travel history available. | + + Last Filed Vital Signs + [...] | | + + + + + Plan of Treatment + + + + + | Health Maintenance | Due Date | Last Done | Comments | + + + + + | Hepatitis C | | | | | Screening | 8 | | | + + + + + | Vaccine: | | | | | Dtap/Tdap/Td (1 - | 9 | | | | Tdap) | | | | + + + + + | Diabetic Eye Exam | | | | | | 6 | | | + + + + + | Diabetic Foot Exam | | | | | | 6 | | | + + + + + | Colorectal Cancer | | | | | Screening | 8 | | | | (Colonoscopy) | | | | + + + + + | Vaccine: Zoster (1 | | | | | of 2) | 8 | | | + + + + + | Lung Cancer | | | | | Screening | 3 | | | + + + + + | Adult Annual | | | | | Wellness Visit | 5 | | | + + + + + | Hemoglobin A1c | | 05/05/2019, 02/17/2019, | | | Screening | 0 | 03/20/2017 | | + + + + + | AAA Screening | Completed | 11/28/2013 | | + + + + + | Vaccine: | Completed | 02/11/2016, 12/18/2014, | | | Pneumococcal 65+ | | 05/26/2013 | | + + + + + | Vaccine: Influenza | Completed | 03/10/2019, 02/23/2019, | | | | | 09/01/2018, Additional history | | | | | exists | | + + + + + Procedures + +--------+ + + + | [...] | | | PST | ([facility]) Diabetes | results section. | | [...] | | | PST | ([facility]) Diabetes | | | | | | mellitus type II, | | | | | | non insulin | | | | | | dependent ([facility]) | | | | | | [...] the | | | | PST | (HCC) | results section. | + [...] | MULTI LEVEL | | PST | ([facility]) | results section. | + +--------+ + + + from Last 3 Months Results POC Glucose (07/07/2019 7:39 AM PST)Only the most recent of 8 results within the time susan od is included. + + + + + + | Component | Value | Ref Range | Performed | Pathologist | | | | | At | Signature | + + + + + + | Glucose, | 134 (H)Comment: Testing | 65 - 99 mg/dL | KR | | | POC | performed at [facility] | | [facility] | | | | [address];[place], [place] | | | | | | [address] | | | | + + + + + + + + | Specimen | + + | | + + + + + + + | Performing | Address | City/State/Zipcode | Phone Number | | Organization | | | | + + + + + | [facility] | [address] | [place] [address] | [phone] | + + + + + Basic Metabolic Panel (07/07/2019 4:18 AM [facility])Only the most recent of 3 results within the time period is included. + + + + + + | [...] | >60Comment: GFR <60: | >60 | [facility] | | | GFR | CHRONIC KIDNEY [...] | | | | | | MDRD IDMT traceable | | | | | | equation.Testing | | | | | | performed at [facility] | | | | | | [facility];[place], [place] | | | | | | [address] | | | | + + + + + + + + | Specimen | + + | Blood | + + + + + + + | Performing | Address | City/State/Zipcode | Phone Number | | Organization | | | | + + + + + | [facility] | [address] | [place] [address] | [phone] | + + + + + XR [...] | | | + +---------+ + + Surgical Pathology Exam (07/05/2019 4:22 [...] red and focally | | | friable. Machine Etcher sections are submitted as follows:(A1) | | | Metatarsal bone margins following decalcification(A2) Perpendicular | | | sections of ulceration and skin margin(A3) Middle two metatarsal heads | | | following decalcification(A4) Machine Etcher sections of skin | | | margin.SS [...] | | technical component was performed by [employer] [address] [place] [address] | | | [place] [address] (Grazing Examiner: Amirah Garcia MD; CLIA# | | | [id number]). Professional interpretation was performed [facility] | | | [employer], | | | [place] [address] (Grazing Examiner: Mustapha Woods M.D.; CLIA#: | | | [id number]). Diagnostician: Merlin Johnson MD. | | | MPHPathologistElectronically Signed 07/07/2019 | | | | | |PERFORMING LABORATORY: | | |The technical component was performed by [employer] [address] [place] [address] (Grazing Examiner: Amirah Garcia MD; CLIA# [id number]). Professional interpretation was performed by | | |[employer] [address] [address] (Grazing Examiner: Mustapha Woods M.D.; CLIA#: [id number]). | | | | | |Diagnostician: Merlin [...] | | | + +---------+ + + Nerve Block (07/05/2019 4:16 PM PST) + [...] provider: Dariusz Lacey MD Authorizing provider: Dariusz Lacey, | | | MD | | + + + MRSA NAAT (07/05/2019 1:36 PM PST) + + + + + + | Component | Value | Ref Range | Performed | Pathologist | | | | | At | Signature | + + + + + + | SOURCE: | AB[facility]I(NOSE) | | [facility] | | | | | | LABORATORY | | + + + + + + | Result | NEGATIVEComment: Testing | MRSNEG | [facility] | | | | performed at [facility];[address] | | LABORATORY | | | | [address];[place] | | | | | | [address] | | | | + + + + + + + + | Specimen | + + | Tissue - Both | | anterior nares (body | | structure) | + + + + + + + | Performing | Address | City/State/Zipcode | Phone Number | | Organization | | | | + + + + + | [facility] | [address] | [place] [address] | [phone] | + + + + + CBC [...] | | | Absolute | performed at [facility];[address] | [address] | LABORATORY | | | | [address];[place] | | | | | | [address] | | | | + + + + + + + + | Specimen | + + | Blood | + + + + + + + | Performing | Address | City/State/Zipcode | Phone Number | | Organization | | | | + + + + + | [facility] | [address] | [place] [address] | [phone] | + + + + + IR Angiogram Lower Extremity Left (07/04/2019 1:50 PM PST) + + | Specimen | + + | | + + + + --+ | Narrative | Performed At | + + --+ | [facility] | [facility] | | [facility] V[facility] SurgeryProcedure Note | | | NAME: Paul Bunn MR #: [id number]: [id number] DATE OF | | | PROCEDURE: 07/04/2019SURGEON: Madi Linares [facility]ITALISTANT: None | | | PREOPERATIVE DIAGNOSIS:1. 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 Using [...] catheter and wire was removed. The 5 [place] sheath was removed and | | | [...] Vascular Surgery Dictation software, | | | ugichem, used which may contain error for similar [...] to pass and a 5 | | |Mal[place]ian sheath was placed. Using a Glidewire and [...] catheter and wire was removed. The 5 [place] sheath was removed and | | |the [...] | | | | | |Dictation software, ugichem, used which may contain error for similar | | |sounding words even after review. Personal communication requested for any | | |clarification. | | | | | | | | | | | | | | | | | + + --+ + +---------+ + + | Performing | Address | City/State/[facility] | Phone Number | | Organization | | | | + +---------+ + + | [facility] | | | | + +---------+ + + CBC no Differential (07/04/2019 9:15 [...] [facility] | | | | performed at [facility];[address] | | LABORATORY | | | | [address];[place] | | | | | | [address] | | | | + + + + + + + + | Specimen | + + | Blood | + + + + + + + | Performing | Address | City/State/Zipcode | Phone Number | | Organization | | | | + + + + + | [facility] | [address] | [place] [address] | [phone] | + + + + + VAS Lwr Ext Art Rt w BERT Multi Lvl (06/21/2019 3:38 PM PST) + + | Specimen | + + | | + + + + + | Impressions | Performed At | + + + | 1. Biphasic ANALYTICS SENIOR MANAGER inflow. 2. Tandem stenosis SFA. >50% stenosis [...] Diagnosis, Cristobal, | | | [employer], 2002, [place]) Signed by: Lavon Villarreal Shawn | | [...] | | waveform analysis: Left lower extremity: ANALYTICS SENIOR MANAGER prox: 254, biphasic | | | DFA prox: 270, biphasic SFA prox: 307, monophasic SFA dist: 253, | | | monophasic Pop mid: 36, monophasic PIETER prox: 43, monophasic PIETER | | | dist: 21, monophasic MATERIALS PLANNER/PRODUCTION PLANNER prox: 39, monophasic MATERIALS PLANNER/PRODUCTION PLANNER dist: 28, | | | monophasic Peroneal [...] + + | Gordy, Rad Results In 06/22/2019 12:30 PM PST | [...] | | Left lower extremity: | | ANALYTICS SENIOR MANAGER prox: 254, biphasic | | DFA prox: 270, biphasic | | SFA prox: 307, monophasic | | SFA dist: 253, monophasic | | Pop mid: 36, monophasic | | PIETER prox: 43, monophasic | | PIETER dist: 21, monophasic | | MATERIALS PLANNER/PRODUCTION PLANNER prox: 39, monophasic | | MATERIALS PLANNER/PRODUCTION PLANNER dist: 28, monophasic | | Peroneal prox: [...] | | IMPRESSION: | | 1. Biphasic ANALYTICS SENIOR MANAGER inflow. | | 2. Tandem stenosis SFA. [...] <0.30 Critical | | (Noninvasive Vascular Diagnosis, Cristobal, [employer], 2002, [place]) | | | | | | | | Signed by: Lavon Villarreal Shawn | | Sign Date/Time: 06/22/2019 12:26 PM | + + + +---------+ + + | Performing | Address | City/State/[facility] | Phone Number | | Organization | | | | + +---------+ + + | [facility] | | | | + +---------+ + + from Last 3 Months Insurance + +--------+ +--------+ +---------+--------+ | Payer | Benefi | Subscriber | Effect | Phone | Address | Type | | | t Plan | ID | ignacia | | | | | | / | | Dates | | | | | | Group | | | | | | + +--------+ +--------+ +---------+--------+ | [employer] [place] | [id number] | | | | Ind[place] | | | CHOICE | | 020-Pr | | | ity | | | PC3 | | esent | | | | + +--------+ +--------+ +---------+--------+ | [employer] | [place] | [id number] | | | | Indemn | | | NS | | 018-Pr | | | ity | | | ADMIN | | esent | | | | | | [place] | | | | | | | | [place] | | | | | | + +--------+ +--------+ +---------+--------+ | [employer] [place] | [id number] | | | | Indemn | | | CHOICE | | 016-Pr | | | ity | | | PC3 | | esent | | | | + +--------+ +--------+ +---------+--------+ | MEDICARE | MEDICA | [id number] | 08/23/19 | [phone] | | Medica | | | RE | | 12-Pre | 5 | | re | | | PART A | | sent | | | | + +--------+ +--------+ +---------+--------+ | MEDICARE | MEDICA | [id number] | 03/17/ | [phone] | | Medica | | | RE | | 2016-P | 5 | | re | | | PART A | | resent | | | | + +--------+ +--------+ +---------+--------+ + +--------+ +--------+ + + | Guarantor Name | Accoun | Relation to | Date | Phone | Billing Address | | | t Type | Patient | of | | | | | | | | | | + +--------+ +--------+ + + | Paul Bunn | Person | Self [birth year] | [address] | | | al/Fam | | 1946 | [phone] | [place] [address] | | | petr | | | 4 (Home) | | + +--------+ +--------+ + + | Paul Bunn Santos | Person | Self [birth year] | [address] | | | al/Fam | | 1946 | [phone] | [place] [address] | | | petr | | | 4 (Home) | | + +--------+ +--------+ + + Advance Directives + + + + + | Type | Date Recorded | Patient | Explanation | | | | Machine Etcher | | + + + + + | Power of | | | | | Adoption Agent | | | | + + + + + | Advance | 11/28/2013 5:45 | | | | Directive | PM | | | + + + + + + + + + + | Code Status | Date | Date | Comments | | | Activated | Inactivated | | + + + + + | Full Code | 07/05/2019 | 07/07/2019 | | | | 6:00 PM | 2:49 PM | | + + + + + + + + +---+ | | | | | + + + +---+ | Full Code | 05/04/2019 | 05/08/2019 | | | | 11:38 PM | 7:39 PM | | + + + +---+ + + + +---+ | | | | | + + + +---+ | Full Code | 02/16/2019 | 02/18/2019 | | | | 5:31 PM | 4:10 PM | | + + + +---+ + + + +---+ | | | | | + + + +---+ | Full Code | 03/18/2017 | 03/20/2017 | | | | 2:32 PM | 4:28 PM | | + + + +---+ + + + +---+ | | | | | + + + +---+ | Full Code | 11/28/2013 | 12/03/2013 | | | | 7:05 PM | 5:05 PM | | + + + +---+
--- OUTSIDE RECORDS SUMMARY | ~2019-09-14 | XMS | Encounter Summary ---
Demographics + + + | Address | [address] | | | [place] [address] | + + + | Home Phone | | + + + | Preferred Language | Unknown | + + + | Marital Status | Single | + + + | Zoroastrian Affiliation | Unknown | + + + | Race | Unknown | + + + | Ethnic Group | Unknown | + + + Author + + + | Author | [facility] | | | and [facility] | + + + | Organization | [facility] | | [...] | | | | | [place] [address] | | + + + + + Care Team Providers + +------+ + | Care Floor Grinder Name | Role | Phone | + +------+ + PCP | Unavailable | + +------+ + Encounter Details +--------+ + + + + | Date | Type | Department | Care Team | Description | +--------+ + + + + | 08/08/ | Hospital | [facility] | Conversion | 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
--- OUTSIDE RECORDS SUMMARY | ~2019-09-14 | XMS | Encounter Summary ---
Demographics + + + | Address | [address] | | | [place] [address] | + + + | Home Phone | | + + + | Preferred Language | Unknown | + + + | Marital Status | Single | + + + | Restorationist Affiliation | Unknown | + + + | Race | Unknown | + + + | Ethnic Group | Unknown | + + + Author + + + | Author | [facility] | | | and [facility] | + + + | Organization | [facility] | | | [...] | | | | | [place] [address] | | + + + + + Care Team Providers + +------+ + | Care Agribusiness Professor Name | Role | Phone | [...] | | above knee | Fax: | NEOA [place], | | | | | ([facility]) | | [place] [address] | | | | | Abnormality | | Phone: | | | | | of gait | | [phone] | | | | | Procedures | | Fax: | | | | | Pt eval | | [phone] | | | | | -gait | | | +--------+--------+ + + + + Encounter Details +--------+---------+ + + + | Date | Type | Department | Care Team | Description | +--------+---------+ + + + | 12/19/ | Office | [facility] | Carol Ann Medrano, | Status post above | | 2019 | Visit | [facility] | PT [address] | knee amputation of | | | | [address] | [place], [place] | right lower | | | | [place] | [address] | extremity (HCC); | | | | [address] | | Abnormality of gait | | | | [phone] | | and mobility; | | | [...] Progress Notes Carol Ann Medrano, PT - 12/19/2018 1:00 PM PDTFormatting of this note might be different fro m the original. [facility] [address] [facility] [place] [address] Physical Therapy Daily Treatment Note Date: 12/19/2018 Patient Information Patient Name: Paul Bunn Date [...] (HCC) Date of Onset: 10/21/2018 Referring Provider: Rebecca Millard NP Rehab Precautions Office Visit from 11/28/2018 in [facility] Rehab Precautions Precautions ARTF Precautions Comments L eye blind Rehab Learning Style Office Visit from 11/28/2018 [facility] Learning Style Patient's Optimum Learning Style performance of task, listening Start Time: 1304 Stop time: 1350 Duration: 46 minutes Timed Treatment Codes: 46 minutes # of PT Visits to Date: 3 Subjective: Paul has been working with the hip stretches every day at home, strengthening his L calf with theraband- got a 5# ankle weight for long arc quads. He wants to try the treadmill tod ay, Daughter present and attentive at end of session, notes his gait pattern and stamina lo ok a lot better today. Objective: Collaboration and education re: lengthening of front of R hip - HEP supine, prone, sidelyin g, standing stretch and exercise Supine extending residual limb back towards mat Glut set supine Glut set with hip adduction sidelying L for R hip extension/ flexor stretching Standing at stable object with prosthesis on for lunge stretch, R to back Prone with therapist assist for pelvic rotation towards mat Transfer training, SBA to Mod I, rare cues for brake management Gait training with harness on treadmill- up to 0.3 mph- 65 seconds Full cues for pacing- frequent tactile cues Gait training with FWW 81 ft, 77 ft with gait belt, min A and fatigue at end of each tria l Mildly Decreased step length L achieves some step through with each step Minimal Circumduction R swing Prosthetic with knee locked position for stance stability Assessment: improved hip flexor and abductor length with good carryover to improved gait qu ality, Highly motivated/ good carryover with initial exercise recommendations, Requires knee lock ed position in prosthetic currently for stance stability Plan: R hip flexor and abductor stretching, R hip extension and adductor strengthening, HEP/ hour ly stretching/ ROM, gait and balance progression Electronically signed by: Carol Ann Medrano, PT, 12/19/2018 13:58 Patient Name: Paul Graham Sepideh/: 1945/ documented in this en counter Plan [...]
--- OUTSIDE RECORDS SUMMARY | ~2019-09-14 | XMS | Encounter Summary ---
Demographics + + + | Address | [address] | | | [place] [address] | + + + | Home Phone [...] [facility] | | [facility] | + + + | Organization [...] | | | | | [place] [address] | | + + + + + Care Team Providers + +------+ + | Care Preparator Name | Role | Phone | + [...] + + + + | 06/07/ | Lab | [facility] | Geoff Simpson | ammy Ruggiero | | 2019 | Requisition | [facility] | MD [address] | elsewhere classified | | | | [address] [place] | [place] | ([facility]); | | | | [place] | [place] [address] | Osteomyelitis, | | | | [address] | [phone] | unspecified ([facility]) | | | | [phone] | | | +--------+ + + + [...] + | CBC WITH | Routin | 06/07/2019 | Gangrene, not | Results for this | | DIFFERENTIAL | e | 11:30 AM | elsewhere classified | procedure are in the | | | | PST | ([facility]) | results section. | | | | | Osteomyelitis, | | | | | | unspecified (HCC) | | + +--------+ + + + | COMPREHENSIVE | Routin | 06/07/2019 | Gangrene, not | Results for this | | METABOLIC PANEL | e | 11:30 AM | elsewhere classified | procedure are in the | | | | PST | ([facility]) | results section. | | | | | Osteomyelitis, | | | | | | unspecified (HCC) | | + +--------+ + + + documented in this encounter Results Comprehensive Metabolic Panel (06/07/2019 11:30 AM PST) + + + + + + | Component | Value | Ref Range | Performed | Pathologist | | | | | At | Signature | + + + + + + | Na | 131 (L) | 136 - 145 | [facility] | | | | | mmol/L | [facility] | | | | | | MEDICAL | | | | | | CENTER - | | | | | | LABORATORY | | + + + + + + | K | 6.2 ()Comment: | 3.4 - 5.1 | [facility] | | | | Critical Result called | mmol/L | [facility] | | | | to and read back by [facility] | | MEDICAL | | | | ELLIE Lopez RN on | | CENTER - | | | | 06/07/2019 at 12:51 PM by | | LABORATORY | | | | Soraya Quiles | | | | + + + + + + | Cl | 100 | 98 - 107 mmol/L | [facility] [...] + + + + | Glucose | 204 (H) | 60 - 106 mg/dL | [facility] | | | | | | [facility] | | | | | | MEDICAL | | | | | | CENTER - | | | | | | LABORATORY | | + + + + + + | BUN | 9 | 9 - 23 mg/dL | [facility] | | | | | | [facility] | | | | | | MEDICAL | | | | | | CENTER - | | | | | | LABORATORY | | + + + + + + | Creatinine | 0.85 | 0.70 - 1.30 | [facility] | | | | | mg/dL | [facility] | | | | | | MEDICAL | | | | | | CENTER - | | | | | | LABORATORY | | + + + + + + | eGFR if not | >60Comment: GLOMERULAR | >=60 | [facility] | | | | FILTRATION | mL/min/1.73m2 | [facility] | | | [facility] | RATE,ESTIMATED | | MEDICAL | | | | mL/min/1.94n3Zlfw than | | CENTER - | | [...] + + + + | Calcium | 6.6 (L) | 8.7 - 10.4 | [facility] | | | | | mg/dL | [facility] | | | | | | MEDICAL | | | | | | CENTER - | | | | | | LABORATORY | | + + + + + + | Albumin | 3.6 | 3.2 - 4.8 g/dL | [facility] [...] + + + + | Total | 6.4 | 5.7 - 8.2 g/dL | [facility] | | | Protein | | | [facility] | | | | | | MEDICAL | | | | | | CENTER - | | | | | | LABORATORY | | + + + + + + | AST | 17 [...] + + + + | Alkaline | 112 | 46 - 116 U/L | [facility] [...] + + + + | BUN/Creatin | 10.6 | | [facility] | | | ine [...] NGUYEN. | [address] | [place] | [phone] | | [facility] | | [address] | | | - LABORATORY | | | | + + + + + CBC with Differential (06/07/2019 11:30 AM PST) + + + + + + | Component | Value | Ref Range | Performed | Pathologist | | | | | At | Signature | + + + + + + | WBC | 4.9 | 4.0 - 11.0 K/uL | [facility] | | | | | | [facility] | | | | | | MEDICAL | | | | | | CENTER - | | | | | | LABORATORY | | + + + + + + | RBC | 4.69 | 4.30 - 5.70 | [facility] | [...] + + + + | Hematocrit | 42.7 | 40.0 - 51.0 % | [facility] | | | | | | [facility] | | | | | | MEDICAL | | | | | | CENTER - | | | | | | LABORATORY | | + + + + + + | MCV | 91.0 | 83.0 - 101.0 fL | [facility] [...] + + + + | MCHC | 34.2 | 32.0 - 36.0 | [facility] | | | | | g/dL | [facility] | | | | | | MEDICAL | | | | | | CENTER - | | | | | | LABORATORY | | + + + + + + | RDW-CV | 14.2 | <15.0 % | [facility] | | | | | | [facility] | | | | | | MEDICAL | | | | | | CENTER - | | | | | | LABORATORY | | + + + + + + | RDW-SD | 47.4 (H) | 35.1 - 46.3 fL | [facility] | | | | | | [facility] | | | | | | MEDICAL | | | | | | CENTER - | | | | | | LABORATORY | | + + + + + + | Platelet | 192 | 140 - 440 K/uL | [facility] | | | Count | | | [facility] | | | | | | MEDICAL | | | | | | CENTER - | | | | | | LABORATORY | | + + + + + + | MPV | 12.7 (H) | 6.5 - 12.4 fL | [facility] | | | | | | [facility] | | | | | | MEDICAL | | | | | | CENTER - | | | | | | LABORATORY | | + + + + + + | % | 53.8 | 45.0 - 82.0 % | [facility] | | | Neutrophils | | | [facility] | | | | | | MEDICAL | | | | | | CENTER - | | | | | | LABORATORY | | + + + + + + | % | 36.9 | 20.0 - 45.0 % | [facility] [...] | | | | | | [facility] | | | | | | MEDICAL | | | | | | CENTER - | | | | | | LABORATORY | | + + + + + + | % | 1.2 | 0.0 - 5.0 % | [facility] | | | Eosinophils | | | [facility] | | | | | | MEDICAL | | | | | | CENTER - | | | | | | LABORATORY | | + + + + + + | % Basophils | 1.2 (H) | 0.0 - 1.0 % | [facility] | | | | | | [facility] | | | | | | MEDICAL | | | | | | CENTER - | | | | | | LABORATORY | | + + + + + + | % Immature | 0.4 | 0.0 - 0.4 % | [facility] | | | Granulocyte | | | [facility] | | | s | | | MEDICAL | | | | | | CENTER - | | | | | | LABORATORY | | + + + + + + | Absolute | 2.64 | 1.80 - 8.50 | [facility] | | | Neutrophils | | K/uL | [facility] | | | | | | MEDICAL | | | | | | CENTER - | | | | | | LABORATORY | | + + + + + + | Absolute | 1.81 | 0.60 - 3.20 | [facility] | | | Lymphocytes | | K/uL | [facility] | | | | | | MEDICAL | | | | | | CENTER - | | | | | | LABORATORY | | + + + + + + | Absolute | 0.32 | 0.00 - 1.00 | [facility] | [...] | Absolute | 0.06 | 0.00 - 0.10 | [facility] | | | Basophils | | K/uL | [facility] | | | | | | MEDICAL | | | | | | CENTER - | | | | | | LABORATORY | | + + + + + + | Absolute | 0.02 | 0.00 - 0.03 | [facility] | [...] [address] | [place] | [phone] | | [facility] | | [address] | | | - LABORATORY | | | | + + + + + documented in this encounter Visit Diagnoses + + | Diagnosis | + + | Gangrene, not elsewhere classified (HCC) | + + | Osteomyelitis, unspecified (HCC) | + + documented in this encounter"
--- OUTSIDE RECORDS SUMMARY | ~2019-09-14 | XMS | Encounter Summary ---
Demographics + + + | Address | [address] | | | [place] [address] | + + + | Home Phone | | + + + | Preferred Language | Unknown | + + + | Marital Status | Single | + + + | Samaritan Affiliation | Unknown | + + + | Race | Unknown | + + + | Ethnic Group | Unknown | + + + Author + + + | Author | [facility] | | | and [facility] | + + + | Organization | [facility] | | [...] | | | | | [place] [address] | | + + + + + Care Team Providers + +------+ + | Care Turpentine Distiller Name | Role | Phone | + +------+ + | Debora Butts | PCP | | + +------+ + Encounter Details +--------+ + + + + | Date | Type | Department | Care Team | Description | +--------+ + + + + | 06/21/ | Abstract | [facility] | Jb Solano, | Epidermal cyst of | | 2016 | | SURGERY [address] | , FACS [address] | face (Primary Dx) | | | | [place], [place] | [place], [place] | | | | | [address] | [address] | | | | | [phone] | | | +--------+ + + + [...] Diagnosis | + + | Epidermal cyst of face - Primary | + + documented in this encounter"
--- OUTSIDE RECORDS SUMMARY | ~2019-09-14 | XMS | Encounter Summary ---
Demographics + + + | Address | [address] | | | [place] [address] | + + + | Home Phone [...] Author + + + | Author | [facility] | | | and [facility] | + + + | Organization | [facility] | | [...] | | | | | [place] [address] | | + + + + + Care Team Providers + +------+ + | Care Coordinator Mining Products Name | Role | Phone | + [...] | above knee | Fax: | NEOA [place], | | | | | ([facility]) | | [place] [address] | | | | | Abnormality | | Phone: | | | | | of gait | | [phone] | | | | | Procedures | | Fax: | | | | | Pt eval | | [phone] | | | | | -gait | | | +--------+--------+ + + + + Encounter Details +--------+---------+ + + + | Date | Type | Department | Care Team | Description | +--------+---------+ + + + | 12/05/ | Office | [facility] | Carol Ann Medrano, | Status post above | | 2019 | Visit | [facility] | PT [address] | knee amputation of | | | | [address] | [place] | right lower | | | | [place] | [address] | extremity (HCC); | | | | [address] | | Abnormality of gait | | | | [phone] | | and mobility; | | | | | | Complete traumatic | | | | | | amputation at level | | | | | | between right hip | | | | | | and knee, sequela | | | | | | (HCC); Impaired | | | | | | mobility and ADLs; | | | | | | Chronic [...] Progress Notes Carol Ann Medrano, PT - 12/05/2018 1:00 PM PDTFormatting of this note might be different fro m the original. [facility] [address] [place] [address] Physical Therapy Daily Treatment Note Date: 12/05/2018 Patient Information Patient Name: Paul Bunn Date of : 1945 Age: 73 y.o. Encounter Diagnoses Code Name Primary? 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, sequela (HC C) Z74.09 Impaired mobility and ADLs M25.511, G89.29, M25.512 Chronic pain of both shoulders Z98.890 H/O neck surgery F43.10 PTSD (post-traumatic stress disorder) I73.9 Peripheral vascular disease (HCC) Date of Onset: 10/21/2018 Referring Provider: Rebecca Millard NP Rehab Precautions Office Visit from 11/28/2018 in [facility] Rehab Precautions Precautions ARTF Precautions Comments L eye blind Rehab Learning Style [facility] Learning [facility] Patient's Optimum Learning Style performance of task, listening Start Time: 1302 Stop time: 1405 Duration: 63 minutes Timed Treatment Codes: 63 minutes # of PT Visits to Date: 2 Subjective: Paul has been working with the theraband at home, strengthening his L calf, [place]- prost hetist is present to collaborate/ assess regarding prosthetic during gait work. Daughter pr esent and attentive- he tries to work his leg down straight at home but foam overlay on tyrell ress meets back of leg sooner than here on clinic on firm surface. Daughter works with him on standing with prosthetic leg/ stretching front of hip. He is able to walk the loop at th e park- estimated 500 steps, with 4-5 rest breaks dependent on the day. Objective: Collaboration and education re: regular lengthening of front of R hip throughout day Demo and practice with multiple methods Supine extending residual limb back towards mat Glut set supine Glut set with ball squeeze/ hip adduction sidelying R for R hip adduction sidelying L for R hip extension/ flexor stretching Standing at stable object with prosthesis on for lunge stretch, R to back Standing at stable object for pushing hips forward/ flexor lengthening, weight shifts Scooting towards end of mat for dropping residual limb off of mat/ hip flexor lengthening Ed and collaboration re: reclining in recliner to open front of R hip, progression to activ e hip extension/ pushing residual limb into chair for glut strengthening Ed and recommendation re: once an hour hip flexor lengthening during awake hours Daughter and pt. Verbalize good understanding Transfer training, SBA Gait training with FWW- 12 ft, 22 ft, 10 ft, 16 ft with gait belt, min A and fatigue at en d of each trial Decreased step length L Circumduction R swing R late stance/ early swing---rapid rebound into hip flexion with abduction/ circumduction Prosthetic with knee locked position for stance stability Assessment: Hip flexor and abductor tightness/ recoil early swing and preventing full step length L, im paired stamina with upright standing/ gait, R calf fatigue is a factor in gait stamina, Hig hly motivated/ good carryover with initial exercise recommendations, Requires knee locked p osition in prosthetic currently for stance stability, Hip flexor contracture is affecting g ait dynamics/ need for prosthetic modifications Plan: R hip flexor and abductor stretching, R hip extension and adductor strengthening, HEP/ hour ly stretching/ ROM, gait and balance progression Electronically signed by: Carol Ann Medrano PT, 12/05/2018 14:15 Patient Name: Paul Bunn/: 1945/ documented in this en counter Plan of Treatment Not on filedocumented as of this encounter Visit Diagnoses + + | Diagnosis | + + | Status post above knee amputation of right lower extremity | + + | Abnormality of gait and mobility Abnormality of gait | + + | 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
--- OUTSIDE RECORDS SUMMARY | ~2019-09-14 | XMS | Encounter Summary ---
Demographics + + + | Address | [address] | | | [place] [address] | + + + | Home Phone | | + + + | Preferred Language | Unknown | + + + | Marital Status | Single | + + + | Presybeterian Affiliation | Unknown | + + + [...] | | | | | [place] [address] | | + + + + + Care Team Providers + +------+ + | Care Consumer Banker Name | Role | Phone | + +------+ + | Rebecca Millard NP | PCP | | + +------+ + Reason for Visit + + + | Reason | Comments | + + + | Initial Assessment | [facility] | + + + Evaluate & Treat (Routine) +--------+--------+ + + + + | Status | Reason | Specialty | Diagnoses / | Referred By | Referred To | | | | | Procedures | Contact | Contact | +--------+--------+ + + + + | Closed | | Rehabilitatio | Diagnoses | Millard, | [facility] | | | | n | Unspecified | Rebecca, SYSTEMS APPLICATIONS PROGRAMMING LEAD | Pt Op [address] | | | | | open wound, | [address] | [address] | | | | | right knee, | RACHEL | [place], | | | | | sequela | [address] | [place] [address] | | | | | S81.001S | [place] | Phone: | | | | | Procedures | [address] | [phone] | | | | | wheelchair | Phone: | Fax: | | | | | eval | [phone] | [phone] | | | | | | Fax: | | | | | | | [phone] | | +--------+--------+ + + + + Encounter Details +--------+---------+ + + + | Date | Type | Department | Care Team | Description | +--------+---------+ + + + | 08/18/ | Office | [facility] | Rebecca Millard, SYSTEMS APPLICATIONS PROGRAMMING LEAD | Complete traumatic | | 2018 | Visit | [facility] | [address] | amputation at level | | | | OP [address] | [place] [address] | between right hip | | | | [place] | [phone] | and knee, initial | | | | [address] | | encounter (HCC) | | | | [phone] | Pierce Hollins | (Primary Dx); | | | | | P, PT [address] | Amputation stump | | | | | [address] [place] | infection (HCC); | | | | | [address] | Other chronic pain; | | | | | [phone] | Decreased activities | | | | | | of daily living | | | | | | (ADL); Requires | | | | | | assistance with | | | | | | activities of daily | | | | | | living (ADL); | | | | | | Impaired mobility | | | | | | and ADLs; | | | | | | Abnormality of gait | | | | | | and mobility; | | | | | | Chronic pain of both | | | | | | shoulders; Open | | | | | | wound of knee, leg, | | | | | | and ankle, with | | | | | | tendon involvement, | | | | | | right, sequela | +--------+---------+ + + + Social History [...] documented as of this encounter Progress Notes Pierce Hollins, PT - 08/18/2017 12:30 PM PDTFormatting of this note might be differen t from the original. [facility] THER[facility] PT OP [address] [place] [address] [facility] Physical Therapy / Mobility Assistive Equipment Evaluation Report Date: 08/18/2017 Patient Information Patient Name: Paul Bunn Date of : 1945 Age: 71 y.o. 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) Decreased Activities of Daily Living (Adl) Requires Assistance With Activities of Daily Living (Adl) Impaired Mobility and Adls Abnormality of Gait and Mobility Chronic Pain of Both Shoulders Open Wound of Knee, Leg, and Ankle, With Tendon Involvement, Right, Sequela Social History Social History Marital status: Single Spouse name: N/A Number of children: N/A Years of education: N/A Social History Main Topics Smoking status: Current Every Day Smoker Packs/day: 1.00 Types: Cigarettes Smokeless tobacco: Never Used Alcohol use Yes Comment: 4 times/week Drug use: Yes Frequency: 1.0 time per week Types: Marijuana Sexual activity: Not on file Other Topics Concern Not on file Social History Narrative No narrative on file Encounter Diagnoses Code Name Primary? S78.111A Complete traumatic amputation at level between right hip and knee, initial enc ounter (HCC) Yes T87.40 Amputation stump infection (HCC) G89.29 Other chronic pain Z78.9 Decreased activities of daily living (ADL) Z74.1 Requires assistance with activities of daily living (ADL) Z74.09 Impaired mobility and ADLs R26.9 Abnormality of gait and mobility M25.511, G89.29, M25.512 Chronic pain of both shoulders S81.001S, S81.801S, S91.001S, S86.891S Open wound of knee, leg, and ankle, with tendon involvement, right, sequela Date of Onset: 05/24/2010 approx date of first amputation, subsequent amputations have been o ngoing, leading up to R AKA last year. Referring Provider: Rebecca Millard NP No history on file. Past Medical History: [...] Laterality: N/A; Surgeon: Neisha Mcconnell MD; Location: [facility] MAIN OR LEG AMPUTATION AT HIP Right 01/2017 LEG AMPUTATION BELOW KNEE 2011 LEG SURGERY 1968 multiple bilateral leg surgeries TOE AMPUTATION great toe No family history on file. Developmental History Allergies Allergen Reactions Ketamine Other (See Comments) agitation Prior Treatment: None within the last sixty days Fall Risk: Fall Risk Tests (Only need to perform one test listed below) Timed Up and Go Score (TUG): (unable to walk, unable to complete gait related fall risk as sessments) Pain Assessment: Pain Scale Used: NUMERIC Location: R leg, back and arms Percent of Time Pain is Experienced: 51-75% Pain/Comfort Presence Of Pain: complains of pain/discomfort Preferred Pain Scale >=8 yrs: number (Numeric Rating Pain Scale) Pain Rating (0-10): Rest: 8 Pain Rating (0-10): Activity: 8 Subjective Information: Reason for Referral: Paul Bunn is a 71 y.o. yrs old Male referred to PT by Rebecca figueroa NP, for a wheelchair assessment. Patient Goals: 1. Safe positioning 2. Independent mobility 3. Restore functional independen ce 4. Use W/C to perform MRADLs, and IADLs. 5. Reduce falls. 6. Facilitate safe reaching for items in kitchen for ADLs Caregiver Goals: 1. Reduce caregiver burden 2. Increase safety 3. Facilitate increased qual ity of life for patient and family. 4. Allow pt to self mobilize in the community. Mobility Within the Home: Pt. reports currently uses a Ultralight wt manual WC to complete mobility related ADL's in the home (including toileting, dressing, etc). Living Situation: Lives with apartment hotel manager caregiver Has lived at this residence for approximately 5+ years. Caregiver Required: yes Description of residence: WC accessible home with ramp in [facility]. Current Seating/mobility: Chair: BonzerDarg K5 ultralight manual WC Approx Age: 10-12 months WC Cushion: General use comfort company Curve Approx Age: 10-12 months Positioning Components: none WC back: Sling Approx Age: 10-12 months Components in need of repair or replacement: none, chair is currently in working order, but not appropriate for independent ADLs for safety reasons. Other Equipment Owned/Used: ramp at home Orthotic/Prosthetic devices: none, pt used to have a prosthesis prior to R AKA. Transportation (car/van/bus/adapted WC lift/ambulance/other): SUV with hitch Objective Information: Cognitive Status: Alert and Oriented x 4 Basic Memory Skills: intact (intact or impaired) Problem Solving: intact Judgement: intact Attn/Concentration: intact Visual Status: intact Hearing: intact Risks and Benefits of functional assessment discussed with patient. Basic Strength Assessment R L Hand Dominance Yes Shoulder Flexion 4/5 4/5 Elbow Extension 4/5 4/5 Territory Account Executive 4/5 4/5 Hip Flexion 3/5 4/5 Knee Flexion NA 4/5 Knee Extension NA 4/5 Ankle Dorsiflexion NA 4/5 Ankle Plantarflexion NA 4/5 Strength or active mobility limitations: High R AKA Numbness on L foot, L great toe amputat ion Mat Evaluation: Head and Neck (Functional/Flexed/Extended/rotated/laterally flexed/hyperextended: functiona l Function (good/adequate/limited/absent/tone or reflex): adequate Fixed or flexible?: fixed Trunk (WFL/increased TS kyphosis/increased Lumbar Lordosis): slightly increased kyphosis Fixed or Flexible?: Fixed Spine (WFL/Convex Left/Convex Right): WFL Fixed or flexible?: flexible Seated Rotation (Neutral/Left fwd/Right fwd): slight R side rotation into R AKA side With R hip abd Pelvis Anterior/Posterior (Neutral/posterior tilt/anterior tilt): posterior Fixed or flexible? flexible Pelvic Obliquity (WFL/Left lower/Right lower): WFL Fixed or flexible? NA Pelvic Rotation (WFL/Right/Left): slight rotation to R, driven by R hip AKA with abd postur e Fixed or flexible? flexible Hips Positioning (Neutral/Abducted/Adducted): R abducted with high AKA Hips Windswept (Neutral/Right/Left): neutral Hip ROM limitations: RIGHT unable to discern LEFT WFL Knee ROM limitations: RIGHT NA LEFT WFL Foot/ankle ROM limitations: RIGHT NA LEFT WFL ADL Status Independent / Assist / Unable Assistance or Assistive Technology Equipment requi red Dressing independent Bathing assist Transfers and mobility assist Eating independent Grooming/Hygiene independent Toileting assist Transfer asssit Meal Prep assist Cannot perform ADLs in manual WC Home Management assist Cannot manage environment in manual WC Continent / Incontinent Bowel Management continent Bladder Management incontinent at times Soils cushion, pants due to urgency and unable to get to bathroom unassisted at times. Functional Mobility: Mobility Skills Independent / Assist / Unable / NA Comments: Bed to/from W/C assist Caregiver assist W/C to/from Commode assist Caregiver assist Ability to stand assist Caregiver assist, transfer pole at home Able to perform wt shifts independent Type: push up, side to side lean Ambulation NA Device: unable to walk or balance with A.D. Manual W/C propulsion assist Short distance only, no ADLs, cannot get across driveway or co mmunity Operate POV (scooter) with Tiller NA Unsafe to sit in swivel seat without R leg Operate power W/C with Std joystick Independent R swing away controller Operate power W/C with alt controls NA NA Hours spent sitting in W/C daily 8-10 All day user Balance: Sitting balance: good Standing balance: very poor, pivot transfer only Enxkr-Ia-tsz-Go: Unable to walk, unable to complete gait related functional mobility testing. Fall History: Patient self reports approximately 5 falls out of manual chair every month, t his totals approximately 60 falls per year average. Ambulation: Patient was unable to walk Factors limiting ambulation function: High above knee amputation with pain in shoulders, pr ohibiting use of walking aid Physical assessment: Height: 5 ft 9 inches Weight: 180 lbs Shortness of breath at rest: no Shortness of breath on exertion: yes Oxygen required: no Oxygen flow rate L/min:NA SpO2 (%):NT Sensation:impaired in LLE distal leg and foot, hypersensitive in groin and R stump, hx of o ld wounds and ulceration up to stage II reported History of Pressure Sores:yes If yes, location and stage: stage II in groin, stump and belo w buttock, ischium on R. Pitting edema: no Coordination: good Endurance:poor Patient Measurements: (all in inches) Hip width: 18 Shoulder width: 22 Chest width: 15.5 Seat to shoulders: 28 Seat to top of head: 34 Buttock to back of knee (upper leg): 20 on LLE Floor to back of knee (lower leg): 20 on LLE Foot length: 10 approx Clinical Criteria / Algorithm and Mobility determination questions: 1. Is there a mobility limitation causing an inability to safely participate in one or more Mobility Related Activities of Daily Living in a reasonable time frame? yes 2. Are there cognitive or sensory deficits (awareness/judegeemnt/vision/etc) that limite th e users ability to safely participate in one or more MRADLs or ADLs? yes Explanation: Leg se nsation impaired If yes, can it be accommodated/compensated for to allow use of a mobility assistive devic e to participate in MRADLs? yes Explanation: legs will not be required for PWC use. 3. Does the user demonstrate the ability or potential ability and willingness to safely use the mobility assistive device? yes 4. Can the mobility deficit be sufficiently resolved with only the use of a cane or walker? no Explanation: Pt is unable to walk, does not have R leg. 5. If a power W/C is recommended, does the user have sufficient function/abilities to use t he recommended equipment? yes Explanation: Clinical Trial completed 6. Does the users environment support the use of a: Power W/C: yes Explanation: home accomodates manual WC with width greater than 27 inches , PWC is less than 25 inches width. Assessment: Patient presents to wheelchair seating and mobility clinic and a ultralight manual wheelcha ir, accompanied by his caregiver. He reports that the majority of his problems stem from hi s inability to self propel at home and in the community for functional distances, due to imb alance in the chair, shoulder, elbow, hand, and wrist impairments related to self propulsion for community mobility. He reports that he falls out of the chair routinely due to imbalan ce both posteriorly and anteriorly since the loss of his right leg (R AKA). He reports that since the amputation he is at increased difficulty getting around the house as his left sandy t has a great toe amputation as well. This prohibits him from foot propelling the manual wh eelchair while performing ADLs and kitchen tasks, and performance of ADLs and use of his nash ds prohibits him from self-propelling the manual wheelchair for functional tasks. He now lazo s a part-time caregiver, who is present today, who may also be living with him and providing assistance, but he is upset that he cannot do things for himself and is requesting a power chair that will allow him to regain his independence safely. Rehabilitation potential: Patient demonstrates excellent potential to achieve established g oals and good potential to achieve prior status to address the documented impairments by par ticipating in skilled physical therapy services. Plan Date of Onset: 05/24/2010 Start of Care Date: 08/18/2017 Requested # of Visits: 2 visits for 1x WC eval, 1x final fitment and training Certification From: 08/18/2017 Certification To: 11/16/2017 Treatment Plan/Interventions PT [id number] - Therapeutic [id number] - Self Care/Home [id number] - Wheelch air Management Patient and/or family has indicated understanding of treatment needs and actively participa tj in the creation of this plan for care. Summary: Based on eval, recommend: Complex power mobility device: yes Why? Pt requires use of seat elevator for reaching to cupboards in kitchen for independence and solid seat ruvalcaba for cushion requirements. Comments: Add seat elevator and Roho Quattro select high profile cushion with SmartCheck inflation system with sensor ready valving. Clinical Trial of Recommended Device completed?: yes Powered Wheelchairs Operated by Their Users Modified Wheelchair Skills Test (mWST) Adapted from Version 4.2 Form # Training goal? Y/N Individual Skill Date: Score (0-2) 1 Moves controller/tiller away and back 2 2 Turns controller on and off [address] modes and speeds 2 4 Operates body positioning options TE 5 Disengages and engages motors TE 6 Operates creping machine operator helper TE 7 Rolls forward (10m) 2 8 Rolls backward (2m) 2 9 Turns while moving forward (90*) 2 10 Turns while moving backward (90*) [address] (180*) 2 12 Maneuvers sideways (0.5m) 2 13 Gets through hinged door 2 14 Reaches high object (1.5m) 2 15 Picks object up from floor 2 16 Relieves weight from buttocks (3 sec) 2 17 Transfers to and from bench 2 18 Rolls 100 m 2 19 Avoids moving obstacles 2 20 Ascends 5* incline 2 21 Descends 5* incline 2 22 Ascends 10* incline 2 23 Descends 10* incline 2 24 Rolls across side slope (5*) 2 25 Rolls on soft surface (2m) 2 26 Gets over gap (15 cm) 2 27 Gets over threshold (2 cm) 2 28 Ascends low curb (5 cm) TE 29 Descends low curb (5 cm) TE 30 Gets from ground to wheelchair TE TOTAL SCORE: 48 Scoring Options for Individual Skills Score Score What this means Pass 2 Task independently and safely accomplished without any difficulty. Pass with difficulty 1 The evaluation criteria are met, but the subject experienced some di fficulty worthy of note. Fail 0 Task incomplete or unsafe. Not possible SYSTEMS APPLICATIONS PROGRAMMING LEAD The wheelchair does not have the parts to allow this skill Testing Error TE Testing of the skill was not sufficiently well observed to provide a score . Comments: Was not able to trial seat elevator function during this visit. Today's Treatment Start Time: 1230 Stop time: 1330 Duration: 60 minutes Timed Treatment Codes: 30 minutes *At the time of scheduling PT eval, pt was given choice of local area vendors and was sched uled according to the patient's choice for given PT W/C eval date Vendor ATP present for PT eval: yes Vendor Name and Contact Info: Fran Atkinson from [facility] Patient/caregiver Education: Patient given demonstration and information about each one of the items recommended by PT. Vendor offering to follow-up with patient regarding his questi ons and secure appropriate demo as needed in corroboration with senior outside sales representative s in the area. Plan: PT is recommending a group 3 Invacare SP2 power wheelchair with seat elevator, right side mount swing away joystick controller, flat seat ruvalcaba with a Site9o Quattro select high pr ofile cushion with SmartCheck inflation system with sensor ready valving. In addition to th is, patient will need an electric highlander model hitch mounted wheelchair carrier from [facility] to transport his chair to and from [facility] for medical appointments and doctors lorraine guerra. Patient and/or family has indicated understanding of treatment needs and actively participa tj in the creation of this plan for care. 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 Paul Bunn is unable to ambulate or propel a manual chair to meet the m obility and self-care requirements for safe and optimal function in the home. He is unable to operate any type of wheelchair manually to meet the mobility and self-care requirements f or safe and optimal function in the home. His current power wheelchair is inoperable, and d oes not allow him to be functionally mobile in his home environment. Without a new power ch air, Paul Bunn will be continue to be dependent for mobility and pressure relief, and confined to bed or chair. Paul Bunn is physically and cognitively capable of safely operating the controls of a power chair and will use it as his primary means of mobility. D ue to Paul Bunn s size, body dimensions, medical conditions, and time spent in the chair per day, he requires a custom-sized and configured wheelchair to provide him with appr opriate fit and function. He requires programmable electronics for safe control of the cecy r within the home environment as his impaired motor function and ability to control his trun k when using standard parameters results in unsafe driving conditions. His mobility and pos itioning needs and severe upper extremity and trunk paralysis necessitate the use of special ty controls and adjustable parameters. These features are required for safe, independent m obility, independent pressure relief with a power tilt system, and accessing indoor and outd oor drive modes. These must be controlled by a single control interface, as Paul mckeon is physically unable to move between multiple input devices. This particular power base i s the least expensive, most appropriate option that will meet his mobility, positioning, and pressure relief needs. FOR POWER WHEELCHAIRS: Power seating: Power adjustable seat height: Paul Bunn requires the use of an elevating seat heig to allow him to perform ADL s, and to be independent in his home environment. He must use an elevating seat height to achieve optimal height for transfers by means of Mckenna lift, and to reach objects beyond his reach, allowing for participation in activities of daily li ving. He must be able to reach above counters to access items in his kitchen, and to prepar e meals. (With young children in the home, many objects must be placed out of their reach, r equiring him to have access to those objects, which he cannot do without the ability to elev ate his seat. The elevating seat is also beneficial in assisting him with transferring to barry rfaces of varying heights, such as getting into bed, onto the commode, and into the car. ) ( The recommended horizontal tilt system has the option of a 10 inch seat elevation, which will allow the user to elevate the seat for greater visibility in certain settings. It will also help the caregiver elevate Paul Bunn if it becomes necessary to change his trac heostomy or gastrostomy tube or to change his position. Raising him will result in less str ain on the caregiver.) Power Control interface: Hand controlled joystick: Paul Bunn has sufficient motor function to operate the p [employer]MeiWeier wheelchair by means of hand-controlled joystick. Retractable joystick mount: Required in order to move the joystick out of the transfer sp noel, and allow close access to sinks and tables for ADL performance. Power Supply: Heavy duty group 34 gel batteries (2): These batteries have sufficient capacity to handle the functional demands of a full-time user. This capacity is necessary to provide sufficie nt power for sustained use of the wheelchair. Wheelchair accessories: Wheelchair transport brackets: Necessary for the chair to be properly secured in a vehicl e for transport. Cantilever style, adjustable height armrests: Armrests are necessary to support the shoul brooks joint and surrounding structures. Lack of arm support can result in chronic stretch and damage of the joint capsule, ligaments, nerves, and blood vessels. Paul Bunn requir es the use of height adjustable armrests to achieve the proper armrest height for his should ers to be adequately supported. Standard footplates: The standard footplates are adequate to provide support to Paul Bunn s feet. Positioning components: Push button positioning belt: Paul Bunn has impaired postural control, resulting i n unstable positioning in the wheelchair. The use of a positioning belt at the hip maintain s his safe position in chair with good postural alignment, preventing his pelvis from moving posteriorly or sliding forward in the chair. Curved headrest with hardware: Paul Bunn has impaired neck and head control. He r equires the use of a headrest to provide support to the head and occipital area to maximize potential for speech, swallowing, breathing, head movement, and orientation to the environme nt. This low profile headrest allows for interaction visually within Paul Bunn s e nvironment by allowing upright head position and horizontal gaze. The midline position enab les full utilization of cervical muscle strength by maintaining proper muscle lengths. This headrest provides a point of stabilization to prevent excessive neck extension that inhibit s swallowing and breathing abilities. The recommended hardware is necessary for mounting of the headrest system. Adjustability allows specific positioning of the headrest to maximize speech, swallowing, breathing, head movement, and orientation to the environment. Wheelchair Seat Cushion: [id number] Skin protection and Positioning seat cushion, adjustable, less than 22 inches EverPower Quattro select high profile cushion with SmartCheck inflation system with sensor ready valving: As Paul Bunn sits in his wheelchair for more than 2 hours per day and brittany quently as many as 8 hours a day, a cushion is necessary for proper positioning and skin pro tection while seated in his wheelchair. He has impaired sensation and compromised skin inte grity secondary to the diagnoses listed previously. His current cushion does not reduce or equalize pressure, and will not allow for wound healing or maintenance of skin integrity onc e achieved. The EverPower Quadtro cushion provides low pressure and equalization of pressure. T his cushion consists of an air-filled rubber bladder in rows of 2 x 2 cells that are 4 high. A singular valve allows for full pad air circulation, allowing uniform and linear pressure distribution. With the closing of one flap, this cushion is divided into four com partments, each with its own air valve. This allows each compartment to be controlled indiv idually to correct/accommodate for Paul Bunn s pelvic asymmetries: . Air exchange occurs via flow of air between and amongst the cells. Air exchange assists in moisture redu ction; thus, preventing skin maceration and/or yeast infections, which disrupt skin integrit y. Mobility of the air cells does not compromise Paul Bunn's balance or stability du ring functional activities. A pump is provided for proper inflation and maintenance of the cushion. I am recommending the addition of the SmartCheAzooo inflation system with sensor ready valving so that the patient is immediately alerted to any malfunction or discrepancy in the inflation of the cushion, mainly because of the pain noted in his R hip with inadequate sup pport. Paul Bunn is able to use the recommended cushion appropriately, and has suffi cient cognitive, motivational, and physical abilities to do so. Wheelchair cushion/seat accessories: Adjustable solid seat: The use of this adjustable seat is necessary to offer Paul lemons proper positioning and a stable sitting surface while seated in his wheelchair. He is seated in the chair for more than two hours per day, typically up to 8 hours per day. The a djustable seat allows Paul Bunn to be positioned in increased tilt, without changing the wheelchair s center of gravity, which provides more appropriate positioning, especiall y helping to maintain a neutral pelvis during wheelchair mobility. It also provides a solid surface on which the cushion can be placed, enhancing the positioning characteristics of th e cushion. Wheelchair back support: [id number] General use back cushion less than 22 inches wide Elkin 2 or comparable back support: Paul Bunn has an unstable trunk position seconda ry to decreased trunk and upper extremity coordination and poor postural control. Standard back upholstery and linear seating orthoses are inadequate for postural support due to Jimmy Bunn s need for contoured support for symmetrical positioning. With an orthotic ba ck insert, Paul cox trunk is aligned and supported in a comfortable position. T his support increases his stability, safety, and potential for function, and decreases the l ikelihood of further skeletal deformity, skin breakdown from uneven pressure distribution, a nd respiratory compromise due to thoracic cage compression. The recommended orthosis simula smooth the contours of Paul Bunn s trunk and, with the addition of an external lateral support, provides additional lateral support to equally disperse pressure and provide stabi lity for positioning. The shape of the metal shell and closed cell foam base enhances postu re by accommodating, correcting, and refining positioning. Adjustability of the height and back angle is necessary to meet Paul Bunn s positioning, functional, and comfort ne eds. Wheelchair accessories: Lateral hip guide supports: These padded hip guides support the outside of the patients t highs and legs and promote asymmetrical posture and upright position. Because the patients R AKA is so high, he tends to sit with R hip abd and internal rotation, left unattended or un supported, this will lead to pelvic asymmetry and cause back pain to increase. They are nec essary to provide stabilization of the pelvis in the neutral position, by providing needed l umbar support, and posterolateral pelvic support. The contours can be adjusted as changes o ccur due to growth, positioning, comfort, and functional abilities. Other Mobility Related Devices: Misc: Snappy Chow WC carrier: [place] unreasonable to assume that his power wheelchair is capable of driving into town (his WC is not rated for this distance) for neccesary doctor visits, grocery shopping, and maintenance of his health and lifestyle. It is therefore a requirement, that he be provided with an elizabeth [employer] model hitch mounted wheelchair carrier from [facility] to transport his chair to and from town for medical appointments and doctors visits. Acquisition of the above stated equipment will not only improve functional mobility but can reduce the risk of further medical complications and injury. Please contact me at , or , with any questions regarding the wheelchair seat ing recommendations for this client. 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
--- OUTSIDE RECORDS SUMMARY | ~2019-09-14 | XMS | Encounter Summary ---
Demographics + + + | Address | [address] | | | [place] [address] | + + + | Home Phone | | + + + | Preferred Language | Unknown | + + + | Marital Status | Single | + + + | Lutheran Affiliation | Unknown | + + + | Race | Unknown | + + + | Ethnic Group | Unknown | + + + Author + + + | Author | [facility] | | | and [facility] | + + + | Organization | [facility] | | [...] | | | | | [place] [address] | | + + + + + Care Team Providers + +------+ + | Care Flue Dust Laborer Name | Role | Phone | + +------+ + | Shi Miramontes | PCP | | + +------+ + Encounter Details +--------+ + + + + | Date | Type | Department | Care Team | Description | +--------+ + + + + | 06/26/ | Telephone | [facility] | Madi Linares MD | | | 2019 | | CENTER CV INTRA OP | [address] | | | | | [address] | [address] | | | | | [facility] | [place] [address] | | | | | [address] | [phone] | | | | | [phone] | | | +--------+ + + + [...]
--- OUTSIDE RECORDS SUMMARY | ~2019-09-14 | XMS | Encounter Summary ---
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 [address] | [facility] | | | | | amputation | [address] | MEDICAL | | | | | stump (HCC) | [place], | CENTER [address] | | | | | Procedures | [place] [address] | [place] | | | | | [place] | Phone: | [place], | | | | | Angiogram | [phone] | [place] [address] | | | | | Lower | Fax: | Phone: | | | | | ExtRight w | [phone] | [phone] | | | | | Con CT | | Fax: | | | | | Angio Abd | | [phone] | | | | | Aorta Bilat | | | | | | | Fem Run W | | | | | | | Cont | | | +--------+--------+ + + + + Reason for Visit Diagnostic/Screening (Routine) +--------+--------+ + + + + | Status | Reason | Specialty | Diagnoses / | Referred By | Referred To | | | | | Procedures | Contact | Contact | +--------+--------+ + + + + | Closed | | Radiology | Diagnoses | [place]on, | [facility] | | | | | Non-healing | [place], | [place] | | | | | 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 | 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 [address] | [facility] [place] | | | | | amputation | [address] | MEDICAL | | | | | stump (HCC) | [place], | CENTER [address] | | | | | Procedures | [place] [address] | [place] | | | | | [place] | Phone: | [place], | | | | | Angiogram | [phone] | [place] [address] | | | | | Lower | Fax: | Phone: | | | | | ExtRight w | [phone] | [phone] | | | | | Con CT | | Fax: | | | | | Angio Abd | | [phone] | | | | | Aorta Bilat | | | | | | | Fem Run W | | | | | | | Cont | | | +--------+--------+ + + + + Encounter Details +--------+ + + + + | Date | Type | Department | Care Team | Description | +--------+ + + + + | 02/02/ | Hospital | [facility] | [place], | Non-healing wound of | | 2017 | Encounter | MED [facility] [address] | 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 | + +--------+ + + + documented in this encounter Results CT Angiogram Lower ExtRight w Con (02/02/2017 10:45 AM PDT) + + | Specimen | + + | | + + + +-------- -------+ | Narrative | Perform ed At | + +-------- -------+ | EXAM: CT | [facility] | | ANGIOGRAM LOWER EXTREMITY RIGHT W CONTRAST dated 02/02/2017 10:20 AM | | | HISTORY: Non-healing wound of amputation stump. COMPARISON: CT | | | abdomen and pelvis dated November 28, 2013. TECHNIQUE: Attempted | | | postcontrast imaging after the arterial timed injection of100 mL | | | Omnipaque 350. DOSE: DLP 370.21 mGy per centimeter FINDINGS: The | | | contrast bolus is very suboptimal. Timing was performed in a | | | typicalfashion however resulted in imaging of the distal aorta with | | | very minimalcontrast within the lumen and a small amount of contrast | | | in the common iliacarteries. There is no significant contrast within | | | the diseased right externaliliac artery, common femoral artery, or | | | superficial femoral artery to the rightlower extremity. 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 A vascular stent is seen | | | within the leftcommon iliac artery. There is not enough contrast seen | | | in the left extremity to evaluate disease inthat structure. There | | | are multiple stents in the superficial femoral artery onthe left. | | | There is no evidence for bone destruction at the amputation site. | | | There is mildsoft tissue irregularity which may correspond to the | | | described nonhealing wound. Degenerative anterolisthesis of L5 by | | | about 4 mm secondary to bilateral parsdefects. Slight retrolisthesis | | | of L4-L5. IMPRESSION - Nondiagnostic CT angiogram of the distal | | | abdominal aorta and lower extremitiesdue to non-arterial timing of the | | | contrast injection. Due to the amount ofcontrast utilized for a | | | repeat study cannot be performed at this time. Based onthe visible | | | vessel there does appear to be significant disease in the rightiliac | | | vessels. Dictated and Signed by: Gregory Yañez MD Electronically | | | signed: 02/02/2017 2:53 PM | | |There is no evidence for bone destruction at the amputation site. There is mild | | |soft tissue irregularity which may correspond to the described nonhealing wound. | | | | | |Degenerative anterolisthesis of L5 by about 4 mm secondary to bilateral pars | | |defects. Slight retrolisthesis of L4-L5. | | | | | |IMPRESSION - | | | | | |Nondiagnostic CT angiogram of the distal abdominal aorta and lower extremities | | |due to non-arterial timing of the contrast injection. Due to the amount of | | |contrast utilized for a repeat study cannot be performed at this time. Based on | | |the visible vessel there does appear to be significant disease in the right | | |iliac vessels. | | | | | |Dictated and Signed by: Gregory Yañez MD | | | Electronically signed: 02/02/2017 2:53 PM | | | | | + +-------- -------+ + + | Procedure Note | + + | Gordy, Rad Results In - 02/02/2017 2:56 PM PDT EXAM: CT ANGIOGRAM LOWER EXTREMITY | | RIGHT W CONTRAST dated 02/02/2017 10:20 AMHISTORY: Non-healing wound of amputation | | stump.COMPARISON: CT abdomen and pelvis dated November 28, 2013.TECHNIQUE: Attempted | | postcontrast imaging after the arterial timed injection of100 mL Omnipaque 350.DOSE: DLP | | 370.21 mGy per centimeterFINDINGS: The contrast bolus is very suboptimal. Timing was | | performed in a typicalfashion however resulted in imaging of the distal aorta with very | | minimalcontrast within the lumen and a small amount of contrast in the common | | iliacarteries. 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 A vascular stent is seen within the | | leftcommon iliac artery.There is not enough contrast seen in the left extremity to | | evaluate disease inthat structure. There are multiple stents in the superficial femoral | | artery onthe left.There is no evidence for bone destruction at the amputation site. | | There is mildsoft tissue irregularity which may correspond to the described nonhealing | | wound.Degenerative anterolisthesis of L5 by about 4 mm secondary to bilateral | | parsdefects. Slight retrolisthesis of L4-L5.IMPRESSION -Nondiagnostic CT angiogram of | | the distal abdominal aorta and lower extremitiesdue to non-arterial timing of the | | contrast injection. Due to the amount ofcontrast utilized for a repeat study cannot be | | performed at this time. Based onthe visible vessel there does appear to be significant | | disease in the rightiliac vessels.Dictated and Signed by: Gregory Yañez MD | | Electronically signed: 02/02/2017 2:53 PM | |common iliac artery. | | | |There is not enough contrast seen in the left extremity to evaluate disease in | |that structure. There are multiple stents in the superficial femoral artery on | |the left. | | | |There is no evidence for bone destruction at the amputation site. There is mild | |soft tissue irregularity which may correspond to the described nonhealing wound. | | | |Degenerative anterolisthesis of L5 by about 4 mm secondary to bilateral pars | |defects. Slight retrolisthesis of L4-L5. | | | |IMPRESSION - | | | |Nondiagnostic CT angiogram of the distal abdominal aorta and lower extremities | |due to non-arterial timing of the contrast injection. Due to the amount of | |contrast utilized for a repeat study cannot be performed at this time. Based on | |the visible vessel there does appear to be significant disease in the right | |iliac vessels. | | | |Dictated and Signed by: Gregory Yañez MD | | Electronically signed: 02/02/2017 2:53 PM | + + + +---------+ + + | Performing | Address | City/State/Zipcode | Phone Number | | Organization | | | | + +---------+ + + | [facility] | | | | + +---------+ + + documented in this encounter Visit Diagnoses + + | Diagnosis | + + | Non-healing wound of amputation stump (HCC) Other amputation stump complication | + + documented in this encounter Administered Medications + +--------+ +---------+------+------+ | Medication Order | MAR | Action | Dose | Rate | Site | | | Action | Date | | | | + +--------+ +---------+------+------+ | iohexol (OMNIPAQUE 350) 350 | Given | 02/03/20 | 100 mLs | | | | mg/mL injection 100 mL 100 mL, | | 17 10:36 | | | | | Intravenous, ONCE PRN, Other, for | | AM PDT | | | | | imaging CT study, Starting Tue | | | | | | | 02/02/17 at 1035, For 1 dose, | | | | | | | Radiology | | | | | | + +--------+ +---------+------+------+ +---+---+ | | | +---+---+ + +------+ +---------+-------+---+ | sodium chloride 0.9% (NS) bolus | Push | 02/03/20 | 150 mLs | 9000 | | | 150 mL 150 mL, Intravenous, | | 17 10:36 | | mL/hr | | | Administer over 1 Minutes, ONCE | | AM PDT | | | | | PRN, for imaging CT study, | | | | | | | Starting 02/02/17 at 1035, For | | | | | | | 1 dose, Radiology | | | | | | + +------+ +---------+-------+---+ +---+---+ | | | +---+---+ documented in this encounter
--- OUTSIDE RECORDS SUMMARY | ~2019-09-14 | XMS | Encounter Summary ---
Demographics + + + | Address | [address] | | | [place] [address] | + + + | Home Phone | | + + + | Preferred Language | Unknown | + + + | Marital Status | Single | + + + | Hindu Affiliation | Unknown | + + + | Race | Unknown | + + + | Ethnic Group | Unknown | + + + Author + + + | Author | [facility] | | | and [facility] | + + + | Organization | [facility] | | | [...] | | | | | [place] [address] | | + + + + + Care Team Providers + +------+ + | Care Project Management Director Name | Role | Phone | [...] | | | | | | foot ([facility]) | | | | | | | | | | +--------+--------+ + + + + Encounter Details +--------+---------+ + + + | Date | Type | Department | Care Team | Description | +--------+---------+ + + + | 05/04/ | Surgery | [facility] | Kaylyn Coreas, | LEFT 3RD, 4TH, AND | | 2019 | | [facility] OP | DPM [address] | 5TH TOE AMPUTATION | | | | [address] | [place] | | | | | [place] | [address] | | | | | [address] | [phone] | | | | | [phone] | | | +--------+---------+ + + + [...] might be differen t from the original. [place], [place] HOSPITALIST DISCHARGE SUMMARY Pt. Name/Age/: Valentina Bunn 73 y.o. 1945 Date of Admission: [...] 4 mg by Nasal route as needed. [place] 1 dose in nose as directed as [...] tablet Take 150 mg by mouth nightly. [facility]: [facility] COURSE: Please refer to the H&P for [...] bon e. [facility] was evaluated at the [facility] today, and he was referred to the [...] Specialty: Family Nurse Practitioner Contact information: [address] [facility] [address] Kaylyn Coreas DPM. Schedule an appointment as soon as possible for a visit on 05/11/20. Specialty: Podiatry Contact information: [address] [facility] [address] Condition: Patient being discharged with condition improved Diet:diabetic, fat and cholesterol modified Greater than 30 minutes were spent on discharge and coordination of post-hospital care. Electronically signed by: Efraín Wright MD, 05/12/2019 11:09 AM [facility] Portions of this chart may have been created with [employer] voice recognition software. Occasi onal wrong-word or [...] | 4 mg/nasal spray | as needed. [place] 1 | | | | | | [...] lozenge should | 72 | 0 | 05/08/ | | | polacrilex (COMMIT) | be [...] Surgery Progress Note Kaylyn Coreas DPM DPM Valentina Bunn Age/Gender 73 y.o. male Location [facility] Attending Val Jara MD Hosp Day [...] Procedure Component Value Units Date/Time Culture, Blood [[id number]] Collected: 05/06/19649 Order Status: Completed Lab Status: Preliminary result Updated: 05/06/191910 Specimen: Peripheral Blood Culture No growth: Monitored continually by instrument for 5 days Culture, Blood [[id number]] Collected: 05/06/19649 Order Status: Completed Lab Status: Preliminary result Updated: 05/06/191910 Specimen: Peripheral Blood Culture No growth: Monitored continually by instrument for 5 days Culture, Wound, Smear, w/Anaerobe [[id number]] Collected: 05/04/192208 Order Status: Sent Lab Status: In process Updated: 05/07/191104 Specimen: Tissue from Toe, Third, Left Narrative: The following orders were created for panel order Culture, Wound, Smear, w/Anaerobe. Procedure Abnormality Status --------- ------ Culture, Wound, Smear[[id number]] Final result Culture, Anaerobic[[id number]] Normal Preliminary result Please view results for these tests on the individual orders. Culture, Wound, Smear [[id number]] (Susceptibility) Collected: 05/04/192208 Order Status: Completed Lab [...] <=20 ug/mL Not Specified Final Culture, Anaerobic [[id number]] (Normal) Collected: 05/04/19 2209 Order Status: Completed Lab Status: Preliminary result Updated: 05/07/19 1456 Specimen: Tissue from Toe, Third, Left Culture Culture in progress... Culture, Blood [[id number]] Collected: 05/04/19 1631 Order Status: Completed Lab Status: Preliminary result Updated: 05/07/19 1641 Specimen: Blood from Line Culture No growth: Monitored continually by instrument for 5 days Culture, Blood [[id number]] (Abnormal) Collected: 05/04/19 1618 Order Status: Completed [...] Becerra. Blood Culture GP Pathogen Panel, PCR [[id number]] (Abnormal) Collected: 05/04/19 1618 Order Status: Completed [...] Detected vanB (vancomycin-resistance gene), DNA N/A Assessment: Valentina Bunn is a 73 y.o. male with [...] -If discharged will f/u on at [facility]. Kaylyn Coreas DPM 12:27 PM; 05/08/2019 Kaylyn Bajwa DPM - 05/07/2019 5:26 PM PST Foot & Ankle Surgery Progress Note Kaylyn Coreas DPM DPM Valentina Bunn Age/Gender 73 y.o. male Location [facility] Attending Val Jara MD Hosp Day [...] Procedure Component Value Units Date/Time Culture, Blood [[id number]] Collected: 05/06/19649 Order Status: Completed Lab Status: Preliminary result Updated: 05/06/191910 Specimen: Peripheral Blood Culture No growth: Monitored continually by instrument for 5 days Culture, Blood [[id number]] Collected: 05/06/19649 Order Status: Completed Lab Status: Preliminary result Updated: 05/06/191910 Specimen: Peripheral Blood Culture No growth: Monitored continually by instrument for 5 days Culture, Wound, Smear, w/Anaerobe [[id number]] Collected: 05/04/192208 Order Status: Sent Lab Status: In process Updated: 05/07/191104 Specimen: Tissue from Toe, Third, Left Narrative: The following orders were created for panel order Culture, Wound, Smear, w/Anaerobe. Procedure Abnormality Status --------- ------ Culture, Wound, Smear[[id number]] Final result Culture, Anaerobic[[id number]] Normal Preliminary result Please view results for these tests on the individual orders. Culture, Wound, Smear [[id number]] (Susceptibility) Collected: 05/04/192208 Order Status: Completed Lab [...] <=20 ug/mL Not Specified Final Culture, Anaerobic [[id number]] (Normal) Collected: 05/04/19 2209 Order Status: Completed Lab Status: Preliminary result Updated: 05/07/19 1456 Specimen: Tissue from Toe, Third, Left Culture Culture in progress... Culture, Blood [[id number]] Collected: 05/04/19 1631 Order Status: Completed Lab Status: Preliminary result Updated: 05/07/19 164 Specimen: Blood from Line Culture No growth: Monitored continually by instrument for 5 days Culture, Blood [[id number]] (Abnormal) Collected: 05/04/19 1618 Order Status: Completed [...] Becerra. Blood Culture GP Pathogen Panel, PCR [[id number]] (Abnormal) Collected: 05/04/19 1618 Order Status: Completed [...] Detected vanB (vancomycin-resistance gene), DNA N/A Assessment: Valentina Bunn is a 73 y.o. male with [...] might be different from the rut willem. [facility] [place] HOSPITALIST PROGRESS NOTE Patient: Valentina Bunn : 1945: Age: 73 y.o. MedRec: [id number] Admission date: 05/04/2019 Hospital day # : [...] the bone. [facility] was evaluated at [facility] today, and he was referred to the [...] Continue Zosyn - PICC line ordered - CM notified to set up home IV abx [...] statin # Smoker - 1-/2 ppd - cont nicotine patch and prn [...] Daily Val Jara MD 81 mg at 09 atorvaSTATin (LIPITOR) tablet 10 mg 10 mg [...] Efraín Wright MD 1 tablet at 05/07/19 181 insulin lispro (humaLOG KWIKPEN) injection (pen) 0-6 Units 0-6 Units Subcutaneous 4x D aily WC and HS Val Jara MD lisinopril (PRINIVIL, ZESTRIL) tablet 10 mg 10 mg Oral Daily Val Jara MD 10 mg at 05/07/19911 melatonin tablet 3 mg 3 mg Oral [...] mg Oral Nightly PRN Val Jara MD Current Infusions: dextrose 10% Objective [...] Procedure Component Value Units Date/Time Culture, Blood [[id number]] Collected: 05/06/19649 Order Status: Completed Lab Status: Preliminary result Updated: 05/06/191910 Specimen: Peripheral Blood Culture No growth: Monitored continually by instrument for 5 days Culture, Blood [[id number]] Collected: 05/06/19 0650 Order Status: Completed Lab Status: Preliminary result Updated: 05/06/191910 Specimen: Peripheral Blood Culture No growth: Monitored continually by instrument for 5 days Culture, Wound, Smear, w/Anaerobe [[id number]] Collected: 05/04/192208 Order Status: Sent Lab Status: In process Updated: 05/07/191104 Specimen: Tissue from Toe, Third, Left Narrative: The following orders were created for panel order Culture, Wound, Smear, w/Anaerobe. Procedure Abnormality Status --------- ------ Culture, Wound, Smear[[id number]] Final result Culture, Anaerobic[[id number]] Normal Preliminary result Please view results for these tests on the individual orders. Culture, Wound, Smear [[id number]] (Susceptibility) Collected: 05/04/192208 Order Status: Completed Lab [...] <=20 ug/mL Not Specified Final Culture, Anaerobic [[id number]] (Normal) Collected: 05/04/192208 Order Status: Completed Lab [...] superior vena cava. Dictated and Signed by: Jaxson Nettles MD Electronica lly signed: 05/07/2019 3:38 PM Vitals Ranges: Temp: [35.8 C (96.5 F)-37 C (98.6 F)] 36.7 C (98 F) Pulse: [65-86] 76 Resp: [19-21] 21 BP: (130-160)/(60-70) 130/64 Vitals: Temp: 36.7 C (98 F) BP: 130/64 Pulse: 76 Resp: 21 SpO2: 96 % SpO2 96 % on room air at flow rate L/min Efraín Wright MD 05/07/2019 7:53 PM [facility] Portions of this chart may have been created with [employer] voice recognition software. Occasi onal wrong-word or sound-alike substitutions may have occurred due to the inherent leigh itations of voice recognition software. Please read the chart carefully and recognize, using context, where these substitutions have occurred Efraín Peck MD - 05/06/2019 5:35 PM PSTFormatting of this note might be different from the origin al. [facility] [place] HOSPITALIST PROGRESS NOTE Patient: Valentina Bunn : 1945: Age: 73 y.o. MedRec: [id number] Admission date: 05/04/2019 Hospital day # : [...] the bone. [facility] was evaluated [facility] today, and he was referred to the [...] [facility]. Wound cultures will be [...] and NLF GNB, BCx 05/04 05/27 bottles growing GPC in clusters, repeat BCx [...] statin # Smoker - 1-/ ppd - counseled again today to quit, [...] Daily Val Jara MD 81 mg at 09 atorvaSTATin (LIPITOR) tablet 10 mg 10 mg Oral Nightly Val Jara MD 10 mg at 05/05/192009 calcium carbonate (TUMS) chewable tablet 1,000 mg 1,000 mg Oral Q4H PRN Val bautista MD clopidogrel (PLAVIX) tablet 75 mg 75 mg Oral Daily Val Jara MD 75 mg a t 05/06/19 0951 dextrose 50% injection 12.5-25 g 12.5-25 g [...] Q12H Anika York PharmNeisha 175 mL/hr at 05/06/19 1456 1,250 mg [...] Procedure Component Value Units Date/Time Culture, Blood [[id number]] Collected: 05/06/19649 Order Status: Sent Lab Status: In process Updated: 05/06/19655 Specimen: Peripheral Blood Culture, Blood [[id number]] Collected: 05/06/19649 Order Status: Sent Lab Status: In process Updated: 05/06/19655 Specimen: Peripheral Blood Culture, Wound, Smear, w/Anaerobe [[id number]] Collected: 05/04/192208 Order Status: Sent Lab Status: In process Updated: 05/04/192216 Specimen: Tissue from Toe, Third, Left Narrative: The following orders were created for panel order Culture, Wound, Smear, w/Anaerobe. Procedure Abnormality Status --------- ------ Culture, Wound, Smear[[id number]] Preliminary result Culture, Anaerobic[[id number]] In process Please view results for these tests on the individual orders. Culture, Wound, Smear [[id number]] Collected: 05/04/192208 Order Status: Completed Lab Status: Preliminary result Updated: 05/06/19 1220 Specimen: Tissue from Toe, Third, Left Culture 2+ Lactose Fermenting Gram Negative Bacilli Comment: Identification and susceptibility to follow. 1+ Non Fermenting Gram Negative Surya Comment: Identification and susceptibility to follow. Gram Stain Result 1+ White Blood Cells 2+ Epithelial cells 1+ Gram negative rods Culture, Anaerobic [[id number]] Collected: 05/04/192208 Order Status: Resulted Lab Status: In process Updated: 05/04/192216 Specimen: Tissue from Toe, Third, Left Culture, Blood [[id number]] Collected: 05/04/19 1631 Order Status: Completed Lab Status: Preliminary result Updated: 05/05/19 0441 Specimen: Blood from Line Culture No growth: Monitored continually by instrument for 5 days Culture, Blood [[id number]] (Abnormal) Collected: 05/04/191617 Order Status: Completed Lab Status: Preliminary result Updated: 05/06/19 0746 Specimen: Peripheral Blood Culture Positive Blood Culture Gram Stain Result Gram positive cocci in clusters Comment: 1 of 4 bottles positive. Critical Result called to and read back by Connie Alonzo on 05/06/2019 at 5:05 AM by Juan Becerra. Blood Culture GP Pathogen Panel, PCR [[id number]] (Abnormal) Collected: 05/04/191617 Order Status: Completed Lab Status: Final result [...] L/min Efraín Wright MD 05/06/2019 5:35 PM [facility] Portions of this chart may have been created with [employer] voice recognition software. Occasi onal wrong-word or sound-alike substitutions may have occurred due to the inherent leigh itations of voice recognition software. Please read the chart carefully and recognize, using context, where these substitutions have occurred Lizette Patel , PharmD - 05/06/2019 12:41 PM PSTFormatting of this note might be different from the origin al. VANCOMYCIN PER PHARMACY PROTOCOL: AMS/Drug Name - Vanco and Zosyn Patient: Valentina Bunn 434/434-01 Admit: 05/04/2019 3:30 PM RELEVANT [...] Procedure Component Value Units Date/Time Culture, Blood [[id number]] Collected: 05/06/19649 Order Status: Sent Lab Status: In process Updated: 05/06/19655 Specimen: Peripheral Blood Culture, Blood [[id number]] Collected: 05/06/19649 Order Status: Sent Lab Status: In process Updated: 05/06/19655 Specimen: Peripheral Blood Culture, Wound, Smear, w/Anaerobe [[id number]] Collected: 05/04/192208 Order Status: Sent Lab Status: In process Updated: 05/04/192216 Specimen: Tissue from Toe, Third, Left Narrative: The following orders were created for panel order Culture, Wound, Smear, w/Anaerobe. Procedure Abnormality Status --------- ------ Culture, Wound, Smear[[id number]] Preliminary result Culture, Anaerobic[[id number]] In process Please view results for these tests on the individual orders. Culture, Wound, Smear [[id number]] Collected: 05/04/192208 Order Status: Completed Lab Status: Preliminary result Updated: 05/06/19 122 Specimen: Tissue from Toe, Third, Left Culture 2+ Lactose Fermenting Gram Negative Bacilli Comment: Identification and susceptibility to follow. 1+ Non Fermenting Gram Negative Surya Comment: Identification and susceptibility to follow. Gram Stain Result 1+ White Blood Cells 2+ Epithelial cells 1+ Gram negative rods Culture, Anaerobic [[id number]] Collected: 05/04/192208 Order Status: Resulted Lab Status: In process Updated: 05/04/192216 Specimen: Tissue from Toe, Third, Left Culture, Blood [[id number]] Collected: 05/04/19 1631 Order Status: Completed Lab Status: Preliminary result Updated: 05/05/19 0441 Specimen: Blood from Line Culture No growth: Monitored continually by instrument for 5 days Culture, Blood [[id number]] (Abnormal) Collected: 05/04/19 161 Order Status: Completed Lab Status: Preliminary result Updated: 05/06/19 0746 Specimen: Peripheral Blood Culture Positive Blood Culture Gram Stain Result Gram positive cocci in clusters Comment: 1 of 4 bottles positive. Critical Result called to and read back by Connie Alonzo on 05/06/2019 at 5:05 AM by Juan Becerra. Blood Culture GP Pathogen Panel, PCR [[id number]] (Abnormal) Collected: 05/04/19 161 Order Status: Completed [...] and Monitoring Protocol Electronically signed by: Soraya Loredo, PharmD 05/06/2019 12:41 PM Merry Bajwa DPM - 05/05/2019 2:27 PM PST . Foot & Ankle Surgery Progress Note Kaylyn Coreas DPM DPM Valentina Bunn Age/Gender 73 y.o. male Location [facility] Attending Val Jara MD Hosp Day [...] Value Units Date/Time Culture, Wound, Smear, w/Anaerobe [[id number]] Collected: 05/04/192208 Order Status: Sent Lab Status: In process Updated: 05/04/192216 Specimen: Tissue from Toe, Third, Left Narrative: The following orders were created for panel order Culture, Wound, Smear, w/Anaerobe. Procedure Abnormality Status --------- ------ Culture, Wound, Smear[[id number]] Preliminary result Culture, Anaerobic[[id number]] In process Please view results for these tests on the individual orders. Culture, Wound, Smear [[id number]] Collected: 05/04/192208 Order Status: Completed Lab Status: Preliminary result Updated: 05/05/19 09 Specimen: Tissue from Toe, Third, Left Culture Young culture, reincubating 2+ Lactose Fermenting Gram Negative Bacilli Comment: Isolating for additional information. Gram Stain Result 1+ White Blood Cells 2+ Epithelial cells 1+ Gram negative rods Culture, Anaerobic [[id number]] Collected: 05/04/192208 Order Status: Resulted Lab Status: In process Updated: 05/04/192216 Specimen: Tissue from Toe, Third, Left Culture, Blood [[id number]] Collected: 05/04/19 1631 Order Status: Completed Lab Status: Preliminary result Updated: 05/05/19 0441 Specimen: Blood from Line Culture No growth: Monitored continually by instrument for 5 days Culture, Blood [[id number]] Collected: 05/04/19 1618 Order Status: Completed Lab Status: Preliminary result Updated: 05/05/19 0431 Specimen: Peripheral Blood Culture No growth: Monitored continually by instrument for 5 days Assessment: Valentina Bunn is a 73 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 Reviewed exam, surgery and plan with patient. We discussed the need to continue follow [facility] w [facility] to [...] Kaylyn Coreas DPM DPM 2:27 PM; 05/05/2019 hislaine Love, PharmD - 05/05/2019 11:02 AM PSTFormatting of this note might be different from the origi nal. VANCOMYCIN PER PHARMACY PROTOCOL: AMS/Drug Name - Vanco and Zosyn Patient: Valentina Bunn 434/434-01 Admit: 05/04/2019 3:30 PM RELEVANT [...] the bone. [facility] was evaluated [facility] today, and he was referred to the [...] Value Units Date/Time Culture, Wound, Smear, w/Anaerobe [[id number]] Collected: 05/04/192208 Order Status: Sent Lab Status: In process Updated: 05/04/192216 Specimen: Tissue from Toe, Third, Left Narrative: The following orders were created for panel order Culture, Wound, Smear, w/Anaerobe. Procedure Abnormality Status --------- ------ Culture, Wound, Smear[[id number]] Preliminary result Culture, Anaerobic[[id number]] In process Please view results for these tests on the individual orders. Culture, Wound, Smear [[id number]] Collected: 05/04/192208 Order Status: Completed Lab Status: Preliminary result Updated: 05/05/19 0947 Specimen: Tissue from Toe, Third, Left Culture Young culture, reincubating 2+ Lactose Fermenting Gram Negative Bacilli Comment: Isolating for additional information. Gram Stain Result 1+ White Blood Cells 2+ Epithelial cells 1+ Gram negative rods Culture, Anaerobic [[id number]] Collected: 05/04/192208 Order Status: Resulted Lab Status: In process Updated: 05/04/192216 Specimen: Tissue from Toe, Third, Left Culture, Blood [[id number]] Collected: 05/04/19 163 Order Status: Completed Lab Status: Preliminary result Updated: 05/05/19 044 Specimen: Blood from Line Culture No growth: Monitored continually by instrument for 5 days Culture, Blood [[id number]] Collected: 05/04/19 1618 Order Status: Completed Lab [...] C (97.3 F) Pulse: [71-104] 88 Resp: [1123] 16 BP: (104-223)/(43-125) 150/68 Recent Labs Lab [...] might be different from the rut willem. [facility] [place] HOSPITALIST PROGRESS NOTE Patient: Valentina Bunn : 1945: [facility]: 73 [id number] Admission date: 05/04/2019 Hospital day # : [...] the bone. [facility] was evaluated [facility] today, and he was referred to the [...] statin # Smoker - 1-1/2 ppd - counseled but patient pretty adamant [...] tablet Oral Q4H PRN Efraín Wright MD insulin lispro (humaLOG KWIKPEN) injection [...] 250 mL IVPB 1,250 mg Intravenous Q12H Priti KellyD 175 mL/hr at 05/05/19 0203 1,250 mg at 05/05/19 0203 vancomycin per pharmacy Other Pharmacy Consult Val Jara MD Current Infusions: dextrose 10% sodium chloride 0.9% 75 mL/hr at 05/05/19 0202 Objective Data Point of care glucose Recent Labs Lab 05/04/198 05/04/192039 POCGLU 121* 106 Labs last 24 hours [...] Value Units Date/Time Culture, Wound, Smear, w/Anaerobe [[id number]] Collected: 05/04/192208 Order Status: Sent Lab Status: In process Updated: 05/04/192216 Specimen: Tissue from Toe, Third, Left Narrative: The following orders were created for panel order Culture, Wound, Smear, w/Anaerobe. Procedure Abnormality Status --------- ------ Culture, Wound, Smear[[id number]] Preliminary result Culture, Anaerobic[[id number]] In process Please view results for these tests on the individual orders. Culture, Wound, Smear [[id number]] Collected: 05/04/192208 Order Status: Completed Lab Status: Preliminary result Updated: 05/05/19946 Specimen: Tissue from Toe, Third, Left Culture Young culture, reincubating 2+ Lactose Fermenting Gram Negative Bacilli Comment: Isolating for additional information. Gram Stain Result 1+ White Blood Cells 2+ Epithelial cells 1+ Gram negative rods Culture, Anaerobic [[id number]] Collected: 05/04/192208 Order Status: Resulted Lab Status: In process Updated: 05/04/192216 Specimen: Tissue from Toe, Third, Left Culture, Blood [[id number]] Collected: 05/04/19 1631 Order Status: Completed Lab Status: Preliminary result Updated: 05/05/19 0441 Specimen: Blood from Line Culture No growth: Monitored continually by instrument for 5 days Culture, Blood [[id number]] Collected: 05/04/19 1618 Order Status: Completed Lab [...] L/min Efraín Wright MD 05/05/2019 10:59 AM [facility] Portions of this chart may have been created with [employer] voice recognition software. Occasi onal wrong-word or [...] AMS/Drug Name - Vanco and Zosyn Patient: Valentina Bunn ED11/ED11 Admit: 05/04/2019 3:30 PM RELEVANT [...] Value Units Date/Time Culture, Wound, Smear, w/Anaerobe [[id number]] Collected: 05/04/192208 Order Status: Sent Lab Status: In process Updated: 05/04/192216 Specimen: Tissue from Toe, Third, Left Narrative: The following orders were created for panel order Culture, Wound, Smear, w/Anaerobe. Procedure Abnormality Status --------- ------ Culture, Wound, Smear[[id number]] In process Culture, Anaerobic[[id number]] In process Please view results for these tests on the individual orders. Culture, Wound, Smear [[id number]] Collected: 05/04/192208 Order Status: Sent Lab Status: In process Updated: 05/04/192216 Specimen: Tissue from Toe, Third, Left Culture, Anaerobic [[id number]] Collected: 05/04/192208 Order Status: Sent Lab Status: In process Updated: 05/04/192216 Specimen: Tissue from Toe, Third, Left Culture, Blood [[id number]] Collected: 05/04/19 1631 Order Status: Sent Lab Status: In process Updated: 05/04/19 1634 Specimen: Blood from Line Culture, Blood [[id number]] Collected: 05/04/19 1618 Order Status: Sent Lab Status: In process [...] Intake/Output Summary (Last 24 hours) at 05/04/2019 4137 Last data filed at 05/04/2019 2315 Gross [...] and Monitoring Protocol Electronically signed by: Lizette Kelly, PharmD 05/04/2019 6:37 PM documented in thi [...] of | Ordered: 05/08/2019 | | [facility] | Referral | e | left foot [...] | | | | | PST | ([facility]) | | + +--------+ + + + [...] | | | 2018 | | | 2:46 | | | [...] R?MRN: | | | | | | [id number] | | | [id number] | | | riteri | | | [...] | | | 2019 | | | 1-22 | | | HYDROC | | | [place]- | | | [facility]ET[facility] | | | [place] | | | 10-325 | | | MG | | | 112 | | | SHI | | | [place] | | | 2 40 | | | 2019 | | | 0-25 | | | HYDROC | | | [place]- | | | [facility]ET[facility] | | | IN | | | 10-325 | | | MG | | | 112 | | | SHI | | | [place] | | | 2 40 | | | 2019-0 | | | 9-27 | | | [...] | | | 2019-0 | | | 6-27 | | | HYDROC | | | [place]- | | | ACETAM | | | IN | | | 10-325 | | | MG | | | 112 | | | YANDEL | | | O | | | FERRAN | | | CO 2 | | | 40 | | | 2019-0 | | | 5-23 | | | HYDROC | | | [place]- | | | ACETAM | | | IN | | | [address] | | | MG | | | 112 | | | YANDEL | | | O | | | FERRAN | | | CO 2 | | | 40 | | | 2019-0 | | | 4-26 | | | HYDROC | | | ODONE- | | | [facility] | | | [place] | | | [address] | | | MG | | | 112 | | | YANDEL | | | O | | | FERRAN | | | CO 2 | | | 40 | | | 2019- | | | 3-26 | | | HYDROC | | | ODONE- | | | [facility] | | | [place] | | | [address] | | | MG | | | 112 | | | MARINA | | | BLUE | | | 2 40 | | | 2019- | | | 2-26 | | | [...] | | | 40 | | | 2018- | | | 2-28 | | | [...] | | | [id number] | | | [id number] | | | 99 | | | [...] 109 | 70 - 109 mg/dL | [facility] [...] + | [facility] | [address] | [place] | [phone] | | [facility] | | [address] | | | - LABORATORY | | [...] 1.32 (H) | 0.70 - 1.30 | [facility] | | | | | mg/dL | [facility] | | | | | | MEDICAL | | | | | | CENTER - | | | | | | LABORATORY | | + + + + + + | eGFR if not | 53 (L)Comment: | >=60 | [facility] | | | | GLOMERULAR FILTRATION | mL/min/1.73m2 | [facility] | | | [facility] | RATE,ESTIMATED | | MEDICAL | | | | mL/min/1.32w9Ssye than | | CENTER - | | [...] | | ine Ratio | | | [facility] | | | [...] [address] | [place] | [phone] | | [facility] | | [address] | | | - LABORATORY | | | | + + + + + CBC no Differential (05/08/2019 6:40 AM PST) + + + + + + | Component | Value | Ref Range | Performed | Pathologist | | | | | At | Signature | + + + + + + | WBC | 10.3 | 4.0 - 11.0 K/uL | [facility] [...] + | [facility] | [address] | [place] | [phone] | | [facility] | | [address] | | | - LABORATORY | | [...] ST. | [address] | [place] | [phone] | | [facility] | | [address] | | | - LABORATORY | | [...] [address] | [place] | [phone] | | [facility] | | [address] | | | - LABORATORY | | | | + + + + + POC Glucose (05/07/2019 6:54 AM PST) + +-------+ + + + | Component | Value | Ref Range | Performed | Pathologist | | | | | At | Signature | + +-------+ + + + | Glucose, | 101 | 70 - 109 mg/dL | [facility] [...] [address] | [place] | [phone] | | [facility] | | [address] | | | - LABORATORY | | [...] (L) | 9 - 23 mg/dL | [facility] | | | | | | [facility] | | | | | | MEDICAL | | | | | | CENTER - | | | | | | LABORATORY | | + + + + + + | Creatinine | 0.64 (L) | 0.70 - 1.30 | [facility] | | | | | mg/dL | [facility] | | | | | | MEDICAL | | | | | | CENTER - | | | | | | LABORATORY | | + + + + + + | eGFR if not | >60Comment: GLOMERULAR | >=60 | [facility] | | | | FILTRATION | mL/min/1.73m2 | [facility] | | | [facility] | RATE,ESTIMATED | | MEDICAL | | | | mL/min/1.28h2Aalf than | | CENTER - | | [...] | ine Ratio | | | [facility] | | [...] + | [facility] | [address] | [place] | [phone] | | [facility] | | [address] | | | - LABORATORY | | [...] | | | | | | [facility] | | | | | [...] + | [facility] | [address] | [place] | [phone] | | [facility] | | [address] | | | - LABORATORY | | [...] [address] | [place] | [phone] | | [facility] | | [address] | | | - LABORATORY | | [...] + | [facility] | [address] | [place] | [phone] | | [facility] | | [address] | | | - LABORATORY | | [...] | Last Dose | | | [facility] | | | | | | MEDICAL | | | | | | CENTER - | | | | | | LABORATORY | | + + + + + + | Time of | | | [facility] | | | Last Dose | | | [facility] | | [...] [address] | [place] | [phone] | | [facility] | | [address] | | | - LABORATORY | | [...] + | [facility] | [address] | [place] | [phone] | | [facility] | | [address] | | | - LABORATORY | | [...] [address] | [place] | [phone] | | [facility] | | [address] | | | - LABORATORY | | [...] + | [facility] | [address] | [place] | [phone] | | [facility] | | [address] | | | - LABORATORY | | [...] | | | | mmol/L | [facility] | | | | | [...] mL/min/1.73m2 | [facility] | | | [facility] | RATE,ESTIMATED | | MEDICAL | | | | mL/min/1.84y4Obao than | | CENTER - | | [...] + | [facility] | [address] | [place] | [phone] | | [facility] | | [address] | | | - LABORATORY | | [...] [address] | [place] | [phone] | | [facility] | | [address] | | | - LABORATORY | | [...] + | [facility] | [address] | [place] | [phone] | | [facility] | | [address] | | | - LABORATORY | | [...] | | POC | | | [facility] | | | | | [...] [address] | [place] | [phone] | | [facility] | | [address] | | | - LABORATORY | | [...] + | [facility] | [address] | [place] | [phone] | | [facility] | | [address] | | | - LABORATORY | | | | + + + + + Magnesium (05/05/2019 4:39 AM PST) + +-------+ + + + | Component | Value | Ref Range | Performed | Pathologist | | | | | At | Signature | + +-------+ + + + | Magnesium | 2.1 | 1.6 - 2.6 mg/dL | [facility] | | | | [...] [address] | [place] | [phone] | | [facility] | | [address] | | | - LABORATORY | | [...] | 0.75 | 0.70 - 1.30 | [facility] | [...] | | | FILTRATION | mL/min/1.73m2 | [facility] | | | [facility] | RATE,ESTIMATED | | MEDICAL | | | | mL/min/1.76x7Frgb than | | CENTER - | | [...] [address] | [place] | [phone] | | [facility] | | [address] | | | - LABORATORY | | | | + + + + + CBC with Differential (05/05/2019 4:39 AM PST) + + + + + + | Component | Value | Ref Range | Performed | Pathologist | | | | | At | Signature | + + + + + + | WBC | 7.4 | 4.0 - 11.0 K/uL | [facility] | | | | | | [facility] | | | | | | MEDICAL | | | | | | CENTER - | | | | | | LABORATORY | | + + + + + + | RBC | 4.41 | 4.30 - 5.70 | [facility] | | | | | M/uL | . [facility] | | | | [...] + | [facility] | [address] | [place] | [phone] | | [facility] | | [address] | | | - LABORATORY | | [...] | | | Lavender | | | [facility] | | | Top Tube | | [...] ST. | [address] | [place], [place] | [phone] | | [facility] | | [address] | | | - LABORATORY | | [...] | 0.87 | 0.70 - 1.30 | [facility] | [...] mL/min/1.73m2 | [facility] | | | [facility] | RATE,ESTIMATED | | MEDICAL | | | | mL/min/1.59z7Ndiv than | | CENTER - | | [...] [address] | [place] | [phone] | | [facility] | | [address] | | | - LABORATORY | | [...] + | Gordy, Rad Results In - 05/05/2019 8:32 AM PST [...] [address] | [place] | [phone] | | [facility] | | [address] | | | - LABORATORY | | | | + + + + + Culture, Anaerobic (05/04/2019 10:09 PM PST) + + + + + + | Component | Value | Ref Range | Performed | Pathologist | | | | | At | Signature | + + + + + + | Culture | 1+ Finegoldia | | [facility] | | | | magnaComment: Drug of [...] + | [facility] | [address] | [place], [place] | [phone] | | [facility] | | [address] | | | - LABORATORY | | | | + + + + + Culture, Wound, Smear (05/04/2019 10:09 PM PST) + + + + + + | Component | Value | Ref Range | Performed | Pathologist | | | | | At | Signature | + + + + + + | Culture | 2+ Enterobacter cloacae | | [facility] | | | | ssp cloacaeComment: This | | [facility] | | | | organism is known [...] [address] | [place] | [phone] | | [facility] | | [address] | | | - LABORATORY | | | | + + + + + POC Glucose (05/04/2019 8:40 PM PST) + +-------+ + + + | Component | Value | Ref Range | Performed | Pathologist | | | | | At | Signature | + +-------+ + + + | Glucose, | 106 | 70 - 109 mg/dL | [facility] [...] [address] | [place] | [phone] | | [facility] | | [address] | | | - LABORATORY | | [...] + | [facility] | [address] | [place] | [phone] | | [facility] | | [address] | | | - LABORATORY | | [...] + | Gordy, Rad Results In - 05/04/2019 8:25 PM PST [...] + + | [facility] | [address] | [place] | [phone] | | [facility] | | [address] | | | - LABORATORY | | [...] + | [facility] | [address] | [place] | [phone] | | [facility] | | [address] | | | - LABORATORY | | [...] | | | | | | Juan Magaña | | | | + + + + + + + + | Specimen | + + | Blood - Peripheral | | blood specimen | | (specimen) | + + + + + + + | Performing | Address | City/State/Zipcode | Phone Number | | Organization | | | | + + + + + | [facility] | [address] | [place] | [phone] | | [facility] | | [address] | | | - LABORATORY | | [...] [address] | [place] | [phone] | | [facility] | | [address] | | | - LABORATORY | | [...] in | 12 - 53 U/L | [facility] | | | | use as of July 20 | | [facility] | | | | 2018. Check [...] + | [facility] | [address] | [place] | [phone] | | [facility] | | [address] | | | - LABORATORY | | [...] mL/min/1.73m2 | [facility] | | | [facility] | | | MEDICAL | | | [...] [address] | [place] | [phone] | | [facility] | | [address] | | | - LABORATORY | | | | + + + + + CBC with Differential (05/04/2019 4:18 PM PST) + +-------+ + + + | Component | Value | Ref Range | Performed | Pathologist | | | | | At | Signature | + +-------+ + + + | WBC | 9.1 | 4.0 - 11.0 K/uL | [facility] [...] | | Lymphocytes | | K/uL | [facility] | [...] | | Immature | | K/uL | [facility] | | | Granulocyte | | [...] [facility]. | [address] | [place], [place] | [phone] | | [facility] | | [address] | | | - LABORATORY | | [...] | +---+---+ + +-------+ +-------+---+ + | bupivacaine (MARCAINE) 0.5% | Given | 05/04/20 | 5 mLs | | Surgical | | injection PRN, Starting Nelida | | 19 10:02 | | | Site | | 05/04/19 at 2202, Intra-op | | PM PST | | | | + +-------+ +-------+---+ + +---+---+ | | | [...] | +---+---+ + +-------+ +-------+---+ + | lidocaine 1% injection PRN, | Given | 05/04/20 | 5 mLs | | Surgical | | Starting Nelida 05/04/19 at 2202, | | 19 10:02 | | | Site | | Intra-op | | PM PST | | | | + +-------+ +-------+---+ + +---+---+ | | | [...] AM PST | | | | | Wed05/05/19 at 0900, Tablet may | | | [...] AM PST | | | | | Wed05/05/19 at 0730, Indication: | | | | [...] +-------+ +---------+---+---+ +---+---+ | | | +---+---+ documented in this encounter
--- OUTSIDE RECORDS SUMMARY | ~2019-09-14 | XMS | Encounter Summary ---
Demographics + + + | Address | [address] | | | [place] [address] | + + + | Home Phone | | + + + | Preferred Language | Unknown | + + + | Marital Status | Single | + + + | Muslim Affiliation | Unknown | + + + | Race | Unknown | + + + | Ethnic Group | Unknown | + + + Author + + + | Author | [facility] | | | and [facility] | + + + | Organization | [facility] | | | and [facility] | + + + | Address | Unknown | + + + | Phone | Unavailable | + + + Support + + + + + | Name | Relationship | Address | Phone | + + + + + | Val Torrez | ECON | [address] | | | | | [place] [address] | | + + + + + Care Team Providers + +------+ + | Care Hedis Review Nurse Name | Role | Phone | + +------+ + | Debora Butts | PCP | | + +------+ + Reason for Visit +---------+ + | Reason | Comments | +---------+ + | Post Op | | +---------+ + Encounter Details +--------+ + + + + | Date | Type | Department | Care Team | Description | +--------+ + + + + | 12/07/ | Telephone | [facility] | Bipin Mcconnell, | Post Op | | 2013 | | SURGERY [address] | MD [address], | | | | | [place], [place] | [address] [place], | | | | | [address] | [place] [id number] | | | | | [phone] | [phone] | | | | | | | [...]
--- OUTSIDE RECORDS SUMMARY | ~2019-09-14 | XMS | Encounter Summary ---
Demographics + + + | Address | [address] | | | [place] [address] | + + + | Home Phone | | + + + | Preferred Language | Unknown | + + + | Marital Status | Single | + + + | Hindu Affiliation | Unknown | + + + | Race | Unknown | + + + | Ethnic Group | Unknown | + + + Author + + + | Author | [facility] | | | and [facility] | + + + | Organization | [facility] | | [...] | | | | | [place] [address] | | + + + + + Care Team Providers + +------+ + | Care Local Superintendent Name | Role | Phone | + +------+ + PCP | Unavailable | + +------+ + Encounter Details +--------+ + + + + | Date | Type | Department | Care Team | Description | +--------+ + + + + | 08/14/ | Hospital | [facility] | Conversion | | | 2004 | Encounter | CONVERSION DEP 888 | Transaction, | | | | | [facility] [place] | Provider Unknown | | | | | [place] | | | | | | [phone] | (Fax) | | | | | [phone] | | | +--------+ + + + [...]
[2019-09-14] MEDS ORDERED: VITAMIN C500 M5 PO (07:03)
[2019-09-14] MEDS ORDERED: ASPIRIN EC81 MG PO (07:03)
[2019-09-14] MEDS ORDERED: CALCIUM 600 +1 EAC8 PO (07:03)
[2019-09-14] MEDS ORDERED: PLAVIX75 MG PO (07:04)
[2019-09-14] MEDS ORDERED: VITAMIN D325 MC1 PO (07:04)
[2019-09-14] MEDS ORDERED: DOK250 MG PO (07:05)
[2019-09-14] MEDS ORDERED: CLOTRIMAZOLE TOP (07:05)
[2019-09-14] MEDS ORDERED: VITAMIN B-12500 MCG PO (07:05)
[2019-09-14] MEDS ORDERED: FISH OIL 1,0001 EAC2 PO (07:06)
[2019-09-14] MEDS ORDERED: FIBER GUMMIES1 EACH PO ×3 (07:06→12:29)
[2019-09-14] MEDS ORDERED: LISINOPRIL20 MG PO (07:07)
[2019-09-14] MEDS ORDERED: NEURONTIN300 MG PO (07:07)
[2019-09-14] MEDS ORDERED: MAGNESIUM OXID420 MG PO (07:08)
[2019-09-14] MEDS ORDERED: MULTI-DAY PLUS1 EAC1 PO (07:08)
[2019-09-14] MEDS ORDERED: METOPROLOL SUC100 MG PO (07:08)
[2019-09-14] MEDS ORDERED: PROBIOTIC1 EAC1 PO (07:09)
[2019-09-14] MEDS ORDERED: OMEPRAZOLE20 M2 PO (07:09)
[2019-09-14] MEDS ORDERED: SENNA8.6 MG PO (07:10)
[2019-09-14] MEDS ORDERED: SIMVASTATIN20 MG PO (07:11)
[2019-09-14] MEDS ORDERED: TRAZODONE HCL150 MG PO (07:11)
[2019-09-14] MEDS ORDERED: FLOMAX0.4 MG PO (07:11)
[2019-09-14] MEDS ORDERED: CYCLOBENZAPRINE10 MG PO (07:27)
--- NOTE | 2019-09-14 10:00 | NUR ---
74YR OLD MAN ADMITTED FROM ER VIA STRETCHER TO ROOM 112, PT IS ALERT, ORIENTED ABLE TO SLIDE SELF OVER ONTO BED. IMMEDIATELY BEGAN WRETCHING WITH MOTION, NO EMESIS, C/O 8/10 PAIN ACROSS MID ABD, TENDER TO TOUCH. POSITIONED FOR COMFORT WITH HOB UP 40DEG, ORDERS NOTED, CALL LIGHT IN EASY REACH.
--- NOTE | 2019-09-14 10:15 | NUR ---
ZOFRAN GIVEN FOR NAUSEA. RESTING WITH COOL CLOTH ON HEAD.
--- NOTE | 2019-09-14 11:35 | NUR ---
PT REPORTS NAUSEA IMPROVED, ASKED FOR PAIN MEDICATION, 8/10 PAIN ACROSS ABD. DILAUDID GIVEN.
--- NOTE | 2019-09-14 12:05 | NUR ---
PT C/O NAUSEA RETURNING AND IS WRETCHING AGAIN, SPOKE WITH DR REINA AND OK TO GIVE PHENERGAN.
--- NOTE | 2019-09-14 12:07 | NUR ---
PT IN MUCH BETTER MOOD, REPORTS PAIN 4/10, NAUSEA MUCH IMPROVED, VISITING WITH PASTOR LEE AT THIS TIME.
--- NOTE | 2019-09-14 12:19 | NUR ---
PT JUST ADMITTED, JUST GIVEN PHENERGAN FOR NAUSEA-SOMEWHAT DROWSY. HAVING SOME DIFFICULTY STAYING AWAKE. WANTED TO VISIT, REALIZED HIS DROWZINESS. REQUESTED I RETURN. HAD PRAYER WITH PT AND MENTIONED THAT HE WAS STRUGGLING WITH SUICIDE A SIN THAT CAN'T BE FORGIVEN. DECIDED WE WILL VISIT AGAIN WHEN MORE ALERT. I DO NOT THINK HE HAS ANY SUICIDE IDIATION, JUST QUESTIONING. WILL FOLLOW
--- NOTE | 2019-09-14 12:30 | NUR ---
PT IS RESTING QUIETLY, CALL LIGHT IN EASY REACH, IVF PATENT.
--- NOTE | 2019-09-14 13:25 | NUR ---
Spoke with pt for CM assistance. States he has been ill with pain and nausea x 3 days. Pt state he lives in an apartment with his roommate Johan. Daughter is his state paid cg and does "everything for him' as he is disabled and an amputee. States [facility], does not want to [facility] equipment. Lives in a 1 story with a ramp. States he is not feeling well and can't answer questions. Informed this is ok, I have enough for his assessment. Pt plans to dc to home when discharged.
--- NOTE | 2019-09-14 13:38 | NUR ---
PT AWAKE C/O 12/31 ABD PAIN, NO NAUSEA, DILAUDID GIVEN FOR PAIN, SCHEDULED MEDS GIVEN AT THIS TIME NAUSEA IS NOW IMPROVED, DR HOFF IN TO SEE PT.
--- NOTE | 2019-09-14 14:30 | NUR ---
PT RESTING WITH EYES CLOSED, RESP EVEN AND UNLABORED. CALL LIGHT IN EASY REACH.
--- NOTE | 2019-09-14 15:40 | NUR ---
PT AWAKE, DIAPHORETIC, SHAKING STATES HE NEEDS HIS PAIN MEDICATION, PAIN 9/10, POINTS ALL OVER ABD, DENIES NAUSEA. DILAUDID GIVEN, RPOSITIONED WITH PILLOWS AND NEW SHEET. CALL LIGHT IN EASY REACH, REMAINS NPO.
--- NOTE | 2019-09-14 16:50 | NUR ---
RESTING WITH EYES CLOSED, IVF PATENT, CALL LIGHT IN EASY REACH.
--- NOTE | 2019-09-14 17:19 | NUR ---
PT REQUESTING NICOTINE LOZENGE, SITTING UP ON EDGE OF BED SIPPING ON CL LIQUID TRAY.
--- NOTE | 2019-09-14 19:10 | CONS ---
[facility] [address], [place] [address] Signed DATE OF CONSULTATION: 09/14/2019 CONSULTATION PHYSICIAN: Taylor Hoff MD REQUESTING PHYSICIAN: Max Rosales MD PROBLEM: Abdominal pain, right lower abdominal tenderness. HISTORY OF PRESENT ILLNESS: This 74-year-old white man gets most of his care from the [facility] and has previously undergone laparoscopic cholecystectomy with concurrent laparoscopic appendectomy in 2013. He was noted to have gangrenous cholecystitis and an inflamed appendix as well. He was admitted to the hospital by Dr. Rosales on September 13 with presumptive diagnosis of pancreatitis. Notably, his lipase was noted to be 66. He had a CT scan without contrast, which showed fluid around the pancreas. The patient has no history of pancreatitis per se in the past. Upon additional examination by Dr. Rosales, he was noted to have some right lower abdominal tenderness. This was different than his presentation apparently. At present, the patient has no specific complaints of right lower abdominal pain, only vague discomfort of the abdomen. His dominant complaint is interscapular pain. He denies any actual vomiting, though he has had some nausea. He was noted to have an elevated white count of 20.6 with hematocrit of 45.4. His electrolytes are normal, creatinine is 0.86. Liver enzymes are normal. Cholesterol and other lipids are normal as well. Urinalysis was essentially normal. 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 I reviewed the report and the images as well. REVIEW OF SYSTEMS: He denies any shortness of breath or chest pain. He denies any hematemesis or blood per rectum. No focal abdominal pain. PHYSICAL EXAMINATION: GENERAL: This is an elderly white man, who is not systemically toxic in appearance. VITAL SIGNS: His blood pressure is 147/90, pulse was 104, temperature 98.5, respirations 20. He has a large soft tissue mass in the right orbit. HEENT: Mucous membranes are moist. Trachea is midline. CHEST: Shows normal respiratory excursion without tachypnea. Posterior thorax shows a scar in the upper thorax along the spine from prior operation. He shows no sign of Electronically Signed By: TAYLOR HOFF MD 09/14/19 1910 PATIENT NAME: TAYLOR MUELLER CONSULTATION DATE OF : 49 REPORT #: [id number] PHYSICIAN: TAYLOR HOFF MD PCP: YONI ROSE REPORT IS CONFIDENTIAL AND NOT TO BE RELEASED WITHOUT AUTHORIZATION [facility] [address], [place] [address] Signed ecchymosis. ABDOMEN: Supine examination shows abdomen, which is somewhat protuberant, but not grossly distended. He has an incisional hernia that appears to be reducible in the supraumbilical area. There is midline incision in the upper abdomen. 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 Left leg shows no sign of cyanosis or other abnormality. RECTAL: Exam was not done by me at this time. LABORATORY STUDIES: Show white count of 20.6, hematocrit of 45.4, platelets of 274,000. Chem profile as noted with a sodium with 127. Urinalysis normal. ASSESSMENT: I have reviewed his operative report from the [facility] dated 11/28/2013. He had an enterotomy during the course of his operation, which was repaired extracorporeally with suture and he was noted to have a fair amount of adhesions in the abdomen as well. He does not specifically show signs of bowel obstruction. 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 There was no visualization of the appendix. Therefore, on CT scan, and it is unlikely that he has a residual appendiceal stump appendicitis. He is not particularly tender in the right lower quadrant at this time, though he is somewhat fussy about his overall situation and it is unclear exactly what the issue is. He does not have peritonitis. No rebound tenderness at this time. I agree with Dr. Rosales's approach of IV fluids and continued observation. Medications were reviewed, which show no initiation of antibiotics at this time, which is probably reasonable as there was no identified infectious process. 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 I will continue to follow the patient and we will review further records and his clinical progress. MD AGUSTIN Riley/MODL /[id number] Electronically Signed By: TAYLOR HOFF MD 09/14/191909 PATIENT NAME: TAYLOR MUELLER CONSULTATION DATE OF : 49 REPORT #: [id number] PHYSICIAN: TAYLOR HOFF MD PCP: YONI ROSE REPORT IS CONFIDENTIAL AND NOT TO BE RELEASED WITHOUT AUTHORIZATION [address] [address] Signed cc: Max Rosales MD Copies: MAX ROSALES MD ~ Electronically Signed By: TAYLOR HOFF MD 09/14/19 1910 PATIENT NAME: TAYLOR MUELLER CONSULTATION DATE OF : 49 REPORT #: [id number] PHYSICIAN: TAYLOR HOFF MD PCP: YONI ROSE REPORT IS CONFIDENTIAL AND NOT TO BE RELEASED WITHOUT AUTHORIZATION
--- NOTE | 2019-09-14 19:48 | NUR ---
C/O 8 ABD PAIN, MEDICATED WITH DILAUDID 0.5MG IV.
--- NOTE | 2019-09-14 20:32 | NUR ---
PT CALLED D/T BEEPING IV, FRESH ICEWATER AT BEDSIDE. PT DENIES FURTHER NEEDS AT THIS TIME. CALL LIGHT WITHIN REACH.
--- NOTE | 2019-09-14 21:11 | NUR ---
Pt states mild to fair pain relief . Medicated with muscle relaxant c/o muscle spasms. Nicotine lozenger give per smoking cravings. On room air, very anxious. Up to br using self transferring from bed to home w/c. voiding qS using urinal. Tele#[address] Sinus tach readings at this time. R22 with exertion, sats w/o changes on return. Multiple bruising over arms. RBKA and L partial toe amputaion. moves and turns by self in bed. Minimum to 1PA. IVF infusing, On room air
--- NOTE | 2019-09-14 21:40 | NUR ---
ANSWERED CALL LIGHT, PT WAS QUESTIONING PLAN OF CARE AND HAD QUESTIONS ABOUT HIS MEDICATIONS. COMPUTER WOULD NOT LOGIN, TOLD PT WILL LOOK AT CHART AND COME BACK TO TALK WITH HIM. UPON RETURNING TO THE ROOM PT WAS SLEEPING, RR IS EVEN AND NONLABORED. WILL TALK MORE WITH PT WHEN HE WAKES UP.
--- NOTE | 2019-09-15 00:27 | NUR ---
pt c/o 03/02 back and abd pain, medicated with dilaudid 1mg IV, no c/o n/v
--- NOTE | 2019-09-15 03:02 | NUR ---
PT C/O ABD AND BACK PAIN, MEDICATED WIOTH DILAUDID 1MG IV 12/31 PAIN. ROOM HAS A VERY STRONG SMELL OF FRESH CIGARRETTE SMOKE, PT ON ROOM AIR, DENIES HAVING SMOKED IN ROOM RECENTRLY, PT ADVISED THAT IS AGAINST POLICY TO SMOKE IN HOSP DUE TO FIRE RISK STATED UNDERSTANDING, PT INSTRUCTED THAT GAS METER INSTALLER HELPER WOULD BE NOTIFIED AND SMOKES WOULD BE REMOVED AND PLACED IN SAFE IF HE HAD ANY, DENIES HAVING ANY CIGARRETS ON HIS PERSON OR BELONGINGS AT THIS TIME,
--- NOTE | 2019-09-15 03:27 | NUR ---
sl pt's iv so he could use the wc to use restroom. it is now infusing again and rewrapped iv with coban.
--- NOTE | 2019-09-15 03:42 | NUR ---
ADMINISTERED 6.25MG PHENERGAN VIA IV PUMP. PT DENIES FURTHER NEEDS AT THIS TIEM. CALL LIGHT IS CLOSE.
--- NOTE | 2019-09-15 05:41 | NUR ---
Up to br, using own w/c, minimum to no assist. voided, back to bed, c/o 10/10 abd and back pain, medicated with flexoril and dilaudid. IVf infusing. Repositions self in bed.
--- NOTE | 2019-09-15 05:48 | NUR ---
Pt has chronic back pain and c/o abd pain. Has been medicated with flexeril 10mg po X2, Dilaudid X4, and phenergan x1 per c/o feeling nauseated, nicotine lozengers x1. On room air, Tele32 with irregular heart rate, no c/o CP or sob with exertion. is semi independent in his care. transfers well to home w/c, no bms thi sshift, void in br and urinal. has multiple bruising over arms and legs, at different stages of healing. TEVIN, and Efren partial toes/foot amputaion.. IVF infusing w/o problems. high fall risk precautions in place
--- NOTE | 2019-09-15 07:55 | NUR ---
ENTERED ROOM TO GIVE pt MEDICATIONS AND PERFORM ASSESSMENT. pt WAS LAYING IN BED ON HIS RIGHT SIDE. BED WAS IN LOWEST POSITION WITH HEAD RAILS UP X2 AND CALL LIGHT ON LAP. pt WAS COMPLAINING OF BEING NAUSEOUS, AND PAIN IN HIS ABODMEN THAT RADIATES TO SHOULDERS. HE WAS FREELY MOVING AROUND AND REPOSITIONING ASKED. MEDICATIONS WERE ADMINISTERED AND ASSESSMENT COMPLETED. pt WAS IN SAME POSITION FOUND WHEN SHORT RANGE AIR DEFENSE ARTILLERY LEFT THE ROOM.
--- NOTE | 2019-09-15 08:50 | NUR ---
ENTERED ROOM TO CHECK ON pt. pt WAS IN BED LAYING ON HIS RIGHT SIDE WITH CALL LIGHT IN LAP. BED IS IN LOWEST POSITION AND HEAD RAILS ARE UP X2. pt WAS SLEEPING. RESPIRATORY RATE WAS EVEN AND UNLABORED. pt LEFT IN SAME POSISITON FOUND.
--- NOTE | 2019-09-15 09:23 | NUR ---
ENTERED ROOM TO SEE WHY PUMP ALARM WAS GOING OFF. pt WAS LYING ON RIGHT SIDE SLEEPING IN BED. BED WAS IN LOWEST POSITION WITH HEAD RAILS UP X2, AND CALL LIGHT WITHIN REACH. IV TUBING WAS LOOSELY SECURED TO pt LEFT UPPER ARM WITH COBAND IN AN ATTEMPT TO KEEP IV PUMP ALARM FROM GOING OFF. pt WAS LEFT IN SAME POSITION FOUND HE CAN MOVE INDEPENDENTLY.
--- NOTE | 2019-09-15 10:55 | NUR ---
ENTERED ROOM TO UNHOOK IV LINE SO pt COULD USE THE BATHROOM. pt WAS ON SIDE OF THE BED READY TO TRANSFER TO WHEELCHAIR. IV SITE WAS FLUSHED WITH 5ML OF NS. pt WAS HELPED TO TOILET. pt WAS LEFT ON TOILET AND TOLD TO CALL WHEN HE WAS DONE.
--- NOTE | 2019-09-15 11:10 | NUR ---
ENTERED ROOM TO HELP pt BACK TO BED. pt WAS ALREADY BACK IN HIS WHEEL CHAIR READY TO BE MOVED BACK TO BED. pt WAS MOVED BACK TO BED AND TRANSFERED HIMSELF. IV WAS HOOKED BACK UP TO pt, AND PAIN MEDICATIONS WERE GIVEN SEE eMAR. pt LAID BACK DOWN ON HIS RIGHT SIDE. pt WAS LEFT IN BED WITH CALL LIGHT WITHIN REACH. BED WAS IN LOWEST POSITION WITH HEAD RAILS UP X2.
--- NOTE | 2019-09-15 12:35 | NUR ---
ENTERED ROOM TO CHECK ON pt. pt WAS SLEEPING ON RIGHT SIDE IN BED WITH HEAD RAILS UP X2. BED IS IN LOWEST POSITION AND CALL LIGHT WAS WITHIN REACH. RESPIRATIONS ARE EVEN AND UNLABORED. pt WAS LEFT IN POSITION THAT HE WAS FOUND IN.
[2019-09-15] MEDS ORDERED: NORCO 10-325 T1 EACH PO (12:58)
[2019-09-15] MEDS ORDERED: NARCAN4 MG NAS (13:04)
[2019-09-15] MEDS ORDERED: VIAGRA100 MG PO (13:06)
--- NOTE | 2019-09-15 13:13 | NUR ---
THIS WRITTER AGREES WITH ALL OF STUDENTS NURSE CHART AUDIE SOARES.
--- NOTE | 2019-09-15 13:30 | NUR ---
RECEIVED REPORT FROM [facility] COLLECTION ADMINISTRATOR DEEPTHI. PT SITTING IN BED AT THIS TIME STATING HAVING PAIN 12/31. DISCUSSED WITH PT THAT THIS RN WILL BE BACK IN SOON ONCE SHE GETS REPORT ON HER OTHER PT. PT AGREEABLE. CALL LIGHT WITHIN REACH
--- NOTE | 2019-09-15 14:15 | NUR ---
IN PTS ROOM GIVING PAIN MED AND NOTICED THAT PTS IV WAS LEAKING. CHANGED THE DRESSING AT THE SITE BUT WHEN FLUSHED AFTER DRESSING CHANGE IV WAS STILL LEAKING. DECIDED TO PUT A NEW IV IN. POKED ONCE IN THE LAC WITH NO BLOOD RETURN SO ON THE SECOND ATTEMPT GOT THE IV IN THE RAC, PT IS A HARD POKE.
--- NOTE | 2019-09-15 17:03 | NUR ---
PT APPEARS TO RESTING COMFORTABLY AT THIS TIME, RESPIRATIONS NOTED AND CALL LIIGHT WITHIN REACH
--- NOTE | 2019-09-15 17:54 | NUR ---
PT UP TO RESTROOM WITH ASSIST FROM STEREOPTICIAN. PT STATES THAT HE WOULD LIKE TO "GO OUTSIDE FOR LIKE 30MINS" PT STATED HE WAS VERY PAINFUL FROM MOVING AROUND IN ROOM. PROVIDED PT WITH A NICOTINE LOZENGE AND SOME MORE PAIN MEDS
--- NOTE | 2019-09-15 18:48 | NUR ---
PT REFUSED DINNER
--- NOTE | 2019-09-15 20:29 | NUR ---
Up to br, voided, no bm yet, independent in room, uses home w/c. warm blanket given. on room air, multiple bruising over arm, healing. IVF infusing w/o problems RAC. c/o feeling nauseated on return, medicated with Phenergan 6.25mg IV
--- NOTE | 2019-09-15 21:43 | NUR ---
chrage rn rounding note. pt sitting up in bed, reports pain, requests prn pain medication. primary rn notified. pt denies further needs. call light in reach. white board updated.
--- NOTE | 2019-09-15 22:05 | NUR ---
pt c/o 03/02 back and abd pain, medicated with gabapentin 600mg po and dilaudid 1mg IV. restless, in bed, turns self, ivf infusing
--- NOTE | 2019-09-16 00:04 | NUR ---
awake, c/o abd aand back pain 12/31, mjedicated with dilaudid 1mg IV and flexeril 10mg po. fresh water given, IVf infusing, pt on room air, turns selgf in bed
--- NOTE | 2019-09-16 01:57 | NUR ---
c/o 12/31 abd and back pain, medicated with dilaudid 1mg IV and 650mg po tylenol. voiding qs using urinal. IVF infusing. using call light
--- NOTE | 2019-09-16 04:49 | NUR ---
c/o 5/10 back and abd pain and feeling nauseated. medicated with dilaudid 1mg IV and zofran 4mg IV. turns selg in bed, tolerating liquids well. using urinal QS voidings
--- NOTE | 2019-09-16 05:53 | NUR ---
Pt semi independent in room, transfers self to home w/c, RABA and L partial foot and otes amputation. bruised arms healing. On room air. IVF infusing w/o problems. Pt has been medicated for and pain and feeling nauseated with zofran and phenergan, effective, no emesis. Medicated with Tylenol, Flexoril, Gabapentin, and Dilaudid per pain, effective. tolerating liquids well. voiding qs. less anxious this shift, uses call light appropriately
--- NOTE | 2019-09-16 07:30 | NUR ---
Report received, orders acknowledged. Patient sleeping in bed, respirations even and unlabored. Call light within reach.
--- NOTE | 2019-09-16 08:10 | NUR ---
Patient sleeping in bed, rouses easily to voice. AM medications given, assessment complete. Patient reports pain of 7/10, prn pain medication given (see MAR). Denies further needs at this time, call light within reach.
--- NOTE | 2019-09-16 10:30 | NUR ---
Patient reports pain of 7/10. Prn PO pain medication given (see MAR). Patient laying in bed with wheelchair at bedside, denies further needs at this time. Call light within reach.
--- NOTE | 2019-09-16 10:55 | NUR ---
PATIENT IN BED RESTING. CALL LIGHT IN REACH. NO FURTHER NEEDS AT THIS TIME.
[2019-09-16] MEDS ORDERED: NICORETTE4 M2 BUCCAL (12:34)
[2019-09-16] MEDS ORDERED: HYDROMORPHONE HC2 MG PO ×2 (12:35→12:38)
--- NOTE | 2019-09-16 13:30 | NUR ---
Discharge instructions given, patient verbalized understanding of follow up appointment. IV D/C'd, vital signs taken. All patient belongings collected. Patient leaves unit via wheelchair with nursing staff.
== END 2019-09-16 13:50 | disposition home or self-care (01) | DRG 440 ==
LOC: ED 06:28 → MS 09:42
PROVIDERS: ADMIT Internal Medicine
DX: K85.30 Drug induced acute pancreatitis without necrosis or infection (principal); T50.915A Adverse effect of multiple unspecified drugs, medicaments and biological substances, initial encounter; E11.51 Type 2 diabetes mellitus with diabetic peripheral angiopathy without gangrene; E78.5 Hyperlipidemia, unspecified; I10 Essential (primary) hypertension; K21.9 Gastro-esophageal reflux disease without esophagitis; F17.200 Nicotine dependence, unspecified, uncomplicated; Z90.49 Acquired absence of other specified parts of digestive tract; Z89.611 Acquired absence of right leg above knee; Z88.8 Allergy status to other drugs, medicaments and biological substances; Z79.02 Long term (current) use of antithrombotics/antiplatelets; Z79.82 Long term (current) use of aspirin; Z79.899 Other long term (current) drug therapy
CPT/HCPCS: 36415; 74176; 80053; 80061; 81001; 83690; 83735; 84100; 85025; 99406; C9113; J1170; J1650; J2270; J2405; J2550; J3480; J7030; J7120

== ENCOUNTER 2021-02-18 13:26 | Inpatient (IN) | payer OTHER ==
[~2021-02-18] VITALS: Ht 175.3 cm; Wt 55.7 kg
[~2021-02-18 13:26] MED LIST: ASPIRIN EC81 MG PO; CALCIUM 600 +1 EAC8 PO; CIALIS20 MG PO; CLOTRIMAZOLE TOP; CYCLOBENZAPRINE10 MG PO; FIBER GUMMIES1 EACH PO; FISH OIL 1,0001 EAC2 PO; FLOMAX0.4 MG PO; HYDROMORPHONE HC2 MG PO; LISINOPRIL20 MG PO; MAGNESIUM OXID420 MG PO; MULTI-DAY PLUS1 EAC1 PO; NARCAN4 MG NAS; NEURONTIN300 MG PO; NICORETTE4 M2 BUCCAL; NORCO 10-325 T1 EACH PO; OMEPRAZOLE20 M2 PO; PLAVIX75 MG PO; PROBIOTIC1 EAC1 PO; SENNA-S 8.6-501 EACH PO; SENNA8.6 MG PO; SIMVASTATIN20 MG PO; TOPROL XL50 MG PO; TRAZODONE HCL150 MG PO; VITAMIN B-12500 MCG PO; VITAMIN C500 M5 PO; VITAMIN D325 MC1 PO
--- NOTE | 2021-02-18 20:55 | NUR ---
RECEIVED REPORT FROM SEAMUS CASTRO
--- NOTE | 2021-02-18 21:15 | NUR ---
PROVIDED PT. NURSE WITH TELE. ASSISTED WITH PT VITALS, ROOM TIDIED, PERSONAL ITEMS IN APPROPRIATE LOCATION. ICE WATER PROVIDED. NO OTHER IMMEDIATE NEEDS AT THIS TIME.
--- NOTE | 2021-02-18 21:30 | NUR ---
PT WAS ADMITTED FROM ED, TO ROOM 124. A/O, OBVIOUS DISCOMFORT, ABLE TO MOVE SELF FROM STRETCHER TO BED. NOTABLE THICK YELLOW LONG FINGERNAILS, IS A CURRENT SMOKER. ADMISSION PROCESS COMPLETE. HAS A AT HOME. PT W/C IN ROOM. PT ARRIVED TO FLOOR 2104
--- NOTE | 2021-02-18 21:35 | NUR ---
pt ASSESSMENT COMPLETE. pt C/O 11/30 ABDOMINAL PAIN, MID ABDOMEN. PRN PAIN MEDICATION ADMINISTERED. IVF INFUSING WNL. BOWEL TONES ACTIVE, ABD SOFT, TENDER WITH PALPATION. RN MARY ANN IN ROOM TO COMPLETE ADMISSION. pt IS ORIENTED TO SELF, PLACE, EVENT, NOT EXACT DATE. CALL LIGHT IN REACH. ORIENTATION TO ROOM PROVIDED.
--- NOTE | 2021-02-18 22:55 | NUR ---
Patient via bathroom toilet, W/C, SBA. Patient can independently pivot with his arms and his leg. Patient was steady during the entire process of moving from his bed to his W/C, utilizing W/C safely to and from the bathroom, and on and off the toilet. Patient can readily move himself up in bed independently, SBA. All personal items within reach.
--- NOTE | 2021-02-19 | NUR ---
CHECKED ON pt. RESTING IN BED WITH EYES CLOSED. IV PUMP ALARMING, DISTAL OCCLUSION. FLUIDS NOW INFUSING WNL. pt HAS NO REQUESTS. CALL LIGHT IN REACH.
--- NOTE | 2021-02-19 02:09 | NUR ---
IN pt ROOM FOR VS. VSS. pt SLEEPING, AWAKENS TO VOICE. RATES PAIN 9/10 IN RLQ ABDOMEN. PRN PAIN MEDICATION ADMINISTERED. ABD SOFT, TENDER RLQ, BOWEL TONES ACTIVE THROUGHOUT. IV ALARMING DISTAL OCCLUSION, TOWEL WRAPPED AROUND ARM WITH COBAN TO KEEP ARM STRAIGHT. ASSESSMENT COMPLETE. pt DROWSY, LIGHTS OFF IN ROOM.
--- NOTE | 2021-02-19 02:43 | NUR ---
Patient was sleeping before vitals and I&Os are done. Patient went back to sleep afterwards.
--- NOTE | 2021-02-19 03:30 | NUR ---
pt'S HR IN HIGH 120S SUSTAINED, IRREGULAR HR ON TELE 5. PRN LOPRESSOR ADMINISTERED IV. pt DROWSY, CLOSING EYES, BACK TO SLEEP. BREATHING UNLABORED. BED ALARM ON. CALL LIGHT IN REACH.
--- NOTE | 2021-02-19 04:55 | NUR ---
WALKING BY ROOM, HEARD IV ALARMING. PT SITTING UP IN BED, ROCKING FORWARD, HAND ON HIS WHEELCHAIR, WHICH WAS THE FOOT OF THE BED, RIGHT SIDE OF BED. PT VERBALIZED BEING IN PAIN AND WAS IT TIME TO GO HOME. TOLD PT IT WAS 0500, HE LOOKED AT THE CLOCK AND SAID OH, LAID BACK DOWN, EYES CLOSED, COVERED PT UP, AND DISCOVERED HIS IV TUBING WAS UNDER HIS LEFT LEG, TRACED THE TUBING, AND IV WAS DC'D AND HANGING OFF THE SIDE OF THE BED. PT UNAWARE IT WAS OUT. WNL, CATH. DRESSING APPLIED, PT COVERED, BED ALARM PLACED. PRIMARY RN NOTIFIED.
--- NOTE | 2021-02-19 05:42 | NUR ---
RODGER REESE IN ROOM, pt NOTED TO HAVE PULLED IV, TUBING WRAPPED UP IN BED. NEW IV STARTED RIGHT FOREARM. pt TOLERATED WELL. C/O 10/10 RLQ PAIN, PRN PAIN MEDICATION ADMINISTERED. IVF INFUSING WNL. PLUG GROWER IN ROOM. CALL LIGHT IN REACH. BED ALARM ON.
--- NOTE | 2021-02-19 06:15 | NUR ---
RECEIVED CALL FROM LAB FOR CRITICAL LAB @ 0601. REPORTED CRITICAL LAB VALUE TO MD @ 0611. NO NEW ORDERS AT THIS TIME.
--- NOTE | 2021-02-19 06:25 | NUR ---
Vitals, I&Os are complete. Call light is in reach and patient is going back to sleep.
--- NOTE | 2021-02-19 06:25 | NUR ---
pt AWAKENS TO VOICE. VSS. PT DENIES TOILETING NEEDS. DROWSY. TAKES DRINKS OF WATER AND LIES DOWN WITH EYES CLOSED. BED ALARM ON. CALL LIGHT IN REACH.
--- NOTE | 2021-02-19 06:31 | EKG ---
[facility] [address] [facility] [place], [place] [address] Signed Sinus tachycardia Otherwise normal ECG No previous ECGs available Confirmed by MAX COOMBS MD ([id number]) on 02/19/2021 6:31:29 AM Electronically Signed By: MAX COOMBS MD 02/19/21 0631 PATIENT NAME: TAYLOR MUELLER Electrocardiogram DATE OF : 49 PHYSICIAN: MAX COOMBS MD REPORT #: [id number] REPORT IS CONFIDENTIAL AND NOT TO BE RELEASED WITHOUT AUTHORIZATION
--- NOTE | 2021-02-19 07:30 | NUR ---
TOOK REPORT ON PT. PT IN ROOM IN BED. DENIES NEEDS AT THIS TIME.
--- NOTE | 2021-02-19 07:57 | NUR ---
PT AWAKE IN ROOM AND REQUESTED TO USE THE BATHROOM. THIS APPLICATIONS SYSTEMS ENGINEER HELPED PT TO THE BATHROOM IN WHEELCHAIR. PT IV WAS BEEPING RN ART IN THE ROOM TO HELP. PT BACK IN BED, SEEMS CONFUSED AND IMPULSIVE. PT IS ROCKING BACK AN FORTH IN BED, UNSTEADY AND SPORATIC WITH HAND MOVEMENTS. CALL LIGHT IS IN REACH, BED ALARM IS ON, RN ART IN ROOM. NO FURTHER NEEDS AT THIS TIME.
--- NOTE | 2021-02-19 08:04 | NUR ---
IN ROOM TO ASSIST PT FROM BATHROOM. PT UNSTEADY IN CHAIR AND UNABLE TO CONTROL HIS HANDS TO REALLY MOVE HIS CHAIR WELL. ASSISTED WITH ANDREA AGUILERA TO BOOST PT INTO BED. EXPLAINED TO PT THAT HE SHOULD STAY IN BED UNTIL HE IS MORE STEADY. PT DOES NOT APPEAR TO UNDERSTAND ALTHOUGH STATES THE AFFIRMATIVE. ADMININSTERED MORNING MEDS AND BED ALARM ON. GIVEN 1MG DILAUDID FOR 9\10 PAIN. STATES HE TAKES HYDROCODONE AT HOME FOR PAIN.
--- NOTE | 2021-02-19 09:55 | NUR ---
PT ASLEEP IN BED. PT DID NOT WAKE UP DURING VITALS. CALL LIGHT IN REACH. BED ALARM ON. NO FURTHER NEEDS AT THIS TIME.
--- NOTE | 2021-02-19 10:52 | NUR ---
PT CURRENTLY SITTING IN BED WATCHING TV. CALL LGHT IN REACH. PT DENIES NEEDS AT THIS TIME.
[2021-02-19] MEDS ORDERED: PROSCAR5 MG PO (11:43)
[2021-02-19] MEDS ORDERED: ELIQUIS2.5 MG PO (11:58)
--- NOTE | 2021-02-19 14:32 | NUR ---
DR. COOMBS NOTIFIED PT HAS NOT HAD A VOID SINCE THIS RN TOOK OVER CARE AT 0730. PT BLADDER SCANNED THAT SHOWER 670ML IN BLADDER. STRAIT CATHETER USED ON PT TO DRAIN 1000ML YELLOW URINE. COUDE CATHETER USED. PT THEN MOVED TO RM 120 NEAR RN STATION FOR CLOSER SUPERVISION.
--- NOTE | 2021-02-19 15:39 | NUR ---
PT LAYING IN BED SLEEPING. CALL LIGHT IN REACH. DENIES NEEDS WHEN ASKED 30 MIN AGO.
--- NOTE | 2021-02-19 17:17 | NUR ---
Patient very confused. Patient repeatedly attempting to get up out of bed. Patient has been advised to lay down and relax. Bed alarm is on. RODGER Wen has been notified.
--- NOTE | 2021-02-19 18:32 | NUR ---
PT DID NOT HAVE URINARY OUTPUT FROM 0730 TO 1200 TODAY AND WAS DRAINED VIA STRAIT CATH WITH COUDE TIP. PT VERY FIDGITY TODAY PRIOR TO THIS AND HAD BEEN RESTING SINCE.
--- NOTE | 2021-02-19 21:00 | NUR ---
BED ALARM SOUNDING. pt UP TO SIDE OF BED, ATTEMPTING TO STAND ON LEFT LEG. TWO RNS IN ROOM. ASSISTED pt BACK IN BED. pt IMPULSIVE, SHIFTING IN BED. RATES PAIN 10/10 IN RLQ. PRN PAIN MEDICATION ADMINSITERED BY PRIMARY RN AT THIS TIME. RN AND HAIRSPRING VIBRATOR REMAIN IN ROOM. pt BOOSTED HIGHER IN BED. BED ALARM SET.
--- NOTE | 2021-02-19 22:27 | NUR ---
STILL VERY AGITATED, C/O LEG PAIN, CRAWLING OUT OF BED, CONFUSED. ON ROOM AIR, LUNGS CLEAR, ABD SOIFT, LUKE. IVF INFUSING RW. WAS MEDICATED EARLIER WITH DILAUDID, GABAPENTIN, TRAZADONE PER C/O PAIN, INSOMNIA, NOT EFFECTIVE. NOT RECEPTIVE TO VERBAL INSTRUCTIONS. RBK AMPUTATION, LL TOE AMPUTAION. BED ALARM ON
--- NOTE | 2021-02-19 22:40 | NUR ---
ASSISTED NURSE WITH PATIENT BLADDER SCAN. SAT AND SUPERVISED PATIENT FROM [id number].
--- NOTE | 2021-02-19 23:27 | NUR ---
PT STILL VERY RESTLESS, TRYING TO GET OUT OF BED, TOOK TELE OFF, RAILS UP, BED ALARM ON, MANAGEMENT PROFESSIONAL IN ROOM, SEMI REDIRECTABLE
--- NOTE | 2021-02-20 00:06 | NUR ---
PATIENT IS SLEEPING IN BED. CALL LIGHT IS WITHIN REACH. NO OTHER NEEDS AT THIS TIME.
--- NOTE | 2021-02-20 00:58 | NUR ---
INSERTED 16FR CUDET F/C, MINIMUM OF RESISTANCE, inmediate return of dark yellow urine noted. PROCEDURE EXPLAined, confused, reestless, medicated with dilaudid 1mg iv
--- NOTE | 2021-02-20 01:00 | NUR ---
THIS DOCKMASTER IN TO SIT AT PTs BEDSIDE
--- NOTE | 2021-02-20 01:15 | NUR ---
EMPTIED PADILLA FOR RN, 450 OUTPUT AT THIS TIME, RN NOTFIED, THIS SPEEDER TENDER REMAINS AT AT PTs BEDSIDE
--- NOTE | 2021-02-20 02:00 | NUR ---
THIS DENTAL TECH SAT AT PT BEDSIDE THIS LAST HOUR, PT RESTLESS IN BED BUT REDIRECTABLE, PT STARTING TO SETTLE, PT RESTING ON LEFT SIDE, BED ALARM HAS BEEN SET, PADILLA INPLACE, DENTAL TECH LEAVING THE RM, NO FURTHER NEEDS AT THIS TIME
--- NOTE | 2021-02-20 02:15 | NUR ---
IN WITH PT AGAIN, PT PROVIEDED WITH ICE WATER, RN IN TO CHECK ON PT, PT IS RESTLESS AT THIS THIS TIME, SITTING AT BEDSIDE WITH PT
--- NOTE | 2021-02-20 02:30 | NUR ---
RESTLESS, TRYING TO CAWL OUT OF BED, NON RECEPTIVE, STATES YES WHEN ASKED IF HE IS IN PAIN. MEDICATED WITH DILAUDI 1MG IV AND FLEXERIL, BED ALARM ON ACID WASH OPERATOR IN ROOM
--- NOTE | 2021-02-20 03:20 | NUR ---
pt has been restlest, bed alarm set off, in to sit with pt, pt redirected a few time, pt sits up in bed resting eyes, observing pt from outside of room, bed alarm is set
--- NOTE | 2021-02-20 06:00 | NUR ---
in to get vitals, restrepo emptied again at this time, pt awakes to voice, no further needs at this time
--- NOTE | 2021-02-20 06:06 | NUR ---
Pt has been awake off and on, restless, anxious, agitated, not easily redirectable at times, all procedures explained not receptive at times, and compliant at others. forgetful. on room air. IVF infusing w/o problems site intact. tolerating fluids well. c/o hip hurting, has been medicated with dilaudid IV 1mg 5X, gabapenting 1X, flexeril 1X and Tylenol 1x, semi effective. received Metropolol per tachychardia, tele#[address], sinus tachy, current at 112.. 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 Does try to and is able to swing leg over rails. required closed supervision most of this shift. was unable to void, bladder scanned several times. 16fr Cudet f/c was inserted with inmediate return of dark yellow urine. not chronic. Pt has been pulling at IV and f/c tuning, reuires multiple cues. currently was coop [facility] vitals, assessment and blood draw, awakes easily. tolerating liquids and po meds well. Bed and chair alerm for fall [precautions, aspiration precautions in place, no bm this shift.
--- NOTE | 2021-02-20 07:32 | NUR ---
pt is restless, in to check on pt, pt wanted water, then bedside table, then pt told this healthcare administrative assistant to take it away, left it for pt, no furter needs, bed alarm is set
--- NOTE | 2021-02-20 08:15 | NUR ---
PT RESTLESS IN BED, PLACED ON BED CALDERÓN TO ATTEMPT TO HAVE BM, PT WAS UNABLE TO HAVE BM. CONTINUES TO BE CONFUSED AND RESTLESS. REPOSITIONED IN BED. PT ASSISTED UP TO COMMODE, HE IS NOTED TO HAVE JERKING MUSCLE MOVEMENT, SPOUSE ON PHONE REPORTS THAT IS NOT NORMAL FOR HIM. WILL REPORT TO IN AM ROUNDING MEETING BY NEIGHBORHOOD COORDINATORRODGER COLMENARES.
--- NOTE | 2021-02-20 09:18 | NUR ---
SECURITY GORMAN IS AT BEDSIDE. FOR 1:1
--- NOTE | 2021-02-20 10:04 | NUR ---
PT RESTING IN BED, ALERT REPORTS NAUSEA, PHENERGAN 12.5 MG IV GIVEN NOW, PT REQUEST ICE CHIPS, TOLERATING WELL. CAREGIVER TRAY FOR MOM AT BEDSIDE ORDERED. PT DOES NOT REPORT ANY PAIN AT THIS TIME.
--- NOTE | 2021-02-20 10:37 | NUR ---
PT GIVEN TRAZADONE ONE TIME DOSE AT THIS TIME, ALSO HE REPORTS PAIN "ALL OVER" HE CONTINUES TO ATTEMPT TO GET OUT OF BED, ROCKING TO THE RIGHT SIDE, UNABLE TO RE-DIRECT, CONTINUES TO SPEAK IN A CONFUSED BROKEN SENTENCE. HIS CALLED THIS AM AND SHE REPORTED THIS IS NOT HIS BASELINE. AND STAFF MONITORING. PT ALSO ON TELEMETRY TO MONITOR CARDIAC.
--- NOTE | 2021-02-20 11:45 | NUR ---
PT RESTING IN BED, EYES CLOSED RR EVEN REGULAR. NO DISTRESS NOTED. HIS STEPPED OUT TO MAKE PHONE CALLS TO FAMILY
--- NOTE | 2021-02-20 12:06 | NUR ---
PT NOW HAS TWO SUPPORT FAMILY MEMBERS AT BEDSIDE, AND DAUGHTER.
--- NOTE | 2021-02-20 13:27 | NUR ---
PT CONTINUES TO INTERMITTEN TRY TO LEAN OUT OF BED, HE IS CONFUSED, HE WAS ABLE TO CLEARLY REPORT PAIN 8/, 1MG IV DILAUDID ADMINISTERED PRN. PT HAD BRIEF MALE VISITOR. AND DAUGHTER LEFT AN HOUR AGO, MEGHAN WAS VERY EMOTIONAL/CRYING.
--- NOTE | 2021-02-20 13:45 | NUR ---
PATIENT BED. PATIENT NOT ABLE TO ANSWER QUESTIONS APPROPRIATELY. STAFF KEEPING CLOSE EYE ON PATIENT WHILE FAMILY TOOK A BREAK. WILL CHECK BACK LATER.
--- NOTE | 2021-02-20 13:54 | NUR ---
PT RE-POSITIONED IN BED, HE REPORTS MUCH MORE COMFORTABLE. HE NOW APPEARS TO BE SLEEPING, EYES CLOSED RR EVEN, RELAXED POSITION.
--- NOTE | 2021-02-20 15:10 | NUR ---
SPOUSE CALLED FOR UPDATE, ALSO WITH CONCERNS ABOUT PT CURRENT CONFUSION. DISCUSSED WITH AND RELAYED PT IS VERY ILL AND ALSO HASNT SLEPT IS FIGHTING MEDICATIONS WANTS TO LEAVE, WILL LIKELY HAVE IMPROVED MENTATION. WILL CALL TO UPDATE.
--- NOTE | 2021-02-20 16:57 | NUR ---
PATIENT SLEEPING SOUNDLY. NO FAMILY PRESENT. FLIGHT SOFTWARE TEST ENGINEER STATES PATIENT CAN ANSWER SOME QUESTIONS AT TIME, OTHER TIMES MORE CONFUSED AND IMPULSIVE. STATES HE LIVES WITH WHO IS HIS CAREGIVER. PATIENT SMOKES BUT IS REPORTED DOES NOT DRINK ANYMORE. STATES PATIENT USES [facility] AND USUALLY TRANSFERS SELF, BUT HASN'T BEEN ABLE TO HERE. STATES SAYS HE IS FUNCTIONAL BUT CONFUSED NORMALLY. [facility] AND [facility] TO BE [facility] THERE POSSIBLY. STATES PLANS FOR HIM TO RETURN HOME AFTER HE IS BACK TO BASELINE. UNABLE TO REACH [facility] TODAY DUE TO SOME MASSIVE PHONE OUTAGE IN THAT AREA.
--- NOTE | 2021-02-20 17:34 | NUR ---
PT RESTLESS REPORTS STOMACH PAIN HOLDING HIS ABD. DILAUDID 1MG GIVEN PRN AT THIS TIME. PT CONTINUES TO WANT TO GET OUT OF BED TO GO HOME. HE IS VERY WEAK AT THIS TIME AND WAS UNABLE TO ASSIST WITH TRANSFER THIS AM. PT DID NOT SLEEP OVER NIGHT LAST NIGHT.
--- NOTE | 2021-02-20 17:37 | NUR ---
PT WAS ABLE TO TAKE A COUPLE OF SIPS OF WATER WITH SMALL STRAW WITHOUT COUGHING. TOLERATED WELL.
--- NOTE | 2021-02-20 17:54 | NUR ---
PT HAS BEEN CONFUSED AND WANTING OUT OF BED MOST OF SHIFT, TWO SMALL NAPS 30MINS EACH, REPORTS ABD PAIN. PADILLA IN PLACE. IV INFUSING. AND DAUGHTER HAS BEEN UP TO VISIT. ATTEMPTED TO TRANSFER TO COMMODE THIS AM, PT WAS VERY WEAK AND UNABLE TO ASSIST. WAS UNABLE TO HAVE BM ONCE ON COMMODE. BED ALARM IN PLACE. NICOTINE PATCH TO LEFT SHOULDER. SPOUSE SAID AT BASELINE HE IS ABLE TO TRANSFER HIMSELF AT HOME.
--- NOTE | 2021-02-20 21:00 | NUR ---
PT TRYING TO GET OUT OF BED REPEATING "HELP ME" ASSISTED TO REPOSITION PT AND TRYING TO KEEP HIM FROM GETTING OUT OF BED. GRIFFIN RN IS IN ROOM AT THIS TIME AND GIVING MEDS.
--- NOTE | 2021-02-20 21:11 | NUR ---
RESTLESS, TRYING TPO GET OUT OF BED, BED ALRM GOING OFF. ON ROOM AIR, NOT VERY COOPERATIVE OR FOLLOWING INSTRUCTIONS DUE TO ANXIETY AND COGNITIVE CHANGES, ALERT TO NAME ONLY. LUNGS DIM AT BASES, UNABLE TO GET A SAT READING IN HANDS DUE TO PT BEING VERY FIDGETTY AND PULLING O2 SAT FROM FINGER. F/C PATENT, DRAINING YELLOW URINE. R AKA, L LEG WITH TOES REMOVAL. FIDGETS AND RESTLESS IN BED, BED ALRM ON, TOLERATED MEDS WELL. C/O 'IM SUZETTE WONG'. MEDICATED WITH DILAUDI 1MG IV, AND GABAPENTIN, TRAZADONE FOR INSOMNIA GIVEN TOO. FALL AND ASPIRATION PRECAUTIONS IN PLACE
--- NOTE | 2021-02-20 21:49 | NUR ---
IN ROOM TRYING TO KEEP PT IN BED. O2 SAT WAS 88% ON RA. ASKED RT TO SET UP EAR PROB PT HAS COLD HANDS AND THICK NAILS. WITH EAR PROB ON 4LNC PT WAS AT 90%. PT IS BREATHING THROUGH MOUTH ALOT AND HAS NC IN PLACE. TRIED SWITCHING TO OXYMASK BUT PT WILL NOT LEAVE IT IN PLACE. PT IS NOW LEAVING OM ON. PT IS RESTING WITH EYES CLOSED, BED ALARM IS ON.
--- NOTE | 2021-02-20 22:01 | NUR ---
o2 placed on, was satting 85-88% room air, cpox at bedside, calmer
--- NOTE | 2021-02-20 22:19 | NUR ---
RESTLESS, PULLING AT IV AND O2 TUBES, F/C PATEN. o2 4lnc, MEDICATED WITH DILAUDID 1MG IV, flacc SCALE OF 4
--- NOTE | 2021-02-21 00:32 | NUR ---
MEDICATED WITH DILAUDID 1MG IV, C/O HIP PAIN. O2 INPLACE, TAKES IT OFF, SATS 88-91% ON 2L NC. BED ALARM ON
--- NOTE | 2021-02-21 02:42 | NUR ---
TOOK O2 OFF, CPOX GOING OFF, DECLINES TO HAVE CPOX OR O2 TUBING BACK ON, INCREAED RESATLESSNESS AND AGITATION. MEDICATED WITH DILAUDID 1MG IV. IN BED, REPOSITIONS SELF. IVF INFUAING, MOIST NONPRODUCTIVE COUGH PRESENT, BED ALRM ON, TOOK SIPS OF FLUIDS
--- NOTE | 2021-02-21 02:56 | NUR ---
IN ROOM D/T BEEPING CPOX. PT GOT LOW 79% ON RA AFTER HE REMOVED HIS NC. AFTER STAYING IN ROOM A WHILE WITH PT HE NOW HAS 6LNC ON AND SET UP BLOWBY WITH OXIMASK TO GET PT TO 90%. PT DOES NOT TOLERATE WEARING OM. PT IS RESTING WITH EYES CLOSED, RR IS EVEN AND NONLABORED. CALL LIGHT IS CLOSE AND BED ALARM IS ON.
--- NOTE | 2021-02-21 03:16 | NUR ---
pulse 118-127, received propranolo 5mg IV. takes o2 off, desats to low 80%, blowby oxymask 10L on left side of face as he keeps pulling it up, cpox in place, sats 90%. f/c patent, tele#5 tachychardia reading
--- NOTE | 2021-02-21 05:44 | NUR ---
PT HAS BEEN ON ROOM AIR AT BEGINING OF SHIFT, DESSATED TO MID 70'S AND WAS PLACED ON O2, TITRATED UP TO 6L, THEN 2, THEN 4, THEN 6, NC, TAKES IT OFF, OXYMASK ON SIDE 10L BLOWBY. SATS 88-91%. LUNGS DIM AT BASES, SHALLOW BREATHING, MOIST PRODUCTIVE COUGH PRESENT. TOLERATING SIPS OF FLUIDS. HAS BEEN MEDICATED WITH DILAUDI Q2H C/O PAIN, PT CONTINUES TO BE VERY RESTLESS, AGITATED, CONFUSED, BED ALARM ON RAKA, L TOES REMOVAL. NOT RECEPTIVE TO TEACHING/CUES DUE TO COGNITIVE DEFICIENCIES. IV INFUSING W/O PROBLEMS.
--- NOTE | 2021-02-21 06:39 | NUR ---
Dr Rosales notified of pts, receiving 2 doses of propanolol for sustained heart rate of over 120, with no changes, of run of SVPB and multiform PVC's, placiang pt on O@, lung sdim, frequent moist cough, new to pt. aand of high IV rate. new orders to decreae IV to 75. Continues with propanol as oredered, and with O2. will assess in am
--- NOTE | 2021-02-21 07:30 | NUR ---
BEDSIDE REPORT FROM GRIFFIN RN, SAID PT HAD SLEPT INTERMITTENLY, HE IS NOTED TO CONTIUE TO HAVE ANXIETY AND FORGETFULNESS, HE REMAINS TACHYCARDIC DESPITE 2 DOSES OF LOPRESSOR OVERNIGHT, UPDATED PER GRIFFIN'S REPORT. AT BEDSIDE PT SAID HE NEEDS A BEDPAN, BEDPAN PLACED, PT REPORTED INCREASE PAIN WITH MOVEMENT, DILAUDID PRN GIVEN WITH AM BED PASS. PT IS NOTED TO HAVE [place]UNKIE/LOOSE/MOIST COUGH THIS AM.
--- NOTE | 2021-02-21 07:55 | NUR ---
PT 97% ON ROOM AIR, CHEST XRAY ORDERED, PT GIVEN THIS AM DOSE OF METOPROLOL NOW.
--- NOTE | 2021-02-21 08:09 | NUR ---
PT'S IS AT BEDSIDE. UPDATED ON OVERNIGHT, PER GRIFFIN RN REPORT
--- NOTE | 2021-02-21 09:15 | NUR ---
PT MORE COMBATIVE NOW, BIAS MACHINE OPERATORRODGER COLMENARES ASSISTING WITH RE-DIRECTING PT. PT LEO FOLLOW ING DIRECTIONS
--- NOTE | 2021-02-21 09:44 | NUR ---
pt resting in bed, lopressor 5mg iv prn given for sustained heart rate greater than 120, 129 bpm at this time. abx started for lll pne noted on cxray this am. lasix given per mb order.
--- NOTE | 2021-02-21 09:45 | NUR ---
Patient is resting, vitals, I&Os are complete.
--- NOTE | 2021-02-21 10:39 | NUR ---
CALLED TO GIVE SPOUSE MEGHAN AND UPDATE ON PATIENT. NO ANSWER, MESSAGE LEFT SAYING, "I'M JUST CALLING TO GIVE AN UPDATE, I WILL TRY TO CALL AGAIN LATER, DIRECT NUMBER HERE IN [phone], THANK YOU"
--- NOTE | 2021-02-21 11:35 | NUR ---
PT RESTING QUIETLY IN BED EYE CLOSED RR EVEN, 91% ON 2L N.C., ON TELEMETRY TO MONITOR HEART RATE AND CARDIAC ACTIVITY.
--- NOTE | 2021-02-21 13:27 | NUR ---
Patient seems to be holding onto the bedside rail and periodically falling back to sleep. Vitals, I&Os are compplete. Patient was given a few sips of water.
--- NOTE | 2021-02-21 14:08 | NUR ---
ENEMA GIVEN TO RESULTS OF NOW. PT RESTING INTERMITTENLY
--- NOTE | 2021-02-21 14:55 | NUR ---
RESPIRATORY KIKO CALLED TO COME ASSESS PT HE IS REQUIRING 4L OF OXYGEN NOW TO REACH 85%, KIKO CAME ASSESSED PT REPOSITIONED OXIMETRY PROB. PT CONTINUES TO TRY TO REMOVE OXYGEN N.C. AND OXIMETRY PROB. NOTIFIED FINANCIAL AIDS OFFICERRODGER COLMENARES AND MOSAIC TECHNICIAN OF NEED FOR 1:1 TO ENSURE OXYGEN STAYS ON. PT NOW AT 89-90% OXYGEN SATURATION.
--- NOTE | 2021-02-21 15:08 | NUR ---
PT VERBALIZED HAVING PAIN, HE RESTLESS AND SQUIRMING IN BED. HE MOANING FREQUENTLY. 1MG IV DILAUDID PRN GIVEN NOW
--- NOTE | 2021-02-21 15:16 | NUR ---
UPDATED ON PT CURRENT STATUS, OXYGEN REQUIREMENTS, LUNG SOUNDS.
--- NOTE | 2021-02-21 17:07 | NUR ---
PT VERY RESTLESS, HE VERBALIZES WANTING OUT OF BED, HE VERBALIZED HAVING PAIN IN ABD, GRIMACE WITH TURNING, NOTED TO BE TENDER AT HIPS/LOWER BACK WITH ROLLING. PT RE-POSITIONED AND GIVEN 1MG IV DILAUDID FOR PAIN AT THIS TIME FOR 7/10 PAIN NON-VERBAL SCALE.
--- NOTE | 2021-02-21 18:28 | NUR ---
PT HAS BEEN CONFUSED AND AGGITATED INTERMITTEN, HAS BEEN DIFFICULT TO MANAGE KEEPING OXYGEN ON PATIENT, FREQUENT CHECKS, WAS GIVEN FLEETS ENEMA WITH NO STOOL OUT. NOTED TO BE PAINFUL TO ROLL, DILAUDID GIVEN APPROX. EVERY 2 HOURS TO MAINTAIN COMFORT ALSO REPOSITIONING REGULARLY WITH PAIN MEDICATION FOR COMFORT. HE HAS BEEN ON 4L OXYGEN, NOTED TO HAVE LLL PNE IN THIS AM CHEST XRAY. THIS AM GLUCOSE WAS 54, ACCU CHECK THIS AFTERNOON 91.
--- NOTE | 2021-02-21 19:57 | NUR ---
resting, no distress, O2 in place, IVf infusing, bed alarm on
--- NOTE | 2021-02-21 20:23 | NUR ---
RESTLESS, PUSHING AT NURSE WHEN SHE TRIED TO HELP HIM, TOOK O2 TUBING OFF NARE AND EAR CPOX. PULLING AT IV TUBEING. ON BLOWBY 10 BY OXYMASK, EAR CPOX IN PLACE AGAIN, MOIST NON PRODUCTIVE COUGH PRESENT. LUNGS WITH CRACKLES BILAT. SHALLOW BREATHING HE IS UNABLE TO FOLLOW INSTRUCTIONS FOR CDB. NIVF INFUSING LW, PATENT. F/C PATENT, DRAINING YELLOW URINE. ABD LUKE. R AKA, L TOES AMPUTATEDD, ACTIVE IN BED. BED ALARM ON, ASPIRATION AND FALL PRECAUTIONS IN PLACE. MEDICATED WITH DILAUDID 1MG IV AND GABAPENTING PER FLACC 5 PAIN SCALE. TRAZADONE 150MG PO GIVEN, TOOK 150CC ORANJE JUICE W/O PROBLEMS AFTER SEVERAL CUES, TOOK MED WELL AFTER SPITTING THEM OUT 3X. ABLE TO SWALLOW WELL. CONFUSED, BELLIGERENT AND IRRITABLE, CONTINUE TO OBSERVE AND CHANGE TO O2 NC WHEN CALMER OR SLEEP.
--- NOTE | 2021-02-21 21:46 | NUR ---
LOPRESSOR GIVEN DUE TO SUSTAINED PULSE OF OVER 127. ON BLOW BY O2, CPOX 88%, AWAKE, TAKES BLOW BY OFF. IVF INFUSING
--- NOTE | 2021-02-21 22:13 | NUR ---
PT'S CPOX WAS BEEPING, HE PULLED THE BLOWBY OXYMASK AWAY. HE WAS MOANING AND MOVING AROUND IN BED. ASKED PT IF HE IS IN PAIN HE STATES "YES MAAM" ADMINISTERED 1 MG IV DILAUDID SLOWPUSH/DILUTED FOR FLACC OF 5/10. PT IS RESTING WITH EYES CLOSED INCREASED BOWBY 02 TO 10L TO KEEP AT 90%. CALL LIGHT IS CLOSE AND BED ALARM IS ON.
--- NOTE | 2021-02-21 23:02 | NUR ---
DR REINA CALLED AND NOTIFIED OF PRE CCU NURSE PT IS HAVING MORE FREQUENT BURSTS OF V TACH AND SVT'S. NEW ORDER FOR PROPANOLOL IV 5MG X1
--- NOTE | 2021-02-21 23:26 | NUR ---
MEDICATED WITH METROPOLOL 5MG IV PER ORDERS
--- NOTE | 2021-02-22 00:13 | NUR ---
RESTING, NO DISTRESS, EAR CPOX IN PLACE, TAKES BLOWBY O2 OFF, REPOSITIONING TELE#5 WITH FREQUENT RUN OF MULTIFORM AND PAIR OF PVC'S, , PT ASYMPTOMATIC AND RESTING. IRREGULAR PULSE 90-140'S. CONT OT OBSERVE AND NOTIFY MD YAO
--- NOTE | 2021-02-22 02:02 | NUR ---
PT KEEPS PULLING AT O2 TUBING AND THRASHING ARMS AROUND MOANING AND MAKING VARIOUS SOUNDS. PT NOT ABLE TO STATE HE IS HAVING PAIN BUT ANSWERS YES TO BEING UNCOMFORTABLE. ADMINISTERED 1MG IV DILAUDID SLOW PUSH DILUTED. PT NOW APPEARS MORE COMFORTABLE AND ABLE TO LEAVE O2 IN PLACE BY FACE ON BLOWBY. CALL LIGHT IS CLOSE AND BED ALARM IS ON.
--- NOTE | 2021-02-22 03:32 | NUR ---
LOPRESSOR 5MG IV GIVEN P ABOVE 120'S SUSTAINED, PER TELE, GOES BETWEEN ST AND SV TACH, HAS HAD SEVERAL RUNS OF MULTIFORM PVC'S, DENIES CP, BLOWBY O2 AT BEDSIDE, REPOSITIONED MANY TIMES, CPOX IN PLACE, SATS 84-90%.
--- NOTE | 2021-02-22 04:39 | NUR ---
pt restless moaning, medicated with Dilaudid 1mg IV, blowby O2 at 10L, cpox in place, drps to 79-92%, takes O2 off. Lungs with fine crackles and dim at bases, moist frequent non productive cough noted. tele#[address], irregular rhythm, afib-tachychardia nd SV Tach with SPVC's. Has received 3 doses of metropolol IV. pt asymptomatic. Dr Rosales was notified last night and 1X dose of lopressor was obtained. f/c patent. to be notified that above meds are not being effective in controlling rate
--- NOTE | 2021-02-22 06:33 | NUR ---
Dr Rosales notified at this time of pts irregular heart rate 120-156 and 1x 170, rhythm as per tele running between SV Bkey-QWNS-Sijmn tach, several runs of multiform and pairs of PVCS. rate not controlled after 3 doses of Lopressor 5mg IV. asymptomatic, continues on blow by O2. no new orders.
--- NOTE | 2021-02-22 06:51 | NUR ---
Pt currently on 10L blowby O2, ear cpox at bedside between mid 70's to 90% takes blowby O2 off and cpox reader., lungs with crackles and dim, moist non productive cough very frequent at begining of shift, rare at this time. tele#[address], irregular rate between 120-150's, rhythm between irregular rate- SV Tach - AFIB- Sinus tach, numerous runs of multiform and pair SVT's and SVPB's. asymptomatic. Received 3 doses of Lopressor, not effective regulating rate. Dr Rosales notified and new orders received earlier on shift. updates at end of this shift. No new orders IVF infusing, no c/o adverse reaction to IV abx. Has been medicated with Dilaudid 1mg IV 4X per moaning and restlessness, states he is on pain when asked to but is unable to identify specifics, confused, irritable at begining of shift, redirectable at times. no bm this shift. f/c patent, draining dark yellow urine with strong smell. DAISY and
--- NOTE | 2021-02-22 07:30 | NUR ---
Dr Rosales notified of critical lab value K of 2.5, no new orders, primary incoming RN aware
--- NOTE | 2021-02-22 07:39 | NUR ---
this rn received report from lani hays. pt appears to be resting comfortably at this time with deep and even resps noted. cpox in place
--- NOTE | 2021-02-22 07:55 | NUR ---
this rn in pts room to reajust pts oxygen due to monitor not reading sats. this rn attempted to place pt on the oxymask instead of blow by. pt ripped mask off prior to it even getting all the way on. this rn attempted to place pt on nasal cannula but pt half took this off, this rn increased oxygen flow in this to give pt bloow by oxygen on the nasal cannula. pts sats at this time greater than 90
--- NOTE | 2021-02-22 08:18 | NUR ---
this rn in pts room due to noting pts hr sustained over 120 and actually having spiked to 170. this rn provided pt with 5mg of metoprolol iv per md orders. this rn provided pt with 1mg of diluadid due to pt stating in his sleep "ow my back"
--- NOTE | 2021-02-22 08:55 | NUR ---
PT RESTLESS IN BED AND UNWILLING TO KEEP OXYMASK ON FACE. THIS SASH REPAIRER, ANDREA MARTÍNEZ, AND ANDREA MATHEWS GAVE BEDBATH TO PT. PT HAD BM. PT ANGRY AND UNABLE TO FOLLOW VERBAL CUES. PT GRABBING AND PULLING SASH REPAIRER'S REPEATING "KNOCK IT OFF. DONT DO THIS TO ME. QUIT IT." PT NOW IN BED WITH CPOX MACHINE ATTACHED TO RIGHT EAR. CALL LIGHT WITHIN REACH. NO FURTHER NEEDS AT THIS TIME.
--- NOTE | 2021-02-22 09:15 | NUR ---
THIS RN IN PTS ROOM TO GIVE PT HIS MORNING MEDS. PT ABLE TO SWALLOW PILLS OKAY WITH HEAD ELEVATED. PT APPEARS TO NOT BE COGNITIVELY AWAARE THIS AM OF HOW TO USE THE STRAW. PT ATTEMPTING TO FULL CABLES OFF. THIS RN REPOSITIONED PT AND PROVIDED HIM WITH A GLOVE FILLED WITH WARM WATER, THIS APPEARS TO HAVE SOOTHED PT.
--- NOTE | 2021-02-22 09:41 | NUR ---
VERBALIZED TO THIS RN THAT SHE ATTEMPTED TO CALL PT'S SPOUSE TO UPDATE IN REGARDS TO PT TRANSFERING TO CCU
--- NOTE | 2021-02-22 10:40 | NUR ---
THIS RN PROVIDED REPORT TO KIYA SOARES.
--- NOTE | 2021-02-22 11:00 | NUR ---
PT AT THIS TIME ARRIVED FROM CT. PT NOT ORIENTED. ALL LOBES HAVE RATTLES PRESENT. NO EMDEMA PRESENT.
--- NOTE | 2021-02-22 13:45 | NUR ---
RT COLLECTED RAPID COVID 19 SWAB USING IN HOUSE LAB WITH NO COMPLICATIONS AT THIS TIME.
--- NOTE | 2021-02-22 13:46 | NUR ---
ADMINSITERED DILAUDID FOR RESTLESS AND PT ANSWERED YES TO IF HE HAS PAIN. RT DERRECK IN ROOM TO TRY ON CPAP. PT NOT TOLERATING CPAP WELL.
--- NOTE | 2021-02-22 13:50 | NUR ---
AT 1300 PT HAD TO BE PUT ON NON-REBREATHER AT 15+ L O2. O2 SATS WERE 82% ON 15L O2 HIGH LOW NC. RT WAS CALLED FOR A COVID SWAB DUE TO CT RESULTS. PT ALSO TO BE PUT ON C-PAP.
--- NOTE | 2021-02-22 15:30 | NUR ---
PT IN ROOM. PT KEEPS REQUIRING DILAUDED THOUGH. WILL CONTINIUE TO MONITOR. C-PAP AT 100%.
--- NOTE | 2021-02-22 17:52 | NUR ---
PT IN ROOM. DILTIAZAM DRIP AT 6.5MG. PT RESTING ON C-PCP ON 100%.V/S WDL. ALL LOBES HAVE RATTLES PRESENT. NO NEW CONCERNS NOTED OTHERWISE.
--- NOTE | 2021-02-22 20:12 | NUR ---
PT MOANING, PULLING AT CPAP AND NRB MASK, 1MG IV DILAUDID GIVEN.
--- NOTE | 2021-02-22 20:14 | NUR ---
CALL TO DR COOMBS TO INFORM HER OF PT NOT ABLE TO TAKE PILLS OR SIPS OF WATER, NO NEW ORDERS AT THIS TIME, WILL CONT TO REEVALUATE PTS ABILITY TO TAKE PO.
--- NOTE | 2021-02-22 20:20 | NUR ---
ASSESSMENT COMPLETED. PT LUNGS SOUND COARSE THROUGHOUT WITH RATTLES HEARD WELL. PT IS TACHYPENIC, AND PT IS ANXIOUS AND MOANING, PULLING OFF OXYGEN. SATURATIONS DROP INTO THE [address] PULSES ARE IRREGULAR AND WEAK RADIALLY. PADILLA CARE PROVIDED, CALL LIGHT WITH REACH AND BED ALARM IN PLACE, WILL CONTINUE TO MONITOR.
--- NOTE | 2021-02-22 21:20 | NUR ---
1MG IV DILAUDID GIVEN FOR PTS AGITATION, MOANING. STATES YES TO DR COOMBS WHEN SHE ASKS HIM IF HE IS IN PAIN.
--- NOTE | 2021-02-22 21:30 | NUR ---
PT TOOK OF OXYGEN, MOVED SELF TOWARD BOTTOM OF BED. REPOSITIONED PT. DR COOMBS IN ROOM AT THIS TIME TO ASSESS PT'S CURRENT CONDITION.
--- NOTE | 2021-02-22 23:00 | NUR ---
PT GIVEN PRM PAIN MEDICATION FOR RESTLESSNESS, AND GROANING AT THIS TIME (SEE EMAR).
--- NOTE | 2021-02-22 23:28 | NUR ---
PT UNWILLING TO KEEP OXYGEN ON FACE, SPO2 = 69% ON ROOM AIR. DOCTOR CORIN GUERRERO. ORDER RECIEVED FOR WRIST RESTRAINTS AT THIS TIME. SPO2= 92% ON 15+ L ON NON REBREATHER. BED ALARM IN PLACE. DILTIAZEM DRIP REMAINS INFUSING AT SAME RATE (SEE EMAR). HR AT 90-100 BPM. WILL CONTINUE TO MONITOR.
--- NOTE | 2021-02-23 01:12 | NUR ---
PT GIVEN 1MG IV DILAUDID TO KEEP HIM FROM TRYING TO PULL OXYGEN OFF.
--- NOTE | 2021-02-23 03:00 | NUR ---
PT HAS REMAINED RESTFUL SINCE LAST DOSE OF DILAUDID, CARDIZEM DRIP INFUSING AND NRB 15+L IN PLACE.
--- NOTE | 2021-02-23 04:50 | NUR ---
IN TO REPOSITION PT AND DO ASSESSMENT. PT AWAKENS AND STARTS PULLING OFF O2 MASK AND FIGHTING. 1 MG IV DILAUDID GIVEN, PT CALMING DOWN AFTER MED GIVEN. RESTRAINTS IN PLACE.
--- NOTE | 2021-02-23 05:41 | NUR ---
DILTIAZEM DRIP TITRATED DOWN TO 3 MG/HR FOR HEART RATE WNL AND DECREASING SYSTOLIC BLOOD PRESSURES.
--- NOTE | 2021-02-23 07:00 | NUR ---
RECEIVED REPORT AT 0700, PT IN BED CALM ON C-PAP.
--- NOTE | 2021-02-23 09:00 | NUR ---
ALL LOBES ARE VERY COARSE. PT NOT ALERT ENOUGH TO TAKE PO MEDICATION. PT ON C-PAP AT 60%, ABD SEEMS TENDER TO TOUCH ON THE RIGHT SIDE. BOWEL TONES ARE HYPOACTIVE. NO EDEMA NOTED. PT SEEMS PAINFUL, PT NOT REALLY ALERT. PRN DILAUDED 1MG IV GIVEN. PRECEDEX WAS SUGESTED TO KEEP PT CALM AND FROM CLIMBING OUT OF BED WELL FROM TEARING HIS C-CAP OFF HIS FACE. NO NEW ORDER RECEIVED. DILTIAZAM DRIP NOW AT 5.5MG/HR. WILL CONTINUE TO MONITOR.
--- NOTE | 2021-02-23 10:04 | NUR ---
MD COOMBS WAS NOTIFIED OF PT INABILITY TO TAKE PO.
--- NOTE | 2021-02-23 10:45 | NUR ---
PT REPOSITIONED ONTO LEFT SIDE, RIGHT HIP FLOATED WITH A PILLOW.
--- NOTE | 2021-02-23 12:03 | NUR ---
MD COOMBS WAS CALLED AT 1200 DUE TO PT STATING THAT HE HAS CHEST PAIN. ORDERS TO FOLLOW.
--- NOTE | 2021-02-23 13:30 | NUR ---
AT 1313 PT HAD 8 SEC. V-TACH. MD COOMBS WAS CALLED AND SHE CAME OVER. PT WAS STILL STATING THAT HE WAS IN PAIN, CHEST AND ABD. KUB AND CHEST X-RAY WERE ORDERED. BP'S LOW AND HIGH. HR WDL TO 140'S. MD TO CALL FAMILY. PT REMAINS RESTLESS AT TIMES. WILL CONTINUE TO MONITOR.
--- NOTE | 2021-02-23 14:30 | NUR ---
PT AT THIS TIME HAS LEFT CCU FOR ROOM 121 ON COMFORT CARE.
--- NOTE | 2021-02-23 14:30 | NUR ---
Pt arrives to med surg unit via stretcher and remains on CPAP. Pt awakens briefly to voice and makes eye contact, drowsy and returns to sleep. Gown and linens changed, pt repositioned in bed with pillows with MATERIALS BUYER assistance. Pt resting with eyes closed, breaths even and unlabored at 10BPM. Awaiting arrival of patient's , this RN at bedside.
--- NOTE | 2021-02-23 16:07 | NUR ---
Dilaudid SENIOR LOAN PROCESSOR pump infusing per order, pt resting in bed with eyes closed, even and unlabored breathing on CPAP, family gathered at bedside.
--- NOTE | 2021-02-23 16:30 | NUR ---
Discussed plan of care with patient family and senior care manager Frances. Family is receptive and verbalizes understanding.
--- NOTE | 2021-02-23 17:16 | NUR ---
With family approval CPAP is removed. Oral care complete, pt unlabored and even breaths. Family at bedside.
--- NOTE | 2021-02-23 18:35 | NUR ---
Rounded on patient who is resting in bed with family gathered. He has an even and unlabored breathing pattern. Patient's family member at bedside has portable o2 monitor and reports pt SPO2 69%. Family denies any needs at this time. Will continue to monitor.
--- NOTE | 2021-02-23 18:57 | EKG ---
[facility] [address] [place] [id number] Signed Sinus rhythm with marked sinus arrhythmia Nonspecific T wave abnormality Abnormal ECG When compared with ECG of 18-FEB-2021 16:05, Nonspecific T wave abnormality now evident in Inferior leads Confirmed by HARLEY LILLY MD ([id number]) on 02/23/2021 6:57:10 PM Electronically Signed By: HARLEY LILLY MD 02/23/21 1857 PATIENT NAME: TAYLOR MUELLER Electrocardiogram DATE OF : 49 PHYSICIAN: HARLEY LILLY MD REPORT #: [id number] REPORT IS CONFIDENTIAL AND NOT TO BE RELEASED WITHOUT AUTHORIZATION
--- NOTE | 2021-02-23 19:10 | NUR ---
SHIFT REPORT RECEIVED FROM MARVINIAMARIAH JARAMILLO AT BEDSIDE. pt RESTING IN BED WITH EYES CLOSED, REGULAR EVEN RESPIRATIONS NOTED WITH SNORING. LAUNDRY PRESS OPERATOR PUMP IN REACH, HYDROMORPHONE LAUNDRY PRESS OPERATOR RUNNING CONTINUOUSLY AT 0.5MG/HR WITH NS INFUSING CONCURRENTLY. FAMILY IN ROOM, COMFORT CHART IN ROOM.
--- NOTE | 2021-02-23 21:45 | NUR ---
ASSESSMENT COMPLETE, pt BOOSTED INBED AND REPOSITIONED, PILLOW IN LEFT SHOULDER. pt HERE FOR COMFORT MEASURES, FAMILY IN ROOM AND ATTENTIVE TO pt. pt RESTING QUIETLY IN BED WITH EYES CLOSED, WILL OPEN EYES WHEN REPSOTIONED BUT THEN RETURNS TO SLEEP. ORAL CARE COMPLETED TO BEST OF ABILITY, MOUTH SWABS AT BEDSIDE AND AVAILABLE TO FAMILY. HOB ELEVATED. PADILLA CATHETER PATENT, FAMILY DECLINED PADILLA CARE AT THIS TIME. NO DISTRESS NOTED, FAMILY REPORTS THIS IS THE MOST COMFORTABLE THEY HAVE SINCE pt ALL DAY, WILL CONTINUE TO MONITOR. THIS RN DISCUSSED POC AND GOALS OF COMFORT CARE WITH pt, FAMILY VERBALIZED UNDERSTANDING. NO FURTHER NEEDS, CALL LIGHT IN REACH. FRESH WATER PROVIDED TO pt.
--- NOTE | 2021-02-23 22:20 | NUR ---
DILAUDID PUMP CARTRIDGE REPLACED AND VERIFIED WITH MD ORDERS BY THIS RN AND SECOND RN MARY ANN. PER MD ORDERS, 4HR LIMIT IS 99MG, DISCUSSED WITH DAYSHIFT BUTCHER ART AT SHIFT CHANGE, PER RN ART THIS IS CORRECTLY ORDERED pt HAS NO LIMIT AND IS HERE FOR COMFORT MEASURES, BUT PUMP ONLY GOES UP TO 6MG ON 4HR LIMIT, THUS 6MG FOR 4HR LIMIT IS CORRECT. FAMILY DENY NEEDS OR CONCERNS, CALL LIGHT IN REACH.
--- NOTE | 2021-02-24 00:32 | NUR ---
IN ROOM TO ROUND ON pt, pt RESTING IN BED WITH EYES CLOSED. RR APPROX 16-18, SNORING HEARD. NO DISTRESS NOTED, pt APPEARS VERY RELAXED AND COMFORTABLE. FAMILY WISHES NOT TO REPOSITION OR COMPLETE ORAL CARE AT THIS TIME TO ALLOW pt TO REST, WISHES GRANTED. NO FURTHER NEEDS, SENIOR EMBEDDED SOFTWARE ENGINEER BUTTON AND CALL LIGHT IN REACH.
--- NOTE | 2021-02-24 02:28 | NUR ---
IN ROOM TO ROUND ON pt, pt RESTING QUIETLY IN BED, EYES CLOSED. RR EVEN AND UNLABORED WITH AUDIBLE SNORING. BRISK BLOOD RETURN TO IV SITE, MONOGRAM MAKER PUMP WITH SALINE INFUSING DIRECTED. SON AWOKE WHEN THIS RN ENTERED ROOM, PER SON'S REQUEST pt ALLOWED TO REST AND NOT REPOSITIONED AT THIS TIME. NO FURTHER NEEDS OR CONCERNS VERBALIZED BY SON, CALL LIGHT AND MONOGRAM MAKER BUTTON REMAINS IN REACH OF pt.
--- NOTE | 2021-02-24 03:24 | NUR ---
@9544 FAMILY TO DESK, THIS RN IN, NO HEART BEAT X 60 SEC. NOTIFIED OPHTHALMIC ASSISTANT, DR LILLY, WELL PASTORIAL CARE, RADHA. DR LILLY TO FLOOR, PRIOR TO THIS NOTE. EXPLAINED TO FAMILY THE EVENTS THAT WILL TAKE PLACE, THEY HAVE NO PREFERENCE IN HOME. NOTIFIED DONOR NUMBER, FAXED INFORMATION REQUESTED. AWAIT CALL BACK.
--- NOTE | 2021-02-24 03:44 | NUR ---
SPIRITUAL CARE RADHA IN ROOM AND TALKING TO SON AND OTHER FAMILY. FAMILY DENY NEEDS AT THIS TIME.
--- NOTE | 2021-02-24 04:13 | NUR ---
IV SITES X2 AND PADILLA CATHETER REMOVED WITH HELP FROM HYDROELECTRIC PLANT MECHANICAL ENGINEERRODGER REESE. BODY CLEANED AND LAYING FLAT IN BED. AWAITING ARRIVAL FROM MORTUARY.
--- NOTE | 2021-02-24 05:00 | NUR ---
[employer] staff here, pt discharged.
--- NOTE | 2021-02-24 05:15 | NUR ---
I was called in to [facility] for PT's demise at 0254. When I arrived I checked in with the charge nurse, Martha, who was very helpful in giving me the information needed. PT's son and granddaughter were in the room. I offered them my condolences and visited with them. I offered prayer which they accepted and thanked me for. After they gave me permission, I called [facility] (at 0417) and they said their good-byes. [facility] arrived at 0453.
== END 2021-02-24 02:53 | DRG 393 ==
LOC: ED 13:26 → MS 13:28 → CCU 02-22 10:40 → MS 02-23 14:30
PROVIDERS: ADMIT Internal Medicine; ATTEND Internal Medicine
DX: K55.9 Vascular disorder of intestine, unspecified (principal); J18.9 Pneumonia, unspecified organism; I47.2 Ventricular tachycardia; K56.7 Ileus, unspecified; E11.51 Type 2 diabetes mellitus with diabetic peripheral angiopathy without gangrene; I10 Essential (primary) hypertension; Z51.5 Encounter for palliative care; K21.9 Gastro-esophageal reflux disease without esophagitis; Z20.822 Contact with and (suspected) exposure to COVID-19; Z66 Do not resuscitate; E78.5 Hyperlipidemia, unspecified; I25.10 Atherosclerotic heart disease of native coronary artery without angina pectoris; F17.200 Nicotine dependence, unspecified, uncomplicated; I48.91 Unspecified atrial fibrillation; R45.1 Restlessness and agitation; Z78.1 Physical restraint status; Z79.82 Long term (current) use of aspirin; Z89.611 Acquired absence of right leg above knee; Z98.890 Other specified postprocedural states; Z88.4 Allergy status to anesthetic agent; Z79.02 Long term (current) use of antithrombotics/antiplatelets; Z79.899 Other long term (current) drug therapy
CPT/HCPCS: 36600; 51701; 71045; 71046; 71260; 74018; 74177; 80048; 80053; 81001; 82803; 83605; 83690; 83735; 83880; 84484; 85007; 85025; 85610; 87502; 93005; 93010; 94660; 94760; 96375; 96376; 99285-25; C9113; C9803; G0378; J0692; J1170; J1650; J1940; J2270; J2405; J2765; J3475; J3480; J7030; J7060; Q9967; U0003